=== PATIENT | male | born 1990 | race Caucasian/White ===

== ENCOUNTER 2024-12-14 15:56 | Inpatient (IN) | payer OTHER, SELFPAY ==
--- NOTE | ~2024-12-14 | XR_ITS ---
CLINICAL HISTORY: fever, ? aspiration 1 view chest x-ray Comparison: CT/SR - CT ANGIO CHEST PE PROTOCOL - 12/14/24 19:49 EDT Findings: Small right pleural effusion and underlying consolidative changes. Right lower lobe pneumonia is suspected. Heart size is normal. No acute fracture. IMPRESSION: Small right pleural effusion and underlying consolidative changes. Right lower lobe pneumonia is suspected. This document has been electronically signed by: Bernice Smith MD on 12/15/2024 20:40:26
--- NOTE | ~2024-12-14 | IR_ITS ---
EXAMINATION: XR FLUOROSCOPY guided lumbar puncture. CLINICAL INFORMATION: Altered mental status. Sepsis. COMPARISON: None available. TECHNIQUE: Following explaining procedure, benefits in risk, a written consent was obtained by 2 physicians as a necessity. Patient was placed prone on fluoroscopy table and and markers was placed on skin along the L4-5 disc level. The L4-5 disc level was cleaned and draped in usual sterile manner. A 22-gauge spinal needle was advanced from the marked site and the skin intrathecally at the L4-5 disc level. Stylet was removed and CSF fluid was collected in 4 test tubes. Postprocedure stylet was reintroduced and needle withdrawn. Complete hemostasis at puncture site. Sterile Band-Aid was placed at the puncture site. FINDINGS: Fluoroscopy lumbar puncture performed at L4-5 disc level. Approximately 14.5 mL of CSF fluid was collected. Opening CSF pressure measured 13.5 cm. FLUOROSCOPY TIME: 1.1 minute DOSE AREA PRODUCT: 0.976 uGy-m2 (microgray-meter squared) IR/IR fluoroscopy <1hr IMPRESSION: Successful fluoroscopy-guided L4-5 lumbar puncture performed. CSF fluid collected was sent to lab as per referring physician's orders. Electronically signed by: Liam Olea MD 12/18/2024 12:41 PM EDT
--- NOTE | ~2024-12-14 | CT_ITS ---
CLINICAL HISTORY: hypoxia, tachypnea CT angiography chest with contrast. 3D Postprocessing. Comparison: None Findings: Study degraded by motion artifact. The heart is normal size. RV/LV ratio is normal. The thoracic aorta is normal caliber. No central pulmonary embolus. Peripheral pulmonary embolus not excluded on this study. Bilateral posterior pulmonary opacities [id number]-left likely atelectasis but pneumonia not entirely excluded especially in the right lung base. Minimal lingular subsegmental atelectasis versus scarring. No pleural effusion pneumothorax Thyroid was not imaged. Mild wall thickening in mid to distal thoracic esophagus possibly mild esophagitis. Low-attenuation of the liver suggestive of steatosis Mild lateral curvature upper thoracic spine may represent mild scoliosis otherwise normal alignment. No acute fracture IMPRESSION: 1. No central pulmonary emboli. Limited examination for peripheral pulmonary embolism. 2. Posterior bilateral pulmonary opacities [id number]-left likely atelectasis but pneumonia not entirely excluded. 3. Mild wall thickening of mid to distal thoracic esophagus may represent mild esophagitis. This document has been electronically signed by: Taisha Orosco MD on 12/14/2024 21:45:35
--- NOTE | ~2024-12-14 | CT_ITS ---
CLINICAL HISTORY: altered mental status CT head without contrast Comparison: None Findings: No intra-axial mass, midline shift, hydrocephalus, or acute hemorrhage. No significant atrophy-like change or white matter disease. Mucosal thickening in bilateral maxillary sinuses [id number]-right. The orbits are unremarkable. There is no acute skull fracture. IMPRESSION: 1. No acute intracranial findings. This document has been electronically signed by: Taisha Orosco MD on 12/14/2024 21:29:32
--- NOTE | ~2024-12-14 | MR_ITS ---
EXAMINATION: MR BRAIN WITHOUT CONTRAST CLINICAL INFORMATION: Encephalopathy. COMPARISON: Correlated to CT dated December 14, 2024. TECHNIQUE: MRI of the brain was obtained using routine sequences without contrast. FINDINGS: No restricted diffusion. No acute intracranial hemorrhage, mass effect, midline shift, hydrocephalus or herniation. Bilateral, a few, scattered, less than 2 mm subcortical and deep white matter hyperintense T2 FLAIR signal involving centrum semiovale and burgos radiata, nonspecific. Flow-void signal within the main cerebral vessels is normal. Mild prominence of the extra-axial CSF spaces cerebral sulci. Cavum septum pellucidum, congenital. Posterior cranial fossa contents demonstrated no signal abnormality or gross masses. Sellar/suprasellar region demonstrates no signal abnormality or masses. Craniocervical junction is intact and normal. Polypoid mucosal thickening, maxillary sinuses more pronounced on the left side. MR/MR head/brain wo con IMPRESSION: No acute stroke/ischemia or acute brain abnormality. Electronically signed by: Lenard Quiroga MD 12/18/2024 07:19 AM EDT
--- NOTE | ~2024-12-14 | XR_ITS ---
CLINICAL HISTORY: low oxygen sats 1 view chest x-ray Comparison: None Findings: Heart size is top-normal. Mild elevation of the right hemidiaphragm. No consolidation, significant pleural effusion or pneumothorax. No acute fracture. Possible healed left clavicular fracture. IMPRESSION: 1. No acute findings. This document has been electronically signed by: Taisha Orosco MD on 12/14/2024 18:47:33
[2024-12-14 16:06] VITALS: BP 155/102; PULSE 100; RESP 35; TEMP 36.7; O2SAT 90; BMI 29.8
--- NOTE | 2024-12-14 16:10 | ECG_ITS ---
Test Reason : TACHYCARDIA Blood Pressure : */* mmHG Vent. Rate : 99 BPM Atrial Rate : 99 BPM P-R Int : 132 ms QRS Dur : 80 ms QT Int : 356 ms P-R-T Axes : 59 90 -16 degrees QTcB Int : 456 ms Normal sinus rhythm Rightward axis Abnormal QRS-T angle, consider primary T wave abnormality Abnormal ECG No previous ECGs available Referred By: Generic ED Physician Electronically Signed By: Jordon Baldwin
--- NOTE | 2024-12-14 16:24 | PC.NURSE ---
patient presents from [facility] facility, patient admitted on 12/11. patient presents today after being non verbal at facility, pacing back and forth in hallways. patient stated at facility I cant do this and has since been non verbal. ems found patient pacing down back hallway, with nasal mucous all over face, patient allowed featheredger and reducer machine to clean him up. in ED patient appears to be anxious, remains non verbal. patient is shaking left hand. patient only answered how tall he was, will not answer any other questions. patient allowed for vital signs and ekg. patient has sitter at bedside for safety, elopement band placed on patient.
--- NOTE | 2024-12-14 16:25 | ED_ITS ---
HPI - General Adult General Chief complaint: Altered Mental Status Stated complaint: non verbal, violent Time Seen by Provider: 12/14/24 16:25 History of Present Illness ED Provider: Ana Rosa SMITH narrative: The patient is a 34-year-old male who was sent to the emergency room here from the [facility]. History is limited as the patient is not speaking at the moment. According to paperwork from the [facility] the patient normally lives in [facility]. He had presented to a local emergency room because of behavioral changes. He has been admitted to the [facility] facility 3 days ago on December 11. According to the HPI at [facility] he presented with a flat affect and minimal verbalization throughout the assessment. He was described as displaying a poverty of thought and delay in response. However the patient was able to consent to have his provide additional information regarding his past psychiatric history. The patient seems to have a history of bipolar disorder and anxiety. Apparently the patient was sent to the emergency room here today because of an increasing degree of nonverbal behavior and also because of tachycardia and diaphoresis. No fever reported. The patient's medications at [facility] has been lamotrigine 50 mg b.i.d., propranolol 20 mg t.i.d., lorazepam 1 mg t.i.d., and daily nicotine patches. The patient seems to be awake and has his eyes open but he does not answer any questions. I was later able to speak with staff at [facility]. They told me that the patient seems to has been becoming increasingly catatonic over the last few days but that he has also had unusual bursts of energy where he has been running around and seeming to be excited. During these episodes however he has not been verbal. They say that during the episodes of excitement or agitation he has seemed to have trouble processing information. They also say that he has been incontinent of both stool and urine. They confirmed that there has not been a fever. They say that he was very sweaty at 1 point but that may be because of his degree of exertion when he was agitated. Apparently the patient has been receiving Zyprexa and Seroquel but these were stopped today. Overall the staff at the [facility] felt that his behavior was very concerning and felt he needed a medical evaluation and so sent him to the hospital here. They gave me the phone number for his Jes, . I was later able to speak to the patient's . She tells me that the patient was hospitalized 6 years ago for a manic episode at [facility]. After that hospitalization the patient was on a stable medication regimen of olanzapine, quetiapine, propranolol, lamotrigine, and lorazepam. She further told me that his medications were prescribed for a long time by his primary care doctor. 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 Because of the gap in prescribing coverage he was told he would have to go to the emergency room. She says that he 1st went to an emergency room on November 30 and was given a small prescription for lorazepam. He later had to return to the emergency room for another small prescription of lorazepam. The patient's tells me that the patient became increasingly withdrawn. He was not able to sleep. She says he could not eat. He seemed chronically nauseated and seemed to be losing weight. He stopped taking his other medications because he felt he could not eat. Ultimately, after not sleeping for 72 hours, she took him to an emergency room at [facility] last week on December 11. She says he was then transferred to [facility] on the . The patient's tells me that the patient is a cigarette smoker but that he does not use alcohol or street drugs or marijuana. Related Data Allergies Allergy/AdvReac Type Severity Reaction Status Date / Time sertraline [From Zoloft] Allergy Unknown Verified 12/14/24 16:10 Review of Systems 2 Review of Systems: Yes Unobtainable due to mental status [facility] Social History Social History Unable to assess alcohol history related to: Unable to respond and Refusing to respond Use of substances other than those prescribed or required for medical reasons: Refusing to respond Advance Directives: No Advance Directives Information Provided: Yes Do you have a plan to hurt others: No Plan Physical Exam ED Vital Signs: Vital Signs - 24 hr 12/14/24 16:06 12/14/24 17:36 12/14/24 19:44 Temperature 98.1 F Pulse Rate 100 90 Respiratory Rate 35 H 20 16 Blood Pressure 155/102 H 126/85 Pulse Oximetry 90 L 93 Oxygen Delivery Method Room Air Nasal Cannula Oxygen Flow Rate 2 12/14/24 20:00 12/14/24 22:00 12/15/24 00:00 Temperature 96.9 F 97.5 F 98.7 F Pulse Rate 86 82 100 Respiratory Rate 21 H 23 H 25 H Blood Pressure 144/95 H 146/81 H 137/94 H Pulse Oximetry 95 98 92 Oxygen Delivery Method Nasal Cannula Nasal Cannula Room Air Oxygen Flow Rate 2 2 BMI result Body Mass Index 29.8 Const Other: The patient is a well-developed 34-year-old. He seems to be awake because his eyes are open but he is not answering questions. Occasionally he will look at me. He seemed to be tremulous in his left hand but this seemed interruptible. He felt cool to the touch. HENMT Other: Face is symmetrical. Mucous membranes appear moist. Eyes Other: Pupils are midsize and equal, they are reactive to light, conjunctivae are clear, extraocular movements seem intact. Neck Other: No nuchal rigidity. No masses. Resp Effort & Inspection: normal respiratory effort Auscultation: clear to auscultation bilaterally Cardio Rate: tachycardic Rhythm: regular rhythm Heart sounds: S1 normal heart sound present and S2 normal heart sound present GI Other: The abdomen is soft and not apparently tender Skin Other: Skin was cool and pale and slightly moist but not frankly diaphoretic. Neuro Other: The patient seems to be awake. His eyes are open and he makes eye contact however the most part he did not answer questions. Initially he did not answer questions at all. Later he spoke somewhat but very look chronically. He had no dysarthria. His face seems symmetrical. He moves his neck easily. His neck is supple. He seems to have symmetrical tone in his extremities. 2+ reflexes at the knees and ankles. No clonus. Extrem Other: There is no peripheral edema. No calf swelling or tenderness or asymmetry. The feet seem well-perfused. He has good dorsalis pedis pulses bilaterally. Psych Other: The patient is awake and makes eye contact but seems to have an intense stare. It is not clear if he is able to process what is said to him. Only occasionally what he speak and there was certainly a paucity of speech. Medications Administered Discontinued Medications Generic Name Dose Route Start Last Admin Trade Name Jose PRN Reason Stop Dose Admin Diazepam 10 mg 12/14/24 18:34 12/14/24 18:41 Diazepam 10 Mg/2 Ml Cartridge IVPUSH 12/14/24 18:35 10 mg STAT STA Administration Haloperidol Lactate 5 mg 12/14/24 23:32 12/14/24 23:38 Haloperidol Lactate 5 Mg/Ml Vial IVPUSH 12/14/24 23:33 5 mg STAT STA Administration Lactated Ringer's 1,000 mls @ 999 mls/hr 12/14/24 18:15 12/14/24 19:30 Lr IV 12/14/24 19:15 Infused .Q1H1M VLADIMIR Infusion Lactated Ringer's 1,000 mls @ 999 mls/hr 12/14/24 20:30 12/14/24 21:26 Lr IV 12/14/24 21:30 Infused .Q1H1M VLADIMIR Infusion Iohexol 65 ml 12/14/24 20:01 12/14/24 20:01 Iohexol 350 Mg/Ml 100 Ml Infus..Btl IV 12/14/24 20:02 65 ml ONCE ONE Administration Lorazepam 2 mg 12/14/24 17:27 12/14/24 17:37 Lorazepam 2 Mg/Ml Vial IVPUSH 12/14/24 17:28 2 mg ONCE ONE Administration Lorazepam 2 mg 12/14/24 23:32 12/14/24 23:38 Lorazepam 2 Mg/Ml Vial IVPUSH 12/14/24 23:33 2 mg ONCE ONE Administration Lorazepam 2 mg 12/15/24 01:05 12/15/24 01:11 Lorazepam 2 Mg/Ml Vial IVPUSH 12/15/24 01:06 2 mg ONCE ONE Administration Medical Decision Making Medical Decision Making [facility] Narrative: The patient is a 34-year-old male with a history of a previous psychiatric hospitalization 6 years ago at [facility]. Apparently he was manic at the time. At discharge from [facility] 6 years ago he was on olanzapine, quetiapine, propranolol, lamotrigine, and lorazepam. According to the patient's the patient was fairly stable on these medications. His medications were prescribed by his PCP, Dr. Neri Li of [place], he did not have a psychiatrist. His PCP recently and although the patient was able to find a prescriber for his other medications he was not continued on his lorazepam. The last regular prescription the patient was able to citrus picker was on November 03 when he received a 28 day supply of lorazepam 1 mg b.i.d.. He went to an emergency room on November 30 and was prescribed 15 tablets of 0.5 mg lorazepam. This was supposed to last in 5 days. Apparently became quite withdrawn and sleepless after the reduction in his medications and his says that he had ultimately not slept for 3 days before she took him to the emergency room at [facility] on December 11. He was transferred to the [facility] the next day on December 12. He has been behaving strangely at the [facility]. I believe he has not been taking medications there. He has alternated between being catatonic and hyperactive. Here the patient seems to have a thought disorder. It is not clear whether he is responding to internal stimuli or whether he has trouble processing language. However he has a paucity of speech. He makes eye contact. Does not have any focal neurological deficit. His oxygen saturations were somewhat low and he was tachypneic although he did not appear in respiratory distress. Therefore ultimately a CT pulmonary angiogram was done that does not show signs of a PE. There were findings of atelectasis on the CT. I doubt he [place] pneumonia. [place] [id number]. However he is not febrile. His CRP is not significantly elevated. My overall impression was that the patient has behaviors probably related to his change in medications and I thought perhaps he was experiencing benzodiazepine withdrawal. Was 1st given 2 mg of IV lorazepam and later 10 mg of IV diazepam. He seemed to improve somewhat. He spoke a bit more any ate some food. He was able to stand and urinate in a urinal. However this seemed to be a transient improvement and he was given additional IV lorazepam and also 5 mg of IV haloperidol. He did not seem to have any beneficial result from the haloperidol. He seemed somewhat more agitated temporarily after the haloperidol. [facility] and spoke to a flight test shop mechanic. The flight test shop mechanic was not convinced that the patient's symptoms were likely a manifestation of benzodiazepine withdrawal. 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 At this point the patient remains primarily catatonic. His opens his eyes and makes eye contact but speaks very little. I will try additional IV lorazepam. Given his lack of improvement I do not think it would be appropriate to return him to [facility]. Given that he has seemed medically stable I do not see an indication for medical hospitalization. I think it would be reasonable to keep the patient in the emergency room for a Psychiatry consult in the morning to see if they have any additional recommendations for his care. Lab Data 12/14/24 17:16 12/14/24 17:12 Labs: Lab Results 12/14/24 12/14/24 12/14/24 Range/Units 17:09 17:10 17:11 WBC (4.8-10.8) X10*3/uL RBC (4.60-5.80) X10*6/uL Hgb (14.0-18.0) g/dl Hct (42.0-52.0) % MCV (80.0-98.0) fL MCH (27.0-33.0) pg MCHC (31.0-36.0) g/dl RDW (11.0-16.0) % Plt Count (160-400) X10*3/uL MPV (9.4-12.4) fL Immature Gran % (Auto) (0.0-0.4) % Neut % (Auto) (45-73) % Lymph % (Auto) (20-40) % [place] % (Auto) (2-11) % Eos % (Auto) (0-4) % Baso % (Auto) (0-2) % Lymph # (Auto) (1.2-4.9) X10*3/uL [place] # (Auto) (0.1-1.2) X10*3/uL Eos # (Auto) (0.0-0.4) X10*3/uL Baso # (Auto) (0.0-0.2) X10*3/uL Abs Immat Gran (auto) (0.00-0.03) X10*3/uL Absolute Neuts (auto) (2.0-8.3) x10*3/uL Absolute Nucleated RBC (0.0-0.012) X10*3/uL Nucleated RBC % (auto) (0.0-0.2) /100WBC Hold Purple Top PT 13.0 H (10.9-12.4) SEC INR 1.1 (0.9-1.1) D-Dimer High Sensitivty < 150 NG/ML VBG pH (7.32-7.43) VBG pCO2 mmHg VBG pO2 mmHg VBG HCO3 (22-26) mmol/L VBG O2 Saturation % VBG Base Excess mmol/L Sodium (135-145) mmol/L Potassium (3.3-5.1) mmol/L Chloride (96-108) mmol/L Carbon Dioxide (22-29) mmol/L Anion Gap (12-20) BUN (9-16) mg/dL Creatinine (0.5-1.4) mg/dL Estim Creat Clear Calc Estimated GFR Random Glucose (60-115) mg/dL Osmolality 303 (281-305) mosm/kg Lactic Acid (0.5-2.0) mmol/L Calcium (8.4-10.2) mg/dL Magnesium (1.6-2.6) mg/dL Total Bilirubin (0.0-1.0) mg/dL Direct Bilirubin (0.0-0.5) mg/dL AST (5-37) U/L ALT (0-40) U/L Alkaline Phosphatase (39-117) U/L Ammonia (13-55) umol/L Total Creatine Kinase (38-174) U/L Troponin I High Sens 28.6 (<3.5-35.0) ng/L C-Reactive Protein (< or = 0.50) mg/dL B-Natriuretic Peptide (<100) pg/mL Total Protein (6.5-8.0) g/dL Albumin (3.5-5.0) g/dL Lipase (8-78) U/L TSH (0.32-4.0) uIU/mL Hold Green Top See Note Urine Color Urine Appearance Urine pH (5.0-9.0) Ur Specific [place] (1.005-1.025) Urine Protein (Neg-Trace) mg/dL Urine Glucose (UA) (Negative) mg/dL Urine Ketones (Negative) mg/dL Urine Blood (Negative) Urine Nitrite (Negative) Ur Leukocyte Esterase (Negative) Salicylates < 5.0 L (15-30) mg/dL Urine Opiates Screen (Not Detect) Ur Buprenorphine Scrn (Not Detect) ng/mL Ur Oxycodone Screen (Not Detect) ng/mL Urine Methadone Screen (Not Detect) ng/mL Urine Fentanyl Screen (Not Detect) Acetaminophen < 3 (<30) mcg/mL Ur Barbiturates Screen (Not Detect) Ur Phencyclidine Scrn (Not Detect) Ur Amphetamines Screen (Not Detect) U Benzodiazepines Scrn (Not Detect) Urine Cocaine Screen (Not Detect) U Marijuana (THC) Screen (Not Detect) Ethyl Alcohol mg/dL Influenza Type A (PCR) NEGATIVE (Negative) Influenza Type B (PCR) NEGATIVE (Negative) RSV RNA Qual (PCR) NEGATIVE (Negative) SARS-CoV-2 RNA (RT-PCR) NEGATIVE (Negative) 12/14/24 12/14/24 12/14/24 Range/Units 17:12 17:16 17:19 WBC 16.9 H (4.8-10.8) X10*3/uL RBC 5.52 (4.60-5.80) X10*6/uL Hgb 18.2 H (14.0-18.0) g/dl Hct 49.3 (42.0-52.0) % MCV 89.3 (80.0-98.0) fL MCH 33.0 (27.0-33.0) pg MCHC 36.9 H (31.0-36.0) g/dl RDW 12.1 (11.0-16.0) % Plt Count 256 (160-400) X10*3/uL MPV 10.7 (9.4-12.4) fL Immature Gran % (Auto) 0.4 (0.0-0.4) % Neut % (Auto) 81.6 H (45-73) % Lymph % (Auto) 12.1 L (20-40) % [place] % (Auto) 5.6 (2-11) % Eos % (Auto) 0.1 (0-4) % Baso % (Auto) 0.2 (0-2) % Lymph # (Auto) 2.1 (1.2-4.9) X10*3/uL [place] # (Auto) 0.9 (0.1-1.2) X10*3/uL Eos # (Auto) 0.0 (0.0-0.4) X10*3/uL Baso # (Auto) 0.0 (0.0-0.2) X10*3/uL Abs Immat Gran (auto) 0.06 H (0.00-0.03) X10*3/uL Absolute Neuts (auto) 13.8 H (2.0-8.3) x10*3/uL Absolute Nucleated RBC 0.000 (0.0-0.012) X10*3/uL Nucleated RBC % (auto) 0.0 (0.0-0.2) /100WBC Hold Purple Top SEE NOTE PT (10.9-12.4) SEC INR (0.9-1.1) D-Dimer High Sensitivty NG/ML VBG pH 7.38 (7.32-7.43) VBG pCO2 31 mmHg VBG pO2 81 mmHg VBG HCO3 19 L (22-26) mmol/L VBG O2 Saturation 96.0 % VBG Base Excess -4.5 mmol/L Sodium 144 (135-145) mmol/L Potassium 4.6 (3.3-5.1) mmol/L Chloride 109 H (96-108) mmol/L Carbon Dioxide 20 L (22-29) mmol/L Anion Gap 20 (12-20) BUN 25 H (9-16) mg/dL Creatinine 1.24 (0.5-1.4) mg/dL Estim Creat Clear Calc 100.7 Estimated GFR > 60 Random Glucose 113 (60-115) mg/dL Osmolality (281-305) mosm/kg Lactic Acid 1.0 (0.5-2.0) mmol/L Calcium 9.7 (8.4-10.2) mg/dL Magnesium 2.5 (1.6-2.6) mg/dL Total Bilirubin 1.0 (0.0-1.0) mg/dL Direct Bilirubin 0.4 (0.0-0.5) mg/dL AST 41 H (5-37) U/L ALT 36 (0-40) U/L Alkaline Phosphatase 85 (39-117) U/L Ammonia 49 (13-55) umol/L Total Creatine Kinase 518 H (38-174) U/L Troponin I High Sens (<3.5-35.0) ng/L C-Reactive Protein 1.48 H (< or = 0.50) mg/dL B-Natriuretic Peptide < 10 (<100) pg/mL Total Protein 7.9 (6.5-8.0) g/dL Albumin 4.8 (3.5-5.0) g/dL Lipase 13 (8-78) U/L TSH 0.66 (0.32-4.0) uIU/mL Hold Green Top Urine Color Urine Appearance Urine pH (5.0-9.0) Ur Specific [place] (1.005-1.025) Urine Protein (Neg-Trace) mg/dL Urine Glucose (UA) (Negative) mg/dL Urine Ketones (Negative) mg/dL Urine Blood (Negative) Urine Nitrite (Negative) Ur Leukocyte Esterase (Negative) Salicylates (15-30) mg/dL Urine Opiates Screen (Not Detect) Ur Buprenorphine Scrn (Not Detect) ng/mL Ur Oxycodone Screen (Not Detect) ng/mL Urine Methadone Screen (Not Detect) ng/mL Urine Fentanyl Screen (Not Detect) Acetaminophen (<30) mcg/mL Ur Barbiturates Screen (Not Detect) Ur Phencyclidine Scrn (Not Detect) Ur Amphetamines Screen (Not Detect) U Benzodiazepines Scrn (Not Detect) Urine Cocaine Screen (Not Detect) U Marijuana (THC) Screen (Not Detect) Ethyl Alcohol < 10 mg/dL Influenza Type A (PCR) (Negative) Influenza Type B (PCR) (Negative) RSV RNA Qual (PCR) (Negative) SARS-CoV-2 RNA (RT-PCR) (Negative) 12/14/24 12/14/24 Range/Units 20:36 22:26 WBC (4.8-10.8) X10*3/uL RBC (4.60-5.80) X10*6/uL Hgb (14.0-18.0) g/dl Hct (42.0-52.0) % MCV (80.0-98.0) fL MCH (27.0-33.0) pg MCHC (31.0-36.0) g/dl RDW (11.0-16.0) % Plt Count (160-400) X10*3/uL MPV (9.4-12.4) fL Immature Gran % (Auto) (0.0-0.4) % Neut % (Auto) (45-73) % Lymph % (Auto) (20-40) % [place] % (Auto) (2-11) % Eos % (Auto) (0-4) % Baso % (Auto) (0-2) % Lymph # (Auto) (1.2-4.9) X10*3/uL [place] # (Auto) (0.1-1.2) X10*3/uL Eos # (Auto) (0.0-0.4) X10*3/uL Baso # (Auto) (0.0-0.2) X10*3/uL Abs Immat Gran (auto) (0.00-0.03) X10*3/uL Absolute Neuts (auto) (2.0-8.3) x10*3/uL Absolute Nucleated RBC (0.0-0.012) X10*3/uL Nucleated RBC % (auto) (0.0-0.2) /100WBC Hold Purple Top PT (10.9-12.4) SEC INR (0.9-1.1) D-Dimer High Sensitivty NG/ML VBG pH (7.32-7.43) VBG pCO2 mmHg VBG pO2 mmHg VBG HCO3 (22-26) mmol/L VBG O2 Saturation % VBG Base Excess mmol/L Sodium (135-145) mmol/L Potassium (3.3-5.1) mmol/L Chloride (96-108) mmol/L Carbon Dioxide (22-29) mmol/L Anion Gap (12-20) BUN (9-16) mg/dL Creatinine (0.5-1.4) mg/dL Estim Creat Clear Calc Estimated GFR Random Glucose (60-115) mg/dL Osmolality (281-305) mosm/kg Lactic Acid (0.5-2.0) mmol/L Calcium (8.4-10.2) mg/dL Magnesium (1.6-2.6) mg/dL Total Bilirubin (0.0-1.0) mg/dL Direct Bilirubin (0.0-0.5) mg/dL AST (5-37) U/L ALT (0-40) U/L Alkaline Phosphatase (39-117) U/L Ammonia (13-55) umol/L Total Creatine Kinase 416 H (38-174) U/L Troponin I High Sens 13.5 D (<3.5-35.0) ng/L C-Reactive Protein (< or = 0.50) mg/dL B-Natriuretic Peptide (<100) pg/mL Total Protein (6.5-8.0) g/dL Albumin (3.5-5.0) g/dL Lipase (8-78) U/L TSH (0.32-4.0) uIU/mL Hold Green Top Urine Color Yellow Urine Appearance Clear Urine pH 6.0 (5.0-9.0) Ur Specific [place] >= 1.030 H (1.005-1.025) Urine Protein Trace (Neg-Trace) mg/dL Urine Glucose (UA) Negative (Negative) mg/dL Urine Ketones 80 (Negative) mg/dL Urine Blood Negative (Negative) Urine Nitrite Negative (Negative) Ur Leukocyte Esterase Negative (Negative) Salicylates (15-30) mg/dL Urine Opiates Screen Not Detected (Not Detect) Ur Buprenorphine Scrn Not Detected (Not Detect) ng/mL Ur Oxycodone Screen Not Detected (Not Detect) ng/mL Urine Methadone Screen Not Detected (Not Detect) ng/mL Urine Fentanyl Screen Not Detected (Not Detect) Acetaminophen (<30) mcg/mL Ur Barbiturates Screen Not Detected (Not Detect) Ur Phencyclidine Scrn Not Detected (Not Detect) Ur Amphetamines Screen Not Detected (Not Detect) U Benzodiazepines Scrn POSITIVE H (Not Detect) Urine Cocaine Screen Not Detected (Not Detect) U Marijuana (THC) Screen Not Detected (Not Detect) Ethyl Alcohol mg/dL Influenza Type A (PCR) (Negative) Influenza Type B (PCR) (Negative) RSV RNA Qual (PCR) (Negative) SARS-CoV-2 RNA (RT-PCR) (Negative) Independent Interpretation I performed an independent interpretation of an: EKG Interpretation: EKG at 16:14 shows normal sinus rhythm at 99 beats per minute. No definite acute ischemic changes. Critical Care Time Critical Care Time Critical Care Time: Yes Total Critical Care Time: 60 Attestation: The patient was critically ill with a high probability of imminent or life- threatening deterioration. ?I spent greater than 30 minutes of discontinuous time evaluating the patient, delivering critical care at the bedside, discussing evaluating data with consultants. ?Critical care time does not include time spent performing separately billable procedures or teaching. ?Time spent performing critical care with 60 minutes. Discharge Plan Discharge Clinical Impression: Altered mental status, Catatonia Patient Disposition: Still a Patient Print Language: Nam[place]
--- NOTE | 2024-12-14 16:35 | PC.NURSE ---
patient noted to have two nicotine patches on. one dated for today and one undated. undated patch taken off
[2024-12-14 17:21] LABS: MANUAL DIFF FLAG NO
--- NOTE | 2024-12-14 17:23 | PC.NURSE ---
shelly simmons contacted by this RN for collateral information for
[2024-12-14 17:24] LABS: Venous Blood Gas Refer to POC result
[2024-12-14 17:24] LABS: VBG Base Excess -4.5 mmol/L; VBG HCO3 19 mmol/L (22-26); VBG pCO2 31 mmHg; VBG pH 7.38 (7.32-7.43); VBG pO2 81 mmHg
[2024-12-14 17:25] LABS: Basophils Percent Auto 0.2 % (0-2); Eosinophils Percent Auto 0.1 % (0-4); Hematocrit 49.3 % (42.0-52.0); Hemoglobin 18.2 g/dl (14.0-18.0); Imm Gran Abs Auto 0.06 X10*3/uL (0.00-0.03); Imm Gran Pct Auto 0.4 % (0.0-0.4); Lymphocytes Absolute Auto 2.1 X10*3/uL (1.2-4.9); Lymphocytes Percent Auto 12.1 % (20-40); Mean Corpuscular HGB Conc 36.9 g/dl (31.0-36.0); Mean Corpuscular Volume 89.3 fL (80.0-98.0); Mean Platelet Volume 10.7 fL (9.4-12.4); Monocytes Absolute Auto 0.9 X10*3/uL (0.1-1.2); Monocytes Percent Auto 5.6 % (2-11); Neutrophils Absolute Auto 13.8 x10*3/uL (2.0-8.3); Neutrophils Percent Auto 81.6 % (45-73); Platelet Count 256 X10*3/uL (160-400); Red Blood Count 5.52 X10*6/uL (4.60-5.80); Red Cell Distribution Width 12.1 % (11.0-16.0); White Blood Count 16.9 X10*3/uL (4.8-10.8)
[2024-12-14 17:36] VITALS: BP 126/85; PULSE 90; RESP 20; O2SAT 93
[2024-12-14 17:36] LABS: Ammonia 49 umol/L (13-55)
[2024-12-14] MEDS: LORazepam 2 MG/ML VIAL IVPUSH ×2 (17:37→23:38)
--- NOTE | 2024-12-14 17:45 | PC.NURSE ---
patient spoke to this RN stated why is all this shit on me , patient was referring to cardiac leads. patient desat down to 88% on room air, placed on 2l NC. patient medicated per MAR, patient abdomen palpated soft and non tender, patient chest palpated, patient states he had pain in the center of chest, patient stated he had a cold prior to going to [facility]. patient stated he feels as if he is seeing flashing lights, patient also stated that he was having a hard time answering questions due to auditory hallucinations. patient remains awake and alert, patient not able to answer where he is/year/situation.
[2024-12-14 17:46] LABS: B Type Natriuretic Peptide < 10 pg/mL (<100)
[2024-12-14 17:53] LABS: Alanine Aminotransferase 36 U/L (0-40); Albumin Level 4.8 g/dL (3.5-5.0); Alkaline Phosphatase 85 U/L (39-117); Anion Gap 20 (12-20); Aspartate Amino Transferase 41 U/L (5-37); Bilirubin Direct 0.4 mg/dL (0.0-0.5); Blood Urea Nitrogen 25 mg/dL (9-16); C Reactive Protein 1.48 mg/dL (< or = 0.50); Calcium 9.7 mg/dL (8.4-10.2); Carbon Dioxide 20 mmol/L (22-29); Chloride 109 mmol/L (96-108); Creatinine Clr Calc Pharmacy 100.7; Estimated Glomerular Filt Rate > 60; Ethanol < 10 mg/dL; Glucose Random 113 mg/dL (60-115); Lipase 13 U/L (8-78); Magnesium 2.5 mg/dL (1.6-2.6); Potassium 4.6 mmol/L (3.3-5.1); Sodium 144 mmol/L (135-145); Total Protein 7.9 g/dL (6.5-8.0)
[2024-12-14 17:53] LABS: Acetaminophen LAB < 3 mcg/mL (<30); Salicylate < 5.0 mg/dL (15-30)
[2024-12-14 17:54] LABS: Troponin-I High Sensitivity 28.6 ng/L (<3.5-35.0)
[2024-12-14 18:07] LABS: INTERNATIONAL NORM RATIO 1.1 (0.9-1.1)
[2024-12-14 18:10] LABS: Osmolality, Serum 303 mosm/kg (281-305)
[2024-12-14] MEDS: Lactated Ringers 1,000 ML 999 ML IV ×2 (18:18→20:25)
--- NOTE | 2024-12-14 18:33 | PC.NURSE ---
patient becoming more talkative, requested water. patient given water.
[2024-12-14] MEDS: diazePAM 10 MG/2 ML CARTRIDGE IVPUSH (18:41)
[2024-12-14 18:53] LABS: D Dimer High Sensitivity < 150 NG/ML
[2024-12-14 18:55] LABS: Influenza A PCR NEGATIVE (Negative); Influenza B PCR NEGATIVE (Negative); Resp Syncy Virus RNA Qual PCR NEGATIVE (Negative); SARS COV2 PCR INHOUSE NEGATIVE (Negative)
--- NOTE | 2024-12-14 19:07 | PC.NURSE ---
Assumed care for pt. Pt sleeping at the bedside, diaphoretic. O2 sat 88%. Pt placed on 2L NC with O2 improvement to 96%. NSR monitor with HR 80's. made aware. 1:1 sitter at bedside. Monitoring is ongoing.
[2024-12-14 19:44] VITALS: RESP 16
[2024-12-14 20:00] VITALS: BP 144/95; PULSE 86; RESP 21; TEMP 36.1; O2SAT 95
[2024-12-14] MEDS: iohexoL 350 MG/ML 100 ML INFUS..BTL 65 ML IV (20:01)
[2024-12-14 20:48] LABS: Thyroid Stimulating Hormone 0.66 uIU/mL (0.32-4.0)
[2024-12-14 21:03] LABS: Troponin-I High Sensitivity 13.5 ng/L (<3.5-35.0)
[2024-12-14 22:00] VITALS: BP 146/81; PULSE 82; RESP 23; TEMP 36.4; O2SAT 98
[2024-12-14 22:34] LABS: Appearance Urine Clear; Color Urine Yellow; Glucose Urine UA Negative (Negative); Leukocyte Esterase Urine Negative (Negative); Nitrite Urine Negative (Negative); Specific Gravity - Urine >= 1.030 (1.005-1.025); Urine Blood Negative (Negative); Urine Ketones 80 mg/dL (Negative); Urine Protein Trace mg/dL (Neg-Trace)
[2024-12-14 22:44] LABS: Amphetamine Screen Urine Not Detected (Not Detect); Barbiturates, Urine Not Detected (Not Detect); Benzodiazepines Screen Urine POSITIVE (Not Detect); Buprenorphine Scr Not Detected (Not Detect); Cannabinoid Screen Urine Not Detected (Not Detect); Cocaine Screen Urine Not Detected (Not Detect); Fentanyl, urine Not Detected (Not Detect); Methadone Screen, Urine Not Detected (Not Detect); Opiate Screen Urine Not Detected (Not Detect); Oxycodone Screen Urine Not Detected (Not Detect); Phencyclidine Screen Urine Not Detected (Not Detect)
[2024-12-14 23:00] LABS: Venous Blood Gas Refer to POC result
--- NOTE | 2024-12-14 23:27 | PC.NURSE ---
Pt is alert and awake. MD at bedside removed NC. Pt sustaining O2 sat at 94% RA. No apparent apparent distress noted. Pt given food and drink. Monitoring is ongoing.
[2024-12-14] MEDS: Haloperidol Lactate 5 MG/ML VIAL IVPUSH (23:38)
[2024-12-15] VITALS (16 sets, daily range): BP systolic 121–159; BP diastolic 58–109; PULSE 94–122; RESP 18–36; TEMP 36.6–39; O2SAT 2–95
[2024-12-15] MEDS: LORazepam 2 MG/ML VIAL IVPUSH ×2 (01:11→02:38)
--- NOTE | 2024-12-15 01:18 | PC.NURSE ---
This nurse made aware that pt made an attempt to leave by getting out of bed and walking out of the room. Pt redirected to the bedside by staff members. aware and new orders placed in the MAR. Pt medicated and tolerated well. Pt is awake and alert. No verbal response to questions or engage in conversation. Pt observed to be quiet and withdrawn. Appears uninterested in surroundings. No sign of distress or agitation. 1:1 sitter remains at bedside. Elopement band in place. Monitoring is ongoing.
[2024-12-15] MEDS: Dextrose 5 % and Lactated Ring 1,000 ML 200 ML IVCONT ×4 (02:45→17:27)
--- NOTE | 2024-12-15 04:15 | PC.NURSE ---
Luciano from [facility] called for an update. Update provided.
--- NOTE | 2024-12-15 04:59 | MHC.EDTECH ---
Pt given water and sandwich, had a few sips and is currently taking small bites of sandwich.
[2024-12-15] MEDS: LORazepam 2 MG/ML VIAL 1 MG IVPUSH (09:40)
--- NOTE | 2024-12-15 15:38 | PM.PSYCN ---
History of Present Illness Date of Service: 12/15/2024 Chief Complaint: non verbal, violent Reason for Consult: catatonia Discussed with referring provider: Yes Sources of Information: patient interviewed, chart reviewed and crisis/core team assessment reviewed HPI Narrative: Mr. Ledesma is a 34 year-old male who was brought via EMS from [facility]. It appears pt had been treated for catatonia and psychosis after not having his psychiatric medications due to prescribing passing away. Pertinent labs in the ED include CBC with leukocytosis (WBC 16.7), CMP without electrolyte abnormalities, BUN 25, Cr 1.24, creatinine clearance of 100. VS notable for tachepnea (RR between 22-30), mildly tachycardic, temp at some point today was 100.1 Repeat of CBC and CMP showed improvement in WBC to 13.5, BUN down to 13, Cr 0.85, creatinine clearance 146.9. No electrolyte abnormalities. LFTs wnl. ammonia 49. Head CT without any acute findings. CTA without central PE, bilat opacities more pronounced on right side. O2 sat variable from 90% on arrival, to 92-93 on RA, given nasal canula 2L intermittently. No cough. He has received total of 7mg IV ativan since arrival in the ED at 5pm on 12/14 and last dose at 9:40am. He was also given haldol 5mg IM. He was also given diazepam 10mg IM. Pt seen in the ED. He is lying in bed. His eyes are open. He does move his head. He does not respond to any questions. When asked to lift his hand he does not follow command. He does pull back when tihs technical report writer attempted to lift his arm. But when checking for waxy flexibility, pt's arm stays in same position. Some repetitive movement of the hands but not tremors nor involuntary movements, seems like purposeless behaviors. Past Psychiatric History: Inpt: liat 6 years ago. Past medication trials: olanzapine, ativan 2mg/daily Medical Evaluation Reviewed: Yes Diagnostics Vital Signs (24Hr): Vital Signs - 24 hr 12/14/24 16:06 12/14/24 17:36 12/14/24 19:44 Temperature 98.1 F Pulse Rate 100 90 Respiratory Rate 35 H 20 16 Blood Pressure 155/102 H 126/85 Pulse Oximetry 90 L 93 Oxygen Delivery Method Room Air Nasal Cannula Oxygen Flow Rate 2 03/16/25 20:00 12/14/24 22:00 12/15/24 00:00 Temperature 96.9 F 97.5 F 98.7 F Pulse Rate 86 82 100 Respiratory Rate 21 H 23 H 25 H Blood Pressure 144/95 H 146/81 H 137/94 H Pulse Oximetry 95 98 92 Oxygen Delivery Method Nasal Cannula Nasal Cannula Room Air Oxygen Flow Rate 2 2 12/15/24 02:50 12/15/24 05:01 12/15/24 06:00 Temperature 98 F Pulse Rate 107 H 105 H 112 H Respiratory Rate 25 H 24 H 27 H Blood Pressure 131/92 H 142/96 H 141/88 H Pulse Oximetry 92 92 92 Oxygen Delivery Method Room Air Nasal Cannula Nasal Cannula Oxygen Flow Rate 2 2 12/15/24 07:31 12/15/24 08:16 12/15/24 09:28 Temperature 100.1 F 99.4 F Pulse Rate 122 H 112 H 104 H Respiratory Rate 19 31 H 30 H Blood Pressure 143/98 H 131/91 H 127/74 Pulse Oximetry 92 2 L 93 Oxygen Delivery Method Nasal Cannula Room Air Nasal Cannula Oxygen Flow Rate 2 2 12/15/24 12:08 12/15/24 15:18 Temperature 99 F Pulse Rate 103 H 99 Respiratory Rate 30 H 32 H Blood Pressure 139/105 H 159/109 H Pulse Oximetry 91 L 92 Oxygen Delivery Method Nasal Cannula Room Air Oxygen Flow Rate 2 BMI result Body Mass Index 29.8 Labs 12/15/24 17:26 12/15/24 17:26 Labs: Laboratory Results - last 48 hr 12/14/24 12/14/24 12/14/24 17:09 17:10 17:11 WBC RBC Hgb Hct MCV MCH MCHC RDW Plt Count MPV Immature Gran % (Auto) Neut % (Auto) Lymph % (Auto) [place] % (Auto) Eos % (Auto) Baso % (Auto) Lymph # (Auto) [place] # (Auto) Eos # (Auto) Baso # (Auto) Abs Immat Gran (auto) Absolute Neuts (auto) Absolute Nucleated RBC Nucleated RBC % (auto) Hold Purple Top PT 13.0 H INR 1.1 D-Dimer High Sensitivty < 150 VBG pH VBG pCO2 VBG pO2 VBG HCO3 VBG O2 Saturation VBG Base Excess Sodium Potassium Chloride Carbon Dioxide Anion Gap BUN Creatinine Estim Creat Clear Calc Estimated GFR Random Glucose Osmolality 303 Lactic Acid Calcium Magnesium Total Bilirubin Direct Bilirubin AST ALT Alkaline Phosphatase Ammonia Total Creatine Kinase Troponin I High Sens 28.6 C-Reactive Protein B-Natriuretic Peptide Total Protein Albumin Lipase TSH Hold Green Top See Note Urine Color Urine Appearance Urine pH Ur Specific [place] Urine Protein Urine Glucose (UA) Urine Ketones Urine Blood Urine Nitrite Ur Leukocyte Esterase Salicylates < 5.0 L Urine Opiates Screen Ur Buprenorphine Scrn Ur Oxycodone Screen Urine Methadone Screen Urine Fentanyl Screen Acetaminophen < 3 Ur Barbiturates Screen Ur Phencyclidine Scrn Ur Amphetamines Screen U Benzodiazepines Scrn Urine Cocaine Screen U Marijuana (THC) Screen Ethyl Alcohol Influenza Type A (PCR) NEGATIVE Influenza Type B (PCR) NEGATIVE RSV RNA Qual (PCR) NEGATIVE SARS-CoV-2 RNA (RT-PCR) NEGATIVE 12/14/24 12/14/24 12/14/24 17:12 17:16 17:19 WBC 16.9 H RBC 5.52 Hgb 18.2 H Hct 49.3 MCV 89.3 MCH 33.0 MCHC 36.9 H RDW 12.1 Plt Count 256 MPV 10.7 Immature Gran % (Auto) 0.4 Neut % (Auto) 81.6 H Lymph % (Auto) 12.1 L [place] % (Auto) 5.6 Eos % (Auto) 0.1 Baso % (Auto) 0.2 Lymph # (Auto) 2.1 [place] # (Auto) 0.9 Eos # (Auto) 0.0 Baso # (Auto) 0.0 Abs Immat Gran (auto) 0.06 H Absolute Neuts (auto) 13.8 H Absolute Nucleated RBC 0.000 Nucleated RBC % (auto) 0.0 Hold Purple Top SEE NOTE PT INR D-Dimer High Sensitivty VBG pH 7.38 VBG pCO2 31 VBG pO2 81 VBG HCO3 19 L VBG O2 Saturation 96.0 VBG Base Excess -4.5 Sodium 144 Potassium 4.6 Chloride 109 H Carbon Dioxide 20 L Anion Gap 20 BUN 25 H Creatinine 1.24 Estim Creat Clear Calc 100.7 Estimated GFR > 60 Random Glucose 113 Osmolality Lactic Acid 1.0 Calcium 9.7 Magnesium 2.5 Total Bilirubin 1.0 Direct Bilirubin 0.4 AST 41 H ALT 36 Alkaline Phosphatase 85 Ammonia 49 Total Creatine Kinase 518 H Troponin I High Sens C-Reactive Protein 1.48 H B-Natriuretic Peptide < 10 Total Protein 7.9 Albumin 4.8 Lipase 13 TSH 0.66 Hold Green Top Urine Color Urine Appearance Urine pH Ur Specific [place] Urine Protein Urine Glucose (UA) Urine Ketones Urine Blood Urine Nitrite Ur Leukocyte Esterase Salicylates Urine Opiates Screen Ur Buprenorphine Scrn Ur Oxycodone Screen Urine Methadone Screen Urine Fentanyl Screen Acetaminophen Ur Barbiturates Screen Ur Phencyclidine Scrn Ur Amphetamines Screen U Benzodiazepines Scrn Urine Cocaine Screen U Marijuana (THC) Screen Ethyl Alcohol < 10 Influenza Type A (PCR) Influenza Type B (PCR) RSV RNA Qual (PCR) SARS-CoV-2 RNA (RT-PCR) 12/14/24 12/14/24 20:36 22:26 WBC RBC Hgb Hct MCV MCH MCHC RDW Plt Count MPV Immature Gran % (Auto) Neut % (Auto) Lymph % (Auto) [place] % (Auto) Eos % (Auto) Baso % (Auto) Lymph # (Auto) [place] # (Auto) Eos # (Auto) Baso # (Auto) Abs Immat Gran (auto) Absolute Neuts (auto) Absolute Nucleated RBC Nucleated RBC % (auto) Hold Purple Top PT INR D-Dimer High Sensitivty VBG pH VBG pCO2 VBG pO2 VBG HCO3 VBG O2 Saturation VBG Base Excess Sodium Potassium Chloride Carbon Dioxide Anion Gap BUN Creatinine Estim Creat Clear Calc Estimated GFR Random Glucose Osmolality Lactic Acid Calcium Magnesium Total Bilirubin Direct Bilirubin AST ALT Alkaline Phosphatase Ammonia Total Creatine Kinase 416 H Troponin I High Sens 13.5 D C-Reactive Protein B-Natriuretic Peptide Total Protein Albumin Lipase TSH Hold Green Top Urine Color Yellow Urine Appearance Clear Urine pH 6.0 Ur Specific [place] >= 1.030 H Urine Protein Trace Urine Glucose (UA) Negative Urine Ketones 80 Urine Blood Negative Urine Nitrite Negative Ur Leukocyte Esterase Negative Salicylates Urine Opiates Screen Not Detected Ur Buprenorphine Scrn Not Detected Ur Oxycodone Screen Not Detected Urine Methadone Screen Not Detected Urine Fentanyl Screen Not Detected Acetaminophen Ur Barbiturates Screen Not Detected Ur Phencyclidine Scrn Not Detected Ur Amphetamines Screen Not Detected U Benzodiazepines Scrn POSITIVE H Urine Cocaine Screen Not Detected U Marijuana (THC) Screen Not Detected Ethyl Alcohol Influenza Type A (PCR) Influenza Type B (PCR) RSV RNA Qual (PCR) SARS-CoV-2 RNA (RT-PCR) Medications Medications Current Medications Dextrose/Lactated Ringer's (D5lr) 1,000 mls @ 200 mls/hr IVCONT .Q5H VLADIMIR Last Admin: 12/15/24 13:22 Dose: 200 mls/hr Lorazepam (Lorazepam 2 Mg/Ml Vial) 2 mg IVPUSH TID VLADIMIR Allergies Allergies Allergy/AdvReac Type Severity Reaction Status Date / Time sertraline [From Zoloft] Allergy Unknown Verified 12/14/24 16:10 Assessment & Plan Assessment & Plan (1) Bipolar I disorder with catatonia: Status: Acute Code(s): F31.9 - Bipolar disorder, unspecified; F06.1 - Catatonic disorder due to known physiological condition Plan Mr. Ledesma is a 34 year-old male who was admitted to [facility] due to s/s of catatonia and psychosis. He was transferred to [facility] ED as pt increasingly more mute, not eating, not responding to benzodiazepine tx. In the ED, pt with leukocytosis, BUN elevation and Cr elevation most likely related to dehydration.Tachypnea. Mild elevation of CK 400. CTA did not show PE, bilat opacities lungs more on right than left side. He had temp of 100.1 but not further than that. He continues to present with s/s of catatonia including mutism, negativism, and waxy flexibility. Limited response to benzodiazepine thus far. Given VS abnormalities noted (tachypnea, htn, elevation in temp but not febrile)- monitor worsening of VS which may suggest a malignant catatonia versus catatonia. PLAN May need ECT. For now will start high doses of ativan 3mg IV q4 schedule. reassess tomorrow morning, if medically clear for either inpt psych or if worsens medically may need support from medicine while treating malignant catatonia (not present at the moment but given VS abnormalties along with leukocytosis need to monitor closely). This technical report writer communicated with about current plan. Total time managing care of this patient today ____ minutes.
[2024-12-15] MEDS: LORazepam 2 MG/ML VIAL 3 MG IVPUSH ×2 (15:47→19:56)
--- NOTE | 2024-12-15 15:50 | PC.NURSE ---
pt continues to be non verbal, eyes open and does make eye contact, staring at sitter at times, Dr Kan to bedside and suggested we give benzos, 3mg iv ativan given as ordered, skin wpd , sr on monito 90, sitter at bedside
--- NOTE | 2024-12-15 16:06 | PHA.MEDREC ---
Pharmacy Consult ? Medication Reconciliation Pharmacy has completed the medication reconciliation. Utilized list from [facility].
--- NOTE | 2024-12-15 17:29 | PC.NURSE ---
pt still non verbal, sr on monitor, sitter at bedside, pt had removed his o2 mult times during the day and spo2 maintained in low 90's but pt dipped down to 80 and then back up again, placed back on 2lpm stiven and informed
[2024-12-15 17:33] LABS: Basophils Percent Auto 0.2 % (0-2); Eosinophils Percent Auto 0.1 % (0-4); Hematocrit 42.7 % (42.0-52.0); Hemoglobin 14.8 g/dl (14.0-18.0); Imm Gran Abs Auto 0.06 X10*3/uL (0.00-0.03); Imm Gran Pct Auto 0.4 % (0.0-0.4); Lymphocytes Absolute Auto 2.1 X10*3/uL (1.2-4.9); Lymphocytes Percent Auto 15.2 % (20-40); MANUAL DIFF FLAG NO; Mean Corpuscular HGB Conc 34.7 g/dl (31.0-36.0); Mean Corpuscular Hemoglobin 32.1 pg (27.0-33.0); Mean Corpuscular Volume 92.6 fL (80.0-98.0); Mean Platelet Volume 10.7 fL (9.4-12.4); Monocytes Absolute Auto 0.8 X10*3/uL (0.1-1.2); Monocytes Percent Auto 6.2 % (2-11); Neutrophils Absolute Auto 10.5 x10*3/uL (2.0-8.3); Neutrophils Percent Auto 77.9 % (45-73); Platelet Count 178 X10*3/uL (160-400); Red Blood Count 4.61 X10*6/uL (4.60-5.80); Red Cell Distribution Width 12.3 % (11.0-16.0); White Blood Count 13.5 X10*3/uL (4.8-10.8)
[2024-12-15 17:49] LABS: Alanine Aminotransferase 22 U/L (0-40); Albumin Level 3.7 g/dL (3.5-5.0); Alkaline Phosphatase 66 U/L (39-117); Anion Gap 9 (12-20); Aspartate Amino Transferase 32 U/L (5-37); Blood Urea Nitrogen 13 mg/dL (9-16); Calcium 8.4 mg/dL (8.4-10.2); Carbon Dioxide 27 mmol/L (22-29); Chloride 108 mmol/L (96-108); Creatinine Clr Calc Pharmacy 146.9; Estimated Glomerular Filt Rate > 60; Glucose Random 166 mg/dL (60-115); Potassium 3.4 mmol/L (3.3-5.1); Sodium 141 mmol/L (135-145)
[2024-12-15] MEDS: Albuterol/Iprat 2.5/0.5MG 3 ML AMPUL.NEB INHALE (18:47)
[2024-12-15 19:13] LABS: C Reactive Protein 3.76 mg/dL (< or = 0.50)
--- NOTE | 2024-12-15 19:18 | P.HPHOSP_ITS ---
History of Present Illness Date of Service: 12/15/24 Attending physician on admission: Tomasa Cheek Chief Complaint: fevers, catatonia 34-year-old male with history of bipolar 1 disorder who had been admitted to [facility] from [facility] due to catatonia presented to the ED yesterday due to increased behavioral changes, medication refusal and delay in response. The patient is nonverbal and catatonic on exam and therefore review of systems is unable to be obtained. History obtained from chart as well as ED provider. Apparently, the patient's primary care provider had and he has been without his lorazepam prescription and was advised to go to the ED for refills. His reports compliance with lamotrigine, quetiapine, propranolol, and olanzapine. His reports he has been stable on these medications, however since the beginning of November, has become increasingly withdrawn and unable to sleep or eat. She reported that he had been losing weight and ultimately stopped taking his other medications as he felt he could not eat. After not sleeping for 72 hours, she took him to an emergency room at [facility] and was then transferred to [facility] on December 12. On arrival yesterday, he was tachycardic, tachypneic, and diaphoretic, nonverbal, but making eye contact. He did have a leukocytosis of 16, was not thought to have an active infection at that time. No fevers. He did ultimately desaturate to 90% and was placed on 2 L supplemental O2 with improvement to 92-95%. Head CT obtained yesterday negative for any acute intracranial abnormality. Chest x-ray yesterday without any acute cardiopulmonary abnormality. CTA of the chest negative for PE and showed posterior bilateral pulmonary opacity right greater than left likely atelectasis but pneumonia not excluded. At that time, atelectasis was favored. He was evaluated by Psychiatry who suggested patient may need ECT and recommending starting high doses of Ativan 3 mg IV q.4h to be reassessed tomorrow. Suggesting, possible need for support for medicine while treating potential malignant catatonia which was not felt to be present at the moment but given vital sign abnormalities along with leukocytosis, Psychiatry recommending close monitoring. Today, patient developed fever of 102.5 with associated tachypnea, tachycardia and persistent hypoxia to 88% on room air, maintaining O2 sat of 95% on 2 L. repeat WBC 13.5. Renal function and electrolyte levels normal. Lactic acid 1.3. Total CK 416. CRP 3.76. Urinalysis not indicative of infection but does show elevated specific gravity. Urine tox screen positive for benzos only. Repeat chest x-ray is pending. The patient has been on a regular diet with limited p.o. intake. Given hypoxia, fevers, elevated white count associated with catatonia there is suspicion for aspiration pneumonia. Review of Systems 2 Review of Systems: Yes Unobtainable due to mental status [facility] Medical History (Updated 12/15/24 @ 20:24 by Shaquille Oseguera MD) Bipolar I disorder with catatonia Social History Unable to assess alcohol history related to: Unable to respond and Refusing to respond Use of substances other than those prescribed or required for medical reasons: Refusing to respond Advance Directives: No Advance Directives Information Provided: Yes Do you have a plan to hurt others: No Plan Meds Allergies Allergy/AdvReac Type Severity Reaction Status Date / Time sertraline [From Zoloft] Allergy Unknown Verified 12/14/24 16:10 Active Medications: Current Medications Dextrose/Lactated Ringer's (D5lr) 1,000 mls @ 200 mls/hr IVCONT .Q5H [facility] Last Admin: 12/15/24 17:27 Dose: 200 mls/hr Lorazepam (Lorazepam 2 Mg/Ml Vial) 3 mg IVPUSH Q4H [facility] Last Admin: 12/15/24 15:47 Dose: 3 mg Home Medications ?Medication ?Instructions ?Recorded ?Confirmed ?Last Taken ?Type ibuprofen 600 mg tablet 600 mg PO TID PRN Pain 12/15/24 12/15/24 Unknown History lamotrigine 25 mg tablet 50 mg PO BID 12/15/24 12/15/24 Unknown History lorazepam 0.5 mg tablet 0.5 mg PO BID 12/15/24 12/15/24 Unknown History olanzapine 15 mg tablet 30 mg PO BEDTIME 12/15/24 12/15/24 Unknown History propranolol 20 mg tablet 20 mg PO TID 12/15/24 12/15/24 Unknown History quetiapine 200 mg tablet 200 mg PO TID 12/15/24 12/15/24 Unknown History Physical Exam 2 Vital Signs and Narrative: Vital Signs: Last Vital Signs Temp 99 F 12/15/24 12:08 Pulse 106 H 12/15/24 18:52 Resp 18 12/15/24 18:52 BP 152/98 H 12/15/24 17:26 Pulse Ox 93 12/15/24 17:27 O2 Del Method Nasal Cannula 12/15/24 17:27 O2 Flow Rate 2 12/15/24 17:27 BMI result Body Mass Index 29.8 Results Labs 12/15/24 17:26 12/15/24 17:26 Labs: Laboratory Results - last 24 hr 12/14/24 12/14/24 12/14/24 17:12 20:36 22:26 MCV MCH MCHC RDW Plt Count MPV Immature Gran % (Auto) Neut % (Auto) Lymph % (Auto) [place] % (Auto) Eos % (Auto) Baso % (Auto) Lymph # (Auto) [place] # (Auto) Eos # (Auto) Baso # (Auto) Abs Immat Gran (auto) Absolute Neuts (auto) Absolute Nucleated RBC Nucleated RBC % (auto) Anion Gap Estim Creat Clear Calc Estimated GFR Random Glucose Calcium Total Bilirubin AST ALT Alkaline Phosphatase Total Creatine Kinase 416 H C-Reactive Protein Total Protein Albumin TSH 0.66 Urine Color Yellow Urine Appearance Clear Urine pH 6.0 Ur Specific [place] >= 1.030 H Urine Protein Trace Urine Glucose (UA) Negative Urine Ketones 80 Urine Blood Negative Urine Nitrite Negative Ur Leukocyte Esterase Negative Urine Opiates Screen Not Detected Ur Buprenorphine Scrn Not Detected Ur Oxycodone Screen Not Detected Urine Methadone Screen Not Detected Urine Fentanyl Screen Not Detected Ur Barbiturates Screen Not Detected Ur Phencyclidine Scrn Not Detected Ur Amphetamines Screen Not Detected U Benzodiazepines Scrn POSITIVE H Urine Cocaine Screen Not Detected U Marijuana (THC) Screen Not Detected 12/15/24 17:26 MCV 92.6 MCH 32.1 MCHC 34.7 RDW 12.3 Plt Count 178 D MPV 10.7 Immature Gran % (Auto) 0.4 Neut % (Auto) 77.9 H Lymph % (Auto) 15.2 L [place] % (Auto) 6.2 Eos % (Auto) 0.1 Baso % (Auto) 0.2 Lymph # (Auto) 2.1 [place] # (Auto) 0.8 Eos # (Auto) 0.0 Baso # (Auto) 0.0 Abs Immat Gran (auto) 0.06 H Absolute Neuts (auto) 10.5 H Absolute Nucleated RBC 0.000 Nucleated RBC % (auto) 0.0 Anion Gap 9 L Estim Creat Clear Calc 146.9 Estimated GFR > 60 Random Glucose 166 H Calcium 8.4 D Total Bilirubin 1.0 AST 32 ALT 22 Alkaline Phosphatase 66 Total Creatine Kinase C-Reactive Protein 3.76 H Total Protein 6.0 L Albumin 3.7 TSH Urine Color Urine Appearance Urine pH Ur Specific [place] Urine Protein Urine Glucose (UA) Urine Ketones Urine Blood Urine Nitrite Ur Leukocyte Esterase Urine Opiates Screen Ur Buprenorphine Scrn Ur Oxycodone Screen Urine Methadone Screen Urine Fentanyl Screen Ur Barbiturates Screen Ur Phencyclidine Scrn Ur Amphetamines Screen U Benzodiazepines Scrn Urine Cocaine Screen U Marijuana (THC) Screen Assessment and Plan (1) Catatonia: Status: Acute (2) Acute hypoxemic respiratory failure: Status: Acute (3) Sepsis: Status: Acute (4) Pneumonia: Status: Acute Plan 34-year-old male with history of bipolar 1 disorder who had been admitted to [facility] from [facility] due to catatonia admitted to medicine for further management of acute hypoxemic respiratory failure due to pneumonia with sepsis acute hypoxemic respiratory failure due to pneumonia with sepsis Leukocytosis 13.5, tachycardic, tachypneic, febrile to 102.3 CTA chest showed bilateral opacities right greater than left suggestive of atelectasis versus pneumonia (12/14). Repeat x-ray pending Given recent hospitalization, IV vancomycin and Zosyn ordered (initiated 12/15) MRSA nasal swab and sputum culture pending NPO diet Aspiration precautions NC Tylenol Follow CBC, cultures Bipolar 1 disorder with catatonia Hold quetiapine, lamotrigine, propranolol, olanzapine given aspiration risk Psychiatry following. Monitoring for malignant catatonia Continue lorazepam 3 mg q.4h IV per Psychiatry Elevated CPK Likely related to dehydration, not rhabdomyolysis DVT prophylaxis-Lovenox Full code Patient requires inpatient stay at least 2 midnights for management of acute hypoxemic respiratory failure due to pneumonia and sepsis which will require IV antibiotics, supplemental O2, and close monitoring of hemodynamics to prevent decompensation Quality Stroke Does the patient have a stroke diagnosis?: No VTE Prior VTE?: No VTE Risk Level:: Medical - moderate - high VTE Device Contraindication: Treatment Not Indicated VTE Drug Contraindication: N/A - Med Ordered
[2024-12-15 19:49] LABS: Lactic Acid 1.3 mmol/L (0.5-2.0)
[2024-12-15] MEDS: Acetaminophen Supp 650 MG SUPP.RECT PR (19:56)
[2024-12-15 20:06] LABS: Lactic Acid 1.3 mmol/L (0.5-2.0)
--- NOTE | 2024-12-15 20:44 | MHC.CARE ---
T/w called [facility] to let them know pt. will not be returning as he is being medically admitted.
[2024-12-15] MEDS: Piperacillin Sodium/Tazobactam 4.5 GM in 0.9 % Sodium Chloride 100 ML IV (20:48)
[2024-12-15] MEDS: Enoxaparin Sodium 40 MG/0.4 ML SYRINGE SUBCUT (20:49)
[2024-12-15] MEDS: vancomycin/NS 2,000 MG/500 ML PLAST..BAG 250 MG IV (21:23)
[2024-12-15] MEDS: Acetaminophen 1,000 MG/100 ML PIGGYBACK 400 MG IV (21:34)
--- NOTE | 2024-12-15 21:47 | PHA.PROG ---
Admission Date/Time: December 15, 2024 19:37 Indication: respiratory Weight in k.79 kg Adjusted body weight in Kg: [place] body weight in Kg: Obesity Dosing Indication % IBW: Serum Creatinine - Last 168 Hours 12/14/24 12/15/24 17:12 17:26 Creatinine 1.24 0.85 Estimated CrCl and GFR - Last 168 Hours 12/14/24 12/15/24 17:12 17:26 Estim Creat Clear Calc 100.7 146.9 Estimated GFR > 60 > 60 Vancomycin Loading Dose: 2000mg x 1 Current Vancomycin Dosing Regimen: 1500mg Q12H Vancomycin Monitoring using AUC goal of 400 - 600 range with trough as surrogate marker: 552 mg/L Date and Time for next Vancomycin Level to be drawn: 12/17@0700 Pharmacist Comments on Vancomycin Plan: predicted trough of 16.9 mg/L; will monitor and adjust as needed Vancomycin dosing will take advantage of [employer] as a clinical decision support tool that uses Bayesian modeling to calculate individual patient's pharmacokinetic parameters and forecast the patient's drug concentration time course with the target goal AUC 24 range of 400 - 600 mg/L/hr.
--- NOTE | 2024-12-15 23:02 | PC.NURSE ---
pt noted to be choking in sleep, pts head of the bed already elevated, sucioned pt, called respiatory for MD nolberto aware, no new ordrs at this time
[2024-12-16] VITALS (11 sets, daily range): BP systolic 135–167; BP diastolic 94–111; PULSE 78–97; RESP 17–31; TEMP 36.8–37.4; O2SAT 97–99
[2024-12-16] MEDS: LORazepam 2 MG/ML VIAL 3 MG IVPUSH ×3 (00:10→07:53)
[2024-12-16] MEDS: Piperacillin Sodium/Tazobactam 4.5 GM in 0.9 % Sodium Chloride 100 ML IV ×4 (02:29→21:56)
--- NOTE | 2024-12-16 04:00 | PC.NURSE ---
pts bp noted to be 158/111 on right arm, rechecked bp using left arm 167/101, MD Cheek aware. no new orders at this time.
[2024-12-16 05:50] LABS: MANUAL DIFF FLAG NO
[2024-12-16 05:52] LABS: Basophils Percent Auto 0.3 % (0-2); Eosinophils Percent Auto 0.1 % (0-4); Hematocrit 39.6 % (42.0-52.0); Hemoglobin 14.5 g/dl (14.0-18.0); Imm Gran Abs Auto 0.04 X10*3/uL (0.00-0.03); Imm Gran Pct Auto 0.4 % (0.0-0.4); Lymphocytes Absolute Auto 1.5 X10*3/uL (1.2-4.9); Mean Corpuscular HGB Conc 36.6 g/dl (31.0-36.0); Mean Corpuscular Hemoglobin 33.3 pg (27.0-33.0); Mean Corpuscular Volume 90.8 fL (80.0-98.0); Mean Platelet Volume 11.3 fL (9.4-12.4); Monocytes Absolute Auto 0.8 X10*3/uL (0.1-1.2); Monocytes Percent Auto 6.9 % (2-11); Neutrophils Percent Auto 79.3 % (45-73); Platelet Count 176 X10*3/uL (160-400); Red Blood Count 4.36 X10*6/uL (4.60-5.80); Red Cell Distribution Width 12.3 % (11.0-16.0); White Blood Count 11.3 X10*3/uL (4.8-10.8)
[2024-12-16 06:18] LABS: Anion Gap 13 (12-20); Blood Urea Nitrogen 8 mg/dL (9-16); Calcium 8.5 mg/dL (8.4-10.2); Carbon Dioxide 23 mmol/L (22-29); Chloride 109 mmol/L (96-108); Creatinine Clr Calc Pharmacy 168.7; Estimated Glomerular Filt Rate > 60; Glucose Random 135 mg/dL (60-115); Potassium 3.7 mmol/L (3.3-5.1); Sodium 141 mmol/L (135-145)
--- NOTE | 2024-12-16 08:32 | PM.PSYCN ---
History of Present Illness Date of Service: 12/16/2024 Chief Complaint: pneumonia, hypoxia, sepsis Discussed with referring provider: Yes Sources of Information: patient interviewed, chart reviewed and crisis/core team assessment reviewed HPI Narrative: Interim Hx: pt received 3mg q4h IV ativan. he had fever last night 101-102. He was medically admitted. Pt appeared more lethagic in the ED. No benefit from ativan. mentation continues to be impaired and now more sedated. Neurology consult ordered. Pt seen by neurology, recommended LP, MRI. Past Psychiatric History: Inpt: [facility] 6 years ago. Past medication trials: olanzapine, ativan 2mg/daily ON LICENSE OF [facility] Medical History Bipolar I disorder with catatonia Diagnostics Vital Signs (24Hr): Vital Signs - 24 hr 12/15/24 09:28 12/15/24 12:08 12/15/24 15:18 Temperature 99.4 F 99 F Pulse Rate 104 H 103 H 99 Respiratory Rate 30 H 30 H 32 H Blood Pressure 127/74 139/105 H 159/109 H Pulse Oximetry 93 91 L 92 Oxygen Delivery Method Nasal Cannula Nasal Cannula Room Air Oxygen Flow Rate 2 2 12/15/24 17:26 12/15/24 17:27 12/15/24 18:52 Temperature Pulse Rate 94 106 H Respiratory Rate 36 H 18 Blood Pressure 152/98 H Pulse Oximetry 88 L 93 Oxygen Delivery Method Room Air Nasal Cannula Oxygen Flow Rate 2 12/15/24 19:47 12/15/24 21:17 12/15/24 22:27 Temperature 102.2 F H 101.7 F H 100.7 F H Pulse Rate 98 104 H 100 Respiratory Rate 25 H 22 H 27 H Blood Pressure 158/93 H 123/85 Pulse Oximetry 95 95 Oxygen Delivery Method Nasal Cannula Nasal Cannula Oxygen Flow Rate 2 2 12/15/24 23:35 12/16/24 01:52 12/16/24 03:58 Temperature 99.0 F 99.1 F 99.1 F Pulse Rate 103 H 88 85 Respiratory Rate 27 H 31 H 24 H Blood Pressure 121/58 L 138/95 H 158/111 H Pulse Oximetry 93 98 98 Oxygen Delivery Method Simple Mask Simple Mask Simple Mask Oxygen Flow Rate 5 5 5 12/16/24 03:59 12/16/24 05:59 12/16/24 08:05 Temperature 99.1 F 98.8 F 99.3 F Pulse Rate 78 82 82 Respiratory Rate 23 H 29 H 24 H Blood Pressure 167/101 H 146/98 H 153/99 H Pulse Oximetry 98 98 97 Oxygen Delivery Method Simple Mask Simple Mask Room Air Oxygen Flow Rate 5 5 BMI result Body Mass Index 29.8 Labs 12/16/24 04:47 12/16/24 04:47 Labs: Laboratory Results - last 48 hr 12/14/24 12/14/24 12/14/24 17:09 17:10 17:11 WBC RBC Hgb Hct MCV MCH MCHC RDW Plt Count MPV Immature Gran % (Auto) Neut % (Auto) Lymph % (Auto) [place] % (Auto) Eos % (Auto) Baso % (Auto) Lymph # (Auto) [place] # (Auto) Eos # (Auto) Baso # (Auto) Abs Immat Gran (auto) Absolute Neuts (auto) Absolute Nucleated RBC Nucleated RBC % (auto) Hold Purple Top PT 13.0 H INR 1.1 D-Dimer High Sensitivty < 150 VBG pH VBG pCO2 VBG pO2 VBG HCO3 VBG O2 Saturation VBG Base Excess Sodium Potassium Chloride Carbon Dioxide Anion Gap BUN Creatinine Estim Creat Clear Calc Estimated GFR Random Glucose Osmolality 303 Lactic Acid Calcium Magnesium Total Bilirubin Direct Bilirubin AST ALT Alkaline Phosphatase Ammonia Total Creatine Kinase Troponin I High Sens 28.6 C-Reactive Protein B-Natriuretic Peptide Total Protein Albumin Lipase TSH Hold Green Top See Note Urine Color Urine Appearance Urine pH Ur Specific [place] Urine Protein Urine Glucose (UA) Urine Ketones Urine Blood Urine Nitrite Ur Leukocyte Esterase Salicylates < 5.0 L Urine Opiates Screen Ur Buprenorphine Scrn Ur Oxycodone Screen Urine Methadone Screen Urine Fentanyl Screen Acetaminophen < 3 Ur Barbiturates Screen Ur Phencyclidine Scrn Ur Amphetamines Screen U Benzodiazepines Scrn Urine Cocaine Screen U Marijuana (THC) Screen Ethyl Alcohol Influenza Type A (PCR) NEGATIVE Influenza Type B (PCR) NEGATIVE RSV RNA Qual (PCR) NEGATIVE SARS-CoV-2 RNA (RT-PCR) NEGATIVE 12/14/24 12/14/24 12/14/24 17:12 17:16 17:19 WBC 16.9 H RBC 5.52 Hgb 18.2 H Hct 49.3 MCV 89.3 MCH 33.0 MCHC 36.9 H RDW 12.1 Plt Count 256 MPV 10.7 Immature Gran % (Auto) 0.4 Neut % (Auto) 81.6 H Lymph % (Auto) 12.1 L [place] % (Auto) 5.6 Eos % (Auto) 0.1 Baso % (Auto) 0.2 Lymph # (Auto) 2.1 [place] # (Auto) 0.9 Eos # (Auto) 0.0 Baso # (Auto) 0.0 Abs Immat Gran (auto) 0.06 H Absolute Neuts (auto) 13.8 H Absolute Nucleated RBC 0.000 Nucleated RBC % (auto) 0.0 Hold Purple Top SEE NOTE PT INR D-Dimer High Sensitivty VBG pH 7.38 VBG pCO2 31 VBG pO2 81 VBG HCO3 19 L VBG O2 Saturation 96.0 VBG Base Excess -4.5 Sodium 144 Potassium 4.6 Chloride 109 H Carbon Dioxide 20 L Anion Gap 20 BUN 25 H Creatinine 1.24 Estim Creat Clear Calc 100.7 Estimated GFR > 60 Random Glucose 113 Osmolality Lactic Acid 1.0 Calcium 9.7 Magnesium 2.5 Total Bilirubin 1.0 Direct Bilirubin 0.4 AST 41 H ALT 36 Alkaline Phosphatase 85 Ammonia 49 Total Creatine Kinase 518 H Troponin I High Sens C-Reactive Protein 1.48 H B-Natriuretic Peptide < 10 Total Protein 7.9 Albumin 4.8 Lipase 13 TSH 0.66 Hold Green Top Urine Color Urine Appearance Urine pH Ur Specific [place] Urine Protein Urine Glucose (UA) Urine Ketones Urine Blood Urine Nitrite Ur Leukocyte Esterase Salicylates Urine Opiates Screen Ur Buprenorphine Scrn Ur Oxycodone Screen Urine Methadone Screen Urine Fentanyl Screen Acetaminophen Ur Barbiturates Screen Ur Phencyclidine Scrn Ur Amphetamines Screen U Benzodiazepines Scrn Urine Cocaine Screen U Marijuana (THC) Screen Ethyl Alcohol < 10 Influenza Type A (PCR) Influenza Type B (PCR) RSV RNA Qual (PCR) SARS-CoV-2 RNA (RT-PCR) 12/14/24 12/14/24 12/15/24 20:36 22:26 17:26 WBC 13.5 H RBC 4.61 Hgb 14.8 Hct 42.7 MCV 92.6 MCH 32.1 MCHC 34.7 RDW 12.3 Plt Count 178 D MPV 10.7 Immature Gran % (Auto) 0.4 Neut % (Auto) 77.9 H Lymph % (Auto) 15.2 L [place] % (Auto) 6.2 Eos % (Auto) 0.1 Baso % (Auto) 0.2 Lymph # (Auto) 2.1 [place] # (Auto) 0.8 Eos # (Auto) 0.0 Baso # (Auto) 0.0 Abs Immat Gran (auto) 0.06 H Absolute Neuts (auto) 10.5 H Absolute Nucleated RBC 0.000 Nucleated RBC % (auto) 0.0 Hold Purple Top PT INR D-Dimer High Sensitivty VBG pH VBG pCO2 VBG pO2 VBG HCO3 VBG O2 Saturation VBG Base Excess Sodium 141 Potassium 3.4 D Chloride 108 Carbon Dioxide 27 Anion Gap 9 L BUN 13 Creatinine 0.85 Estim Creat Clear Calc 146.9 Estimated GFR > 60 Random Glucose 166 H Osmolality Lactic Acid Calcium 8.4 D Magnesium Total Bilirubin 1.0 Direct Bilirubin AST 32 ALT 22 Alkaline Phosphatase 66 Ammonia Total Creatine Kinase 416 H Troponin I High Sens 13.5 D C-Reactive Protein 3.76 H B-Natriuretic Peptide Total Protein 6.0 L Albumin 3.7 Lipase TSH Hold Green Top Urine Color Yellow Urine Appearance Clear Urine pH 6.0 Ur Specific [place] >= 1.030 H Urine Protein Trace Urine Glucose (UA) Negative Urine Ketones 80 Urine Blood Negative Urine Nitrite Negative Ur Leukocyte Esterase Negative Salicylates Urine Opiates Screen Not Detected Ur Buprenorphine Scrn Not Detected Ur Oxycodone Screen Not Detected Urine Methadone Screen Not Detected Urine Fentanyl Screen Not Detected Acetaminophen Ur Barbiturates Screen Not Detected Ur Phencyclidine Scrn Not Detected Ur Amphetamines Screen Not Detected U Benzodiazepines Scrn POSITIVE H Urine Cocaine Screen Not Detected U Marijuana (THC) Screen Not Detected Ethyl Alcohol Influenza Type A (PCR) Influenza Type B (PCR) RSV RNA Qual (PCR) SARS-CoV-2 RNA (RT-PCR) 12/15/24 12/15/24 12/16/24 19:29 19:47 04:47 WBC 11.3 H RBC 4.36 L Hgb 14.5 Hct 39.6 L MCV 90.8 MCH 33.3 H MCHC 36.6 H RDW 12.3 Plt Count 176 MPV 11.3 Immature Gran % (Auto) 0.4 Neut % (Auto) 79.3 H Lymph % (Auto) 13.0 L [place] % (Auto) 6.9 Eos % (Auto) 0.1 Baso % (Auto) 0.3 Lymph # (Auto) 1.5 [place] # (Auto) 0.8 Eos # (Auto) 0.0 Baso # (Auto) 0.0 Abs Immat Gran (auto) 0.04 H Absolute Neuts (auto) 9.0 H Absolute Nucleated RBC 0.000 Nucleated RBC % (auto) 0.0 Hold Purple Top PT INR D-Dimer High Sensitivty VBG pH VBG pCO2 VBG pO2 VBG HCO3 VBG O2 Saturation VBG Base Excess Sodium 141 Potassium 3.7 Chloride 109 H Carbon Dioxide 23 Anion Gap 13 BUN 8 L Creatinine 0.74 Estim Creat Clear Calc 168.7 Estimated GFR > 60 Random Glucose 135 H Osmolality Lactic Acid 1.3 1.3 Calcium 8.5 Magnesium Total Bilirubin Direct Bilirubin AST ALT Alkaline Phosphatase Ammonia Total Creatine Kinase Troponin I High Sens C-Reactive Protein B-Natriuretic Peptide Total Protein Albumin Lipase TSH Hold Green Top Urine Color Urine Appearance Urine pH Ur Specific [place] Urine Protein Urine Glucose (UA) Urine Ketones Urine Blood Urine Nitrite Ur Leukocyte Esterase Salicylates Urine Opiates Screen Ur Buprenorphine Scrn Ur Oxycodone Screen Urine Methadone Screen Urine Fentanyl Screen Acetaminophen Ur Barbiturates Screen Ur Phencyclidine Scrn Ur Amphetamines Screen U Benzodiazepines Scrn Urine Cocaine Screen U Marijuana (THC) Screen Ethyl Alcohol Influenza Type A (PCR) Influenza Type B (PCR) RSV RNA Qual (PCR) SARS-CoV-2 RNA (RT-PCR) Medications Medications Current Medications Acetaminophen (Acetaminophen Supp 650 Mg Supp.Rect) 650 mg DC Q6H PRN PRN Reason: Pain, Mild 1-3,fever,headache Last Admin: 12/15/24 19:56 Dose: 650 mg Enoxaparin Sodium (Enoxaparin Sodium 40 Mg/0.4 Ml Syringe) 40 mg SUBCUT Q24H [facility] Last Admin: 12/15/24 20:49 Dose: 40 mg Piperacillin Sod/Tazobactam (Sod 4.5 gm/ Sodium Chloride) 100 mls @ 200 mls/hr IV Q6H [facility] Last Admin: 12/16/24 07:53 Dose: 200 mls/hr Vancomycin HCl 1,500 mg/ (Sodium Chloride) 500 mls @ 333.333 mls/hr IV Q12H [facility] Lorazepam (Lorazepam 2 Mg/Ml Vial) 3 mg IVPUSH Q4H [facility] Last Admin: 12/16/24 07:53 Dose: 3 mg Nicotine (Nicotine 21 Mg Patch.Td24) 21 mg TRANSDERMA DAILY VLADIMIR Ondansetron HCl (Ondansetron Hcl 4 Mg/2 Ml Vial) 4 mg IVPUSH Q8H PRN PRN Reason: Nausea and Vomiting Pharmacy Consult (Consult Rx Vancomycin Dosing) 1 each MISCELLANE DAILY PRN PRN Reason: Consult order Allergies Allergies Allergy/AdvReac Type Severity Reaction Status Date / Time sertraline [From Zoloft] Allergy Unknown Verified 12/14/24 16:10 Assessment & Plan Assessment & Plan (1) Bipolar I disorder with catatonia: Status: Acute Code(s): F31.9 - Bipolar disorder, unspecified; F06.1 - Catatonic disorder due to known physiological condition Plan Mr. Ledesma is a 34 year-old male who was admitted to [facility] due to s/s of catatonia and psychosis. He was transferred to [facility] ED as pt increasingly more mute, not eating, not responding to benzodiazepine tx. In the ED, pt with leukocytosis, BUN elevation and Cr elevation most likely related to dehydration.Tachypnea. Mild elevation of CK 400. CTA did not show PE, bilat opacities lungs more on right than left side. He had temp of 100.1 but not further than that. He continues to present with s/s of catatonia including mutism, negativism, and waxy flexibility. Limited response to benzodiazepine thus far. Given VS abnormalities noted (tachypnea, htn, elevation in temp but not febrile)- monitor worsening of VS which may suggest a malignant catatonia versus catatonia. PLAN 12/16- no therapeutic benefit from ativan, pt febrile last night, sedated this morning, ordered neurology consult- recommended LP, MRI. will stop ativan IV for now, psych continue to follow along with multidisciplinary team. informed of changes and at bedside. Total time managing care of this patient today ____ minutes.
[2024-12-16] MEDS: Nicotine 21 MG PATCH.TD24 TRANSDERMA (09:37)
--- NOTE | 2024-12-16 09:42 | P.PNIM_ITS ---
Subjective Subjective Date of Service: 12/16/24 Review of Systems Review of Systems: Yes Unobtainable due to mental status Physical Exam 2 Vital Signs: Vital Signs: Last Vital Signs Temp 99.3 F 12/16/24 08:05 Pulse 82 12/16/24 08:05 Resp 24 H 12/16/24 08:05 BP 153/99 H 12/16/24 08:05 Pulse Ox 97 12/16/24 08:05 O2 Del Method Room Air 12/16/24 08:05 O2 Flow Rate 5 12/16/24 05:59 BMI result Body Mass Index 29.8 Alert and tracking but non verbal, not particularly rigid Objective Data Active Medications Acetaminophen (Acetaminophen Supp 650 Mg Supp.Rect) 650 mg MD Q6H PRN PRN Reason: Pain, Mild 1-3,fever,headache Last Admin: 12/15/24 19:56 Dose: 650 mg Documented By: CARLEE Enoxaparin Sodium (Enoxaparin Sodium 40 Mg/0.4 Ml Syringe) 40 mg SUBCUT Q24H [facility] Last Admin: 12/15/24 20:49 Dose: 40 mg Documented By: CARLEE Piperacillin Sod/Tazobactam (Sod 4.5 gm/ Sodium Chloride) 100 mls @ 200 mls/hr IV Q6H [facility] Last Infusion: 12/16/24 09:18 Dose: Infused Documented By: RICH Vancomycin HCl 1,500 mg/ (Sodium Chloride) 500 mls @ 333.333 mls/hr IV Q12H [facility] Last Admin: 12/16/24 09:38 Dose: 333.33 mls/hr Documented By: RICH Lorazepam (Lorazepam 2 Mg/Ml Vial) 2 mg IVPUSH Q4H [facility] Last Admin: 12/16/24 09:27 Dose: Not Given Documented By: RICH Non-Admin Reason: Previously Administered Comments: MD Parmar med clarification made. aware 3mg dosing gave at 8am. orders to not give this dose and continue order at next dose noon. Nicotine (Nicotine 21 Mg Patch.Td24) 21 mg TRANSDERMA DAILY [facility] Last Admin: 12/16/24 09:37 Dose: 21 mg Documented By: RICH Ondansetron HCl (Ondansetron Hcl 4 Mg/2 Ml Vial) 4 mg IVPUSH Q8H PRN PRN Reason: Nausea and Vomiting Pharmacy Consult (Consult Rx Vancomycin Dosing) 1 each MISCELLANE DAILY PRN PRN Reason: Consult order Labs 12/16/24 04:47 12/16/24 04:47 Labs: Laboratory Results - last 24 hr 12/15/24 12/15/24 12/15/24 17:26 19:29 19:47 MCV 92.6 MCH 32.1 MCHC 34.7 RDW 12.3 Plt Count 178 D MPV 10.7 Immature Gran % (Auto) 0.4 Neut % (Auto) 77.9 H Lymph % (Auto) 15.2 L Dougherty % (Auto) 6.2 Eos % (Auto) 0.1 Baso % (Auto) 0.2 Lymph # (Auto) 2.1 Dougherty # (Auto) 0.8 Eos # (Auto) 0.0 Baso # (Auto) 0.0 Abs Immat Gran (auto) 0.06 H Absolute Neuts (auto) 10.5 H Absolute Nucleated RBC 0.000 Nucleated RBC % (auto) 0.0 Anion Gap 9 L Estim Creat Clear Calc 146.9 Estimated GFR > 60 Random Glucose 166 H Lactic Acid 1.3 1.3 Calcium 8.4 D Total Bilirubin 1.0 AST 32 ALT 22 Alkaline Phosphatase 66 C-Reactive Protein 3.76 H Total Protein 6.0 L Albumin 3.7 12/16/24 04:47 MCV 90.8 MCH 33.3 H MCHC 36.6 H RDW 12.3 Plt Count 176 MPV 11.3 Immature Gran % (Auto) 0.4 Neut % (Auto) 79.3 H Lymph % (Auto) 13.0 L Dougherty % (Auto) 6.9 Eos % (Auto) 0.1 Baso % (Auto) 0.3 Lymph # (Auto) 1.5 Dougherty # (Auto) 0.8 Eos # (Auto) 0.0 Baso # (Auto) 0.0 Abs Immat Gran (auto) 0.04 H Absolute Neuts (auto) 9.0 H Absolute Nucleated RBC 0.000 Nucleated RBC % (auto) 0.0 Anion Gap 13 Estim Creat Clear Calc 168.7 Estimated GFR > 60 Random Glucose 135 H Lactic Acid Calcium 8.5 Total Bilirubin AST ALT Alkaline Phosphatase C-Reactive Protein Total Protein Albumin Microbiology Microbiology Results: Microbiology 12/14/24 17:11 Blood Culture - Preliminary Blood - Venous No growth after 24 hours. 12/14/24 17:12 Blood Culture - Preliminary Blood - Venous No growth after 24 hours. Assessment and Plan (1) Catatonia: Status: Acute Plan 34M PMH bipolar 1 sent for Julita Hdz for catatonia and acute hypoxia Sepsis and acute hypoxic respiratory failure secondary to aspiration pneumonia with risk for MRSA given recent hospitalization Continue vanco and Zosyn, follow up MRSA swab and can discontinue vancomycin if negative NPO Wean O2 as tolerated Bipolar 1 with catatonia versus malignant catatonia No significant improvement with Ativan, holding antipsychotics, Psychiatry following DVT prophylaxis with Lovenox Full Code reason for continued hospitalization: Awaiting defervescence, still treating catatonia Quality Stroke Does the patient have a stroke diagnosis?: No VTE Prior VTE?: No VTE Risk Level:: Medical - moderate - high VTE Device Contraindication: Treatment Not Indicated VTE Drug Contraindication: N/A - Med Ordered
[2024-12-16 10:50] LABS: MRSA Nasal PCR NEGATIVE (Negative); SA Nasal PCR NEGATIVE (Negative)
--- NOTE | 2024-12-16 11:30 | PM.NEUROCN ---
History of Present Illness Data of Consult Service Date: 12/16/24 Primary Care Provider: Unknown Physician HPI Reason for consult: Change in mental status 34 years old man I was asked to see for catatonia and change in mental status. He was unable to provide any history and history was taken from the notes suffered from revealed disorder condition of medicines including lamotrigine and probably also some antipsychotic drugs. During loss we could to he has not been well and it was suggested that maybe he was not taking his medicines on regular basis. At 1 point he was brought to a local hospital where was found to be with acute behavioral symptoms and lethargic with also some autonomic signs. With suggestion of catatonia he was transferred to a psychiatric facility from where he was transferred here. In emergency room he has been given relatively larger dose of benzodiazepine. When I saw him he has received this medicine. He was noted to be febrile with some elevation of white cell count. There was no obvious source of infection other than possibility of some infection in the lung. Review of Systems Review of Systems: Could not be done with him PMFSH Past Medical History Medical History (Updated 12/16/24 @ 11:34 by Mayte May MD) Bipolar I disorder with catatonia Social History Social History Unable to assess alcohol history related to: Unable to respond and Refusing to respond Patient Tobacco Use Status: Tobacco use Unknown Use of substances other than those prescribed or required for medical reasons: Refusing to respond Advance Directives: No Advance Directives Information Provided: Yes Do you have a plan to hurt others: No Plan Nutrition Risks: On aspiration precautions Meds Allergies Allergy/AdvReac Type Severity Reaction Status Date / Time sertraline [From Zoloft] Allergy Unknown Verified 12/14/24 16:10 Active Medications: Current Medications Acetaminophen (Acetaminophen Supp 650 Mg Supp.Rect) 650 mg [place] Q6H PRN PRN Reason: Pain, Mild 1-3,fever,headache Last Admin: 12/15/24 19:56 Dose: 650 mg Enoxaparin Sodium (Enoxaparin Sodium 40 Mg/0.4 Ml Syringe) 40 mg SUBCUT Q24H [facility] Last Admin: 12/15/24 20:49 Dose: 40 mg Flumazenil (Flumazenil 0.5 Mg/5 Ml Vial) 0.2 mg IV ONCE ONE Stop: 12/16/24 11:31 Piperacillin Sod/Tazobactam (Sod 4.5 gm/ Sodium Chloride) 100 mls @ 200 mls/hr IV Q6H [facility] Last Infusion: 12/16/24 09:18 Dose: Infused Acyclovir Sodium 850 mg/ (Sodium Chloride) 267 mls @ 267 mls/hr IV Q8H [facility] Lorazepam (Lorazepam 2 Mg/Ml Vial) 2 mg IVPUSH Q4H [facility] Last Admin: 12/16/24 09:27 Dose: Not Given Nicotine (Nicotine 21 Mg Patch.Td24) 21 mg TRANSDERMA DAILY [facility] Last Admin: 12/16/24 09:37 Dose: 21 mg Ondansetron HCl (Ondansetron Hcl 4 Mg/2 Ml Vial) 4 mg IVPUSH Q8H PRN PRN Reason: Nausea and Vomiting Home Medications ?Medication ?Instructions ?Recorded ?Confirmed ?Last Taken ?Type ibuprofen 600 mg tablet 600 mg PO TID PRN Pain 12/15/24 12/15/24 Unknown History lamotrigine 25 mg tablet 50 mg PO BID 12/15/24 12/15/24 Unknown History lorazepam 0.5 mg tablet 0.5 mg PO BID 12/15/24 12/15/24 Unknown History olanzapine 15 mg tablet 30 mg PO BEDTIME 12/15/24 12/15/24 Unknown History propranolol 20 mg tablet 20 mg PO TID 12/15/24 12/15/24 Unknown History quetiapine 200 mg tablet 200 mg PO TID 12/15/24 12/15/24 Unknown History Physical Exam Vital Signs: Vital Signs: Last Vital Signs Temp 99.3 F 12/16/24 08:05 Pulse 82 12/16/24 08:05 Resp 24 H 12/16/24 08:05 BP 153/99 H 12/16/24 08:05 Pulse Ox 97 12/16/24 08:05 O2 Del Method Room Air 12/16/24 08:05 O2 Flow Rate 5 12/16/24 05:59 BMI result Body Mass Index 29.8 Neuro: Other: He was snoring and unresponsive to verbal and painful stimuli. Face seems symmetrical. Eyes were roving with round and reactive pupil. Arms and legs were hypotonic and I was easily able to move them and flex them without any sign of rigidity. Deep tendon reflexes were absent with flexor plantars. Results Labs 12/16/24 04:47 12/16/24 04:47 Labs: Short CBC 12/15/24 12/16/24 Range/Units 17:26 04:47 WBC 13.5 H 11.3 H (4.8-10.8) X10*3/uL Hgb 14.8 14.5 (14.0-18.0) g/dl Hct 42.7 39.6 L (42.0-52.0) % Plt Count 178 D 176 (160-400) X10*3/uL BMP 12/15/24 12/16/24 17:26 04:47 Sodium 141 141 Potassium 3.4 D 3.7 Chloride 108 109 H Carbon Dioxide 27 23 BUN 13 8 L Creatinine 0.85 0.74 Calcium 8.4 D 8.5 Liver Function 12/15/24 Range/Units 17:26 Total Bilirubin 1.0 (0.0-1.0) mg/dL AST 32 (5-37) U/L ALT 22 (0-40) U/L Alkaline Phosphatase 66 (39-117) U/L Albumin 3.7 (3.5-5.0) g/dL Head CT did not reveal any significant abnormality. Microbiology Microbiology Results: Microbiology 12/14/24 17:11 Blood - Venous Blood Culture - Preliminary No growth after 24 hours. 12/14/24 17:12 Blood - Venous Blood Culture - Preliminary No growth after 24 hours. Assessment and Plan (1) Altered mental status: Qualifiers: Altered mental status type: unspecified Qualified Code(s): R41.82 - Altered mental status, unspecified Status: Acute Young man with significant change in mental status resulting in lethargy drowsiness behavioral symptoms and fever. He has already received significant dose of benzodiazepine and on examination have not found skeletal signs of catatonia. My recommendation 1st is to rule out encephalitis, which could also present this way. I would noted that he has already on antibiotics or possible lung infection. I suggest covering him with a acyclovir and obtaining spinal fluid for meningoencephalitis panel and obtaining an EEG. An MRI of brain without contrast is also recommended. Procedures Date of Service Date of Service: 12/16/24
[2024-12-16] MEDS: flumazeniL 0.5 MG/5 ML VIAL 0.2 MG IV (12:27)
--- NOTE | 2024-12-16 12:27 | PC.NURSE ---
delay in IV medication d/t no IV and difficulty access. [employer] to come place USG IV.
[2024-12-16] MEDS: Acetaminophen Supp 650 MG SUPP.RECT PR (12:29)
[2024-12-16] MEDS: Acyclovir Sodium 850 MG in 0.9 % Sodium Chloride 250 ML 267 MG IV ×2 (12:40→21:25)
--- NOTE | 2024-12-16 13:46 | MHC.CM.PN ---
PT FROM [facility] WHERE HE WILL RETURN [facility] DCD
--- NOTE | 2024-12-16 15:49 | PC.NURSE ---
pt taken for LP procedure.
[2024-12-16 16:25] LABS: CSF Appearance Clear, Colorless; CSF Tube # 1
[2024-12-16 16:47] LABS: Total Protein CSF 29.3 mg/dL (15-45)
[2024-12-16 18:02] LABS: Cryptococcus neoformans/gattii Not Detected (Not Detect.); Enterovirus Not Detected (Not Detect.); Escherichia coli K1 Not Detected (Not Detect.); Haemophilus influenzae Not Detected (Not Detect.); Herpes simplex virus 1 Not Detected (Not Detect.); Herpes simplex virus 2 Not Detected (Not Detect.); Human herpesvirus 6 Not Detected (Not Detect.); Human parechovirus Not Detected (Not Detect.); Listeria monocytogenes Not Detected (Not Detect.); Neisseria meningitidis Not Detected (Not Detect.); Streptococcus agalactiae Not Detected (Not Detect.); Streptococcus pneumoniae Not Detected (Not Detect.); Varicella zoster virus Not Detected (Not Detect.)
[2024-12-16 18:31] LABS: Appearance CSF HAZY; CSF Tube # 4; Color CSF PINK
[2024-12-16 18:32] LABS: CSF Monos 2 %; Lymphocytes CSF 30 %; Neutrophils CSF 68 %; Red Blood Cell CSF 2962 MM*3
[2024-12-16 18:38] LABS: White Blood Cell CSF 11 MM*3
[2024-12-17] VITALS (10 sets, daily range): BP systolic 132–166; BP diastolic 78–103; PULSE 82–100; RESP 17–20; TEMP 36.4–37.9; O2SAT 95–98
[2024-12-17] MEDS: Acyclovir Sodium 850 MG in 0.9 % Sodium Chloride 250 ML 267 MG IV ×3 (04:11→20:41)
[2024-12-17] MEDS: Piperacillin Sodium/Tazobactam 4.5 GM in 0.9 % Sodium Chloride 100 ML IV ×4 (05:32→22:30)
[2024-12-17 05:48] LABS: Glucose, Whole Blood 83 mg/dL (60-115)
[2024-12-17 07:47] LABS: Hematocrit 42.6 % (42.0-52.0); Hemoglobin 15.5 g/dl (14.0-18.0); Mean Corpuscular HGB Conc 36.4 g/dl (31.0-36.0); Mean Corpuscular Hemoglobin 32.8 pg (27.0-33.0); Mean Corpuscular Volume 90.3 fL (80.0-98.0); Mean Platelet Volume 11.7 fL (9.4-12.4); Platelet Count 173 X10*3/uL (160-400); Red Blood Count 4.72 X10*6/uL (4.60-5.80); Red Cell Distribution Width 11.9 % (11.0-16.0); White Blood Count 8.6 X10*3/uL (4.8-10.8)
[2024-12-17] MEDS: Nicotine 21 MG PATCH.TD24 TRANSDERMA (07:51)
[2024-12-17] MEDS: Acetaminophen Supp 650 MG SUPP.RECT PR ×2 (07:51→20:49)
[2024-12-17 07:56] LABS: Anion Gap 13 (12-20); Blood Urea Nitrogen 6 mg/dL (9-16); Calcium 8.8 mg/dL (8.4-10.2); Carbon Dioxide 23 mmol/L (22-29); Chloride 109 mmol/L (96-108); Creatinine Clr Calc Pharmacy 166.5; Estimated Glomerular Filt Rate > 60; Glucose Random 83 mg/dL (60-115); Potassium 3.7 mmol/L (3.3-5.1); Sodium 141 mmol/L (135-145)
--- NOTE | 2024-12-17 11:49 | MHC.CM.PN ---
EMR reviewed and per MD rounds, pt is not medically cleared for discharge at this time.
--- NOTE | 2024-12-17 14:27 | HO.PM.IMPN ---
Subjective Subjective Date of Service: 12/17/24 Interval History: Seen and evaluated this morning still altered, open eyes and make eye contact but non-verbal no fever reported pending EEG no other events Review of Systems Review of Systems: Yes all other systems are reviewed and are negative Physical Exam Vital Signs: Vital Signs: Last Vital Signs Temp 99.2 F 12/17/24 12:04 Pulse 100 12/17/24 12:04 Resp 20 12/17/24 12:04 BP 132/91 H 12/17/24 12:04 Pulse Ox 96 12/17/24 12:04 O2 Del Method Nasal Cannula 12/17/24 12:04 O2 Flow Rate 2 12/17/24 12:04 BMI result Body Mass Index 29.8 Const: Other: Constitutional : alert with stimulation but non verbal on intercative, not in distress Cardiovascular : no JVP, no lower extremity edema Respiratory : bilateral chest movement, not in resp distress Gastrointestinal: soft, lax, Non tender Skin : Warm, Dry Neurological : Alert & non-responsive verbally, not following commands , No focal deficit Objective Data Active Medications Acetaminophen (Acetaminophen Supp 650 Mg Supp.Rect) 650 mg [place] Q6H PRN PRN Reason: Pain, Mild 1-3,fever,headache Last Admin: 12/17/24 07:51 Dose: 650 mg Documented By: VICTOR HUGO Enoxaparin Sodium (Enoxaparin Sodium 40 Mg/0.4 Ml Syringe) 40 mg SUBCUT Q24H [facility] Last Admin: 12/15/24 20:49 Dose: 40 mg Documented By: CARLEE Acyclovir Sodium 850 mg/ (Sodium Chloride) 267 mls @ 267 mls/hr IV Q8H [facility] Last Infusion: 12/17/24 11:27 Dose: Infused Documented By: VICTOR HUGO Piperacillin Sod/Tazobactam (Sod 4.5 gm/ Sodium Chloride) 100 mls @ 200 mls/hr IV Q6H [facility] Last Infusion: 12/17/24 08:36 Dose: Infused Documented By: VICTOR HUGO Nicotine (Nicotine 21 Mg Patch.Td24) 21 mg TRANSDERMA DAILY [facility] Last Admin: 12/17/24 07:51 Dose: 21 mg Documented By: VICTOR HUGO Ondansetron HCl (Ondansetron Hcl 4 Mg/2 Ml Vial) 4 mg IVPUSH Q8H PRN PRN Reason: Nausea and Vomiting Labs 12/17/24 06:30 12/17/24 06:30 Labs: Laboratory Results - last 24 hr 12/16/24 12/16/24 12/17/24 15:44 15:44 05:44 MCV MCH MCHC RDW Plt Count MPV Absolute Nucleated RBC Nucleated RBC % (auto) Anion Gap Estim Creat Clear Calc Estimated GFR POC Glucose 83 Random Glucose Calcium CSF Tube Number 1 4 CSF Volume 3.0 CSF Appearance HAZY CSF Color PINK CSF WBC 11 H* CSF RBC 2962 CSF Neutrophils 68 CSF Lymphocytes 30 CSF Monocytes % 2 CSF Appearance (b) Clear, Colorless CSF Total Protein 29.3 CSF C.neoform/gat PCR Not Detected CSF CMV DNA (PCR) Not Detected CSF Enterovirus (PCR) Not Detected CSF E. coli K1 (PCR) Not Detected CSF H. influenzae (PCR) Not Detected CSF HSV I (PCR) Not Detected CSF HSV II (PCR) Not Detected CSF HHV 6 (PCR) Not Detected CSF L.monocytogenes PCR Not Detected CSF N. meningitidis PCR Not Detected CSF Parechovirus (PCR) Not Detected CSF S. agalactiae (PCR) Not Detected CSF S. pneumoniae (PCR) Not Detected CSF VZV (PCR) Not Detected 12/17/24 06:30 MCV 90.3 MCH 32.8 MCHC 36.4 H RDW 11.9 Plt Count 173 MPV 11.7 Absolute Nucleated RBC 0.000 Nucleated RBC % (auto) 0.0 Anion Gap 13 Estim Creat Clear Calc 166.5 Estimated GFR > 60 POC Glucose Random Glucose 83 Calcium 8.8 CSF Tube Number CSF Volume CSF Appearance CSF Color CSF WBC CSF RBC CSF Neutrophils CSF Lymphocytes CSF Monocytes % CSF Appearance (b) CSF Total Protein CSF C.neoform/gat PCR CSF CMV DNA (PCR) CSF Enterovirus (PCR) CSF E. coli K1 (PCR) CSF H. influenzae (PCR) CSF HSV I (PCR) CSF HSV II (PCR) CSF HHV 6 (PCR) CSF L.monocytogenes PCR CSF N. meningitidis PCR CSF Parechovirus (PCR) CSF S. agalactiae (PCR) CSF S. pneumoniae (PCR) CSF VZV (PCR) Microbiology Microbiology Results: Microbiology 12/16/24 15:44 Gram Stain - Final Cerebrospinal Fluid CSF Examination - Final Fluid Description - Final CSF Culture - Preliminary No growth to date. 12/15/24 19:47 Blood Culture - Preliminary Blood - Venous No growth after 24 hours. 12/15/24 19:29 Blood Culture - Preliminary Blood - Venous No growth after 24 hours. 12/14/24 17:11 Blood Culture - Preliminary Blood - Venous No growth after 48 hours. 12/14/24 17:12 Blood Culture - Preliminary Blood - Venous No growth after 48 hours. Assessment and Plan (1) Pneumonia: Status: Acute (2) Acute hypoxemic respiratory failure: Status: Acute (3) Sepsis: Status: Acute (4) Toxic metabolic encephalopathy: Status: Acute Plan 34M PMH bipolar 1 sent for Julita Hdz for catatonia and acute hypoxia Acute metabolic\Toxic encephalopathy could be related to catatonia vs encephalitis LP showing WBCs pending cultures continue IV Acyclovir per Neurology MRI and EEG pending Sepsis and acute hypoxic respiratory failure secondary to aspiration pneumonia with risk for MRSA given recent hospitalization Continue vanco and Zosyn, follow up MRSA swab and can discontinue vancomycin if negative NPO Wean O2 as tolerated Bipolar 1 with catatonia versus malignant catatonia No significant improvement with Ativan, holding antipsychotics, Psychiatry following DVT prophylaxis with Lovenox Full Code reason for continued hospitalization: Awaiting mental status improvement, MRI and EEG Quality Stroke Does the patient have a stroke diagnosis?: No VTE Prior VTE?: No VTE Risk Level:: Medical - moderate - high VTE Device Contraindication: Treatment Not Indicated VTE Drug Contraindication: N/A - Med Ordered
[2024-12-17 22:05] LABS: Glucose, Whole Blood 74 mg/dL (60-115)
--- NOTE | 2024-12-17 22:17 | PM.PSYCN ---
History of Present Illness Date of Service: 12/17/2024 Chief Complaint: pneumonia, hypoxia, sepsis Reason for Consult: catatonia Requesting physician: Karon Shen Discussed with referring provider: Yes Sources of Information: patient interviewed, chart reviewed and crisis/core team assessment reviewed HPI Narrative: Interim Hx: pt seen continues to present with blank stare, waxy flexibility, mutism. CSF- results completed, per hospitalist traumatic tap with RBC and elevated WCB but may not be reflective of [employer] infections. discussed with Dr. Emmanuel, ECT, he will see patient and evaluate. Past Psychiatric History: Inpt: [facility] 6 years ago. Past medication trials: olanzapine, ativan 2mg/daily [facility] Medical History (Updated 12/17/24 @ 14:47 by Karon Shen MD) Bipolar I disorder with catatonia Diagnostics Vital Signs (24Hr): Vital Signs - 24 hr 12/17/24 00:17 12/17/24 04:00 12/17/24 06:39 Temperature 98.2 F 97.6 F 99.5 F Pulse Rate 86 82 Respiratory Rate 17 18 Blood Pressure 138/91 H 146/78 H Pulse Oximetry 96 98 Oxygen Delivery Method Nasal Cannula Nasal Cannula Oxygen Flow Rate 2 2 12/17/24 07:49 12/17/24 12:04 12/17/24 17:15 Temperature 99.6 F 99.2 F 99.4 F Pulse Rate 82 100 Respiratory Rate 20 20 Blood Pressure 151/96 H 132/91 H Pulse Oximetry 98 96 Oxygen Delivery Method Nasal Cannula Nasal Cannula Oxygen Flow Rate 3 2 12/17/24 17:36 12/17/24 20:00 Temperature 100.3 F Pulse Rate 92 90 Respiratory Rate 20 18 Blood Pressure 146/99 H 166/103 H Pulse Oximetry 96 97 Oxygen Delivery Method Nasal Cannula Nasal Cannula Oxygen Flow Rate 2 2 BMI result Body Mass Index 29.8 Labs 12/18/24 06:58 12/18/24 06:58 Labs: Laboratory Results - last 48 hr 12/15/24 12/16/24 12/16/24 23:06 04:47 15:44 WBC 11.3 H RBC 4.36 L Hgb 14.5 Hct 39.6 L MCV 90.8 MCH 33.3 H MCHC 36.6 H RDW 12.3 Plt Count 176 MPV 11.3 Immature Gran % (Auto) 0.4 Neut % (Auto) 79.3 H Lymph % (Auto) 13.0 L Clark % (Auto) 6.9 Eos % (Auto) 0.1 Baso % (Auto) 0.3 Lymph # (Auto) 1.5 Clark # (Auto) 0.8 Eos # (Auto) 0.0 Baso # (Auto) 0.0 Abs Immat Gran (auto) 0.04 H Absolute Neuts (auto) 9.0 H Absolute Nucleated RBC 0.000 Nucleated RBC % (auto) 0.0 Sodium 141 Potassium 3.7 Chloride 109 H Carbon Dioxide 23 Anion Gap 13 BUN 8 L Creatinine 0.74 Estim Creat Clear Calc 168.7 Estimated GFR > 60 POC Glucose Random Glucose 135 H Calcium 8.5 CSF Tube Number 1 CSF Volume CSF Appearance CSF Color CSF WBC CSF RBC CSF Neutrophils CSF Lymphocytes CSF Monocytes % CSF Appearance (b) CSF Total Protein CSF C.neoform/gat PCR CSF CMV DNA (PCR) CSF Enterovirus (PCR) CSF E. coli K1 (PCR) CSF H. influenzae (PCR) CSF HSV I (PCR) CSF HSV II (PCR) CSF HHV 6 (PCR) CSF L.monocytogenes PCR CSF N. meningitidis PCR CSF Parechovirus (PCR) CSF S. agalactiae (PCR) CSF S. pneumoniae (PCR) CSF VZV (PCR) Nasal Screen MRSA (PCR) NEGATIVE Nasal S. aureus Screen NEGATIVE Nasal MRSA/S.aureus Interp SEE NOTE 12/16/24 12/17/24 12/17/24 15:44 05:44 06:30 WBC 8.6 RBC 4.72 Hgb 15.5 Hct 42.6 MCV 90.3 MCH 32.8 MCHC 36.4 H RDW 11.9 Plt Count 173 MPV 11.7 Immature Gran % (Auto) Neut % (Auto) Lymph % (Auto) Clark % (Auto) Eos % (Auto) Baso % (Auto) Lymph # (Auto) Clark # (Auto) Eos # (Auto) Baso # (Auto) Abs Immat Gran (auto) Absolute Neuts (auto) Absolute Nucleated RBC 0.000 Nucleated RBC % (auto) 0.0 Sodium 141 Potassium 3.7 Chloride 109 H Carbon Dioxide 23 Anion Gap 13 BUN 6 L Creatinine 0.75 Estim Creat Clear Calc 166.5 Estimated GFR > 60 POC Glucose 83 Random Glucose 83 Calcium 8.8 CSF Tube Number 4 CSF Volume 3.0 CSF Appearance HAZY CSF Color PINK CSF WBC 11 H* CSF RBC 2962 CSF Neutrophils 68 CSF Lymphocytes 30 CSF Monocytes % 2 CSF Appearance (b) Clear, Colorless CSF Total Protein 29.3 CSF C.neoform/gat PCR Not Detected CSF CMV DNA (PCR) Not Detected CSF Enterovirus (PCR) Not Detected CSF E. coli K1 (PCR) Not Detected CSF H. influenzae (PCR) Not Detected CSF HSV I (PCR) Not Detected CSF HSV II (PCR) Not Detected CSF HHV 6 (PCR) Not Detected CSF L.monocytogenes PCR Not Detected CSF N. meningitidis PCR Not Detected CSF Parechovirus (PCR) Not Detected CSF S. agalactiae (PCR) Not Detected CSF S. pneumoniae (PCR) Not Detected CSF VZV (PCR) Not Detected Nasal Screen MRSA (PCR) Nasal S. aureus Screen Nasal MRSA/S.aureus Interp 12/17/24 21:57 WBC RBC Hgb Hct MCV MCH MCHC RDW Plt Count MPV Immature Gran % (Auto) Neut % (Auto) Lymph % (Auto) Clark % (Auto) Eos % (Auto) Baso % (Auto) Lymph # (Auto) Clark # (Auto) Eos # (Auto) Baso # (Auto) Abs Immat Gran (auto) Absolute Neuts (auto) Absolute Nucleated RBC Nucleated RBC % (auto) Sodium Potassium Chloride Carbon Dioxide Anion Gap BUN Creatinine Estim Creat Clear Calc Estimated GFR POC Glucose 74 Random Glucose Calcium CSF Tube Number CSF Volume CSF Appearance CSF Color CSF WBC CSF RBC CSF Neutrophils CSF Lymphocytes CSF Monocytes % CSF Appearance (b) CSF Total Protein CSF C.neoform/gat PCR CSF CMV DNA (PCR) CSF Enterovirus (PCR) CSF E. coli K1 (PCR) CSF H. influenzae (PCR) CSF HSV I (PCR) CSF HSV II (PCR) CSF HHV 6 (PCR) CSF L.monocytogenes PCR CSF N. meningitidis PCR CSF Parechovirus (PCR) CSF S. agalactiae (PCR) CSF S. pneumoniae (PCR) CSF VZV (PCR) Nasal Screen MRSA (PCR) Nasal S. aureus Screen Nasal MRSA/S.aureus Interp Medications Medications Current Medications Acetaminophen (Acetaminophen Supp 650 Mg Supp.Rect) 650 mg [place] Q6H PRN PRN Reason: Pain, Mild 1-3,fever,headache Last Admin: 12/17/24 20:49 Dose: 650 mg Enoxaparin Sodium (Enoxaparin Sodium 40 Mg/0.4 Ml Syringe) 40 mg SUBCUT Q24H [facility] Last Admin: 12/15/24 20:49 Dose: 40 mg Acyclovir Sodium 850 mg/ (Sodium Chloride) 267 mls @ 267 mls/hr IV Q8H [facility] Last Admin: 12/17/24 20:41 Dose: 267 mls/hr Piperacillin Sod/Tazobactam (Sod 4.5 gm/ Sodium Chloride) 100 mls @ 200 mls/hr IV Q6H [facility] Last Infusion: 12/17/24 17:38 Dose: Infused Nicotine (Nicotine 21 Mg Patch.Td24) 21 mg TRANSDERMA DAILY [facility] Last Admin: 12/17/24 07:51 Dose: 21 mg Ondansetron HCl (Ondansetron Hcl 4 Mg/2 Ml Vial) 4 mg IVPUSH Q8H PRN PRN Reason: Nausea and Vomiting Allergies Allergies Allergy/AdvReac Type Severity Reaction Status Date / Time sertraline [From Zoloft] Allergy Unknown Verified 12/14/24 16:10 Assessment & Plan Assessment & Plan (1) Catatonia: Status: Acute Code(s): F06.1 - Catatonic disorder due to known physiological condition Assessment and Plan: as additional work up comes back negative, including LP results, MRI Malignant catatonia may be most accurate dx. Plan discussed ECT as at this point he has not responded to ativan with psychiatrist Dr. Toni Emmanuel and hospitalist Dr. Newsome. Total time managing care of this patient today ____ minutes.
[2024-12-18] VITALS (7 sets, daily range): BP systolic 138–165; BP diastolic 80–107; PULSE 75–108; RESP 14–20; TEMP 36.3–37.5; O2SAT 93–96
[2024-12-18] MEDS: Acyclovir Sodium 850 MG in 0.9 % Sodium Chloride 250 ML 267 MG IV ×3 (02:56→20:50)
[2024-12-18 04:15] LABS: Glucose, Whole Blood 85 mg/dL (60-115)
[2024-12-18] MEDS: Piperacillin Sodium/Tazobactam 4.5 GM in 0.9 % Sodium Chloride 100 ML IV ×4 (04:54→22:41)
[2024-12-18] MEDS: Nicotine 21 MG PATCH.TD24 TRANSDERMA (07:37)
[2024-12-18 07:38] LABS: Glucose, Whole Blood 93 mg/dL (60-115)
[2024-12-18 08:03] LABS: MANUAL DIFF FLAG NO
[2024-12-18 08:12] LABS: Basophils Percent Auto 0.4 % (0-2); Eosinophils Absolute Auto 0.1 X10*3/uL (0.0-0.4); Eosinophils Percent Auto 0.6 % (0-4); Hematocrit 40.1 % (42.0-52.0); Hemoglobin 14.9 g/dl (14.0-18.0); Imm Gran Abs Auto 0.05 X10*3/uL (0.00-0.03); Imm Gran Pct Auto 0.6 % (0.0-0.4); Lymphocytes Absolute Auto 1.4 X10*3/uL (1.2-4.9); Lymphocytes Percent Auto 17.2 % (20-40); Mean Corpuscular HGB Conc 37.2 g/dl (31.0-36.0); Mean Corpuscular Hemoglobin 32.9 pg (27.0-33.0); Mean Corpuscular Volume 88.5 fL (80.0-98.0); Mean Platelet Volume 10.8 fL (9.4-12.4); Monocytes Absolute Auto 0.5 X10*3/uL (0.1-1.2); Monocytes Percent Auto 5.4 % (2-11); Neutrophils Absolute Auto 6.4 x10*3/uL (2.0-8.3); Neutrophils Percent Auto 75.8 % (45-73); Platelet Count 182 X10*3/uL (160-400); Red Blood Count 4.53 X10*6/uL (4.60-5.80); Red Cell Distribution Width 11.9 % (11.0-16.0); White Blood Count 8.4 X10*3/uL (4.8-10.8)
[2024-12-18 08:25] LABS: Anion Gap 16 (12-20); Blood Urea Nitrogen 9 mg/dL (9-16); Calcium 8.8 mg/dL (8.4-10.2); Carbon Dioxide 21 mmol/L (22-29); Chloride 108 mmol/L (96-108); Estimated Glomerular Filt Rate > 60; Glucose Random 80 mg/dL (60-115); Potassium 3.6 mmol/L (3.3-5.1); Sodium 141 mmol/L (135-145)
[2024-12-18] MEDS: Dextrose 5 % and Lactated Ring 1,000 ML 100 ML IVCONT (10:37)
[2024-12-18] MEDS: LORazepam 2 MG/ML VIAL 1 MG IVPUSH ×3 (10:59→21:43)
[2024-12-18 14:42] LABS: Glucose, Whole Blood 89 mg/dL (60-115)
--- NOTE | 2024-12-18 15:02 | P.PNIM_ITS ---
Subjective Subjective Date of Service: 12/18/24 Interval History: Seen and evaluated this morning altered, open eyes and make eye contact but non-verbal or following commands no fever reported passed BAGGAGE CLERK eval no other events Review of Systems Review of Systems: Yes Unobtainable due to mental status Physical Exam 2 Vital Signs: Vital Signs: Last Vital Signs Temp 97.6 F 12/18/24 14:43 Pulse 100 12/18/24 14:43 Resp 14 12/18/24 14:43 BP 163/98 H 12/18/24 14:43 Pulse Ox 96 12/18/24 14:43 O2 Del Method Nasal Cannula 12/18/24 14:43 O2 Flow Rate 2 12/18/24 14:43 BMI result Body Mass Index 29.8 Const: Other: Constitutional : alert with stimulation but non verbal on intercative, not in distress Cardiovascular : no JVP, no lower extremity edema Respiratory : bilateral chest movement, not in resp distress Gastrointestinal: soft, lax, Non tender Skin : Warm, Dry Neurological : Alert & non-responsive verbally, not following commands , moving extremities Objective Data Active Medications Acetaminophen (Acetaminophen Supp 650 Mg Supp.Rect) 650 mg [place] Q6H PRN PRN Reason: Pain, Mild 1-3,fever,headache Last Admin: 12/17/24 20:49 Dose: 650 mg Documented By: NOLAN Enoxaparin Sodium (Enoxaparin Sodium 40 Mg/0.4 Ml Syringe) 40 mg SUBCUT Q24H [facility] Last Admin: 12/15/24 20:49 Dose: 40 mg Documented By: CARLEE Acyclovir Sodium 850 mg/ (Sodium Chloride) 267 mls @ 267 mls/hr IV Q8H [facility] Last Infusion: 12/18/24 13:27 Dose: Infused Documented By: VICTOR HUGO Piperacillin Sod/Tazobactam (Sod 4.5 gm/ Sodium Chloride) 100 mls @ 200 mls/hr IV Q6H [facility] Last Infusion: 12/18/24 08:29 Dose: Infused Documented By: VICTOR HUGO Dextrose/Lactated Ringer's (D5lr) 1,000 mls @ 100 mls/hr IVCONT .Q10H [facility] Last Infusion: 12/18/24 13:33 Dose: 100 mls/hr Documented By: VICTOR HUGO Lorazepam (Lorazepam 2 Mg/Ml Vial) 1 mg IVPUSH Q6H [facility] Last Admin: 12/18/24 10:59 Dose: 1 mg Documented By: VICTOR HUGO Nicotine (Nicotine 21 Mg Patch.Td24) 21 mg TRANSDERMA DAILY [facility] Last Admin: 12/18/24 07:37 Dose: 21 mg Documented By: VICTOR HUGO Ondansetron HCl (Ondansetron Hcl 4 Mg/2 Ml Vial) 4 mg IVPUSH Q8H PRN PRN Reason: Nausea and Vomiting Labs 12/18/24 06:58 12/18/24 06:58 Labs: Laboratory Results - last 24 hr 12/17/24 12/18/24 12/18/24 21:57 04:11 06:58 MCV 88.5 MCH 32.9 MCHC 37.2 H RDW 11.9 Plt Count 182 MPV 10.8 Immature Gran % (Auto) 0.6 H Neut % (Auto) 75.8 H Lymph % (Auto) 17.2 L [place] % (Auto) 5.4 Eos % (Auto) 0.6 Baso % (Auto) 0.4 Lymph # (Auto) 1.4 [place] # (Auto) 0.5 Eos # (Auto) 0.1 Baso # (Auto) 0.0 Abs Immat Gran (auto) 0.05 H Absolute Neuts (auto) 6.4 Absolute Nucleated RBC 0.000 Nucleated RBC % (auto) 0.0 Anion Gap 16 Estim Creat Clear Calc 181.0 Estimated GFR > 60 POC Glucose 74 85 Random Glucose 80 Calcium 8.8 12/18/24 12/18/24 07:28 14:37 MCV MCH MCHC RDW Plt Count MPV Immature Gran % (Auto) Neut % (Auto) Lymph % (Auto) [place] % (Auto) Eos % (Auto) Baso % (Auto) Lymph # (Auto) [place] # (Auto) Eos # (Auto) Baso # (Auto) Abs Immat Gran (auto) Absolute Neuts (auto) Absolute Nucleated RBC Nucleated RBC % (auto) Anion Gap Estim Creat Clear Calc Estimated GFR POC Glucose 93 89 Random Glucose Calcium Microbiology Microbiology Results: Microbiology 12/16/24 15:44 Gram Stain - Final Cerebrospinal Fluid CSF Examination - Final Fluid Description - Final CSF Culture - Preliminary No growth after 1 day 12/15/24 19:47 Blood Culture - Preliminary Blood - Venous No growth after 48 hours. 12/15/24 19:29 Blood Culture - Preliminary Blood - Venous No growth after 48 hours. Assessment and Plan (1) Toxic metabolic encephalopathy: Status: Acute (2) Pneumonia: Status: Acute (3) Bipolar I disorder with catatonia: Status: Acute (4) Catatonia: Status: Acute Plan 34M PMH bipolar 1 sent for Jul[facility] [place] for catatonia and acute hypoxia Angelic-Op clearance evaluated per RCRI Non-emergent surgery , no ACS RCRI score of 0 Based on overall clinical evaluation and RCRI assessment the patient is medically cleared for surgical intervention and carries mild angelic-operative risk Acute metabolic\Toxic encephalopathy likely related to catatonia rather than encephalitis LP showing small amoung of WBCs of 11, could be iatrogenic as sample aslo has RBCs pending final CSF cultures continue IV Acyclovir per Neurology MRI negative for any acute findings Unable to do EEG as he was not following any commands Discussed with Psychiatry, He will need ECT treatment Spoke with his who is agreeable for ECT, i answered her questions. Dr Emmanuel will reach out to her to discuss the procedure. Sepsis and acute hypoxic respiratory failure secondary to aspiration pneumonia with risk for MRSA given recent hospitalization Sepsis resolved On Zosyn for aspirationn Wean O2 as tolerated BAGGAGE CLERK rec NDD1, NPO post midnight Bipolar 1 with catatonia versus malignant catatonia No significant improvement with Ativan, holding antipsychotics, Psychiatry following DVT prophylaxis with Lovenox Full Code reason for continued hospitalization: Awaiting mental status improvement, MRI and EEG Quality Stroke Does the patient have a stroke diagnosis?: No VTE Prior VTE?: No VTE Risk Level:: Medical - moderate - high VTE Device Contraindication: Treatment Not Indicated VTE Drug Contraindication: N/A - Med Ordered
--- NOTE | 2024-12-18 15:15 | P.CNPS_ITS ---
History of Present Illness Date of Service: 12/18/24 Chief Complaint: pneumonia, hypoxia, sepsis Reason for Consult: ect ? for catatonia Requesting physician: Karon Shen Discussed with referring provider: Yes Sources of Information: patient interviewed and chart reviewed Additional Sources of Information: pt seen examined non verbal HPI Narrative: Pt seen spoke with dr elissa Parmar nurse practitioner and Dr. Kan from Psychiatry. Patient has reported history of bipolar disorder was reportedly stable on Lamictal and olanzapine in the past. Patient had reportedly been off medication after changing primary care physicians. The patient was admitted to [facility] became catatonic and apparently may have had aspiration pneumonia. Patient has been treated for pneumonia he is recovering he has had a lumbar puncture e.g. there is no other cause for encephalopathy or other neurological condition appears to have catatonia in the context of history of bipolar disorder. Case reviewed with Dr. May from Neurology labs MRI Past Psychiatric History: Inpt: [facility] 6 years ago. Past medication trials: olanzapine, ativan 2mg/daily [facility] Medical History Bipolar I disorder with catatonia Diagnostics Vital Signs (24Hr): Vital Signs - 24 hr 12/17/24 17:15 12/17/24 17:36 12/17/24 20:00 Temperature 99.4 F 100.3 F Pulse Rate 92 90 Respiratory Rate 20 18 Blood Pressure 146/99 H 166/103 H Pulse Oximetry 96 97 Oxygen Delivery Method Nasal Cannula Nasal Cannula Oxygen Flow Rate 2 2 12/17/24 22:00 12/17/24 23:38 12/18/24 03:39 Temperature 99.2 F 99.0 F 97.3 F Pulse Rate 95 108 H Respiratory Rate 18 20 Blood Pressure 141/84 H 153/93 H Pulse Oximetry 95 93 Oxygen Delivery Method Nasal Cannula Nasal Cannula Oxygen Flow Rate 2 2 12/18/24 07:00 12/18/24 10:06 12/18/24 11:00 Temperature 98.9 F 98.0 F Pulse Rate 96 96 89 Respiratory Rate 18 14 Blood Pressure 165/107 H 165/107 H 153/95 H Pulse Oximetry 96 95 Oxygen Delivery Method Room Air Oxygen Flow Rate 12/18/24 14:43 Temperature 97.6 F Pulse Rate 100 Respiratory Rate 14 Blood Pressure 163/98 H Pulse Oximetry 96 Oxygen Delivery Method Nasal Cannula Oxygen Flow Rate 2 BMI result Body Mass Index 29.8 Labs 12/21/24 08:09 12/21/24 07:18 Labs: Laboratory Results - last 48 hr 12/16/24 12/16/24 12/17/24 15:44 15:44 05:44 WBC RBC Hgb Hct MCV MCH MCHC RDW Plt Count MPV Immature Gran % (Auto) Neut % (Auto) Lymph % (Auto) [place] % (Auto) Eos % (Auto) Baso % (Auto) Lymph # (Auto) [place] # (Auto) Eos # (Auto) Baso # (Auto) Abs Immat Gran (auto) Absolute Neuts (auto) Absolute Nucleated RBC Nucleated RBC % (auto) Sodium Potassium Chloride Carbon Dioxide Anion Gap BUN Creatinine Estim Creat Clear Calc Estimated GFR POC Glucose 83 Random Glucose Calcium CSF Tube Number 1 4 CSF Volume 3.0 CSF Appearance HAZY CSF Color PINK CSF WBC 11 H* CSF RBC 2962 CSF Neutrophils 68 CSF Lymphocytes 30 CSF Monocytes % 2 CSF Appearance (b) Clear, Colorless CSF Total Protein 29.3 CSF C.neoform/gat PCR Not Detected CSF CMV DNA (PCR) Not Detected CSF Enterovirus (PCR) Not Detected CSF E. coli K1 (PCR) Not Detected CSF H. influenzae (PCR) Not Detected CSF HSV I (PCR) Not Detected CSF HSV II (PCR) Not Detected CSF HHV 6 (PCR) Not Detected CSF L.monocytogenes PCR Not Detected CSF N. meningitidis PCR Not Detected CSF Parechovirus (PCR) Not Detected CSF S. agalactiae (PCR) Not Detected CSF S. pneumoniae (PCR) Not Detected CSF VZV (PCR) Not Detected 12/17/24 12/17/24 12/18/24 06:30 21:57 04:11 WBC 8.6 RBC 4.72 Hgb 15.5 Hct 42.6 MCV 90.3 MCH 32.8 MCHC 36.4 H RDW 11.9 Plt Count 173 MPV 11.7 Immature Gran % (Auto) Neut % (Auto) Lymph % (Auto) [place] % (Auto) Eos % (Auto) Baso % (Auto) Lymph # (Auto) [place] # (Auto) Eos # (Auto) Baso # (Auto) Abs Immat Gran (auto) Absolute Neuts (auto) Absolute Nucleated RBC 0.000 Nucleated RBC % (auto) 0.0 Sodium 141 Potassium 3.7 Chloride 109 H Carbon Dioxide 23 Anion Gap 13 BUN 6 L Creatinine 0.75 Estim Creat Clear Calc 166.5 Estimated GFR > 60 POC Glucose 74 85 Random Glucose 83 Calcium 8.8 CSF Tube Number CSF Volume CSF Appearance CSF Color CSF WBC CSF RBC CSF Neutrophils CSF Lymphocytes CSF Monocytes % CSF Appearance (b) CSF Total Protein CSF C.neoform/gat PCR CSF CMV DNA (PCR) CSF Enterovirus (PCR) CSF E. coli K1 (PCR) CSF H. influenzae (PCR) CSF HSV I (PCR) CSF HSV II (PCR) CSF HHV 6 (PCR) CSF L.monocytogenes PCR CSF N. meningitidis PCR CSF Parechovirus (PCR) CSF S. agalactiae (PCR) CSF S. pneumoniae (PCR) CSF VZV (PCR) 12/18/24 12/18/24 12/18/24 06:58 07:28 14:37 WBC 8.4 RBC 4.53 L Hgb 14.9 Hct 40.1 L MCV 88.5 MCH 32.9 MCHC 37.2 H RDW 11.9 Plt Count 182 MPV 10.8 Immature Gran % (Auto) 0.6 H Neut % (Auto) 75.8 H Lymph % (Auto) 17.2 L [place] % (Auto) 5.4 Eos % (Auto) 0.6 Baso % (Auto) 0.4 Lymph # (Auto) 1.4 [place] # (Auto) 0.5 Eos # (Auto) 0.1 Baso # (Auto) 0.0 Abs Immat Gran (auto) 0.05 H Absolute Neuts (auto) 6.4 Absolute Nucleated RBC 0.000 Nucleated RBC % (auto) 0.0 Sodium 141 Potassium 3.6 Chloride 108 Carbon Dioxide 21 L Anion Gap 16 BUN 9 Creatinine 0.69 Estim Creat Clear Calc 181.0 Estimated GFR > 60 POC Glucose 93 89 Random Glucose 80 Calcium 8.8 CSF Tube Number CSF Volume CSF Appearance CSF Color CSF WBC CSF RBC CSF Neutrophils CSF Lymphocytes CSF Monocytes % CSF Appearance (b) CSF Total Protein CSF C.neoform/gat PCR CSF CMV DNA (PCR) CSF Enterovirus (PCR) CSF E. coli K1 (PCR) CSF H. influenzae (PCR) CSF HSV I (PCR) CSF HSV II (PCR) CSF HHV 6 (PCR) CSF L.monocytogenes PCR CSF N. meningitidis PCR CSF Parechovirus (PCR) CSF S. agalactiae (PCR) CSF S. pneumoniae (PCR) CSF VZV (PCR) Imaging Radiology Impressions: ITS Impressions Fluoroscopy 12/16/24 15:33 IMPRESSION: Successful fluoroscopy-guided L4-5 lumbar puncture performed. CSF fluid collected was sent to lab as per referring physician's orders. Electronically signed by: Liam Olea MD 12/18/2024 12:41 PM EDT RP Brain MRI 12/17/24 16:03 IMPRESSION: No acute stroke/ischemia or acute brain abnormality. Electronically signed by: Lenard Quiroga MD 12/18/2024 07:19 AM EDT RP Mental Status Exam Mental Status Exam Narrative: Pt in bed, staring, lying on his side. Waxy flexibility noted some rigidity no tremor patient did not track with his eyes would not follow commands did not respond would not respond to any questioning Medications Medications Current Medications Acetaminophen (Acetaminophen Supp 650 Mg Supp.Rect) 650 mg [place] Q6H PRN PRN Reason: Pain, Mild 1-3,fever,headache Last Admin: 12/17/24 20:49 Dose: 650 mg Enoxaparin Sodium (Enoxaparin Sodium 40 Mg/0.4 Ml Syringe) 40 mg SUBCUT Q24H [facility] Last Admin: 12/15/24 20:49 Dose: 40 mg Acyclovir Sodium 850 mg/ (Sodium Chloride) 267 mls @ 267 mls/hr IV Q8H [facility] Last Infusion: 12/18/24 13:27 Dose: Infused Piperacillin Sod/Tazobactam (Sod 4.5 gm/ Sodium Chloride) 100 mls @ 200 mls/hr IV Q6H [facility] Last Infusion: 12/18/24 08:29 Dose: Infused Dextrose/Lactated Ringer's (D5lr) 1,000 mls @ 100 mls/hr IVCONT .Q10H [facility] Last Infusion: 12/18/24 13:33 Dose: 100 mls/hr Lorazepam (Lorazepam 2 Mg/Ml Vial) 1 mg IVPUSH Q6H [facility] Last Admin: 12/18/24 10:59 Dose: 1 mg Nicotine (Nicotine 21 Mg Patch.Td24) 21 mg TRANSDERMA DAILY [facility] Last Admin: 12/18/24 07:37 Dose: 21 mg Ondansetron HCl (Ondansetron Hcl 4 Mg/2 Ml Vial) 4 mg IVPUSH Q8H PRN PRN Reason: Nausea and Vomiting Allergies Allergies Allergy/AdvReac Type Severity Reaction Status Date / Time sertraline [From Zoloft] Allergy Unknown Verified 12/14/24 16:10 Assessment & Plan Assessment & Plan (1) Bipolar I disorder with catatonia: Status: Acute Code(s): F31.9 - Bipolar disorder, unspecified; F06.1 - Catatonic disorder due to known physiological condition Plan Patient appears to have history of bipolar disorder with psychotic features new onset catatonia over the past week or more with no response to lorazepam. Case reviewed with patient's who is able to give informed consent risks benefits reviewed side effects reviewed. Patient consent from nearest relative in the context of catatonia with some recent medical complications ECT is a potentially life-saving treatment and is indicated Total time managing care of this patient today __60__ minutes. Guardian/Caregiver educated on: diagnosis, ECT and medical condition Informed Consent: understands
--- NOTE | 2024-12-18 16:35 | MHC.SL.SWA ---
Speech Pathologist Impression: Risk of Aspiration Due to: History of Pneumonia Dysphasia Diet Status: Liquid Consistency and Strategies for Safe Swallow: Liquid Intake Recommendation: Thin Liquid Intake Strategies: Small Sips Solid Food Consistency: Dietary Recommendations: Pureed (NDD1) Additional Modifications to Solid Foods: Patient will need full assistance at meals, though attempts should be made to encourage patient to hold utensils or cup to initiate self feeding. Patient unlikely to take much p.o., and PO should be offered only to level of toleration. Recommend liquids and purees by tsp only. Assure that patient has swallowed any food or liquid presented and has not held/pocketed any food orally. Oral Medication Intake: Crushed with Puree Please contact the pharmacy regarding appropriate crushable or liquid drug formulations that are available whenever modified delivery is recommended. Compensatory Strategies and Precautions to be Taken for Safe Swallow: Sitting Upright (90 deg) Liquids from Spoon Small Bites and Sips Alternate Liquids/Solids Rate of Ingestion Change Oral Check Supervision While Eating and Drinking for Safe Swallow: Total Assistance (1:1) Foods to Avoid: Swallowing Recommended Treatments: Compens. Strategy Educat. Recommendation for Speech: Inpatient Speech Therapy Comment: Patient tolerated only limited assessment today, unable to follow directions and having limited responsiveness due to catatonia. Patient tolerated only sips of water from tsp and trace amount of puree also from spoon. Patient behaviorally will be difficult to feed, may take only trace amounts at any presentation. Recommend START diet of Puree (NDD1) with THIN liquids, pills crushed in puree, all by tsp, only as tolerated by patient. Patient unlikely to get adequate nutrition/hydration orally at this time, may need alternative nutrition at least on temporary basis. Patient will require 1-1 feed, careful observation so that food or liquid is not pocketed. , RD notified of recommendation by secure text, RN in person. INTEGRATED MARKETING SPECIALIST will follow, re-assess as appropriate for advancement of diet when warranted. Frequency/Duration: Date Range for Service Req: Timeline to reassess: Network Intelligence Analyst Clinican/Clinical Fellow: No Supervisory Statement: I have reviewed and agree with the student/clinical fellow's documentation: N/A Speech Language Pathologist: Khalida Morris M.A., CCC-INTEGRATED MARKETING SPECIALIST
--- NOTE | 2024-12-18 18:25 | PC.NURSE ---
At 1825, the patient has suddenly moved his body and jumped over the bed side rails, standing for a couple of seconds then let his body fall back in bed. This RN has helped the patient to get fixed back and bed; tried to redirect the patient, but there were no commands followed, only eye tracing. Camera/sitter in the room. Call garcia within reach
[2024-12-18 20:16] LABS: Glucose, Whole Blood 116 mg/dL (60-115)
[2024-12-19] VITALS (11 sets, daily range): BP systolic 126–168; BP diastolic 80–109; PULSE 67–103; RESP 14–20; TEMP 36.6–37.3; O2SAT 91–96
--- NOTE | 2024-12-19 | EEG_ITS ---
This is a 16 channel EEG with an EKG lead. The patient is reported awake during the tracing. Background EEG rhythm is low amplitude, mixed theta, beta with no obvious asymmetry or paroxysmal tendency. Photic stimulation does not produce any significant abnormality. Hyperventilation is not performed. Cardiac lead did not reveal any significant abnormality. No sharp wave spikes or paroxysmal tendency noted. IMPRESSION: Mild slowing with no evidence of seizure disorder. MD DILCIA Campos/DAQUAN / [id number]
[2024-12-19 03:53] LABS: Glucose, Whole Blood 123 mg/dL (60-115)
[2024-12-19] MEDS: LORazepam 2 MG/ML VIAL 1 MG IVPUSH ×4 (04:19→21:57)
[2024-12-19] MEDS: Dextrose 5 % and Lactated Ring 1,000 ML 100 ML IVCONT ×2 (04:19→21:17)
[2024-12-19] MEDS: Acyclovir Sodium 850 MG in 0.9 % Sodium Chloride 250 ML 267 MG IV (04:19)
[2024-12-19] MEDS: Piperacillin Sodium/Tazobactam 4.5 GM in 0.9 % Sodium Chloride 100 ML IV ×4 (05:37→21:18)
[2024-12-19 07:45] LABS: MANUAL DIFF FLAG NO
[2024-12-19 07:52] LABS: Basophils Percent Auto 0.3 % (0-2); Eosinophils Absolute Auto 0.1 X10*3/uL (0.0-0.4); Hematocrit 39.3 % (42.0-52.0); Hemoglobin 14.7 g/dl (14.0-18.0); Imm Gran Abs Auto 0.03 X10*3/uL (0.00-0.03); Imm Gran Pct Auto 0.4 % (0.0-0.4); Lymphocytes Percent Auto 26.3 % (20-40); Mean Corpuscular HGB Conc 37.4 g/dl (31.0-36.0); Mean Corpuscular Hemoglobin 32.5 pg (27.0-33.0); Mean Corpuscular Volume 86.8 fL (80.0-98.0); Mean Platelet Volume 10.6 fL (9.4-12.4); Monocytes Absolute Auto 0.6 X10*3/uL (0.1-1.2); Monocytes Percent Auto 8.3 % (2-11); Neutrophils Absolute Auto 4.9 x10*3/uL (2.0-8.3); Neutrophils Percent Auto 63.7 % (45-73); Platelet Count 206 X10*3/uL (160-400); Red Blood Count 4.53 X10*6/uL (4.60-5.80); Red Cell Distribution Width 11.8 % (11.0-16.0); White Blood Count 7.7 X10*3/uL (4.8-10.8)
[2024-12-19 08:08] LABS: Anion Gap 15 (12-20); Blood Urea Nitrogen 8 mg/dL (9-16); Calcium 8.7 mg/dL (8.4-10.2); Carbon Dioxide 22 mmol/L (22-29); Chloride 107 mmol/L (96-108); Creatinine Clr Calc Pharmacy 171.1; Estimated Glomerular Filt Rate > 60; Glucose Random 101 mg/dL (60-115); Potassium 3.6 mmol/L (3.3-5.1); Sodium 140 mmol/L (135-145)
[2024-12-19 08:10] LABS: Alanine Aminotransferase 13 U/L (0-40); Albumin Level 3.7 g/dL (3.5-5.0); Alkaline Phosphatase 58 U/L (39-117); Aspartate Amino Transferase 28 U/L (5-37); Bilirubin Direct 0.4 mg/dL (0.0-0.5); Total Protein 6.3 g/dL (6.5-8.0)
[2024-12-19 09:10] LABS: Glucose, Whole Blood 115 mg/dL (60-115)
--- NOTE | 2024-12-19 10:25 | MHC.CM.PN ---
EMR REVIEWED, PER HOSPITALIST PLAN FOR PT TO HAVE EEG TODAY TO CLEAR PT FOR ECT, NO PLAN FOR DC AT THIS TIME, PT'S JACOB WOULD LIKE PT TO REMAIN AT [facility], CM WILL CONT TO FOLLOW DC NEEDS.
--- NOTE | 2024-12-19 10:54 | HO.PM.IMPN ---
Subjective Subjective Date of Service: 12/19/24 Interval History: Seen and evaluated this morning moves in bed, open eyes and make eye contact but non-verbal or following commands no fever reported no other events Review of Systems Review of Systems: Yes Unobtainable due to mental status Physical Exam Vital Signs: Vital Signs: Last Vital Signs Temp 98.2 F 12/19/24 07:00 Pulse 84 12/19/24 07:00 Resp 14 12/19/24 07:00 BP 126/88 12/19/24 07:00 Pulse Ox 94 12/19/24 07:00 O2 Del Method Room Air 12/19/24 07:00 O2 Flow Rate 2 12/18/24 19:00 BMI result Body Mass Index 29.8 Const: Other: Constitutional : alert with stimulation but non verbal on intercative, not in distress Cardiovascular : no JVP, no lower extremity edema Respiratory : bilateral chest movement, not in resp distress Gastrointestinal: soft, lax, Non tender Skin : Warm, Dry Neurological : Alert & non-responsive verbally, not following commands , moving extremities Objective Data Active Medications Acetaminophen (Acetaminophen Supp 650 Mg Supp.Rect) 650 mg [place] Q6H PRN PRN Reason: Pain, Mild 1-3,fever,headache Last Admin: 12/17/24 20:49 Dose: 650 mg Documented By: NOLAN Enoxaparin Sodium (Enoxaparin Sodium 40 Mg/0.4 Ml Syringe) 40 mg SUBCUT Q24H [facility] Last Admin: 12/15/24 20:49 Dose: 40 mg Documented By: CARLEE Acyclovir Sodium 850 mg/ (Sodium Chloride) 267 mls @ 267 mls/hr IV Q8H [facility] Last Infusion: 12/19/24 05:20 Dose: Infused Documented By: NOLAN Piperacillin Sod/Tazobactam (Sod 4.5 gm/ Sodium Chloride) 100 mls @ 200 mls/hr IV Q6H [facility] Last Infusion: 12/19/24 06:10 Dose: Infused Documented By: NOLAN Dextrose/Lactated Ringer's (D5lr) 1,000 mls @ 100 mls/hr IVCONT .Q10H [facility] Last Infusion: 12/19/24 04:20 Dose: 100 mls/hr Documented By: NOLAN Lorazepam (Lorazepam 2 Mg/Ml Vial) 1 mg IVPUSH Q6H [facility] Last Admin: 12/19/24 04:19 Dose: 1 mg Documented By: SUZY-JOSE EDUARDO Nicotine (Nicotine 21 Mg Patch.Td24) 21 mg TRANSDERMA DAILY [facility] Last Admin: 12/18/24 07:37 Dose: 21 mg Documented By: VICTOR HUGO Ondansetron HCl (Ondansetron Hcl 4 Mg/2 Ml Vial) 4 mg IVPUSH Q8H PRN PRN Reason: Nausea and Vomiting Labs 12/19/24 07:19 12/19/24 07:19 Labs: Laboratory Results - last 24 hr 12/18/24 12/18/24 12/19/24 14:37 20:05 03:47 MCV MCH MCHC RDW Plt Count MPV Immature Gran % (Auto) Neut % (Auto) Lymph % (Auto) [place] % (Auto) Eos % (Auto) Baso % (Auto) Lymph # (Auto) [place] # (Auto) Eos # (Auto) Baso # (Auto) Abs Immat Gran (auto) Absolute Neuts (auto) Absolute Nucleated RBC Nucleated RBC % (auto) Anion Gap Estim Creat Clear Calc Estimated GFR POC Glucose 89 116 H 123 H Random Glucose Calcium Total Bilirubin Direct Bilirubin AST ALT Alkaline Phosphatase Total Creatine Kinase Total Protein Albumin 12/19/24 12/19/24 07:19 09:05 MCV 86.8 MCH 32.5 MCHC 37.4 H RDW 11.8 Plt Count 206 MPV 10.6 Immature Gran % (Auto) 0.4 Neut % (Auto) 63.7 Lymph % (Auto) 26.3 [place] % (Auto) 8.3 Eos % (Auto) 1.0 Baso % (Auto) 0.3 Lymph # (Auto) 2.0 [place] # (Auto) 0.6 Eos # (Auto) 0.1 Baso # (Auto) 0.0 Abs Immat Gran (auto) 0.03 Absolute Neuts (auto) 4.9 Absolute Nucleated RBC 0.000 Nucleated RBC % (auto) 0.0 Anion Gap 15 Estim Creat Clear Calc 171.1 Estimated GFR > 60 POC Glucose 115 Random Glucose 101 Calcium 8.7 Total Bilirubin 1.0 Direct Bilirubin 0.4 AST 28 ALT 13 Alkaline Phosphatase 58 Total Creatine Kinase 234 H Total Protein 6.3 L Albumin 3.7 Microbiology Microbiology Results: Microbiology 12/16/24 15:44 Gram Stain - Final Cerebrospinal Fluid CSF Examination - Final Fluid Description - Final CSF Culture - Preliminary No growth after 2 days Assessment and Plan (1) Toxic metabolic encephalopathy: Status: Acute (2) Pneumonia: Status: Acute (3) Catatonia: Status: Acute Plan 34M PMH bipolar 1 sent for Julita [place] for catatonia and acute hypoxia Acute metabolic\Toxic encephalopathy likely related to catatonia less likely encephalitis LP showing small amoung of WBCs of 11, could be iatrogenic as sample also has RBCs Negative encephalitis panel pending CSF cultures dc IV Acyclovir MRI negative for any acute findings to try EEG to r\o status epilepticus Discussed with Psychiatry, He will need ECT treatment Spoke with his who is agreeable for ECT, scheduled for this afternoon Sepsis and acute hypoxic respiratory failure secondary to aspiration pneumonia with risk for MRSA given recent hospitalization Sepsis resolved On Zosyn for aspirationn Wean O2 as tolerated MANUFACTURING MECHANIC rec NDD1 Bipolar 1 with catatonia versus malignant catatonia No significant improvement with Ativan, holding antipsychotics, Psychiatry following DVT prophylaxis with Lovenox Full Code reason for continued hospitalization: Awaiting mental status improvement, ECT and EEG Quality Stroke Does the patient have a stroke diagnosis?: No VTE Prior VTE?: No VTE Risk Level:: Medical - moderate - high VTE Device Contraindication: Treatment Not Indicated VTE Drug Contraindication: N/A - Med Ordered
--- NOTE | 2024-12-19 11:20 | MHC.SLORD ---
Speech Language Pathology Order Status: Patient NPO for procedure (possible ECT). No PO trials given. BUILDING COMPONENTS DESIGNER will continue to follow.
[2024-12-19] MEDS: Nicotine 21 MG PATCH.TD24 TRANSDERMA (11:22)
--- NOTE | 2024-12-19 14:29 | P.CONAN_ITS ---
HPI - Anesthesia Eval Consult details Narrative: for ECT. 4M PMH bipolar 1 sent for Julita Veradale for catatonia and acute hypoxia Acute metabolic\Toxic encephalopathy likely related to catatonia less likely encephalitis LP showing small amoung of WBCs of 11, could be iatrogenic as sample also has RBCs Negative encephalitis panel pending CSF cultures dc IV Acyclovir MRI negative for any acute findings to try EEG to r\o status epilepticus Discussed with Psychiatry, He will need ECT treatment Spoke with his who is agreeable for ECT, scheduled for this afternoon Sepsis and acute hypoxic respiratory failure secondary to aspiration pneumonia with risk for MRSA given recent hospitalization Sepsis resolved On Zosyn for aspirationn Wean O2 as tolerated [employer] rec NDD1 Bipolar 1 with catatonia versus malignant catatonia No significant improvement with Ativan, holding antipsychotics, Psychiatry following PMFSH Active Problems Active Problems: All Active Problems Toxic metabolic encephalopathy (Acute) Pneumonia (Acute) Acute hypoxemic respiratory failure (Acute) Sepsis (Acute) Pneumonia (Acute) Bipolar I disorder with catatonia (Acute) Catatonia (Acute) Altered mental status (Acute) Past Medical History Medical History Bipolar I disorder with catatonia Family History Family history of problems with anesthesia: No Surgical History History of Problems with Anesthesia: No Social History Social History Household Members: Spouse Housing: House Do you presently have visiting nurse or other home services: No Unable to assess alcohol history related to: Unable to respond and Refusing to respond Comment: 1:1 sitter at bedside for safety Patient Tobacco Use Status: Current everyday Tobacco user service: No Meds Allergies Allergy/AdvReac Type Severity Reaction Status Date / Time sertraline [From Zoloft] Allergy Unknown Verified 12/14/24 16:10 Active Medications: Current Medications Acetaminophen (Acetaminophen Supp 650 Mg Supp.Rect) 650 mg CO Q6H PRN PRN Reason: Pain, Mild 1-3,fever,headache Last Admin: 12/17/24 20:49 Dose: 650 mg Enoxaparin Sodium (Enoxaparin Sodium 40 Mg/0.4 Ml Syringe) 40 mg SUBCUT Q24H VLADIMIR Last Admin: 12/15/24 20:49 Dose: 40 mg Piperacillin Sod/Tazobactam (Sod 4.5 gm/ Sodium Chloride) 100 mls @ 200 mls/hr IV Q6H [facility] Last Infusion: 12/19/24 12:24 Dose: Infused Dextrose/Lactated Ringer's (D5lr) 1,000 mls @ 100 mls/hr IVCONT .Q10H VLADIMIR Last Infusion: 12/19/24 04:20 Dose: 100 mls/hr Lorazepam (Lorazepam 2 Mg/Ml Vial) 1 mg IVPUSH Q6H VLADIMIR Last Admin: 12/19/24 11:22 Dose: 1 mg Nicotine (Nicotine 21 Mg Patch.Td24) 21 mg TRANSDERMA DAILY [facility] Last Admin: 12/19/24 11:22 Dose: 21 mg Ondansetron HCl (Ondansetron Hcl 4 Mg/2 Ml Vial) 4 mg IVPUSH Q8H PRN PRN Reason: Nausea and Vomiting Home Medications ?Medication ?Instructions ?Recorded ?Confirmed ?Last Taken ?Type ibuprofen 600 mg tablet 600 mg PO TID PRN Pain 12/15/24 12/15/24 Unknown History lamotrigine 25 mg tablet 50 mg PO BID 12/15/24 12/15/24 Unknown History lorazepam 0.5 mg tablet 0.5 mg PO BID 12/15/24 12/15/24 Unknown History olanzapine 15 mg tablet 30 mg PO BEDTIME 12/15/24 12/15/24 Unknown History propranolol 20 mg tablet 20 mg PO TID 12/15/24 12/15/24 Unknown History quetiapine 200 mg tablet 200 mg PO TID 12/15/24 12/15/24 Unknown History Exam Height,Weight and Vital Signs: Height 6 ft Weight 99.79 kg Last Vital Signs Temp 97.9 F 12/19/24 11:00 Pulse 79 12/19/24 11:00 Resp 20 12/19/24 11:00 BP 168/100 H 12/19/24 11:00 Pulse Ox 93 12/19/24 11:00 O2 Del Method Room Air 12/19/24 11:00 O2 Flow Rate 2 12/18/24 19:00 Pertinent Lab Results Pertinent Lab Results: Laboratory Tests 12/14/24 12/14/24 12/14/24 17:09 17:10 17:11 WBC RBC Hgb Hct MCV MCH MCHC RDW Plt Count MPV Immature Gran % (Auto) Neut % (Auto) Lymph % (Auto) [place] % (Auto) Eos % (Auto) Baso % (Auto) Lymph # (Auto) [place] # (Auto) Eos # (Auto) Baso # (Auto) Abs Immat Gran (auto) Absolute Neuts (auto) Absolute Nucleated RBC Nucleated RBC % (auto) Hold Purple Top PT 13.0 H INR 1.1 D-Dimer High Sensitivty < 150 VBG pH VBG pCO2 VBG pO2 VBG HCO3 VBG O2 Saturation VBG Base Excess Sodium Potassium Chloride Carbon Dioxide Anion Gap BUN Creatinine Estim Creat Clear Calc Estimated GFR POC Glucose Random Glucose Osmolality 303 Lactic Acid Calcium Magnesium Total Bilirubin Direct Bilirubin AST ALT Alkaline Phosphatase Ammonia Total Creatine Kinase Troponin I High Sens 28.6 C-Reactive Protein B-Natriuretic Peptide Total Protein Albumin Lipase TSH Hold Green Top See Note Urine Color Urine Appearance Urine pH Ur Specific [place] Urine Protein Urine Glucose (UA) Urine Ketones Urine Blood Urine Nitrite Ur Leukocyte Esterase CSF Tube Number CSF Volume CSF Appearance CSF Color CSF WBC CSF RBC CSF Neutrophils CSF Lymphocytes CSF Monocytes % CSF Appearance (b) CSF Total Protein CSF C.neoform/gat PCR CSF CMV DNA (PCR) CSF Enterovirus (PCR) CSF E. coli K1 (PCR) CSF H. influenzae (PCR) CSF HSV I (PCR) CSF HSV II (PCR) CSF HHV 6 (PCR) CSF L.monocytogenes PCR CSF N. meningitidis PCR CSF Parechovirus (PCR) CSF S. agalactiae (PCR) CSF S. pneumoniae (PCR) CSF VZV (PCR) Nasal Screen MRSA (PCR) Nasal S. aureus Screen Nasal MRSA/S.aureus Interp Salicylates < 5.0 L Urine Opiates Screen Ur Buprenorphine Scrn Ur Oxycodone Screen Urine Methadone Screen Urine Fentanyl Screen Acetaminophen < 3 Ur Barbiturates Screen Ur Phencyclidine Scrn Ur Amphetamines Screen U Benzodiazepines Scrn Urine Cocaine Screen U Marijuana (THC) Screen Ethyl Alcohol Influenza Type A (PCR) NEGATIVE Influenza Type B (PCR) NEGATIVE RSV RNA Qual (PCR) NEGATIVE SARS-CoV-2 RNA (RT-PCR) NEGATIVE 12/14/24 12/14/24 12/14/24 17:12 17:16 17:19 WBC 16.9 H RBC 5.52 Hgb 18.2 H Hct 49.3 MCV 89.3 MCH 33.0 MCHC 36.9 H RDW 12.1 Plt Count 256 MPV 10.7 Immature Gran % (Auto) 0.4 Neut % (Auto) 81.6 H Lymph % (Auto) 12.1 L [place] % (Auto) 5.6 Eos % (Auto) 0.1 Baso % (Auto) 0.2 Lymph # (Auto) 2.1 [place] # (Auto) 0.9 Eos # (Auto) 0.0 Baso # (Auto) 0.0 Abs Immat Gran (auto) 0.06 H Absolute Neuts (auto) 13.8 H Absolute Nucleated RBC 0.000 Nucleated RBC % (auto) 0.0 Hold Purple Top SEE NOTE PT INR D-Dimer High Sensitivty VBG pH 7.38 VBG pCO2 31 VBG pO2 81 VBG HCO3 19 L VBG O2 Saturation 96.0 VBG Base Excess -4.5 Sodium 144 Potassium 4.6 Chloride 109 H Carbon Dioxide 20 L Anion Gap 20 BUN 25 H Creatinine 1.24 Estim Creat Clear Calc 100.7 Estimated GFR > 60 POC Glucose Random Glucose 113 Osmolality Lactic Acid 1.0 Calcium 9.7 Magnesium 2.5 Total Bilirubin 1.0 Direct Bilirubin 0.4 AST 41 H ALT 36 Alkaline Phosphatase 85 Ammonia 49 Total Creatine Kinase 518 H Troponin I High Sens C-Reactive Protein 1.48 H B-Natriuretic Peptide < 10 Total Protein 7.9 Albumin 4.8 Lipase 13 TSH 0.66 Hold Green Top Urine Color Urine Appearance Urine pH Ur Specific [place] Urine Protein Urine Glucose (UA) Urine Ketones Urine Blood Urine Nitrite Ur Leukocyte Esterase CSF Tube Number CSF Volume CSF Appearance CSF Color CSF WBC CSF RBC CSF Neutrophils CSF Lymphocytes CSF Monocytes % CSF Appearance (b) CSF Total Protein CSF C.neoform/gat PCR CSF CMV DNA (PCR) CSF Enterovirus (PCR) CSF E. coli K1 (PCR) CSF H. influenzae (PCR) CSF HSV I (PCR) CSF HSV II (PCR) CSF HHV 6 (PCR) CSF L.monocytogenes PCR CSF N. meningitidis PCR CSF Parechovirus (PCR) CSF S. agalactiae (PCR) CSF S. pneumoniae (PCR) CSF VZV (PCR) Nasal Screen MRSA (PCR) Nasal S. aureus Screen Nasal MRSA/S.aureus Interp Salicylates Urine Opiates Screen Ur Buprenorphine Scrn Ur Oxycodone Screen Urine Methadone Screen Urine Fentanyl Screen Acetaminophen Ur Barbiturates Screen Ur Phencyclidine Scrn Ur Amphetamines Screen U Benzodiazepines Scrn Urine Cocaine Screen U Marijuana (THC) Screen Ethyl Alcohol < 10 Influenza Type A (PCR) Influenza Type B (PCR) RSV RNA Qual (PCR) SARS-CoV-2 RNA (RT-PCR) 12/14/24 12/14/24 12/15/24 20:36 22:26 17:26 WBC 13.5 H RBC 4.61 Hgb 14.8 Hct 42.7 MCV 92.6 MCH 32.1 MCHC 34.7 RDW 12.3 Plt Count 178 D MPV 10.7 Immature Gran % (Auto) 0.4 Neut % (Auto) 77.9 H Lymph % (Auto) 15.2 L [place] % (Auto) 6.2 Eos % (Auto) 0.1 Baso % (Auto) 0.2 Lymph # (Auto) 2.1 [place] # (Auto) 0.8 Eos # (Auto) 0.0 Baso # (Auto) 0.0 Abs Immat Gran (auto) 0.06 H Absolute Neuts (auto) 10.5 H Absolute Nucleated RBC 0.000 Nucleated RBC % (auto) 0.0 Hold Purple Top PT INR D-Dimer High Sensitivty VBG pH VBG pCO2 VBG pO2 VBG HCO3 VBG O2 Saturation VBG Base Excess Sodium 141 Potassium 3.4 D Chloride 108 Carbon Dioxide 27 Anion Gap 9 L BUN 13 Creatinine 0.85 Estim Creat Clear Calc 146.9 Estimated GFR > 60 POC Glucose Random Glucose 166 H Osmolality Lactic Acid Calcium 8.4 D Magnesium Total Bilirubin 1.0 Direct Bilirubin AST 32 ALT 22 Alkaline Phosphatase 66 Ammonia Total Creatine Kinase 416 H Troponin I High Sens 13.5 D C-Reactive Protein 3.76 H B-Natriuretic Peptide Total Protein 6.0 L Albumin 3.7 Lipase TSH Hold Green Top Urine Color Yellow Urine Appearance Clear Urine pH 6.0 Ur Specific [place] >= 1.030 H Urine Protein Trace Urine Glucose (UA) Negative Urine Ketones 80 Urine Blood Negative Urine Nitrite Negative Ur Leukocyte Esterase Negative CSF Tube Number CSF Volume CSF Appearance CSF Color CSF WBC CSF RBC CSF Neutrophils CSF Lymphocytes CSF Monocytes % CSF Appearance (b) CSF Total Protein CSF C.neoform/gat PCR CSF CMV DNA (PCR) CSF Enterovirus (PCR) CSF E. coli K1 (PCR) CSF H. influenzae (PCR) CSF HSV I (PCR) CSF HSV II (PCR) CSF HHV 6 (PCR) CSF L.monocytogenes PCR CSF N. meningitidis PCR CSF Parechovirus (PCR) CSF S. agalactiae (PCR) CSF S. pneumoniae (PCR) CSF VZV (PCR) Nasal Screen MRSA (PCR) Nasal S. aureus Screen Nasal MRSA/S.aureus Interp Salicylates Urine Opiates Screen Not Detected Ur Buprenorphine Scrn Not Detected Ur Oxycodone Screen Not Detected Urine Methadone Screen Not Detected Urine Fentanyl Screen Not Detected Acetaminophen Ur Barbiturates Screen Not Detected Ur Phencyclidine Scrn Not Detected Ur Amphetamines Screen Not Detected U Benzodiazepines Scrn POSITIVE H Urine Cocaine Screen Not Detected U Marijuana (THC) Screen Not Detected Ethyl Alcohol Influenza Type A (PCR) Influenza Type B (PCR) RSV RNA Qual (PCR) SARS-CoV-2 RNA (RT-PCR) 12/15/24 12/15/24 12/15/24 19:29 19:47 23:06 WBC RBC Hgb Hct MCV MCH MCHC RDW Plt Count MPV Immature Gran % (Auto) Neut % (Auto) Lymph % (Auto) [place] % (Auto) Eos % (Auto) Baso % (Auto) Lymph # (Auto) [place] # (Auto) Eos # (Auto) Baso # (Auto) Abs Immat Gran (auto) Absolute Neuts (auto) Absolute Nucleated RBC Nucleated RBC % (auto) Hold Purple Top PT INR D-Dimer High Sensitivty VBG pH VBG pCO2 VBG pO2 VBG HCO3 VBG O2 Saturation VBG Base Excess Sodium Potassium Chloride Carbon Dioxide Anion Gap BUN Creatinine Estim Creat Clear Calc Estimated GFR POC Glucose Random Glucose Osmolality Lactic Acid 1.3 1.3 Calcium Magnesium Total Bilirubin Direct Bilirubin AST ALT Alkaline Phosphatase Ammonia Total Creatine Kinase Troponin I High Sens C-Reactive Protein B-Natriuretic Peptide Total Protein Albumin Lipase TSH Hold Green Top Urine Color Urine Appearance Urine pH Ur Specific [place] Urine Protein Urine Glucose (UA) Urine Ketones Urine Blood Urine Nitrite Ur Leukocyte Esterase CSF Tube Number CSF Volume CSF Appearance CSF Color CSF WBC CSF RBC CSF Neutrophils CSF Lymphocytes CSF Monocytes % CSF Appearance (b) CSF Total Protein CSF C.neoform/gat PCR CSF CMV DNA (PCR) CSF Enterovirus (PCR) CSF E. coli K1 (PCR) CSF H. influenzae (PCR) CSF HSV I (PCR) CSF HSV II (PCR) CSF HHV 6 (PCR) CSF L.monocytogenes PCR CSF N. meningitidis PCR CSF Parechovirus (PCR) CSF S. agalactiae (PCR) CSF S. pneumoniae (PCR) CSF VZV (PCR) Nasal Screen MRSA (PCR) NEGATIVE Nasal S. aureus Screen NEGATIVE Nasal MRSA/S.aureus Interp SEE NOTE Salicylates Urine Opiates Screen Ur Buprenorphine Scrn Ur Oxycodone Screen Urine Methadone Screen Urine Fentanyl Screen Acetaminophen Ur Barbiturates Screen Ur Phencyclidine Scrn Ur Amphetamines Screen U Benzodiazepines Scrn Urine Cocaine Screen U Marijuana (THC) Screen Ethyl Alcohol Influenza Type A (PCR) Influenza Type B (PCR) RSV RNA Qual (PCR) SARS-CoV-2 RNA (RT-PCR) 12/16/24 12/16/24 12/16/24 04:47 15:44 15:44 WBC 11.3 H RBC 4.36 L Hgb 14.5 Hct 39.6 L MCV 90.8 MCH 33.3 H MCHC 36.6 H RDW 12.3 Plt Count 176 MPV 11.3 Immature Gran % (Auto) 0.4 Neut % (Auto) 79.3 H Lymph % (Auto) 13.0 L [place] % (Auto) 6.9 Eos % (Auto) 0.1 Baso % (Auto) 0.3 Lymph # (Auto) 1.5 [place] # (Auto) 0.8 Eos # (Auto) 0.0 Baso # (Auto) 0.0 Abs Immat Gran (auto) 0.04 H Absolute Neuts (auto) 9.0 H Absolute Nucleated RBC 0.000 Nucleated RBC % (auto) 0.0 Hold Purple Top PT INR D-Dimer High Sensitivty VBG pH VBG pCO2 VBG pO2 VBG HCO3 VBG O2 Saturation VBG Base Excess Sodium 141 Potassium 3.7 Chloride 109 H Carbon Dioxide 23 Anion Gap 13 BUN 8 L Creatinine 0.74 Estim Creat Clear Calc 168.7 Estimated GFR > 60 POC Glucose Random Glucose 135 H Osmolality Lactic Acid Calcium 8.5 Magnesium Total Bilirubin Direct Bilirubin AST ALT Alkaline Phosphatase Ammonia Total Creatine Kinase Troponin I High Sens C-Reactive Protein B-Natriuretic Peptide Total Protein Albumin Lipase TSH Hold Green Top Urine Color Urine Appearance Urine pH Ur Specific [place] Urine Protein Urine Glucose (UA) Urine Ketones Urine Blood Urine Nitrite Ur Leukocyte Esterase CSF Tube Number 1 4 CSF Volume 3.0 CSF Appearance HAZY CSF Color PINK CSF WBC 11 H* CSF RBC 2962 CSF Neutrophils 68 CSF Lymphocytes 30 CSF Monocytes % 2 CSF Appearance (b) Clear, Colorless CSF Total Protein 29.3 CSF C.neoform/gat PCR Not Detected CSF CMV DNA (PCR) Not Detected CSF Enterovirus (PCR) Not Detected CSF E. coli K1 (PCR) Not Detected CSF H. influenzae (PCR) Not Detected CSF HSV I (PCR) Not Detected CSF HSV II (PCR) Not Detected CSF HHV 6 (PCR) Not Detected CSF L.monocytogenes PCR Not Detected CSF N. meningitidis PCR Not Detected CSF Parechovirus (PCR) Not Detected CSF S. agalactiae (PCR) Not Detected CSF S. pneumoniae (PCR) Not Detected CSF VZV (PCR) Not Detected Nasal Screen MRSA (PCR) Nasal S. aureus Screen Nasal MRSA/S.aureus Interp Salicylates Urine Opiates Screen Ur Buprenorphine Scrn Ur Oxycodone Screen Urine Methadone Screen Urine Fentanyl Screen Acetaminophen Ur Barbiturates Screen Ur Phencyclidine Scrn Ur Amphetamines Screen U Benzodiazepines Scrn Urine Cocaine Screen U Marijuana (THC) Screen Ethyl Alcohol Influenza Type A (PCR) Influenza Type B (PCR) RSV RNA Qual (PCR) SARS-CoV-2 RNA (RT-PCR) 12/17/24 12/17/24 12/17/24 05:44 06:30 21:57 WBC 8.6 RBC 4.72 Hgb 15.5 Hct 42.6 MCV 90.3 MCH 32.8 MCHC 36.4 H RDW 11.9 Plt Count 173 MPV 11.7 Immature Gran % (Auto) Neut % (Auto) Lymph % (Auto) [place] % (Auto) Eos % (Auto) Baso % (Auto) Lymph # (Auto) [place] # (Auto) Eos # (Auto) Baso # (Auto) Abs Immat Gran (auto) Absolute Neuts (auto) Absolute Nucleated RBC 0.000 Nucleated RBC % (auto) 0.0 Hold Purple Top PT INR D-Dimer High Sensitivty VBG pH VBG pCO2 VBG pO2 VBG HCO3 VBG O2 Saturation VBG Base Excess Sodium 141 Potassium 3.7 Chloride 109 H Carbon Dioxide 23 Anion Gap 13 BUN 6 L Creatinine 0.75 Estim Creat Clear Calc 166.5 Estimated GFR > 60 POC Glucose 83 74 Random Glucose 83 Osmolality Lactic Acid Calcium 8.8 Magnesium Total Bilirubin Direct Bilirubin AST ALT Alkaline Phosphatase Ammonia Total Creatine Kinase Troponin I High Sens C-Reactive Protein B-Natriuretic Peptide Total Protein Albumin Lipase TSH Hold Green Top Urine Color Urine Appearance Urine pH Ur Specific [place] Urine Protein Urine Glucose (UA) Urine Ketones Urine Blood Urine Nitrite Ur Leukocyte Esterase CSF Tube Number CSF Volume CSF Appearance CSF Color CSF WBC CSF RBC CSF Neutrophils CSF Lymphocytes CSF Monocytes % CSF Appearance (b) CSF Total Protein CSF C.neoform/gat PCR CSF CMV DNA (PCR) CSF Enterovirus (PCR) CSF E. coli K1 (PCR) CSF H. influenzae (PCR) CSF HSV I (PCR) CSF HSV II (PCR) CSF HHV 6 (PCR) CSF L.monocytogenes PCR CSF N. meningitidis PCR CSF Parechovirus (PCR) CSF S. agalactiae (PCR) CSF S. pneumoniae (PCR) CSF VZV (PCR) Nasal Screen MRSA (PCR) Nasal S. aureus Screen Nasal MRSA/S.aureus Interp Salicylates Urine Opiates Screen Ur Buprenorphine Scrn Ur Oxycodone Screen Urine Methadone Screen Urine Fentanyl Screen Acetaminophen Ur Barbiturates Screen Ur Phencyclidine Scrn Ur Amphetamines Screen U Benzodiazepines Scrn Urine Cocaine Screen U Marijuana (THC) Screen Ethyl Alcohol Influenza Type A (PCR) Influenza Type B (PCR) RSV RNA Qual (PCR) SARS-CoV-2 RNA (RT-PCR) 12/18/24 12/18/24 12/18/24 04:11 06:58 07:28 WBC 8.4 RBC 4.53 L Hgb 14.9 Hct 40.1 L MCV 88.5 MCH 32.9 MCHC 37.2 H RDW 11.9 Plt Count 182 MPV 10.8 Immature Gran % (Auto) 0.6 H Neut % (Auto) 75.8 H Lymph % (Auto) 17.2 L [place] % (Auto) 5.4 Eos % (Auto) 0.6 Baso % (Auto) 0.4 Lymph # (Auto) 1.4 [place] # (Auto) 0.5 Eos # (Auto) 0.1 Baso # (Auto) 0.0 Abs Immat Gran (auto) 0.05 H Absolute Neuts (auto) 6.4 Absolute Nucleated RBC 0.000 Nucleated RBC % (auto) 0.0 Hold Purple Top PT INR D-Dimer High Sensitivty VBG pH VBG pCO2 VBG pO2 VBG HCO3 VBG O2 Saturation VBG Base Excess Sodium 141 Potassium 3.6 Chloride 108 Carbon Dioxide 21 L Anion Gap 16 BUN 9 Creatinine 0.69 Estim Creat Clear Calc 181.0 Estimated GFR > 60 POC Glucose 85 93 Random Glucose 80 Osmolality Lactic Acid Calcium 8.8 Magnesium Total Bilirubin Direct Bilirubin AST ALT Alkaline Phosphatase Ammonia Total Creatine Kinase Troponin I High Sens C-Reactive Protein B-Natriuretic Peptide Total Protein Albumin Lipase TSH Hold Green Top Urine Color Urine Appearance Urine pH Ur Specific [place] Urine Protein Urine Glucose (UA) Urine Ketones Urine Blood Urine Nitrite Ur Leukocyte Esterase CSF Tube Number CSF Volume CSF Appearance CSF Color CSF WBC CSF RBC CSF Neutrophils CSF Lymphocytes CSF Monocytes % CSF Appearance (b) CSF Total Protein CSF C.neoform/gat PCR CSF CMV DNA (PCR) CSF Enterovirus (PCR) CSF E. coli K1 (PCR) CSF H. influenzae (PCR) CSF HSV I (PCR) CSF HSV II (PCR) CSF HHV 6 (PCR) CSF L.monocytogenes PCR CSF N. meningitidis PCR CSF Parechovirus (PCR) CSF S. agalactiae (PCR) CSF S. pneumoniae (PCR) CSF VZV (PCR) Nasal Screen MRSA (PCR) Nasal S. aureus Screen Nasal MRSA/S.aureus Interp Salicylates Urine Opiates Screen Ur Buprenorphine Scrn Ur Oxycodone Screen Urine Methadone Screen Urine Fentanyl Screen Acetaminophen Ur Barbiturates Screen Ur Phencyclidine Scrn Ur Amphetamines Screen U Benzodiazepines Scrn Urine Cocaine Screen U Marijuana (THC) Screen Ethyl Alcohol Influenza Type A (PCR) Influenza Type B (PCR) RSV RNA Qual (PCR) SARS-CoV-2 RNA (RT-PCR) 12/18/24 12/18/24 12/19/24 14:37 20:05 03:47 WBC RBC Hgb Hct MCV MCH MCHC RDW Plt Count MPV Immature Gran % (Auto) Neut % (Auto) Lymph % (Auto) [place] % (Auto) Eos % (Auto) Baso % (Auto) Lymph # (Auto) [place] # (Auto) Eos # (Auto) Baso # (Auto) Abs Immat Gran (auto) Absolute Neuts (auto) Absolute Nucleated RBC Nucleated RBC % (auto) Hold Purple Top PT INR D-Dimer High Sensitivty VBG pH VBG pCO2 VBG pO2 VBG HCO3 VBG O2 Saturation VBG Base Excess Sodium Potassium Chloride Carbon Dioxide Anion Gap BUN Creatinine Estim Creat Clear Calc Estimated GFR POC Glucose 89 116 H 123 H Random Glucose Osmolality Lactic Acid Calcium Magnesium Total Bilirubin Direct Bilirubin AST ALT Alkaline Phosphatase Ammonia Total Creatine Kinase Troponin I High Sens C-Reactive Protein B-Natriuretic Peptide Total Protein Albumin Lipase TSH Hold Green Top Urine Color Urine Appearance Urine pH Ur Specific [place] Urine Protein Urine Glucose (UA) Urine Ketones Urine Blood Urine Nitrite Ur Leukocyte Esterase CSF Tube Number CSF Volume CSF Appearance CSF Color CSF WBC CSF RBC CSF Neutrophils CSF Lymphocytes CSF Monocytes % CSF Appearance (b) CSF Total Protein CSF C.neoform/gat PCR CSF CMV DNA (PCR) CSF Enterovirus (PCR) CSF E. coli K1 (PCR) CSF H. influenzae (PCR) CSF HSV I (PCR) CSF HSV II (PCR) CSF HHV 6 (PCR) CSF L.monocytogenes PCR CSF N. meningitidis PCR CSF Parechovirus (PCR) CSF S. agalactiae (PCR) CSF S. pneumoniae (PCR) CSF VZV (PCR) Nasal Screen MRSA (PCR) Nasal S. aureus Screen Nasal MRSA/S.aureus Interp Salicylates Urine Opiates Screen Ur Buprenorphine Scrn Ur Oxycodone Screen Urine Methadone Screen Urine Fentanyl Screen Acetaminophen Ur Barbiturates Screen Ur Phencyclidine Scrn Ur Amphetamines Screen U Benzodiazepines Scrn Urine Cocaine Screen U Marijuana (THC) Screen Ethyl Alcohol Influenza Type A (PCR) Influenza Type B (PCR) RSV RNA Qual (PCR) SARS-CoV-2 RNA (RT-PCR) 12/19/24 12/19/24 07:19 09:05 WBC 7.7 RBC 4.53 L Hgb 14.7 Hct 39.3 L MCV 86.8 MCH 32.5 MCHC 37.4 H RDW 11.8 Plt Count 206 MPV 10.6 Immature Gran % (Auto) 0.4 Neut % (Auto) 63.7 Lymph % (Auto) 26.3 [place] % (Auto) 8.3 Eos % (Auto) 1.0 Baso % (Auto) 0.3 Lymph # (Auto) 2.0 [place] # (Auto) 0.6 Eos # (Auto) 0.1 Baso # (Auto) 0.0 Abs Immat Gran (auto) 0.03 Absolute Neuts (auto) 4.9 Absolute Nucleated RBC 0.000 Nucleated RBC % (auto) 0.0 Hold Purple Top PT INR D-Dimer High Sensitivty VBG pH VBG pCO2 VBG pO2 VBG HCO3 VBG O2 Saturation VBG Base Excess Sodium 140 Potassium 3.6 Chloride 107 Carbon Dioxide 22 Anion Gap 15 BUN 8 L Creatinine 0.73 Estim Creat Clear Calc 171.1 Estimated GFR > 60 POC Glucose 115 Random Glucose 101 Osmolality Lactic Acid Calcium 8.7 Magnesium Total Bilirubin 1.0 Direct Bilirubin 0.4 AST 28 ALT 13 Alkaline Phosphatase 58 Ammonia Total Creatine Kinase 234 H Troponin I High Sens C-Reactive Protein B-Natriuretic Peptide Total Protein 6.3 L Albumin 3.7 Lipase TSH Hold Green Top Urine Color Urine Appearance Urine pH Ur Specific [place] Urine Protein Urine Glucose (UA) Urine Ketones Urine Blood Urine Nitrite Ur Leukocyte Esterase CSF Tube Number CSF Volume CSF Appearance CSF Color CSF WBC CSF RBC CSF Neutrophils CSF Lymphocytes CSF Monocytes % CSF Appearance (b) CSF Total Protein CSF C.neoform/gat PCR CSF CMV DNA (PCR) CSF Enterovirus (PCR) CSF E. coli K1 (PCR) CSF H. influenzae (PCR) CSF HSV I (PCR) CSF HSV II (PCR) CSF HHV 6 (PCR) CSF L.monocytogenes PCR CSF N. meningitidis PCR CSF Parechovirus (PCR) CSF S. agalactiae (PCR) CSF S. pneumoniae (PCR) CSF VZV (PCR) Nasal Screen MRSA (PCR) Nasal S. aureus Screen Nasal MRSA/S.aureus Interp Salicylates Urine Opiates Screen Ur Buprenorphine Scrn Ur Oxycodone Screen Urine Methadone Screen Urine Fentanyl Screen Acetaminophen Ur Barbiturates Screen Ur Phencyclidine Scrn Ur Amphetamines Screen U Benzodiazepines Scrn Urine Cocaine Screen U Marijuana (THC) Screen Ethyl Alcohol Influenza Type A (PCR) Influenza Type B (PCR) RSV RNA Qual (PCR) SARS-CoV-2 RNA (RT-PCR) Airway Mallampati Class: Patient Non-Cooperative Heart: rrr Lungs: rhonchi Assessment and Plan Assessment Anesthesia Assessment: Anesthesia Plan Discussed and Chart Reviewed Final Anesthetic Review Family History of Problems with Anesthesia: No History of Problems with Anesthesia: No NPO: Yes ASA Class: III Final Preanesthetic Review: No Changes in Pt Med Stat, Meds/Allgs Chart Reviewed, Consent Obtained/Reviewed and Anes Risks/Benef Reviewed Patient Risk: Intermediate Procedure Risk: Low Anesthetic Plan Anesthetic Plan: GA Disposition: Standard PACU
--- NOTE | 2024-12-19 14:59 | MHC.SHP ---
Pre-Procedural Eval Section A - 24 Hr Update-Section A only Date of Service: 12/19/24 The patient is an INPATIENT: Yes Changes since office visit: Yes Cold of Flu in the past 2 weeks, Yes New Medical Problems and Yes Changes in Medication; No Patient answered all questions The patient has been examined within 24 hours of the surgical procedure. The History & Physical has been completed within 30 days and I have reviewed it.: Yes Section B - Complete if H&P > 30 days Chief Complaint: pneumonia, hypoxia, sepsis Allergies: Allergies Allergy/AdvReac Type Severity Reaction Status Date / Time sertraline [From Zoloft] Allergy Unknown Verified 12/14/24 16:10 Plan I have reviewed the history and physical and performed a pertinent physical examination on my patient. No changes have occurred unless specified. Time Spent With Patient Time: Total time managing care of this patient today ____ minutes.
--- NOTE | 2024-12-19 15:01 | HO.ECTPROC ---
ECT Procedure Note Diagnosis/Treatment Date of Service: 12/19/24 Diagnosis: Bipolar disorder and Catatonia Current Treatment Number: 1 Treatment: Series Interval Clinical Notes: Pt adm to med floor had pneumonia recent dx catatonia seen by neurology who agreed with dx. Pt s/p LP eeg w/u essentially neg. Informed consent on urgent basis obtained from reviewed risks benefits . Tx rtlf 56 s sz. required 20 esmolol post given 2 versed post Time: Total time managing care of this patient today __40__ minutes. ECT Settings Device: THYMATRON DGx Electrode Placement: Rt temporal/ Lt frontal Program/Pulse Width: 0.50 Energy Percent: 100 Seizure Duration By EEG (in seconds): 56 Medications Administration General Anesthetic: Etomidate (12) Muscle Relaxant: Succinylcholine (80) Ancillary Medications Cardiovascular Medications: Esmolol (20) Airway Management Airway Management: Bag Mask Ventilation Treatment Recommendations Notes: inc succ 100 mg monitor response to ect perhaps try 0.25 program next tx
[2024-12-19 16:39] LABS: Lamotrigine Lamictal 1.8 mcg/mL (2.5-15.0)
[2024-12-19 16:43] LABS: Glucose, Whole Blood 123 mg/dL (60-115)
--- NOTE | 2024-12-19 17:04 | PM.PSYCN ---
History of Present Illness Date of Service: 12/19/2024 Chief Complaint: pneumonia, hypoxia, sepsis Discussed with referring provider: Yes Sources of Information: patient interviewed, chart reviewed and crisis/core team assessment reviewed HPI Narrative: Pt had ECT 2 hrs ago. Back to his room. Continues to present as mute, staring, not following commands. Discussed with attending Jennie and Dr. saucedo- patient has not had any oral intake, currently on IV D5W. Uncertain at this point when pt may start eating on his own as he continues ECT tx. Past Psychiatric History: Inpt: [facility]at 6 years ago. Past medication trials: olanzapine, ativan 2mg/daily [facility] Medical History Bipolar I disorder with catatonia Diagnostics Vital Signs (24Hr): Vital Signs - 24 hr 12/18/24 19:00 12/18/24 23:00 12/19/24 03:00 Temperature 98.2 F 97.6 F 98.0 F Pulse Rate 75 78 67 Respiratory Rate 18 18 18 Blood Pressure 157/80 H 138/84 135/83 Pulse Oximetry 94 94 93 Oxygen Delivery Method Nasal Cannula Room Air Room Air Oxygen Flow Rate 2 12/19/24 07:00 12/19/24 11:00 12/19/24 15:00 Temperature 98.2 F 97.9 F 99.1 F Pulse Rate 84 79 103 H Respiratory Rate 14 20 17 Blood Pressure 126/88 168/100 H 158/109 H Pulse Oximetry 94 93 96 Oxygen Delivery Method Room Air Room Air Simple Mask Oxygen Flow Rate 6 12/19/24 15:05 12/19/24 15:10 12/19/24 15:15 Temperature Pulse Rate 103 H 93 93 Respiratory Rate 17 17 17 Blood Pressure 158/103 H 157/102 H 135/92 H Pulse Oximetry 96 96 96 Oxygen Delivery Method Simple Mask Simple Mask Simple Mask Oxygen Flow Rate 6 6 6 12/19/24 15:25 12/19/24 15:41 12/19/24 16:47 Temperature 97.8 F 97.8 F Pulse Rate 93 98 79 Respiratory Rate 17 20 18 Blood Pressure 152/108 H 150/106 H 146/80 H Pulse Oximetry 96 94 91 L Oxygen Delivery Method Simple Mask Room Air Room Air Oxygen Flow Rate 6 BMI result Body Mass Index 29.8 Labs 12/19/24 07:19 12/19/24 07:19 Labs: Laboratory Results - last 48 hr 12/14/24 12/17/24 12/18/24 17:11 21:57 04:11 WBC RBC Hgb Hct MCV MCH MCHC RDW Plt Count MPV Immature Gran % (Auto) Neut % (Auto) Lymph % (Auto) [place] % (Auto) Eos % (Auto) Baso % (Auto) Lymph # (Auto) [place] # (Auto) Eos # (Auto) Baso # (Auto) Abs Immat Gran (auto) Absolute Neuts (auto) Absolute Nucleated RBC Nucleated RBC % (auto) Sodium Potassium Chloride Carbon Dioxide Anion Gap BUN Creatinine Estim Creat Clear Calc Estimated GFR POC Glucose 74 85 Random Glucose Calcium Total Bilirubin Direct Bilirubin AST ALT Alkaline Phosphatase Total Creatine Kinase Total Protein Albumin Lamotrigine 1.8 L 12/18/24 12/18/24 12/18/24 06:58 07:28 14:37 WBC 8.4 RBC 4.53 L Hgb 14.9 Hct 40.1 L MCV 88.5 MCH 32.9 MCHC 37.2 H RDW 11.9 Plt Count 182 MPV 10.8 Immature Gran % (Auto) 0.6 H Neut % (Auto) 75.8 H Lymph % (Auto) 17.2 L [place] % (Auto) 5.4 Eos % (Auto) 0.6 Baso % (Auto) 0.4 Lymph # (Auto) 1.4 [place] # (Auto) 0.5 Eos # (Auto) 0.1 Baso # (Auto) 0.0 Abs Immat Gran (auto) 0.05 H Absolute Neuts (auto) 6.4 Absolute Nucleated RBC 0.000 Nucleated RBC % (auto) 0.0 Sodium 141 Potassium 3.6 Chloride 108 Carbon Dioxide 21 L Anion Gap 16 BUN 9 Creatinine 0.69 Estim Creat Clear Calc 181.0 Estimated GFR > 60 POC Glucose 93 89 Random Glucose 80 Calcium 8.8 Total Bilirubin Direct Bilirubin AST ALT Alkaline Phosphatase Total Creatine Kinase Total Protein Albumin Lamotrigine 12/18/24 12/19/24 12/19/24 20:05 03:47 07:19 WBC 7.7 RBC 4.53 L Hgb 14.7 Hct 39.3 L MCV 86.8 MCH 32.5 MCHC 37.4 H RDW 11.8 Plt Count 206 MPV 10.6 Immature Gran % (Auto) 0.4 Neut % (Auto) 63.7 Lymph % (Auto) 26.3 [place] % (Auto) 8.3 Eos % (Auto) 1.0 Baso % (Auto) 0.3 Lymph # (Auto) 2.0 [place] # (Auto) 0.6 Eos # (Auto) 0.1 Baso # (Auto) 0.0 Abs Immat Gran (auto) 0.03 Absolute Neuts (auto) 4.9 Absolute Nucleated RBC 0.000 Nucleated RBC % (auto) 0.0 Sodium 140 Potassium 3.6 Chloride 107 Carbon Dioxide 22 Anion Gap 15 BUN 8 L Creatinine 0.73 Estim Creat Clear Calc 171.1 Estimated GFR > 60 POC Glucose 116 H 123 H Random Glucose 101 Calcium 8.7 Total Bilirubin 1.0 Direct Bilirubin 0.4 AST 28 ALT 13 Alkaline Phosphatase 58 Total Creatine Kinase 234 H Total Protein 6.3 L Albumin 3.7 Lamotrigine 12/19/24 12/19/24 09:05 16:39 WBC RBC Hgb Hct MCV MCH MCHC RDW Plt Count MPV Immature Gran % (Auto) Neut % (Auto) Lymph % (Auto) [place] % (Auto) Eos % (Auto) Baso % (Auto) Lymph # (Auto) [place] # (Auto) Eos # (Auto) Baso # (Auto) Abs Immat Gran (auto) Absolute Neuts (auto) Absolute Nucleated RBC Nucleated RBC % (auto) Sodium Potassium Chloride Carbon Dioxide Anion Gap BUN Creatinine Estim Creat Clear Calc Estimated GFR POC Glucose 115 123 H Random Glucose Calcium Total Bilirubin Direct Bilirubin AST ALT Alkaline Phosphatase Total Creatine Kinase Total Protein Albumin Lamotrigine Imaging Radiology Impressions: ITS Impressions Fluoroscopy 12/16/24 15:33 IMPRESSION: Successful fluoroscopy-guided L4-5 lumbar puncture performed. CSF fluid collected was sent to lab as per referring physician's orders. Electronically signed by: Liam Olea MD 12/18/2024 12:41 PM EDT RP Brain MRI 12/17/24 16:03 IMPRESSION: No acute stroke/ischemia or acute brain abnormality. Electronically signed by: Lenard Quiroga MD 12/18/2024 07:19 AM EDT RP Mental Status Exam Mental Status Exam Narrative: Pt in bed, staring, mute, waxy flexibility. Medications Medications Current Medications Acetaminophen (Acetaminophen Supp 650 Mg Supp.Rect) [address] Q6H PRN PRN Reason: Pain, Mild 1-3,fever,headache Last Admin: 12/17/24 20:49 Dose: 650 mg Enoxaparin Sodium (Enoxaparin Sodium 40 Mg/0.4 Ml Syringe) 40 mg SUBCUT Q24H [facility] Last Admin: 12/15/24 20:49 Dose: 40 mg Piperacillin Sod/Tazobactam (Sod 4.5 gm/ Sodium Chloride) 100 mls @ 200 mls/hr IV Q6H [facility] Last Infusion: 12/19/24 12:24 Dose: Infused Dextrose/Lactated Ringer's (D5lr) 1,000 mls @ 100 mls/hr IVCONT .Q10H [facility] Last Infusion: 12/19/24 04:20 Dose: 100 mls/hr Lorazepam (Lorazepam 2 Mg/Ml Vial) 1 mg IVPUSH Q6H [facility] Last Admin: 12/19/24 11:22 Dose: 1 mg Nicotine (Nicotine 21 Mg Patch.Td24) 21 mg TRANSDERMA DAILY [facility] Last Admin: 12/19/24 11:22 Dose: 21 mg Ondansetron HCl (Ondansetron Hcl 4 Mg/2 Ml Vial) 4 mg IVPUSH Q8H PRN PRN Reason: Nausea and Vomiting Allergies Allergies Allergy/AdvReac Type Severity Reaction Status Date / Time sertraline [From Zoloft] Allergy Unknown Verified 12/14/24 16:10 Assessment & Plan Assessment & Plan (1) Catatonia: Status: Acute Code(s): F06.1 - Catatonic disorder due to known physiological condition Plan -continue ECT - consider consult for dietitian- He has not had any oral intake since admission to [facility]. He may need to nasoenteral tube feeding - he is not able to feed self at this time - DVT prophylaxis Total time managing care of this patient today ____ minutes.
[2024-12-19 20:00] LABS: Glucose, Whole Blood 101 mg/dL (60-115)
[2024-12-19] MEDS: Enoxaparin Sodium 40 MG/0.4 ML SYRINGE SUBCUT (21:26)
[2024-12-20] VITALS: BP 145/95; PULSE 98; RESP 17; TEMP 37.1; O2SAT 94
[2024-12-20] MEDS: Piperacillin Sodium/Tazobactam 4.5 GM in 0.9 % Sodium Chloride 100 ML IV ×4 (03:12→21:39)
[2024-12-20 03:46] VITALS: BP 140/90; PULSE 92; RESP 16; TEMP 36.5; O2SAT 96
[2024-12-20] MEDS: LORazepam 2 MG/ML VIAL 1 MG IVPUSH ×4 (03:53→21:39)
[2024-12-20 04:41] LABS: Glucose, Whole Blood 114 mg/dL (60-115)
[2024-12-20 07:05] LABS: MANUAL DIFF FLAG NO
[2024-12-20 07:07] LABS: Basophils Percent Auto 0.3 % (0-2); Eosinophils Absolute Auto 0.1 X10*3/uL (0.0-0.4); Eosinophils Percent Auto 1.3 % (0-4); Hematocrit 39.1 % (42.0-52.0); Hemoglobin 14.4 g/dl (14.0-18.0); Imm Gran Abs Auto 0.04 X10*3/uL (0.00-0.03); Imm Gran Pct Auto 0.4 % (0.0-0.4); Lymphocytes Absolute Auto 2.1 X10*3/uL (1.2-4.9); Lymphocytes Percent Auto 22.9 % (20-40); Mean Corpuscular HGB Conc 36.8 g/dl (31.0-36.0); Mean Corpuscular Hemoglobin 32.4 pg (27.0-33.0); Mean Corpuscular Volume 87.9 fL (80.0-98.0); Mean Platelet Volume 10.8 fL (9.4-12.4); Monocytes Absolute Auto 0.8 X10*3/uL (0.1-1.2); Monocytes Percent Auto 8.5 % (2-11); Neutrophils Percent Auto 66.6 % (45-73); Platelet Count 208 X10*3/uL (160-400); Red Blood Count 4.45 X10*6/uL (4.60-5.80); Red Cell Distribution Width 11.8 % (11.0-16.0)
[2024-12-20 07:30] LABS: Anion Gap 13 (12-20); Blood Urea Nitrogen 5 mg/dL (9-16); Calcium 8.7 mg/dL (8.4-10.2); Carbon Dioxide 23 mmol/L (22-29); Chloride 106 mmol/L (96-108); Creatinine Clr Calc Pharmacy 178.4; Estimated Glomerular Filt Rate > 60; Glucose Random 118 mg/dL (60-115); Sodium 139 mmol/L (135-145)
[2024-12-20 08:00] VITALS: BP 153/92; PULSE 87; RESP 16; TEMP 36.9; O2SAT 92
--- NOTE | 2024-12-20 08:18 | MHC.CLN ---
Addendum entered by Peggy Blackwell RPh 12/21/24 10:03: TRIGLYCERIDES ARE 166 ON 12/21. HOLDING ON STARTING LIPIDS UNTIL FULL CONSULT IS COMPLETE ON SUNDAY. Original Note: CONSULT FOR PPN PT IS DAY 6 WITH POOR PO R/T CATATONIA PPN TO START REVIEWED LABS DISCUSSED WITH PHAMACY PPN FOR TODAY 12/20/24 RECOMMEND PPN AT 60ML/HR TO PROVIDE 734KCALS, 144G DEXTROSE, 61G PROTEIN REPLETE LYTES NEEDED, CHECK TRIG LABS ALONG WITH MG, PHOS AND K+ 12/21/24 RECOMMEND INCREASING TO MAX GOAL RATE PPN 80ML/HR WITH 88G LIPIDS TO PROVIDE 1859 TOTAL KCALS (23KCALS/KG BASED ON IBW), 82G PROTEIN (1.0G/KG), 192G DEXTROSE REPLETE LYTES NEEDED FULL NUTRITION ASSESSMENT TO FOLLOW RD CAN BE REACHED VIA [employer] DURING OFF HOURS IF NEEDED
[2024-12-20] MEDS: Dextrose 5 % and Lactated Ring 1,000 ML 100 ML IVCONT (08:57)
[2024-12-20] MEDS: Nicotine 21 MG PATCH.TD24 TRANSDERMA (09:07)
[2024-12-20] MEDS: Potassium Chloride/H20 10 MEQ/100 ML PIGGYBACK 100 MEQ IV ×2 (09:07→10:42)
[2024-12-20 09:18] LABS: Albumin Level 3.6 g/dL (3.5-5.0); Magnesium 1.7 mg/dL (1.6-2.6); Phosphorus 2.7 mg/dL (2.7-4.5)
[2024-12-20 10:38] LABS: Glucose, Whole Blood 121 mg/dL (60-115)
[2024-12-20 11:22] VITALS: BP 138/102; PULSE 86; RESP 18; TEMP 36.9; O2SAT 95
--- NOTE | 2024-12-20 15:53 | P.PNIM_ITS ---
Subjective Subjective Date of Service: 12/20/24 Interval History: Seen and evaluated this morning more alert, hand shake but still non-verbal or following commands no fever reported no other events Review of Systems Review of Systems: Yes all other systems are reviewed and are negative Physical Exam 2 Vital Signs: Vital Signs: Last Vital Signs Temp 98.4 F 12/20/24 11:22 Pulse 86 12/20/24 11:22 Resp 18 12/20/24 11:22 BP 138/102 H 12/20/24 11:22 Pulse Ox 95 12/20/24 11:22 O2 Del Method Room Air 12/20/24 11:22 O2 Flow Rate 6 12/19/24 15:25 BMI result Body Mass Index 29.8 Const: Other: Constitutional : alert with stimulation but non verbal on intercative, not in distress Cardiovascular : no JVP, no lower extremity edema Respiratory : bilateral chest movement, not in resp distress Gastrointestinal: soft, lax, Non tender Skin : Warm, Dry Neurological : Alert & non-responsive verbally, not following commands , moving extremities Objective Data Active Medications Acetaminophen (Acetaminophen Supp 650 Mg Supp.Rect) 650 mg OR Q6H PRN PRN Reason: Pain, Mild 1-3,fever,headache Last Admin: 12/17/24 20:49 Dose: 650 mg Documented By: NOLAN Enoxaparin Sodium (Enoxaparin Sodium 40 Mg/0.4 Ml Syringe) 40 mg SUBCUT Q24H [facility] Last Admin: 12/19/24 21:26 Dose: 40 mg Documented By: ABEL Piperacillin Sod/Tazobactam (Sod 4.5 gm/ Sodium Chloride) 100 mls @ 200 mls/hr IV Q6H [facility] Last Infusion: 12/20/24 12:53 Dose: Infused Documented By: RICCIAV Dextrose/Lactated Ringer's (D5lr) 1,000 mls @ 100 mls/hr IVCONT .Q10H [facility] Last Admin: 12/20/24 08:57 Dose: 100 mls/hr Documented By: DOUBLEN Nutrition (Parenteral) (Parenteral Nutrition) 1,440 mls @ 60 mls/hr IV .Q24H VLADIMIR; Protocol Stop: 12/21/24 20:59 Lorazepam (Lorazepam 2 Mg/Ml Vial) 1 mg IVPUSH Q6H [facility] Last Admin: 12/20/24 10:42 Dose: 1 mg Documented By: MEDINA Nicotine (Nicotine 21 Mg Patch.Td24) 21 mg TRANSDERMA DAILY [facility] Last Admin: 12/20/24 09:07 Dose: 21 mg Documented By: EMDINA Ondansetron HCl (Ondansetron Hcl 4 Mg/2 Ml Vial) 4 mg IVPUSH Q8H PRN PRN Reason: Nausea and Vomiting Pharmacy Consult (Consult Rx Parenteral Nutrition Ordering) 1 each MISCELLANE DAILY PRN PRN Reason: Consult order Labs 12/20/24 06:23 12/20/24 06:23 Labs: Laboratory Results - last 24 hr 12/14/24 12/19/24 12/19/24 17:11 16:39 19:56 MCV MCH MCHC RDW Plt Count MPV Immature Gran % (Auto) Neut % (Auto) Lymph % (Auto) [place] % (Auto) Eos % (Auto) Baso % (Auto) Lymph # (Auto) [place] # (Auto) Eos # (Auto) Baso # (Auto) Abs Immat Gran (auto) Absolute Neuts (auto) Absolute Nucleated RBC Nucleated RBC % (auto) Anion Gap Estim Creat Clear Calc Estimated GFR POC Glucose 123 H 101 Random Glucose Calcium Phosphorus Magnesium Albumin Lamotrigine 1.8 L 12/20/24 12/20/24 12/20/24 04:35 06:23 08:48 MCV 87.9 MCH 32.4 MCHC 36.8 H RDW 11.8 Plt Count 208 MPV 10.8 Immature Gran % (Auto) 0.4 Neut % (Auto) 66.6 Lymph % (Auto) 22.9 [place] % (Auto) 8.5 Eos % (Auto) 1.3 Baso % (Auto) 0.3 Lymph # (Auto) 2.1 [place] # (Auto) 0.8 Eos # (Auto) 0.1 Baso # (Auto) 0.0 Abs Immat Gran (auto) 0.04 H Absolute Neuts (auto) 6.0 Absolute Nucleated RBC 0.000 Nucleated RBC % (auto) 0.0 Anion Gap 13 Estim Creat Clear Calc 178.4 Estimated GFR > 60 POC Glucose 114 Random Glucose 118 H Calcium 8.7 Phosphorus 2.7 Magnesium 1.7 Albumin 3.6 Lamotrigine 12/20/24 10:35 MCV MCH MCHC RDW Plt Count MPV Immature Gran % (Auto) Neut % (Auto) Lymph % (Auto) [place] % (Auto) Eos % (Auto) Baso % (Auto) Lymph # (Auto) [place] # (Auto) Eos # (Auto) Baso # (Auto) Abs Immat Gran (auto) Absolute Neuts (auto) Absolute Nucleated RBC Nucleated RBC % (auto) Anion Gap Estim Creat Clear Calc Estimated GFR POC Glucose 121 H Random Glucose Calcium Phosphorus Magnesium Albumin Lamotrigine Microbiology Microbiology Results: Microbiology 12/16/24 15:44 Gram Stain - Final Cerebrospinal Fluid CSF Examination - Final Fluid Description - Final CSF Culture - Final No growth after 3 days. 12/14/24 17:11 Blood Culture - Final Blood - Venous No growth after 5 days. 12/14/24 17:12 Blood Culture - Final Blood - Venous No growth after 5 days. Assessment and Plan (1) Toxic metabolic encephalopathy: Status: Acute (2) Pneumonia: Status: Acute (3) Acute hypoxemic respiratory failure: Status: Acute Plan 34M PMH bipolar 1 [facility] and [facility] hypoxia Acute metabolic\Toxic encephalopathy likely related to catatonia less likely encephalitis LP showing small amoung of WBCs of 11, could be iatrogenic as sample also has RBCs Negative encephalitis panel pending CSF cultures dc IV Acyclovir MRI negative for any acute findings EEG negative for any seizure activities Psychiatry following, He will need ECT treatment scheduled To start PPN Sepsis and acute hypoxic respiratory failure secondary to aspiration pneumonia with risk for MRSA given recent hospitalization Sepsis resolved On Zosyn for aspirationn Wean O2 as tolerated [employer] rec NDD1 Bipolar 1 with catatonia versus malignant catatonia No significant improvement with Ativan, holding antipsychotics, Psychiatry following DVT prophylaxis with Lovenox Full Code reason for continued hospitalization: Awaiting mental status improvement, ECT treatment Quality Stroke Does the patient have a stroke diagnosis?: No VTE Prior VTE?: No VTE Risk Level:: Medical - moderate - high VTE Device Contraindication: Treatment Not Indicated VTE Drug Contraindication: N/A - Med Ordered
[2024-12-20 16:00] VITALS: BP 158/88; PULSE 84; RESP 18; TEMP 36.3; O2SAT 94
[2024-12-20 16:22] LABS: Glucose, Whole Blood 127 mg/dL (60-115)
[2024-12-20] MEDS: Enoxaparin Sodium 40 MG/0.4 ML SYRINGE SUBCUT (19:32)
[2024-12-20 20:00] VITALS: BP 153/107; PULSE 100; RESP 17; TEMP 36.2; O2SAT 93
[2024-12-20] MEDS: Parenteral Nutrition 1,440 ML 60 ML IV (20:34)
[2024-12-21] VITALS: BP 130/89; PULSE 93; RESP 17; TEMP 37.1; O2SAT 94
[2024-12-21 00:21] LABS: Glucose, Whole Blood 113 mg/dL (60-115)
[2024-12-21] MEDS: Piperacillin Sodium/Tazobactam 4.5 GM in 0.9 % Sodium Chloride 100 ML IV ×4 (03:04→22:10)
[2024-12-21 03:43] VITALS: BP 157/99; PULSE 88; RESP 17; TEMP 37.1; O2SAT 95
[2024-12-21] MEDS: LORazepam 2 MG/ML VIAL 1 MG IVPUSH ×4 (03:54→22:09)
[2024-12-21 06:58] LABS: Glucose, Whole Blood 126 mg/dL (60-115)
[2024-12-21 07:42] VITALS: BP 151/90; PULSE 86; RESP 18; TEMP 37; O2SAT 92
[2024-12-21 07:52] LABS: Albumin Level 3.6 g/dL (3.5-5.0); Anion Gap 12 (12-20); Blood Urea Nitrogen 7 mg/dL (9-16); Calcium 8.9 mg/dL (8.4-10.2); Carbon Dioxide 24 mmol/L (22-29); Chloride 108 mmol/L (96-108); Creatinine Clr Calc Pharmacy 168.7; Estimated Glomerular Filt Rate > 60; Glucose Random 119 mg/dL (60-115); Phosphorus 3.6 mg/dL (2.7-4.5); Potassium 3.2 mmol/L (3.3-5.1); Sodium 141 mmol/L (135-145); Triglycerides 166 mg/dL (<150)
[2024-12-21 08:46] LABS: Hemoglobin 14.9 g/dl (14.0-18.0); Mean Corpuscular HGB Conc 37.3 g/dl (31.0-36.0); Mean Corpuscular Hemoglobin 32.7 pg (27.0-33.0); Mean Corpuscular Volume 87.7 fL (80.0-98.0); Mean Platelet Volume 10.7 fL (9.4-12.4); Platelet Count 209 X10*3/uL (160-400); Red Blood Count 4.56 X10*6/uL (4.60-5.80); Red Cell Distribution Width 11.9 % (11.0-16.0); White Blood Count 8.7 X10*3/uL (4.8-10.8)
[2024-12-21] MEDS: Nicotine 21 MG PATCH.TD24 TRANSDERMA (09:01)
--- NOTE | 2024-12-21 10:34 | MHC.SLORD ---
Speech Language Pathology Order Status: Pt sleeping. Staff reported pt refused breakfast this morning. SOCIAL WORK NURSE continues to follow.
[2024-12-21 11:12] LABS: Glucose, Whole Blood 114 mg/dL (60-115)
--- NOTE | 2024-12-21 11:23 | P.PNIM_ITS ---
Subjective Subjective Date of Service: 12/21/24 Interval History: Seen and evaluated this morning still non-verbal or following commands open eyes and look around but not interactive no fever reported no other events Review of Systems Review of Systems: Yes Unobtainable due to mental status Physical Exam 2 Vital Signs: Vital Signs: Last Vital Signs Temp 98.6 F 12/21/24 07:42 Pulse 86 12/21/24 07:42 Resp 18 12/21/24 07:42 BP 151/90 H 12/21/24 07:42 Pulse Ox 92 12/21/24 07:42 O2 Del Method Room Air 12/21/24 07:42 O2 Flow Rate 93 12/21/24 00:00 BMI result Body Mass Index 29.8 Const: Other: Constitutional : alert with stimulation but non verbal on intercative, not in distress Cardiovascular : no JVP, no lower extremity edema Respiratory : bilateral chest movement, not in resp distress Gastrointestinal: soft, lax, Non tender Skin : Warm, Dry Neurological : Alert & non-responsive verbally, not following commands , moving extremities Objective Data Active Medications Acetaminophen (Acetaminophen Supp 650 Mg Supp.Rect) 650 mg IN Q6H PRN PRN Reason: Pain, Mild 1-3,fever,headache Last Admin: 12/17/24 20:49 Dose: 650 mg Documented By: NOLAN Enoxaparin Sodium (Enoxaparin Sodium 40 Mg/0.4 Ml Syringe) 40 mg SUBCUT Q24H [facility] Last Admin: 12/20/24 19:32 Dose: 40 mg Documented By: ABEL Piperacillin Sod/Tazobactam (Sod 4.5 gm/ Sodium Chloride) 100 mls @ 200 mls/hr IV Q6H [facility] Last Infusion: 12/21/24 09:32 Dose: Infused Documented By: CECE Nutrition (Parenteral) (Parenteral Nutrition) 1,440 mls @ 60 mls/hr IV .Q24H [facility]ADIMIR; Protocol Stop: 12/21/24 20:59 Last Admin: 12/20/24 20:34 Dose: 60 mls/hr Documented By: ABEL Nutrition (Parenteral) (Parenteral Nutrition) 1,920 mls @ 80 mls/hr IV .Q24H [facility]; Protocol Stop: 12/22/24 20:59 Lorazepam (Lorazepam 2 Mg/Ml Vial) 1 mg IVPUSH Q6H [facility] Last Admin: 12/21/24 09:01 Dose: 1 mg Documented By: CECE Nicotine (Nicotine 21 Mg Patch.Td24) 21 mg TRANSDERMA DAILY [facility] Last Admin: 12/21/24 09:01 Dose: 21 mg Documented By: CECE Ondansetron HCl (Ondansetron Hcl 4 Mg/2 Ml Vial) 4 mg IVPUSH Q8H PRN PRN Reason: Nausea and Vomiting Pharmacy Consult (Consult Rx Parenteral Nutrition Ordering) 1 each MISCELLANE DAILY PRN PRN Reason: Consult order Labs 12/21/24 08:09 12/21/24 07:18 Labs: Laboratory Results - last 24 hr 12/20/24 12/21/24 12/21/24 16:17 00:13 06:53 MCV MCH MCHC RDW Plt Count MPV Absolute Nucleated RBC Nucleated RBC % (auto) Anion Gap Estim Creat Clear Calc Estimated GFR POC Glucose 127 H 113 126 H Random Glucose Calcium Phosphorus Magnesium Albumin Triglycerides 12/21/24 12/21/24 12/21/24 07:18 08:09 10:46 MCV 87.7 MCH 32.7 MCHC 37.3 H RDW 11.9 Plt Count 209 MPV 10.7 Absolute Nucleated RBC 0.000 Nucleated RBC % (auto) 0.0 Anion Gap 12 Estim Creat Clear Calc 168.7 Estimated GFR > 60 POC Glucose 114 Random Glucose 119 H Calcium 8.9 Phosphorus 3.6 Magnesium 2.0 Albumin 3.6 Triglycerides 166 H Microbiology Microbiology Results: Microbiology 12/15/24 19:47 Blood Culture - Final Blood - Venous No growth after 5 days. 12/15/24 19:29 Blood Culture - Final Blood - Venous No growth after 5 days. 12/16/24 15:44 Gram Stain - Final Cerebrospinal Fluid CSF Examination - Final Fluid Description - Final CSF Culture - Final No growth after 3 days. Assessment and Plan (1) Toxic metabolic encephalopathy: Status: Acute (2) Pneumonia: Status: Acute (3) Bipolar I disorder with catatonia: Status: Acute (4) Catatonia: Status: Acute Plan 34M PMH bipolar 1 who was sent for [facility] for catatonia and acute hypoxia Acute metabolic\Toxic encephalopathy likely related to catatonia less likely encephalitis LP showing small amoung of WBCs of 11, could be iatrogenic as sample also has RBCs Negative encephalitis panel pending CSF cultures dc IV Acyclovir MRI negative for any acute findings EEG negative for any seizure activities Psychiatry following, He will need ECT treatment scheduled Continue PPN Acute hypokalemia replacement given by PPN follow BMP Sepsis and acute hypoxic respiratory failure secondary to aspiration pneumonia with risk for MRSA given recent hospitalization Sepsis resolved On Zosyn for aspirationn Weaned O2 off [employer] rec NDD1 Bipolar 1 with catatonia versus malignant catatonia No significant improvement with Ativan, holding antipsychotics, Psychiatry following DVT prophylaxis with Lovenox Full Code reason for continued hospitalization: Awaiting mental status improvement, ECT treatment Quality Stroke Does the patient have a stroke diagnosis?: No VTE Prior VTE?: No VTE Risk Level:: Medical - moderate - high VTE Device Contraindication: Treatment Not Indicated VTE Drug Contraindication: N/A - Med Ordered
[2024-12-21 11:34] VITALS: BP 164/94; PULSE 80; RESP 18; TEMP 36.7; O2SAT 93
[2024-12-21 15:53] VITALS: BP 152/84; PULSE 92; RESP 18; TEMP 36.6; O2SAT 94
[2024-12-21 16:50] LABS: Glucose, Whole Blood 119 mg/dL (60-115)
[2024-12-21 19:58] VITALS: BP 158/86; PULSE 90; RESP 18; TEMP 36.9; O2SAT 92
[2024-12-21] MEDS: Parenteral Nutrition 1,920 ML 80 ML IV (22:09)
[2024-12-21] MEDS: Enoxaparin Sodium 40 MG/0.4 ML SYRINGE SUBCUT (22:10)
[2024-12-21 22:27] LABS: Glucose, Whole Blood 106 mg/dL (60-115)
[2024-12-22] VITALS (13 sets, daily range): BP systolic 137–167; BP diastolic 90–120; PULSE 92–111; RESP 12–26; TEMP 36.1–37.7; O2SAT 92–96; BMI 29.8
[2024-12-22] MEDS: Acetaminophen Supp 650 MG SUPP.RECT PR (01:01)
[2024-12-22 04:24] LABS: Glucose, Whole Blood 140 mg/dL (60-115)
[2024-12-22] MEDS: Piperacillin Sodium/Tazobactam 4.5 GM in 0.9 % Sodium Chloride 100 ML IV ×4 (04:30→21:49)
[2024-12-22] MEDS: LORazepam 2 MG/ML VIAL 1 MG IVPUSH (04:30)
[2024-12-22 07:02] LABS: MANUAL DIFF FLAG NO
[2024-12-22 07:10] LABS: Basophils Percent Auto 0.3 % (0-2); Eosinophils Absolute Auto 0.2 X10*3/uL (0.0-0.4); Eosinophils Percent Auto 1.6 % (0-4); Hematocrit 42.3 % (42.0-52.0); Imm Gran Abs Auto 0.05 X10*3/uL (0.00-0.03); Imm Gran Pct Auto 0.5 % (0.0-0.4); Lymphocytes Absolute Auto 2.5 X10*3/uL (1.2-4.9); Lymphocytes Percent Auto 26.8 % (20-40); Mean Corpuscular HGB Conc 35.5 g/dl (31.0-36.0); Mean Corpuscular Volume 90.2 fL (80.0-98.0); Mean Platelet Volume 10.9 fL (9.4-12.4); Monocytes Absolute Auto 0.8 X10*3/uL (0.1-1.2); Monocytes Percent Auto 8.4 % (2-11); Neutrophils Absolute Auto 5.8 x10*3/uL (2.0-8.3); Neutrophils Percent Auto 62.4 % (45-73); Platelet Count 227 X10*3/uL (160-400); Red Blood Count 4.69 X10*6/uL (4.60-5.80); Red Cell Distribution Width 12.1 % (11.0-16.0); White Blood Count 9.3 X10*3/uL (4.8-10.8)
[2024-12-22 07:21] LABS: Albumin Level 3.7 g/dL (3.5-5.0); Anion Gap 13 (12-20); Blood Urea Nitrogen 10 mg/dL (9-16); Carbon Dioxide 22 mmol/L (22-29); Chloride 108 mmol/L (96-108); Creatinine Clr Calc Pharmacy 175.9; Estimated Glomerular Filt Rate > 60; Glucose Random 123 mg/dL (60-115); Magnesium 2.1 mg/dL (1.6-2.6); Phosphorus 3.9 mg/dL (2.7-4.5); Potassium 3.5 mmol/L (3.3-5.1); Sodium 139 mmol/L (135-145)
[2024-12-22 07:39] LABS: Glucose, Whole Blood 123 mg/dL (60-115)
[2024-12-22] MEDS: LORazepam 2 MG/ML VIAL IVPUSH (08:16)
[2024-12-22] MEDS: Nicotine 21 MG PATCH.TD24 TRANSDERMA (08:16)
--- NOTE | 2024-12-22 10:02 | MHC.SLORD ---
Speech Language Pathology Order Status: Pt continues to be nonverbal, refusing PO. BATCH WEIGHER to return in the afternoon or upon RN text to assess swallow.
--- NOTE | 2024-12-22 11:06 | MHC.CLN ---
CONSULT FOR PPN PT WITH POOR PO R/T CATATONIA PPN STARTED ON 12/20 REVIEWED LABS; TRIGS 166 DISCUSSED WITH PHARMACY RECOMMEND INCREASING TO MAX GOAL RATE PPN 80ML/HR WITH 88G LIPIDS TO PROVIDE 1859 TOTAL KCALS (23KCALS/KG BASED ON IBW), 82G PROTEIN (1.0G/KG), 192G DEXTROSE REPLETE LYTES NEEDED SEE FULL CLINICAL NUTRITION ASSESSMENT
--- NOTE | 2024-12-22 11:07 | MHC.CM.PN ---
EMR REVIEWED, PT REMAINS NONVERBAL, NOT FOLLOWING CUES AND ON PPN, PER HOSPITALIST PLAN FOR ECT TODAY, NO PLAN FOR DC AT THIS TIME, CM WILL CONT TO FOLLOW DC NEEDS.
[2024-12-22 12:02] LABS: Glucose, Whole Blood 130 mg/dL (60-115)
--- NOTE | 2024-12-22 12:05 | P.PNIM_ITS ---
Subjective Subjective Date of Service: 12/22/24 Interval History: Seen and evaluated this morning still non-verbal or following commands open eyes and look around and made a hand-shake today but not interactive or responding no fever reported no other events Review of Systems Review of Systems: Yes Unobtainable due to mental status Physical Exam 2 Vital Signs: Vital Signs: Last Vital Signs Temp 99.0 F 12/22/24 08:00 Pulse 92 12/22/24 08:00 Resp 16 12/22/24 08:00 BP 145/100 H 12/22/24 04:00 Pulse Ox 92 12/22/24 08:00 O2 Del Method Room Air 12/22/24 08:00 O2 Flow Rate 93 12/21/24 00:00 BMI result Body Mass Index 29.8 Const: Other: Constitutional : alert with stimulation but non verbal on intercative, not in distress Cardiovascular : no JVP, no lower extremity edema Respiratory : bilateral chest movement, not in resp distress Gastrointestinal: soft, lax, Non tender Skin : Warm, Dry Neurological : Alert & non-responsive verbally, not following commands , moving extremities Objective Data Active Medications Acetaminophen (Acetaminophen Supp 650 Mg Supp.Rect) 650 mg SC Q6H PRN PRN Reason: Pain, Mild 1-3,fever,headache Last Admin: 12/22/24 01:01 Dose: 650 mg Documented By: MARITZA Enoxaparin Sodium (Enoxaparin Sodium 40 Mg/0.4 Ml Syringe) 40 mg SUBCUT Q24H VLADIMIR Last Admin: 12/21/24 22:10 Dose: 40 mg Documented By: MARITZA Piperacillin Sod/Tazobactam (Sod 4.5 gm/ Sodium Chloride) 100 mls @ 200 mls/hr IV Q6H [facility]AD[facility] Last Infusion: 12/22/24 10:53 Dose: Infused Documented By: CINDY Nutrition (Parenteral) (Parenteral Nutrition) 1,920 mls @ 80 mls/hr IV .Q24H [facility]; Protocol Stop: 12/22/24 20:59 Last Admin: 12/21/24 22:09 Dose: 80 mls/hr Documented By: MARITZA Nutrition (Parenteral) (Parenteral Nutrition) 1,920 mls @ 80 mls/hr IV .Q24H [facility]; Protocol Stop: 12/23/24 20:59 Lorazepam (Lorazepam 2 Mg/Ml Vial) 2 mg IVPUSH Q6H [facility] Last Admin: 12/22/24 08:16 Dose: 2 mg Documented By: CINDY Nicotine (Nicotine 21 Mg Patch.Td24) 21 mg TRANSDERMA DAILY [facility] Last Admin: 12/22/24 08:16 Dose: 21 mg Documented By: CINDY Nystatin (Nystatin Powder 15 Gm Bottle) 1 appl TOPICAL BID VLADIMIR; Protocol Ondansetron HCl (Ondansetron Hcl 4 Mg/2 Ml Vial) 4 mg IVPUSH Q8H PRN PRN Reason: Nausea and Vomiting Pharmacy Consult (Consult Rx Parenteral Nutrition Ordering) 1 each MISCELLANE DAILY PRN PRN Reason: Consult order Labs 12/22/24 06:17 12/22/24 06:17 Labs: Laboratory Results - last 24 hr 12/21/24 12/21/24 12/22/24 16:42 22:22 04:21 MCV MCH MCHC RDW Plt Count MPV Immature Gran % (Auto) Neut % (Auto) Lymph % (Auto) [place] % (Auto) Eos % (Auto) Baso % (Auto) Lymph # (Auto) [place] # (Auto) Eos # (Auto) Baso # (Auto) Abs Immat Gran (auto) Absolute Neuts (auto) Absolute Nucleated RBC Nucleated RBC % (auto) Anion Gap Estim Creat Clear Calc Estimated GFR POC Glucose 119 H 106 140 H Random Glucose Calcium Phosphorus Magnesium Albumin 12/22/24 12/22/24 12/22/24 06:17 07:27 11:03 MCV 90.2 MCH 32.0 MCHC 35.5 RDW 12.1 Plt Count 227 MPV 10.9 Immature Gran % (Auto) 0.5 H Neut % (Auto) 62.4 Lymph % (Auto) 26.8 [place] % (Auto) 8.4 Eos % (Auto) 1.6 Baso % (Auto) 0.3 Lymph # (Auto) 2.5 [place] # (Auto) 0.8 Eos # (Auto) 0.2 Baso # (Auto) 0.0 Abs Immat Gran (auto) 0.05 H Absolute Neuts (auto) 5.8 Absolute Nucleated RBC 0.000 Nucleated RBC % (auto) 0.0 Anion Gap 13 Estim Creat Clear Calc 175.9 Estimated GFR > 60 POC Glucose 123 H 130 H Random Glucose 123 H Calcium 9.0 Phosphorus 3.9 Magnesium 2.1 Albumin 3.7 Assessment and Plan (1) Toxic metabolic encephalopathy: Status: Acute (2) Pneumonia: Status: Acute (3) Acute hypoxemic respiratory failure: Status: Acute (4) Sepsis: Status: Acute Plan 34M PMH bipolar 1 who was sent for [facility] for catatonia and acute hypoxia Acute metabolic\Toxic encephalopathy likely related to catatonia less likely encephalitis LP showing small amoung of WBCs of 11, could be iatrogenic as sample also has RBCs Negative encephalitis panel pending CSF cultures, dc IV Acyclovir MRI negative for any acute findings EEG negative for any seizure activities Increase Lorazepam to 2 mg Q6H Psychiatry following, continue ECT treatment as scheduled Continue PPN Acute hypokalemia replacement given by PPN follow BMP Sepsis and acute hypoxic respiratory failure secondary to aspiration pneumonia with risk for MRSA given recent hospitalization Sepsis resolved On Zosyn for aspirationn started 12/15, to finish total of 10 days. Weaned O2 off [employer] rec NDD1 Bipolar 1 with catatonia versus malignant catatonia No significant improvement with Ativan, holding antipsychotics, Psychiatry following DVT prophylaxis with Lovenox Full Code reason for continued hospitalization: Awaiting mental status improvement, ECT treatment Quality Stroke Does the patient have a stroke diagnosis?: No VTE Prior VTE?: No VTE Risk Level:: Medical - moderate - high VTE Device Contraindication: Treatment Not Indicated VTE Drug Contraindication: N/A - Med Ordered
[2024-12-22] MEDS: Nystatin Powder 15 GM BOTTLE 1 APPL TOPICAL ×2 (12:18→21:49)
[2024-12-22] MEDS: Lactated Ringers 1,000 ML 100 ML IVCONT (12:40)
--- NOTE | 2024-12-22 12:44 | MHC.SHP ---
Pre-Procedural Eval Section A - 24 Hr Update-Section A only Date of Service: 12/22/24 The patient is an INPATIENT: Yes Changes since office visit: No Cold of Flu in the past 2 weeks, No New Medical Problems, No Changes in Medication and No Patient answered all questions The patient has been examined within 24 hours of the surgical procedure. The History & Physical has been completed within 30 days and I have reviewed it.: Yes Section B - Complete if H&P > 30 days Chief Complaint: pneumonia, hypoxia, sepsis Allergies: Allergies Allergy/AdvReac Type Severity Reaction Status Date / Time sertraline [From Zoloft] Allergy Unknown Verified 12/14/24 16:10 Plan I have reviewed the history and physical and performed a pertinent physical examination on my patient. No changes have occurred unless specified. Time Spent With Patient Time: Total time managing care of this patient today ____ minutes.
--- NOTE | 2024-12-22 12:54 | HO.ECTPROC ---
ECT Procedure Note Diagnosis/Treatment Date of Service: 12/22/24 Previous ECT Date: 12/19/24 Current Treatment Number: 2 Treatment: Series Interval Clinical Notes: The patient remains catatonic, unable to answer any question. ECT done now as bitemperal since he didn't have any improvement with the first ECT. Also Succynilcholine increased up to 100. ECT done as bitemperal but he will need more Succynilcholine since he was not relaxed. Added Ativan 2 mg IVP after ECT due to history of agitaton and to hel pwith catatonia. Time: Total time managing care of this patient today ____ minutes. ECT Settings Device: THYMATRON DGx Electrode Placement: Bitemporal Program/Pulse Width: 0.50 Energy Percent: 100 Seizure Duration By EEG (in seconds): 16 By Motor Observation (in seconds): 20 Medications Administration General Anesthetic: Etomidate (12) Muscle Relaxant: Succinylcholine (100) Ancillary Medications Miscillaneous Medications: Other (Ativan 2 mg IVP) Airway Management Airway Management: Bag Mask Ventilation Treatment Recommendations No Changes Recommended: No change Notes: Increase Succynilcholine to 120
[2024-12-22 16:20] LABS: Glucose, Whole Blood 136 mg/dL (60-115)
[2024-12-22 20:43] LABS: Glucose, Whole Blood 129 mg/dL (60-115)
[2024-12-22] MEDS: Enoxaparin Sodium 40 MG/0.4 ML SYRINGE SUBCUT (21:46)
[2024-12-22] MEDS: Parenteral Nutrition 1,920 ML 80 ML IV (21:48)
[2024-12-23 03:13] VITALS: BP 161/103; PULSE 80; RESP 18; TEMP 37; O2SAT 96
[2024-12-23] MEDS: Piperacillin Sodium/Tazobactam 4.5 GM in 0.9 % Sodium Chloride 100 ML IV ×4 (04:09→21:52)
[2024-12-23 05:56] LABS: Glucose, Whole Blood 138 mg/dL (60-115)
[2024-12-23 07:09] LABS: Albumin Level 3.6 g/dL (3.5-5.0); Anion Gap 11 (12-20); Blood Urea Nitrogen 9 mg/dL (9-16); Calcium 8.9 mg/dL (8.4-10.2); Carbon Dioxide 20 mmol/L (22-29); Chloride 109 mmol/L (96-108); Creatinine Clr Calc Pharmacy 183.6; Estimated Glomerular Filt Rate > 60; Glucose Random 143 mg/dL (60-115); Phosphorus 3.1 mg/dL (2.7-4.5); Potassium 3.8 mmol/L (3.3-5.1); Sodium 136 mmol/L (135-145)
[2024-12-23 07:11] LABS: Anion Gap 12 (12-20); Blood Urea Nitrogen 11 mg/dL (9-16); Calcium 8.9 mg/dL (8.4-10.2); Carbon Dioxide 20 mmol/L (22-29); Chloride 109 mmol/L (96-108); Creatinine Clr Calc Pharmacy 178.4; Estimated Glomerular Filt Rate > 60; Glucose Random 143 mg/dL (60-115); Potassium 3.8 mmol/L (3.3-5.1); Sodium 137 mmol/L (135-145)
[2024-12-23 08:00] VITALS: BP 152/98; PULSE 100; RESP 17; TEMP 37.2; O2SAT 96
[2024-12-23] MEDS: Nicotine 21 MG PATCH.TD24 TRANSDERMA (09:02)
[2024-12-23] MEDS: Nystatin Powder 15 GM BOTTLE 1 APPL TOPICAL ×2 (09:05→20:59)
[2024-12-23] MEDS: LORazepam 2 MG/ML VIAL IVPUSH (10:36)
--- NOTE | 2024-12-23 10:57 | MHC.CLN ---
F/U PT CONTINUES WITH POOR PO R/T CATATONIA REVIEWED LABS DISCUSSED WITH PHARMACY CONTINUE PPN AT MAX GOAL RATE 80ML/HR WITH 88G LIPIDS PROVIDES 1859 TOTAL KCALS (23KCALS/KG BASED ON IBW), 82G PROTEIN (1.0G/KG), 192G DEXTROSE REPLETE LYTES NEEDED
[2024-12-23 11:02] LABS: Glucose, Whole Blood 133 mg/dL (60-115)
[2024-12-23 11:53] VITALS: BP 130/97; PULSE 112; RESP 20; TEMP 37.1; O2SAT 96
--- NOTE | 2024-12-23 12:25 | P.PNIM_ITS ---
Subjective Subjective Date of Service: 12/23/24 Interval History: Seen and evaluated this morning non-verbal or following commands open eyes and look around , not interactive or responding reported that he said yes\no to the aid worker earlier this morning no fever reported Review of Systems Review of Systems: Yes Unobtainable due to mental status Physical Exam 2 Vital Signs: Vital Signs: Last Vital Signs Temp 98.7 F 12/23/24 11:53 Pulse 112 H 12/23/24 11:53 Resp 20 12/23/24 11:53 BP 130/97 H 12/23/24 11:53 Pulse Ox 96 12/23/24 11:53 O2 Del Method Room Air 12/23/24 11:53 O2 Flow Rate 2 12/22/24 13:33 BMI result Body Mass Index 29.8 Const: Other: Constitutional : alert with stimulation but non verbal on intercative, not in distress Cardiovascular : no JVP, no lower extremity edema Respiratory : bilateral chest movement, not in resp distress Gastrointestinal: soft, lax, Non tender Skin : Warm, Dry Neurological : Alert & non-responsive verbally, not following commands , moving extremities Objective Data Active Medications Acetaminophen (Acetaminophen Supp 650 Mg Supp.Rect) 650 mg [place] Q6H PRN PRN Reason: Pain, Mild 1-3,fever,headache Last Admin: 12/22/24 01:01 Dose: 650 mg Documented By: MARITZA Enoxaparin Sodium (Enoxaparin Sodium 40 Mg/0.4 Ml Syringe) 40 mg SUBCUT Q24H [facility]ADIMIR Last Admin: 12/22/24 21:46 Dose: 40 mg Documented By: OJ Piperacillin Sod/Tazobactam (Sod 4.5 gm/ Sodium Chloride) 100 mls @ 200 mls/hr IV Q6H [facility]AD[facility] Last Infusion: 12/23/24 09:32 Dose: Infused Documented By: CINDY Nutrition (Parenteral) (Parenteral Nutrition) 1,920 mls @ 80 mls/hr IV .Q24H [facility]AD[facility]; Protocol Stop: 12/23/24 20:59 Last Admin: 12/22/24 21:48 Dose: 80 mls/hr Documented By: OJ Nutrition (Parenteral) (Parenteral Nutrition) 1,920 mls @ 80 mls/hr IV .Q24H [facility]AD[facility]; Protocol Stop: 12/24/24 20:59 Lorazepam (Lorazepam 2 Mg/Ml Vial) 2 mg IVPUSH Q6H [facility] Last Admin: 12/23/24 10:36 Dose: 2 mg Documented By: CINDY Nicotine (Nicotine 21 Mg Patch.Td24) 21 mg TRANSDERMA DAILY [facility] Last Admin: 12/23/24 09:02 Dose: 21 mg Documented By: CINYD Nystatin (Nystatin Powder 15 Gm Bottle) 1 appl TOPICAL BID VLADIMIR; Protocol Last Admin: 12/23/24 09:05 Dose: 1 appl Documented By: CINDY Ondansetron HCl (Ondansetron Hcl 4 Mg/2 Ml Vial) 4 mg IVPUSH Q8H PRN PRN Reason: Nausea and Vomiting Pharmacy Consult (Consult Rx Parenteral Nutrition Ordering) 1 each MISCELLANE DAILY PRN PRN Reason: Consult order Labs 12/22/24 06:17 12/23/24 06:27 Labs: Laboratory Results - last 24 hr 12/22/24 12/22/24 12/23/24 16:07 20:40 05:52 Anion Gap Estim Creat Clear Calc Estimated GFR POC Glucose 136 H 129 H 138 H Random Glucose Calcium Phosphorus Magnesium Albumin 12/23/24 12/23/24 12/23/24 06:27 06:27 06:27 Anion Gap 12 11 L Estim Creat Clear Calc 178.4 183.6 Estimated GFR > 60 POC Glucose Random Glucose Calcium Phosphorus Magnesium Albumin 12/23/24 12/23/24 12/23/24 06:27 06:27 06:27 Anion Gap Estim Creat Clear Calc Estimated GFR > 60 POC Glucose Random Glucose 143 H 143 H Calcium 8.9 8.9 Phosphorus 3.1 Magnesium 2.0 Albumin 3.6 12/23/24 10:43 Anion Gap Estim Creat Clear Calc Estimated GFR POC Glucose 133 H Random Glucose Calcium Phosphorus Magnesium Albumin Assessment and Plan (1) Toxic metabolic encephalopathy: Status: Acute (2) Catatonia: Status: Acute Plan 34M PMH bipolar 1 who was sent for [facility] for catatonia and acute hypoxia Acute metabolic\Toxic encephalopathy likely related to catatonia LP showing small amoung of WBCs of 11, could be iatrogenic as sample also has RBCs , Negative encephalitis panel, Negative CSF cultures, dcd IV Acyclovir MRI negative for any acute findings EEG negative for any seizure activities Lorazepam to 1mg Q6H Psychiatry following, continue ECT treatment as scheduled received 2 ECT by now, to continue three times a week MWF Continue PPN until he is able to tolerate PO Acute hypokalemia replacement given by PPN follow BMP Sepsis and acute hypoxic respiratory failure secondary to aspiration pneumonia with risk for MRSA given recent hospitalization Sepsis resolved On Zosyn for aspirationn started 12/15, to finish total of 10 days. Weaned O2 off [employer] rec NDD1 Bipolar 1 with catatonia versus malignant catatonia No significant improvement with Ativan, holding antipsychotics, Psychiatry following DVT prophylaxis with Lovenox Full Code reason for continued hospitalization: Awaiting mental status improvement, ECT treatment Quality Stroke Does the patient have a stroke diagnosis?: No VTE Prior VTE?: No VTE Risk Level:: Medical - moderate - high VTE Device Contraindication: Treatment Not Indicated VTE Drug Contraindication: N/A - Med Ordered
[2024-12-23] MEDS: LORazepam 2 MG/ML VIAL 1 MG IVPUSH ×2 (13:18→18:29)
--- NOTE | 2024-12-23 13:40 | PC.NURSE ---
maynard cath removed at 1320 per Md order. pt d/t void at [phone].
--- NOTE | 2024-12-23 15:23 | P.CNPS_ITS ---
History of Present Illness Date of Service: 12/23/2024 Chief Complaint: pneumonia, hypoxia, sepsis Discussed with referring provider: Yes Sources of Information: patient interviewed, chart reviewed and crisis/core team assessment reviewed HPI Narrative: Interim Hx: Pt had 2nd ECT yesterday, apparently did verbalized few words. Today, pt mostly asleep did receive ativan 2mg IV. He has not been able to eat or drink on his own. He is currently on PPN. Ativan IV had been increased on 12/22 from 1mg IV q6h, to 2mg IV q6h. However, higher doses of benzodiazepine have proven to have no therapeutic effect, but may contribute to sedation/lethargy, respiratory suppression. Past Psychiatric History: Inpt: liat 6 years ago. Past medication trials: olanzapine, ativan 2mg/daily [facility] Medical History Bipolar I disorder with catatonia Diagnostics Vital Signs (24Hr): Vital Signs - 24 hr 12/22/24 15:45 12/22/24 19:23 12/22/24 23:42 Temperature 98.8 F 98.6 F 97.0 F Pulse Rate 103 H 95 105 H Respiratory Rate 12 20 18 Blood Pressure 140/90 H 139/97 H 137/93 H Pulse Oximetry 94 93 95 Oxygen Delivery Method Room Air Room Air Room Air 12/23/24 03:13 12/23/24 08:00 12/23/24 11:53 Temperature 98.6 F 99.0 F 98.7 F Pulse Rate 80 100 112 H Respiratory Rate 18 17 20 Blood Pressure 161/103 H 152/98 H 130/97 H Pulse Oximetry 96 96 96 Oxygen Delivery Method Room Air Room Air Room Air BMI result Body Mass Index 29.8 Labs 12/22/24 06:17 12/23/24 06:27 Labs: Laboratory Results - last 48 hr 12/21/24 12/21/24 12/22/24 16:42 22:22 04:21 WBC RBC Hgb Hct MCV MCH MCHC RDW Plt Count MPV Immature Gran % (Auto) Neut % (Auto) Lymph % (Auto) [place] % (Auto) Eos % (Auto) Baso % (Auto) Lymph # (Auto) [place] # (Auto) Eos # (Auto) Baso # (Auto) Abs Immat Gran (auto) Absolute Neuts (auto) Absolute Nucleated RBC Nucleated RBC % (auto) Sodium Potassium Chloride Carbon Dioxide Anion Gap BUN Creatinine Estim Creat Clear Calc Estimated GFR POC Glucose 119 H 106 140 H Random Glucose Calcium Phosphorus Magnesium Albumin 12/22/24 12/22/24 12/22/24 06:17 07:27 11:03 WBC 9.3 RBC 4.69 Hgb 15.0 Hct 42.3 MCV 90.2 MCH 32.0 MCHC 35.5 RDW 12.1 Plt Count 227 MPV 10.9 Immature Gran % (Auto) 0.5 H Neut % (Auto) 62.4 Lymph % (Auto) 26.8 [place] % (Auto) 8.4 Eos % (Auto) 1.6 Baso % (Auto) 0.3 Lymph # (Auto) 2.5 [place] # (Auto) 0.8 Eos # (Auto) 0.2 Baso # (Auto) 0.0 Abs Immat Gran (auto) 0.05 H Absolute Neuts (auto) 5.8 Absolute Nucleated RBC 0.000 Nucleated RBC % (auto) 0.0 Sodium 139 Potassium 3.5 Chloride 108 Carbon Dioxide 22 Anion Gap 13 BUN 10 Creatinine 0.71 Estim Creat Clear Calc 175.9 Estimated GFR > 60 POC Glucose 123 H 130 H Random Glucose 123 H Calcium 9.0 Phosphorus 3.9 Magnesium 2.1 Albumin 3.7 12/22/24 12/22/24 12/23/24 16:07 20:40 05:52 WBC RBC Hgb Hct MCV MCH MCHC RDW Plt Count MPV Immature Gran % (Auto) Neut % (Auto) Lymph % (Auto) [place] % (Auto) Eos % (Auto) Baso % (Auto) Lymph # (Auto) [place] # (Auto) Eos # (Auto) Baso # (Auto) Abs Immat Gran (auto) Absolute Neuts (auto) Absolute Nucleated RBC Nucleated RBC % (auto) Sodium Potassium Chloride Carbon Dioxide Anion Gap BUN Creatinine Estim Creat Clear Calc Estimated GFR POC Glucose 136 H 129 H 138 H Random Glucose Calcium Phosphorus Magnesium Albumin 12/23/24 12/23/24 12/23/24 06:27 06:27 06:27 WBC RBC Hgb Hct MCV MCH MCHC RDW Plt Count MPV Immature Gran % (Auto) Neut % (Auto) Lymph % (Auto) [place] % (Auto) Eos % (Auto) Baso % (Auto) Lymph # (Auto) [place] # (Auto) Eos # (Auto) Baso # (Auto) Abs Immat Gran (auto) Absolute Neuts (auto) Absolute Nucleated RBC Nucleated RBC % (auto) Sodium 137 136 Potassium 3.8 3.8 Chloride 109 H Carbon Dioxide Anion Gap BUN Creatinine Estim Creat Clear Calc Estimated GFR POC Glucose Random Glucose Calcium Phosphorus Magnesium Albumin 12/23/24 12/23/24 12/23/24 06:27 06:27 06:27 WBC RBC Hgb Hct MCV MCH MCHC RDW Plt Count MPV Immature Gran % (Auto) Neut % (Auto) Lymph % (Auto) [place] % (Auto) Eos % (Auto) Baso % (Auto) Lymph # (Auto) [place] # (Auto) Eos # (Auto) Baso # (Auto) Abs Immat Gran (auto) Absolute Neuts (auto) Absolute Nucleated RBC Nucleated RBC % (auto) Sodium Potassium Chloride 109 H Carbon Dioxide 20 L 20 L Anion Gap 12 11 L BUN 11 Creatinine Estim Creat Clear Calc Estimated GFR POC Glucose Random Glucose Calcium Phosphorus Magnesium Albumin 12/23/24 12/23/24 12/23/24 06:27 06:27 06:27 WBC RBC Hgb Hct MCV MCH MCHC RDW Plt Count MPV Immature Gran % (Auto) Neut % (Auto) Lymph % (Auto) [place] % (Auto) Eos % (Auto) Baso % (Auto) Lymph # (Auto) [place] # (Auto) Eos # (Auto) Baso # (Auto) Abs Immat Gran (auto) Absolute Neuts (auto) Absolute Nucleated RBC Nucleated RBC % (auto) Sodium Potassium Chloride Carbon Dioxide Anion Gap BUN 9 Creatinine 0.70 0.68 Estim Creat Clear Calc 178.4 183.6 Estimated GFR > 60 POC Glucose Random Glucose Calcium Phosphorus Magnesium Albumin 12/23/24 12/23/24 12/23/24 06:27 06:27 06:27 WBC RBC Hgb Hct MCV MCH MCHC RDW Plt Count MPV Immature Gran % (Auto) Neut % (Auto) Lymph % (Auto) [place] % (Auto) Eos % (Auto) Baso % (Auto) Lymph # (Auto) [place] # (Auto) Eos # (Auto) Baso # (Auto) Abs Immat Gran (auto) Absolute Neuts (auto) Absolute Nucleated RBC Nucleated RBC % (auto) Sodium Potassium Chloride Carbon Dioxide Anion Gap BUN Creatinine Estim Creat Clear Calc Estimated GFR > 60 POC Glucose Random Glucose 143 H 143 H Calcium 8.9 8.9 Phosphorus 3.1 Magnesium 2.0 Albumin 3.6 12/23/24 10:43 WBC RBC Hgb Hct MCV MCH MCHC RDW Plt Count MPV Immature Gran % (Auto) Neut % (Auto) Lymph % (Auto) [place] % (Auto) Eos % (Auto) Baso % (Auto) Lymph # (Auto) [place] # (Auto) Eos # (Auto) Baso # (Auto) Abs Immat Gran (auto) Absolute Neuts (auto) Absolute Nucleated RBC Nucleated RBC % (auto) Sodium Potassium Chloride Carbon Dioxide Anion Gap BUN Creatinine Estim Creat Clear Calc Estimated GFR POC Glucose 133 H Random Glucose Calcium Phosphorus Magnesium Albumin Imaging Radiology Impressions: ITS Impressions Fluoroscopy 12/16/24 15:33 IMPRESSION: Successful fluoroscopy-guided L4-5 lumbar puncture performed. CSF fluid collected was sent to lab as per referring physician's orders. Electronically signed by: Liam Olea MD 12/18/2024 12:41 PM EDT RP Brain MRI 12/17/24 16:03 IMPRESSION: No acute stroke/ischemia or acute brain abnormality. Electronically signed by: Lenard Quiroga MD 12/18/2024 07:19 AM EDT RP Mental Status Exam Mental Status Exam Narrative: asleep, difficult to awake Medications Medications Current Medications Acetaminophen (Acetaminophen Supp 650 Mg Supp.Rect) 650 mg [place] Q6H PRN PRN Reason: Pain, Mild 1-3,fever,headache Last Admin: 12/22/24 01:01 Dose: 650 mg Enoxaparin Sodium (Enoxaparin Sodium 40 Mg/0.4 Ml Syringe) 40 mg SUBCUT Q24H VLADIMIR Last Admin: 12/22/24 21:46 Dose: 40 mg Piperacillin Sod/Tazobactam (Sod 4.5 gm/ Sodium Chloride) 100 mls @ 200 mls/hr IV Q6H VLADIMIR Last Infusion: 12/23/24 09:32 Dose: Infused Nutrition (Parenteral) (Parenteral Nutrition) 1,920 mls @ 80 mls/hr IV .Q24H [facility]; Protocol Stop: 12/23/24 20:59 Last Admin: 12/22/24 21:48 Dose: 80 mls/hr Nutrition (Parenteral) (Parenteral Nutrition) 1,920 mls @ 80 mls/hr IV .Q24H VLADIMIR; Protocol Stop: 12/24/24 20:59 Lorazepam (Lorazepam 2 Mg/Ml Vial) 1 mg IVPUSH Q6H [facility]ADIMIR Last Admin: 12/23/24 13:18 Dose: 1 mg Nicotine (Nicotine 21 Mg Patch.Td24) 21 mg TRANSDERMA DAILY [facility] Last Admin: 12/23/24 09:02 Dose: 21 mg Nystatin (Nystatin Powder 15 Gm Bottle) 1 appl TOPICAL BID VLADIMIR; Protocol Last Admin: 12/23/24 09:05 Dose: 1 appl Ondansetron HCl (Ondansetron Hcl 4 Mg/2 Ml Vial) 4 mg IVPUSH Q8H PRN PRN Reason: Nausea and Vomiting Pharmacy Consult (Consult Rx Parenteral Nutrition Ordering) 1 each MISCELLANE DAILY PRN PRN Reason: Consult order Allergies Allergies Allergy/AdvReac Type Severity Reaction Status Date / Time sertraline [From Zoloft] Allergy Unknown Verified 12/14/24 16:10 Assessment & Plan Assessment & Plan (1) Catatonia: Status: Acute Code(s): F06.1 - Catatonic disorder due to known physiological condition Plan Mr. Ramsey is a 34 year-old male who was transferred to [facility] from [facility] due to progressive increase in s/s of catatonia. He presented with tachypnea, hypertension, hypoxia, did become afebrile, but prior reports of pt presenting as sweating. He also had Leukocytosis, mildly elevated CPK in 400's. Lactic Acid was wnl. No hotn. He was seen by neurology. Had LP which was negative for [employer] infections or other abnormalities. He has been progressively less responsive to benzodiazepine for s/s of catatonia (including mutism, black stare, waxy flexibility). No oral intake, now on PPN. PLAN -continue ECT - Continue PPN - Discussed with Dr. Emmanuel ativan dosing, would recommend lowering ativan to 1mg IV q6h as higher doses (or lower doses for that matter) have not shown to have therapeutic effect in s/s of catatonia at this point. - DVT prophylaxis Total time managing care of this patient today ____ minutes.
[2024-12-23 15:58] VITALS: BP 148/102; PULSE 97; RESP 18; TEMP 37.1; O2SAT 95
[2024-12-23 16:27] LABS: Glucose, Whole Blood 129 mg/dL (60-115)
[2024-12-23 19:41] VITALS: BP 160/98; PULSE 93; RESP 20; TEMP 36.9; O2SAT 94
[2024-12-23] MEDS: Enoxaparin Sodium 40 MG/0.4 ML SYRINGE SUBCUT (20:28)
[2024-12-23] MEDS: Parenteral Nutrition 1,920 ML 80 ML IV (21:02)
[2024-12-24] VITALS (12 sets, daily range): BP systolic 124–179; BP diastolic 83–106; PULSE 85–108; RESP 16–24; TEMP 36.2–37.1; O2SAT 92–96
[2024-12-24] MEDS: LORazepam 2 MG/ML VIAL 1 MG IVPUSH ×5 (00:48→18:27)
[2024-12-24] MEDS: Piperacillin Sodium/Tazobactam 4.5 GM in 0.9 % Sodium Chloride 100 ML IV ×4 (04:23→22:01)
[2024-12-24 04:49] LABS: Glucose, Whole Blood 153 mg/dL (60-115)
[2024-12-24 04:49] LABS: Glucose, Whole Blood 108 mg/dL (60-115)
[2024-12-24] MEDS: Lactated Ringers 1,000 ML 100 ML IVCONT (06:53)
--- NOTE | 2024-12-24 07:48 | MHC.SHP ---
Pre-Procedural Eval Section A - 24 Hr Update-Section A only Date of Service: 12/24/24 The patient is an INPATIENT: Yes Changes since office visit: Yes Cold of Flu in the past 2 weeks and Yes Changes in Medication; No New Medical Problems and No Patient answered all questions The patient has been examined within 24 hours of the surgical procedure. The History & Physical has been completed within 30 days and I have reviewed it.: Yes Section B - Complete if H&P > 30 days Chief Complaint: pneumonia, hypoxia, sepsis Allergies: Allergies Allergy/AdvReac Type Severity Reaction Status Date / Time sertraline [From Zoloft] Allergy Unknown Verified 12/14/24 16:10 Plan I have reviewed the history and physical and performed a pertinent physical examination on my patient. No changes have occurred unless specified. Time Spent With Patient Time: Total time managing care of this patient today ____ minutes.
--- NOTE | 2024-12-24 07:49 | HO.ECTPROC ---
ECT Procedure Note Diagnosis/Treatment Date of Service: 12/24/24 Diagnosis: Bipolar disorder Previous ECT Date: 12/22/24 Current Treatment Number: 3 Treatment: Series Interval Clinical Notes: The patient remains catatonic, unable to answer any question.alert eyes open ect BT with catatonia flumazenil given will hold liss next tx 8 hrs prior to ect given esmolol 30 mg post prop 30 labetolol 10 mg . Time: Total time managing care of this patient today ____ minutes. ECT Settings Device: THYMATRON DGx Electrode Placement: Bitemporal Program/Pulse Width: 0.50 Energy Percent: 100 Seizure Duration By EEG (in seconds): 49 Medications Administration General Anesthetic: Etomidate (12) Muscle Relaxant: Succinylcholine (160 next tx 140) Ancillary Medications Cardiovascular Medications: Labetolol (10) and Esmolol (20) Miscillaneous Medications: Propofol (30) and Other (Ativan 2 mg IVP) Airway Management Airway Management: Bag Mask Ventilation Treatment Recommendations Electrode Placement: Bitemporal Notes: Increase Succynilcholine to 140 avoid flumazenil hold lorazepam 8 hrs prior to ect
--- NOTE | 2024-12-24 07:59 | HO.ANESPROP2 ---
HPI - Anesthesia Eval Consult details Narrative: 34 yo male patient for ECT PMFSH Active Problems Active Problems: All Active Problems Toxic metabolic encephalopathy (Acute) Pneumonia (Acute) Acute hypoxemic respiratory failure (Acute) Sepsis (Acute) Pneumonia (Acute) Bipolar I disorder with catatonia (Acute) Catatonia (Acute) Altered mental status (Acute) Past Medical History Medical History Bipolar I disorder with catatonia Family History Family history of problems with anesthesia: No Surgical History History of Problems with Anesthesia: No Social History Social History Household Members: Spouse Housing: House Do you presently have visiting nurse or other home services: No Unable to assess alcohol history related to: Unable to respond and Refusing to respond Comment: 1:1 sitter Patient Tobacco Use Status: Current everyday Tobacco user service: No Meds Allergies Allergy/AdvReac Type Severity Reaction Status Date / Time sertraline [From Zoloft] Allergy Unknown Verified 12/14/24 16:10 Active Medications: Current Medications Acetaminophen (Acetaminophen Supp 650 Mg Supp.Rect) 650 mg TN Q6H PRN PRN Reason: Pain, Mild 1-3,fever,headache Last Admin: 12/22/24 01:01 Dose: 650 mg Enoxaparin Sodium (Enoxaparin Sodium 40 Mg/0.4 Ml Syringe) 40 mg SUBCUT Q24H VLADIMIR Last Admin: 12/23/24 20:28 Dose: 40 mg Piperacillin Sod/Tazobactam (Sod 4.5 gm/ Sodium Chloride) 100 mls @ 200 mls/hr IV Q6H VLADIMIR Last Infusion: 12/24/24 04:53 Dose: Infused Nutrition (Parenteral) (Parenteral Nutrition) 1,920 mls @ 80 mls/hr IV .Q24H VLADIMIR; Protocol Stop: 12/24/24 20:59 Last Admin: 12/23/24 21:02 Dose: 80 mls/hr Lactated Ringer's (Lr) 1,000 mls @ 100 mls/hr IVCONT .Q10H VLADIMIR Last Admin: 12/24/24 06:53 Dose: 100 mls/hr Lorazepam (Lorazepam 2 Mg/Ml Vial) 1 mg IVPUSH Q6H VLADIMIR Last Admin: 12/24/24 06:34 Dose: 1 mg Nicotine (Nicotine 21 Mg Patch.Td24) 21 mg TRANSDERMA DAILY VLADIMIR Last Admin: 12/23/24 09:02 Dose: 21 mg Nystatin (Nystatin Powder 15 Gm Bottle) 1 appl TOPICAL BID VLADIMIR; Protocol Last Admin: 12/23/24 20:59 Dose: 1 appl Ondansetron HCl (Ondansetron Hcl 4 Mg/2 Ml Vial) 4 mg IVPUSH Q8H PRN PRN Reason: Nausea and Vomiting Pharmacy Consult (Consult Rx Parenteral Nutrition Ordering) 1 each MISCELLANE DAILY PRN PRN Reason: Consult order Home Medications ?Medication ?Instructions ?Recorded ?Confirmed ?Last Taken ?Type ibuprofen 600 mg tablet 600 mg PO TID PRN Pain 12/15/24 12/15/24 Unknown History lamotrigine 25 mg tablet 50 mg PO BID 12/15/24 12/15/24 Unknown History lorazepam 0.5 mg tablet 0.5 mg PO BID 12/15/24 12/15/24 Unknown History olanzapine 15 mg tablet 30 mg PO BEDTIME 12/15/24 12/15/24 Unknown History propranolol 20 mg tablet 20 mg PO TID 12/15/24 12/15/24 Unknown History quetiapine 200 mg tablet 200 mg PO TID 12/15/24 12/15/24 Unknown History Exam Height,Weight and Vital Signs: Height 6 ft Weight 99.79 kg Last Vital Signs Temp 98.2 F 12/24/24 06:51 Pulse 92 12/24/24 06:51 Resp 24 H 12/24/24 06:51 BP 134/91 H 12/24/24 06:51 Pulse Ox 93 12/24/24 06:51 O2 Del Method Room Air 12/24/24 06:51 O2 Flow Rate 2 12/22/24 13:33 Pertinent Lab Results Pertinent Lab Results: Laboratory Tests 12/14/24 12/14/24 12/14/24 17:09 17:10 17:11 WBC RBC Hgb Hct MCV MCH MCHC RDW Plt Count MPV Immature Gran % (Auto) Neut % (Auto) Lymph % (Auto) [place] % (Auto) Eos % (Auto) Baso % (Auto) Lymph # (Auto) [place] # (Auto) Eos # (Auto) Baso # (Auto) Abs Immat Gran (auto) Absolute Neuts (auto) Absolute Nucleated RBC Nucleated RBC % (auto) Hold Purple Top PT 13.0 H INR 1.1 D-Dimer High Sensitivty < 150 VBG pH VBG pCO2 VBG pO2 VBG HCO3 VBG O2 Saturation VBG Base Excess Sodium Potassium Chloride Carbon Dioxide Anion Gap BUN Creatinine Estim Creat Clear Calc Estimated GFR POC Glucose Random Glucose Osmolality 303 Lactic Acid Calcium Phosphorus Magnesium Total Bilirubin Direct Bilirubin AST ALT Alkaline Phosphatase Ammonia Total Creatine Kinase Troponin I High Sens 28.6 C-Reactive Protein B-Natriuretic Peptide Total Protein Albumin Triglycerides Lipase TSH Hold Green Top See Note Urine Color Urine Appearance Urine pH Ur Specific [place] Urine Protein Urine Glucose (UA) Urine Ketones Urine Blood Urine Nitrite Ur Leukocyte Esterase CSF Tube Number CSF Volume CSF Appearance CSF Color CSF WBC CSF RBC CSF Neutrophils CSF Lymphocytes CSF Monocytes % CSF Appearance (b) CSF Total Protein CSF C.neoform/gat PCR CSF CMV DNA (PCR) CSF Enterovirus (PCR) CSF E. coli K1 (PCR) CSF H. influenzae (PCR) CSF HSV I (PCR) CSF HSV II (PCR) CSF HHV 6 (PCR) CSF L.monocytogenes PCR CSF N. meningitidis PCR CSF Parechovirus (PCR) CSF S. agalactiae (PCR) CSF S. pneumoniae (PCR) CSF VZV (PCR) Nasal Screen MRSA (PCR) Nasal S. aureus Screen Nasal MRSA/S.aureus Interp Salicylates < 5.0 L Urine Opiates Screen Ur Buprenorphine Scrn Ur Oxycodone Screen Urine Methadone Screen Urine Fentanyl Screen Acetaminophen < 3 Ur Barbiturates Screen Lamotrigine 1.8 L Ur Phencyclidine Scrn Ur Amphetamines Screen U Benzodiazepines Scrn Urine Cocaine Screen U Marijuana (THC) Screen Ethyl Alcohol Influenza Type A (PCR) NEGATIVE Influenza Type B (PCR) NEGATIVE RSV RNA Qual (PCR) NEGATIVE SARS-CoV-2 RNA (RT-PCR) NEGATIVE 12/14/24 12/14/24 12/14/24 17:12 17:16 17:19 WBC 16.9 H RBC 5.52 Hgb 18.2 H Hct 49.3 MCV 89.3 MCH 33.0 MCHC 36.9 H RDW 12.1 Plt Count 256 MPV 10.7 Immature Gran % (Auto) 0.4 Neut % (Auto) 81.6 H Lymph % (Auto) 12.1 L [place] % (Auto) 5.6 Eos % (Auto) 0.1 Baso % (Auto) 0.2 Lymph # (Auto) 2.1 [place] # (Auto) 0.9 Eos # (Auto) 0.0 Baso # (Auto) 0.0 Abs Immat Gran (auto) 0.06 H Absolute Neuts (auto) 13.8 H Absolute Nucleated RBC 0.000 Nucleated RBC % (auto) 0.0 Hold Purple Top SEE NOTE PT INR D-Dimer High Sensitivty VBG pH 7.38 VBG pCO2 31 VBG pO2 81 VBG HCO3 19 L VBG O2 Saturation 96.0 VBG Base Excess -4.5 Sodium 144 Potassium 4.6 Chloride 109 H Carbon Dioxide 20 L Anion Gap 20 BUN 25 H Creatinine 1.24 Estim Creat Clear Calc 100.7 Estimated GFR > 60 POC Glucose Random Glucose 113 Osmolality Lactic Acid 1.0 Calcium 9.7 Phosphorus Magnesium 2.5 Total Bilirubin 1.0 Direct Bilirubin 0.4 AST 41 H ALT 36 Alkaline Phosphatase 85 Ammonia 49 Total Creatine Kinase 518 H Troponin I High Sens C-Reactive Protein 1.48 H B-Natriuretic Peptide < 10 Total Protein 7.9 Albumin 4.8 Triglycerides Lipase 13 TSH 0.66 Hold Green Top Urine Color Urine Appearance Urine pH Ur Specific [place] Urine Protein Urine Glucose (UA) Urine Ketones Urine Blood Urine Nitrite Ur Leukocyte Esterase CSF Tube Number CSF Volume CSF Appearance CSF Color CSF WBC CSF RBC CSF Neutrophils CSF Lymphocytes CSF Monocytes % CSF Appearance (b) CSF Total Protein CSF C.neoform/gat PCR CSF CMV DNA (PCR) CSF Enterovirus (PCR) CSF E. coli K1 (PCR) CSF H. influenzae (PCR) CSF HSV I (PCR) CSF HSV II (PCR) CSF HHV 6 (PCR) CSF L.monocytogenes PCR CSF N. meningitidis PCR CSF Parechovirus (PCR) CSF S. agalactiae (PCR) CSF S. pneumoniae (PCR) CSF VZV (PCR) Nasal Screen MRSA (PCR) Nasal S. aureus Screen Nasal MRSA/S.aureus Interp Salicylates Urine Opiates Screen Ur Buprenorphine Scrn Ur Oxycodone Screen Urine Methadone Screen Urine Fentanyl Screen Acetaminophen Ur Barbiturates Screen Lamotrigine Ur Phencyclidine Scrn Ur Amphetamines Screen U Benzodiazepines Scrn Urine Cocaine Screen U Marijuana (THC) Screen Ethyl Alcohol < 10 Influenza Type A (PCR) Influenza Type B (PCR) RSV RNA Qual (PCR) SARS-CoV-2 RNA (RT-PCR) 12/14/24 12/14/24 12/15/24 20:36 22:26 17:26 WBC 13.5 H RBC 4.61 Hgb 14.8 Hct 42.7 MCV 92.6 MCH 32.1 MCHC 34.7 RDW 12.3 Plt Count 178 D MPV 10.7 Immature Gran % (Auto) 0.4 Neut % (Auto) 77.9 H Lymph % (Auto) 15.2 L [place] % (Auto) 6.2 Eos % (Auto) 0.1 Baso % (Auto) 0.2 Lymph # (Auto) 2.1 [place] # (Auto) 0.8 Eos # (Auto) 0.0 Baso # (Auto) 0.0 Abs Immat Gran (auto) 0.06 H Absolute Neuts (auto) 10.5 H Absolute Nucleated RBC 0.000 Nucleated RBC % (auto) 0.0 Hold Purple Top PT INR D-Dimer High Sensitivty VBG pH VBG pCO2 VBG pO2 VBG HCO3 VBG O2 Saturation VBG Base Excess Sodium 141 Potassium 3.4 D Chloride 108 Carbon Dioxide 27 Anion Gap 9 L BUN 13 Creatinine 0.85 Estim Creat Clear Calc 146.9 Estimated GFR > 60 POC Glucose Random Glucose 166 H Osmolality Lactic Acid Calcium 8.4 D Phosphorus Magnesium Total Bilirubin 1.0 Direct Bilirubin AST 32 ALT 22 Alkaline Phosphatase 66 Ammonia Total Creatine Kinase 416 H Troponin I High Sens 13.5 D C-Reactive Protein 3.76 H B-Natriuretic Peptide Total Protein 6.0 L Albumin 3.7 Triglycerides Lipase TSH Hold Green Top Urine Color Yellow Urine Appearance Clear Urine pH 6.0 Ur Specific [place] >= 1.030 H Urine Protein Trace Urine Glucose (UA) Negative Urine Ketones 80 Urine Blood Negative Urine Nitrite Negative Ur Leukocyte Esterase Negative CSF Tube Number CSF Volume CSF Appearance CSF Color CSF WBC CSF RBC CSF Neutrophils CSF Lymphocytes CSF Monocytes % CSF Appearance (b) CSF Total Protein CSF C.neoform/gat PCR CSF CMV DNA (PCR) CSF Enterovirus (PCR) CSF E. coli K1 (PCR) CSF H. influenzae (PCR) CSF HSV I (PCR) CSF HSV II (PCR) CSF HHV 6 (PCR) CSF L.monocytogenes PCR CSF N. meningitidis PCR CSF Parechovirus (PCR) CSF S. agalactiae (PCR) CSF S. pneumoniae (PCR) CSF VZV (PCR) Nasal Screen MRSA (PCR) Nasal S. aureus Screen Nasal MRSA/S.aureus Interp Salicylates Urine Opiates Screen Not Detected Ur Buprenorphine Scrn Not Detected Ur Oxycodone Screen Not Detected Urine Methadone Screen Not Detected Urine Fentanyl Screen Not Detected Acetaminophen Ur Barbiturates Screen Not Detected Lamotrigine Ur Phencyclidine Scrn Not Detected Ur Amphetamines Screen Not Detected U Benzodiazepines Scrn POSITIVE H Urine Cocaine Screen Not Detected U Marijuana (THC) Screen Not Detected Ethyl Alcohol Influenza Type A (PCR) Influenza Type B (PCR) RSV RNA Qual (PCR) SARS-CoV-2 RNA (RT-PCR) 12/15/24 12/15/24 12/15/24 19:29 19:47 23:06 WBC RBC Hgb Hct MCV MCH MCHC RDW Plt Count MPV Immature Gran % (Auto) Neut % (Auto) Lymph % (Auto) [place] % (Auto) Eos % (Auto) Baso % (Auto) Lymph # (Auto) [place] # (Auto) Eos # (Auto) Baso # (Auto) Abs Immat Gran (auto) Absolute Neuts (auto) Absolute Nucleated RBC Nucleated RBC % (auto) Hold Purple Top PT INR D-Dimer High Sensitivty VBG pH VBG pCO2 VBG pO2 VBG HCO3 VBG O2 Saturation VBG Base Excess Sodium Potassium Chloride Carbon Dioxide Anion Gap BUN Creatinine Estim Creat Clear Calc Estimated GFR POC Glucose Random Glucose Osmolality Lactic Acid 1.3 1.3 Calcium Phosphorus Magnesium Total Bilirubin Direct Bilirubin AST ALT Alkaline Phosphatase Ammonia Total Creatine Kinase Troponin I High Sens C-Reactive Protein B-Natriuretic Peptide Total Protein Albumin Triglycerides Lipase TSH Hold Green Top Urine Color Urine Appearance Urine pH Ur Specific [place] Urine Protein Urine Glucose (UA) Urine Ketones Urine Blood Urine Nitrite Ur Leukocyte Esterase CSF Tube Number CSF Volume CSF Appearance CSF Color CSF WBC CSF RBC CSF Neutrophils CSF Lymphocytes CSF Monocytes % CSF Appearance (b) CSF Total Protein CSF C.neoform/gat PCR CSF CMV DNA (PCR) CSF Enterovirus (PCR) CSF E. coli K1 (PCR) CSF H. influenzae (PCR) CSF HSV I (PCR) CSF HSV II (PCR) CSF HHV 6 (PCR) CSF L.monocytogenes PCR CSF N. meningitidis PCR CSF Parechovirus (PCR) CSF S. agalactiae (PCR) CSF S. pneumoniae (PCR) CSF VZV (PCR) Nasal Screen MRSA (PCR) NEGATIVE Nasal S. aureus Screen NEGATIVE Nasal MRSA/S.aureus Interp SEE NOTE Salicylates Urine Opiates Screen Ur Buprenorphine Scrn Ur Oxycodone Screen Urine Methadone Screen Urine Fentanyl Screen Acetaminophen Ur Barbiturates Screen Lamotrigine Ur Phencyclidine Scrn Ur Amphetamines Screen U Benzodiazepines Scrn Urine Cocaine Screen U Marijuana (THC) Screen Ethyl Alcohol Influenza Type A (PCR) Influenza Type B (PCR) RSV RNA Qual (PCR) SARS-CoV-2 RNA (RT-PCR) 12/16/24 12/16/24 12/16/24 04:47 15:44 15:44 WBC 11.3 H RBC 4.36 L Hgb 14.5 Hct 39.6 L MCV 90.8 MCH 33.3 H MCHC 36.6 H RDW 12.3 Plt Count 176 MPV 11.3 Immature Gran % (Auto) 0.4 Neut % (Auto) 79.3 H Lymph % (Auto) 13.0 L [place] % (Auto) 6.9 Eos % (Auto) 0.1 Baso % (Auto) 0.3 Lymph # (Auto) 1.5 [place] # (Auto) 0.8 Eos # (Auto) 0.0 Baso # (Auto) 0.0 Abs Immat Gran (auto) 0.04 H Absolute Neuts (auto) 9.0 H Absolute Nucleated RBC 0.000 Nucleated RBC % (auto) 0.0 Hold Purple Top PT INR D-Dimer High Sensitivty VBG pH VBG pCO2 VBG pO2 VBG HCO3 VBG O2 Saturation VBG Base Excess Sodium 141 Potassium 3.7 Chloride 109 H Carbon Dioxide 23 Anion Gap 13 BUN 8 L Creatinine 0.74 Estim Creat Clear Calc 168.7 Estimated GFR > 60 POC Glucose Random Glucose 135 H Osmolality Lactic Acid Calcium 8.5 Phosphorus Magnesium Total Bilirubin Direct Bilirubin AST ALT Alkaline Phosphatase Ammonia Total Creatine Kinase Troponin I High Sens C-Reactive Protein B-Natriuretic Peptide Total Protein Albumin Triglycerides Lipase TSH Hold Green Top Urine Color Urine Appearance Urine pH Ur Specific [place] Urine Protein Urine Glucose (UA) Urine Ketones Urine Blood Urine Nitrite Ur Leukocyte Esterase CSF Tube Number 1 4 CSF Volume 3.0 CSF Appearance HAZY CSF Color PINK CSF WBC 11 H* CSF RBC 2962 CSF Neutrophils 68 CSF Lymphocytes 30 CSF Monocytes % 2 CSF Appearance (b) Clear, Colorless CSF Total Protein 29.3 CSF C.neoform/gat PCR Not Detected CSF CMV DNA (PCR) Not Detected CSF Enterovirus (PCR) Not Detected CSF E. coli K1 (PCR) Not Detected CSF H. influenzae (PCR) Not Detected CSF HSV I (PCR) Not Detected CSF HSV II (PCR) Not Detected CSF HHV 6 (PCR) Not Detected CSF L.monocytogenes PCR Not Detected CSF N. meningitidis PCR Not Detected CSF Parechovirus (PCR) Not Detected CSF S. agalactiae (PCR) Not Detected CSF S. pneumoniae (PCR) Not Detected CSF VZV (PCR) Not Detected Nasal Screen MRSA (PCR) Nasal S. aureus Screen Nasal MRSA/S.aureus Interp Salicylates Urine Opiates Screen Ur Buprenorphine Scrn Ur Oxycodone Screen Urine Methadone Screen Urine Fentanyl Screen Acetaminophen Ur Barbiturates Screen Lamotrigine Ur Phencyclidine Scrn Ur Amphetamines Screen U Benzodiazepines Scrn Urine Cocaine Screen U Marijuana (THC) Screen Ethyl Alcohol Influenza Type A (PCR) Influenza Type B (PCR) RSV RNA Qual (PCR) SARS-CoV-2 RNA (RT-PCR) 12/17/24 12/17/24 12/17/24 05:44 06:30 21:57 WBC 8.6 RBC 4.72 Hgb 15.5 Hct 42.6 MCV 90.3 MCH 32.8 MCHC 36.4 H RDW 11.9 Plt Count 173 MPV 11.7 Immature Gran % (Auto) Neut % (Auto) Lymph % (Auto) [place] % (Auto) Eos % (Auto) Baso % (Auto) Lymph # (Auto) [place] # (Auto) Eos # (Auto) Baso # (Auto) Abs Immat Gran (auto) Absolute Neuts (auto) Absolute Nucleated RBC 0.000 Nucleated RBC % (auto) 0.0 Hold Purple Top PT INR D-Dimer High Sensitivty VBG pH VBG pCO2 VBG pO2 VBG HCO3 VBG O2 Saturation VBG Base Excess Sodium 141 Potassium 3.7 Chloride 109 H Carbon Dioxide 23 Anion Gap 13 BUN 6 L Creatinine 0.75 Estim Creat Clear Calc 166.5 Estimated GFR > 60 POC Glucose 83 74 Random Glucose 83 Osmolality Lactic Acid Calcium 8.8 Phosphorus Magnesium Total Bilirubin Direct Bilirubin AST ALT Alkaline Phosphatase Ammonia Total Creatine Kinase Troponin I High Sens C-Reactive Protein B-Natriuretic Peptide Total Protein Albumin Triglycerides Lipase TSH Hold Green Top Urine Color Urine Appearance Urine pH Ur Specific [place] Urine Protein Urine Glucose (UA) Urine Ketones Urine Blood Urine Nitrite Ur Leukocyte Esterase CSF Tube Number CSF Volume CSF Appearance CSF Color CSF WBC CSF RBC CSF Neutrophils CSF Lymphocytes CSF Monocytes % CSF Appearance (b) CSF Total Protein CSF C.neoform/gat PCR CSF CMV DNA (PCR) CSF Enterovirus (PCR) CSF E. coli K1 (PCR) CSF H. influenzae (PCR) CSF HSV I (PCR) CSF HSV II (PCR) CSF HHV 6 (PCR) CSF L.monocytogenes PCR CSF N. meningitidis PCR CSF Parechovirus (PCR) CSF S. agalactiae (PCR) CSF S. pneumoniae (PCR) CSF VZV (PCR) Nasal Screen MRSA (PCR) Nasal S. aureus Screen Nasal MRSA/S.aureus Interp Salicylates Urine Opiates Screen Ur Buprenorphine Scrn Ur Oxycodone Screen Urine Methadone Screen Urine Fentanyl Screen Acetaminophen Ur Barbiturates Screen Lamotrigine Ur Phencyclidine Scrn Ur Amphetamines Screen U Benzodiazepines Scrn Urine Cocaine Screen U Marijuana (THC) Screen Ethyl Alcohol Influenza Type A (PCR) Influenza Type B (PCR) RSV RNA Qual (PCR) SARS-CoV-2 RNA (RT-PCR) 12/18/24 12/18/24 12/18/24 04:11 06:58 07:28 WBC 8.4 RBC 4.53 L Hgb 14.9 Hct 40.1 L MCV 88.5 MCH 32.9 MCHC 37.2 H RDW 11.9 Plt Count 182 MPV 10.8 Immature Gran % (Auto) 0.6 H Neut % (Auto) 75.8 H Lymph % (Auto) 17.2 L [place] % (Auto) 5.4 Eos % (Auto) 0.6 Baso % (Auto) 0.4 Lymph # (Auto) 1.4 [place] # (Auto) 0.5 Eos # (Auto) 0.1 Baso # (Auto) 0.0 Abs Immat Gran (auto) 0.05 H Absolute Neuts (auto) 6.4 Absolute Nucleated RBC 0.000 Nucleated RBC % (auto) 0.0 Hold Purple Top PT INR D-Dimer High Sensitivty VBG pH VBG pCO2 VBG pO2 VBG HCO3 VBG O2 Saturation VBG Base Excess Sodium 141 Potassium 3.6 Chloride 108 Carbon Dioxide 21 L Anion Gap 16 BUN 9 Creatinine 0.69 Estim Creat Clear Calc 181.0 Estimated GFR > 60 POC Glucose 85 93 Random Glucose 80 Osmolality Lactic Acid Calcium 8.8 Phosphorus Magnesium Total Bilirubin Direct Bilirubin AST ALT Alkaline Phosphatase Ammonia Total Creatine Kinase Troponin I High Sens C-Reactive Protein B-Natriuretic Peptide Total Protein Albumin Triglycerides Lipase TSH Hold Green Top Urine Color Urine Appearance Urine pH Ur Specific [place] Urine Protein Urine Glucose (UA) Urine Ketones Urine Blood Urine Nitrite Ur Leukocyte Esterase CSF Tube Number CSF Volume CSF Appearance CSF Color CSF WBC CSF RBC CSF Neutrophils CSF Lymphocytes CSF Monocytes % CSF Appearance (b) CSF Total Protein CSF C.neoform/gat PCR CSF CMV DNA (PCR) CSF Enterovirus (PCR) CSF E. coli K1 (PCR) CSF H. influenzae (PCR) CSF HSV I (PCR) CSF HSV II (PCR) CSF HHV 6 (PCR) CSF L.monocytogenes PCR CSF N. meningitidis PCR CSF Parechovirus (PCR) CSF S. agalactiae (PCR) CSF S. pneumoniae (PCR) CSF VZV (PCR) Nasal Screen MRSA (PCR) Nasal S. aureus Screen Nasal MRSA/S.aureus Interp Salicylates Urine Opiates Screen Ur Buprenorphine Scrn Ur Oxycodone Screen Urine Methadone Screen Urine Fentanyl Screen Acetaminophen Ur Barbiturates Screen Lamotrigine Ur Phencyclidine Scrn Ur Amphetamines Screen U Benzodiazepines Scrn Urine Cocaine Screen U Marijuana (THC) Screen Ethyl Alcohol Influenza Type A (PCR) Influenza Type B (PCR) RSV RNA Qual (PCR) SARS-CoV-2 RNA (RT-PCR) 12/18/24 12/18/24 12/19/24 14:37 20:05 03:47 WBC RBC Hgb Hct MCV MCH MCHC RDW Plt Count MPV Immature Gran % (Auto) Neut % (Auto) Lymph % (Auto) [place] % (Auto) Eos % (Auto) Baso % (Auto) Lymph # (Auto) [place] # (Auto) Eos # (Auto) Baso # (Auto) Abs Immat Gran (auto) Absolute Neuts (auto) Absolute Nucleated RBC Nucleated RBC % (auto) Hold Purple Top PT INR D-Dimer High Sensitivty VBG pH VBG pCO2 VBG pO2 VBG HCO3 VBG O2 Saturation VBG Base Excess Sodium Potassium Chloride Carbon Dioxide Anion Gap BUN Creatinine Estim Creat Clear Calc Estimated GFR POC Glucose 89 116 H 123 H Random Glucose Osmolality Lactic Acid Calcium Phosphorus Magnesium Total Bilirubin Direct Bilirubin AST ALT Alkaline Phosphatase Ammonia Total Creatine Kinase Troponin I High Sens C-Reactive Protein B-Natriuretic Peptide Total Protein Albumin Triglycerides Lipase TSH Hold Green Top Urine Color Urine Appearance Urine pH Ur Specific [place] Urine Protein Urine Glucose (UA) Urine Ketones Urine Blood Urine Nitrite Ur Leukocyte Esterase CSF Tube Number CSF Volume CSF Appearance CSF Color CSF WBC CSF RBC CSF Neutrophils CSF Lymphocytes CSF Monocytes % CSF Appearance (b) CSF Total Protein CSF C.neoform/gat PCR CSF CMV DNA (PCR) CSF Enterovirus (PCR) CSF E. coli K1 (PCR) CSF H. influenzae (PCR) CSF HSV I (PCR) CSF HSV II (PCR) CSF HHV 6 (PCR) CSF L.monocytogenes PCR CSF N. meningitidis PCR CSF Parechovirus (PCR) CSF S. agalactiae (PCR) CSF S. pneumoniae (PCR) CSF VZV (PCR) Nasal Screen MRSA (PCR) Nasal S. aureus Screen Nasal MRSA/S.aureus Interp Salicylates Urine Opiates Screen Ur Buprenorphine Scrn Ur Oxycodone Screen Urine Methadone Screen Urine Fentanyl Screen Acetaminophen Ur Barbiturates Screen Lamotrigine Ur Phencyclidine Scrn Ur Amphetamines Screen U Benzodiazepines Scrn Urine Cocaine Screen U Marijuana (THC) Screen Ethyl Alcohol Influenza Type A (PCR) Influenza Type B (PCR) RSV RNA Qual (PCR) SARS-CoV-2 RNA (RT-PCR) 12/19/24 12/19/24 12/19/24 07:19 09:05 16:39 WBC 7.7 RBC 4.53 L Hgb 14.7 Hct 39.3 L MCV 86.8 MCH 32.5 MCHC 37.4 H RDW 11.8 Plt Count 206 MPV 10.6 Immature Gran % (Auto) 0.4 Neut % (Auto) 63.7 Lymph % (Auto) 26.3 [place] % (Auto) 8.3 Eos % (Auto) 1.0 Baso % (Auto) 0.3 Lymph # (Auto) 2.0 [place] # (Auto) 0.6 Eos # (Auto) 0.1 Baso # (Auto) 0.0 Abs Immat Gran (auto) 0.03 Absolute Neuts (auto) 4.9 Absolute Nucleated RBC 0.000 Nucleated RBC % (auto) 0.0 Hold Purple Top PT INR D-Dimer High Sensitivty VBG pH VBG pCO2 VBG pO2 VBG HCO3 VBG O2 Saturation VBG Base Excess Sodium 140 Potassium 3.6 Chloride 107 Carbon Dioxide 22 Anion Gap 15 BUN 8 L Creatinine 0.73 Estim Creat Clear Calc 171.1 Estimated GFR > 60 POC Glucose 115 123 H Random Glucose 101 Osmolality Lactic Acid Calcium 8.7 Phosphorus Magnesium Total Bilirubin 1.0 Direct Bilirubin 0.4 AST 28 ALT 13 Alkaline Phosphatase 58 Ammonia Total Creatine Kinase 234 H Troponin I High Sens C-Reactive Protein B-Natriuretic Peptide Total Protein 6.3 L Albumin 3.7 Triglycerides Lipase TSH Hold Green Top Urine Color Urine Appearance Urine pH Ur Specific [place] Urine Protein Urine Glucose (UA) Urine Ketones Urine Blood Urine Nitrite Ur Leukocyte Esterase CSF Tube Number CSF Volume CSF Appearance CSF Color CSF WBC CSF RBC CSF Neutrophils CSF Lymphocytes CSF Monocytes % CSF Appearance (b) CSF Total Protein CSF C.neoform/gat PCR CSF CMV DNA (PCR) CSF Enterovirus (PCR) CSF E. coli K1 (PCR) CSF H. influenzae (PCR) CSF HSV I (PCR) CSF HSV II (PCR) CSF HHV 6 (PCR) CSF L.monocytogenes PCR CSF N. meningitidis PCR CSF Parechovirus (PCR) CSF S. agalactiae (PCR) CSF S. pneumoniae (PCR) CSF VZV (PCR) Nasal Screen MRSA (PCR) Nasal S. aureus Screen Nasal MRSA/S.aureus Interp Salicylates Urine Opiates Screen Ur Buprenorphine Scrn Ur Oxycodone Screen Urine Methadone Screen Urine Fentanyl Screen Acetaminophen Ur Barbiturates Screen Lamotrigine Ur Phencyclidine Scrn Ur Amphetamines Screen U Benzodiazepines Scrn Urine Cocaine Screen U Marijuana (THC) Screen Ethyl Alcohol Influenza Type A (PCR) Influenza Type B (PCR) RSV RNA Qual (PCR) SARS-CoV-2 RNA (RT-PCR) 12/19/24 12/20/24 12/20/24 19:56 04:35 06:23 WBC 9.0 RBC 4.45 L Hgb 14.4 Hct 39.1 L MCV 87.9 MCH 32.4 MCHC 36.8 H RDW 11.8 Plt Count 208 MPV 10.8 Immature Gran % (Auto) 0.4 Neut % (Auto) 66.6 Lymph % (Auto) 22.9 [place] % (Auto) 8.5 Eos % (Auto) 1.3 Baso % (Auto) 0.3 Lymph # (Auto) 2.1 [place] # (Auto) 0.8 Eos # (Auto) 0.1 Baso # (Auto) 0.0 Abs Immat Gran (auto) 0.04 H Absolute Neuts (auto) 6.0 Absolute Nucleated RBC 0.000 Nucleated RBC % (auto) 0.0 Hold Purple Top PT INR D-Dimer High Sensitivty VBG pH VBG pCO2 VBG pO2 VBG HCO3 VBG O2 Saturation VBG Base Excess Sodium 139 Potassium 3.0 L Chloride 106 Carbon Dioxide 23 Anion Gap 13 BUN 5 L Creatinine 0.70 Estim Creat Clear Calc 178.4 Estimated GFR > 60 POC Glucose 101 114 Random Glucose 118 H Osmolality Lactic Acid Calcium 8.7 Phosphorus Magnesium Total Bilirubin Direct Bilirubin AST ALT Alkaline Phosphatase Ammonia Total Creatine Kinase Troponin I High Sens C-Reactive Protein B-Natriuretic Peptide Total Protein Albumin Triglycerides Lipase TSH Hold Green Top Urine Color Urine Appearance Urine pH Ur Specific [place] Urine Protein Urine Glucose (UA) Urine Ketones Urine Blood Urine Nitrite Ur Leukocyte Esterase CSF Tube Number CSF Volume CSF Appearance CSF Color CSF WBC CSF RBC CSF Neutrophils CSF Lymphocytes CSF Monocytes % CSF Appearance (b) CSF Total Protein CSF C.neoform/gat PCR CSF CMV DNA (PCR) CSF Enterovirus (PCR) CSF E. coli K1 (PCR) CSF H. influenzae (PCR) CSF HSV I (PCR) CSF HSV II (PCR) CSF HHV 6 (PCR) CSF L.monocytogenes PCR CSF N. meningitidis PCR CSF Parechovirus (PCR) CSF S. agalactiae (PCR) CSF S. pneumoniae (PCR) CSF VZV (PCR) Nasal Screen MRSA (PCR) Nasal S. aureus Screen Nasal MRSA/S.aureus Interp Salicylates Urine Opiates Screen Ur Buprenorphine Scrn Ur Oxycodone Screen Urine Methadone Screen Urine Fentanyl Screen Acetaminophen Ur Barbiturates Screen Lamotrigine Ur Phencyclidine Scrn Ur Amphetamines Screen U Benzodiazepines Scrn Urine Cocaine Screen U Marijuana (THC) Screen Ethyl Alcohol Influenza Type A (PCR) Influenza Type B (PCR) RSV RNA Qual (PCR) SARS-CoV-2 RNA (RT-PCR) 12/20/24 12/20/24 12/20/24 08:48 10:35 16:17 WBC RBC Hgb Hct MCV MCH MCHC RDW Plt Count MPV Immature Gran % (Auto) Neut % (Auto) Lymph % (Auto) [place] % (Auto) Eos % (Auto) Baso % (Auto) Lymph # (Auto) [place] # (Auto) Eos # (Auto) Baso # (Auto) Abs Immat Gran (auto) Absolute Neuts (auto) Absolute Nucleated RBC Nucleated RBC % (auto) Hold Purple Top PT INR D-Dimer High Sensitivty VBG pH VBG pCO2 VBG pO2 VBG HCO3 VBG O2 Saturation VBG Base Excess Sodium Potassium Chloride Carbon Dioxide Anion Gap BUN Creatinine Estim Creat Clear Calc Estimated GFR POC Glucose 121 H 127 H Random Glucose Osmolality Lactic Acid Calcium Phosphorus 2.7 Magnesium 1.7 Total Bilirubin Direct Bilirubin AST ALT Alkaline Phosphatase Ammonia Total Creatine Kinase Troponin I High Sens C-Reactive Protein B-Natriuretic Peptide Total Protein Albumin 3.6 Triglycerides Lipase TSH Hold Green Top Urine Color Urine Appearance Urine pH Ur Specific [place] Urine Protein Urine Glucose (UA) Urine Ketones Urine Blood Urine Nitrite Ur Leukocyte Esterase CSF Tube Number CSF Volume CSF Appearance CSF Color CSF WBC CSF RBC CSF Neutrophils CSF Lymphocytes CSF Monocytes % CSF Appearance (b) CSF Total Protein CSF C.neoform/gat PCR CSF CMV DNA (PCR) CSF Enterovirus (PCR) CSF E. coli K1 (PCR) CSF H. influenzae (PCR) CSF HSV I (PCR) CSF HSV II (PCR) CSF HHV 6 (PCR) CSF L.monocytogenes PCR CSF N. meningitidis PCR CSF Parechovirus (PCR) CSF S. agalactiae (PCR) CSF S. pneumoniae (PCR) CSF VZV (PCR) Nasal Screen MRSA (PCR) Nasal S. aureus Screen Nasal MRSA/S.aureus Interp Salicylates Urine Opiates Screen Ur Buprenorphine Scrn Ur Oxycodone Screen Urine Methadone Screen Urine Fentanyl Screen Acetaminophen Ur Barbiturates Screen Lamotrigine Ur Phencyclidine Scrn Ur Amphetamines Screen U Benzodiazepines Scrn Urine Cocaine Screen U Marijuana (THC) Screen Ethyl Alcohol Influenza Type A (PCR) Influenza Type B (PCR) RSV RNA Qual (PCR) SARS-CoV-2 RNA (RT-PCR) 12/21/24 12/21/24 12/21/24 00:13 06:53 07:18 WBC RBC Hgb Hct MCV MCH MCHC RDW Plt Count MPV Immature Gran % (Auto) Neut % (Auto) Lymph % (Auto) [place] % (Auto) Eos % (Auto) Baso % (Auto) Lymph # (Auto) [place] # (Auto) Eos # (Auto) Baso # (Auto) Abs Immat Gran (auto) Absolute Neuts (auto) Absolute Nucleated RBC Nucleated RBC % (auto) Hold Purple Top PT INR D-Dimer High Sensitivty VBG pH VBG pCO2 VBG pO2 VBG HCO3 VBG O2 Saturation VBG Base Excess Sodium 141 Potassium 3.2 L Chloride 108 Carbon Dioxide 24 Anion Gap 12 BUN 7 L Creatinine 0.74 Estim Creat Clear Calc 168.7 Estimated GFR > 60 POC Glucose 113 126 H Random Glucose 119 H Osmolality Lactic Acid Calcium 8.9 Phosphorus 3.6 Magnesium 2.0 Total Bilirubin Direct Bilirubin AST ALT Alkaline Phosphatase Ammonia Total Creatine Kinase Troponin I High Sens C-Reactive Protein B-Natriuretic Peptide Total Protein Albumin 3.6 Triglycerides 166 H Lipase TSH Hold Green Top Urine Color Urine Appearance Urine pH Ur Specific [place] Urine Protein Urine Glucose (UA) Urine Ketones Urine Blood Urine Nitrite Ur Leukocyte Esterase CSF Tube Number CSF Volume CSF Appearance CSF Color CSF WBC CSF RBC CSF Neutrophils CSF Lymphocytes CSF Monocytes % CSF Appearance (b) CSF Total Protein CSF C.neoform/gat PCR CSF CMV DNA (PCR) CSF Enterovirus (PCR) CSF E. coli K1 (PCR) CSF H. influenzae (PCR) CSF HSV I (PCR) CSF HSV II (PCR) CSF HHV 6 (PCR) CSF L.monocytogenes PCR CSF N. meningitidis PCR CSF Parechovirus (PCR) CSF S. agalactiae (PCR) CSF S. pneumoniae (PCR) CSF VZV (PCR) Nasal Screen MRSA (PCR) Nasal S. aureus Screen Nasal MRSA/S.aureus Interp Salicylates Urine Opiates Screen Ur Buprenorphine Scrn Ur Oxycodone Screen Urine Methadone Screen Urine Fentanyl Screen Acetaminophen Ur Barbiturates Screen Lamotrigine Ur Phencyclidine Scrn Ur Amphetamines Screen U Benzodiazepines Scrn Urine Cocaine Screen U Marijuana (THC) Screen Ethyl Alcohol Influenza Type A (PCR) Influenza Type B (PCR) RSV RNA Qual (PCR) SARS-CoV-2 RNA (RT-PCR) 12/21/24 12/21/24 12/21/24 08:09 10:46 16:42 WBC 8.7 RBC 4.56 L Hgb 14.9 Hct 40.0 L MCV 87.7 MCH 32.7 MCHC 37.3 H RDW 11.9 Plt Count 209 MPV 10.7 Immature Gran % (Auto) Neut % (Auto) Lymph % (Auto) [place] % (Auto) Eos % (Auto) Baso % (Auto) Lymph # (Auto) [place] # (Auto) Eos # (Auto) Baso # (Auto) Abs Immat Gran (auto) Absolute Neuts (auto) Absolute Nucleated RBC 0.000 Nucleated RBC % (auto) 0.0 Hold Purple Top PT INR D-Dimer High Sensitivty VBG pH VBG pCO2 VBG pO2 VBG HCO3 VBG O2 Saturation VBG Base Excess Sodium Potassium Chloride Carbon Dioxide Anion Gap BUN Creatinine Estim Creat Clear Calc Estimated GFR POC Glucose 114 119 H Random Glucose Osmolality Lactic Acid Calcium Phosphorus Magnesium Total Bilirubin Direct Bilirubin AST ALT Alkaline Phosphatase Ammonia Total Creatine Kinase Troponin I High Sens C-Reactive Protein B-Natriuretic Peptide Total Protein Albumin Triglycerides Lipase TSH Hold Green Top Urine Color Urine Appearance Urine pH Ur Specific [place] Urine Protein Urine Glucose (UA) Urine Ketones Urine Blood Urine Nitrite Ur Leukocyte Esterase CSF Tube Number CSF Volume CSF Appearance CSF Color CSF WBC CSF RBC CSF Neutrophils CSF Lymphocytes CSF Monocytes % CSF Appearance (b) CSF Total Protein CSF C.neoform/gat PCR CSF CMV DNA (PCR) CSF Enterovirus (PCR) CSF E. coli K1 (PCR) CSF H. influenzae (PCR) CSF HSV I (PCR) CSF HSV II (PCR) CSF HHV 6 (PCR) CSF L.monocytogenes PCR CSF N. meningitidis PCR CSF Parechovirus (PCR) CSF S. agalactiae (PCR) CSF S. pneumoniae (PCR) CSF VZV (PCR) Nasal Screen MRSA (PCR) Nasal S. aureus Screen Nasal MRSA/S.aureus Interp Salicylates Urine Opiates Screen Ur Buprenorphine Scrn Ur Oxycodone Screen Urine Methadone Screen Urine Fentanyl Screen Acetaminophen Ur Barbiturates Screen Lamotrigine Ur Phencyclidine Scrn Ur Amphetamines Screen U Benzodiazepines Scrn Urine Cocaine Screen U Marijuana (THC) Screen Ethyl Alcohol Influenza Type A (PCR) Influenza Type B (PCR) RSV RNA Qual (PCR) SARS-CoV-2 RNA (RT-PCR) 12/21/24 12/22/24 12/22/24 22:22 04:21 06:17 WBC 9.3 RBC 4.69 Hgb 15.0 Hct 42.3 MCV 90.2 MCH 32.0 MCHC 35.5 RDW 12.1 Plt Count 227 MPV 10.9 Immature Gran % (Auto) 0.5 H Neut % (Auto) 62.4 Lymph % (Auto) 26.8 [place] % (Auto) 8.4 Eos % (Auto) 1.6 Baso % (Auto) 0.3 Lymph # (Auto) 2.5 [place] # (Auto) 0.8 Eos # (Auto) 0.2 Baso # (Auto) 0.0 Abs Immat Gran (auto) 0.05 H Absolute Neuts (auto) 5.8 Absolute Nucleated RBC 0.000 Nucleated RBC % (auto) 0.0 Hold Purple Top PT INR D-Dimer High Sensitivty VBG pH VBG pCO2 VBG pO2 VBG HCO3 VBG O2 Saturation VBG Base Excess Sodium 139 Potassium 3.5 Chloride 108 Carbon Dioxide 22 Anion Gap 13 BUN 10 Creatinine 0.71 Estim Creat Clear Calc 175.9 Estimated GFR > 60 POC Glucose 106 140 H Random Glucose 123 H Osmolality Lactic Acid Calcium 9.0 Phosphorus 3.9 Magnesium 2.1 Total Bilirubin Direct Bilirubin AST ALT Alkaline Phosphatase Ammonia Total Creatine Kinase Troponin I High Sens C-Reactive Protein B-Natriuretic Peptide Total Protein Albumin 3.7 Triglycerides Lipase TSH Hold Green Top Urine Color Urine Appearance Urine pH Ur Specific [place] Urine Protein Urine Glucose (UA) Urine Ketones Urine Blood Urine Nitrite Ur Leukocyte Esterase CSF Tube Number CSF Volume CSF Appearance CSF Color CSF WBC CSF RBC CSF Neutrophils CSF Lymphocytes CSF Monocytes % CSF Appearance (b) CSF Total Protein CSF C.neoform/gat PCR CSF CMV DNA (PCR) CSF Enterovirus (PCR) CSF E. coli K1 (PCR) CSF H. influenzae (PCR) CSF HSV I (PCR) CSF HSV II (PCR) CSF HHV 6 (PCR) CSF L.monocytogenes PCR CSF N. meningitidis PCR CSF Parechovirus (PCR) CSF S. agalactiae (PCR) CSF S. pneumoniae (PCR) CSF VZV (PCR) Nasal Screen MRSA (PCR) Nasal S. aureus Screen Nasal MRSA/S.aureus Interp Salicylates Urine Opiates Screen Ur Buprenorphine Scrn Ur Oxycodone Screen Urine Methadone Screen Urine Fentanyl Screen Acetaminophen Ur Barbiturates Screen Lamotrigine Ur Phencyclidine Scrn Ur Amphetamines Screen U Benzodiazepines Scrn Urine Cocaine Screen U Marijuana (THC) Screen Ethyl Alcohol Influenza Type A (PCR) Influenza Type B (PCR) RSV RNA Qual (PCR) SARS-CoV-2 RNA (RT-PCR) 12/22/24 12/22/24 12/22/24 07:27 11:03 16:07 WBC RBC Hgb Hct MCV MCH MCHC RDW Plt Count MPV Immature Gran % (Auto) Neut % (Auto) Lymph % (Auto) [place] % (Auto) Eos % (Auto) Baso % (Auto) Lymph # (Auto) [place] # (Auto) Eos # (Auto) Baso # (Auto) Abs Immat Gran (auto) Absolute Neuts (auto) Absolute Nucleated RBC Nucleated RBC % (auto) Hold Purple Top PT INR D-Dimer High Sensitivty VBG pH VBG pCO2 VBG pO2 VBG HCO3 VBG O2 Saturation VBG Base Excess Sodium Potassium Chloride Carbon Dioxide Anion Gap BUN Creatinine Estim Creat Clear Calc Estimated GFR POC Glucose 123 H 130 H 136 H Random Glucose Osmolality Lactic Acid Calcium Phosphorus Magnesium Total Bilirubin Direct Bilirubin AST ALT Alkaline Phosphatase Ammonia Total Creatine Kinase Troponin I High Sens C-Reactive Protein B-Natriuretic Peptide Total Protein Albumin Triglycerides Lipase TSH Hold Green Top Urine Color Urine Appearance Urine pH Ur Specific [place] Urine Protein Urine Glucose (UA) Urine Ketones Urine Blood Urine Nitrite Ur Leukocyte Esterase CSF Tube Number CSF Volume CSF Appearance CSF Color CSF WBC CSF RBC CSF Neutrophils CSF Lymphocytes CSF Monocytes % CSF Appearance (b) CSF Total Protein CSF C.neoform/gat PCR CSF CMV DNA (PCR) CSF Enterovirus (PCR) CSF E. coli K1 (PCR) CSF H. influenzae (PCR) CSF HSV I (PCR) CSF HSV II (PCR) CSF HHV 6 (PCR) CSF L.monocytogenes PCR CSF N. meningitidis PCR CSF Parechovirus (PCR) CSF S. agalactiae (PCR) CSF S. pneumoniae (PCR) CSF VZV (PCR) Nasal Screen MRSA (PCR) Nasal S. aureus Screen Nasal MRSA/S.aureus Interp Salicylates Urine Opiates Screen Ur Buprenorphine Scrn Ur Oxycodone Screen Urine Methadone Screen Urine Fentanyl Screen Acetaminophen Ur Barbiturates Screen Lamotrigine Ur Phencyclidine Scrn Ur Amphetamines Screen U Benzodiazepines Scrn Urine Cocaine Screen U Marijuana (THC) Screen Ethyl Alcohol Influenza Type A (PCR) Influenza Type B (PCR) RSV RNA Qual (PCR) SARS-CoV-2 RNA (RT-PCR) 12/22/24 12/23/24 12/23/24 20:40 05:52 06:27 WBC RBC Hgb Hct MCV MCH MCHC RDW Plt Count MPV Immature Gran % (Auto) Neut % (Auto) Lymph % (Auto) [place] % (Auto) Eos % (Auto) Baso % (Auto) Lymph # (Auto) [place] # (Auto) Eos # (Auto) Baso # (Auto) Abs Immat Gran (auto) Absolute Neuts (auto) Absolute Nucleated RBC Nucleated RBC % (auto) Hold Purple Top PT INR D-Dimer High Sensitivty VBG pH VBG pCO2 VBG pO2 VBG HCO3 VBG O2 Saturation VBG Base Excess Sodium 137 Potassium Chloride Carbon Dioxide Anion Gap BUN Creatinine Estim Creat Clear Calc Estimated GFR POC Glucose 129 H 138 H Random Glucose Osmolality Lactic Acid Calcium Phosphorus Magnesium Total Bilirubin Direct Bilirubin AST ALT Alkaline Phosphatase Ammonia Total Creatine Kinase Troponin I High Sens C-Reactive Protein B-Natriuretic Peptide Total Protein Albumin Triglycerides Lipase TSH Hold Green Top Urine Color Urine Appearance Urine pH Ur Specific [place] Urine Protein Urine Glucose (UA) Urine Ketones Urine Blood Urine Nitrite Ur Leukocyte Esterase CSF Tube Number CSF Volume CSF Appearance CSF Color CSF WBC CSF RBC CSF Neutrophils CSF Lymphocytes CSF Monocytes % CSF Appearance (b) CSF Total Protein CSF C.neoform/gat PCR CSF CMV DNA (PCR) CSF Enterovirus (PCR) CSF E. coli K1 (PCR) CSF H. influenzae (PCR) CSF HSV I (PCR) CSF HSV II (PCR) CSF HHV 6 (PCR) CSF L.monocytogenes PCR CSF N. meningitidis PCR CSF Parechovirus (PCR) CSF S. agalactiae (PCR) CSF S. pneumoniae (PCR) CSF VZV (PCR) Nasal Screen MRSA (PCR) Nasal S. aureus Screen Nasal MRSA/S.aureus Interp Salicylates Urine Opiates Screen Ur Buprenorphine Scrn Ur Oxycodone Screen Urine Methadone Screen Urine Fentanyl Screen Acetaminophen Ur Barbiturates Screen Lamotrigine Ur Phencyclidine Scrn Ur Amphetamines Screen U Benzodiazepines Scrn Urine Cocaine Screen U Marijuana (THC) Screen Ethyl Alcohol Influenza Type A (PCR) Influenza Type B (PCR) RSV RNA Qual (PCR) SARS-CoV-2 RNA (RT-PCR) 12/23/24 12/23/24 12/23/24 06:27 06:27 06:27 WBC RBC Hgb Hct MCV MCH MCHC RDW Plt Count MPV Immature Gran % (Auto) Neut % (Auto) Lymph % (Auto) [place] % (Auto) Eos % (Auto) Baso % (Auto) Lymph # (Auto) [place] # (Auto) Eos # (Auto) Baso # (Auto) Abs Immat Gran (auto) Absolute Neuts (auto) Absolute Nucleated RBC Nucleated RBC % (auto) Hold Purple Top PT INR D-Dimer High Sensitivty VBG pH VBG pCO2 VBG pO2 VBG HCO3 VBG O2 Saturation VBG Base Excess Sodium 136 Potassium 3.8 3.8 Chloride 109 H 109 H Carbon Dioxide 20 L Anion Gap BUN Creatinine Estim Creat Clear Calc Estimated GFR POC Glucose Random Glucose Osmolality Lactic Acid Calcium Phosphorus Magnesium Total Bilirubin Direct Bilirubin AST ALT Alkaline Phosphatase Ammonia Total Creatine Kinase Troponin I High Sens C-Reactive Protein B-Natriuretic Peptide Total Protein Albumin Triglycerides Lipase TSH Hold Green Top Urine Color Urine Appearance Urine pH Ur Specific [place] Urine Protein Urine Glucose (UA) Urine Ketones Urine Blood Urine Nitrite Ur Leukocyte Esterase CSF Tube Number CSF Volume CSF Appearance CSF Color CSF WBC CSF RBC CSF Neutrophils CSF Lymphocytes CSF Monocytes % CSF Appearance (b) CSF Total Protein CSF C.neoform/gat PCR CSF CMV DNA (PCR) CSF Enterovirus (PCR) CSF E. coli K1 (PCR) CSF H. influenzae (PCR) CSF HSV I (PCR) CSF HSV II (PCR) CSF HHV 6 (PCR) CSF L.monocytogenes PCR CSF N. meningitidis PCR CSF Parechovirus (PCR) CSF S. agalactiae (PCR) CSF S. pneumoniae (PCR) CSF VZV (PCR) Nasal Screen MRSA (PCR) Nasal S. aureus Screen Nasal MRSA/S.aureus Interp Salicylates Urine Opiates Screen Ur Buprenorphine Scrn Ur Oxycodone Screen Urine Methadone Screen Urine Fentanyl Screen Acetaminophen Ur Barbiturates Screen Lamotrigine Ur Phencyclidine Scrn Ur Amphetamines Screen U Benzodiazepines Scrn Urine Cocaine Screen U Marijuana (THC) Screen Ethyl Alcohol Influenza Type A (PCR) Influenza Type B (PCR) RSV RNA Qual (PCR) SARS-CoV-2 RNA (RT-PCR) 12/23/24 12/23/24 12/23/24 06:27 06:27 06:27 WBC RBC Hgb Hct MCV MCH MCHC RDW Plt Count MPV Immature Gran % (Auto) Neut % (Auto) Lymph % (Auto) [place] % (Auto) Eos % (Auto) Baso % (Auto) Lymph # (Auto) [place] # (Auto) Eos # (Auto) Baso # (Auto) Abs Immat Gran (auto) Absolute Neuts (auto) Absolute Nucleated RBC Nucleated RBC % (auto) Hold Purple Top PT INR D-Dimer High Sensitivty VBG pH VBG pCO2 VBG pO2 VBG HCO3 VBG O2 Saturation VBG Base Excess Sodium Potassium Chloride Carbon Dioxide 20 L Anion Gap 12 11 L BUN 11 9 Creatinine 0.70 Estim Creat Clear Calc Estimated GFR POC Glucose Random Glucose Osmolality Lactic Acid Calcium Phosphorus Magnesium Total Bilirubin Direct Bilirubin AST ALT Alkaline Phosphatase Ammonia Total Creatine Kinase Troponin I High Sens C-Reactive Protein B-Natriuretic Peptide Total Protein Albumin Triglycerides Lipase TSH Hold Green Top Urine Color Urine Appearance Urine pH Ur Specific [place] Urine Protein Urine Glucose (UA) Urine Ketones Urine Blood Urine Nitrite Ur Leukocyte Esterase CSF Tube Number CSF Volume CSF Appearance CSF Color CSF WBC CSF RBC CSF Neutrophils CSF Lymphocytes CSF Monocytes % CSF Appearance (b) CSF Total Protein CSF C.neoform/gat PCR CSF CMV DNA (PCR) CSF Enterovirus (PCR) CSF E. coli K1 (PCR) CSF H. influenzae (PCR) CSF HSV I (PCR) CSF HSV II (PCR) CSF HHV 6 (PCR) CSF L.monocytogenes PCR CSF N. meningitidis PCR CSF Parechovirus (PCR) CSF S. agalactiae (PCR) CSF S. pneumoniae (PCR) CSF VZV (PCR) Nasal Screen MRSA (PCR) Nasal S. aureus Screen Nasal MRSA/S.aureus Interp Salicylates Urine Opiates Screen Ur Buprenorphine Scrn Ur Oxycodone Screen Urine Methadone Screen Urine Fentanyl Screen Acetaminophen Ur Barbiturates Screen Lamotrigine Ur Phencyclidine Scrn Ur Amphetamines Screen U Benzodiazepines Scrn Urine Cocaine Screen U Marijuana (THC) Screen Ethyl Alcohol Influenza Type A (PCR) Influenza Type B (PCR) RSV RNA Qual (PCR) SARS-CoV-2 RNA (RT-PCR) 12/23/24 12/23/24 12/23/24 06:27 06:27 06:27 WBC RBC Hgb Hct MCV MCH MCHC RDW Plt Count MPV Immature Gran % (Auto) Neut % (Auto) Lymph % (Auto) [place] % (Auto) Eos % (Auto) Baso % (Auto) Lymph # (Auto) [place] # (Auto) Eos # (Auto) Baso # (Auto) Abs Immat Gran (auto) Absolute Neuts (auto) Absolute Nucleated RBC Nucleated RBC % (auto) Hold Purple Top PT INR D-Dimer High Sensitivty VBG pH VBG pCO2 VBG pO2 VBG HCO3 VBG O2 Saturation VBG Base Excess Sodium Potassium Chloride Carbon Dioxide Anion Gap BUN Creatinine 0.68 Estim Creat Clear Calc 178.4 183.6 Estimated GFR > 60 > 60 POC Glucose Random Glucose 143 H Osmolality Lactic Acid Calcium Phosphorus Magnesium Total Bilirubin Direct Bilirubin AST ALT Alkaline Phosphatase Ammonia Total Creatine Kinase Troponin I High Sens C-Reactive Protein B-Natriuretic Peptide Total Protein Albumin Triglycerides Lipase TSH Hold Green Top Urine Color Urine Appearance Urine pH Ur Specific [place] Urine Protein Urine Glucose (UA) Urine Ketones Urine Blood Urine Nitrite Ur Leukocyte Esterase CSF Tube Number CSF Volume CSF Appearance CSF Color CSF WBC CSF RBC CSF Neutrophils CSF Lymphocytes CSF Monocytes % CSF Appearance (b) CSF Total Protein CSF C.neoform/gat PCR CSF CMV DNA (PCR) CSF Enterovirus (PCR) CSF E. coli K1 (PCR) CSF H. influenzae (PCR) CSF HSV I (PCR) CSF HSV II (PCR) CSF HHV 6 (PCR) CSF L.monocytogenes PCR CSF N. meningitidis PCR CSF Parechovirus (PCR) CSF S. agalactiae (PCR) CSF S. pneumoniae (PCR) CSF VZV (PCR) Nasal Screen MRSA (PCR) Nasal S. aureus Screen Nasal MRSA/S.aureus Interp Salicylates Urine Opiates Screen Ur Buprenorphine Scrn Ur Oxycodone Screen Urine Methadone Screen Urine Fentanyl Screen Acetaminophen Ur Barbiturates Screen Lamotrigine Ur Phencyclidine Scrn Ur Amphetamines Screen U Benzodiazepines Scrn Urine Cocaine Screen U Marijuana (THC) Screen Ethyl Alcohol Influenza Type A (PCR) Influenza Type B (PCR) RSV RNA Qual (PCR) SARS-CoV-2 RNA (RT-PCR) 12/23/24 12/23/24 12/23/24 06:27 06:27 10:43 WBC RBC Hgb Hct MCV MCH MCHC RDW Plt Count MPV Immature Gran % (Auto) Neut % (Auto) Lymph % (Auto) [place] % (Auto) Eos % (Auto) Baso % (Auto) Lymph # (Auto) [place] # (Auto) Eos # (Auto) Baso # (Auto) Abs Immat Gran (auto) Absolute Neuts (auto) Absolute Nucleated RBC Nucleated RBC % (auto) Hold Purple Top PT INR D-Dimer High Sensitivty VBG pH VBG pCO2 VBG pO2 VBG HCO3 VBG O2 Saturation VBG Base Excess Sodium Potassium Chloride Carbon Dioxide Anion Gap BUN Creatinine Estim Creat Clear Calc Estimated GFR POC Glucose 133 H Random Glucose 143 H Osmolality Lactic Acid Calcium 8.9 8.9 Phosphorus 3.1 Magnesium 2.0 Total Bilirubin Direct Bilirubin AST ALT Alkaline Phosphatase Ammonia Total Creatine Kinase Troponin I High Sens C-Reactive Protein B-Natriuretic Peptide Total Protein Albumin 3.6 Triglycerides Lipase TSH Hold Green Top Urine Color Urine Appearance Urine pH Ur Specific [place] Urine Protein Urine Glucose (UA) Urine Ketones Urine Blood Urine Nitrite Ur Leukocyte Esterase CSF Tube Number CSF Volume CSF Appearance CSF Color CSF WBC CSF RBC CSF Neutrophils CSF Lymphocytes CSF Monocytes % CSF Appearance (b) CSF Total Protein CSF C.neoform/gat PCR CSF CMV DNA (PCR) CSF Enterovirus (PCR) CSF E. coli K1 (PCR) CSF H. influenzae (PCR) CSF HSV I (PCR) CSF HSV II (PCR) CSF HHV 6 (PCR) CSF L.monocytogenes PCR CSF N. meningitidis PCR CSF Parechovirus (PCR) CSF S. agalactiae (PCR) CSF S. pneumoniae (PCR) CSF VZV (PCR) Nasal Screen MRSA (PCR) Nasal S. aureus Screen Nasal MRSA/S.aureus Interp Salicylates Urine Opiates Screen Ur Buprenorphine Scrn Ur Oxycodone Screen Urine Methadone Screen Urine Fentanyl Screen Acetaminophen Ur Barbiturates Screen Lamotrigine Ur Phencyclidine Scrn Ur Amphetamines Screen U Benzodiazepines Scrn Urine Cocaine Screen U Marijuana (THC) Screen Ethyl Alcohol Influenza Type A (PCR) Influenza Type B (PCR) RSV RNA Qual (PCR) SARS-CoV-2 RNA (RT-PCR) 12/23/24 12/23/24 12/24/24 16:01 22:11 04:38 WBC RBC Hgb Hct MCV MCH MCHC RDW Plt Count MPV Immature Gran % (Auto) Neut % (Auto) Lymph % (Auto) [place] % (Auto) Eos % (Auto) Baso % (Auto) Lymph # (Auto) [place] # (Auto) Eos # (Auto) Baso # (Auto) Abs Immat Gran (auto) Absolute Neuts (auto) Absolute Nucleated RBC Nucleated RBC % (auto) Hold Purple Top PT INR D-Dimer High Sensitivty VBG pH VBG pCO2 VBG pO2 VBG HCO3 VBG O2 Saturation VBG Base Excess Sodium Potassium Chloride Carbon Dioxide Anion Gap BUN Creatinine Estim Creat Clear Calc Estimated GFR POC Glucose 129 H 108 153 H Random Glucose Osmolality Lactic Acid Calcium Phosphorus Magnesium Total Bilirubin Direct Bilirubin AST ALT Alkaline Phosphatase Ammonia Total Creatine Kinase Troponin I High Sens C-Reactive Protein B-Natriuretic Peptide Total Protein Albumin Triglycerides Lipase TSH Hold Green Top Urine Color Urine Appearance Urine pH Ur Specific [place] Urine Protein Urine Glucose (UA) Urine Ketones Urine Blood Urine Nitrite Ur Leukocyte Esterase CSF Tube Number CSF Volume CSF Appearance CSF Color CSF WBC CSF RBC CSF Neutrophils CSF Lymphocytes CSF Monocytes % CSF Appearance (b) CSF Total Protein CSF C.neoform/gat PCR CSF CMV DNA (PCR) CSF Enterovirus (PCR) CSF E. coli K1 (PCR) CSF H. influenzae (PCR) CSF HSV I (PCR) CSF HSV II (PCR) CSF HHV 6 (PCR) CSF L.monocytogenes PCR CSF N. meningitidis PCR CSF Parechovirus (PCR) CSF S. agalactiae (PCR) CSF S. pneumoniae (PCR) CSF VZV (PCR) Nasal Screen MRSA (PCR) Nasal S. aureus Screen Nasal MRSA/S.aureus Interp Salicylates Urine Opiates Screen Ur Buprenorphine Scrn Ur Oxycodone Screen Urine Methadone Screen Urine Fentanyl Screen Acetaminophen Ur Barbiturates Screen Lamotrigine Ur Phencyclidine Scrn Ur Amphetamines Screen U Benzodiazepines Scrn Urine Cocaine Screen U Marijuana (THC) Screen Ethyl Alcohol Influenza Type A (PCR) Influenza Type B (PCR) RSV RNA Qual (PCR) SARS-CoV-2 RNA (RT-PCR) Airway Mallampati Class: Patient Non-Cooperative Heart: RRR Lungs: CTAB Assessment and Plan Assessment Anesthesia Assessment: Anesthesia Plan Discussed and Chart Reviewed Final Anesthetic Review Family History of Problems with Anesthesia: No History of Problems with Anesthesia: No NPO: Yes ASA Class: III Final Preanesthetic Review: No Changes in Pt Med Stat, Meds/Allgs Chart Reviewed, Consent Obtained/Reviewed and Anes Risks/Benef Reviewed Patient Risk: Intermediate Procedure Risk: Intermediate Anesthetic Plan Anesthetic Plan: GA Disposition: Standard PACU and Inp. Admit - Standard Bed
--- NOTE | 2024-12-24 10:19 | HO.PM.IMPN ---
Subjective Subjective Date of Service: 12/24/24 Interval History: seen after ECT today, no complaints Physical Exam Vital Signs: Vital Signs: Last Vital Signs Temp 98.5 F 12/24/24 09:05 Pulse 89 12/24/24 09:05 Resp 22 H 12/24/24 09:05 BP 179/100 H 12/24/24 09:05 Pulse Ox 96 12/24/24 09:05 O2 Del Method Room Air 12/24/24 09:05 O2 Flow Rate 2 12/24/24 08:38 BMI result Body Mass Index 29.8 alert, flat affect, answering questions selectively, more fluid in movements Objective Data Active Medications Acetaminophen (Acetaminophen Supp 650 Mg Supp.Rect) 650 mg [place] Q6H PRN PRN Reason: Pain, Mild 1-3,fever,headache Last Admin: 12/22/24 01:01 Dose: 650 mg Documented By: MARITZA Enoxaparin Sodium (Enoxaparin Sodium 40 Mg/0.4 Ml Syringe) 40 mg SUBCUT Q24H [facility] Last Admin: 12/23/24 20:28 Dose: 40 mg Documented By: LATOSHA Piperacillin Sod/Tazobactam (Sod 4.5 gm/ Sodium Chloride) 100 mls @ 200 mls/hr IV Q6H [facility] Last Infusion: 12/24/24 04:53 Dose: Infused Documented By: LATOSHA Nutrition (Parenteral) (Parenteral Nutrition) 1,920 mls @ 80 mls/hr IV .Q24H [facility]; Protocol Stop: 12/24/24 20:59 Last Admin: 12/23/24 21:02 Dose: 80 mls/hr Documented By: LATOSHA Lorazepam (Lorazepam 2 Mg/Ml Vial) 1 mg IVPUSH Q6H [facility] Last Admin: 12/24/24 06:34 Dose: 1 mg Documented By: LATOSHA Comments: Nicotine (Nicotine 21 Mg Patch.Td24) 21 mg TRANSDERMA DAILY [facility] Last Admin: 12/23/24 09:02 Dose: 21 mg Documented By: CINDY Nystatin (Nystatin Powder 15 Gm Bottle) 1 appl TOPICAL BID [facility]; Protocol Last Admin: 12/23/24 20:59 Dose: 1 appl Documented By: LATOSHA Ondansetron HCl (Ondansetron Hcl 4 Mg/2 Ml Vial) 4 mg IVPUSH Q8H PRN PRN Reason: Nausea and Vomiting Pharmacy Consult (Consult Rx Parenteral Nutrition Ordering) 1 each MISCELLANE DAILY PRN PRN Reason: Consult order Labs 12/22/24 06:17 12/23/24 06:27 Labs: Laboratory Results - last 24 hr 12/23/24 12/23/24 12/23/24 10:43 16:01 22:11 POC Glucose 133 H 129 H 108 12/24/24 04:38 POC Glucose 153 H Assessment and Plan (1) Toxic metabolic encephalopathy: Status: Acute (2) Catatonia: Status: Acute Plan 34M PMH bipolar 1 who was sent for [facility] for catatonia and acute hypoxia Acute metabolic\Toxic encephalopathy likely related to catatonia LP, Negative encephalitis panel, Negative CSF cultures, dcd IV Acyclovir MRI negative for any acute findings EEG negative for any seizure activities Lorazepam 1mg Q6H Psychiatry following, continue ECT treatment as scheduled received 3 ECT by now, to continue three times a week MWF Continue PPN until he is able to tolerate PO - trial of pureed solids with thins today Acute hypokalemia replacement given by PPN Sepsis and acute hypoxic respiratory failure secondary to aspiration pneumonia with risk for MRSA given recent hospitalization Sepsis resolved On Zosyn for aspirationn started 12/15, to finish total of 10 days 12/25/24. Weaned O2 off Bipolar 1 with catatonia versus malignant catatonia see above DVT prophylaxis with Lovenox Full Code reason for continued hospitalization: Awaiting mental status improvement, ECT treatment Quality Stroke Does the patient have a stroke diagnosis?: No VTE Prior VTE?: No VTE Risk Level:: Medical - moderate - high VTE Device Contraindication: Treatment Not Indicated VTE Drug Contraindication: N/A - Med Ordered
[2024-12-24 10:28] LABS: MANUAL DIFF FLAG NO
[2024-12-24 10:36] LABS: Basophils Percent Auto 0.4 % (0-2); Eosinophils Absolute Auto 0.2 X10*3/uL (0.0-0.4); Eosinophils Percent Auto 1.8 % (0-4); Hematocrit 41.5 % (42.0-52.0); Hemoglobin 14.9 g/dl (14.0-18.0); Imm Gran Abs Auto 0.04 X10*3/uL (0.00-0.03); Imm Gran Pct Auto 0.4 % (0.0-0.4); Lymphocytes Absolute Auto 1.7 X10*3/uL (1.2-4.9); Lymphocytes Percent Auto 16.6 % (20-40); Mean Corpuscular HGB Conc 35.9 g/dl (31.0-36.0); Mean Corpuscular Hemoglobin 32.7 pg (27.0-33.0); Mean Platelet Volume 10.9 fL (9.4-12.4); Monocytes Absolute Auto 0.7 X10*3/uL (0.1-1.2); Monocytes Percent Auto 6.2 % (2-11); Neutrophils Absolute Auto 7.8 x10*3/uL (2.0-8.3); Neutrophils Percent Auto 74.6 % (45-73); Platelet Count 225 X10*3/uL (160-400); Red Blood Count 4.56 X10*6/uL (4.60-5.80); Red Cell Distribution Width 12.8 % (11.0-16.0); White Blood Count 10.5 X10*3/uL (4.8-10.8)
[2024-12-24] MEDS: Nicotine 21 MG PATCH.TD24 TRANSDERMA (10:46)
[2024-12-24] MEDS: Nystatin Powder 15 GM BOTTLE 1 APPL TOPICAL ×2 (10:47→21:02)
--- NOTE | 2024-12-24 11:05 | MHC.SL.SWA ---
Speech Pathologist Impression: Mild oropharyngeal dysphagia in presence of weakness and mentation Risk of Aspiration Due to: History of Pneumonia Dysphasia Diet Status: Trials of solids pending pt willingness to participate in diet upgrade assessment Liquid Consistency and Strategies for Safe Swallow: Liquid Intake Recommendation: Thin Liquid Intake Strategies: Small Sips Solid Food Consistency: Dietary Recommendations: Pureed (NDD1) Additional Modifications to Solid Foods: Patient will need full assistance at meals, though attempts should be made to encourage patient to hold utensils or cup to initiate self feeding. Patient unlikely to take much p.o., and PO should be offered only to level of toleration. Recommend liquids and purees by tsp only. Assure that patient has swallowed any food or liquid presented and has not held/pocketed any food orally. Oral Medication Intake: Crushed with Puree Please contact the pharmacy regarding appropriate crushable or liquid drug formulations that are available whenever modified delivery is recommended. Compensatory Strategies and Precautions to be Taken for Safe Swallow: Sitting Upright (90 deg) Liquids from Straw Small Bites and Sips Supervision While Eating and Drinking for Safe Swallow: Total Assistance (1:1) Foods to Avoid: Swallowing Recommended Treatments: Compens. Strategy Educat. Recommendation for Speech: Inpatient Speech Therapy Comment: Pt seen for dysphagia treatment. Pt sitting upright in bed, alert and communicative at the word/phrase level. RN consulted, noting pt improving, more responsive. Pt is currently on NDD1 with thins, expressing he doesn't like the food. Pt offered choices for diet upgrade trials but calmly refused, requesting only gingerale. Pt took consecutive sips of thins by straw with adequate oropharyngeal coordination and respiratory efficiency. No overt s/s of aspiration over intake of approximately 4oz of thins by straw sips. DATA MANAGEMENT SPECIALIST to return in the afternoon to attempt advancing diet, if pt agreeable. Frequency/Duration: Date Range for Service Req: Timeline to reassess: Developmental Behavioral Physician Clinican/Clinical Fellow: No Supervisory Statement: I have reviewed and agree with the student/clinical fellow's documentation: N/A Speech Language Pathologist: Sybil Farooq M.S., CCC-DATA MANAGEMENT SPECIALIST
--- NOTE | 2024-12-24 11:15 | MHC.CLN ---
F/U PT CONTINUES WITH POOR PO R/T CATATONIA DIET ORDER FOR PUREED DIET-TO TRIAL TODAY PER MD LABS PENDING DISCUSSED WITH PHARMACY CONTINUE PPN AT MAX GOAL RATE 80ML/HR WITH 88G LIPIDS PROVIDES 1859 TOTAL KCALS (23KCALS/KG BASED ON IBW), 82G PROTEIN (1.0G/KG), 192G DEXTROSE REPLETE LYTES NEEDED MONITOR PO INTAKE -WILL DECREASE PPN PO IMPROVES
[2024-12-24 11:58] LABS: Albumin Level 3.7 g/dL (3.5-5.0); Anion Gap 11 (12-20); Blood Urea Nitrogen 7 mg/dL (9-16); Carbon Dioxide 24 mmol/L (22-29); Chloride 107 mmol/L (96-108); Creatinine Clr Calc Pharmacy 164.3; Estimated Glomerular Filt Rate > 60; Glucose Random 157 mg/dL (60-115); Magnesium 1.9 mg/dL (1.6-2.6); Phosphorus 2.5 mg/dL (2.7-4.5); Potassium 3.6 mmol/L (3.3-5.1); Sodium 138 mmol/L (135-145); Triglycerides 254 mg/dL (<150)
[2024-12-24 13:20] LABS: Glucose, Whole Blood 167 mg/dL (60-115)
--- NOTE | 2024-12-24 15:46 | MHC.CM.PN ---
EMR reviewed and per MD rounds, pt is not medically cleared for discharge due to awaiting mental status improvement, and ECT treatment.
[2024-12-24] MEDS: Parenteral Nutrition 1,920 ML 80 ML IV (20:57)
[2024-12-24] MEDS: Enoxaparin Sodium 40 MG/0.4 ML SYRINGE SUBCUT (20:57)
[2024-12-25] VITALS (7 sets, daily range): BP systolic 129–164; BP diastolic 86–100; PULSE 90–107; RESP 16–18; TEMP 36.6–37.1; O2SAT 93–96
[2024-12-25] MEDS: LORazepam 2 MG/ML VIAL 1 MG IVPUSH ×4 (00:09→17:30)
--- NOTE | 2024-12-25 01:12 | PC.NURSE ---
Assumed care of this patient at 19:00. Please see shift assessment, tasks, and MAR for full details. Handoff report given to oncoming RN at 23:15.
[2024-12-25 04:20] LABS: Glucose, Whole Blood 142 mg/dL (60-115)
[2024-12-25 04:20] LABS: Glucose, Whole Blood 166 mg/dL (60-115)
[2024-12-25 04:20] LABS: Glucose, Whole Blood 143 mg/dL (60-115)
[2024-12-25] MEDS: Piperacillin Sodium/Tazobactam 4.5 GM in 0.9 % Sodium Chloride 100 ML IV (04:28)
[2024-12-25 07:21] LABS: Albumin Level 3.9 g/dL (3.5-5.0); Anion Gap 13 (12-20); Blood Urea Nitrogen 8 mg/dL (9-16); Calcium 9.5 mg/dL (8.4-10.2); Carbon Dioxide 23 mmol/L (22-29); Chloride 106 mmol/L (96-108); Creatinine Clr Calc Pharmacy 166.5; Estimated Glomerular Filt Rate > 60; Glucose Random 165 mg/dL (60-115); Magnesium 2.1 mg/dL (1.6-2.6); Phosphorus 3.3 mg/dL (2.7-4.5); Sodium 138 mmol/L (135-145)
--- NOTE | 2024-12-25 10:27 | MHC.SLORD ---
Speech Language Pathology Order Status: Patient seen for trial of more advanced solid food this morning, tolerated well producing normal swallow on aleshia cracker. SCIENTIFIC RECRUITER advanced diet to Chopped/Advanced in Expanse, will return at lunch to observe toleration of this consistency.
[2024-12-25 10:37] LABS: Glucose, Whole Blood 181 mg/dL (60-115)
--- NOTE | 2024-12-25 10:40 | MHC.CLN ---
F/U PT WITHOUT SIGNIFICANT PO INTAKE R/T CATATONIA DIET ORDER ADVANCED TO CHOPPED DIET-TO TRIAL TODAY PER CCTV TECHNICIAN REVIEWED LABS TRIGS 254 FROM 166 DISCUSSED WITH PHARMACY CONTINUE PPN AT MAX GOAL RATE 80ML/HR PROVIDES 979 TOTAL KCALS, 82G PROTEIN (.9G/KG), 192G DEXTROSE HOLD LIPIDS TODAY R/T TRIG LEVEL REPLETE LYTES NEEDED MONITOR PO INTAKE CLOSELY-WILL DECREASE PPN PO IMPROVES
--- NOTE | 2024-12-25 11:27 | P.PNIM_ITS ---
Subjective Subjective Date of Service: 12/25/24 Interval History: non participatory Physical Exam 2 Vital Signs: Vital Signs: Last Vital Signs Temp 98.0 F 12/25/24 11:19 Pulse 98 12/25/24 11:19 Resp 18 12/25/24 11:19 BP 144/100 H 12/25/24 11:19 Pulse Ox 95 12/25/24 11:19 O2 Del Method Room Air 12/25/24 11:19 O2 Flow Rate 2 12/24/24 08:38 BMI result Body Mass Index 29.8 not talking today, a bit stiffer, alert, tracking Objective Data Active Medications Acetaminophen (Acetaminophen Supp 650 Mg Supp.Rect) 650 mg [place] Q6H PRN PRN Reason: Pain, Mild 1-3,fever,headache Last Admin: 12/22/24 01:01 Dose: 650 mg Documented By: MARITZA Enoxaparin Sodium (Enoxaparin Sodium 40 Mg/0.4 Ml Syringe) 40 mg SUBCUT Q24H [facility] Last Admin: 12/24/24 20:57 Dose: 40 mg Documented By: PRANAV Piperacillin Sod/Tazobactam (Sod 4.5 gm/ Sodium Chloride) 100 mls @ 200 mls/hr IV Q6H [facility] Last Infusion: 12/25/24 05:35 Dose: Infused Documented By: FALLON Nutrition (Parenteral) (Parenteral Nutrition) 1,920 mls @ 80 mls/hr IV .Q24H [facility]; Protocol Stop: 12/25/24 20:59 Last Admin: 12/24/24 20:57 Dose: 80 mls/hr Documented By: PRANAV Nutrition (Parenteral) (Parenteral Nutrition) 1,920 mls @ 80 mls/hr IV .Q24H [facility]; Protocol Stop: 12/26/24 20:59 Lorazepam (Lorazepam 2 Mg/Ml Vial) 1 mg IVPUSH Q6H [facility] Last Admin: 12/25/24 05:48 Dose: 1 mg Documented By: FALLON Comments: Nicotine (Nicotine 21 Mg Patch.Td24) 21 mg TRANSDERMA DAILY [facility] Last Admin: 12/24/24 10:46 Dose: 21 mg Documented By: EKTA Nystatin (Nystatin Powder 15 Gm Bottle) 1 appl TOPICAL BID [facility]; Protocol Last Admin: 12/24/24 21:02 Dose: 1 appl Documented By: PRANAV Ondansetron HCl (Ondansetron Hcl 4 Mg/2 Ml Vial) 4 mg IVPUSH Q8H PRN PRN Reason: Nausea and Vomiting Pharmacy Consult (Consult Rx Parenteral Nutrition Ordering) 1 each MISCELLANE DAILY PRN PRN Reason: Consult order Labs 12/24/24 10:23 12/25/24 06:49 Labs: Laboratory Results - last 24 hr 12/24/24 12/24/24 12/24/24 11:28 11:36 17:14 Hold Purple Top Anion Gap 11 L Estim Creat Clear Calc 164.3 Estimated GFR > 60 POC Glucose 167 H 142 H Random Glucose 157 H Calcium 9.0 Phosphorus 2.5 L Magnesium 1.9 Albumin 3.7 Triglycerides 254 H 12/24/24 12/25/24 12/25/24 22:38 03:58 06:49 Hold Purple Top SEE NOTE Anion Gap 13 Estim Creat Clear Calc 166.5 Estimated GFR > 60 POC Glucose 143 H 166 H Random Glucose 165 H Calcium 9.5 Phosphorus 3.3 Magnesium 2.1 Albumin 3.9 Triglycerides 12/25/24 09:51 Hold Purple Top Anion Gap Estim Creat Clear Calc Estimated GFR POC Glucose 181 H Random Glucose Calcium Phosphorus Magnesium Albumin Triglycerides Assessment and Plan (1) Toxic metabolic encephalopathy: Status: Acute (2) Catatonia: Status: Acute Plan 34M PMH bipolar 1 who was sent for [facility] for catatonia and acute hypoxia Acute metabolic\Toxic encephalopathy likely related to catatonia LP, Negative encephalitis panel, Negative CSF cultures, dcd IV Acyclovir MRI negative for any acute findings EEG negative for any seizure activities Lorazepam 1mg Q6H Psychiatry following, continue ECT treatment as scheduled received 3 ECT by now, to continue three times a week MWF Continue PPN until he is reliably eating po, now on chopped with thins but not eating Acute hypokalemia replacement given by PPN Sepsis and acute hypoxic respiratory failure secondary to aspiration pneumonia with risk for MRSA given recent hospitalization Sepsis resolved completed 10 days zosyn 12/25/24 Weaned O2 off Bipolar 1 with catatonia versus malignant catatonia see above DVT prophylaxis with Lovenox Full Code reason for continued hospitalization: Awaiting mental status improvement, ECT treatment Quality Stroke Does the patient have a stroke diagnosis?: No VTE Prior VTE?: No VTE Risk Level:: Medical - moderate - high VTE Device Contraindication: Treatment Not Indicated VTE Drug Contraindication: N/A - Med Ordered
[2024-12-25] MEDS: Nicotine 21 MG PATCH.TD24 TRANSDERMA (11:30)
[2024-12-25] MEDS: Nystatin Powder 15 GM BOTTLE 1 APPL TOPICAL (11:31)
--- NOTE | 2024-12-25 16:34 | MHC.SL.SWA ---
Speech Pathologist Impression: Risk of Aspiration Due to: History of Pneumonia Dysphasia Diet Status: recommend Patient continue at this time on Chopped/Advanced (NDD3) with Thin liquids, pills crushed in puree. Liquid Consistency and Strategies for Safe Swallow: Liquid Intake Recommendation: Thin Liquid Intake Strategies: Small Sips Solid Food Consistency: Dietary Recommendations: Chopped/Advanced (NDD3) Additional Modifications to Solid Foods: Assure that patient has swallowed food. Patient is at risk for pocketing/ignoring food in mouth (freezing). Oral Medication Intake: Crushed with Puree Please contact the pharmacy regarding appropriate crushable or liquid drug formulations that are available whenever modified delivery is recommended. Compensatory Strategies and Precautions to be Taken for Safe Swallow: Sitting Upright (90 deg) Liquids from Cup Liquids from Straw Small Bites and Sips Alternate Liquids/Solids Rate of Ingestion Change Oral Check Supervision While Eating and Drinking for Safe Swallow: Total Assistance (1:1) Foods to Avoid: Swallowing Recommended Treatments: Compens. Strategy Educat. Recommendation for Speech: Inpatient Speech Therapy Comment: Patient seen this morning and then again at lunch today. In a.m. offered foods to assess an upgrade, with patient accepting and taking aleshia cracker: Cracker placed in patients hand, patient raised and bit off piece, produced a normal rotary chew, after a couple of seconds appeared to stop, but then resumed eating and swallowed normally. Patient did this X2 during trials. Family members were present, at times patient appeared distracted by their presence. When asked if he knew them he responded no. But stared at brothers and . Family members noted that patient likes coffee, but it had not been ordered with tray. Patient at this time had refused all breakfast foods and drinks available. MANAGER WOUND CARE recommended and upgraded diet to Chopped Advanced (NDD3), with plan to return at lunch to observe toleration of this texture. At lunch, Patient had refused all food as offered by sitter, MANAGER WOUND CARE attempted to encourage patient to take bite of chopped turkey, but patient was unresponsive. MANAGER WOUND CARE attempted trial with soft sandwich, also offered to patient, placed in his hand, however patient did not respond (eyes open, staring, face redenning at times with emotion?). Despite lack of response, inability to observed chopped tray toleration, recommend Patient continue at this time on Chopped/Advanced (NDD3) with Thin liquids, pills crushed in puree. Recommend attempt at later time with more regular familiar looking foods to see if this further motivates patient. Frequency/Duration: Date Range for Service Req: Timeline to reassess: Russian History Professor Clinican/Clinical Fellow: No Supervisory Statement: I have reviewed and agree with the student/clinical fellow's documentation: N/A Speech Language Pathologist: Khalida Morris M.A., CCC-MANAGER WOUND CARE
[2024-12-25 16:40] LABS: Glucose, Whole Blood 194 mg/dL (60-115)
[2024-12-25] MEDS: Enoxaparin Sodium 40 MG/0.4 ML SYRINGE SUBCUT (20:21)
[2024-12-25] MEDS: Parenteral Nutrition 1,920 ML 80 ML IV (20:22)
[2024-12-26] VITALS (12 sets, daily range): BP systolic 128–177; BP diastolic 85–102; PULSE 86–129; RESP 16–26; TEMP 36.1–37.4; O2SAT 94–98
[2024-12-26] MEDS: LORazepam 2 MG/ML VIAL 1 MG IVPUSH ×4 (00:31→23:57)
[2024-12-26 01:14] LABS: Glucose, Whole Blood 175 mg/dL (60-115)
[2024-12-26 04:57] LABS: Glucose, Whole Blood 158 mg/dL (60-115)
[2024-12-26] MEDS: Lactated Ringers 1,000 ML 100 ML IVCONT (06:34)
--- NOTE | 2024-12-26 07:12 | MHC.SHP ---
Pre-Procedural Eval Section A - 24 Hr Update-Section A only Date of Service: 12/26/24 The patient is an INPATIENT: Yes Changes since office visit: Yes Cold of Flu in the past 2 weeks, Yes New Medical Problems and Yes Changes in Medication; No Patient answered all questions The patient has been examined within 24 hours of the surgical procedure. The History & Physical has been completed within 30 days and I have reviewed it.: Yes Section B - Complete if H&P > 30 days Chief Complaint: pneumonia, hypoxia, sepsis Allergies: Allergies Allergy/AdvReac Type Severity Reaction Status Date / Time sertraline [From Zoloft] Allergy Unknown Verified 12/14/24 16:10 Plan I have reviewed the history and physical and performed a pertinent physical examination on my patient. No changes have occurred unless specified. Time Spent With Patient Time: Total time managing care of this patient today ____ minutes.
--- NOTE | 2024-12-26 07:34 | HO.ECTPROC ---
ECT Procedure Note Diagnosis/Treatment Date of Service: 12/26/24 Diagnosis: Bipolar disorder and Catatonia Previous ECT Date: 12/24/24 Current Treatment Number: 4 Treatment: Series Interval Clinical Notes: Pt alert with intense ? paranoid stare still not speaking remains on parenteral nutrition tx BT lorazepam 2 mg post Time: Total time managing care of this patient today ____ minutes. ECT Settings Device: THYMATRON DGx Electrode Placement: Bitemporal Program/Pulse Width: 0.50 Energy Percent: 100 Medications Administration General Anesthetic: Etomidate (14) Muscle Relaxant: Succinylcholine (140) Ancillary Medications Cardiovascular Medications: Esmolol (10) Miscillaneous Medications: Other (lorazepam 2 ivp) Airway Management Airway Management: Bag Mask Ventilation Treatment Recommendations No Changes Recommended: No change Pt Tolerated Procedure w/o Issue: Yes
[2024-12-26] MEDS: LORazepam 2 MG/ML VIAL IVPUSH (07:37)
[2024-12-26] MEDS: Nystatin Powder 15 GM BOTTLE 1 APPL TOPICAL ×2 (08:29→22:31)
[2024-12-26] MEDS: Nicotine 21 MG PATCH.TD24 TRANSDERMA (08:29)
--- NOTE | 2024-12-26 09:21 | P.PNIM_ITS ---
Subjective Subjective Date of Service: 12/26/24 Interval History: no complaints Physical Exam 2 Vital Signs: Vital Signs: Last Vital Signs Temp 97.6 F 12/26/24 08:00 Pulse 86 12/26/24 08:05 Resp 18 12/26/24 08:05 BP 147/96 H 12/26/24 08:05 Pulse Ox 94 12/26/24 08:05 O2 Del Method Room Air 12/26/24 08:05 O2 Flow Rate 4 12/26/24 08:05 BMI result Body Mass Index 29.8 Somewhat verbal today Objective Data Active Medications Acetaminophen (Acetaminophen Supp 650 Mg Supp.Rect) 650 mg [place] Q6H PRN PRN Reason: Pain, Mild 1-3,fever,headache Last Admin: 12/22/24 01:01 Dose: 650 mg Documented By: MARITZA Enoxaparin Sodium (Enoxaparin Sodium 40 Mg/0.4 Ml Syringe) 40 mg SUBCUT Q24H [facility] Last Admin: 12/25/24 20:21 Dose: 40 mg Documented By: STELLA Nutrition (Parenteral) (Parenteral Nutrition) 1,920 mls @ 80 mls/hr IV .Q24H [facility]; Protocol Stop: 12/26/24 20:59 Last Admin: 12/25/24 20:22 Dose: 80 mls/hr Documented By: STELLA Lorazepam (Lorazepam 2 Mg/Ml Vial) 1 mg IVPUSH Q6H [facility] Last Admin: 12/26/24 06:18 Dose: Not Given Documented By: STELLA Non-Admin Reason: held for procedure Naloxone HCl (Naloxone Hcl 0.4 Mg/Ml Vial) 0.04 mg IVPUSH Q5M PRN PRN Reason: Excessive sedation or RR < 8 Nicotine (Nicotine 21 Mg Patch.Td24) 21 mg TRANSDERMA DAILY [facility] Last Admin: 12/26/24 08:29 Dose: 21 mg Documented By: CECE Nystatin (Nystatin Powder 15 Gm Bottle) 1 appl TOPICAL BID [facility]; Protocol Last Admin: 12/26/24 08:29 Dose: 1 appl Documented By: CECE Ondansetron HCl (Ondansetron Hcl 4 Mg/2 Ml Vial) 4 mg IVPUSH Q8H PRN PRN Reason: Nausea and Vomiting Pharmacy Consult (Consult Rx Parenteral Nutrition Ordering) 1 each MISCELLANE DAILY PRN PRN Reason: Consult order Labs 12/24/24 10:23 12/25/24 06:49 Labs: Laboratory Results - last 24 hr 12/25/24 12/25/24 12/25/24 09:51 15:52 23:54 POC Glucose 181 H 194 H 175 H 12/26/24 04:30 POC Glucose 158 H Assessment and Plan (1) Toxic metabolic encephalopathy: Status: Acute (2) Catatonia: Status: Acute Plan 34M PMH bipolar 1 who was sent for [facility] for catatonia and acute hypoxia Acute metabolic\Toxic encephalopathy likely related to catatonia LP, Negative encephalitis panel, Negative CSF cultures, dcd IV Acyclovir MRI negative for any acute findings EEG negative for any seizure activities Lorazepam 1mg Q6H Psychiatry following, continue ECT treatment as scheduled received 4 ECT by now, to continue three times a week MWF tends to be verbal and more fluid day of ECT, then becomes more muted Continue PPN until he is reliably eating po, now on chopped with thins but not reliably eating Acute hypokalemia replaced Sepsis and acute hypoxic respiratory failure secondary to aspiration pneumonia with risk for MRSA given recent hospitalization Sepsis resolved completed 10 days zosyn 12/25/24 Weaned O2 off Bipolar 1 with catatonia versus malignant catatonia see above DVT prophylaxis with Lovenox Full Code reason for continued hospitalization: Awaiting mental status improvement, ECT treatment Quality Stroke Does the patient have a stroke diagnosis?: No VTE Prior VTE?: No VTE Risk Level:: Medical - moderate - high VTE Device Contraindication: Treatment Not Indicated VTE Drug Contraindication: N/A - Med Ordered
[2024-12-26 09:49] LABS: Albumin Level 4.2 g/dL (3.5-5.0); Anion Gap 12 (12-20); Blood Urea Nitrogen 10 mg/dL (9-16); Calcium 9.8 mg/dL (8.4-10.2); Carbon Dioxide 22 mmol/L (22-29); Chloride 106 mmol/L (96-108); Creatinine Clr Calc Pharmacy 164.3; Estimated Glomerular Filt Rate > 60; Glucose Random 199 mg/dL (60-115); Magnesium 1.9 mg/dL (1.6-2.6); Phosphorus 3.3 mg/dL (2.7-4.5); Potassium 4.5 mmol/L (3.3-5.1); Sodium 135 mmol/L (135-145)
--- NOTE | 2024-12-26 10:42 | PM.PSYCN ---
History of Present Illness Date of Service: 12/25/2024 Chief Complaint: pneumonia, hypoxia, sepsis Reason for Consult: f/u catatonia Discussed with referring provider: Yes Sources of Information: patient interviewed, chart reviewed and crisis/core team assessment reviewed HPI Narrative: Interim Hx: Pt had ECT # 3 on 12/24. Pt seen today in bed, eyes open. He is mute. Continues to have waxy flexibility. He has not had any oral intake, continues on PPN. scheduled to have next ECT on 12/26. Past Psychiatric History: Inpt: [facility] 6 years ago. Past medication trials: olanzapine, ativan 2mg/daily [facility] Medical History Bipolar I disorder with catatonia Diagnostics Vital Signs (24Hr): Vital Signs - 24 hr 12/25/24 11:19 12/25/24 15:23 12/25/24 19:13 Temperature 98.0 F 98.2 F 98.6 F Pulse Rate 98 95 103 H Respiratory Rate 18 18 16 Blood Pressure 144/100 H 144/98 H 148/100 H Pulse Oximetry 95 93 95 Oxygen Delivery Method Room Air Room Air Room Air Oxygen Flow Rate 12/25/24 23:44 12/26/24 03:54 12/26/24 06:24 Temperature 98.7 F 97.0 F 97.4 F Pulse Rate 90 115 H 106 H Respiratory Rate 17 17 18 Blood Pressure 164/96 H 128/86 128/95 H Pulse Oximetry 94 98 94 Oxygen Delivery Method Room Air Room Air Room Air Oxygen Flow Rate 12/26/24 07:39 12/26/24 07:40 12/26/24 07:45 Temperature 98.6 F Pulse Rate 114 H 122 H 129 H Respiratory Rate 26 H 21 H 18 Blood Pressure 177/100 H 156/98 H 151/98 H Pulse Oximetry 94 94 94 Oxygen Delivery Method Nasal Cannula with ETCO2 Nasal Cannula with ETCO2 Nasal Cannula with ETCO2 Oxygen Flow Rate 4 4 4 12/26/24 07:50 12/26/24 08:00 12/26/24 08:05 Temperature 97.6 F Pulse Rate 112 H 120 H 86 Respiratory Rate 18 18 18 Blood Pressure 130/85 152/96 H 147/96 H Pulse Oximetry 94 94 94 Oxygen Delivery Method Room Air Room Air Room Air Oxygen Flow Rate 4 BMI result Body Mass Index 29.8 Labs 12/24/24 10:23 12/26/24 08:55 Labs: Laboratory Results - last 48 hr 12/24/24 12/24/24 12/24/24 11:28 11:36 17:14 Hold Purple Top Sodium 138 Potassium 3.6 Chloride 107 Carbon Dioxide 24 Anion Gap 11 L BUN 7 L Creatinine 0.76 Estim Creat Clear Calc 164.3 Estimated GFR > 60 POC Glucose 167 H 142 H Random Glucose 157 H Calcium 9.0 Phosphorus 2.5 L Magnesium 1.9 Albumin 3.7 Triglycerides 254 H 12/24/24 12/25/24 12/25/24 22:38 03:58 06:49 Hold Purple Top SEE NOTE Sodium 138 Potassium 4.0 Chloride 106 Carbon Dioxide 23 Anion Gap 13 BUN 8 L Creatinine 0.75 Estim Creat Clear Calc 166.5 Estimated GFR > 60 POC Glucose 143 H 166 H Random Glucose 165 H Calcium 9.5 Phosphorus 3.3 Magnesium 2.1 Albumin 3.9 Triglycerides 12/25/24 12/25/24 12/25/24 09:51 15:52 23:54 Hold Purple Top Sodium Potassium Chloride Carbon Dioxide Anion Gap BUN Creatinine Estim Creat Clear Calc Estimated GFR POC Glucose 181 H 194 H 175 H Random Glucose Calcium Phosphorus Magnesium Albumin Triglycerides 12/26/24 12/26/24 04:30 08:55 Hold Purple Top Sodium 135 Potassium 4.5 Chloride 106 Carbon Dioxide 22 Anion Gap 12 BUN 10 Creatinine 0.76 Estim Creat Clear Calc 164.3 Estimated GFR > 60 POC Glucose 158 H Random Glucose 199 H Calcium 9.8 Phosphorus 3.3 Magnesium 1.9 Albumin 4.2 Triglycerides Imaging Radiology Impressions: ITS Impressions Fluoroscopy 12/16/24 15:33 IMPRESSION: Successful fluoroscopy-guided L4-5 lumbar puncture performed. CSF fluid collected was sent to lab as per referring physician's orders. Electronically signed by: Liam Olea MD 12/18/2024 12:41 PM EDT RP Brain MRI 12/17/24 16:03 IMPRESSION: No acute stroke/ischemia or acute brain abnormality. Electronically signed by: Lenard Quiroga MD 12/18/2024 07:19 AM EDT RP Mental Status Exam Mental Status Exam Narrative: Appearance: wearing hospital gown, fair hygiene, in NAD behavior: not engaging, staring Psychomotor: retardation noted, waxy flexibility still present Speech: mute TP: unable to assess TC: unable to assess Medications Medications Current Medications Acetaminophen (Acetaminophen Supp 650 Mg Supp.Rect) 650 mg OK Q6H PRN PRN Reason: Pain, Mild 1-3,fever,headache Last Admin: 12/22/24 01:01 Dose: 650 mg Enoxaparin Sodium (Enoxaparin Sodium 40 Mg/0.4 Ml Syringe) 40 mg SUBCUT Q24H [facility]AD[facility] Last Admin: 12/25/24 20:21 Dose: 40 mg Nutrition (Parenteral) (Parenteral Nutrition) 1,920 mls @ 80 mls/hr IV .Q24H [facility]; Protocol Stop: 12/26/24 20:59 Last Admin: 12/25/24 20:22 Dose: 80 mls/hr Lorazepam (Lorazepam 2 Mg/Ml Vial) 1 mg IVPUSH Q6H [facility] Last Admin: 12/26/24 06:18 Dose: Not Given Naloxone HCl (Naloxone Hcl 0.4 Mg/Ml Vial) 0.04 mg IVPUSH Q5M PRN PRN Reason: Excessive sedation or RR < 8 Nicotine (Nicotine 21 Mg Patch.Td24) 21 mg TRANSDERMA DAILY [facility] Last Admin: 12/26/24 08:29 Dose: 21 mg Nystatin (Nystatin Powder 15 Gm Bottle) 1 appl TOPICAL BID [facility]; Protocol Last Admin: 12/26/24 08:29 Dose: 1 appl Ondansetron HCl (Ondansetron Hcl 4 Mg/2 Ml Vial) 4 mg IVPUSH Q8H PRN PRN Reason: Nausea and Vomiting Pharmacy Consult (Consult Rx Parenteral Nutrition Ordering) 1 each MISCELLANE DAILY PRN PRN Reason: Consult order Allergies Allergies Allergy/AdvReac Type Severity Reaction Status Date / Time sertraline [From Zoloft] Allergy Unknown Verified 12/14/24 16:10 Assessment & Plan Assessment & Plan (1) Catatonia: Status: Acute Code(s): F06.1 - Catatonic disorder due to known physiological condition Plan Mr. Ramsey is a 34 year-old male who was transferred to [facility] from [facility] due to progressive increase in s/s of catatonia. He presented with tachypnea, hypertension, hypoxia, did become afebrile, but prior reports of pt presenting as sweating. He also had Leukocytosis, mildly elevated CPK in 400's. Lactic Acid was wnl. No hotn. He was seen by neurology. Had LP which was negative for [employer] infections or other abnormalities. He has been progressively less responsive to benzodiazepine for s/s of catatonia (including mutism, black stare, waxy flexibility). No oral intake, now on PPN. PLAN -continue ECT - Continue PPN - Discussed with Dr. Emmanuel ativan dosing, would recommend lowering ativan to 1mg IV q6h as higher doses (or lower doses for that matter) have not shown to have therapeutic effect in s/s of catatonia at this point. - DVT prophylaxis Total time managing care of this patient today ____ minutes.
--- NOTE | 2024-12-26 10:47 | MHC.CLN ---
F/U PT WITHOUT SIGNIFICANT PO INTAKE R/T CATATONIA NOTED 12/25 PT REFUSING TO EAT WITH NO INTEREST IN FOOD DIET ORDER ADVANCED TO CHOPPED DIET-CONTINUES TRIALS WITH INSTRUCTIONAL SUPPORT TECHNICIAN REVIEWED LABS DISCUSSED WITH PHARMACY RESTART PPN AT MAX GOAL RATE 80ML/HR WITH 88G LIPIDS TO PROVIDE 1859TOTAL KCALS (23KCALS/KG), 82G PROTEIN (.9G/KG), 192G DEXTROSE MONITOR TRIGS CLOSELY REPLETE LYTES NEEDED MONITOR PO INTAKE CLOSELY-WILL DECREASE PPN PO IMPROVES RD CAN BE REACHED VIA TIGER CONNECT DURING OFF HOURS IF NEEDED
--- NOTE | 2024-12-26 14:20 | MHC.SL.SWA ---
Speech Pathologist Impression: Risk of Aspiration Risk of Aspiration Due to: History of Pneumonia Dysphasia Diet Status: UPGRADE to REGULAR textures Liquid Consistency and Strategies for Safe Swallow: Liquid Intake Recommendation: Thin Liquid Intake Strategies: Small Sips Solid Food Consistency: Dietary Recommendations: Regular Additional Modifications to Solid Foods: Patient w/ mildly slowed chewing, but otherwise oral and pharyngeal phase are deemed functional. Good clearance and no overt s/s of aspiration. Recommend advance back to baseline diet REGULAR solids and THIN liquids, pills WHOLE with LIQUID. Please re-refer with any changes or further concern. Oral Medication Intake: Whole with Liquid Please contact the pharmacy regarding appropriate crushable or liquid drug formulations that are available whenever modified delivery is recommended. Compensatory Strategies and Precautions to be Taken for Safe Swallow: Sitting Upright (90 deg) Small Bites and Sips Alternate Liquids/Solids Rate of Ingestion Change Supervision While Eating and Drinking for Safe Swallow: Total Supervision (1:1) Swallowing Recommended Treatments: Compens. Strategy Educat. Recommendation for Speech: D/C Detasseler Clinican/Clinical Fellow: No Supervisory Statement: I have reviewed and agree with the student/clinical fellow's documentation: N/A Speech Language Pathologist: Ayana Gates M.A., CCC-NURSES [employer]
--- NOTE | 2024-12-26 15:53 | MHC.CM.PN ---
EMR reviewed and per MD rounds, pt is not medically cleared for discharge due to awaiting mental status improvement, and ECT treatment, pt will remain hospitalized through the weekend.
[2024-12-26] MEDS: Enoxaparin Sodium 40 MG/0.4 ML SYRINGE SUBCUT (22:30)
[2024-12-26] MEDS: Parenteral Nutrition 1,920 ML 80 ML IV (22:30)
[2024-12-27 03:44] VITALS: BP 161/94; PULSE 112; RESP 16; TEMP 36.6; O2SAT 97
[2024-12-27] MEDS: LORazepam 2 MG/ML VIAL 1 MG IVPUSH ×3 (06:17→18:14)
[2024-12-27 07:21] LABS: Albumin Level 4.2 g/dL (3.5-5.0); Anion Gap 14 (12-20); Blood Urea Nitrogen 11 mg/dL (9-16); Calcium 9.9 mg/dL (8.4-10.2); Carbon Dioxide 23 mmol/L (22-29); Chloride 103 mmol/L (96-108); Creatinine Clr Calc Pharmacy 160.1; Estimated Glomerular Filt Rate > 60; Glucose Random 202 mg/dL (60-115); Phosphorus 3.2 mg/dL (2.7-4.5); Potassium 4.5 mmol/L (3.3-5.1); Sodium 135 mmol/L (135-145); Triglycerides 267 mg/dL (<150)
[2024-12-27 07:22] VITALS: BP 140/90; PULSE 108; RESP 20; TEMP 36.8; O2SAT 96
[2024-12-27] MEDS: Nicotine 21 MG PATCH.TD24 TRANSDERMA (09:51)
--- NOTE | 2024-12-27 09:52 | P.PNIM_ITS ---
Subjective Subjective Date of Service: 12/27/24 Interval History: Ate well yesterday lunch, but did not eat dinner Physical Exam 2 Vital Signs: Vital Signs: Last Vital Signs Temp 98.2 F 12/27/24 07:22 Pulse 108 H 12/27/24 07:22 Resp 20 12/27/24 07:22 BP 140/90 H 12/27/24 07:22 Pulse Ox 96 12/27/24 07:22 O2 Del Method Room Air 12/27/24 07:22 O2 Flow Rate 4 12/26/24 08:05 BMI result Body Mass Index 29.8 Less responsive today than yesterday Objective Data Active Medications Acetaminophen (Acetaminophen Supp 650 Mg Supp.Rect) 650 mg NE Q6H PRN PRN Reason: Pain, Mild 1-3,fever,headache Last Admin: 12/22/24 01:01 Dose: 650 mg Documented By: MARITZA Enoxaparin Sodium (Enoxaparin Sodium 40 Mg/0.4 Ml Syringe) 40 mg SUBCUT Q24H [facility] Last Admin: 12/26/24 22:30 Dose: 40 mg Documented By: LIDA Nutrition (Parenteral) (Parenteral Nutrition) 1,920 mls @ 80 mls/hr IV .Q24H [facility]; Protocol Stop: 12/27/24 20:59 Last Infusion: 12/26/24 22:45 Dose: 80 mls/hr Documented By: LIDA Nutrition (Parenteral) (Parenteral Nutrition) 1,920 mls @ 80 mls/hr IV .Q24H [facility]; Protocol Stop: 12/28/24 20:59 Lorazepam (Lorazepam 2 Mg/Ml Vial) 1 mg IVPUSH Q6H [facility] Last Admin: 12/27/24 06:17 Dose: 1 mg Documented By: LIDA Naloxone HCl (Naloxone Hcl 0.4 Mg/Ml Vial) 0.04 mg IVPUSH Q5M PRN PRN Reason: Excessive sedation or RR < 8 Nicotine (Nicotine 21 Mg Patch.Td24) 21 mg TRANSDERMA DAILY [facility] Last Admin: 12/26/24 08:29 Dose: 21 mg Documented By: CECE Nystatin (Nystatin Powder 15 Gm Bottle) 1 appl TOPICAL BID [facility]AD[facility]; Protocol Last Admin: 12/26/24 22:31 Dose: 1 appl Documented By: HO.[email or web address] Comments: perineum Ondansetron HCl (Ondansetron Hcl 4 Mg/2 Ml Vial) 4 mg IVPUSH Q8H PRN PRN Reason: Nausea and Vomiting Pharmacy Consult (Consult Rx Parenteral Nutrition Ordering) 1 each MISCELLANE DAILY PRN PRN Reason: Consult order Labs 12/24/24 10:23 12/27/24 06:27 Labs: Laboratory Results - last 24 hr 12/27/24 06:27 Hold Purple Top SEE NOTE Anion Gap 14 Estim Creat Clear Calc 160.1 Estimated GFR > 60 Random Glucose 202 H Calcium 9.9 Phosphorus 3.2 Magnesium 2.0 Albumin 4.2 Triglycerides 267 H Assessment and Plan (1) Toxic metabolic encephalopathy: Status: Acute (2) Catatonia: Status: Acute Plan 34M PMH bipolar 1 [facility] Acute metabolic\Toxic encephalopathy likely related to catatonia LP, Negative encephalitis panel, Negative CSF cultures, dcd IV Acyclovir MRI negative for any acute findings EEG negative for any seizure activities Lorazepam 1mg Q6H Psychiatry following, continue ECT treatment as scheduled received 4 ECT by now, to continue three times a week MWF tends to be verbal and more fluid day of ECT, then becomes more muted Continue PPN until he is reliably eating po, now on chopped with thins but not reliably eating Acute hypokalemia replaced Sepsis and acute hypoxic respiratory failure secondary to aspiration pneumonia with risk for MRSA given recent hospitalization Sepsis resolved completed 10 days zosyn 12/25/24 Weaned O2 off Bipolar 1 with catatonia versus malignant catatonia see above DVT prophylaxis with Lovenox Full Code reason for continued hospitalization: Awaiting mental status improvement, ECT treatment Quality Stroke Does the patient have a stroke diagnosis?: No VTE Prior VTE?: No VTE Risk Level:: Medical - moderate - high VTE Device Contraindication: Treatment Not Indicated VTE Drug Contraindication: N/A - Med Ordered
[2024-12-27] MEDS: Nystatin Powder 15 GM BOTTLE 1 APPL TOPICAL ×2 (09:53→20:45)
[2024-12-27 11:45] VITALS: BP 138/85; PULSE 112; RESP 20; TEMP 36.5; O2SAT 96
[2024-12-27 15:37] VITALS: BP 123/77; PULSE 114; RESP 18; TEMP 36.6; O2SAT 96
[2024-12-27 19:27] VITALS: BP 137/84; PULSE 110; RESP 17; TEMP 36.6; O2SAT 94
[2024-12-27] MEDS: Enoxaparin Sodium 40 MG/0.4 ML SYRINGE SUBCUT (20:44)
[2024-12-27] MEDS: Parenteral Nutrition 1,920 ML 80 ML IV (20:45)
[2024-12-27 23:25] VITALS: BP 134/92; PULSE 109; RESP 17; TEMP 36.7; O2SAT 95
[2024-12-28] MEDS: LORazepam 2 MG/ML VIAL 1 MG IVPUSH ×3 (01:03→11:42)
[2024-12-28 03:37] VITALS: BP 129/87; PULSE 112; RESP 16; TEMP 36.3; O2SAT 94
[2024-12-28 07:37] VITALS: BP 141/101; PULSE 121; RESP 18; TEMP 36.7; O2SAT 97
[2024-12-28 08:29] LABS: Albumin Level 4.5 g/dL (3.5-5.0); Anion Gap 18 (12-20); Blood Urea Nitrogen 13 mg/dL (9-16); Calcium 10.2 mg/dL (8.4-10.2); Carbon Dioxide 22 mmol/L (22-29); Chloride 100 mmol/L (96-108); Creatinine Clr Calc Pharmacy 166.5; Estimated Glomerular Filt Rate > 60; Glucose Random 228 mg/dL (60-115); Phosphorus 2.9 mg/dL (2.7-4.5); Potassium 4.5 mmol/L (3.3-5.1); Sodium 135 mmol/L (135-145)
[2024-12-28] MEDS: Nicotine 21 MG PATCH.TD24 TRANSDERMA (08:33)
[2024-12-28] MEDS: Nystatin Powder 15 GM BOTTLE 1 APPL TOPICAL ×2 (08:36→21:40)
--- NOTE | 2024-12-28 08:50 | HO.PM.IMPN ---
Subjective Subjective Date of Service: 12/28/24 Interval History: minimal vocalization today, inconsistent intake Physical Exam Vital Signs: Vital Signs: Last Vital Signs Temp 98.1 F 12/28/24 07:37 Pulse 121 H 12/28/24 07:37 Resp 18 12/28/24 07:37 BP 141/101 H 12/28/24 07:37 Pulse Ox 97 12/28/24 07:37 O2 Del Method Room Air 12/28/24 07:37 O2 Flow Rate 4 12/26/24 08:05 BMI result Body Mass Index 29.8 answered no once, otherwise not vocalizing or following commands, alert and tracking Objective Data Active Medications Acetaminophen (Acetaminophen Supp 650 Mg Supp.Rect) 650 mg TN Q6H PRN PRN Reason: Pain, Mild 1-3,fever,headache Last Admin: 12/22/24 01:01 Dose: 650 mg Documented By: MARITZA Enoxaparin Sodium (Enoxaparin Sodium 40 Mg/0.4 Ml Syringe) 40 mg SUBCUT Q24H [facility]AD[facility] Last Admin: 12/27/24 20:44 Dose: 40 mg Documented By: MARITZA Nutrition (Parenteral) (Parenteral Nutrition) 1,920 mls @ 80 mls/hr IV .Q24H [facility]; Protocol Stop: 12/28/24 20:59 Last Admin: 12/27/24 20:45 Dose: 80 mls/hr Documented By: MARITZA Nutrition (Parenteral) (Parenteral Nutrition) 1,920 mls @ 80 mls/hr IV .Q24H [facility]AD[facility]; Protocol Stop: 12/29/24 20:59 Lorazepam (Lorazepam 2 Mg/Ml Vial) 1 mg IVPUSH Q6H [facility] Last Admin: 12/28/24 06:11 Dose: 1 mg Documented By: MARITZA Naloxone HCl (Naloxone Hcl 0.4 Mg/Ml Vial) 0.04 mg IVPUSH Q5M PRN PRN Reason: Excessive sedation or RR < 8 Nicotine (Nicotine 21 Mg Patch.Td24) 21 mg TRANSDERMA DAILY [facility] Last Admin: 12/28/24 08:33 Dose: 21 mg Documented By: CIRILO Nystatin (Nystatin Powder 15 Gm Bottle) 1 appl TOPICAL BID [facility]ADIM[facility]; Protocol Last Admin: 12/28/24 08:36 Dose: 1 appl Documented By: CIRILO Ondansetron HCl (Ondansetron Hcl 4 Mg/2 Ml Vial) 4 mg IVPUSH Q8H PRN PRN Reason: Nausea and Vomiting Pharmacy Consult (Consult Rx Parenteral Nutrition Ordering) 1 each MISCELLANE DAILY PRN PRN Reason: Consult order Labs 12/24/24 10:23 12/28/24 06:56 Labs: Laboratory Results - last 24 hr 12/28/24 06:56 Hold Purple Top SEE NOTE Anion Gap 18 Estim Creat Clear Calc 166.5 Estimated GFR > 60 Random Glucose 228 H Calcium 10.2 Phosphorus 2.9 Magnesium 2.0 Albumin 4.5 Assessment and Plan (1) Toxic metabolic encephalopathy: Status: Acute (2) Catatonia: Status: Acute Plan 34M PMH bipolar 1 who was sent [facility] for catatonia and acute hypoxia Acute metabolic\Toxic encephalopathy likely related to catatonia LP, Negative encephalitis panel, Negative CSF cultures, dcd IV Acyclovir MRI negative for any acute findings EEG negative for any seizure activities Lorazepam 1mg Q6H Psychiatry following, continue ECT treatment as scheduled received 4 ECT by now, to continue three times a week MWF tends to be verbal and more fluid day of ECT, then becomes more muted Continue PPN until he is reliably eating po, now on chopped with thins but not reliably eating Acute hypokalemia replaced Sepsis and acute hypoxic respiratory failure secondary to aspiration pneumonia with risk for MRSA given recent hospitalization Sepsis resolved completed 10 days zosyn 12/25/24 Weaned O2 off Bipolar 1 with catatonia versus malignant catatonia see above DVT prophylaxis with Lovenox Full Code reason for continued hospitalization: Awaiting mental status improvement, ECT treatment Quality Stroke Does the patient have a stroke diagnosis?: No VTE Prior VTE?: No VTE Risk Level:: Medical - moderate - high VTE Device Contraindication: Treatment Not Indicated VTE Drug Contraindication: N/A - Med Ordered
[2024-12-28 12:00] VITALS: BP 136/80; PULSE 113; RESP 18; TEMP 36.4; O2SAT 100
[2024-12-28] MEDS: 0.9 % Sodium Chloride 500 ML IV (15:07)
[2024-12-28 16:00] VITALS: BP 123/83; PULSE 84; RESP 18; TEMP 36.4; O2SAT 95
[2024-12-28 19:27] VITALS: BP 133/85; PULSE 123; RESP 18; TEMP 37.3; O2SAT 95
[2024-12-28] MEDS: Parenteral Nutrition 1,920 ML 80 ML IV (21:31)
[2024-12-28] MEDS: Enoxaparin Sodium 40 MG/0.4 ML SYRINGE SUBCUT (21:32)
[2024-12-28 23:59] VITALS: BP 157/90; PULSE 123; RESP 19; TEMP 36.8; O2SAT 92
[2024-12-29] VITALS (12 sets, daily range): BP systolic 123–164; BP diastolic 81–107; PULSE 95–140; RESP 16–22; TEMP 36.4–36.8; O2SAT 92–96
[2024-12-29] MEDS: Lactated Ringers 1,000 ML 100 ML IVCONT (06:55)
[2024-12-29 07:01] LABS: Anion Gap 15 (12-20); Blood Urea Nitrogen 15 mg/dL (9-16); Calcium 9.9 mg/dL (8.4-10.2); Carbon Dioxide 22 mmol/L (22-29); Chloride 101 mmol/L (96-108); Creatinine Clr Calc Pharmacy 152.3; Estimated Glomerular Filt Rate > 60; Glucose Random 287 mg/dL (60-115); Phosphorus 4.1 mg/dL (2.7-4.5); Potassium 4.3 mmol/L (3.3-5.1); Sodium 134 mmol/L (135-145)
--- NOTE | 2024-12-29 08:07 | MHC.SHP ---
Pre-Procedural Eval Section A - 24 Hr Update-Section A only Date of Service: 12/29/24 The patient is an INPATIENT: Yes Changes since office visit: Yes Cold of Flu in the past 2 weeks and Yes Changes in Medication; No New Medical Problems and No Patient answered all questions The patient has been examined within 24 hours of the surgical procedure. The History & Physical has been completed within 30 days and I have reviewed it.: Yes Section B - Complete if H&P > 30 days Chief Complaint: pneumonia, hypoxia, sepsis Allergies: Allergies Allergy/AdvReac Type Severity Reaction Status Date / Time sertraline [From Zoloft] Allergy Unknown Verified 12/14/24 16:10 Plan I have reviewed the history and physical and performed a pertinent physical examination on my patient. No changes have occurred unless specified. Time Spent With Patient Time: Total time managing care of this patient today ____ minutes.
--- NOTE | 2024-12-29 08:09 | HO.ECTPROC ---
ECT Procedure Note Diagnosis/Treatment Date of Service: 12/29/24 Diagnosis: Bipolar disorder and Catatonia Current Treatment Number: 5 Treatment: Series Interval Clinical Notes: no change alert staring but mute no new medical concerns Time: Total time managing care of this patient today ____ minutes. ECT Settings Device: THYMATRON DGx Electrode Placement: Bitemporal Program/Pulse Width: 0.50 Energy Percent: 100 Seizure Duration By EEG (in seconds): 49 Medications Administration General Anesthetic: Etomidate (14) Muscle Relaxant: Succinylcholine (140) Ancillary Medications Cardiovascular Medications: Esmolol (50) Treatment Recommendations Notes: ativan 2 post also
[2024-12-29] MEDS: LORazepam 2 MG/ML VIAL IV (08:16)
[2024-12-29] MEDS: Nicotine 21 MG PATCH.TD24 TRANSDERMA (09:57)
[2024-12-29] MEDS: Nystatin Powder 15 GM BOTTLE 1 APPL TOPICAL ×2 (09:57→23:31)
--- NOTE | 2024-12-29 11:04 | MHC.CM.PN ---
PER MD ROUNDS, PT NOT MEDICALLY CLEARED DCP TBD PENDING CARE TEAM EVAL, HOME VS IPLOC
--- NOTE | 2024-12-29 11:12 | MHC.CLN ---
F/U PO INTAKE REMAINS VARIABLE RANGING FROM 0-100% PT IS CURRENTLY NPO R/T ECT TX REVIEWED LABS DISCUSSED WITH PHARMACY CONTINUE PPN AT MAX GOAL RATE 80ML/HR WITH 88G LIPIDS PROVIDES 1859TOTAL KCALS (23KCALS/KG), 82G PROTEIN (.9G/KG), 192G DEXTROSE MONITOR TRIGS CLOSELY REPLETE LYTES NEEDED MONITOR PO INTAKE CLOSELY-WILL DECREASE PPN PO IMPROVES
--- NOTE | 2024-12-29 11:45 | P.PNIM_ITS ---
Subjective Subjective Date of Service: 12/29/24 Interval History: seen after ECT, talking and eating Physical Exam 2 Vital Signs: Vital Signs: Last Vital Signs Temp 98.1 F 12/29/24 10:46 Pulse 103 H 12/29/24 10:46 Resp 22 H 12/29/24 10:46 BP 126/89 12/29/24 10:46 Pulse Ox 95 12/29/24 10:46 O2 Del Method Room Air 12/29/24 10:46 O2 Flow Rate 2 12/29/24 08:22 BMI result Body Mass Index 29.8 alert, talking Objective Data Active Medications Acetaminophen (Acetaminophen Supp 650 Mg Supp.Rect) 650 mg NE Q6H PRN PRN Reason: Pain, Mild 1-3,fever,headache Last Admin: 12/22/24 01:01 Dose: 650 mg Documented By: MARITZA Enoxaparin Sodium (Enoxaparin Sodium 40 Mg/0.4 Ml Syringe) 40 mg SUBCUT Q24H [facility] Last Admin: 12/28/24 21:32 Dose: 40 mg Documented By: SANDRA Nutrition (Parenteral) (Parenteral Nutrition) 1,920 mls @ 80 mls/hr IV .Q24H [facility]ADIMIR; Protocol Stop: 12/29/24 20:59 Last Admin: 12/28/24 21:31 Dose: 80 mls/hr Documented By: SANDRA Nutrition (Parenteral) (Parenteral Nutrition) 1,920 mls @ 80 mls/hr IV .Q24H VLADIMIR; Protocol Stop: 12/30/24 20:59 Naloxone HCl (Naloxone Hcl 0.4 Mg/Ml Vial) 0.04 mg IVPUSH Q5M PRN PRN Reason: Excessive sedation or RR < 8 Nicotine (Nicotine 21 Mg Patch.Td24) 21 mg TRANSDERMA DAILY [facility] Last Admin: 12/29/24 09:57 Dose: 21 mg Documented By: PARADISE Nystatin (Nystatin Powder 15 Gm Bottle) 1 appl TOPICAL BID [facility]; Protocol Last Admin: 12/29/24 09:57 Dose: 1 appl Documented By: PARADISE Ondansetron HCl (Ondansetron Hcl 4 Mg/2 Ml Vial) 4 mg IVPUSH Q8H PRN PRN Reason: Nausea and Vomiting Pharmacy Consult (Consult Rx Parenteral Nutrition Ordering) 1 each MISCELLANE DAILY PRN PRN Reason: Consult order Labs 12/24/24 10:23 12/29/24 05:51 Labs: Laboratory Results - last 24 hr 12/29/24 05:51 Hold Purple Top SEE NOTE Anion Gap 15 Estim Creat Clear Calc 152.3 Estimated GFR > 60 Random Glucose 287 H Calcium 9.9 Phosphorus 4.1 Magnesium 2.0 Albumin 4.0 Assessment and Plan (1) Toxic metabolic encephalopathy: Status: Acute (2) Catatonia: Status: Acute Plan 34M PMH bipolar 1 who [facility] and acute hypoxia Acute metabolic\Toxic encephalopathy likely related to catatonia LP, Negative encephalitis panel, Negative CSF cultures, dcd IV Acyclovir MRI negative for any acute findings EEG negative for any seizure activities Lorazepam 1mg Q6H Psychiatry following, continue ECT treatment as scheduled received 4 ECT by now, to continue three times a week MWF tends to be verbal and more fluid day of ECT, then becomes more muted Continue PPN until he is reliably eating po, now on chopped with thins but not reliably eating Acute hypokalemia replaced Sepsis and acute hypoxic respiratory failure secondary to aspiration pneumonia with risk for MRSA given recent hospitalization Sepsis resolved completed 10 days zosyn 12/25/24 Weaned O2 off Bipolar 1 with catatonia versus malignant catatonia see above DVT prophylaxis with Lovenox Full Code reason for continued hospitalization: Awaiting mental status improvement, ECT treatment Quality Stroke Does the patient have a stroke diagnosis?: No VTE Prior VTE?: No VTE Risk Level:: Medical - moderate - high VTE Device Contraindication: Treatment Not Indicated VTE Drug Contraindication: N/A - Med Ordered
[2024-12-29] MEDS: Enoxaparin Sodium 40 MG/0.4 ML SYRINGE SUBCUT (21:30)
[2024-12-29] MEDS: Parenteral Nutrition 1,920 ML 80 ML IV (21:31)
[2024-12-30 02:12] VITALS: BP 132/79; PULSE 100; RESP 19; TEMP 36.6; O2SAT 96
[2024-12-30 03:54] VITALS: PULSE 89
[2024-12-30 06:28] LABS: Anion Gap 16 (12-20); Blood Urea Nitrogen 13 mg/dL (9-16); Calcium 9.8 mg/dL (8.4-10.2); Carbon Dioxide 22 mmol/L (22-29); Chloride 102 mmol/L (96-108); Creatinine Clr Calc Pharmacy 168.7; Estimated Glomerular Filt Rate > 60; Glucose Random 255 mg/dL (60-115); Phosphorus 3.3 mg/dL (2.7-4.5); Potassium 4.3 mmol/L (3.3-5.1); Sodium 136 mmol/L (135-145)
[2024-12-30 07:16] VITALS: BP 128/85; PULSE 97; RESP 18; TEMP 36.8; O2SAT 95
[2024-12-30] MEDS: Nicotine 21 MG PATCH.TD24 TRANSDERMA (08:53)
[2024-12-30] MEDS: Nystatin Powder 15 GM BOTTLE 1 APPL TOPICAL ×2 (08:54→22:01)
--- NOTE | 2024-12-30 10:26 | MHC.CLN ---
F/U NOTED PT EATING AND TALKING 12/29 PO INTAKE 12/29 0%, 50%, 0% DIET ADVANCED TO REGULAR REVIEWED LABS DISCUSSED WITH PHARMACY RECOMMEND PPN AT 80ML/HR PROVIDES 979 TOTAL KCALS, 82G PROTEIN (.9G/KG), 192G DEXTROSE HOLD LIPIDS TODAY REPLETE LYTES NEEDED MONITOR PO INTAKE CLOSELY-WILL DECREASE PPN PO IMPROVES
[2024-12-30 11:36] VITALS: BP 136/91; PULSE 97; RESP 18; TEMP 37.2; O2SAT 95
--- NOTE | 2024-12-30 11:43 | P.PNIM_ITS ---
Subjective Subjective Date of Service: 12/30/24 Interval History: not talking today Physical Exam 2 Vital Signs: Vital Signs: Last Vital Signs Temp 98.2 F 12/30/24 07:16 Pulse 97 12/30/24 07:16 Resp 18 12/30/24 07:16 BP 128/85 12/30/24 07:16 Pulse Ox 95 12/30/24 07:16 O2 Del Method Room Air 12/30/24 07:16 O2 Flow Rate 2 12/29/24 08:22 BMI result Body Mass Index 29.8 mute, not participatory Objective Data Active Medications Acetaminophen (Acetaminophen Supp 650 Mg Supp.Rect) 650 mg IN Q6H PRN PRN Reason: Pain, Mild 1-3,fever,headache Last Admin: 12/22/24 01:01 Dose: 650 mg Documented By: MARITZA Enoxaparin Sodium (Enoxaparin Sodium 40 Mg/0.4 Ml Syringe) 40 mg SUBCUT Q24H [facility] Last Admin: 12/29/24 21:30 Dose: 40 mg Documented By: LATOSHA Nutrition (Parenteral) (Parenteral Nutrition) 1,920 mls @ 80 mls/hr IV .Q24H [facility]; Protocol Stop: 12/30/24 20:59 Last Admin: 12/29/24 21:31 Dose: 80 mls/hr Documented By: LATOSHA Nutrition (Parenteral) (Parenteral Nutrition) 1,920 mls @ 80 mls/hr IV .Q24H [facility]; Protocol Stop: 12/31/24 20:59 Naloxone HCl (Naloxone Hcl 0.4 Mg/Ml Vial) 0.04 mg IVPUSH Q5M PRN PRN Reason: Excessive sedation or RR < 8 Nicotine (Nicotine 21 Mg Patch.Td24) 21 mg TRANSDERMA DAILY [facility] Last Admin: 12/30/24 08:53 Dose: 21 mg Documented By: VICTOR HUGO Nystatin (Nystatin Powder 15 Gm Bottle) 1 appl TOPICAL BID [facility]; Protocol Last Admin: 12/30/24 08:54 Dose: 1 appl Documented By: VICTOR HUGO Ondansetron HCl (Ondansetron Hcl 4 Mg/2 Ml Vial) 4 mg IVPUSH Q8H PRN PRN Reason: Nausea and Vomiting Pharmacy Consult (Consult Rx Parenteral Nutrition Ordering) 1 each MISCELLANE DAILY PRN PRN Reason: Consult order Labs 12/24/24 10:23 12/30/24 05:13 Labs: Laboratory Results - last 24 hr 12/30/24 05:13 Anion Gap 16 Estim Creat Clear Calc 168.7 Estimated GFR > 60 Random Glucose 255 H Calcium 9.8 Phosphorus 3.3 Magnesium 2.0 Albumin 4.0 Assessment and Plan (1) Toxic metabolic encephalopathy: Status: Acute (2) Catatonia: Status: Acute Plan 34M PMH bipolar 1 [facility] Acute metabolic\Toxic encephalopathy likely related to catatonia LP, Negative encephalitis panel, Negative CSF cultures, dcd IV Acyclovir MRI negative for any acute findings EEG negative for any seizure activities Lorazepam 1mg Q6H Psychiatry following, continue ECT treatment as scheduled received 4 ECT by now, to continue three times a week MWF tends to be verbal and more fluid day of ECT, then becomes more muted Continue PPN until he is reliably eating po, now on chopped with thins but not reliably eating Acute hypokalemia replaced Sepsis and acute hypoxic respiratory failure secondary to aspiration pneumonia with risk for MRSA given recent hospitalization Sepsis resolved completed 10 days zosyn 12/25/24 Weaned O2 off Bipolar 1 with catatonia versus malignant catatonia see above DVT prophylaxis with Lovenox Full Code reason for continued hospitalization: Awaiting mental status improvement, ECT treatment Quality Stroke Does the patient have a stroke diagnosis?: No VTE Prior VTE?: No VTE Risk Level:: Medical - moderate - high VTE Device Contraindication: Treatment Not Indicated VTE Drug Contraindication: N/A - Med Ordered
[2024-12-30 15:45] VITALS: BP 140/52; PULSE 102; RESP 18; TEMP 36.2; O2SAT 95
[2024-12-30 19:40] VITALS: BP 150/80; PULSE 106; RESP 18; TEMP 37.7; O2SAT 96
[2024-12-30] MEDS: Parenteral Nutrition 1,920 ML 80 ML IV (21:48)
[2024-12-31] VITALS (15 sets, daily range): BP systolic 119–156; BP diastolic 78–101; PULSE 96–117; RESP 14–24; TEMP 36.4–37.2; O2SAT 93–97
--- NOTE | 2024-12-31 07:02 | MHC.SHP ---
Pre-Procedural Eval Section A - 24 Hr Update-Section A only Date of Service: 12/31/24 The patient is an INPATIENT: Yes Changes since office visit: Yes Cold of Flu in the past 2 weeks, Yes New Medical Problems and Yes Changes in Medication; No Patient answered all questions The patient has been examined within 24 hours of the surgical procedure. The History & Physical has been completed within 30 days and I have reviewed it.: Yes Section B - Complete if H&P > 30 days Chief Complaint: pneumonia, hypoxia, sepsis Allergies: Allergies Allergy/AdvReac Type Severity Reaction Status Date / Time sertraline [From Zoloft] Allergy Unknown Verified 12/14/24 16:10 Plan I have reviewed the history and physical and performed a pertinent physical examination on my patient. No changes have occurred unless specified. Time Spent With Patient Time: Total time managing care of this patient today ____ minutes.
[2024-12-31 07:05] LABS: Albumin Level 4.1 g/dL (3.5-5.0); Anion Gap 15 (12-20); Blood Urea Nitrogen 16 mg/dL (9-16); Calcium 9.9 mg/dL (8.4-10.2); Carbon Dioxide 23 mmol/L (22-29); Chloride 102 mmol/L (96-108); Creatinine Clr Calc Pharmacy 173.4; Estimated Glomerular Filt Rate > 60; Glucose Random 261 mg/dL (60-115); Phosphorus 3.8 mg/dL (2.7-4.5); Potassium 4.5 mmol/L (3.3-5.1); Sodium 135 mmol/L (135-145)
[2024-12-31] MEDS: Lactated Ringers 1,000 ML 50 ML IVCONT (07:07)
--- NOTE | 2024-12-31 07:27 | HO.ECTPROC ---
ECT Procedure Note Diagnosis/Treatment Date of Service: 12/31/24 Diagnosis: Catatonia Current Treatment Number: 6 Treatment: Series Interval Clinical Notes: pt seen remains mostly non verbal withdrawn intense stare ect completed BT Time: Total time managing care of this patient today ____ minutes. ECT Settings Device: THYMATRON DGx Electrode Placement: Bitemporal Program/Pulse Width: 0.50 Energy Percent: 100 Seizure Duration By EEG (in seconds): 51 Medications Administration General Anesthetic: Etomidate (14) Muscle Relaxant: Succinylcholine (140) Ancillary Medications Cardiovascular Medications: Labetolol (10) Miscillaneous Medications: Other ([id number] ) Airway Management Airway Management: Bag Mask Ventilation Treatment Recommendations No Changes Recommended: No change Pt Tolerated Procedure w/o Issue: Yes
[2024-12-31] MEDS: LORazepam 2 MG/ML VIAL IVPUSH (07:32)
[2024-12-31 07:41] LABS: Triglycerides 135 mg/dL (<150)
--- NOTE | 2024-12-31 09:53 | HO.PM.IMPN ---
Subjective Subjective Date of Service: 12/31/24 Interval History: no complaints Physical Exam Vital Signs: Vital Signs: Last Vital Signs Temp 98.4 F 12/31/24 08:30 Pulse 96 12/31/24 08:30 Resp 18 12/31/24 08:30 BP 136/97 H 12/31/24 08:30 Pulse Ox 93 12/31/24 08:30 O2 Del Method Room Air 12/31/24 08:30 O2 Flow Rate 4 12/31/24 08:15 BMI result Body Mass Index 29.8 alert, talking Objective Data Active Medications Acetaminophen (Acetaminophen Supp 650 Mg Supp.Rect) 650 mg [place] Q6H PRN PRN Reason: Pain, Mild 1-3,fever,headache Last Admin: 12/22/24 01:01 Dose: 650 mg Documented By: MARITZA Enoxaparin Sodium (Enoxaparin Sodium 40 Mg/0.4 Ml Syringe) 40 mg SUBCUT Q24H [facility] Last Admin: 12/30/24 22:03 Dose: Not Given Documented By: NOLAN Non-Admin Reason: Patient Refused Nutrition (Parenteral) (Parenteral Nutrition) 1,920 mls @ 80 mls/hr IV .Q24H [facility]; Protocol Stop: 12/31/24 23:02 Last Admin: 12/30/24 21:48 Dose: 80 mls/hr Documented By: NOLAN Lactated Ringer's (Lr) 1,000 mls @ 50 mls/hr IVCONT .Q20H [facility] Last Admin: 12/31/24 07:07 Dose: 50 mls/hr Documented By: MATT Lactated Ringer's (Lr) 1,000 mls @ 50 mls/hr IVCONT .Q20H [facility] Naloxone HCl (Naloxone Hcl 0.4 Mg/Ml Vial) 0.04 mg IVPUSH Q5M PRN PRN Reason: Excessive sedation or RR < 8 Naloxone HCl (Naloxone Hcl 0.4 Mg/Ml Vial) 0.04 mg IVPUSH Q5M PRN PRN Reason: Excessive sedation or RR < 8 Nicotine (Nicotine 21 Mg Patch.Td24) 21 mg TRANSDERMA DAILY [facility] Last Admin: 12/30/24 08:53 Dose: 21 mg Documented By: VICTOR HUGO Nystatin (Nystatin Powder 15 Gm Bottle) 1 appl TOPICAL BID [facility]; Protocol Last Admin: 12/30/24 22:01 Dose: 1 appl Documented By: NOLAN Ondansetron HCl (Ondansetron Hcl 4 Mg/2 Ml Vial) 4 mg IVPUSH Q8H PRN PRN Reason: Nausea and Vomiting Pharmacy Consult (Consult Rx Parenteral Nutrition Ordering) 1 each MISCELLANE DAILY PRN PRN Reason: Consult order Labs 12/24/24 10:23 12/31/24 05:44 Labs: Laboratory Results - last 24 hr 12/31/24 05:44 Hold Purple Top SEE NOTE Anion Gap 15 Estim Creat Clear Calc 173.4 Estimated GFR > 60 Random Glucose 261 H Calcium 9.9 Phosphorus 3.8 Magnesium 2.0 Albumin 4.1 Triglycerides 135 Assessment and Plan (1) Toxic metabolic encephalopathy: Status: Acute (2) Catatonia: Status: Acute Plan 34M PMH bipolar 1 who was sent for [facility] for catatonia and acute hypoxia Acute metabolic\Toxic encephalopathy likely related to catatonia LP, Negative encephalitis panel, Negative CSF cultures, dcd IV Acyclovir MRI negative for any acute findings EEG negative for any seizure activities Psychiatry following, continue ECT treatment as scheduled received 5 ECT by now, to continue three times a week MWF tends to be verbal, eating, and more fluid day of ECT, then becomes more muted and does not eat on non ECT days Continue PPN until he is reliably eating po, now on chopped with thins but only eating on ECT days Acute hypokalemia replaced Sepsis and acute hypoxic respiratory failure secondary to aspiration pneumonia with risk for MRSA given recent hospitalization Sepsis resolved completed 10 days zosyn 12/25/24 Weaned O2 off Bipolar 1 with catatonia versus malignant catatonia see above DVT prophylaxis with Lovenox Full Code reason for continued hospitalization: Awaiting mental status improvement, ECT treatment Quality Stroke Does the patient have a stroke diagnosis?: No VTE Prior VTE?: No VTE Risk Level:: Medical - moderate - high VTE Device Contraindication: Treatment Not Indicated VTE Drug Contraindication: N/A - Med Ordered
--- NOTE | 2024-12-31 10:04 | MHC.CLN ---
F/U PO INTAKE RECORDED 0% DIET REMAINS REGULAR REVIEWED LABS; TRIGS 135 DISCUSSED WITH PHARMACY RECOMMEND PPN AT 80ML/HR WITH 88G LIPIDS TO PROVIDE 1859 TOTAL KCALS (23KCALS/KG), 82G PROTEIN (.9G/KG), 192G DEXTROSE REPLETE LYTES NEEDED MONITOR PO INTAKE CLOSELY-WILL DECREASE PPN PO IMPROVES
--- NOTE | 2024-12-31 11:49 | MHC.CM.PN ---
EMR reviewed and per MD rounds, pt is not medically cleared for discharge due to awaiting mental status improvement, and receiving ECT treatments.
[2024-12-31] MEDS: Enoxaparin Sodium 40 MG/0.4 ML SYRINGE SUBCUT (21:58)
[2025-01-01] MEDS: Parenteral Nutrition 1,920 ML 80 ML IV ×2 (00:35→22:13)
[2025-01-01 03:32] VITALS: BP 124/95; PULSE 110; RESP 14; TEMP 36.7; O2SAT 97
[2025-01-01 06:47] LABS: Triglycerides 286 mg/dL (<150)
[2025-01-01 07:35] VITALS: BP 142/96; PULSE 100; RESP 16; TEMP 36.1; O2SAT 95
[2025-01-01 09:58] LABS: Albumin Level 4.2 g/dL (3.5-5.0); Anion Gap 13 (12-20); Blood Urea Nitrogen 15 mg/dL (9-16); Calcium 9.8 mg/dL (8.4-10.2); Carbon Dioxide 25 mmol/L (22-29); Chloride 103 mmol/L (96-108); Creatinine Clr Calc Pharmacy 168.7; Estimated Glomerular Filt Rate > 60; Glucose Random 273 mg/dL (60-115); Phosphorus 3.3 mg/dL (2.7-4.5); Sodium 136 mmol/L (135-145)
--- NOTE | 2025-01-01 10:56 | MHC.CLN ---
F/U PO INTAKE RECORDED 100% X1 MEAL DIET REMAINS REGULAR REVIEWED LABS; TRIGS 286 DISCUSSED WITH PHARMACY RECOMMEND PPN AT 80ML/HR TO PROVIDE 979 KCALS, 82G PROTEIN (.9G/KG), 192G DEXTROSE HOLD LIPIDS X 24 HOURS; CHECK TRIGS REPLETE LYTES NEEDED MONITOR PO INTAKE CLOSELY-WILL DECREASE PPN PO IMPROVES
--- NOTE | 2025-01-01 11:16 | HO.PM.IMPN ---
Subjective Subjective Date of Service: 01/01/25 Interval History: Seen and evaluated this morning more alert and interactive open eyes and look around he said yes\no this morning , spoke to the Aid about a Movie no fever reported Review of Systems Review of Systems: Yes Unobtainable due to mental status Physical Exam Vital Signs: Vital Signs: Last Vital Signs Temp 97 F 01/01/25 07:35 Pulse 100 01/01/25 07:35 Resp 16 01/01/25 07:35 BP 142/96 H 01/01/25 07:35 Pulse Ox 95 01/01/25 07:35 O2 Del Method Room Air 01/01/25 07:35 O2 Flow Rate 4 12/31/24 08:15 BMI result Body Mass Index 29.8 Const: Other: Constitutional : alert , not in distress Cardiovascular : no JVP, no lower extremity edema Respiratory : bilateral chest movement, not in resp distress Gastrointestinal: soft, lax, Non tender Skin : Warm, Dry Neurological : Alert & partially responsive verbally, not following commands , moving extremities Objective Data Active Medications Acetaminophen (Acetaminophen Supp 650 Mg Supp.Rect) 650 mg [place] Q6H PRN PRN Reason: Pain, Mild 1-3,fever,headache Last Admin: 12/22/24 01:01 Dose: 650 mg Documented By: MARITZA Enoxaparin Sodium (Enoxaparin Sodium 40 Mg/0.4 Ml Syringe) 40 mg SUBCUT Q24H [facility] Last Admin: 12/31/24 21:58 Dose: 40 mg Documented By: PALMER Nutrition (Parenteral) (Parenteral Nutrition) 1,920 mls @ 80 mls/hr IV .Q24H [facility]; Protocol Stop: 01/01/25 20:59 Last Admin: 01/01/25 00:35 Dose: 80 mls/hr Documented By: PALMER Nutrition (Parenteral) (Parenteral Nutrition) 1,920 mls @ 80 mls/hr IV .Q24H [facility]; Protocol Stop: 01/02/25 20:59 Naloxone HCl (Naloxone Hcl 0.4 Mg/Ml Vial) 0.04 mg IVPUSH Q5M PRN PRN Reason: Excessive sedation or RR < 8 Naloxone HCl (Naloxone Hcl 0.4 Mg/Ml Vial) 0.04 mg IVPUSH Q5M PRN PRN Reason: Excessive sedation or RR < 8 Nicotine (Nicotine 21 Mg Patch.Td24) 21 mg TRANSDERMA DAILY [facility] Last Admin: 12/30/24 08:53 Dose: 21 mg Documented By: VICTOR HUGO Nystatin (Nystatin Powder 15 Gm Bottle) 1 appl TOPICAL BID [facility]; Protocol Last Admin: 01/01/25 10:00 Dose: Not Given Documented By: LULÚ Non-Admin Reason: Patient Refused Ondansetron HCl (Ondansetron Hcl 4 Mg/2 Ml Vial) 4 mg IVPUSH Q8H PRN PRN Reason: Nausea and Vomiting Pharmacy Consult (Consult Rx Parenteral Nutrition Ordering) 1 each MISCELLANE DAILY PRN PRN Reason: Consult order Labs 12/24/24 10:23 01/01/25 08:36 Labs: Laboratory Results - last 24 hr 01/01/25 01/01/25 01/01/25 05:35 06:13 08:36 Hold Purple Top SEE NOTE SEE NOTE Anion Gap 13 Estim Creat Clear Calc 168.7 Estimated GFR > 60 Random Glucose 273 H Calcium 9.8 Phosphorus 3.3 Magnesium 2.0 Albumin 4.2 Triglycerides 286 H Assessment and Plan (1) Toxic metabolic encephalopathy: Status: Acute (2) Catatonia: Status: Acute Plan 34M PMH bipolar 1 [facility] Acute metabolic\Toxic encephalopathy likely related to catatonia improving slowly LP, Negative encephalitis panel, Negative CSF cultures, dcd IV Acyclovir MRI negative for any acute findings EEG negative for any seizure activities Psychiatry following, continue ECT treatment as scheduled Continue ECT by now, three times a week MWF tends to be verbal, eating, and more fluid day of ECT, then becomes more muted and does not eat on non ECT days Continue PPN until he is reliably eating po, now on chopped with thins but only eating on ECT days Acute hypokalemia replaced Sepsis and acute hypoxic respiratory failure secondary to aspiration pneumonia with risk for MRSA given recent hospitalization Sepsis resolved completed 10 days zosyn 12/25/24 Weaned O2 off Bipolar 1 with catatonia versus malignant catatonia see above DVT prophylaxis with Lovenox Full Code reason for continued hospitalization: Awaiting mental status improvement, tolerance of diet, ECT treatment Quality Stroke Does the patient have a stroke diagnosis?: No VTE Prior VTE?: No VTE Risk Level:: Medical - moderate - high VTE Device Contraindication: Treatment Not Indicated VTE Drug Contraindication: N/A - Med Ordered
[2025-01-01 12:00] VITALS: BP 128/92; PULSE 96; RESP 14; TEMP 36.6; O2SAT 95
--- NOTE | 2025-01-01 15:22 | P.CNPS_ITS ---
History of Present Illness Date of Service: 01/01/2025 Chief Complaint: pneumonia, hypoxia, sepsis Reason for Consult: catatonia Sources of Information: patient interviewed, chart reviewed and crisis/core team assessment reviewed HPI Narrative: Interim: Pt seen in room. 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 He continues to have waxy flexibility. Per RN, pt was more talkative yesterday after ECT. He apparently had some oral intake this morning, non after requiring PPN. He is going to bathroom on his own with some assistance. He's had total of 6 ECT- bifrontal. Next ECT on 01/02/2025. Past Psychiatric History: Inpt: [facility] 6 years ago. Past medication trials: olanzapine, ativan 2mg/daily Medical Evaluation Reviewed: Yes [facility] Medical History Bipolar I disorder with catatonia Diagnostics Vital Signs (24Hr): Vital Signs - 24 hr 12/31/24 19:21 12/31/24 23:54 01/01/25 03:32 Temperature 97.6 F 98.1 F 98.1 F Pulse Rate 102 H 100 110 H Respiratory Rate 20 16 14 Blood Pressure 119/78 126/86 124/95 H Pulse Oximetry 93 97 97 Oxygen Delivery Method Room Air Room Air Room Air 01/01/25 07:35 01/01/25 12:00 Temperature 97 F 97.8 F Pulse Rate 100 96 Respiratory Rate 16 14 Blood Pressure 142/96 H 128/92 H Pulse Oximetry 95 95 Oxygen Delivery Method Room Air Room Air BMI result Body Mass Index 29.8 Labs 12/24/24 10:23 01/01/25 08:36 Labs: Laboratory Results - last 48 hr 12/31/24 01/01/25 01/01/25 05:44 05:35 06:13 Hold Purple Top SEE NOTE SEE NOTE Sodium 135 Potassium 4.5 Chloride 102 Carbon Dioxide 23 Anion Gap 15 BUN 16 Creatinine 0.72 Estim Creat Clear Calc 173.4 Estimated GFR > 60 Random Glucose 261 H Calcium 9.9 Phosphorus 3.8 Magnesium 2.0 Albumin 4.1 Triglycerides 135 286 H 01/01/25 08:36 Hold Purple Top SEE NOTE Sodium 136 Potassium 5.0 Chloride 103 Carbon Dioxide 25 Anion Gap 13 BUN 15 Creatinine 0.74 Estim Creat Clear Calc 168.7 Estimated GFR > 60 Random Glucose 273 H Calcium 9.8 Phosphorus 3.3 Magnesium 2.0 Albumin 4.2 Triglycerides Imaging Radiology Impressions: ITS Impressions Fluoroscopy 12/16/24 15:33 IMPRESSION: Successful fluoroscopy-guided L4-5 lumbar puncture performed. CSF fluid collected was sent to lab as per referring physician's orders. Electronically signed by: Liam Olea MD 12/18/2024 12:41 PM EDT RP Brain MRI 12/17/24 16:03 IMPRESSION: No acute stroke/ischemia or acute brain abnormality. Electronically signed by: Lenard Quiroga MD 12/18/2024 07:19 AM EDT RP Mental Status Exam Mental Status Exam Narrative: Appearance: wearing hospital gown, fair hygiene, in NAD behavior: not engaging, staring Psychomotor: retardation noted, waxy flexibility still present Speech: mute TP: unable to assess TC: unable to assess Medications Medications Current Medications Acetaminophen (Acetaminophen Supp 650 Mg Supp.Rect) 650 mg [place] Q6H PRN PRN Reason: Pain, Mild 1-3,fever,headache Last Admin: 12/22/24 01:01 Dose: 650 mg Enoxaparin Sodium (Enoxaparin Sodium 40 Mg/0.4 Ml Syringe) 40 mg SUBCUT Q24H [facility] Last Admin: 12/31/24 21:58 Dose: 40 mg Nutrition (Parenteral) (Parenteral Nutrition) 1,920 mls @ 80 mls/hr IV .Q24H [facility]; Protocol Stop: 01/01/25 20:59 Last Admin: 01/01/25 00:35 Dose: 80 mls/hr Nutrition (Parenteral) (Parenteral Nutrition) 1,920 mls @ 80 mls/hr IV .Q24H [facility]; Protocol Stop: 01/02/25 20:59 Naloxone HCl (Naloxone Hcl 0.4 Mg/Ml Vial) 0.04 mg IVPUSH Q5M PRN PRN Reason: Excessive sedation or RR < 8 Naloxone HCl (Naloxone Hcl 0.4 Mg/Ml Vial) 0.04 mg IVPUSH Q5M PRN PRN Reason: Excessive sedation or RR < 8 Nicotine (Nicotine 21 Mg Patch.Td24) 21 mg TRANSDERMA DAILY [facility] Last Admin: 01/01/25 11:33 Dose: Not Given Nystatin (Nystatin Powder 15 Gm Bottle) 1 appl TOPICAL BID [facility]; Protocol Last Admin: 01/01/25 10:00 Dose: Not Given Ondansetron HCl (Ondansetron Hcl 4 Mg/2 Ml Vial) 4 mg IVPUSH Q8H PRN PRN Reason: Nausea and Vomiting Pharmacy Consult (Consult Rx Parenteral Nutrition Ordering) 1 each MISCELLANE DAILY PRN PRN Reason: Consult order Allergies Allergies Allergy/AdvReac Type Severity Reaction Status Date / Time sertraline [From Zoloft] Allergy Unknown Verified 12/14/24 16:10 Assessment & Plan Assessment & Plan (1) Catatonia: Status: Acute Code(s): F06.1 - Catatonic disorder due to known physiological condition Plan Mr. Ramsey is a 34 year-old male who was transferred to [facility] from [facility] due to progressive increase in s/s of catatonia. He presented with tachypnea, hypertension, hypoxia, did become afebrile, but prior reports of pt presenting as sweating. He also had Leukocytosis, mildly elevated CPK in 400's. Lactic Acid was wnl. No hotn. He was seen by neurology. Had LP which was negative for [employer] infections or other abnormalities. He has been progressively less responsive to benzodiazepine for s/s of catatonia (including mutism, black stare, waxy flexibility). No oral intake, now on PPN. PLAN 4/3 continue to present with waxy flexibility and mutism days when he does not have ECT. -continue ECT - Continue PPN, but encourage oral intake as catatonia improves. - off ativan, probably best as limited therapeutic effect and can interfere with ECT tx. - DVT prophylaxis Total time managing care of this patient today ____ minutes.
[2025-01-01 15:58] VITALS: BP 127/85; PULSE 95; RESP 14; TEMP 36.3; O2SAT 95
--- NOTE | 2025-01-01 18:32 | PC.NURSE ---
Unable to assess patient neurologically, does not respond to questions. VSS, RA sats at 95%. Patient ambulates with walker and 1 assist. Was able to ambulate to the bathroom to move bowel, needed step by step direction. Ate about 25% of breakfast, refused lunch and dinner. Refuses liquids. No report of pain, patient appears pale, diaphoretic. Sitter in place for safety. received from PACU Charge Nurse (Brandie Johnson) 350 T.R. He is due for treatment Tomorrow. He is on the OR schedule for 12 noon. We will call to have him come down for 11. Keep him NPO after midnight please msg will be forwarded to night RN.
[2025-01-01 19:55] VITALS: BP 120/78; PULSE 100; RESP 18; TEMP 37.1; O2SAT 95
[2025-01-01] MEDS: Enoxaparin Sodium 40 MG/0.4 ML SYRINGE SUBCUT (22:16)
[2025-01-01] MEDS: Nystatin Powder 15 GM BOTTLE 1 APPL TOPICAL (22:32)
[2025-01-01 23:19] VITALS: BP 119/79; PULSE 96; RESP 18; TEMP 37.1; O2SAT 94
[2025-01-02] VITALS (14 sets, daily range): BP systolic 106–173; BP diastolic 59–113; PULSE 84–110; RESP 16–21; TEMP 36.3–37; O2SAT 93–96
[2025-01-02 06:26] LABS: Triglycerides 205 mg/dL (<150)
[2025-01-02 06:33] LABS: Anion Gap 14 (12-20); Blood Urea Nitrogen 18 mg/dL (9-16); Calcium 9.8 mg/dL (8.4-10.2); Carbon Dioxide 24 mmol/L (22-29); Chloride 103 mmol/L (96-108); Creatinine Clr Calc Pharmacy 162.2; Estimated Glomerular Filt Rate > 60; Glucose Random 238 mg/dL (60-115); Magnesium 1.9 mg/dL (1.6-2.6); Phosphorus 3.8 mg/dL (2.7-4.5); Potassium 4.4 mmol/L (3.3-5.1); Sodium 137 mmol/L (135-145)
--- NOTE | 2025-01-02 09:56 | MHC.SHP ---
Pre-Procedural Eval Section A - 24 Hr Update-Section A only Date of Service: 01/02/25 Changes since office visit: No Cold of Flu in the past 2 weeks, No New Medical Problems, No Changes in Medication and No Patient answered all questions The patient has been examined within 24 hours of the surgical procedure. The History & Physical has been completed within 30 days and I have reviewed it.: Yes Section B - Complete if H&P > 30 days Chief Complaint: pneumonia, hypoxia, sepsis Allergies: Allergies Allergy/AdvReac Type Severity Reaction Status Date / Time sertraline [From Zoloft] Allergy Unknown Verified 12/14/24 16:10 Plan I have reviewed the history and physical and performed a pertinent physical examination on my patient. No changes have occurred unless specified. Time Spent With Patient Time: Total time managing care of this patient today ____ minutes.
--- NOTE | 2025-01-02 09:57 | HO.ECTPROC ---
ECT Procedure Note Diagnosis/Treatment Date of Service: 01/04/25 Diagnosis: Catatonia Previous ECT Date: 12/31/24 Current Treatment Number: 7 Treatment: Series Interval Clinical Notes: pt seen remains mostly non verbal withdrawn intense stare ect completed BT Time: Total time managing care of this patient today ____ minutes. ECT Settings Device: THYMATRON DGx Electrode Placement: Bitemporal Program/Pulse Width: 0.50 Energy Percent: 100 Seizure Duration By EEG (in seconds): 50 Medications Administration General Anesthetic: Etomidate (14) Muscle Relaxant: Succinylcholine (140) Ancillary Medications Cardiovascular Medications: Labetolol (10 pre) Miscillaneous Medications: Other ([id number] ivp) Airway Management Airway Management: Bag Mask Ventilation Treatment Recommendations No Changes Recommended: No change Notes: monitor response to tx has not generally responded to lorazepam for catatonia hx of reported bipolar dx Pt Tolerated Procedure w/o Issue: Yes
--- NOTE | 2025-01-02 10:44 | MHC.CLN ---
F/U PO INTAKE RECORDED 25% X1 MEAL NSG REPORTED PT ATE 25% OF BREAKFAST AND REFUSED LUNCH AND DINNER ALONG WITH ALL LIQUIDS YESTERDAY DIET REMAINS REGULAR REVIEWED LABS; TRIGS 205 DISCUSSED WITH PHARMACY RECOMMEND PPN AT MAX GOAL RATE 80ML/HR WITH 88G LIPIDS TO PROVIDE 1859 TOTAL KCALS, 82G PROTEIN (.9G/KG), 192G DEXTROSE REPLETE LYTES NEEDED MONITOR PO INTAKE CLOSELY-WILL DECREASE PPN PO IMPROVES RD CAN BE REACHED VIA TIGER CONNECT DURING OFF HOURS IF NEEDED CONTINUE PPN AT MAX GOAL RATE OVER WEEKEND NOTED ABOVE
--- NOTE | 2025-01-02 10:49 | PC.NURSE ---
Addendum entered by Sarah Lanier RN 01/02/25 12:59: pt returned from ECT at 1110. pt axox self, place, year. unsure of situation. verbal and making needs known, able told a conversation. no reports of pain at this time. pt was sitting up in bed eating breakfast/lunch independently. Original Note: pt off unit at 0925 for ECT. PPN running per NOV
[2025-01-02] MEDS: LORazepam 2 MG/ML VIAL 1 MG IVPUSH (10:57)
--- NOTE | 2025-01-02 10:59 | P.PNIM_ITS ---
Subjective Subjective Date of Service: 01/02/25 Interval History: Seen and evaluated this morning more alert and interactive open eyes and look around he said yes\no this morning , spoke to the Aid about a Movie no fever reported Physical Exam 2 Vital Signs: Vital Signs: Last Vital Signs Temp 97.4 F 01/02/25 10:50 Pulse 95 01/02/25 10:50 Resp 16 01/02/25 10:50 BP 120/79 01/02/25 10:50 Pulse Ox 95 01/02/25 10:50 O2 Del Method Room Air 01/02/25 10:50 O2 Flow Rate 4 12/31/24 08:15 BMI result Body Mass Index 29.8 Const: Other: Constitutional : alert , not in distress Cardiovascular : no JVP, no lower extremity edema Respiratory : bilateral chest movement, not in resp distress Gastrointestinal: soft, lax, Non tender Skin : Warm, Dry Neurological : Alert & partially responsive verbally, not following commands , moving extremities Objective Data Active Medications Acetaminophen (Acetaminophen Supp 650 Mg Supp.Rect) 650 mg [place] Q6H PRN PRN Reason: Pain, Mild 1-3,fever,headache Last Admin: 12/22/24 01:01 Dose: 650 mg Documented By: MARITZA Enoxaparin Sodium (Enoxaparin Sodium 40 Mg/0.4 Ml Syringe) 40 mg SUBCUT Q24H [facility] Last Admin: 01/01/25 22:16 Dose: 40 mg Documented By: MARIANNE Nutrition (Parenteral) (Parenteral Nutrition) 1,920 mls @ 80 mls/hr IV .Q24H [facility]; Protocol Stop: 01/02/25 20:59 Last Admin: 01/01/25 22:13 Dose: 80 mls/hr Documented By: MARIANNE Nutrition (Parenteral) (Parenteral Nutrition) 1,920 mls @ 80 mls/hr IV .Q24H [facility]; Protocol Stop: 01/03/25 20:59 Naloxone HCl (Naloxone Hcl 0.4 Mg/Ml Vial) 0.04 mg IVPUSH Q5M PRN PRN Reason: Excessive sedation or RR < 8 Naloxone HCl (Naloxone Hcl 0.4 Mg/Ml Vial) 0.04 mg IVPUSH Q5M PRN PRN Reason: Excessive sedation or RR < 8 Nicotine (Nicotine 21 Mg Patch.Td24) 21 mg TRANSDERMA DAILY [facility] Nystatin (Nystatin Powder 15 Gm Bottle) 1 appl TOPICAL BID [facility]; Protocol Last Admin: 01/01/25 22:32 Dose: 1 appl Documented By: MARIANNE Ondansetron HCl (Ondansetron Hcl 4 Mg/2 Ml Vial) 4 mg IVPUSH Q8H PRN PRN Reason: Nausea and Vomiting Pharmacy Consult (Consult Rx Parenteral Nutrition Ordering) 1 each MISCELLANE DAILY PRN PRN Reason: Consult order Labs 12/24/24 10:23 01/02/25 05:56 Labs: Laboratory Results - last 24 hr 01/02/25 01/02/25 01/02/25 05:56 05:56 05:56 Anion Gap 14 Cancelled Estim Creat Clear Calc 162.2 Cancelled Estimated GFR > 60 Random Glucose Calcium Phosphorus Magnesium Albumin Triglycerides 01/02/25 01/02/25 01/02/25 05:56 05:56 05:56 Anion Gap Estim Creat Clear Calc Estimated GFR Cancelled Random Glucose 238 H Cancelled Calcium 9.8 Cancelled Phosphorus 3.8 Magnesium 1.9 Albumin 4.0 Triglycerides 205 H Assessment and Plan (1) Toxic metabolic encephalopathy: Status: Acute (2) Catatonia: Status: Acute Plan 34M PMH bipolar 1 who [facility] and acute hypoxia Acute metabolic\Toxic encephalopathy likely related to catatonia improving slowly LP, Negative encephalitis panel, Negative CSF cultures, dcd IV Acyclovir MRI negative for any acute findings EEG negative for any seizure activities Psychiatry following, continue ECT treatment as scheduled Continue ECT by now, three times a week MWF tends to be verbal, eating, and more fluid day of ECT, then becomes more muted and does not eat on non ECT days Continue PPN until he is reliably eating po, now on chopped with thins but only eating partially on ECT days Acute hypokalemia replaced Sepsis and acute hypoxic respiratory failure secondary to aspiration pneumonia with risk for MRSA given recent hospitalization Sepsis resolved completed 10 days zosyn 12/25/24 Weaned O2 off Bipolar 1 with catatonia versus malignant catatonia see above DVT prophylaxis with Lovenox Full Code reason for continued hospitalization: Awaiting mental status improvement, tolerance of diet, ECT treatment Quality Stroke Does the patient have a stroke diagnosis?: No VTE Prior VTE?: No VTE Risk Level:: Medical - moderate - high VTE Device Contraindication: Treatment Not Indicated VTE Drug Contraindication: N/A - Med Ordered
[2025-01-02] MEDS: Nicotine 21 MG PATCH.TD24 TRANSDERMA (11:19)
[2025-01-02] MEDS: Nystatin Powder 15 GM BOTTLE 1 APPL TOPICAL ×2 (11:20→21:28)
[2025-01-02] MEDS: Acetaminophen 325 MG TABLET 650 MG PO (16:35)
[2025-01-02] MEDS: Parenteral Nutrition 1,920 ML 80 ML IV (21:28)
[2025-01-02] MEDS: Enoxaparin Sodium 40 MG/0.4 ML SYRINGE SUBCUT (23:03)
[2025-01-03 03:42] VITALS: BP 119/77; PULSE 96; RESP 18; TEMP 36.6; O2SAT 96
[2025-01-03 07:41] VITALS: BP 121/73; PULSE 95; RESP 12; TEMP 36.8; O2SAT 97
[2025-01-03 07:42] LABS: MANUAL DIFF FLAG NO
[2025-01-03 07:56] LABS: Basophils Percent Auto 0.4 % (0-2); Eosinophils Absolute Auto 0.2 X10*3/uL (0.0-0.4); Hematocrit 41.9 % (42.0-52.0); Hemoglobin 15.2 g/dl (14.0-18.0); Imm Gran Abs Auto 0.04 X10*3/uL (0.00-0.03); Imm Gran Pct Auto 0.4 % (0.0-0.4); Lymphocytes Absolute Auto 3.4 X10*3/uL (1.2-4.9); Lymphocytes Percent Auto 34.4 % (20-40); Mean Corpuscular HGB Conc 36.3 g/dl (31.0-36.0); Mean Corpuscular Hemoglobin 32.8 pg (27.0-33.0); Mean Corpuscular Volume 90.3 fL (80.0-98.0); Mean Platelet Volume 11.3 fL (9.4-12.4); Monocytes Absolute Auto 0.6 X10*3/uL (0.1-1.2); Monocytes Percent Auto 6.6 % (2-11); Neutrophils Absolute Auto 5.5 x10*3/uL (2.0-8.3); Neutrophils Percent Auto 56.2 % (45-73); Platelet Count 278 X10*3/uL (160-400); Red Blood Count 4.64 X10*6/uL (4.60-5.80); Red Cell Distribution Width 12.6 % (11.0-16.0); White Blood Count 9.7 X10*3/uL (4.8-10.8)
[2025-01-03 08:09] LABS: Albumin Level 3.8 g/dL (3.5-5.0); Anion Gap 14 (12-20); Blood Urea Nitrogen 13 mg/dL (9-16); Calcium 9.2 mg/dL (8.4-10.2); Carbon Dioxide 25 mmol/L (22-29); Chloride 103 mmol/L (96-108); Creatinine Clr Calc Pharmacy 164.3; Estimated Glomerular Filt Rate > 60; Glucose Random 262 mg/dL (60-115); Magnesium 1.9 mg/dL (1.6-2.6); Phosphorus 3.2 mg/dL (2.7-4.5); Potassium 4.2 mmol/L (3.3-5.1); Sodium 138 mmol/L (135-145)
[2025-01-03] MEDS: Nystatin Powder 15 GM BOTTLE 1 APPL TOPICAL ×2 (08:29→21:07)
[2025-01-03] MEDS: Nicotine 21 MG PATCH.TD24 TRANSDERMA (08:29)
--- NOTE | 2025-01-03 10:48 | P.PNIM_ITS ---
Subjective Subjective Date of Service: 01/03/25 Interval History: Seen and evaluated this morning more alert and interactive watching TV eating more no fever reported Review of Systems Review of Systems: Yes all other systems are reviewed and are negative Physical Exam 2 Vital Signs: Vital Signs: Last Vital Signs Temp 98.3 F 01/03/25 07:41 Pulse 95 01/03/25 07:41 Resp 12 01/03/25 07:41 BP 121/73 01/03/25 07:41 Pulse Ox 97 01/03/25 07:41 O2 Del Method Room Air 01/03/25 07:41 O2 Flow Rate 4 12/31/24 08:15 BMI result Body Mass Index 29.8 Const: Other: Constitutional : alert , not in distress Cardiovascular : no JVP, no lower extremity edema Respiratory : bilateral chest movement, not in resp distress Gastrointestinal: soft, lax, Non tender Skin : Warm, Dry Neurological : Alert to self & responsive verbally, following commands , moving extremities Objective Data Active Medications Acetaminophen (Acetaminophen Supp 650 Mg Supp.Rect) 650 mg [place] Q6H PRN PRN Reason: Pain, Mild 1-3,fever,headache Acetaminophen (Acetaminophen 325 Mg Tablet) 650 mg PO Q4H PRN PRN Reason: Pain, Mild 1-3,fever,headache Last Admin: 01/02/25 16:35 Dose: 650 mg Documented By: MEDINA Enoxaparin Sodium (Enoxaparin Sodium 40 Mg/0.4 Ml Syringe) 40 mg SUBCUT Q24H [facility] Last Admin: 01/02/25 23:03 Dose: 40 mg Documented By: MARIANNE Nutrition (Parenteral) (Parenteral Nutrition) 1,920 mls @ 80 mls/hr IV .Q24H [facility]; Protocol Stop: 01/03/25 20:59 Last Admin: 01/02/25 21:28 Dose: 80 mls/hr Documented By: CASTILM Nutrition (Parenteral) (Parenteral Nutrition) 1,920 mls @ 80 mls/hr IV .Q24H [facility]; Protocol Stop: 01/04/25 20:59 Naloxone HCl (Naloxone Hcl 0.4 Mg/Ml Vial) 0.04 mg IVPUSH Q5M PRN PRN Reason: Excessive sedation or RR < 8 Naloxone HCl (Naloxone Hcl 0.4 Mg/Ml Vial) 0.04 mg IVPUSH Q5M PRN PRN Reason: Excessive sedation or RR < 8 Nicotine (Nicotine 21 Mg Patch.Td24) 21 mg TRANSDERMA DAILY [facility] Last Admin: 01/03/25 08:29 Dose: 21 mg Documented By: LARISA Nystatin (Nystatin Powder 15 Gm Bottle) 1 appl TOPICAL BID [facility]; Protocol Last Admin: 01/03/25 08:29 Dose: 1 appl Documented By: LARISA Ondansetron HCl (Ondansetron Hcl 4 Mg/2 Ml Vial) 4 mg IVPUSH Q8H PRN PRN Reason: Nausea and Vomiting Pharmacy Consult (Consult Rx Parenteral Nutrition Ordering) 1 each MISCELLANE DAILY PRN PRN Reason: Consult order Labs 01/03/25 06:32 01/03/25 06:32 Labs: Laboratory Results - last 24 hr 01/03/25 06:32 MCV 90.3 MCH 32.8 MCHC 36.3 H RDW 12.6 Plt Count 278 MPV 11.3 Immature Gran % (Auto) 0.4 Neut % (Auto) 56.2 Lymph % (Auto) 34.4 [place] % (Auto) 6.6 Eos % (Auto) 2.0 Baso % (Auto) 0.4 Lymph # (Auto) 3.4 [place] # (Auto) 0.6 Eos # (Auto) 0.2 Baso # (Auto) 0.0 Abs Immat Gran (auto) 0.04 H Absolute Neuts (auto) 5.5 Absolute Nucleated RBC 0.000 Nucleated RBC % (auto) 0.0 Anion Gap 14 Estim Creat Clear Calc 164.3 Estimated GFR > 60 Random Glucose 262 H Calcium 9.2 D Phosphorus 3.2 Magnesium 1.9 Albumin 3.8 Assessment and Plan (1) Toxic metabolic encephalopathy: Status: Acute (2) Catatonia: Status: Acute Plan 34M PMH bipolar 1 who was sent for [facility] for catatonia and acute hypoxia Acute metabolic\Toxic encephalopathy likely related to catatonia improving slowly LP, Negative encephalitis panel, Negative CSF cultures, dcd IV Acyclovir MRI negative for any acute findings EEG negative for any seizure activities Psychiatry following, continue ECT treatment as scheduled Continue ECT by now, three times a week MWF tends to be verbal, eating, and more fluid day of ECT, then becomes more muted and does not eat on non ECT days Continue PPN until he is reliably eating po, now on chopped with thins but only eating partially on ECT days Acute hypokalemia replaced Sepsis and acute hypoxic respiratory failure secondary to aspiration pneumonia with risk for MRSA given recent hospitalization Sepsis resolved completed 10 days zosyn 12/25/24 Weaned O2 off Bipolar 1 with catatonia versus malignant catatonia see above DVT prophylaxis with Lovenox Full Code reason for continued hospitalization: Awaiting mental status improvement, tolerance of diet, ECT treatment Quality Stroke Does the patient have a stroke diagnosis?: No VTE Prior VTE?: No VTE Risk Level:: Medical - moderate - high VTE Device Contraindication: Treatment Not Indicated VTE Drug Contraindication: N/A - Med Ordered
[2025-01-03 12:00] VITALS: BP 136/92; PULSE 88; RESP 16; TEMP 36.4; O2SAT 96
[2025-01-03 15:20] VITALS: BP 133/80; PULSE 87; RESP 16; TEMP 37; O2SAT 96
[2025-01-03 20:00] VITALS: BP 136/89; PULSE 106; RESP 18; TEMP 36.4; O2SAT 96
[2025-01-03] MEDS: Parenteral Nutrition 1,920 ML 80 ML IV (21:07)
[2025-01-03] MEDS: Enoxaparin Sodium 40 MG/0.4 ML SYRINGE SUBCUT (23:12)
[2025-01-03 23:17] VITALS: BP 126/75; PULSE 99; RESP 18; TEMP 36.6; O2SAT 95
[2025-01-04 03:40] VITALS: BP 142/84; PULSE 90; RESP 18; TEMP 36.4; O2SAT 97
[2025-01-04 06:36] LABS: Albumin Level 4.1 g/dL (3.5-5.0); Anion Gap 15 (12-20); Blood Urea Nitrogen 15 mg/dL (9-16); Calcium 9.7 mg/dL (8.4-10.2); Carbon Dioxide 25 mmol/L (22-29); Chloride 102 mmol/L (96-108); Creatinine Clr Calc Pharmacy 154.2; Estimated Glomerular Filt Rate > 60; Glucose Random 268 mg/dL (60-115); Phosphorus 3.9 mg/dL (2.7-4.5); Potassium 4.2 mmol/L (3.3-5.1); Sodium 138 mmol/L (135-145)
--- NOTE | 2025-01-04 07:26 | HO.PM.IMPN ---
Subjective Subjective Date of Service: 01/04/25 Interval History: Seen and evaluated this morning laying in bed , more alert today at bedside did not eat much yesterday no fever reported Review of Systems Review of Systems: Yes all other systems are reviewed and are negative Physical Exam Vital Signs: Vital Signs: Last Vital Signs Temp 97.6 F 01/04/25 03:40 Pulse 90 01/04/25 03:40 Resp 18 01/04/25 03:40 BP 142/84 H 01/04/25 03:40 Pulse Ox 97 01/04/25 03:40 O2 Del Method Room Air 01/04/25 03:40 O2 Flow Rate 4 12/31/24 08:15 BMI result Body Mass Index 29.8 Const: Other: Constitutional : alert , not in distress Cardiovascular : no JVP, no lower extremity edema Respiratory : bilateral chest movement, not in resp distress Gastrointestinal: soft, lax, Non tender Skin : Warm, Dry Neurological : Alert to self & responsive verbally, following commands , moving extremities Objective Data Active Medications Acetaminophen (Acetaminophen Supp 650 Mg Supp.Rect) 650 mg NV Q6H PRN PRN Reason: Pain, Mild 1-3,fever,headache Acetaminophen (Acetaminophen 325 Mg Tablet) 650 mg PO Q4H PRN PRN Reason: Pain, Mild 1-3,fever,headache Last Admin: 01/02/25 16:35 Dose: 650 mg Documented By: MEDINA Enoxaparin Sodium (Enoxaparin Sodium 40 Mg/0.4 Ml Syringe) 40 mg SUBCUT Q24H [facility] Last Admin: 01/03/25 23:12 Dose: 40 mg Documented By: MARIANNE Nutrition (Parenteral) (Parenteral Nutrition) 1,920 mls @ 80 mls/hr IV .Q24H [facility]; Protocol Stop: 01/04/25 20:59 Last Admin: 01/03/25 21:07 Dose: 80 mls/hr Documented By: MARIANNE Naloxone HCl (Naloxone Hcl 0.4 Mg/Ml Vial) 0.04 mg IVPUSH Q5M PRN PRN Reason: Excessive sedation or RR < 8 Naloxone HCl (Naloxone Hcl 0.4 Mg/Ml Vial) 0.04 mg IVPUSH Q5M PRN PRN Reason: Excessive sedation or RR < 8 Nicotine (Nicotine 21 Mg Patch.Td24) 21 mg TRANSDERMA DAILY [facility] Last Admin: 01/03/25 08:29 Dose: 21 mg Documented By: LARISA Nystatin (Nystatin Powder 15 Gm Bottle) 1 appl TOPICAL BID [facility]; Protocol Last Admin: 01/03/25 21:07 Dose: 1 appl Documented By: MARIANNE Ondansetron HCl (Ondansetron Hcl 4 Mg/2 Ml Vial) 4 mg IVPUSH Q8H PRN PRN Reason: Nausea and Vomiting Pharmacy Consult (Consult Rx Parenteral Nutrition Ordering) 1 each MISCELLANE DAILY PRN PRN Reason: Consult order Labs 01/03/25 06:32 01/04/25 05:39 Labs: Laboratory Results - last 24 hr 01/03/25 01/04/25 01/04/25 06:32 05:39 06:35 MCV 90.3 MCH 32.8 MCHC 36.3 H RDW 12.6 Plt Count 278 MPV 11.3 Immature Gran % (Auto) 0.4 Neut % (Auto) 56.2 Lymph % (Auto) 34.4 [place] % (Auto) 6.6 Eos % (Auto) 2.0 Baso % (Auto) 0.4 Lymph # (Auto) 3.4 [place] # (Auto) 0.6 Eos # (Auto) 0.2 Baso # (Auto) 0.0 Abs Immat Gran (auto) 0.04 H Absolute Neuts (auto) 5.5 Absolute Nucleated RBC 0.000 Nucleated RBC % (auto) 0.0 Hold Purple Top SEE NOTE Anion Gap 14 15 Estim Creat Clear Calc 164.3 154.2 Estimated GFR > 60 > 60 Random Glucose 262 H 268 H Calcium 9.2 D 9.7 Phosphorus 3.2 3.9 Magnesium 1.9 2.0 Albumin 3.8 4.1 Assessment and Plan (1) Catatonia: Status: Acute Plan 34M PMH bipolar 1 who was sent for [facility] for catatonia and acute hypoxia Acute metabolic\Toxic encephalopathy likely related to catatonia improving slowly Psychiatry following, continue ECT treatment as scheduled MWF tends to be verbal, eating, and more fluid day of ECT, then becomes more muted and does not eat much on non ECT days Continue PPN until he is reliably eating po, only eating partially on ECT days Acute hypokalemia replaced Sepsis and acute hypoxic respiratory failure secondary to aspiration pneumonia with risk for MRSA given recent hospitalization Sepsis resolved completed 10 days zosyn 12/25/24 Weaned O2 off Bipolar 1 with catatonia versus malignant catatonia see above DVT prophylaxis with Lovenox Full Code The patient has been medically clear for 5 days after finishing pneumonia treatment and placed on O2. will ask care team to evaluate him and place him back on psych floor on TPN as his po intake improves on days of ECT. overall he made a progress and as long as the plan is ECT will discuss with psychiatry team and involve ethical comittee for his current situation of TPN and ECT. reason for continued hospitalization: Awaiting mental status improvement, tolerance of diet, ECT treatment Quality Stroke Does the patient have a stroke diagnosis?: No VTE Prior VTE?: No VTE Risk Level:: Medical - moderate - high VTE Device Contraindication: Treatment Not Indicated VTE Drug Contraindication: N/A - Med Ordered
[2025-01-04 07:47] VITALS: BP 118/70; PULSE 100; RESP 18; TEMP 36.7; O2SAT 97
--- NOTE | 2025-01-04 10:36 | MHC.CM.PN ---
Patient has been seen by the [facility]. He qualifies for [facility]OC. [facility] bed search in progress. [facility] transportation will be provided by [facility].
[2025-01-04 12:00] VITALS: BP 126/84; PULSE 94; RESP 14; TEMP 36.3; O2SAT 96
--- NOTE | 2025-01-04 12:52 | MHC.CARE ---
Pt meets the criteria for IPLOC. Section 12a in chart. Provider in agreement with disposition.
[2025-01-04 15:13] VITALS: BP 118/76; PULSE 90; RESP 14; TEMP 36.3; O2SAT 96
[2025-01-04 19:29] VITALS: BP 122/73; PULSE 73; RESP 18; TEMP 36.2; O2SAT 96
[2025-01-04] MEDS: Parenteral Nutrition 1,920 ML 80 ML IV (21:33)
[2025-01-04] MEDS: Enoxaparin Sodium 40 MG/0.4 ML SYRINGE SUBCUT (22:49)
[2025-01-04 23:17] VITALS: BP 120/68; PULSE 76; RESP 18; TEMP 36.3; O2SAT 96
[2025-01-05] VITALS (10 sets, daily range): BP systolic 115–133; BP diastolic 69–96; PULSE 87–107; RESP 12–18; TEMP 36.2–36.9; O2SAT 95–98
[2025-01-05 07:27] LABS: Albumin Level 4.2 g/dL (3.5-5.0); Anion Gap 14 (12-20); Blood Urea Nitrogen 22 mg/dL (9-16); Calcium 9.8 mg/dL (8.4-10.2); Carbon Dioxide 24 mmol/L (22-29); Chloride 103 mmol/L (96-108); Creatinine Clr Calc Pharmacy 146.9; Estimated Glomerular Filt Rate > 60; Glucose Random 223 mg/dL (60-115); Magnesium 2.1 mg/dL (1.6-2.6); Phosphorus 4.1 mg/dL (2.7-4.5); Potassium 4.3 mmol/L (3.3-5.1); Sodium 137 mmol/L (135-145)
--- NOTE | 2025-01-05 07:50 | MHC.SHP ---
Pre-Procedural Eval Section A - 24 Hr Update-Section A only Date of Service: 01/05/25 The patient is an INPATIENT: Yes Changes since office visit: No Cold of Flu in the past 2 weeks, No New Medical Problems, No Changes in Medication and No Patient answered all questions The patient has been examined within 24 hours of the surgical procedure. The History & Physical has been completed within 30 days and I have reviewed it.: Yes Section B - Complete if H&P > 30 days Chief Complaint: pneumonia, hypoxia, sepsis Allergies: Allergies Allergy/AdvReac Type Severity Reaction Status Date / Time sertraline [From Zoloft] Allergy Unknown Verified 12/14/24 16:10 Plan I have reviewed the history and physical and performed a pertinent physical examination on my patient. No changes have occurred unless specified. Time Spent With Patient Time: Total time managing care of this patient today ____ minutes.
--- NOTE | 2025-01-05 08:32 | HO.ECTPROC ---
ECT Procedure Note Diagnosis/Treatment Date of Service: 01/05/25 Diagnosis: Catatonia Previous ECT Date: 01/02/25 Current Treatment Number: 8 Treatment: Series Interval Clinical Notes: pt seen remains mostly non verbal withdrawn intense stare ect completed BT had ballesteros affect speaking after last tx ? restart lorazepam although not effective previously ect completed bt with 10 labetolol tolerated well 1 mg ivp lorazepam post Time: Total time managing care of this patient today 30____ minutes. ECT Settings Device: THYMATRON DGx Electrode Placement: Bitemporal Program/Pulse Width: 0.50 Energy Percent: 100 Seizure Duration By EEG (in seconds): 61 Medications Administration General Anesthetic: Etomidate (14) Muscle Relaxant: Succinylcholine (140) Ancillary Medications Cardiovascular Medications: Labetolol (10 pre) Miscillaneous Medications: Other ([id number] ivp) Airway Management Airway Management: Bag Mask Ventilation Treatment Recommendations No Changes Recommended: No change Notes: monitor response to tx has not generally responded to lorazepam for catatonia hx of reported bipolar dx had temporary reponse after ect 7 last tx Pt Tolerated Procedure w/o Issue: Yes
--- NOTE | 2025-01-05 08:38 | HO.ANESPROP2 ---
HPI - Anesthesia Eval Consult details Narrative: 34 yo male patient for ECT PMFSH Active Problems Active Problems: All Active Problems Toxic metabolic encephalopathy (Acute) Pneumonia (Acute) Acute hypoxemic respiratory failure (Acute) Sepsis (Acute) Pneumonia (Acute) Bipolar I disorder with catatonia (Acute) Catatonia (Acute) Altered mental status (Acute) Past Medical History Medical History Bipolar I disorder with catatonia Family History Family history of problems with anesthesia: No Surgical History History of Problems with Anesthesia: No Social History Social History Household Members: Spouse Housing: House Do you presently have visiting nurse or other home services: No Unable to assess alcohol history related to: Unable to respond and Refusing to respond Comment: sitter at bedside Patient Tobacco Use Status: Current everyday Tobacco user service: No Meds Allergies Allergy/AdvReac Type Severity Reaction Status Date / Time sertraline [From Zoloft] Allergy Unknown Verified 12/14/24 16:10 Active Medications: Current Medications Acetaminophen (Acetaminophen Supp 650 Mg Supp.Rect) 650 mg [place] Q6H PRN PRN Reason: Pain, Mild 1-3,fever,headache Acetaminophen (Acetaminophen 325 Mg Tablet) 650 mg PO Q4H PRN PRN Reason: Pain, Mild 1-3,fever,headache Last Admin: 01/02/25 16:35 Dose: 650 mg Enoxaparin Sodium (Enoxaparin Sodium 40 Mg/0.4 Ml Syringe) 40 mg SUBCUT Q24H VLADIMIR Last Admin: 01/04/25 22:49 Dose: 40 mg Nutrition (Parenteral) (Parenteral Nutrition) 1,920 mls @ 80 mls/hr IV .Q24H VLADIMIR; Protocol Last Admin: 01/04/25 21:33 Dose: 80 mls/hr Lactated Ringer's (Lr) 1,000 mls @ 100 mls/hr IVCONT .Q10H VLADIMIR Lactated Ringer's (Lr) 1,000 mls @ 50 mls/hr IVCONT .Q20H VLADIMIR Naloxone HCl (Naloxone Hcl 0.4 Mg/Ml Vial) 0.04 mg IVPUSH Q5M PRN PRN Reason: Excessive sedation or RR < 8 Naloxone HCl (Naloxone Hcl 0.4 Mg/Ml Vial) 0.04 mg IVPUSH Q5M PRN PRN Reason: Excessive sedation or RR < 8 Nicotine (Nicotine 21 Mg Patch.Td24) 21 mg TRANSDERMA DAILY [facility] Last Admin: 01/04/25 10:34 Dose: Not Given Nystatin (Nystatin Powder 15 Gm Bottle) 1 appl TOPICAL BID [facility]; Protocol Last Admin: 01/04/25 21:27 Dose: Not Given Ondansetron HCl (Ondansetron Hcl 4 Mg/2 Ml Vial) 4 mg IVPUSH Q8H PRN PRN Reason: Nausea and Vomiting Pharmacy Consult (Consult Rx Parenteral Nutrition Ordering) 1 each MISCELLANE DAILY PRN PRN Reason: Consult order Home Medications ?Medication ?Instructions ?Recorded ?Confirmed ?Last Taken ?Type ibuprofen 600 mg tablet 600 mg PO TID PRN Pain 12/15/24 12/15/24 Unknown History lamotrigine 25 mg tablet 50 mg PO BID 12/15/24 12/15/24 Unknown History lorazepam 0.5 mg tablet 0.5 mg PO BID 12/15/24 12/15/24 Unknown History olanzapine 15 mg tablet 30 mg PO BEDTIME 12/15/24 12/15/24 Unknown History propranolol 20 mg tablet 20 mg PO TID 12/15/24 12/15/24 Unknown History quetiapine 200 mg tablet 200 mg PO TID 12/15/24 12/15/24 Unknown History Exam Height,Weight and Vital Signs: Height 6 ft Weight 99.79 kg Last Vital Signs Temp 97.6 F 01/05/25 07:59 Pulse 90 01/05/25 07:59 Resp 18 01/05/25 07:59 BP 126/74 01/05/25 07:59 Pulse Ox 96 01/05/25 07:59 O2 Del Method Room Air 01/05/25 07:59 O2 Flow Rate 4 12/31/24 08:15 Pertinent Lab Results Pertinent Lab Results: Laboratory Tests 12/14/24 12/14/24 12/14/24 17:09 17:10 17:11 WBC RBC Hgb Hct MCV MCH MCHC RDW Plt Count MPV Immature Gran % (Auto) Neut % (Auto) Lymph % (Auto) [place] % (Auto) Eos % (Auto) Baso % (Auto) Lymph # (Auto) [place] # (Auto) Eos # (Auto) Baso # (Auto) Abs Immat Gran (auto) Absolute Neuts (auto) Absolute Nucleated RBC Nucleated RBC % (auto) Hold Purple Top PT 13.0 H INR 1.1 D-Dimer High Sensitivty < 150 VBG pH VBG pCO2 VBG pO2 VBG HCO3 VBG O2 Saturation VBG Base Excess Sodium Potassium Chloride Carbon Dioxide Anion Gap BUN Creatinine Estim Creat Clear Calc Estimated GFR POC Glucose Random Glucose Osmolality 303 Lactic Acid Calcium Phosphorus Magnesium Total Bilirubin Direct Bilirubin AST ALT Alkaline Phosphatase Ammonia Total Creatine Kinase Troponin I High Sens 28.6 C-Reactive Protein B-Natriuretic Peptide Total Protein Albumin Triglycerides Lipase TSH Hold Green Top See Note Urine Color Urine Appearance Urine pH Ur Specific [place] Urine Protein Urine Glucose (UA) Urine Ketones Urine Blood Urine Nitrite Ur Leukocyte Esterase CSF Tube Number CSF Volume CSF Appearance CSF Color CSF WBC CSF RBC CSF Neutrophils CSF Lymphocytes CSF Monocytes % CSF Appearance (b) CSF Total Protein CSF C.neoform/gat PCR CSF CMV DNA (PCR) CSF Enterovirus (PCR) CSF E. coli K1 (PCR) CSF H. influenzae (PCR) CSF HSV I (PCR) CSF HSV II (PCR) CSF HHV 6 (PCR) CSF L.monocytogenes PCR CSF N. meningitidis PCR CSF Parechovirus (PCR) CSF S. agalactiae (PCR) CSF S. pneumoniae (PCR) CSF VZV (PCR) Nasal Screen MRSA (PCR) Nasal S. aureus Screen Nasal MRSA/S.aureus Interp Salicylates < 5.0 L Urine Opiates Screen Ur Buprenorphine Scrn Ur Oxycodone Screen Urine Methadone Screen Urine Fentanyl Screen Acetaminophen < 3 Ur Barbiturates Screen Lamotrigine 1.8 L Ur Phencyclidine Scrn Ur Amphetamines Screen U Benzodiazepines Scrn Urine Cocaine Screen U Marijuana (THC) Screen Ethyl Alcohol Influenza Type A (PCR) NEGATIVE Influenza Type B (PCR) NEGATIVE RSV RNA Qual (PCR) NEGATIVE SARS-CoV-2 RNA (RT-PCR) NEGATIVE 12/14/24 12/14/24 12/14/24 17:12 17:16 17:19 WBC 16.9 H RBC 5.52 Hgb 18.2 H Hct 49.3 MCV 89.3 MCH 33.0 MCHC 36.9 H RDW 12.1 Plt Count 256 MPV 10.7 Immature Gran % (Auto) 0.4 Neut % (Auto) 81.6 H Lymph % (Auto) 12.1 L [place] % (Auto) 5.6 Eos % (Auto) 0.1 Baso % (Auto) 0.2 Lymph # (Auto) 2.1 [place] # (Auto) 0.9 Eos # (Auto) 0.0 Baso # (Auto) 0.0 Abs Immat Gran (auto) 0.06 H Absolute Neuts (auto) 13.8 H Absolute Nucleated RBC 0.000 Nucleated RBC % (auto) 0.0 Hold Purple Top SEE NOTE PT INR D-Dimer High Sensitivty VBG pH 7.38 VBG pCO2 31 VBG pO2 81 VBG HCO3 19 L VBG O2 Saturation 96.0 VBG Base Excess -4.5 Sodium 144 Potassium 4.6 Chloride 109 H Carbon Dioxide 20 L Anion Gap 20 BUN 25 H Creatinine 1.24 Estim Creat Clear Calc 100.7 Estimated GFR > 60 POC Glucose Random Glucose 113 Osmolality Lactic Acid 1.0 Calcium 9.7 Phosphorus Magnesium 2.5 Total Bilirubin 1.0 Direct Bilirubin 0.4 AST 41 H ALT 36 Alkaline Phosphatase 85 Ammonia 49 Total Creatine Kinase 518 H Troponin I High Sens C-Reactive Protein 1.48 H B-Natriuretic Peptide < 10 Total Protein 7.9 Albumin 4.8 Triglycerides Lipase 13 TSH 0.66 Hold Green Top Urine Color Urine Appearance Urine pH Ur Specific [place] Urine Protein Urine Glucose (UA) Urine Ketones Urine Blood Urine Nitrite Ur Leukocyte Esterase CSF Tube Number CSF Volume CSF Appearance CSF Color CSF WBC CSF RBC CSF Neutrophils CSF Lymphocytes CSF Monocytes % CSF Appearance (b) CSF Total Protein CSF C.neoform/gat PCR CSF CMV DNA (PCR) CSF Enterovirus (PCR) CSF E. coli K1 (PCR) CSF H. influenzae (PCR) CSF HSV I (PCR) CSF HSV II (PCR) CSF HHV 6 (PCR) CSF L.monocytogenes PCR CSF N. meningitidis PCR CSF Parechovirus (PCR) CSF S. agalactiae (PCR) CSF S. pneumoniae (PCR) CSF VZV (PCR) Nasal Screen MRSA (PCR) Nasal S. aureus Screen Nasal MRSA/S.aureus Interp Salicylates Urine Opiates Screen Ur Buprenorphine Scrn Ur Oxycodone Screen Urine Methadone Screen Urine Fentanyl Screen Acetaminophen Ur Barbiturates Screen Lamotrigine Ur Phencyclidine Scrn Ur Amphetamines Screen U Benzodiazepines Scrn Urine Cocaine Screen U Marijuana (THC) Screen Ethyl Alcohol < 10 Influenza Type A (PCR) Influenza Type B (PCR) RSV RNA Qual (PCR) SARS-CoV-2 RNA (RT-PCR) 12/14/24 12/14/24 12/15/24 20:36 22:26 17:26 WBC 13.5 H RBC 4.61 Hgb 14.8 Hct 42.7 MCV 92.6 MCH 32.1 MCHC 34.7 RDW 12.3 Plt Count 178 D MPV 10.7 Immature Gran % (Auto) 0.4 Neut % (Auto) 77.9 H Lymph % (Auto) 15.2 L [place] % (Auto) 6.2 Eos % (Auto) 0.1 Baso % (Auto) 0.2 Lymph # (Auto) 2.1 [place] # (Auto) 0.8 Eos # (Auto) 0.0 Baso # (Auto) 0.0 Abs Immat Gran (auto) 0.06 H Absolute Neuts (auto) 10.5 H Absolute Nucleated RBC 0.000 Nucleated RBC % (auto) 0.0 Hold Purple Top PT INR D-Dimer High Sensitivty VBG pH VBG pCO2 VBG pO2 VBG HCO3 VBG O2 Saturation VBG Base Excess Sodium 141 Potassium 3.4 D Chloride 108 Carbon Dioxide 27 Anion Gap 9 L BUN 13 Creatinine 0.85 Estim Creat Clear Calc 146.9 Estimated GFR > 60 POC Glucose Random Glucose 166 H Osmolality Lactic Acid Calcium 8.4 D Phosphorus Magnesium Total Bilirubin 1.0 Direct Bilirubin AST 32 ALT 22 Alkaline Phosphatase 66 Ammonia Total Creatine Kinase 416 H Troponin I High Sens 13.5 D C-Reactive Protein 3.76 H B-Natriuretic Peptide Total Protein 6.0 L Albumin 3.7 Triglycerides Lipase TSH Hold Green Top Urine Color Yellow Urine Appearance Clear Urine pH 6.0 Ur Specific [place] >= 1.030 H Urine Protein Trace Urine Glucose (UA) Negative Urine Ketones 80 Urine Blood Negative Urine Nitrite Negative Ur Leukocyte Esterase Negative CSF Tube Number CSF Volume CSF Appearance CSF Color CSF WBC CSF RBC CSF Neutrophils CSF Lymphocytes CSF Monocytes % CSF Appearance (b) CSF Total Protein CSF C.neoform/gat PCR CSF CMV DNA (PCR) CSF Enterovirus (PCR) CSF E. coli K1 (PCR) CSF H. influenzae (PCR) CSF HSV I (PCR) CSF HSV II (PCR) CSF HHV 6 (PCR) CSF L.monocytogenes PCR CSF N. meningitidis PCR CSF Parechovirus (PCR) CSF S. agalactiae (PCR) CSF S. pneumoniae (PCR) CSF VZV (PCR) Nasal Screen MRSA (PCR) Nasal S. aureus Screen Nasal MRSA/S.aureus Interp Salicylates Urine Opiates Screen Not Detected Ur Buprenorphine Scrn Not Detected Ur Oxycodone Screen Not Detected Urine Methadone Screen Not Detected Urine Fentanyl Screen Not Detected Acetaminophen Ur Barbiturates Screen Not Detected Lamotrigine Ur Phencyclidine Scrn Not Detected Ur Amphetamines Screen Not Detected U Benzodiazepines Scrn POSITIVE H Urine Cocaine Screen Not Detected U Marijuana (THC) Screen Not Detected Ethyl Alcohol Influenza Type A (PCR) Influenza Type B (PCR) RSV RNA Qual (PCR) SARS-CoV-2 RNA (RT-PCR) 12/15/24 12/15/24 12/15/24 19:29 19:47 23:06 WBC RBC Hgb Hct MCV MCH MCHC RDW Plt Count MPV Immature Gran % (Auto) Neut % (Auto) Lymph % (Auto) [place] % (Auto) Eos % (Auto) Baso % (Auto) Lymph # (Auto) [place] # (Auto) Eos # (Auto) Baso # (Auto) Abs Immat Gran (auto) Absolute Neuts (auto) Absolute Nucleated RBC Nucleated RBC % (auto) Hold Purple Top PT INR D-Dimer High Sensitivty VBG pH VBG pCO2 VBG pO2 VBG HCO3 VBG O2 Saturation VBG Base Excess Sodium Potassium Chloride Carbon Dioxide Anion Gap BUN Creatinine Estim Creat Clear Calc Estimated GFR POC Glucose Random Glucose Osmolality Lactic Acid 1.3 1.3 Calcium Phosphorus Magnesium Total Bilirubin Direct Bilirubin AST ALT Alkaline Phosphatase Ammonia Total Creatine Kinase Troponin I High Sens C-Reactive Protein B-Natriuretic Peptide Total Protein Albumin Triglycerides Lipase TSH Hold Green Top Urine Color Urine Appearance Urine pH Ur Specific [place] Urine Protein Urine Glucose (UA) Urine Ketones Urine Blood Urine Nitrite Ur Leukocyte Esterase CSF Tube Number CSF Volume CSF Appearance CSF Color CSF WBC CSF RBC CSF Neutrophils CSF Lymphocytes CSF Monocytes % CSF Appearance (b) CSF Total Protein CSF C.neoform/gat PCR CSF CMV DNA (PCR) CSF Enterovirus (PCR) CSF E. coli K1 (PCR) CSF H. influenzae (PCR) CSF HSV I (PCR) CSF HSV II (PCR) CSF HHV 6 (PCR) CSF L.monocytogenes PCR CSF N. meningitidis PCR CSF Parechovirus (PCR) CSF S. agalactiae (PCR) CSF S. pneumoniae (PCR) CSF VZV (PCR) Nasal Screen MRSA (PCR) NEGATIVE Nasal S. aureus Screen NEGATIVE Nasal MRSA/S.aureus Interp SEE NOTE Salicylates Urine Opiates Screen Ur Buprenorphine Scrn Ur Oxycodone Screen Urine Methadone Screen Urine Fentanyl Screen Acetaminophen Ur Barbiturates Screen Lamotrigine Ur Phencyclidine Scrn Ur Amphetamines Screen U Benzodiazepines Scrn Urine Cocaine Screen U Marijuana (THC) Screen Ethyl Alcohol Influenza Type A (PCR) Influenza Type B (PCR) RSV RNA Qual (PCR) SARS-CoV-2 RNA (RT-PCR) 12/16/24 12/16/24 12/16/24 04:47 15:44 15:44 WBC 11.3 H RBC 4.36 L Hgb 14.5 Hct 39.6 L MCV 90.8 MCH 33.3 H MCHC 36.6 H RDW 12.3 Plt Count 176 MPV 11.3 Immature Gran % (Auto) 0.4 Neut % (Auto) 79.3 H Lymph % (Auto) 13.0 L [place] % (Auto) 6.9 Eos % (Auto) 0.1 Baso % (Auto) 0.3 Lymph # (Auto) 1.5 [place] # (Auto) 0.8 Eos # (Auto) 0.0 Baso # (Auto) 0.0 Abs Immat Gran (auto) 0.04 H Absolute Neuts (auto) 9.0 H Absolute Nucleated RBC 0.000 Nucleated RBC % (auto) 0.0 Hold Purple Top PT INR D-Dimer High Sensitivty VBG pH VBG pCO2 VBG pO2 VBG HCO3 VBG O2 Saturation VBG Base Excess Sodium 141 Potassium 3.7 Chloride 109 H Carbon Dioxide 23 Anion Gap 13 BUN 8 L Creatinine 0.74 Estim Creat Clear Calc 168.7 Estimated GFR > 60 POC Glucose Random Glucose 135 H Osmolality Lactic Acid Calcium 8.5 Phosphorus Magnesium Total Bilirubin Direct Bilirubin AST ALT Alkaline Phosphatase Ammonia Total Creatine Kinase Troponin I High Sens C-Reactive Protein B-Natriuretic Peptide Total Protein Albumin Triglycerides Lipase TSH Hold Green Top Urine Color Urine Appearance Urine pH Ur Specific [place] Urine Protein Urine Glucose (UA) Urine Ketones Urine Blood Urine Nitrite Ur Leukocyte Esterase CSF Tube Number 1 4 CSF Volume 3.0 CSF Appearance HAZY CSF Color PINK CSF WBC 11 H* CSF RBC 2962 CSF Neutrophils 68 CSF Lymphocytes 30 CSF Monocytes % 2 CSF Appearance (b) Clear, Colorless CSF Total Protein 29.3 CSF C.neoform/gat PCR Not Detected CSF CMV DNA (PCR) Not Detected CSF Enterovirus (PCR) Not Detected CSF E. coli K1 (PCR) Not Detected CSF H. influenzae (PCR) Not Detected CSF HSV I (PCR) Not Detected CSF HSV II (PCR) Not Detected CSF HHV 6 (PCR) Not Detected CSF L.monocytogenes PCR Not Detected CSF N. meningitidis PCR Not Detected CSF Parechovirus (PCR) Not Detected CSF S. agalactiae (PCR) Not Detected CSF S. pneumoniae (PCR) Not Detected CSF VZV (PCR) Not Detected Nasal Screen MRSA (PCR) Nasal S. aureus Screen Nasal MRSA/S.aureus Interp Salicylates Urine Opiates Screen Ur Buprenorphine Scrn Ur Oxycodone Screen Urine Methadone Screen Urine Fentanyl Screen Acetaminophen Ur Barbiturates Screen Lamotrigine Ur Phencyclidine Scrn Ur Amphetamines Screen U Benzodiazepines Scrn Urine Cocaine Screen U Marijuana (THC) Screen Ethyl Alcohol Influenza Type A (PCR) Influenza Type B (PCR) RSV RNA Qual (PCR) SARS-CoV-2 RNA (RT-PCR) 12/17/24 12/17/24 12/17/24 05:44 06:30 21:57 WBC 8.6 RBC 4.72 Hgb 15.5 Hct 42.6 MCV 90.3 MCH 32.8 MCHC 36.4 H RDW 11.9 Plt Count 173 MPV 11.7 Immature Gran % (Auto) Neut % (Auto) Lymph % (Auto) [place] % (Auto) Eos % (Auto) Baso % (Auto) Lymph # (Auto) [place] # (Auto) Eos # (Auto) Baso # (Auto) Abs Immat Gran (auto) Absolute Neuts (auto) Absolute Nucleated RBC 0.000 Nucleated RBC % (auto) 0.0 Hold Purple Top PT INR D-Dimer High Sensitivty VBG pH VBG pCO2 VBG pO2 VBG HCO3 VBG O2 Saturation VBG Base Excess Sodium 141 Potassium 3.7 Chloride 109 H Carbon Dioxide 23 Anion Gap 13 BUN 6 L Creatinine 0.75 Estim Creat Clear Calc 166.5 Estimated GFR > 60 POC Glucose 83 74 Random Glucose 83 Osmolality Lactic Acid Calcium 8.8 Phosphorus Magnesium Total Bilirubin Direct Bilirubin AST ALT Alkaline Phosphatase Ammonia Total Creatine Kinase Troponin I High Sens C-Reactive Protein B-Natriuretic Peptide Total Protein Albumin Triglycerides Lipase TSH Hold Green Top Urine Color Urine Appearance Urine pH Ur Specific [place] Urine Protein Urine Glucose (UA) Urine Ketones Urine Blood Urine Nitrite Ur Leukocyte Esterase CSF Tube Number CSF Volume CSF Appearance CSF Color CSF WBC CSF RBC CSF Neutrophils CSF Lymphocytes CSF Monocytes % CSF Appearance (b) CSF Total Protein CSF C.neoform/gat PCR CSF CMV DNA (PCR) CSF Enterovirus (PCR) CSF E. coli K1 (PCR) CSF H. influenzae (PCR) CSF HSV I (PCR) CSF HSV II (PCR) CSF HHV 6 (PCR) CSF L.monocytogenes PCR CSF N. meningitidis PCR CSF Parechovirus (PCR) CSF S. agalactiae (PCR) CSF S. pneumoniae (PCR) CSF VZV (PCR) Nasal Screen MRSA (PCR) Nasal S. aureus Screen Nasal MRSA/S.aureus Interp Salicylates Urine Opiates Screen Ur Buprenorphine Scrn Ur Oxycodone Screen Urine Methadone Screen Urine Fentanyl Screen Acetaminophen Ur Barbiturates Screen Lamotrigine Ur Phencyclidine Scrn Ur Amphetamines Screen U Benzodiazepines Scrn Urine Cocaine Screen U Marijuana (THC) Screen Ethyl Alcohol Influenza Type A (PCR) Influenza Type B (PCR) RSV RNA Qual (PCR) SARS-CoV-2 RNA (RT-PCR) 12/18/24 12/18/24 12/18/24 04:11 06:58 07:28 WBC 8.4 RBC 4.53 L Hgb 14.9 Hct 40.1 L MCV 88.5 MCH 32.9 MCHC 37.2 H RDW 11.9 Plt Count 182 MPV 10.8 Immature Gran % (Auto) 0.6 H Neut % (Auto) 75.8 H Lymph % (Auto) 17.2 L [place] % (Auto) 5.4 Eos % (Auto) 0.6 Baso % (Auto) 0.4 Lymph # (Auto) 1.4 [place] # (Auto) 0.5 Eos # (Auto) 0.1 Baso # (Auto) 0.0 Abs Immat Gran (auto) 0.05 H Absolute Neuts (auto) 6.4 Absolute Nucleated RBC 0.000 Nucleated RBC % (auto) 0.0 Hold Purple Top PT INR D-Dimer High Sensitivty VBG pH VBG pCO2 VBG pO2 VBG HCO3 VBG O2 Saturation VBG Base Excess Sodium 141 Potassium 3.6 Chloride 108 Carbon Dioxide 21 L Anion Gap 16 BUN 9 Creatinine 0.69 Estim Creat Clear Calc 181.0 Estimated GFR > 60 POC Glucose 85 93 Random Glucose 80 Osmolality Lactic Acid Calcium 8.8 Phosphorus Magnesium Total Bilirubin Direct Bilirubin AST ALT Alkaline Phosphatase Ammonia Total Creatine Kinase Troponin I High Sens C-Reactive Protein B-Natriuretic Peptide Total Protein Albumin Triglycerides Lipase TSH Hold Green Top Urine Color Urine Appearance Urine pH Ur Specific [place] Urine Protein Urine Glucose (UA) Urine Ketones Urine Blood Urine Nitrite Ur Leukocyte Esterase CSF Tube Number CSF Volume CSF Appearance CSF Color CSF WBC CSF RBC CSF Neutrophils CSF Lymphocytes CSF Monocytes % CSF Appearance (b) CSF Total Protein CSF C.neoform/gat PCR CSF CMV DNA (PCR) CSF Enterovirus (PCR) CSF E. coli K1 (PCR) CSF H. influenzae (PCR) CSF HSV I (PCR) CSF HSV II (PCR) CSF HHV 6 (PCR) CSF L.monocytogenes PCR CSF N. meningitidis PCR CSF Parechovirus (PCR) CSF S. agalactiae (PCR) CSF S. pneumoniae (PCR) CSF VZV (PCR) Nasal Screen MRSA (PCR) Nasal S. aureus Screen Nasal MRSA/S.aureus Interp Salicylates Urine Opiates Screen Ur Buprenorphine Scrn Ur Oxycodone Screen Urine Methadone Screen Urine Fentanyl Screen Acetaminophen Ur Barbiturates Screen Lamotrigine Ur Phencyclidine Scrn Ur Amphetamines Screen U Benzodiazepines Scrn Urine Cocaine Screen U Marijuana (THC) Screen Ethyl Alcohol Influenza Type A (PCR) Influenza Type B (PCR) RSV RNA Qual (PCR) SARS-CoV-2 RNA (RT-PCR) 12/18/24 12/18/24 12/19/24 14:37 20:05 03:47 WBC RBC Hgb Hct MCV MCH MCHC RDW Plt Count MPV Immature Gran % (Auto) Neut % (Auto) Lymph % (Auto) [place] % (Auto) Eos % (Auto) Baso % (Auto) Lymph # (Auto) [place] # (Auto) Eos # (Auto) Baso # (Auto) Abs Immat Gran (auto) Absolute Neuts (auto) Absolute Nucleated RBC Nucleated RBC % (auto) Hold Purple Top PT INR D-Dimer High Sensitivty VBG pH VBG pCO2 VBG pO2 VBG HCO3 VBG O2 Saturation VBG Base Excess Sodium Potassium Chloride Carbon Dioxide Anion Gap BUN Creatinine Estim Creat Clear Calc Estimated GFR POC Glucose 89 116 H 123 H Random Glucose Osmolality Lactic Acid Calcium Phosphorus Magnesium Total Bilirubin Direct Bilirubin AST ALT Alkaline Phosphatase Ammonia Total Creatine Kinase Troponin I High Sens C-Reactive Protein B-Natriuretic Peptide Total Protein Albumin Triglycerides Lipase TSH Hold Green Top Urine Color Urine Appearance Urine pH Ur Specific [place] Urine Protein Urine Glucose (UA) Urine Ketones Urine Blood Urine Nitrite Ur Leukocyte Esterase CSF Tube Number CSF Volume CSF Appearance CSF Color CSF WBC CSF RBC CSF Neutrophils CSF Lymphocytes CSF Monocytes % CSF Appearance (b) CSF Total Protein CSF C.neoform/gat PCR CSF CMV DNA (PCR) CSF Enterovirus (PCR) CSF E. coli K1 (PCR) CSF H. influenzae (PCR) CSF HSV I (PCR) CSF HSV II (PCR) CSF HHV 6 (PCR) CSF L.monocytogenes PCR CSF N. meningitidis PCR CSF Parechovirus (PCR) CSF S. agalactiae (PCR) CSF S. pneumoniae (PCR) CSF VZV (PCR) Nasal Screen MRSA (PCR) Nasal S. aureus Screen Nasal MRSA/S.aureus Interp Salicylates Urine Opiates Screen Ur Buprenorphine Scrn Ur Oxycodone Screen Urine Methadone Screen Urine Fentanyl Screen Acetaminophen Ur Barbiturates Screen Lamotrigine Ur Phencyclidine Scrn Ur Amphetamines Screen U Benzodiazepines Scrn Urine Cocaine Screen U Marijuana (THC) Screen Ethyl Alcohol Influenza Type A (PCR) Influenza Type B (PCR) RSV RNA Qual (PCR) SARS-CoV-2 RNA (RT-PCR) 12/19/24 12/19/24 12/19/24 07:19 09:05 16:39 WBC 7.7 RBC 4.53 L Hgb 14.7 Hct 39.3 L MCV 86.8 MCH 32.5 MCHC 37.4 H RDW 11.8 Plt Count 206 MPV 10.6 Immature Gran % (Auto) 0.4 Neut % (Auto) 63.7 Lymph % (Auto) 26.3 [place] % (Auto) 8.3 Eos % (Auto) 1.0 Baso % (Auto) 0.3 Lymph # (Auto) 2.0 [place] # (Auto) 0.6 Eos # (Auto) 0.1 Baso # (Auto) 0.0 Abs Immat Gran (auto) 0.03 Absolute Neuts (auto) 4.9 Absolute Nucleated RBC 0.000 Nucleated RBC % (auto) 0.0 Hold Purple Top PT INR D-Dimer High Sensitivty VBG pH VBG pCO2 VBG pO2 VBG HCO3 VBG O2 Saturation VBG Base Excess Sodium 140 Potassium 3.6 Chloride 107 Carbon Dioxide 22 Anion Gap 15 BUN 8 L Creatinine 0.73 Estim Creat Clear Calc 171.1 Estimated GFR > 60 POC Glucose 115 123 H Random Glucose 101 Osmolality Lactic Acid Calcium 8.7 Phosphorus Magnesium Total Bilirubin 1.0 Direct Bilirubin 0.4 AST 28 ALT 13 Alkaline Phosphatase 58 Ammonia Total Creatine Kinase 234 H Troponin I High Sens C-Reactive Protein B-Natriuretic Peptide Total Protein 6.3 L Albumin 3.7 Triglycerides Lipase TSH Hold Green Top Urine Color Urine Appearance Urine pH Ur Specific [place] Urine Protein Urine Glucose (UA) Urine Ketones Urine Blood Urine Nitrite Ur Leukocyte Esterase CSF Tube Number CSF Volume CSF Appearance CSF Color CSF WBC CSF RBC CSF Neutrophils CSF Lymphocytes CSF Monocytes % CSF Appearance (b) CSF Total Protein CSF C.neoform/gat PCR CSF CMV DNA (PCR) CSF Enterovirus (PCR) CSF E. coli K1 (PCR) CSF H. influenzae (PCR) CSF HSV I (PCR) CSF HSV II (PCR) CSF HHV 6 (PCR) CSF L.monocytogenes PCR CSF N. meningitidis PCR CSF Parechovirus (PCR) CSF S. agalactiae (PCR) CSF S. pneumoniae (PCR) CSF VZV (PCR) Nasal Screen MRSA (PCR) Nasal S. aureus Screen Nasal MRSA/S.aureus Interp Salicylates Urine Opiates Screen Ur Buprenorphine Scrn Ur Oxycodone Screen Urine Methadone Screen Urine Fentanyl Screen Acetaminophen Ur Barbiturates Screen Lamotrigine Ur Phencyclidine Scrn Ur Amphetamines Screen U Benzodiazepines Scrn Urine Cocaine Screen U Marijuana (THC) Screen Ethyl Alcohol Influenza Type A (PCR) Influenza Type B (PCR) RSV RNA Qual (PCR) SARS-CoV-2 RNA (RT-PCR) 12/19/24 12/20/24 12/20/24 19:56 04:35 06:23 WBC 9.0 RBC 4.45 L Hgb 14.4 Hct 39.1 L MCV 87.9 MCH 32.4 MCHC 36.8 H RDW 11.8 Plt Count 208 MPV 10.8 Immature Gran % (Auto) 0.4 Neut % (Auto) 66.6 Lymph % (Auto) 22.9 [place] % (Auto) 8.5 Eos % (Auto) 1.3 Baso % (Auto) 0.3 Lymph # (Auto) 2.1 [place] # (Auto) 0.8 Eos # (Auto) 0.1 Baso # (Auto) 0.0 Abs Immat Gran (auto) 0.04 H Absolute Neuts (auto) 6.0 Absolute Nucleated RBC 0.000 Nucleated RBC % (auto) 0.0 Hold Purple Top PT INR D-Dimer High Sensitivty VBG pH VBG pCO2 VBG pO2 VBG HCO3 VBG O2 Saturation VBG Base Excess Sodium 139 Potassium 3.0 L Chloride 106 Carbon Dioxide 23 Anion Gap 13 BUN 5 L Creatinine 0.70 Estim Creat Clear Calc 178.4 Estimated GFR > 60 POC Glucose 101 114 Random Glucose 118 H Osmolality Lactic Acid Calcium 8.7 Phosphorus Magnesium Total Bilirubin Direct Bilirubin AST ALT Alkaline Phosphatase Ammonia Total Creatine Kinase Troponin I High Sens C-Reactive Protein B-Natriuretic Peptide Total Protein Albumin Triglycerides Lipase TSH Hold Green Top Urine Color Urine Appearance Urine pH Ur Specific [place] Urine Protein Urine Glucose (UA) Urine Ketones Urine Blood Urine Nitrite Ur Leukocyte Esterase CSF Tube Number CSF Volume CSF Appearance CSF Color CSF WBC CSF RBC CSF Neutrophils CSF Lymphocytes CSF Monocytes % CSF Appearance (b) CSF Total Protein CSF C.neoform/gat PCR CSF CMV DNA (PCR) CSF Enterovirus (PCR) CSF E. coli K1 (PCR) CSF H. influenzae (PCR) CSF HSV I (PCR) CSF HSV II (PCR) CSF HHV 6 (PCR) CSF L.monocytogenes PCR CSF N. meningitidis PCR CSF Parechovirus (PCR) CSF S. agalactiae (PCR) CSF S. pneumoniae (PCR) CSF VZV (PCR) Nasal Screen MRSA (PCR) Nasal S. aureus Screen Nasal MRSA/S.aureus Interp Salicylates Urine Opiates Screen Ur Buprenorphine Scrn Ur Oxycodone Screen Urine Methadone Screen Urine Fentanyl Screen Acetaminophen Ur Barbiturates Screen Lamotrigine Ur Phencyclidine Scrn Ur Amphetamines Screen U Benzodiazepines Scrn Urine Cocaine Screen U Marijuana (THC) Screen Ethyl Alcohol Influenza Type A (PCR) Influenza Type B (PCR) RSV RNA Qual (PCR) SARS-CoV-2 RNA (RT-PCR) 12/20/24 12/20/24 12/20/24 08:48 10:35 16:17 WBC RBC Hgb Hct MCV MCH MCHC RDW Plt Count MPV Immature Gran % (Auto) Neut % (Auto) Lymph % (Auto) [place] % (Auto) Eos % (Auto) Baso % (Auto) Lymph # (Auto) [place] # (Auto) Eos # (Auto) Baso # (Auto) Abs Immat Gran (auto) Absolute Neuts (auto) Absolute Nucleated RBC Nucleated RBC % (auto) Hold Purple Top PT INR D-Dimer High Sensitivty VBG pH VBG pCO2 VBG pO2 VBG HCO3 VBG O2 Saturation VBG Base Excess Sodium Potassium Chloride Carbon Dioxide Anion Gap BUN Creatinine Estim Creat Clear Calc Estimated GFR POC Glucose 121 H 127 H Random Glucose Osmolality Lactic Acid Calcium Phosphorus 2.7 Magnesium 1.7 Total Bilirubin Direct Bilirubin AST ALT Alkaline Phosphatase Ammonia Total Creatine Kinase Troponin I High Sens C-Reactive Protein B-Natriuretic Peptide Total Protein Albumin 3.6 Triglycerides Lipase TSH Hold Green Top Urine Color Urine Appearance Urine pH Ur Specific [place] Urine Protein Urine Glucose (UA) Urine Ketones Urine Blood Urine Nitrite Ur Leukocyte Esterase CSF Tube Number CSF Volume CSF Appearance CSF Color CSF WBC CSF RBC CSF Neutrophils CSF Lymphocytes CSF Monocytes % CSF Appearance (b) CSF Total Protein CSF C.neoform/gat PCR CSF CMV DNA (PCR) CSF Enterovirus (PCR) CSF E. coli K1 (PCR) CSF H. influenzae (PCR) CSF HSV I (PCR) CSF HSV II (PCR) CSF HHV 6 (PCR) CSF L.monocytogenes PCR CSF N. meningitidis PCR CSF Parechovirus (PCR) CSF S. agalactiae (PCR) CSF S. pneumoniae (PCR) CSF VZV (PCR) Nasal Screen MRSA (PCR) Nasal S. aureus Screen Nasal MRSA/S.aureus Interp Salicylates Urine Opiates Screen Ur Buprenorphine Scrn Ur Oxycodone Screen Urine Methadone Screen Urine Fentanyl Screen Acetaminophen Ur Barbiturates Screen Lamotrigine Ur Phencyclidine Scrn Ur Amphetamines Screen U Benzodiazepines Scrn Urine Cocaine Screen U Marijuana (THC) Screen Ethyl Alcohol Influenza Type A (PCR) Influenza Type B (PCR) RSV RNA Qual (PCR) SARS-CoV-2 RNA (RT-PCR) 12/21/24 12/21/24 12/21/24 00:13 06:53 07:18 WBC RBC Hgb Hct MCV MCH MCHC RDW Plt Count MPV Immature Gran % (Auto) Neut % (Auto) Lymph % (Auto) [place] % (Auto) Eos % (Auto) Baso % (Auto) Lymph # (Auto) [place] # (Auto) Eos # (Auto) Baso # (Auto) Abs Immat Gran (auto) Absolute Neuts (auto) Absolute Nucleated RBC Nucleated RBC % (auto) Hold Purple Top PT INR D-Dimer High Sensitivty VBG pH VBG pCO2 VBG pO2 VBG HCO3 VBG O2 Saturation VBG Base Excess Sodium 141 Potassium 3.2 L Chloride 108 Carbon Dioxide 24 Anion Gap 12 BUN 7 L Creatinine 0.74 Estim Creat Clear Calc 168.7 Estimated GFR > 60 POC Glucose 113 126 H Random Glucose 119 H Osmolality Lactic Acid Calcium 8.9 Phosphorus 3.6 Magnesium 2.0 Total Bilirubin Direct Bilirubin AST ALT Alkaline Phosphatase Ammonia Total Creatine Kinase Troponin I High Sens C-Reactive Protein B-Natriuretic Peptide Total Protein Albumin 3.6 Triglycerides 166 H Lipase TSH Hold Green Top Urine Color Urine Appearance Urine pH Ur Specific [place] Urine Protein Urine Glucose (UA) Urine Ketones Urine Blood Urine Nitrite Ur Leukocyte Esterase CSF Tube Number CSF Volume CSF Appearance CSF Color CSF WBC CSF RBC CSF Neutrophils CSF Lymphocytes CSF Monocytes % CSF Appearance (b) CSF Total Protein CSF C.neoform/gat PCR CSF CMV DNA (PCR) CSF Enterovirus (PCR) CSF E. coli K1 (PCR) CSF H. influenzae (PCR) CSF HSV I (PCR) CSF HSV II (PCR) CSF HHV 6 (PCR) CSF L.monocytogenes PCR CSF N. meningitidis PCR CSF Parechovirus (PCR) CSF S. agalactiae (PCR) CSF S. pneumoniae (PCR) CSF VZV (PCR) Nasal Screen MRSA (PCR) Nasal S. aureus Screen Nasal MRSA/S.aureus Interp Salicylates Urine Opiates Screen Ur Buprenorphine Scrn Ur Oxycodone Screen Urine Methadone Screen Urine Fentanyl Screen Acetaminophen Ur Barbiturates Screen Lamotrigine Ur Phencyclidine Scrn Ur Amphetamines Screen U Benzodiazepines Scrn Urine Cocaine Screen U Marijuana (THC) Screen Ethyl Alcohol Influenza Type A (PCR) Influenza Type B (PCR) RSV RNA Qual (PCR) SARS-CoV-2 RNA (RT-PCR) 12/21/24 12/21/24 12/21/24 08:09 10:46 16:42 WBC 8.7 RBC 4.56 L Hgb 14.9 Hct 40.0 L MCV 87.7 MCH 32.7 MCHC 37.3 H RDW 11.9 Plt Count 209 MPV 10.7 Immature Gran % (Auto) Neut % (Auto) Lymph % (Auto) [place] % (Auto) Eos % (Auto) Baso % (Auto) Lymph # (Auto) [place] # (Auto) Eos # (Auto) Baso # (Auto) Abs Immat Gran (auto) Absolute Neuts (auto) Absolute Nucleated RBC 0.000 Nucleated RBC % (auto) 0.0 Hold Purple Top PT INR D-Dimer High Sensitivty VBG pH VBG pCO2 VBG pO2 VBG HCO3 VBG O2 Saturation VBG Base Excess Sodium Potassium Chloride Carbon Dioxide Anion Gap BUN Creatinine Estim Creat Clear Calc Estimated GFR POC Glucose 114 119 H Random Glucose Osmolality Lactic Acid Calcium Phosphorus Magnesium Total Bilirubin Direct Bilirubin AST ALT Alkaline Phosphatase Ammonia Total Creatine Kinase Troponin I High Sens C-Reactive Protein B-Natriuretic Peptide Total Protein Albumin Triglycerides Lipase TSH Hold Green Top Urine Color Urine Appearance Urine pH Ur Specific [place] Urine Protein Urine Glucose (UA) Urine Ketones Urine Blood Urine Nitrite Ur Leukocyte Esterase CSF Tube Number CSF Volume CSF Appearance CSF Color CSF WBC CSF RBC CSF Neutrophils CSF Lymphocytes CSF Monocytes % CSF Appearance (b) CSF Total Protein CSF C.neoform/gat PCR CSF CMV DNA (PCR) CSF Enterovirus (PCR) CSF E. coli K1 (PCR) CSF H. influenzae (PCR) CSF HSV I (PCR) CSF HSV II (PCR) CSF HHV 6 (PCR) CSF L.monocytogenes PCR CSF N. meningitidis PCR CSF Parechovirus (PCR) CSF S. agalactiae (PCR) CSF S. pneumoniae (PCR) CSF VZV (PCR) Nasal Screen MRSA (PCR) Nasal S. aureus Screen Nasal MRSA/S.aureus Interp Salicylates Urine Opiates Screen Ur Buprenorphine Scrn Ur Oxycodone Screen Urine Methadone Screen Urine Fentanyl Screen Acetaminophen Ur Barbiturates Screen Lamotrigine Ur Phencyclidine Scrn Ur Amphetamines Screen U Benzodiazepines Scrn Urine Cocaine Screen U Marijuana (THC) Screen Ethyl Alcohol Influenza Type A (PCR) Influenza Type B (PCR) RSV RNA Qual (PCR) SARS-CoV-2 RNA (RT-PCR) 12/21/24 12/22/24 12/22/24 22:22 04:21 06:17 WBC 9.3 RBC 4.69 Hgb 15.0 Hct 42.3 MCV 90.2 MCH 32.0 MCHC 35.5 RDW 12.1 Plt Count 227 MPV 10.9 Immature Gran % (Auto) 0.5 H Neut % (Auto) 62.4 Lymph % (Auto) 26.8 [place] % (Auto) 8.4 Eos % (Auto) 1.6 Baso % (Auto) 0.3 Lymph # (Auto) 2.5 [place] # (Auto) 0.8 Eos # (Auto) 0.2 Baso # (Auto) 0.0 Abs Immat Gran (auto) 0.05 H Absolute Neuts (auto) 5.8 Absolute Nucleated RBC 0.000 Nucleated RBC % (auto) 0.0 Hold Purple Top PT INR D-Dimer High Sensitivty VBG pH VBG pCO2 VBG pO2 VBG HCO3 VBG O2 Saturation VBG Base Excess Sodium 139 Potassium 3.5 Chloride 108 Carbon Dioxide 22 Anion Gap 13 BUN 10 Creatinine 0.71 Estim Creat Clear Calc 175.9 Estimated GFR > 60 POC Glucose 106 140 H Random Glucose 123 H Osmolality Lactic Acid Calcium 9.0 Phosphorus 3.9 Magnesium 2.1 Total Bilirubin Direct Bilirubin AST ALT Alkaline Phosphatase Ammonia Total Creatine Kinase Troponin I High Sens C-Reactive Protein B-Natriuretic Peptide Total Protein Albumin 3.7 Triglycerides Lipase TSH Hold Green Top Urine Color Urine Appearance Urine pH Ur Specific [place] Urine Protein Urine Glucose (UA) Urine Ketones Urine Blood Urine Nitrite Ur Leukocyte Esterase CSF Tube Number CSF Volume CSF Appearance CSF Color CSF WBC CSF RBC CSF Neutrophils CSF Lymphocytes CSF Monocytes % CSF Appearance (b) CSF Total Protein CSF C.neoform/gat PCR CSF CMV DNA (PCR) CSF Enterovirus (PCR) CSF E. coli K1 (PCR) CSF H. influenzae (PCR) CSF HSV I (PCR) CSF HSV II (PCR) CSF HHV 6 (PCR) CSF L.monocytogenes PCR CSF N. meningitidis PCR CSF Parechovirus (PCR) CSF S. agalactiae (PCR) CSF S. pneumoniae (PCR) CSF VZV (PCR) Nasal Screen MRSA (PCR) Nasal S. aureus Screen Nasal MRSA/S.aureus Interp Salicylates Urine Opiates Screen Ur Buprenorphine Scrn Ur Oxycodone Screen Urine Methadone Screen Urine Fentanyl Screen Acetaminophen Ur Barbiturates Screen Lamotrigine Ur Phencyclidine Scrn Ur Amphetamines Screen U Benzodiazepines Scrn Urine Cocaine Screen U Marijuana (THC) Screen Ethyl Alcohol Influenza Type A (PCR) Influenza Type B (PCR) RSV RNA Qual (PCR) SARS-CoV-2 RNA (RT-PCR) 12/22/24 12/22/24 12/22/24 07:27 11:03 16:07 WBC RBC Hgb Hct MCV MCH MCHC RDW Plt Count MPV Immature Gran % (Auto) Neut % (Auto) Lymph % (Auto) [place] % (Auto) Eos % (Auto) Baso % (Auto) Lymph # (Auto) [place] # (Auto) Eos # (Auto) Baso # (Auto) Abs Immat Gran (auto) Absolute Neuts (auto) Absolute Nucleated RBC Nucleated RBC % (auto) Hold Purple Top PT INR D-Dimer High Sensitivty VBG pH VBG pCO2 VBG pO2 VBG HCO3 VBG O2 Saturation VBG Base Excess Sodium Potassium Chloride Carbon Dioxide Anion Gap BUN Creatinine Estim Creat Clear Calc Estimated GFR POC Glucose 123 H 130 H 136 H Random Glucose Osmolality Lactic Acid Calcium Phosphorus Magnesium Total Bilirubin Direct Bilirubin AST ALT Alkaline Phosphatase Ammonia Total Creatine Kinase Troponin I High Sens C-Reactive Protein B-Natriuretic Peptide Total Protein Albumin Triglycerides Lipase TSH Hold Green Top Urine Color Urine Appearance Urine pH Ur Specific [place] Urine Protein Urine Glucose (UA) Urine Ketones Urine Blood Urine Nitrite Ur Leukocyte Esterase CSF Tube Number CSF Volume CSF Appearance CSF Color CSF WBC CSF RBC CSF Neutrophils CSF Lymphocytes CSF Monocytes % CSF Appearance (b) CSF Total Protein CSF C.neoform/gat PCR CSF CMV DNA (PCR) CSF Enterovirus (PCR) CSF E. coli K1 (PCR) CSF H. influenzae (PCR) CSF HSV I (PCR) CSF HSV II (PCR) CSF HHV 6 (PCR) CSF L.monocytogenes PCR CSF N. meningitidis PCR CSF Parechovirus (PCR) CSF S. agalactiae (PCR) CSF S. pneumoniae (PCR) CSF VZV (PCR) Nasal Screen MRSA (PCR) Nasal S. aureus Screen Nasal MRSA/S.aureus Interp Salicylates Urine Opiates Screen Ur Buprenorphine Scrn Ur Oxycodone Screen Urine Methadone Screen Urine Fentanyl Screen Acetaminophen Ur Barbiturates Screen Lamotrigine Ur Phencyclidine Scrn Ur Amphetamines Screen U Benzodiazepines Scrn Urine Cocaine Screen U Marijuana (THC) Screen Ethyl Alcohol Influenza Type A (PCR) Influenza Type B (PCR) RSV RNA Qual (PCR) SARS-CoV-2 RNA (RT-PCR) 12/22/24 12/23/24 12/23/24 20:40 05:52 06:27 WBC RBC Hgb Hct MCV MCH MCHC RDW Plt Count MPV Immature Gran % (Auto) Neut % (Auto) Lymph % (Auto) [place] % (Auto) Eos % (Auto) Baso % (Auto) Lymph # (Auto) [place] # (Auto) Eos # (Auto) Baso # (Auto) Abs Immat Gran (auto) Absolute Neuts (auto) Absolute Nucleated RBC Nucleated RBC % (auto) Hold Purple Top PT INR D-Dimer High Sensitivty VBG pH VBG pCO2 VBG pO2 VBG HCO3 VBG O2 Saturation VBG Base Excess Sodium 137 Potassium Chloride Carbon Dioxide Anion Gap BUN Creatinine Estim Creat Clear Calc Estimated GFR POC Glucose 129 H 138 H Random Glucose Osmolality Lactic Acid Calcium Phosphorus Magnesium Total Bilirubin Direct Bilirubin AST ALT Alkaline Phosphatase Ammonia Total Creatine Kinase Troponin I High Sens C-Reactive Protein B-Natriuretic Peptide Total Protein Albumin Triglycerides Lipase TSH Hold Green Top Urine Color Urine Appearance Urine pH Ur Specific [place] Urine Protein Urine Glucose (UA) Urine Ketones Urine Blood Urine Nitrite Ur Leukocyte Esterase CSF Tube Number CSF Volume CSF Appearance CSF Color CSF WBC CSF RBC CSF Neutrophils CSF Lymphocytes CSF Monocytes % CSF Appearance (b) CSF Total Protein CSF C.neoform/gat PCR CSF CMV DNA (PCR) CSF Enterovirus (PCR) CSF E. coli K1 (PCR) CSF H. influenzae (PCR) CSF HSV I (PCR) CSF HSV II (PCR) CSF HHV 6 (PCR) CSF L.monocytogenes PCR CSF N. meningitidis PCR CSF Parechovirus (PCR) CSF S. agalactiae (PCR) CSF S. pneumoniae (PCR) CSF VZV (PCR) Nasal Screen MRSA (PCR) Nasal S. aureus Screen Nasal MRSA/S.aureus Interp Salicylates Urine Opiates Screen Ur Buprenorphine Scrn Ur Oxycodone Screen Urine Methadone Screen Urine Fentanyl Screen Acetaminophen Ur Barbiturates Screen Lamotrigine Ur Phencyclidine Scrn Ur Amphetamines Screen U Benzodiazepines Scrn Urine Cocaine Screen U Marijuana (THC) Screen Ethyl Alcohol Influenza Type A (PCR) Influenza Type B (PCR) RSV RNA Qual (PCR) SARS-CoV-2 RNA (RT-PCR) 12/23/24 12/23/24 12/23/24 06:27 06:27 06:27 WBC RBC Hgb Hct MCV MCH MCHC RDW Plt Count MPV Immature Gran % (Auto) Neut % (Auto) Lymph % (Auto) [place] % (Auto) Eos % (Auto) Baso % (Auto) Lymph # (Auto) [place] # (Auto) Eos # (Auto) Baso # (Auto) Abs Immat Gran (auto) Absolute Neuts (auto) Absolute Nucleated RBC Nucleated RBC % (auto) Hold Purple Top PT INR D-Dimer High Sensitivty VBG pH VBG pCO2 VBG pO2 VBG HCO3 VBG O2 Saturation VBG Base Excess Sodium 136 Potassium 3.8 3.8 Chloride 109 H 109 H Carbon Dioxide 20 L Anion Gap BUN Creatinine Estim Creat Clear Calc Estimated GFR POC Glucose Random Glucose Osmolality Lactic Acid Calcium Phosphorus Magnesium Total Bilirubin Direct Bilirubin AST ALT Alkaline Phosphatase Ammonia Total Creatine Kinase Troponin I High Sens C-Reactive Protein B-Natriuretic Peptide Total Protein Albumin Triglycerides Lipase TSH Hold Green Top Urine Color Urine Appearance Urine pH Ur Specific [place] Urine Protein Urine Glucose (UA) Urine Ketones Urine Blood Urine Nitrite Ur Leukocyte Esterase CSF Tube Number CSF Volume CSF Appearance CSF Color CSF WBC CSF RBC CSF Neutrophils CSF Lymphocytes CSF Monocytes % CSF Appearance (b) CSF Total Protein CSF C.neoform/gat PCR CSF CMV DNA (PCR) CSF Enterovirus (PCR) CSF E. coli K1 (PCR) CSF H. influenzae (PCR) CSF HSV I (PCR) CSF HSV II (PCR) CSF HHV 6 (PCR) CSF L.monocytogenes PCR CSF N. meningitidis PCR CSF Parechovirus (PCR) CSF S. agalactiae (PCR) CSF S. pneumoniae (PCR) CSF VZV (PCR) Nasal Screen MRSA (PCR) Nasal S. aureus Screen Nasal MRSA/S.aureus Interp Salicylates Urine Opiates Screen Ur Buprenorphine Scrn Ur Oxycodone Screen Urine Methadone Screen Urine Fentanyl Screen Acetaminophen Ur Barbiturates Screen Lamotrigine Ur Phencyclidine Scrn Ur Amphetamines Screen U Benzodiazepines Scrn Urine Cocaine Screen U Marijuana (THC) Screen Ethyl Alcohol Influenza Type A (PCR) Influenza Type B (PCR) RSV RNA Qual (PCR) SARS-CoV-2 RNA (RT-PCR) 12/23/24 12/23/24 12/23/24 06:27 06:27 06:27 WBC RBC Hgb Hct MCV MCH MCHC RDW Plt Count MPV Immature Gran % (Auto) Neut % (Auto) Lymph % (Auto) [place] % (Auto) Eos % (Auto) Baso % (Auto) Lymph # (Auto) [place] # (Auto) Eos # (Auto) Baso # (Auto) Abs Immat Gran (auto) Absolute Neuts (auto) Absolute Nucleated RBC Nucleated RBC % (auto) Hold Purple Top PT INR D-Dimer High Sensitivty VBG pH VBG pCO2 VBG pO2 VBG HCO3 VBG O2 Saturation VBG Base Excess Sodium Potassium Chloride Carbon Dioxide 20 L Anion Gap 12 11 L BUN 11 9 Creatinine 0.70 Estim Creat Clear Calc Estimated GFR POC Glucose Random Glucose Osmolality Lactic Acid Calcium Phosphorus Magnesium Total Bilirubin Direct Bilirubin AST ALT Alkaline Phosphatase Ammonia Total Creatine Kinase Troponin I High Sens C-Reactive Protein B-Natriuretic Peptide Total Protein Albumin Triglycerides Lipase TSH Hold Green Top Urine Color Urine Appearance Urine pH Ur Specific [place] Urine Protein Urine Glucose (UA) Urine Ketones Urine Blood Urine Nitrite Ur Leukocyte Esterase CSF Tube Number CSF Volume CSF Appearance CSF Color CSF WBC CSF RBC CSF Neutrophils CSF Lymphocytes CSF Monocytes % CSF Appearance (b) CSF Total Protein CSF C.neoform/gat PCR CSF CMV DNA (PCR) CSF Enterovirus (PCR) CSF E. coli K1 (PCR) CSF H. influenzae (PCR) CSF HSV I (PCR) CSF HSV II (PCR) CSF HHV 6 (PCR) CSF L.monocytogenes PCR CSF N. meningitidis PCR CSF Parechovirus (PCR) CSF S. agalactiae (PCR) CSF S. pneumoniae (PCR) CSF VZV (PCR) Nasal Screen MRSA (PCR) Nasal S. aureus Screen Nasal MRSA/S.aureus Interp Salicylates Urine Opiates Screen Ur Buprenorphine Scrn Ur Oxycodone Screen Urine Methadone Screen Urine Fentanyl Screen Acetaminophen Ur Barbiturates Screen Lamotrigine Ur Phencyclidine Scrn Ur Amphetamines Screen U Benzodiazepines Scrn Urine Cocaine Screen U Marijuana (THC) Screen Ethyl Alcohol Influenza Type A (PCR) Influenza Type B (PCR) RSV RNA Qual (PCR) SARS-CoV-2 RNA (RT-PCR) 12/23/24 12/23/24 12/23/24 06:27 06:27 06:27 WBC RBC Hgb Hct MCV MCH MCHC RDW Plt Count MPV Immature Gran % (Auto) Neut % (Auto) Lymph % (Auto) [place] % (Auto) Eos % (Auto) Baso % (Auto) Lymph # (Auto) [place] # (Auto) Eos # (Auto) Baso # (Auto) Abs Immat Gran (auto) Absolute Neuts (auto) Absolute Nucleated RBC Nucleated RBC % (auto) Hold Purple Top PT INR D-Dimer High Sensitivty VBG pH VBG pCO2 VBG pO2 VBG HCO3 VBG O2 Saturation VBG Base Excess Sodium Potassium Chloride Carbon Dioxide Anion Gap BUN Creatinine 0.68 Estim Creat Clear Calc 178.4 183.6 Estimated GFR > 60 > 60 POC Glucose Random Glucose 143 H Osmolality Lactic Acid Calcium Phosphorus Magnesium Total Bilirubin Direct Bilirubin AST ALT Alkaline Phosphatase Ammonia Total Creatine Kinase Troponin I High Sens C-Reactive Protein B-Natriuretic Peptide Total Protein Albumin Triglycerides Lipase TSH Hold Green Top Urine Color Urine Appearance Urine pH Ur Specific [place] Urine Protein Urine Glucose (UA) Urine Ketones Urine Blood Urine Nitrite Ur Leukocyte Esterase CSF Tube Number CSF Volume CSF Appearance CSF Color CSF WBC CSF RBC CSF Neutrophils CSF Lymphocytes CSF Monocytes % CSF Appearance (b) CSF Total Protein CSF C.neoform/gat PCR CSF CMV DNA (PCR) CSF Enterovirus (PCR) CSF E. coli K1 (PCR) CSF H. influenzae (PCR) CSF HSV I (PCR) CSF HSV II (PCR) CSF HHV 6 (PCR) CSF L.monocytogenes PCR CSF N. meningitidis PCR CSF Parechovirus (PCR) CSF S. agalactiae (PCR) CSF S. pneumoniae (PCR) CSF VZV (PCR) Nasal Screen MRSA (PCR) Nasal S. aureus Screen Nasal MRSA/S.aureus Interp Salicylates Urine Opiates Screen Ur Buprenorphine Scrn Ur Oxycodone Screen Urine Methadone Screen Urine Fentanyl Screen Acetaminophen Ur Barbiturates Screen Lamotrigine Ur Phencyclidine Scrn Ur Amphetamines Screen U Benzodiazepines Scrn Urine Cocaine Screen U Marijuana (THC) Screen Ethyl Alcohol Influenza Type A (PCR) Influenza Type B (PCR) RSV RNA Qual (PCR) SARS-CoV-2 RNA (RT-PCR) 12/23/24 12/23/24 12/23/24 06:27 06:27 10:43 WBC RBC Hgb Hct MCV MCH MCHC RDW Plt Count MPV Immature Gran % (Auto) Neut % (Auto) Lymph % (Auto) [place] % (Auto) Eos % (Auto) Baso % (Auto) Lymph # (Auto) [place] # (Auto) Eos # (Auto) Baso # (Auto) Abs Immat Gran (auto) Absolute Neuts (auto) Absolute Nucleated RBC Nucleated RBC % (auto) Hold Purple Top PT INR D-Dimer High Sensitivty VBG pH VBG pCO2 VBG pO2 VBG HCO3 VBG O2 Saturation VBG Base Excess Sodium Potassium Chloride Carbon Dioxide Anion Gap BUN Creatinine Estim Creat Clear Calc Estimated GFR POC Glucose 133 H Random Glucose 143 H Osmolality Lactic Acid Calcium 8.9 8.9 Phosphorus 3.1 Magnesium 2.0 Total Bilirubin Direct Bilirubin AST ALT Alkaline Phosphatase Ammonia Total Creatine Kinase Troponin I High Sens C-Reactive Protein B-Natriuretic Peptide Total Protein Albumin 3.6 Triglycerides Lipase TSH Hold Green Top Urine Color Urine Appearance Urine pH Ur Specific [place] Urine Protein Urine Glucose (UA) Urine Ketones Urine Blood Urine Nitrite Ur Leukocyte Esterase CSF Tube Number CSF Volume CSF Appearance CSF Color CSF WBC CSF RBC CSF Neutrophils CSF Lymphocytes CSF Monocytes % CSF Appearance (b) CSF Total Protein CSF C.neoform/gat PCR CSF CMV DNA (PCR) CSF Enterovirus (PCR) CSF E. coli K1 (PCR) CSF H. influenzae (PCR) CSF HSV I (PCR) CSF HSV II (PCR) CSF HHV 6 (PCR) CSF L.monocytogenes PCR CSF N. meningitidis PCR CSF Parechovirus (PCR) CSF S. agalactiae (PCR) CSF S. pneumoniae (PCR) CSF VZV (PCR) Nasal Screen MRSA (PCR) Nasal S. aureus Screen Nasal MRSA/S.aureus Interp Salicylates Urine Opiates Screen Ur Buprenorphine Scrn Ur Oxycodone Screen Urine Methadone Screen Urine Fentanyl Screen Acetaminophen Ur Barbiturates Screen Lamotrigine Ur Phencyclidine Scrn Ur Amphetamines Screen U Benzodiazepines Scrn Urine Cocaine Screen U Marijuana (THC) Screen Ethyl Alcohol Influenza Type A (PCR) Influenza Type B (PCR) RSV RNA Qual (PCR) SARS-CoV-2 RNA (RT-PCR) 12/23/24 12/23/24 12/24/24 16:01 22:11 04:38 WBC RBC Hgb Hct MCV MCH MCHC RDW Plt Count MPV Immature Gran % (Auto) Neut % (Auto) Lymph % (Auto) [place] % (Auto) Eos % (Auto) Baso % (Auto) Lymph # (Auto) [place] # (Auto) Eos # (Auto) Baso # (Auto) Abs Immat Gran (auto) Absolute Neuts (auto) Absolute Nucleated RBC Nucleated RBC % (auto) Hold Purple Top PT INR D-Dimer High Sensitivty VBG pH VBG pCO2 VBG pO2 VBG HCO3 VBG O2 Saturation VBG Base Excess Sodium Potassium Chloride Carbon Dioxide Anion Gap BUN Creatinine Estim Creat Clear Calc Estimated GFR POC Glucose 129 H 108 153 H Random Glucose Osmolality Lactic Acid Calcium Phosphorus Magnesium Total Bilirubin Direct Bilirubin AST ALT Alkaline Phosphatase Ammonia Total Creatine Kinase Troponin I High Sens C-Reactive Protein B-Natriuretic Peptide Total Protein Albumin Triglycerides Lipase TSH Hold Green Top Urine Color Urine Appearance Urine pH Ur Specific [place] Urine Protein Urine Glucose (UA) Urine Ketones Urine Blood Urine Nitrite Ur Leukocyte Esterase CSF Tube Number CSF Volume CSF Appearance CSF Color CSF WBC CSF RBC CSF Neutrophils CSF Lymphocytes CSF Monocytes % CSF Appearance (b) CSF Total Protein CSF C.neoform/gat PCR CSF CMV DNA (PCR) CSF Enterovirus (PCR) CSF E. coli K1 (PCR) CSF H. influenzae (PCR) CSF HSV I (PCR) CSF HSV II (PCR) CSF HHV 6 (PCR) CSF L.monocytogenes PCR CSF N. meningitidis PCR CSF Parechovirus (PCR) CSF S. agalactiae (PCR) CSF S. pneumoniae (PCR) CSF VZV (PCR) Nasal Screen MRSA (PCR) Nasal S. aureus Screen Nasal MRSA/S.aureus Interp Salicylates Urine Opiates Screen Ur Buprenorphine Scrn Ur Oxycodone Screen Urine Methadone Screen Urine Fentanyl Screen Acetaminophen Ur Barbiturates Screen Lamotrigine Ur Phencyclidine Scrn Ur Amphetamines Screen U Benzodiazepines Scrn Urine Cocaine Screen U Marijuana (THC) Screen Ethyl Alcohol Influenza Type A (PCR) Influenza Type B (PCR) RSV RNA Qual (PCR) SARS-CoV-2 RNA (RT-PCR) 12/24/24 12/24/24 12/24/24 10:23 11:28 11:36 WBC 10.5 RBC 4.56 L Hgb 14.9 Hct 41.5 L MCV 91.0 MCH 32.7 MCHC 35.9 RDW 12.8 Plt Count 225 MPV 10.9 Immature Gran % (Auto) 0.4 Neut % (Auto) 74.6 H Lymph % (Auto) 16.6 L [place] % (Auto) 6.2 Eos % (Auto) 1.8 Baso % (Auto) 0.4 Lymph # (Auto) 1.7 [place] # (Auto) 0.7 Eos # (Auto) 0.2 Baso # (Auto) 0.0 Abs Immat Gran (auto) 0.04 H Absolute Neuts (auto) 7.8 Absolute Nucleated RBC 0.000 Nucleated RBC % (auto) 0.0 Hold Purple Top PT INR D-Dimer High Sensitivty VBG pH VBG pCO2 VBG pO2 VBG HCO3 VBG O2 Saturation VBG Base Excess Sodium 138 Potassium 3.6 Chloride 107 Carbon Dioxide 24 Anion Gap 11 L BUN 7 L Creatinine 0.76 Estim Creat Clear Calc 164.3 Estimated GFR > 60 POC Glucose 167 H Random Glucose 157 H Osmolality Lactic Acid Calcium 9.0 Phosphorus 2.5 L Magnesium 1.9 Total Bilirubin Direct Bilirubin AST ALT Alkaline Phosphatase Ammonia Total Creatine Kinase Troponin I High Sens C-Reactive Protein B-Natriuretic Peptide Total Protein Albumin 3.7 Triglycerides 254 H Lipase TSH Hold Green Top Urine Color Urine Appearance Urine pH Ur Specific [place] Urine Protein Urine Glucose (UA) Urine Ketones Urine Blood Urine Nitrite Ur Leukocyte Esterase CSF Tube Number CSF Volume CSF Appearance CSF Color CSF WBC CSF RBC CSF Neutrophils CSF Lymphocytes CSF Monocytes % CSF Appearance (b) CSF Total Protein CSF C.neoform/gat PCR CSF CMV DNA (PCR) CSF Enterovirus (PCR) CSF E. coli K1 (PCR) CSF H. influenzae (PCR) CSF HSV I (PCR) CSF HSV II (PCR) CSF HHV 6 (PCR) CSF L.monocytogenes PCR CSF N. meningitidis PCR CSF Parechovirus (PCR) CSF S. agalactiae (PCR) CSF S. pneumoniae (PCR) CSF VZV (PCR) Nasal Screen MRSA (PCR) Nasal S. aureus Screen Nasal MRSA/S.aureus Interp Salicylates Urine Opiates Screen Ur Buprenorphine Scrn Ur Oxycodone Screen Urine Methadone Screen Urine Fentanyl Screen Acetaminophen Ur Barbiturates Screen Lamotrigine Ur Phencyclidine Scrn Ur Amphetamines Screen U Benzodiazepines Scrn Urine Cocaine Screen U Marijuana (THC) Screen Ethyl Alcohol Influenza Type A (PCR) Influenza Type B (PCR) RSV RNA Qual (PCR) SARS-CoV-2 RNA (RT-PCR) 12/24/24 12/24/24 12/25/24 17:14 22:38 03:58 WBC RBC Hgb Hct MCV MCH MCHC RDW Plt Count MPV Immature Gran % (Auto) Neut % (Auto) Lymph % (Auto) [place] % (Auto) Eos % (Auto) Baso % (Auto) Lymph # (Auto) [place] # (Auto) Eos # (Auto) Baso # (Auto) Abs Immat Gran (auto) Absolute Neuts (auto) Absolute Nucleated RBC Nucleated RBC % (auto) Hold Purple Top PT INR D-Dimer High Sensitivty VBG pH VBG pCO2 VBG pO2 VBG HCO3 VBG O2 Saturation VBG Base Excess Sodium Potassium Chloride Carbon Dioxide Anion Gap BUN Creatinine Estim Creat Clear Calc Estimated GFR POC Glucose 142 H 143 H 166 H Random Glucose Osmolality Lactic Acid Calcium Phosphorus Magnesium Total Bilirubin Direct Bilirubin AST ALT Alkaline Phosphatase Ammonia Total Creatine Kinase Troponin I High Sens C-Reactive Protein B-Natriuretic Peptide Total Protein Albumin Triglycerides Lipase TSH Hold Green Top Urine Color Urine Appearance Urine pH Ur Specific [place] Urine Protein Urine Glucose (UA) Urine Ketones Urine Blood Urine Nitrite Ur Leukocyte Esterase CSF Tube Number CSF Volume CSF Appearance CSF Color CSF WBC CSF RBC CSF Neutrophils CSF Lymphocytes CSF Monocytes % CSF Appearance (b) CSF Total Protein CSF C.neoform/gat PCR CSF CMV DNA (PCR) CSF Enterovirus (PCR) CSF E. coli K1 (PCR) CSF H. influenzae (PCR) CSF HSV I (PCR) CSF HSV II (PCR) CSF HHV 6 (PCR) CSF L.monocytogenes PCR CSF N. meningitidis PCR CSF Parechovirus (PCR) CSF S. agalactiae (PCR) CSF S. pneumoniae (PCR) CSF VZV (PCR) Nasal Screen MRSA (PCR) Nasal S. aureus Screen Nasal MRSA/S.aureus Interp Salicylates Urine Opiates Screen Ur Buprenorphine Scrn Ur Oxycodone Screen Urine Methadone Screen Urine Fentanyl Screen Acetaminophen Ur Barbiturates Screen Lamotrigine Ur Phencyclidine Scrn Ur Amphetamines Screen U Benzodiazepines Scrn Urine Cocaine Screen U Marijuana (THC) Screen Ethyl Alcohol Influenza Type A (PCR) Influenza Type B (PCR) RSV RNA Qual (PCR) SARS-CoV-2 RNA (RT-PCR) 12/25/24 12/25/24 12/25/24 06:49 09:51 15:52 WBC RBC Hgb Hct MCV MCH MCHC RDW Plt Count MPV Immature Gran % (Auto) Neut % (Auto) Lymph % (Auto) [place] % (Auto) Eos % (Auto) Baso % (Auto) Lymph # (Auto) [place] # (Auto) Eos # (Auto) Baso # (Auto) Abs Immat Gran (auto) Absolute Neuts (auto) Absolute Nucleated RBC Nucleated RBC % (auto) Hold Purple Top SEE NOTE PT INR D-Dimer High Sensitivty VBG pH VBG pCO2 VBG pO2 VBG HCO3 VBG O2 Saturation VBG Base Excess Sodium 138 Potassium 4.0 Chloride 106 Carbon Dioxide 23 Anion Gap 13 BUN 8 L Creatinine 0.75 Estim Creat Clear Calc 166.5 Estimated GFR > 60 POC Glucose 181 H 194 H Random Glucose 165 H Osmolality Lactic Acid Calcium 9.5 Phosphorus 3.3 Magnesium 2.1 Total Bilirubin Direct Bilirubin AST ALT Alkaline Phosphatase Ammonia Total Creatine Kinase Troponin I High Sens C-Reactive Protein B-Natriuretic Peptide Total Protein Albumin 3.9 Triglycerides Lipase TSH Hold Green Top Urine Color Urine Appearance Urine pH Ur Specific [place] Urine Protein Urine Glucose (UA) Urine Ketones Urine Blood Urine Nitrite Ur Leukocyte Esterase CSF Tube Number CSF Volume CSF Appearance CSF Color CSF WBC CSF RBC CSF Neutrophils CSF Lymphocytes CSF Monocytes % CSF Appearance (b) CSF Total Protein CSF C.neoform/gat PCR CSF CMV DNA (PCR) CSF Enterovirus (PCR) CSF E. coli K1 (PCR) CSF H. influenzae (PCR) CSF HSV I (PCR) CSF HSV II (PCR) CSF HHV 6 (PCR) CSF L.monocytogenes PCR CSF N. meningitidis PCR CSF Parechovirus (PCR) CSF S. agalactiae (PCR) CSF S. pneumoniae (PCR) CSF VZV (PCR) Nasal Screen MRSA (PCR) Nasal S. aureus Screen Nasal MRSA/S.aureus Interp Salicylates Urine Opiates Screen Ur Buprenorphine Scrn Ur Oxycodone Screen Urine Methadone Screen Urine Fentanyl Screen Acetaminophen Ur Barbiturates Screen Lamotrigine Ur Phencyclidine Scrn Ur Amphetamines Screen U Benzodiazepines Scrn Urine Cocaine Screen U Marijuana (THC) Screen Ethyl Alcohol Influenza Type A (PCR) Influenza Type B (PCR) RSV RNA Qual (PCR) SARS-CoV-2 RNA (RT-PCR) 12/25/24 12/26/24 12/26/24 23:54 04:30 08:55 WBC RBC Hgb Hct MCV MCH MCHC RDW Plt Count MPV Immature Gran % (Auto) Neut % (Auto) Lymph % (Auto) [place] % (Auto) Eos % (Auto) Baso % (Auto) Lymph # (Auto) [place] # (Auto) Eos # (Auto) Baso # (Auto) Abs Immat Gran (auto) Absolute Neuts (auto) Absolute Nucleated RBC Nucleated RBC % (auto) Hold Purple Top PT INR D-Dimer High Sensitivty VBG pH VBG pCO2 VBG pO2 VBG HCO3 VBG O2 Saturation VBG Base Excess Sodium 135 Potassium 4.5 Chloride 106 Carbon Dioxide 22 Anion Gap 12 BUN 10 Creatinine 0.76 Estim Creat Clear Calc 164.3 Estimated GFR > 60 POC Glucose 175 H 158 H Random Glucose 199 H Osmolality Lactic Acid Calcium 9.8 Phosphorus 3.3 Magnesium 1.9 Total Bilirubin Direct Bilirubin AST ALT Alkaline Phosphatase Ammonia Total Creatine Kinase Troponin I High Sens C-Reactive Protein B-Natriuretic Peptide Total Protein Albumin 4.2 Triglycerides Lipase TSH Hold Green Top Urine Color Urine Appearance Urine pH Ur Specific [place] Urine Protein Urine Glucose (UA) Urine Ketones Urine Blood Urine Nitrite Ur Leukocyte Esterase CSF Tube Number CSF Volume CSF Appearance CSF Color CSF WBC CSF RBC CSF Neutrophils CSF Lymphocytes CSF Monocytes % CSF Appearance (b) CSF Total Protein CSF C.neoform/gat PCR CSF CMV DNA (PCR) CSF Enterovirus (PCR) CSF E. coli K1 (PCR) CSF H. influenzae (PCR) CSF HSV I (PCR) CSF HSV II (PCR) CSF HHV 6 (PCR) CSF L.monocytogenes PCR CSF N. meningitidis PCR CSF Parechovirus (PCR) CSF S. agalactiae (PCR) CSF S. pneumoniae (PCR) CSF VZV (PCR) Nasal Screen MRSA (PCR) Nasal S. aureus Screen Nasal MRSA/S.aureus Interp Salicylates Urine Opiates Screen Ur Buprenorphine Scrn Ur Oxycodone Screen Urine Methadone Screen Urine Fentanyl Screen Acetaminophen Ur Barbiturates Screen Lamotrigine Ur Phencyclidine Scrn Ur Amphetamines Screen U Benzodiazepines Scrn Urine Cocaine Screen U Marijuana (THC) Screen Ethyl Alcohol Influenza Type A (PCR) Influenza Type B (PCR) RSV RNA Qual (PCR) SARS-CoV-2 RNA (RT-PCR) 12/27/24 12/28/24 12/29/24 06:27 06:56 05:51 WBC RBC Hgb Hct MCV MCH MCHC RDW Plt Count MPV Immature Gran % (Auto) Neut % (Auto) Lymph % (Auto) [place] % (Auto) Eos % (Auto) Baso % (Auto) Lymph # (Auto) [place] # (Auto) Eos # (Auto) Baso # (Auto) Abs Immat Gran (auto) Absolute Neuts (auto) Absolute Nucleated RBC Nucleated RBC % (auto) Hold Purple Top SEE NOTE SEE NOTE SEE NOTE PT INR D-Dimer High Sensitivty VBG pH VBG pCO2 VBG pO2 VBG HCO3 VBG O2 Saturation VBG Base Excess Sodium 135 135 134 L Potassium 4.5 4.5 4.3 Chloride 103 100 101 Carbon Dioxide 23 22 22 Anion Gap 14 18 15 BUN 11 13 15 Creatinine 0.78 0.75 0.82 Estim Creat Clear Calc 160.1 166.5 152.3 Estimated GFR > 60 > 60 > 60 POC Glucose Random Glucose 202 H 228 H 287 H Osmolality Lactic Acid Calcium 9.9 10.2 9.9 Phosphorus 3.2 2.9 4.1 Magnesium 2.0 2.0 2.0 Total Bilirubin Direct Bilirubin AST ALT Alkaline Phosphatase Ammonia Total Creatine Kinase Troponin I High Sens C-Reactive Protein B-Natriuretic Peptide Total Protein Albumin 4.2 4.5 4.0 Triglycerides 267 H Lipase TSH Hold Green Top Urine Color Urine Appearance Urine pH Ur Specific [place] Urine Protein Urine Glucose (UA) Urine Ketones Urine Blood Urine Nitrite Ur Leukocyte Esterase CSF Tube Number CSF Volume CSF Appearance CSF Color CSF WBC CSF RBC CSF Neutrophils CSF Lymphocytes CSF Monocytes % CSF Appearance (b) CSF Total Protein CSF C.neoform/gat PCR CSF CMV DNA (PCR) CSF Enterovirus (PCR) CSF E. coli K1 (PCR) CSF H. influenzae (PCR) CSF HSV I (PCR) CSF HSV II (PCR) CSF HHV 6 (PCR) CSF L.monocytogenes PCR CSF N. meningitidis PCR CSF Parechovirus (PCR) CSF S. agalactiae (PCR) CSF S. pneumoniae (PCR) CSF VZV (PCR) Nasal Screen MRSA (PCR) Nasal S. aureus Screen Nasal MRSA/S.aureus Interp Salicylates Urine Opiates Screen Ur Buprenorphine Scrn Ur Oxycodone Screen Urine Methadone Screen Urine Fentanyl Screen Acetaminophen Ur Barbiturates Screen Lamotrigine Ur Phencyclidine Scrn Ur Amphetamines Screen U Benzodiazepines Scrn Urine Cocaine Screen U Marijuana (THC) Screen Ethyl Alcohol Influenza Type A (PCR) Influenza Type B (PCR) RSV RNA Qual (PCR) SARS-CoV-2 RNA (RT-PCR) 12/30/24 12/31/24 01/01/25 05:13 05:44 05:35 WBC RBC Hgb Hct MCV MCH MCHC RDW Plt Count MPV Immature Gran % (Auto) Neut % (Auto) Lymph % (Auto) [place] % (Auto) Eos % (Auto) Baso % (Auto) Lymph # (Auto) [place] # (Auto) Eos # (Auto) Baso # (Auto) Abs Immat Gran (auto) Absolute Neuts (auto) Absolute Nucleated RBC Nucleated RBC % (auto) Hold Purple Top SEE NOTE SEE NOTE PT INR D-Dimer High Sensitivty VBG pH VBG pCO2 VBG pO2 VBG HCO3 VBG O2 Saturation VBG Base Excess Sodium 136 135 Potassium 4.3 4.5 Chloride 102 102 Carbon Dioxide 22 23 Anion Gap 16 15 BUN 13 16 Creatinine 0.74 0.72 Estim Creat Clear Calc 168.7 173.4 Estimated GFR > 60 > 60 POC Glucose Random Glucose 255 H 261 H Osmolality Lactic Acid Calcium 9.8 9.9 Phosphorus 3.3 3.8 Magnesium 2.0 2.0 Total Bilirubin Direct Bilirubin AST ALT Alkaline Phosphatase Ammonia Total Creatine Kinase Troponin I High Sens C-Reactive Protein B-Natriuretic Peptide Total Protein Albumin 4.0 4.1 Triglycerides 135 Lipase TSH Hold Green Top Urine Color Urine Appearance Urine pH Ur Specific [place] Urine Protein Urine Glucose (UA) Urine Ketones Urine Blood Urine Nitrite Ur Leukocyte Esterase CSF Tube Number CSF Volume CSF Appearance CSF Color CSF WBC CSF RBC CSF Neutrophils CSF Lymphocytes CSF Monocytes % CSF Appearance (b) CSF Total Protein CSF C.neoform/gat PCR CSF CMV DNA (PCR) CSF Enterovirus (PCR) CSF E. coli K1 (PCR) CSF H. influenzae (PCR) CSF HSV I (PCR) CSF HSV II (PCR) CSF HHV 6 (PCR) CSF L.monocytogenes PCR CSF N. meningitidis PCR CSF Parechovirus (PCR) CSF S. agalactiae (PCR) CSF S. pneumoniae (PCR) CSF VZV (PCR) Nasal Screen MRSA (PCR) Nasal S. aureus Screen Nasal MRSA/S.aureus Interp Salicylates Urine Opiates Screen Ur Buprenorphine Scrn Ur Oxycodone Screen Urine Methadone Screen Urine Fentanyl Screen Acetaminophen Ur Barbiturates Screen Lamotrigine Ur Phencyclidine Scrn Ur Amphetamines Screen U Benzodiazepines Scrn Urine Cocaine Screen U Marijuana (THC) Screen Ethyl Alcohol Influenza Type A (PCR) Influenza Type B (PCR) RSV RNA Qual (PCR) SARS-CoV-2 RNA (RT-PCR) 01/01/25 01/01/25 01/02/25 06:13 08:36 05:56 WBC RBC Hgb Hct MCV MCH MCHC RDW Plt Count MPV Immature Gran % (Auto) Neut % (Auto) Lymph % (Auto) [place] % (Auto) Eos % (Auto) Baso % (Auto) Lymph # (Auto) [place] # (Auto) Eos # (Auto) Baso # (Auto) Abs Immat Gran (auto) Absolute Neuts (auto) Absolute Nucleated RBC Nucleated RBC % (auto) Hold Purple Top SEE NOTE PT INR D-Dimer High Sensitivty VBG pH VBG pCO2 VBG pO2 VBG HCO3 VBG O2 Saturation VBG Base Excess Sodium 136 137 Potassium 5.0 Chloride 103 Carbon Dioxide 25 Anion Gap 13 BUN 15 Creatinine 0.74 Estim Creat Clear Calc 168.7 Estimated GFR > 60 POC Glucose Random Glucose 273 H Osmolality Lactic Acid Calcium 9.8 Phosphorus 3.3 Magnesium 2.0 Total Bilirubin Direct Bilirubin AST ALT Alkaline Phosphatase Ammonia Total Creatine Kinase Troponin I High Sens C-Reactive Protein B-Natriuretic Peptide Total Protein Albumin 4.2 Triglycerides 286 H Lipase TSH Hold Green Top Urine Color Urine Appearance Urine pH Ur Specific [place] Urine Protein Urine Glucose (UA) Urine Ketones Urine Blood Urine Nitrite Ur Leukocyte Esterase CSF Tube Number CSF Volume CSF Appearance CSF Color CSF WBC CSF RBC CSF Neutrophils CSF Lymphocytes CSF Monocytes % CSF Appearance (b) CSF Total Protein CSF C.neoform/gat PCR CSF CMV DNA (PCR) CSF Enterovirus (PCR) CSF E. coli K1 (PCR) CSF H. influenzae (PCR) CSF HSV I (PCR) CSF HSV II (PCR) CSF HHV 6 (PCR) CSF L.monocytogenes PCR CSF N. meningitidis PCR CSF Parechovirus (PCR) CSF S. agalactiae (PCR) CSF S. pneumoniae (PCR) CSF VZV (PCR) Nasal Screen MRSA (PCR) Nasal S. aureus Screen Nasal MRSA/S.aureus Interp Salicylates Urine Opiates Screen Ur Buprenorphine Scrn Ur Oxycodone Screen Urine Methadone Screen Urine Fentanyl Screen Acetaminophen Ur Barbiturates Screen Lamotrigine Ur Phencyclidine Scrn Ur Amphetamines Screen U Benzodiazepines Scrn Urine Cocaine Screen U Marijuana (THC) Screen Ethyl Alcohol Influenza Type A (PCR) Influenza Type B (PCR) RSV RNA Qual (PCR) SARS-CoV-2 RNA (RT-PCR) 01/02/25 01/02/25 01/02/25 05:56 05:56 05:56 WBC RBC Hgb Hct MCV MCH MCHC RDW Plt Count MPV Immature Gran % (Auto) Neut % (Auto) Lymph % (Auto) [place] % (Auto) Eos % (Auto) Baso % (Auto) Lymph # (Auto) [place] # (Auto) Eos # (Auto) Baso # (Auto) Abs Immat Gran (auto) Absolute Neuts (auto) Absolute Nucleated RBC Nucleated RBC % (auto) Hold Purple Top PT INR D-Dimer High Sensitivty VBG pH VBG pCO2 VBG pO2 VBG HCO3 VBG O2 Saturation VBG Base Excess Sodium Cancelled Potassium 4.4 Cancelled Chloride 103 Cancelled Carbon Dioxide 24 Anion Gap BUN Creatinine Estim Creat Clear Calc Estimated GFR POC Glucose Random Glucose Osmolality Lactic Acid Calcium Phosphorus Magnesium Total Bilirubin Direct Bilirubin AST ALT Alkaline Phosphatase Ammonia Total Creatine Kinase Troponin I High Sens C-Reactive Protein B-Natriuretic Peptide Total Protein Albumin Triglycerides Lipase TSH Hold Green Top Urine Color Urine Appearance Urine pH Ur Specific [place] Urine Protein Urine Glucose (UA) Urine Ketones Urine Blood Urine Nitrite Ur Leukocyte Esterase CSF Tube Number CSF Volume CSF Appearance CSF Color CSF WBC CSF RBC CSF Neutrophils CSF Lymphocytes CSF Monocytes % CSF Appearance (b) CSF Total Protein CSF C.neoform/gat PCR CSF CMV DNA (PCR) CSF Enterovirus (PCR) CSF E. coli K1 (PCR) CSF H. influenzae (PCR) CSF HSV I (PCR) CSF HSV II (PCR) CSF HHV 6 (PCR) CSF L.monocytogenes PCR CSF N. meningitidis PCR CSF Parechovirus (PCR) CSF S. agalactiae (PCR) CSF S. pneumoniae (PCR) CSF VZV (PCR) Nasal Screen MRSA (PCR) Nasal S. aureus Screen Nasal MRSA/S.aureus Interp Salicylates Urine Opiates Screen Ur Buprenorphine Scrn Ur Oxycodone Screen Urine Methadone Screen Urine Fentanyl Screen Acetaminophen Ur Barbiturates Screen Lamotrigine Ur Phencyclidine Scrn Ur Amphetamines Screen U Benzodiazepines Scrn Urine Cocaine Screen U Marijuana (THC) Screen Ethyl Alcohol Influenza Type A (PCR) Influenza Type B (PCR) RSV RNA Qual (PCR) SARS-CoV-2 RNA (RT-PCR) 01/02/25 01/02/25 01/02/25 05:56 05:56 05:56 WBC RBC Hgb Hct MCV MCH MCHC RDW Plt Count MPV Immature Gran % (Auto) Neut % (Auto) Lymph % (Auto) [place] % (Auto) Eos % (Auto) Baso % (Auto) Lymph # (Auto) [place] # (Auto) Eos # (Auto) Baso # (Auto) Abs Immat Gran (auto) Absolute Neuts (auto) Absolute Nucleated RBC Nucleated RBC % (auto) Hold Purple Top PT INR D-Dimer High Sensitivty VBG pH VBG pCO2 VBG pO2 VBG HCO3 VBG O2 Saturation VBG Base Excess Sodium Potassium Chloride Carbon Dioxide Cancelled Anion Gap 14 Cancelled BUN 18 H Cancelled Creatinine 0.77 Estim Creat Clear Calc Estimated GFR POC Glucose Random Glucose Osmolality Lactic Acid Calcium Phosphorus Magnesium Total Bilirubin Direct Bilirubin AST ALT Alkaline Phosphatase Ammonia Total Creatine Kinase Troponin I High Sens C-Reactive Protein B-Natriuretic Peptide Total Protein Albumin Triglycerides Lipase TSH Hold Green Top Urine Color Urine Appearance Urine pH Ur Specific [place] Urine Protein Urine Glucose (UA) Urine Ketones Urine Blood Urine Nitrite Ur Leukocyte Esterase CSF Tube Number CSF Volume CSF Appearance CSF Color CSF WBC CSF RBC CSF Neutrophils CSF Lymphocytes CSF Monocytes % CSF Appearance (b) CSF Total Protein CSF C.neoform/gat PCR CSF CMV DNA (PCR) CSF Enterovirus (PCR) CSF E. coli K1 (PCR) CSF H. influenzae (PCR) CSF HSV I (PCR) CSF HSV II (PCR) CSF HHV 6 (PCR) CSF L.monocytogenes PCR CSF N. meningitidis PCR CSF Parechovirus (PCR) CSF S. agalactiae (PCR) CSF S. pneumoniae (PCR) CSF VZV (PCR) Nasal Screen MRSA (PCR) Nasal S. aureus Screen Nasal MRSA/S.aureus Interp Salicylates Urine Opiates Screen Ur Buprenorphine Scrn Ur Oxycodone Screen Urine Methadone Screen Urine Fentanyl Screen Acetaminophen Ur Barbiturates Screen Lamotrigine Ur Phencyclidine Scrn Ur Amphetamines Screen U Benzodiazepines Scrn Urine Cocaine Screen U Marijuana (THC) Screen Ethyl Alcohol Influenza Type A (PCR) Influenza Type B (PCR) RSV RNA Qual (PCR) SARS-CoV-2 RNA (RT-PCR) 01/02/25 01/02/25 01/02/25 05:56 05:56 05:56 WBC RBC Hgb Hct MCV MCH MCHC RDW Plt Count MPV Immature Gran % (Auto) Neut % (Auto) Lymph % (Auto) [place] % (Auto) Eos % (Auto) Baso % (Auto) Lymph # (Auto) [place] # (Auto) Eos # (Auto) Baso # (Auto) Abs Immat Gran (auto) Absolute Neuts (auto) Absolute Nucleated RBC Nucleated RBC % (auto) Hold Purple Top PT INR D-Dimer High Sensitivty VBG pH VBG pCO2 VBG pO2 VBG HCO3 VBG O2 Saturation VBG Base Excess Sodium Potassium Chloride Carbon Dioxide Anion Gap BUN Creatinine Cancelled Estim Creat Clear Calc 162.2 Cancelled Estimated GFR > 60 Cancelled POC Glucose Random Glucose 238 H Osmolality Lactic Acid Calcium Phosphorus Magnesium Total Bilirubin Direct Bilirubin AST ALT Alkaline Phosphatase Ammonia Total Creatine Kinase Troponin I High Sens C-Reactive Protein B-Natriuretic Peptide Total Protein Albumin Triglycerides Lipase TSH Hold Green Top Urine Color Urine Appearance Urine pH Ur Specific [place] Urine Protein Urine Glucose (UA) Urine Ketones Urine Blood Urine Nitrite Ur Leukocyte Esterase CSF Tube Number CSF Volume CSF Appearance CSF Color CSF WBC CSF RBC CSF Neutrophils CSF Lymphocytes CSF Monocytes % CSF Appearance (b) CSF Total Protein CSF C.neoform/gat PCR CSF CMV DNA (PCR) CSF Enterovirus (PCR) CSF E. coli K1 (PCR) CSF H. influenzae (PCR) CSF HSV I (PCR) CSF HSV II (PCR) CSF HHV 6 (PCR) CSF L.monocytogenes PCR CSF N. meningitidis PCR CSF Parechovirus (PCR) CSF S. agalactiae (PCR) CSF S. pneumoniae (PCR) CSF VZV (PCR) Nasal Screen MRSA (PCR) Nasal S. aureus Screen Nasal MRSA/S.aureus Interp Salicylates Urine Opiates Screen Ur Buprenorphine Scrn Ur Oxycodone Screen Urine Methadone Screen Urine Fentanyl Screen Acetaminophen Ur Barbiturates Screen Lamotrigine Ur Phencyclidine Scrn Ur Amphetamines Screen U Benzodiazepines Scrn Urine Cocaine Screen U Marijuana (THC) Screen Ethyl Alcohol Influenza Type A (PCR) Influenza Type B (PCR) RSV RNA Qual (PCR) SARS-CoV-2 RNA (RT-PCR) 01/02/25 01/02/25 01/03/25 05:56 05:56 06:32 WBC 9.7 RBC 4.64 Hgb 15.2 Hct 41.9 L MCV 90.3 MCH 32.8 MCHC 36.3 H RDW 12.6 Plt Count 278 MPV 11.3 Immature Gran % (Auto) 0.4 Neut % (Auto) 56.2 Lymph % (Auto) 34.4 [place] % (Auto) 6.6 Eos % (Auto) 2.0 Baso % (Auto) 0.4 Lymph # (Auto) 3.4 [place] # (Auto) 0.6 Eos # (Auto) 0.2 Baso # (Auto) 0.0 Abs Immat Gran (auto) 0.04 H Absolute Neuts (auto) 5.5 Absolute Nucleated RBC 0.000 Nucleated RBC % (auto) 0.0 Hold Purple Top PT INR D-Dimer High Sensitivty VBG pH VBG pCO2 VBG pO2 VBG HCO3 VBG O2 Saturation VBG Base Excess Sodium 138 Potassium 4.2 Chloride 103 Carbon Dioxide 25 Anion Gap 14 BUN 13 Creatinine 0.76 Estim Creat Clear Calc 164.3 Estimated GFR > 60 POC Glucose Random Glucose Cancelled 262 H Osmolality Lactic Acid Calcium 9.8 Cancelled 9.2 D Phosphorus 3.8 3.2 Magnesium 1.9 1.9 Total Bilirubin Direct Bilirubin AST ALT Alkaline Phosphatase Ammonia Total Creatine Kinase Troponin I High Sens C-Reactive Protein B-Natriuretic Peptide Total Protein Albumin 4.0 3.8 Triglycerides 205 H Lipase TSH Hold Green Top Urine Color Urine Appearance Urine pH Ur Specific [place] Urine Protein Urine Glucose (UA) Urine Ketones Urine Blood Urine Nitrite Ur Leukocyte Esterase CSF Tube Number CSF Volume CSF Appearance CSF Color CSF WBC CSF RBC CSF Neutrophils CSF Lymphocytes CSF Monocytes % CSF Appearance (b) CSF Total Protein CSF C.neoform/gat PCR CSF CMV DNA (PCR) CSF Enterovirus (PCR) CSF E. coli K1 (PCR) CSF H. influenzae (PCR) CSF HSV I (PCR) CSF HSV II (PCR) CSF HHV 6 (PCR) CSF L.monocytogenes PCR CSF N. meningitidis PCR CSF Parechovirus (PCR) CSF S. agalactiae (PCR) CSF S. pneumoniae (PCR) CSF VZV (PCR) Nasal Screen MRSA (PCR) Nasal S. aureus Screen Nasal MRSA/S.aureus Interp Salicylates Urine Opiates Screen Ur Buprenorphine Scrn Ur Oxycodone Screen Urine Methadone Screen Urine Fentanyl Screen Acetaminophen Ur Barbiturates Screen Lamotrigine Ur Phencyclidine Scrn Ur Amphetamines Screen U Benzodiazepines Scrn Urine Cocaine Screen U Marijuana (THC) Screen Ethyl Alcohol Influenza Type A (PCR) Influenza Type B (PCR) RSV RNA Qual (PCR) SARS-CoV-2 RNA (RT-PCR) 01/04/25 01/04/25 01/05/25 05:39 06:35 06:02 WBC RBC Hgb Hct MCV MCH MCHC RDW Plt Count MPV Immature Gran % (Auto) Neut % (Auto) Lymph % (Auto) [place] % (Auto) Eos % (Auto) Baso % (Auto) Lymph # (Auto) [place] # (Auto) Eos # (Auto) Baso # (Auto) Abs Immat Gran (auto) Absolute Neuts (auto) Absolute Nucleated RBC Nucleated RBC % (auto) Hold Purple Top SEE NOTE SEE NOTE PT INR D-Dimer High Sensitivty VBG pH VBG pCO2 VBG pO2 VBG HCO3 VBG O2 Saturation VBG Base Excess Sodium 138 137 Potassium 4.2 4.3 Chloride 102 103 Carbon Dioxide 25 24 Anion Gap 15 14 BUN 15 22 H Creatinine 0.81 0.85 Estim Creat Clear Calc 154.2 146.9 Estimated GFR > 60 > 60 POC Glucose Random Glucose 268 H 223 H Osmolality Lactic Acid Calcium 9.7 9.8 Phosphorus 3.9 4.1 Magnesium 2.0 2.1 Total Bilirubin Direct Bilirubin AST ALT Alkaline Phosphatase Ammonia Total Creatine Kinase Troponin I High Sens C-Reactive Protein B-Natriuretic Peptide Total Protein Albumin 4.1 4.2 Triglycerides Lipase TSH Hold Green Top Urine Color Urine Appearance Urine pH Ur Specific [place] Urine Protein Urine Glucose (UA) Urine Ketones Urine Blood Urine Nitrite Ur Leukocyte Esterase CSF Tube Number CSF Volume CSF Appearance CSF Color CSF WBC CSF RBC CSF Neutrophils CSF Lymphocytes CSF Monocytes % CSF Appearance (b) CSF Total Protein CSF C.neoform/gat PCR CSF CMV DNA (PCR) CSF Enterovirus (PCR) CSF E. coli K1 (PCR) CSF H. influenzae (PCR) CSF HSV I (PCR) CSF HSV II (PCR) CSF HHV 6 (PCR) CSF L.monocytogenes PCR CSF N. meningitidis PCR CSF Parechovirus (PCR) CSF S. agalactiae (PCR) CSF S. pneumoniae (PCR) CSF VZV (PCR) Nasal Screen MRSA (PCR) Nasal S. aureus Screen Nasal MRSA/S.aureus Interp Salicylates Urine Opiates Screen Ur Buprenorphine Scrn Ur Oxycodone Screen Urine Methadone Screen Urine Fentanyl Screen Acetaminophen Ur Barbiturates Screen Lamotrigine Ur Phencyclidine Scrn Ur Amphetamines Screen U Benzodiazepines Scrn Urine Cocaine Screen U Marijuana (THC) Screen Ethyl Alcohol Influenza Type A (PCR) Influenza Type B (PCR) RSV RNA Qual (PCR) SARS-CoV-2 RNA (RT-PCR) Narrative Narrative: Patient a little more interactive today. More responsive. Attempting to obey commands Airway Mallampati Class: III TM Dist: >3cm Heart: RRR Lungs: CTAB Assessment and Plan Assessment Anesthesia Assessment: Chart Reviewed Final Anesthetic Review Family History of Problems with Anesthesia: No History of Problems with Anesthesia: No NPO: Yes ASA Class: III Final Preanesthetic Review: No Changes in Pt Med Stat, Meds/Allgs Chart Reviewed, Consent Obtained/Reviewed and Anes Risks/Benef Reviewed Patient Risk: Intermediate Procedure Risk: Intermediate Assessment/Block/Sedation in SS: Assess/Block/Sedation-SS (In PACU) Anesthetic Plan Anesthetic Plan: GA Disposition: Standard PACU
[2025-01-05] MEDS: LORazepam 2 MG/ML VIAL 1 MG IVPUSH ×2 (09:07→09:10)
--- NOTE | 2025-01-05 10:23 | P.PNIM_ITS ---
Subjective Subjective Date of Service: 01/05/25 Interval History: Seen and evaluated this morning Alert and oriented ,speaking fluently Tolerating diet no fever reported Review of Systems Review of Systems: Yes all other systems are reviewed and are negative Physical Exam 2 Vital Signs: Vital Signs: Last Vital Signs Temp 98.5 F 01/05/25 09:35 Pulse 99 01/05/25 09:50 Resp 16 01/05/25 09:50 BP 125/76 01/05/25 09:50 Pulse Ox 95 01/05/25 09:50 O2 Del Method Room Air 01/05/25 09:50 O2 Flow Rate 2 01/05/25 09:07 BMI result Body Mass Index 29.8 Const: Other: Constitutional : alert , not in distress Cardiovascular : no JVP, no lower extremity edema Respiratory : bilateral chest movement, not in resp distress Gastrointestinal: soft, lax, Non tender Skin : Warm, Dry Neurological : Alert and oriented, fluent speech but hesitat sometimes , moving extremities Objective Data Active Medications Acetaminophen (Acetaminophen Supp 650 Mg Supp.Rect) 650 mg FL Q6H PRN PRN Reason: Pain, Mild 1-3,fever,headache Acetaminophen (Acetaminophen 325 Mg Tablet) 650 mg PO Q4H PRN PRN Reason: Pain, Mild 1-3,fever,headache Last Admin: 01/02/25 16:35 Dose: 650 mg Documented By: MEDINA Enoxaparin Sodium (Enoxaparin Sodium 40 Mg/0.4 Ml Syringe) 40 mg SUBCUT Q24H [facility] Last Admin: 01/04/25 22:49 Dose: 40 mg Documented By: BRANDI Nutrition (Parenteral) (Parenteral Nutrition) 1,920 mls @ 80 mls/hr IV .Q24H [facility]; Protocol Last Admin: 01/04/25 21:33 Dose: 80 mls/hr Documented By: BRANDI Lactated Ringer's (Lr) 1,000 mls @ 100 mls/hr IVCONT .Q10H [facility]AD[facility] Lactated Ringer's (Lr) 1,000 mls @ 50 mls/hr IVCONT .Q20H [facility] Naloxone HCl (Naloxone Hcl 0.4 Mg/Ml Vial) 0.04 mg IVPUSH Q5M PRN PRN Reason: Excessive sedation or RR < 8 Naloxone HCl (Naloxone Hcl 0.4 Mg/Ml Vial) 0.04 mg IVPUSH Q5M PRN PRN Reason: Excessive sedation or RR < 8 Nicotine (Nicotine 21 Mg Patch.Td24) 21 mg TRANSDERMA DAILY [facility] Last Admin: 01/04/25 10:34 Dose: Not Given Documented By: LARISA Non-Admin Reason: Patient Refused Nystatin (Nystatin Powder 15 Gm Bottle) 1 appl TOPICAL BID [facility]; Protocol Last Admin: 01/04/25 21:27 Dose: Not Given Documented By: BRANDI Non-Admin Reason: Patient Refused Ondansetron HCl (Ondansetron Hcl 4 Mg/2 Ml Vial) 4 mg IVPUSH Q8H PRN PRN Reason: Nausea and Vomiting Pharmacy Consult (Consult Rx Parenteral Nutrition Ordering) 1 each MISCELLANE DAILY PRN PRN Reason: Consult order Labs 01/03/25 06:32 01/05/25 06:02 Labs: Laboratory Results - last 24 hr 01/05/25 06:02 Hold Purple Top SEE NOTE Anion Gap 14 Estim Creat Clear Calc 146.9 Estimated GFR > 60 Random Glucose 223 H Calcium 9.8 Phosphorus 4.1 Magnesium 2.1 Albumin 4.2 Assessment and Plan (1) Toxic metabolic encephalopathy: Status: Acute (2) Pneumonia: Status: Acute (3) Catatonia: Status: Acute Plan 34M PMH bipolar 1 who [facility] and acute hypoxia Acute metabolic\Toxic encephalopathy likely related to catatonia improved significantly Psychiatry following, continue ECT treatment as scheduled MWF DC PPN Start regular diet Signed his as HCP Acute hypokalemia replaced Sepsis and acute hypoxic respiratory failure secondary to aspiration pneumonia with risk for MRSA given recent hospitalization Sepsis resolved completed 10 days zosyn 12/25/24 Weaned O2 off Bipolar 1 with catatonia versus malignant catatonia see above DVT prophylaxis with Lovenox Full Code reason for continued hospitalization: Awaiting mental status improvement, tolerance of diet, ECT treatment Quality Stroke Does the patient have a stroke diagnosis?: No VTE Prior VTE?: No VTE Risk Level:: Medical - moderate - high VTE Device Contraindication: Treatment Not Indicated VTE Drug Contraindication: N/A - Med Ordered
--- NOTE | 2025-01-05 10:24 | MHC.CM.PN ---
hcp completed naming his as his hcp agent hcp placed on chart
--- NOTE | 2025-01-05 11:11 | PM.PSYCN ---
History of Present Illness Date of Service: 01/05/2025 Chief Complaint: pneumonia, hypoxia, sepsis Reason for Consult: catatonia Discussed with referring provider: Yes Sources of Information: patient interviewed, chart reviewed and crisis/core team assessment reviewed HPI Narrative: Interim Hx: pt had ECT #7 today. He was talking much more. Met with patient who reports he does not remember much of what has happened in the past 3 weeks. He reports hearing at times people talking but can't remember what. He reports he feels better in that he states he is able to talk and less confused. He was not sure where he was, knew hospital but did not know the name or town. This marketing writer provided information as to symptoms of catatonia and ECT. This marketing writer explained that he needs to continue ECT tx as symptoms of catatonia may return hours after ECT, and given that it has taken so long to respond, continue ECT is recommended. He denies SI/HI. He denies visual or auditory hallucinations. He denies fear of being harmed, as it had been reported that he presented with paranoid delusions prior to becoming completely mute. Past Psychiatric History: Inpt: [facility] 6 years ago. Past medication trials: olanzapine, ativan 2mg/daily [facility] Medical History Bipolar I disorder with catatonia Diagnostics Vital Signs (24Hr): Vital Signs - 24 hr 01/04/25 12:00 01/04/25 15:13 01/04/25 19:29 Temperature 97.4 F 97.3 F 97.2 F Pulse Rate 94 90 73 Respiratory Rate 14 14 18 Blood Pressure 126/84 118/76 122/73 Pulse Oximetry 96 96 96 Oxygen Delivery Method Room Air Room Air Room Air Oxygen Flow Rate 01/04/25 23:17 01/05/25 03:33 01/05/25 07:41 Temperature 97.3 F 97.3 F 97.2 F Pulse Rate 76 87 87 Respiratory Rate 18 18 18 Blood Pressure 120/68 133/83 124/78 Pulse Oximetry 96 96 95 Oxygen Delivery Method Room Air Room Air Room Air Oxygen Flow Rate 01/05/25 07:59 01/05/25 09:07 01/05/25 09:12 Temperature 97.6 F 97.6 F Pulse Rate 90 101 H 105 H Respiratory Rate 18 12 12 Blood Pressure 126/74 130/85 133/96 H Pulse Oximetry 96 98 95 Oxygen Delivery Method Room Air Nasal Cannula with ETCO2 Room Air Oxygen Flow Rate 2 01/05/25 09:17 01/05/25 09:22 01/05/25 09:35 Temperature 98.5 F Pulse Rate 103 H 102 H 99 Respiratory Rate 14 16 16 Blood Pressure 119/72 127/69 119/78 Pulse Oximetry 95 95 96 Oxygen Delivery Method Room Air Room Air Room Air Oxygen Flow Rate 01/05/25 09:50 Temperature Pulse Rate 99 Respiratory Rate 16 Blood Pressure 125/76 Pulse Oximetry 95 Oxygen Delivery Method Room Air Oxygen Flow Rate BMI result Body Mass Index 29.8 Labs 01/03/25 06:32 01/05/25 06:02 Labs: Laboratory Results - last 48 hr 01/04/25 01/04/25 01/05/25 05:39 06:35 06:02 Hold Purple Top SEE NOTE SEE NOTE Sodium 138 137 Potassium 4.2 4.3 Chloride 102 103 Carbon Dioxide 25 24 Anion Gap 15 14 BUN 15 22 H Creatinine 0.81 0.85 Estim Creat Clear Calc 154.2 146.9 Estimated GFR > 60 > 60 Random Glucose 268 H 223 H Calcium 9.7 9.8 Phosphorus 3.9 4.1 Magnesium 2.0 2.1 Albumin 4.1 4.2 Imaging Radiology Impressions: ITS Impressions Fluoroscopy 12/16/24 15:33 IMPRESSION: Successful fluoroscopy-guided L4-5 lumbar puncture performed. CSF fluid collected was sent to lab as per referring physician's orders. Electronically signed by: Liam Olea MD 12/18/2024 12:41 PM EDT RP Brain MRI 12/17/24 16:03 IMPRESSION: No acute stroke/ischemia or acute brain abnormality. Electronically signed by: Lenard Quiroga MD 12/18/2024 07:19 AM EDT RP Medications Medications Current Medications Acetaminophen (Acetaminophen Supp 650 Mg Supp.Rect) 650 mg NE Q6H PRN PRN Reason: Pain, Mild 1-3,fever,headache Acetaminophen (Acetaminophen 325 Mg Tablet) 650 mg PO Q4H PRN PRN Reason: Pain, Mild 1-3,fever,headache Last Admin: 01/02/25 16:35 Dose: 650 mg Enoxaparin Sodium (Enoxaparin Sodium 40 Mg/0.4 Ml Syringe) 40 mg SUBCUT Q24H [facility] Last Admin: 01/04/25 22:49 Dose: 40 mg Naloxone HCl (Naloxone Hcl 0.4 Mg/Ml Vial) 0.04 mg IVPUSH Q5M PRN PRN Reason: Excessive sedation or RR < 8 Naloxone HCl (Naloxone Hcl 0.4 Mg/Ml Vial) 0.04 mg IVPUSH Q5M PRN PRN Reason: Excessive sedation or RR < 8 Nicotine (Nicotine 21 Mg Patch.Td24) 21 mg TRANSDERMA DAILY [facility] Last Admin: 01/04/25 10:34 Dose: Not Given Nystatin (Nystatin Powder 15 Gm Bottle) 1 appl TOPICAL BID [facility]; Protocol Last Admin: 01/04/25 21:27 Dose: Not Given Ondansetron HCl (Ondansetron Hcl 4 Mg/2 Ml Vial) 4 mg IVPUSH Q8H PRN PRN Reason: Nausea and Vomiting Pharmacy Consult (Consult Rx Parenteral Nutrition Ordering) 1 each MISCELLANE DAILY PRN PRN Reason: Consult order Allergies Allergies Allergy/AdvReac Type Severity Reaction Status Date / Time sertraline [From Zoloft] Allergy Unknown Verified 12/14/24 16:10 Assessment & Plan Assessment & Plan (1) Catatonia: Status: Acute Code(s): F06.1 - Catatonic disorder due to known physiological condition Plan Mr. Ramsey is a 34 year-old male who was transferred to [facility] due to progressive increase in s/s of catatonia. He presented with tachypnea, hypertension, hypoxia, did become afebrile, but prior reports of pt presenting as sweating. He also had Leukocytosis, mildly elevated CPK in 400's. Lactic Acid was wnl. No hotn. He was seen by neurology. Had LP which was negative for FIRST COAT SANDER infections or other abnormalities. He has been progressively less responsive to benzodiazepine for s/s of catatonia (including mutism, black stare, waxy flexibility). No oral intake, now on PPN. PLAN 4/7 ECT #7 bitemporal. He is talking after ECT. Organized thought process. - Inpatient psych admission. - continue ECT - Encourage oral intake, plan to decrease PPN - off ativan, probably best as limited therapeutic effect and can interfere with ECT tx. - DVT prophylaxis- encourage ambulation Total time managing care of this patient today ___30_ minutes.
--- NOTE | 2025-01-05 12:01 | P.DS_ITS ---
DS: Providers Provider Date of Service: 01/05/25 Date of admission: 12/15/24 19:37 Date of discharge: 01/05/25 Primary care physician: Lb Physician Consults: 01/04/25 07:21 Ethics Eval Routine Comment: refractory catatonia on ECT. Inpt CARE Team Crisis Consult Routine Comment: Reason for consultation: medically clear , Discharge on TPN to psychiatry. DS: Diagnosis Discharge Diagnosis (1) Catatonia: Status: Acute (2) Toxic metabolic encephalopathy: Status: Acute (3) Pneumonia: Status: Acute (4) Acute hypoxemic respiratory failure: Status: Acute (5) Sepsis: Status: Acute (6) Acute hypokalemia: Status: Acute DS: Summary Hospital Course Hospital Course: The patient had prolonged hospital stay. for full details please return to EMR. Admission note HPI 34-year-old male with history of bipolar 1 disorder who had been admitted to [facility] from [facility] due to catatonia presented to the ED yesterday due to increased behavioral changes, medication refusal and delay in response. The patient is nonverbal and catatonic on exam and therefore review of systems is unable to be obtained. History obtained from chart as well as ED provider. Apparently, the patient's primary care provider had and he has been without his lorazepam prescription and was advised to go to the ED for refills. His reports compliance with lamotrigine, quetiapine, propranolol, and olanzapine. His reports he has been stable on these medications, however since the beginning of November, has become increasingly withdrawn and unable to sl eep or eat. She reported that he had been losing weight and ultimately stopped taking his other medications as he felt he could not eat. After not sleeping for 72 hours, she took him to an emergency room at [facility] and was then transferred to [facility] on December 12. On arrival yesterday, he was tachycardic, tachypneic, and diaphoretic, nonverbal, but making eye contact. He did have a leukocytosis of 16, was not thought to have an active infection at that time. No fevers. He did ultimately desaturate to 90% and was placed on 2 L supplemental O2 with improvement to 92-95%. Head CT obtained yesterday negative for any acute intracranial abnormality. Chest x-ray yesterday without any acute cardiopulmonary abnormality. CTA of the chest negative for PE and showed posterior bilateral pulmonary opacity right greater than left likely atelectasis but pneumonia not excluded. At that time, atelectasis was favored. He was evaluated by Psychiatry who suggested patient may need ECT and recommending starting high doses of Ativan 3 mg IV q.4h to be reassessed tomorrow. Suggesting, possible need for support for medicine while treating potential malignant catatonia which was not felt to be present at the moment but given vital sign abnormalities along with leukocytosis, Psychiatry recommending close monitoring. Today, patient developed fever of 102.5 with associated tachypnea, tachycardia and persistent hypoxia to 88% on room air, maintaining O2 sat of 95% on 2 L. repeat WBC 13.5. Renal function and electrolyte levels normal. Lactic acid 1.3. Total CK 416. CRP 3.76. Urinalysis not indicative of infection but does show elevated specific gravity. Urine tox screen positive for benzos only. Repeat chest x-ray is pending. The patient has been on a regular diet with limited p.o. intake. Given hypoxia, fevers, elevated white count associated with catatonia there is suspicion for aspiration pneumonia. Hospital course The patient was treated for the following: # Acute metabolic Toxic encephalopathy secondary to refractory catatonia. He was admitted to rule out any possible GUARD SUPERVISOR injury or infection. LP, Negative encephalitis panel, Negative CSF cultures, dcd IV Acyclovir after being on it. MRI negative for any acute findings. EEG negative for any seizure activities. The patient was primarly treated with high doses of Ativan with no significant improvement in his condition as he remained altered, mute and not eating. Started on IV fluids then switched to PPN as he was evaluated by psychiatry team who recommended starting ECT therapy which showed positive results as patient improved slowly over the course of hospital stay and became more alert and interactive while tolerating more PO intake. PPN was discontinued and he signed up his as HCP. He will be discharged to psychiatry morales to restart his psychiatric medications under supervision and to continue ECT as scheduled MWF. # Acute hypokalemia, replaced and corrected # Sepsis and acute hypoxic respiratory failure secondary to aspiration pneumonia at time of presentation treated and completed 10 days zosyn 12/25/24. Weaned O2 off. no need of antibiotics at time of discharge. # Bipolar 1, His home medications were all held on presentation and it has been 3 weeks now. to restart his medication by psychiatry team. Discharge plan The patient noe shafer discharged to psychiatry floor to restart his psychiatric medications under supervision and continue ECT. Time Attestation Discharge Coordination Time (in mins): 48 Quality: Safe Use of Opioids Does Pt have an Active Cancer Diagnosis on the Problem List?: No Quality: Stroke Does the patient have a stroke diagnosis?: No Physical Exam Vital Signs: Vital Signs: Last Vital Signs Temp 98.5 F 01/05/25 09:35 Pulse 99 01/05/25 09:50 Resp 16 01/05/25 09:50 BP 125/76 01/05/25 09:50 Pulse Ox 95 01/05/25 09:50 O2 Del Method Room Air 01/05/25 09:50 O2 Flow Rate 2 01/05/25 09:07 BMI result Body Mass Index 29.8 Const: Other: Constitutional : interactive, not in distress Cardiovascular : no JVP, no lower extremity edema Respiratory : bilateral chest movement, not in resp distress Gastrointestinal: soft, lax, Non tender Skin : Warm, Dry Neurological : Alert & oriented , No focal deficit DS: Data Data Completed and Pending Labs on day of discharge: Laboratory Results - last 24 hr 01/05/25 06:02 Hold Purple Top SEE NOTE Sodium 137 Potassium 4.3 Chloride 103 Carbon Dioxide 24 Anion Gap 14 BUN 22 H Creatinine 0.85 Estim Creat Clear Calc 146.9 Estimated GFR > 60 Random Glucose 223 H Calcium 9.8 Phosphorus 4.1 Magnesium 2.1 Albumin 4.2 Imaging Chest x-ray: Radiologist's impression: ITS Impressions Fluoroscopy 12/16/24 15:33 IMPRESSION: Successful fluoroscopy-guided L4-5 lumbar puncture performed. CSF fluid collected was sent to lab as per referring physician's orders. Electronically signed by: Liam Olea MD 12/18/2024 12:41 PM EDT RP Brain MRI 12/17/24 16:03 IMPRESSION: No acute stroke/ischemia or acute brain abnormality. Electronically signed by: Lenard Quiroga MD 12/18/2024 07:19 AM EDT RP Discharge Plan Discharge Anticipated Discharge Date/Time: 01/05/25 11:56 Patient Disposition: Xfer Psychiatric Hosp Discharge Diagnosis: Catatonia Pneumonia Referrals: Physician,Unknown J [Physician] - 1 Week Discharge Medications: New nicotine 21 mg/24 hr Patch 24 Hour 21 mg transdermal DAILY Qty: 90 0RF Continued ibuprofen 600 mg Tablet 600 mg PO TID PRN (Reason: Pain) Held quetiapine 200 mg Tablet 200 mg PO TID Hold Instructions: Psychiatry to decide on his medications lamotrigine 25 mg Tablet 50 mg PO BID Hold Instructions: PSychiatry to decide on home medication lorazepam 0.5 mg Tablet 0.5 mg PO BID Hold Instructions: Psychiatry to decide on his medications olanzapine 15 mg Tablet 30 mg PO BEDTIME Hold Instructions: Psychiatry to decide on his medications propranolol 20 mg Tablet 20 mg PO TID Hold Instructions: Psychiatry to decide on his medications Discharge Orders: Discharge Order (Routine); Ordered 01/05/25 Ordered By: Karon Shen Diet: Advance to usual diet Activity on Discharge: As tolerated Stand Alone Forms: Patient Portal Discharge page Print Language: Unable To Collect
--- NOTE | 2025-01-05 12:10 | MHC.CLN ---
F/U PER MD 01/05, DISCONTINUE PPN. DIET=REGULAR. ADDING ENSURE TID TO PROMOTE NUTRITIONAL INTAKE. SUPPLEMENT PROVIDES 1050 KCALS, 60 G PROTEIN. PATIENT CONTINUES WITH ECT. NO LONGER CATATONIC AND ABLE TO SPEAK. PO INTAKE VARIABLE, 0-50%. MONITOR PO INTAKE AND ENCOURAGE MEALS AND SUPPLEMENT ABLE. FOLLOW FOR PLAN OF CARE.
--- NOTE | 2025-01-05 12:33 | MHC.CM.PN ---
pt going to [facility]
== END 2025-01-05 12:29 | DRG 720 ==
LOC: HO.ED 12-15 20:24 → HO.EDOVER 12-15 20:34 → HO.S3 12-16 16:53 → HO.EDOVER 12-16 16:57 → HO.IMC 12-16 17:10 → HO.S3 12-31 12:41
PROVIDERS: Internal Medicine; Psychiatry & Neurology Psychiatry; Social Worker; Admitting Provider Physician Assistant; Emergency Provider Emergency Medicine; Visit Provider Student in an Organized Health Care Education/Training Program
PROC: GZB4ZZZ Other Electroconvulsive Therapy (ICD-10-PCS; CPT 90870; principal; 2024-12-19 15:00)
DX: A41.9 Sepsis, unspecified organism (principal); J96.01 Acute respiratory failure with hypoxia; J69.0 Pneumonitis due to inhalation of food and vomit; E87.6 Hypokalemia; F06.1 Catatonic disorder due to known physiological condition; E86.0 Dehydration; F31.9 Bipolar disorder, unspecified; Z87.891 Personal history of nicotine dependence; Z20.822 Contact with and (suspected) exposure to COVID-19
CPT/HCPCS: 0241U; 36415; 70450; 70551; 71045; 71275; 76000; 80048; 80053; 80076; 80143; 80175; 80179; 80307; 81003; 82040; 82140; 82550; 82803; 82947; 83605; 83690; 83735; 83880; 83930; 84100; 84157; 84443; 84478; 84484; 85025; 85027; 85379; 85610; 86140; 87015; 87040; 87070; 87205; 87483; 87640; 87641; 89051; 90870; 92526; 92610; 93005; 94640; 95816; 99285; J0131; J0133; J0330; J1596; J1630; J1650; J1805; J1920; J2003; J2060; J2543; J2704; J3360; J3370; J3371; J3480; J7120; Q9967; S9485

== ENCOUNTER → 2024-12-14 16:10 | Outpatient (BNV) | payer OTHER, SELFPAY | PROVIDERS: Admitting Provider Physician Assistant; Emergency Provider Emergency Medicine; Visit Provider Internal Medicine Cardiovascular Disease | DX: R94.31 Abnormal electrocardiogram [ECG] [EKG] (principal); R00.0 Tachycardia, unspecified | CPT/HCPCS: 93010 ==

== ENCOUNTER → 2024-12-14 16:32 | Outpatient (BNV) | payer OTHER, SELFPAY | PROVIDERS: Emergency Provider Emergency Medicine; Visit Provider Specialist | DX: R91.8 Other nonspecific abnormal finding of lung field (principal); R41.82 Altered mental status, unspecified; R09.02 Hypoxemia | CPT/HCPCS: 70450; 71045; 71275 ==

== ENCOUNTER → 2024-12-14 20:38 | Outpatient (BNV) | payer OTHER, SELFPAY | PROVIDERS: Emergency Provider Emergency Medicine; Visit Provider Social Worker | DX: F06.1 Catatonic disorder due to known physiological condition (principal) | CPT/HCPCS: 90870; 99232 ==

== ENCOUNTER → 2024-12-15 19:23 | Outpatient (BNV) | payer OTHER, SELFPAY | PROVIDERS: Admitting Provider Physician Assistant; Emergency Provider Emergency Medicine; Visit Provider Student in an Organized Health Care Education/Training Program | DX: J90 Pleural effusion, not elsewhere classified (principal) | CPT/HCPCS: 71045 ==

== ENCOUNTER 2024-12-15 19:37 | Outpatient (BNV) | payer OTHER, SELFPAY | END 2024-12-16 15:33 | PROVIDERS: Admitting Provider Physician Assistant; Emergency Provider Emergency Medicine; Visit Provider Radiology Diagnostic Radiology | DX: A41.9 Sepsis, unspecified organism (principal); R41.82 Altered mental status, unspecified | CPT/HCPCS: 76000 ==

== ENCOUNTER 2024-12-15 19:37 | Outpatient (BNV) | payer OTHER, SELFPAY | END 2024-12-17 16:03 | PROVIDERS: Admitting Provider Physician Assistant; Emergency Provider Emergency Medicine; Visit Provider Radiology Diagnostic Radiology | DX: G93.40 Encephalopathy, unspecified (principal) | CPT/HCPCS: 70551 ==

== ENCOUNTER → 2024-12-15 19:37 | Outpatient (BNV) | payer OTHER, SELFPAY | PROVIDERS: Admitting Provider Physician Assistant; Emergency Provider Emergency Medicine; Visit Provider Psychiatry & Neurology Psychiatry | DX: F33.3 Major depressive disorder, recurrent, severe with psychotic symptoms (principal) | CPT/HCPCS: 90870 ==

== ENCOUNTER → 2024-12-15 19:37 | Outpatient (BNV) | payer OTHER, SELFPAY | PROVIDERS: Admitting Provider Physician Assistant; Emergency Provider Emergency Medicine; Visit Provider Physician Assistant | DX: G92.8 Other toxic encephalopathy (principal); F06.1 Catatonic disorder due to known physiological condition | CPT/HCPCS: 99223; 99231; 99232; 99233 ==

== ENCOUNTER → 2024-12-15 19:37 | Outpatient (BNV) | payer OTHER, SELFPAY | PROVIDERS: Admitting Provider Physician Assistant; Emergency Provider Emergency Medicine; Visit Provider Psychiatry & Neurology Neurology | DX: R41.82 Altered mental status, unspecified (principal) | CPT/HCPCS: 99222 ==

== ENCOUNTER 2025-01-05 12:46 | Inpatient (IN) | payer OTHER, SELFPAY ==
[2025-01-05 13:45] VITALS: BP 127/81; PULSE 108; RESP 16; TEMP 37.1; O2SAT 97
[2025-01-05 13:47] VITALS: BMI 24.3
[2025-01-05 14:31] VITALS: BP 127/81; PULSE 108; O2SAT 97
--- OUTSIDE RECORDS SUMMARY | 2025-01-05 15:10 | XMS_ITS | Referral Summary ---
Author Organization [facility] Address [address] [place] [address] Care Team Providers Care Electrical Machinist Name Role Phone CadenFred DO Primary Care Provider Encounters * This document contains information received from the source organization and may not represent a complete record from that organization. Date Type Department Care Team Description 12/03/2024 Telephone [facility] [address] [facility] [address] [place] [address] No, Pcp [facility] Other 11/26/2024 Patient Outreach [facility] [address] [place] [address] Ayana Plunkett from Last 3 Months Medications * This document contains information received from the source organization and may not represent a complete record from that organization. No known medications Active Problems Problem Noted Date Diagnosed Date Outlet dysfunction constipation 08/21/2014 Anal pain 06/19/2014 Social History Tobacco Use Types Packs/Day Years Used Date Smoking Tobacco: Every Day Comments:: Sex and Gender Information Value Date Recorded Sex Assigned at Male 01/26/2023 9:38 AM EDT Legal Sex Male 12:48 AM EDT Gender Identity Male 01/26/2023 9:38 AM EDT Sexual Orientation Straight 01/26/2023 9: 38 AM EDT Last Filed Vital Signs Vital Sign Reading Time Taken Comments Blood Pressure 116/70 01/13/2015 8:58 AM EDT Pulse 77 01/13/2015 8:58 AM EDT Temperature 36.6 ??C (97.9 ??F) 01/13/2015 8:58 AM ED T Respiratory Rate - - Oxygen Saturation - - Inhaled Oxygen Concentration - - Weight 66.7 kg (147 lb) 01/13/2015 8:58 AM EDT Height 154.9 cm (5' 1 ) 01/13/2015 8:58 AM EDT Body Mass Index 27.78 01/13/2015 8:58 AM EDT Plan of Treatment Not on file Insurance [facility] MEDICAID Care Teams Electrical Machinist Relationship Specialty Start Date End Date Fred Negrete DO [address] [place] [id number] PCP - General 11/20/24
--- OUTSIDE RECORDS SUMMARY | 2025-01-05 15:10 | XMS_ITS | Continuity of Care Document ---
Author Organization [facility] Address [address] [place] [address] [address] [place], [place] Phone [phone] Care Team Providers Care Ssis Ssrs Developer Name Role Phone Latha Mahajan NP Care Team Information Fur Trapper U navailable BALJEET MOTLEY M.D. Care Team Information Rec eiver Unavailable Latha Mahajan NP Primary Care Physician Unavailab le Social History Type Date Description Comments Sex Unknown
--- OUTSIDE RECORDS SUMMARY | 2025-01-05 15:10 | XMS_ITS | Clinical Summary ---
Author Organization [facility] Address [address] [place] [address] Care Team Providers Care Mash Filter Press Operator Name Role Phone CadenFred Primary Care Provider Medications * This document contains information received from the source organization and may not represent a complete record from that organization. 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 Date Type Department Care Team Description 12/03/2024 Telephone [facility] [address] [facility] [address] [place] [address] No, Pcp [facility] Other 11/26/2024 Patient Outreach [facility] [address] [place] [address] Ayana Plunkett from Last 3 Months Family History Medical History Relation Name Comments Other Father Family History of chronic obstructive pulmonary disease Other Maternal Grandmother Family History of lung cancer Other Mother Family History of lung cancer Other Other Uncle Family Hi story of colon cancer Other Paternal Grandmother Family History of colon cancer Relation Name Status Comments Father Maternal Grandmother Mother Other Paternal Grandmother Social History Tobacco Use Types Packs/Day Years [...] 01/13/2015 8:58 AM EDT Plan of Treatment Health Maintenance Due Date Last Done Comments HIV Screening 1988 Hepatitis C Screening 1988 Varicella Vaccines (1 of 2 - 13+ 2-dose series) 2001 Hepatitis B Vaccines (1 of 3 - 19+ 3-dose series) 2007 Pneumococcal Vaccine: Pediat alexandra (0-5 Years) and At-Risk Patients (6-50 Years) (1 of 2 - PCV) 2007 COVID-19 Vaccine ( - 2023- season) 2024 08/10/2022, 02/20/2021, 01/23/2021 Alcohol/Substance Use Screening 10/01/2024 Depression Screening and Follow-Up 10/01/2024 Social Drivers of Health Peggy ual Screening 10/01/2024 Influenza Vaccine (Season Ended) 2025 06/15/20 20 DTaP,Tdap,and Td Vaccines (2 - Td or Tdap) 10/22/2028 10/22/2018 RSV Vaccine (60+ years old a nd patients) (1 - 1-dose 75+ series) 2063 Insurance [place] Care Teams Mash Filter Press Operator Relationship Specialty Start Date End Date Fred Negrete DO [address] [place] [id number] PCP - General 11/20/24
--- OUTSIDE RECORDS SUMMARY | 2025-01-05 15:10 | XMS_ITS ---
Author Organization [facility] Address [address] [place] [address] Care Team Providers Care Coupon Clerk Name Role Phone Latha Mahajan Primary Care Provider [phone] REASON FOR VISIT 3 month CSMP, Needs New CSMP Contract Signed - No contract in chart Encounters Encounter Location Date Provider Diagnosis [facility] [address] [facility] [place] [address] 08/18/2024 Latha Mahajan Plan Of Treatment No Information Progress Notes * MELI AVILAOB:1990 ( 34 yo M)Acc No.[id number]:08/18/2024 Progress Notes Patient:?IVON AVILA Provider:?Latha Mahajan NP :1990???Age:34 Y???Sex:Male Stefano e:08/18/2024 Address:[address] [place] [address], , [address] [id number] Subjective: * Chief Complaints: * ???1. 3 month CSMP. 2. Needs New CSMP Contract Signed - No contract in chart. * Medical History:? Objective: * Vitals:? Assessment: Plan: * Treatment: * * Electronic signature of Latha Mahajan NP on 01/05/2025 at 03:10 PM EDT Sign off status: Pending * Provider:Fadi Mahajan NP Date:?08/18/2024 Generated for Tu trujillo/Tresa/eTransmitting on:?01/05/2025 03:10 PM EDT
--- OUTSIDE RECORDS SUMMARY | 2025-01-05 15:10 | XMS_ITS | Clinical Summary ---
Author Organization [facility] Address [address] [place] [address] Phone Care Team Providers Care Veneer Matcher Name Role Phone Automatically1, Signed1 Unavailable [phone] Conditions or Problems No information available. Medications No information available. Medications Administered No information available. Allergies, Adverse Reactions, Alerts No information available. Results Date Name Value Unit Range Flag Description Lab Report: COMPLETE BLOOD C OUNT, ERYTHROCYTE SEDIMENTATION RATE, COMPRE ... A/G RATIO 2.2 Albumin/Sandy bulin [Mass Ratio] in Serum or Plasma GLOBULIN TOT 2.3 g/dL 1.5-2.9 Globulin [Mass/volume] in Serum SGPT (ALT) 13 U/L 0-65 Alanine aminotransferase [Enzymatic activity/volume] in Serum or Plasma SGOT (AST) 15 U/L 15-40 Aspartate aminotransferase [Enzymatic activity/volume] in Serum or Plasma ALK PHOS 90 U/L 50-136 Alkaline beatris sphatase [Enzymatic activity/volume] in Blood BILI TOTAL 0.8 mg/dL 0.0-1.0 Bilirubin. total [Mass/volume] in Serum or Plasma ALBUMIN 5.0 g/dL 3.4-5.5 Albumin [Mass/volume] in Serum or Plasma PROTEIN, TOT 7.3 g/dL 6.0-7.8 Protein [Mass/volume] in Serum or Plasma CALCIUM 9.4 mg/dL 8.5-10.5 Calcium [Moles/volume] in Serum or Plasma CREATININE 1.1 mg/dL 0.5-1.3 Creatinine [Mass/volume] in Serum or Plasma BUN 11 mg/dL 5-25 Urea nitrogen [Mass/volume] in Serum or Plasma BG RANDOM 101 mg/dL 72-137 Glucose [Mass/volume] in Blood ANION GAP 11 mEq/L 5-15 Anion gap 4 in Serum or Plasma CO2 TOTAL 24 mmol/L 18-32 carbon diox brittny, serum, total CL SERUM 106 meq/L 99-113 Chloride [Moles/volume] in Serum or Plasma K SERUM 3.7 meq/L 3.3-5.2 Potassium [Moles/volume] in Serum or Plasma SODIUM 141 mmol/L 135-145 Sodium [Moles/volume] in Serum or Plasma ESR 2 mm/h 0-16 Erythrocyte sedimentation rate by Westergren method MPV 8.9 UM*3 fL 7.4-10.4 Platelet me an volume [Entitic volume] in Blood by Jean Claude RDW 13.3 % 11.5-14.5 Erythrocyte distribution width [Ratio] by Automated count MCHC 33.6 % 31.0-35.5 MCHC [Mass/ volume] by Automated count MCH 32.3 pg 26-34 MCH [Entitic mass] by Automated count MCV 96.3 fL 80-99 MCV [Entitic volume] by Automated count RBC 5.13 10*6/mm3 3.9-5.5 Erythrocytes [#/volume] in Blood by Automated count BASOPH COUNT 0.0 10*3/mm3 0-0.30 Basophi ls [#/volume] in Blood by Manual count EOS COUNT 0.2 10*3/mm3 0-0.45 eosinophil count, blood MONOCYTE CNT 0.5 10*3/mm3 0-0.8 monocyt e count, blood LYMPH COUNT 3.4 10*3/mm3 1.5-4.0 lymphocy te count, blood NEUTRO COUNT 4.3 10*3/mm3 1.8-7.7 neutrop hil count, blood BASOPHIL % 0.5 % 0-3 Basophils/ 100 leukocytes in Blood by Manual count EOSINOPHIL % 2.2 % 0-8 Eosinoph ils/100 leukocytes in Blood by Manual count MONOCYTE % 6.4 % 0-12 Monocytes/ 100 leukocytes in Blood by Automated count LYMPHS % 40.3 % 20-44 Lymphocytes/ 100 leukocytes in Blood by Automated count PMN % 50.6 % 41-75 Neutrophils/1 00 leukocytes in Blood by Automated count PLATELETS 205 10*3/mm3 140-440 Platelets [#/volume] in Blood by Automated count HCT 49.4 % 39.8-52.0 Hematocrit [Volume Fraction] of Blood by Automated count HGB 16.6 g/dL 13.6-16.1 H Hemoglobin [Mass/volume] in Blood WBC 8.5 10*3/mm3 4.0-10.0 Leukocytes [#/volume] in Blood by Automated count Lab Report: THYROID STIMULAT ING HORMONE TSH ULTRA 0.63 u[iU]/mL 0.35-5.50 thyroid stimulating hormone (TSH), ultra sensitive TESTO, TOTAL Result Units ng/dL Reference Testosterone [Mass/volume] in Serum or Plasma Plan of Care No information available. Procedures No information available. Vital Signs No information available. Immunizations No information available. Advance Directives No information available.
--- OUTSIDE RECORDS SUMMARY | 2025-01-05 15:11 | XMS_ITS ---
Author Organization [facility] Address [address] [place] [place] [address] Care Team Providers Care Bus Washer Name Role Phone KeyshawnLatha Primary Care Provider Neri Li Unavailable [phone] REASON FOR VISIT Controlled refill 0 left Medications Medication SIG (Take, Route, Frequency, Duration) Notes Start Date End Date Status Ativan 1 MG 1 tab Orally Twice daily as needed for 28 days The patient may fill this prescription for less than the total amount prescribed. 08/04/2024 Active Encounters Encounter Location Date Provider Diagnosis [facility] [address] [facility] [place] [address] 08/04/2024 Neri Li Bipolar 1 disorder F31.9 Assessments Encounter Date Diagnosis (ICD Code) Assessment Notes Treatment Notes Treatment Clinical Notes Section Notes 08/04/2024 Bipolar 1 disorder (ICD-10 - F31.9) Plan Of Treatment Medication Medication Name Sig Start Date Stop Date Notes Ativan 1 MG 1 tab Orally Twice daily as needed for 28 days 08/04/2024 The patient may fill this prescription for less than the total amount prescribed. Progress Notes * ROBIN AVILAKATERINOB:1990 ( 34 yo M)Acc No.[id number]:08/04/2024 Patient:?IVON AVILA :1990???Age:34 Y???Sex:Male Address:[address] [place] [address], , [place], [address] * Refills? Refill Ativan Tablet, 1 MG, Orally, 56, 1 tab, Twice daily as needed, 28 days, Refills=0 * true * Date:? Generated for Tu trujillo/Tresa/Ramiro on:?01/05/2025 03:10 PM EDT
--- OUTSIDE RECORDS SUMMARY | 2025-01-05 15:11 | XMS_ITS ---
Author Organization [facility] Address [address] [facility] [place] [address] Care Team Providers Care Labor Utilization Superintendent Name Role Phone KeyshawnLatha Primary Care Provider Neri Li Unavailable [phone] REASON FOR VISIT Controlled refill 1 day left/ 0 left Medications Medication SIG (Take, Route, Frequency, Duration) Notes Start Date End Date Status LORazepam 1 MG TAKE 1 TABLET BY OG TH TWICE DAILY NEEDED for 28 30 day supply only - patient must be seen in office prior to any more refills 11/02/2024 Active Encounters Encounter Location Date Provider Diagnosis [facility] [address] [place] [address] 10/29/2024 Neri Li Bipolar 1 disorder F31.9 Assessments Encounter Date Diagnosis (ICD Code) Assessment Notes Treatment Notes Treatment Clinical Notes Section Notes 10/29/2024 Bipolar 1 disorder (ICD-10 - F31.9) Plan Of Treatment Medication Medication Name Sig Start Date Stop Date Notes LORazepam 1 MG TAKE 1 TABLET BY OG TH TWICE DAILY NEEDED for 28 11/02/2024 30 day supply only - patient must be seen in office prior to any more refills Progress Notes * MELI AVILAOB:1990 ( 34 yo M)Acc No.[id number]:10/29/2024 Patient:?ROBIN AVILAY :1990???Age:34 Y???Sex:Male Address:[address] [place] [address], , [place], [address] * Refills? Refill LORazepam Tablet, 1 MG, 56 Tablet, TAKE 1 TABLET BY MOUTH TWICE DAILY NEEDED, 28, Refills=0 * * Date:?
[2025-01-05] MEDS: 0.9 % Sodium Chloride Flush 10 ML SYRINGE 5 ML IVFLUSH (15:50)
[2025-01-05] MEDS: Nystatin Powder 15 GM BOTTLE 1 APPL TOPICAL ×2 (15:50→21:46)
--- NOTE | 2025-01-05 15:57 | PC.ADMIT ---
Addendum entered and electronically signed by Siobhan Monreal RN 01/05/25 16:20: Pt signed CV with Frida Parmar prior to admission to unit. Thick reddened skin noted bilateral inner thighs; Nystatin powder ordered. Original Note: [facility] [place] this 34 y.o. male. Has had previous psych admissions, previously admitted to [facility]. [place] [facility] [place] Team with Dx: Bipolar disorder, unspecified, Anxiety D/o, unspecified, Catatonic Disorder due to known physiological condition. Has been medically hospitalized [place] [facility] since 12/14/24. Has been catatonic with increase in responses/actions noted on days of ECT. Had ECT treatment this am. Had been receiving TPN for nutrition as oral intake independently has been poor. TPN d/c'd this am. Ate 100% lunch from meal tray. Nurse to nurse done with S3 prior to admission, doc to doc done prior. Admitted to this unit at 1244 and placed on 15 min safety checks. Noted to be unsteady while standing, transferring, ambulating. Changed to 1:1 observation, PT eval ordered and completed. Latency in response noted. Alert and oriented to person and year. Former 1 pack/day smoker. Has not smoked since admission to medical unit 12/14/24, states he would like to try not receiving NRT. Denies SI/HI. Reports hx command AH telling him to hurt self, denies currently. Reports not experiencing VH for a while. Inc of 2 loose stools upon return to medical floor after ECT; utilizing adult briefs.
--- NOTE | 2025-01-05 15:59 | HO.PSYADMNOT ---
HPI Date of Service: 01/05/25 Chief Complaint: Catatonia HPI Narrative: pt initially referred from [facility] due to catatonia, which they were unable to address. pt arrived essentially non-verbal, tracking with his eyes. he was admitted to the medical floor as he was not taking PO food, fluid, or medication, ultimately. he began ECT treatments from the medical floor. after 8 treatments, he began to speak again and was able to tolerate PO nutrition. parenteral nutrition was removed and pt was referred to psych floor for continued mgmt. per collateral from pt's , pt's PCP, who had been prescribing psych regimen, some weeks ago and pt was unable to continue his medications. once off medication, his already very tenuous position deteriorated rapidly. reported pt has recently appeared inordinately sleepy and difficult to rouse once asleep. he would barely have the energy to get up, go to work, and come home. he would then go to sleep nearly immediately. she reports his being withdrawn most of the past year, with little interest in mery out to see family and friends. she reported historical medications regimen as: propranolol 20 mg TID seroquel 200 mg TID lamictal 100 mg BID olanzapine 30 mg QHS ativan 1 mg BID on interview with MD on psych unit, pt was experiencing PMR and verbal HERNAN, but he was able to talk and follow commands. he denied SI/HI/VH, but he did endorse AH of get that, and you don't need that being given as examples. he reported he has also seen VH since being admitted to the hospital, but none very recently. he endorsed depression leading into the present hospitalization. he was open to restarting a low dose of anti-psychotic and adding anti-depressant and mood stabilizer down the road. he agreed to continue ECT as well. Past Psychiatric History: [facility] transfer to [facility] for catatonia. [facility]bro 6 years ago for manic episode. Past medication trials: olanzapine, ativan 2mg/daily Medical Evaluation Reviewed: Yes [facility] Medical History Bipolar I disorder with catatonia Family History: unknown Social History: with two children, daughters 8 and 10, lives in [place], [place] with his family. was working a job for 10 years until having a manic episode about 6 years ago. since then he has been able to work jobs for only about a year at a time, with significant depressive morbidity. recently quit a job at [employer] at the end of november after having worked there for about a year. Substance History: per , pt does not use substances Trauma History: unknown Diagnostics Vital Signs (24Hr): Vital Signs - 24 hr 01/05/25 13:45 01/05/25 14:31 Temperature 98.7 F Pulse Rate 108 H 108 H Respiratory Rate 16 Blood Pressure 127/81 127/81 Pulse Oximetry 97 97 Oxygen Delivery Method Room Air BMI result Body Mass Index 24.3 Meds/Allergies Allergies Allergies Allergy/AdvReac Type Severity Reaction Status Date / Time sertraline [From Zoloft] Allergy Unknown Verified 12/14/24 16:10 Mental Status Exam Mental Status Exam Narrative: adequately dressed and groomed. PMR. cooperative. speech decr rate, amount. nml loudness. incr latency. thoughts linear and logical. affect flat. mood mellow and depressed. denies SI/HI/VH. endorses AH of things such as get that, and you don't need that. Assessment & Plan Assessment & Plan (1) Bipolar I disorder with catatonia: Status: Acute Code(s): F31.9 - Bipolar disorder, unspecified; F06.1 - Catatonic disorder due to known physiological condition Plan restart olanzapine at 5 mg QHS. continue ECT. plan to add an anti-depressant, as the present episode of catatonia appears to be related to a depressive episode. mood stabilizer later. Patient educated on: diagnosis and medication risk/benefits Reason for continued inpatient stay Substantial Risk for: inability to function and med/psych decompensation Statement Statement: I have reviewed the history and physical and performed a pertinent examination on my patient. No changes have occurred unless specified. If the History and Physical was not performed prior to admission, the Hospitalist's service will be consulted for completing the admission physical. Time Spent With Patient Time: Total time managing care of this patient today __55__ minutes.
--- NOTE | 2025-01-05 19:32 | MHC.CLN ---
NUTRITION PATIENT KNOWN FROM MED/SURG ADMIT. DIET=REGULAR. ADDED ENSURE TID TO PROMOTE PO INTAKE. SUPPLEMENT PROVIDES 1050 KCALS, 60 G PROTEIN. RECENT POOR PO AND HAD REQUIRED NUTRITION/HYDRATION VIA PPN.
[2025-01-05 19:52] VITALS: BP 137/89; PULSE 114; RESP 18; TEMP 36.4; O2SAT 99
[2025-01-05] MEDS: OLANZapine 5 MG TABLET PO (21:46)
[2025-01-06] MEDS: 0.9 % Sodium Chloride Flush 10 ML SYRINGE 5 ML IVFLUSH ×4 (00:58→23:07)
[2025-01-06 07:46] VITALS: BP 128/74; PULSE 111; RESP 16; TEMP 37.1; O2SAT 99
--- NOTE | 2025-01-06 13:24 | HO.PSYCHPN ---
Subjective Subjective Date of Service: 01/06/25 Reason For Visit: Catatonia Interim History: bizarre smiling, saying he is hearing things, statements. reports they are coming from outside his head and behind him. unwilling or unable to provide examples. informed of plan to increase olanzapine at HS and resume ECT tomorrow. per staff, on CO. unsteady on his feet. increased HERNAN, denies SI/HI. slept all NOC. no issues. did not appear to be eating breakfast this morning. Mental Status Exam Mental Status Exam Narrative: adequately dressed and groomed. PMR. cooperative. speech decr rate, amount. nml loudness. incr latency. thoughts linear and logical, sparse. affect with bizarre smiling to flat. mood not assessed. no SI/HI/VH expressed. endorses AH of statements. Diagnostics Vital Signs (24Hr): Vital Signs - 24 hr 01/05/25 13:45 01/05/25 14:31 01/05/25 19:52 Temperature 98.7 F 97.6 F Pulse Rate 108 H 108 H 114 H Respiratory Rate 16 18 Blood Pressure 127/81 127/81 137/89 Pulse Oximetry 97 97 99 Oxygen Delivery Method Room Air Room Air 01/06/25 07:46 Temperature 98.8 F Pulse Rate 111 H Respiratory Rate 16 Blood Pressure 128/74 Pulse Oximetry 99 Oxygen Delivery Method Room Air BMI result Body Mass Index 24.3 Medications Medications Current Medications Acetaminophen (Acetaminophen 325 Mg Tablet) 650 mg PO Q6H PRN PRN Reason: Headache/Pain, Scale 1-10 Al Hydroxide/Mg Hydroxide (Magnesium Hydrox/Alum Hydrox 30 Ml Oral.Susp) 30 ml PO Q6H PRN PRN Reason: Heartburn/Nausea Hydroxyzine HCl (Hydroxyzine Hcl 25 Mg Tablet) 25 mg PO Q6H PRN PRN Reason: mild anxiety Magnesium Hydroxide (Milk Of Magnesia 30 Ml Oral.Susp) 30 ml PO DAILY PRN PRN Reason: Constipation Nicotine (Nicotine 14 Mg Patch.Td24) 14 mg TRANSDERMA DAILY [facility] Last Admin: 01/06/25 08:45 Dose: Not Given Nicotine Polacrilex (Nicotine Polacrilex 2 Mg Gum) 4 mg BUCCAL Q2H PRN PRN Reason: Nicotine Cravings Nystatin (Nystatin Powder 15 Gm Bottle) 1 appl TOPICAL TID [facility]; Protocol Last Admin: 01/06/25 13:03 Dose: Not Given Olanzapine (Olanzapine 5 Mg Tablet) 5 mg PO BEDTIME [facility] Last Admin: 01/05/25 21:46 Dose: 5 mg Sodium Chloride (0.9 % Sodium Chloride Flush 10 Ml Syringe) 5 ml IVFLUSH QSHIFT [facility] Last Admin: 01/06/25 08:43 Dose: 5 ml Trazodone HCl (Trazodone Hcl 50 Mg Tablet) 50 mg PO BEDTIME MRX1 PRN PRN Reason: Insomnia Allergies Allergies Allergy/AdvReac Type Severity Reaction Status Date / Time sertraline [From Zoloft] Allergy Unknown Verified 12/14/24 16:10 Assessment & Plan Assessment & Plan (1) Bipolar I disorder with catatonia: Status: Acute Code(s): F31.9 - Bipolar disorder, unspecified; F06.1 - Catatonic disorder due to known physiological condition Plan 01/05: restart olanzapine at 5 mg QHS. continue ECT. plan to add an anti-depressant, as the present episode of catatonia appears to be related to a depressive episode. mood stabilizer later. 01/06: clearly psychotic today more than yesterday. increase HS olanzapine to 10 mg, continue ECT tomorrow, #10. Reason for continued inpatient stay Substantial Risk for: inability to function, rapid decompensation and med/psych decompensation Time Spent With Patient Time: Total time managing care of this patient today __25__ minutes.
[2025-01-06 20:00] VITALS: BP 136/83; PULSE 82; RESP 16; TEMP 36.9; O2SAT 99
[2025-01-06] MEDS: OLANZapine 10 MG TABLET PO (21:03)
[2025-01-07] VITALS (9 sets, daily range): BP systolic 105–143; BP diastolic 71–96; PULSE 100–113; RESP 16–20; TEMP 36.4–36.9; O2SAT 95–100
[2025-01-07] MEDS: Lactated Ringers 1,000 ML 100 ML IVCONT (06:32)
--- NOTE | 2025-01-07 06:58 | MHC.SHP ---
Pre-Procedural Eval Section A - 24 Hr Update-Section A only Date of Service: 01/07/25 The patient is an INPATIENT: Yes Changes since office visit: Yes Patient answered all questions; No Cold of Flu in the past 2 weeks, No New Medical Problems and No Changes in Medication The patient has been examined within 24 hours of the surgical procedure. The History & Physical has been completed within 30 days and I have reviewed it.: Yes Section B - Complete if H&P > 30 days Chief Complaint: Catatonia Allergies: Allergies Allergy/AdvReac Type Severity Reaction Status Date / Time sertraline [From Zoloft] Allergy Unknown Verified 12/14/24 16:10 Plan I have reviewed the history and physical and performed a pertinent physical examination on my patient. No changes have occurred unless specified. Time Spent With Patient Time: Total time managing care of this patient today ____ minutes.
--- NOTE | 2025-01-07 07:25 | HO.ECTPROC ---
ECT Procedure Note Diagnosis/Treatment Date of Service: 01/07/25 Diagnosis: Catatonia Previous ECT Date: 01/05/25 Current Treatment Number: 9 Interval Clinical Notes: remains flat Time: Total time managing care of this patient today ____ minutes. ECT Settings Device: THYMATRON DGx Electrode Placement: Bitemporal Program/Pulse Width: 0.50 Energy Percent: 100 Seizure Duration By EEG (in seconds): 28 By Motor Observation (in seconds): 41 Medications Administration General Anesthetic: Etomidate (14) Muscle Relaxant: Succinylcholine (140) and Other (Labatolol 10mg) Ancillary Medications Miscillaneous Medications: Other (2mg post ECT) Airway Management Airway Management: Bag Mask Ventilation Treatment Recommendations No Changes Recommended: No change Electrode Placement: Bitemporal Program/Pulse Width: 0.50 Energy Percent: 100 Notes: continue current paramaters Pt Tolerated Procedure w/o Issue: Yes
[2025-01-07] MEDS: LORazepam 2 MG/ML VIAL IVPUSH (07:47)
[2025-01-07] MEDS: hydrOXYzine HCL 25 MG TABLET PO (08:37)
[2025-01-07] MEDS: Acetaminophen 325 MG TABLET 650 MG PO (08:37)
[2025-01-07] MEDS: Nystatin Powder 15 GM BOTTLE 1 APPL TOPICAL (08:40)
--- NOTE | 2025-01-07 10:45 | P.PNPSI_ITS ---
Subjective Subjective Date of Service: 01/07/25 Reason For Visit: Catatonia Interim History: seen at ECT as well as later on the unit. at ECT reported no AH but otherwise no change in Sx overnight. later on unit observed eating breakfast, stated he had a very good appetite. had vague memory of seeing MD at ECT. more responsive and no signs of psychosis today. per staff, poor PO intake yesterday, increased HERNAN. taking meds, slept 7 hours. Mental Status Exam Mental Status Exam Narrative: adequately dressed and groomed. PMR. cooperative. speech nml rate, decr amount. nml loudness. incr latency. thoughts linear and logical, sparse. affect blunted. mood improving. no AH. no SI/HI/VH expressed. Diagnostics Vital Signs (24Hr): Vital Signs - 24 hr 01/06/25 20:00 01/07/25 06:11 01/07/25 06:29 Temperature 98.5 F 98.2 F 98.2 F Pulse Rate 82 107 H 102 H Respiratory Rate 16 16 20 Blood Pressure 136/83 135/94 H 133/91 H Pulse Oximetry 99 100 100 Oxygen Delivery Method Room Air Room Air Oxygen Flow Rate 01/07/25 07:42 01/07/25 07:47 01/07/25 07:52 Temperature 98 F Pulse Rate 102 H 112 H 106 H Respiratory Rate 16 16 16 Blood Pressure 130/92 H 143/96 H 123/92 H Pulse Oximetry 96 95 95 Oxygen Delivery Method Nasal Cannula with ETCO2 Room Air Room Air Oxygen Flow Rate 2 01/07/25 07:57 01/07/25 08:10 01/07/25 08:25 Temperature 97.6 F 98.2 F Pulse Rate 113 H 106 H 102 H Respiratory Rate 16 18 16 Blood Pressure 112/72 112/80 134/94 H Pulse Oximetry 95 95 100 Oxygen Delivery Method Room Air Room Air Oxygen Flow Rate 01/07/25 08:25 Temperature 98.2 F Pulse Rate 102 H Respiratory Rate 16 Blood Pressure 134/94 H Pulse Oximetry 100 Oxygen Delivery Method Room Air Oxygen Flow Rate BMI result Body Mass Index 24.3 Medications Medications Current Medications Acetaminophen (Acetaminophen 325 Mg Tablet) 650 mg PO Q6H PRN PRN Reason: Headache/Pain, Scale 1-10 Last Admin: 01/07/25 08:37 Dose: 650 mg Al Hydroxide/Mg Hydroxide (Magnesium Hydrox/Alum Hydrox 30 Ml Oral.Susp) 30 ml PO Q6H PRN PRN Reason: Heartburn/Nausea Hydroxyzine HCl (Hydroxyzine Hcl 25 Mg Tablet) 25 mg PO Q6H PRN PRN Reason: mild anxiety Last Admin: 01/07/25 08:37 Dose: 25 mg Magnesium Hydroxide (Milk Of Magnesia 30 Ml Oral.Susp) 30 ml PO DAILY PRN PRN Reason: Constipation Nicotine (Nicotine 14 Mg Patch.Td24) 14 mg TRANSDERMA DAILY [facility] Last Admin: 01/07/25 08:41 Dose: Not Given Nicotine Polacrilex (Nicotine Polacrilex 2 Mg Gum) 4 mg BUCCAL Q2H PRN PRN Reason: Nicotine Cravings Nystatin (Nystatin Powder 15 Gm Bottle) 1 appl TOPICAL TID [facility]; Protocol Last Admin: 01/07/25 08:40 Dose: 1 appl Olanzapine (Olanzapine 10 Mg Tablet) 10 mg PO BEDTIME [facility] Last Admin: 01/06/25 21:03 Dose: 10 mg Sodium Chloride (0.9 % Sodium Chloride Flush 10 Ml Syringe) 5 ml IVFLUSH QSHIFT [facility] Trazodone HCl (Trazodone Hcl 50 Mg Tablet) 50 mg PO BEDTIME MRX1 PRN PRN Reason: Insomnia Allergies Allergies Allergy/AdvReac Type Severity Reaction Status Date / Time sertraline [From Zoloft] Allergy Unknown Verified 12/14/24 16:10 Assessment & Plan Assessment & Plan (1) Bipolar I disorder with catatonia: Status: Acute Code(s): F31.9 - Bipolar disorder, unspecified; F06.1 - Catatonic disorder due to known physiological condition Plan 01/05: restart olanzapine at 5 mg QHS. continue ECT. plan to add an anti- depressant, as the present episode of catatonia appears to be related to a depressive episode. mood stabilizer later. 01/06: clearly psychotic today more than yesterday. increase HS olanzapine to 10 mg, continue ECT tomorrow, #9. 01/07: denies AH prior to ECT. much less HERNAN after ECT, notes his own hunger, observed zealously eating breakfast. continue current mgmt. ECT #10 sunday. Reason for continued inpatient stay Substantial Risk for: inability to function, rapid decompensation and med/psych decompensation Time Spent With Patient Time: Total time managing care of this patient today __45__ minutes.
[2025-01-07] MEDS: 0.9 % Sodium Chloride Flush 10 ML SYRINGE 5 ML IVFLUSH ×2 (15:33→23:42)
[2025-01-07] MEDS: OLANZapine 10 MG TABLET PO (20:59)
[2025-01-08 07:00] VITALS: BMI 53.8
[2025-01-08 07:34] VITALS: BP 132/79; PULSE 93; RESP 16; TEMP 37.4; O2SAT 99
--- NOTE | 2025-01-08 10:10 | HO.PSYCHPN ---
Subjective Subjective Date of Service: 01/08/25 Reason For Visit: Catatonia Interim History: in bed, awake. some delay in response, but linear and logical, affectively flexible. some AH. no questions or complaints. per staff, taking meds. asking for lamictal and seroquel. slept 8 hours. Mental Status Exam Mental Status Exam Narrative: adequately dressed and groomed. PMR. cooperative. speech nml rate, decr amount. nml loudness. incr latency. thoughts linear and logical, sparse. affect full range. mood improving. some AH. no SI/HI/VH expressed. Diagnostics Vital Signs (24Hr): Vital Signs - 24 hr 01/07/25 20:00 01/08/25 07:34 Temperature 98.5 F 99.3 F Pulse Rate 100 93 Respiratory Rate 16 16 Blood Pressure 105/71 132/79 Pulse Oximetry 97 99 Oxygen Delivery Method Room Air Room Air BMI result Body Mass Index 24.3 Medications Medications Current Medications Acetaminophen (Acetaminophen 325 Mg Tablet) 650 mg PO Q6H PRN PRN Reason: Headache/Pain, Scale 1-10 Last Admin: 01/07/25 08:37 Dose: 650 mg Al Hydroxide/Mg Hydroxide (Magnesium Hydrox/Alum Hydrox 30 Ml Oral.Susp) 30 ml PO Q6H PRN PRN Reason: Heartburn/Nausea Hydroxyzine HCl (Hydroxyzine Hcl 25 Mg Tablet) 25 mg PO Q6H PRN PRN Reason: mild anxiety Last Admin: 01/07/25 08:37 Dose: 25 mg Magnesium Hydroxide (Milk Of Magnesia 30 Ml Oral.Susp) 30 ml PO DAILY PRN PRN Reason: Constipation Nicotine (Nicotine 14 Mg Patch.Td24) 14 mg TRANSDERMA DAILY [facility] Last Admin: 01/08/25 08:49 Dose: Not Given Nicotine Polacrilex (Nicotine Polacrilex 2 Mg Gum) 4 mg BUCCAL Q2H PRN PRN Reason: Nicotine Cravings Nystatin (Nystatin Powder 15 Gm Bottle) 1 appl TOPICAL TID [facility]; Protocol Last Admin: 01/08/25 08:50 Dose: Not Given Olanzapine (Olanzapine 10 Mg Tablet) 10 mg PO BEDTIME [facility] Last Admin: 01/07/25 20:59 Dose: 10 mg Sodium Chloride (0.9 % Sodium Chloride Flush 10 Ml Syringe) 5 ml IVFLUSH QSHIFT [facility] Last Admin: 01/08/25 08:52 Dose: Not Given Trazodone HCl (Trazodone Hcl 50 Mg Tablet) 50 mg PO BEDTIME MRX1 PRN PRN Reason: Insomnia Allergies Allergies Allergy/AdvReac Type Severity Reaction Status Date / Time sertraline [From Zoloft] Allergy Unknown Verified 12/14/24 16:10 Assessment & Plan Assessment & Plan (1) Bipolar I disorder with catatonia: Status: Acute Code(s): F31.9 - Bipolar disorder, unspecified; F06.1 - Catatonic disorder due to known physiological condition Plan 01/05: restart olanzapine at 5 mg QHS. continue ECT. plan to add an anti-depressant, as the present episode of catatonia appears to be related to a depressive episode. mood stabilizer later. 01/06: clearly psychotic today more than yesterday. increase HS olanzapine to 10 mg, continue ECT tomorrow, #9. 01/07: denies AH prior to ECT. much less HERNAN after ECT, notes his own hunger, observed zealously eating breakfast. continue current mgmt. ECT #10 sunday. 01/08: some AH today. poor sleep per pt, slept 8 hours per staff. ECT #10 tomorrow. DC CO, change to Q5 min checks. continue current mgmt otherwise. Reason for continued inpatient stay Substantial Risk for: inability to function and rapid decompensation Time Spent With Patient Time: Total time managing care of this patient today __25__ minutes.
--- NOTE | 2025-01-08 18:49 | PC.NURSE ---
Pt has a small 2.5mx1.5 cm sin irritation from the fall bracelet on his left wrist. Bracelet removed, area cleansed and bacitracin and band aid applied. new bracelit placed on right wrist.
[2025-01-08 20:00] VITALS: BP 123/73; PULSE 100; RESP 16; TEMP 36.9; O2SAT 98
[2025-01-08] MEDS: OLANZapine 10 MG TABLET PO (20:53)
[2025-01-08] MEDS: Bacitracin Oint 14 GM TUBE 1 APPL TOPICAL (20:53)
[2025-01-09] VITALS (11 sets, daily range): BP systolic 106–176; BP diastolic 40–102; PULSE 94–114; RESP 14–18; TEMP 36.4–37.6; O2SAT 96–100
--- NOTE | 2025-01-09 06:55 | MHC.SHP ---
Pre-Procedural Eval Section A - 24 Hr Update-Section A only Date of Service: 01/09/25 The patient is an INPATIENT: Yes The patient has been examined within 24 hours of the surgical procedure. The History & Physical has been completed within 30 days and I have reviewed it.: Yes Section B - Complete if H&P > 30 days Chief Complaint: Catatonia Allergies: Allergies Allergy/AdvReac Type Severity Reaction Status Date / Time sertraline [From Zoloft] Allergy Unknown Verified 12/14/24 16:10 Plan I have reviewed the history and physical and performed a pertinent physical examination on my patient. No changes have occurred unless specified. Time Spent With Patient Time: Total time managing care of this patient today ____ minutes.
[2025-01-09] MEDS: Lactated Ringers 1,000 ML 100 ML IVCONT (07:02)
--- NOTE | 2025-01-09 07:49 | MHC.SHP ---
Pre-Procedural Eval Section A - 24 Hr Update-Section A only Date of Service: 01/09/25 The patient is an INPATIENT: Yes Changes since office visit: Yes Changes in Medication and Yes Patient answered all questions; No Cold of Flu in the past 2 weeks and No New Medical Problems The patient has been examined within 24 hours of the surgical procedure. The History & Physical has been completed within 30 days and I have reviewed it.: Yes Section B - Complete if H&P > 30 days Chief Complaint: Catatonia Allergies: Allergies Allergy/AdvReac Type Severity Reaction Status Date / Time sertraline [From Zoloft] Allergy Unknown Verified 12/14/24 16:10 Plan I have reviewed the history and physical and performed a pertinent physical examination on my patient. No changes have occurred unless specified. Time Spent With Patient Time: Total time managing care of this patient today ____ minutes.
--- NOTE | 2025-01-09 07:50 | HO.ECTPROC ---
ECT Procedure Note Diagnosis/Treatment Date of Service: 01/09/25 Diagnosis: Bipolar disorder and Catatonia Previous ECT Date: 01/07/25 Current Treatment Number: 10 Treatment: Series Interval Clinical Notes: The patient is showing significant improvement has limited recollection of period of time prior to admission during to time he was catatonic more verbal ballesteros affect. ECT completed bitemporally without difficulty was given 5 mg of Valium post Time: Total time managing care of this patient today __30__ minutes. ECT Settings Device: THYMATRON DGx Electrode Placement: Bitemporal Program/Pulse Width: 0.50 Energy Percent: 100 Seizure Duration By EEG (in seconds): 31 By Motor Observation (in seconds): 41 Medications Administration General Anesthetic: Etomidate (14) Muscle Relaxant: Succinylcholine (140) and Other (Labatolol 10mg) Airway Management Airway Management: Bag Mask Ventilation Treatment Recommendations No Changes Recommended: No change Electrode Placement: Bitemporal Program/Pulse Width: 0.50 Energy Percent: 100 Notes: continue current paramaters Pt Tolerated Procedure w/o Issue: Yes
--- NOTE | 2025-01-09 08:11 | P.CONAN_ITS ---
[facility] Active Problems Active Problems: All Active Problems Acute hypokalemia (Acute) Toxic metabolic encephalopathy (Acute) Pneumonia (Acute) Acute hypoxemic respiratory failure (Acute) Sepsis (Acute) Pneumonia (Acute) Catatonia (Acute) Altered mental status (Acute) Bipolar I disorder with catatonia (Acute) Past Medical History Medical History (Updated 01/06/25 @ 02:35 by Arcelia Vasquez RN) Acute hypokalemia Sepsis Acute hypoxemic respiratory failure Pneumonia Toxic metabolic encephalopathy Bipolar I disorder with catatonia Family History Family history of problems with anesthesia: No Surgical History History of Problems with Anesthesia: No Social History Social History Household Members: Spouse and Children Household Members Other:: and 2 daughters Housing: House Do you presently have visiting nurse or other home services: No Unable to assess alcohol history related to: Unable to respond and Refusing to respond Comment: 1:1 Patient Tobacco Use Status: Former Tobacco user Tobacco use type: Cigarette Cigarette Packs Per Day: 1 Cigarettes Per Day: 20.0 Smoked in Last 30 Days: Yes e-Cigarette/Vaping Use: Former Use Patient Interested in Nicotine Replacement: No Patient Given Instructions on How to Stop Smoking: No (declined) Second Hand Smoke Exposure: Yes (people smoking around him) Use of substances other than those prescribed or required for medical reasons: No Currently Displaying Signs/Symptoms of Drug Intoxication Withdrawal: No Any prior treatment program specific to substance use: No Have you been hit, kicked, punched, or otherwise hurt by someone within the past year? If so, by whom?: No Do you feel safe in your current relationship?: No Is there a partner from a previous relationship who is making you feel unsafe now?: No Are you made to feel afraid or neglected: No Advance Directives: No Advance Directives Information Provided: No Do you have thoughts of harming others: None Do you have a plan to hurt others: No Plan Recently lost weight without trying: Unsure Eating poorly because of decreased appetite: No Nutrition Risks: No Nutritional Risk Poor oral hygiene: No service: No Sexual orientation: Straight/Heterosexual Meds Allergies Allergy/AdvReac Type Severity Reaction Status Date / Time sertraline [From Zoloft] Allergy Unknown Verified 12/14/24 16:10 Active Medications: Current Medications Acetaminophen (Acetaminophen 325 Mg Tablet) 650 mg PO Q6H PRN PRN Reason: Headache/Pain, Scale 1-10 Last Admin: 01/07/25 08:37 Dose: 650 mg Al Hydroxide/Mg Hydroxide (Magnesium Hydrox/Alum Hydrox 30 Ml Oral.Susp) 30 ml PO Q6H PRN PRN Reason: Heartburn/Nausea Bacitracin (Bacitracin Oint 14 Gm Tube) 1 appl TOPICAL DAILY [facility]; Protocol Last Admin: 01/08/25 20:53 Dose: 1 appl Hydroxyzine HCl (Hydroxyzine Hcl 25 Mg Tablet) 25 mg PO Q6H PRN PRN Reason: mild anxiety Last Admin: 01/07/25 08:37 Dose: 25 mg Lactated Ringer's (Lr) 1,000 mls @ 100 mls/hr IVCONT .Q10H [facility] Last Admin: 01/09/25 07:02 Dose: 100 mls/hr Magnesium Hydroxide (Milk Of Magnesia 30 Ml Oral.Susp) 30 ml PO DAILY PRN PRN Reason: Constipation Nicotine (Nicotine 14 Mg Patch.Td24) 14 mg TRANSDERMA DAILY [facility] Last Admin: 01/08/25 08:49 Dose: Not Given Nicotine Polacrilex (Nicotine Polacrilex 2 Mg Gum) 4 mg BUCCAL Q2H PRN PRN Reason: Nicotine Cravings Nystatin (Nystatin Powder 15 Gm Bottle) 1 appl TOPICAL TID [facility]; Protocol Last Admin: 01/08/25 20:57 Dose: Not Given Olanzapine (Olanzapine 10 Mg Tablet) 10 mg PO BEDTIME [facility] Last Admin: 01/08/25 20:53 Dose: 10 mg Trazodone HCl (Trazodone Hcl 50 Mg Tablet) 50 mg PO BEDTIME MRX1 PRN PRN Reason: Insomnia Exam Height,Weight and Vital Signs: Height 6 ft 1 in Weight 185 kg Last Vital Signs Temp 98.2 F 01/09/25 06:30 Pulse 97 01/09/25 06:30 Resp 18 01/09/25 06:30 BP 136/89 01/09/25 06:30 Pulse Ox 97 01/09/25 06:30 O2 Del Method Room Air 01/09/25 06:30 O2 Flow Rate 2 01/07/25 07:42 Airway Mallampati Class: III TM Dist: >3cm Neck ROM: Full Assessment and Plan Assessment Anesthesia Assessment: Anesthesia Plan Discussed and Chart Reviewed Final Anesthetic Review Family History of Problems with Anesthesia: No History of Problems with Anesthesia: No NPO: Yes ASA Class: III Final Preanesthetic Review: No Changes in Pt Med Stat, Meds/Allgs Chart Reviewed, Consent Obtained/Reviewed and Anes Risks/Benef Reviewed Patient Risk: Intermediate Procedure Risk: Low Anesthetic Plan Anesthetic Plan: GA Disposition: Standard PACU
[2025-01-09] MEDS: diazePAM 10 MG/2 ML CARTRIDGE 5 MG IVPUSH (08:26)
--- NOTE | 2025-01-09 11:26 | P.PNPSI_ITS ---
Subjective Subjective Date of Service: 01/09/25 Reason For Visit: Catatonia Interim History: pt seen at ECT as well as on unit. more affectively expressive, able to laugh, much less HERNAN. poor recall. states he is adjusting to the situation, trying to figure it out. recounted pt's course to date. per staff, +dep/anx. taking meds. +grps. les delayed. slept 8 hours. Mental Status Exam Mental Status Exam Narrative: adequately dressed and groomed. PMR much improved. cooperative. speech nml rate, decr amount. nml loudness. latency improved. thoughts linear and logical, less sparse. affect full range. mood improving. no SI/HI/AVH expressed. Diagnostics Vital Signs (24Hr): Vital Signs - 24 hr 01/08/25 20:00 01/09/25 05:45 01/09/25 05:54 Temperature 98.5 F 98.2 F 98.2 F Pulse Rate 100 101 H 101 H Respiratory Rate 16 14 14 Blood Pressure 123/73 122/53 L 122/83 Pulse Oximetry 98 98 98 Oxygen Delivery Method Room Air Room Air Oxygen Flow Rate 01/09/25 06:30 01/09/25 08:16 01/09/25 08:20 Temperature 98.2 F 97.6 F Pulse Rate 97 104 H 102 H Respiratory Rate 18 17 16 Blood Pressure 136/89 176/102 H 136/89 Pulse Oximetry 97 96 96 Oxygen Delivery Method Room Air Nasal Cannula with ETCO2 Nasal Cannula with ETCO2 Oxygen Flow Rate 2 2 01/09/25 08:25 01/09/25 08:30 01/09/25 08:45 Temperature Pulse Rate 98 99 95 Respiratory Rate 16 16 16 Blood Pressure 143/87 H 133/88 106/40 L Pulse Oximetry 96 97 97 Oxygen Delivery Method Nasal Cannula with ETCO2 Nasal Cannula with ETCO2 Room Air Oxygen Flow Rate 2 2 01/09/25 09:08 01/09/25 09:08 Temperature 98.9 F 98.9 F Pulse Rate 114 H 114 H Respiratory Rate 18 18 Blood Pressure 127/82 127/82 Pulse Oximetry 100 100 Oxygen Delivery Method Room Air Oxygen Flow Rate BMI result Body Mass Index 53.8 Medications Medications Current Medications Acetaminophen (Acetaminophen 325 Mg Tablet) 650 mg PO Q6H PRN PRN Reason: Headache/Pain, Scale 1-10 Last Admin: 01/07/25 08:37 Dose: 650 mg Al Hydroxide/Mg Hydroxide (Magnesium Hydrox/Alum Hydrox 30 Ml Oral.Susp) 30 ml PO Q6H PRN PRN Reason: Heartburn/Nausea Bacitracin (Bacitracin Oint 14 Gm Tube) 1 appl TOPICAL DAILY [facility]; Protocol Last Admin: 01/09/25 09:56 Dose: Not Given Hydroxyzine HCl (Hydroxyzine Hcl 25 Mg Tablet) 25 mg PO Q6H PRN PRN Reason: mild anxiety Last Admin: 01/07/25 08:37 Dose: 25 mg Magnesium Hydroxide (Milk Of Magnesia 30 Ml Oral.Susp) 30 ml PO DAILY PRN PRN Reason: Constipation Naloxone HCl (Naloxone Hcl 0.4 Mg/Ml Vial) 0.04 mg IVPUSH Q5M PRN PRN Reason: Excessive sedation or RR < 8 Nicotine (Nicotine 14 Mg Patch.Td24) 14 mg TRANSDERMA DAILY [facility] Last Admin: 01/09/25 09:56 Dose: Not Given Nicotine Polacrilex (Nicotine Polacrilex 2 Mg Gum) 4 mg BUCCAL Q2H PRN PRN Reason: Nicotine Cravings Nystatin (Nystatin Powder 15 Gm Bottle) 1 appl TOPICAL TID [facility]; Protocol Last Admin: 01/09/25 09:56 Dose: Not Given Olanzapine (Olanzapine 10 Mg Tablet) 10 mg PO BEDTIME [facility] Last Admin: 01/08/25 20:53 Dose: 10 mg Trazodone HCl (Trazodone Hcl 50 Mg Tablet) 50 mg PO BEDTIME MRX1 PRN PRN Reason: Insomnia Allergies Allergies Allergy/AdvReac Type Severity Reaction Status Date / Time sertraline [From Zoloft] Allergy Unknown Verified 12/14/24 16:10 Assessment & Plan Assessment & Plan (1) Bipolar I disorder with catatonia: Status: Acute Code(s): F31.9 - Bipolar disorder, unspecified; F06.1 - Catatonic disorder due to known physiological condition Plan 01/05: restart olanzapine at 5 mg QHS. continue ECT. plan to add an anti- depressant, as the present episode of catatonia appears to be related to a depressive episode. mood stabilizer later. 01/06: clearly psychotic today more than yesterday. increase HS olanzapine to 10 mg, continue ECT tomorrow, #9. 01/07: denies AH prior to ECT. much less HERNAN after ECT, notes his own hunger, observed zealously eating breakfast. continue current mgmt. ECT #10 sunday. 01/08: some AH today. poor sleep per pt, slept 8 hours per staff. ECT #10 tomorrow. DC CO, change to Q5 min checks. continue current mgmt otherwise. 01/09: ECT #10 completed. less HERNAN, more fluid, more affectively expressive. continue current mgmt. Reason for continued inpatient stay Substantial Risk for: inability to function and rapid decompensation Time Spent With Patient Time: Total time managing care of this patient today __55__ minutes.
[2025-01-09] MEDS: hydrOXYzine HCL 25 MG TABLET PO (17:48)
--- NOTE | 2025-01-09 17:49 | PC.NURSE ---
Addendum entered by Lana Lopez RN 01/09/25 18:59: RN reassessed pt, pt stated I'm feeling a lot better now. Original Note: Pt reported my heart feels like it's beating fast. Pt was unable to verbalize if he was experiencing anxiety. RN assessed vitals 133/80 HR 93 O2 100%. RN administered PRN Hydroxyzine and educated pt to inform RN if it's ineffective.
[2025-01-09] MEDS: OLANZapine 10 MG TABLET PO (20:53)
[2025-01-09] MEDS: Bacitracin Oint 14 GM TUBE 1 APPL TOPICAL (20:58)
[2025-01-10 07:05] VITALS: BP 111/84; PULSE 96; RESP 16; TEMP 36.7; O2SAT 99
[2025-01-10] MEDS: Nystatin Powder 15 GM BOTTLE 1 APPL TOPICAL (09:46)
[2025-01-10] MEDS: Bacitracin Oint 14 GM TUBE 1 APPL TOPICAL (09:46)
--- NOTE | 2025-01-10 16:46 | P.PNPSI_ITS ---
Subjective Subjective Date of Service: 01/10/25 Reason For Visit: Catatonia Interim History: more animated. memory problems. some difficulty sleeping. eating better. per staff, improving. eating better. visited yesterday. slept 9 hours. attended groups. Mental Status Exam Mental Status Exam Narrative: adequately dressed and groomed. PMR much improved. cooperative. speech nml rate, nml amount. nml loudness. latency improved. thoughts linear and logical, less sparse. affect full range. mood improving. no SI/HI/AVH expressed. Diagnostics Vital Signs (24Hr): Vital Signs - 24 hr 01/09/25 19:58 01/09/25 21:24 01/10/25 07:05 Temperature 99.6 F 98.4 F 98.1 F Pulse Rate 94 96 Respiratory Rate 16 16 Blood Pressure 112/70 111/84 Pulse Oximetry 99 99 Oxygen Delivery Method Room Air Room Air BMI result Body Mass Index 53.8 Medications Medications Current Medications Acetaminophen (Acetaminophen 325 Mg Tablet) 650 mg PO Q6H PRN PRN Reason: Headache/Pain, Scale 1-10 Last Admin: 01/07/25 08:37 Dose: 650 mg Al Hydroxide/Mg Hydroxide (Magnesium Hydrox/Alum Hydrox 30 Ml Oral.Susp) 30 ml PO Q6H PRN PRN Reason: Heartburn/Nausea Bacitracin (Bacitracin Oint 14 Gm Tube) 1 appl TOPICAL DAILY [facility]; Protocol Last Admin: 01/10/25 09:46 Dose: 1 appl Hydroxyzine HCl (Hydroxyzine Hcl 25 Mg Tablet) 25 mg PO Q6H PRN PRN Reason: mild anxiety Last Admin: 01/09/25 17:48 Dose: 25 mg Magnesium Hydroxide (Milk Of Magnesia 30 Ml Oral.Susp) 30 ml PO DAILY PRN PRN Reason: Constipation Naloxone HCl (Naloxone Hcl 0.4 Mg/Ml Vial) 0.04 mg IVPUSH Q5M PRN PRN Reason: Excessive sedation or RR < 8 Nicotine (Nicotine 14 Mg Patch.Td24) 14 mg TRANSDERMA DAILY [facility] Last Admin: 01/10/25 08:35 Dose: Not Given Nicotine Polacrilex (Nicotine Polacrilex 2 Mg Gum) 4 mg BUCCAL Q2H PRN PRN Reason: Nicotine Cravings Nystatin (Nystatin Powder 15 Gm Bottle) 1 appl TOPICAL TID [facility]; Protocol Last Admin: 01/10/25 15:16 Dose: Not Given Olanzapine (Olanzapine 10 Mg Tablet) 10 mg PO BEDTIME [facility] Last Admin: 01/09/25 20:53 Dose: 10 mg Trazodone HCl (Trazodone Hcl 50 Mg Tablet) 50 mg PO BEDTIME MRX1 PRN PRN Reason: Insomnia Allergies Allergies Allergy/AdvReac Type Severity Reaction Status Date / Time sertraline [From Zoloft] Allergy Unknown Verified 12/14/24 16:10 Assessment & Plan Assessment & Plan (1) Bipolar I disorder with catatonia: Status: Acute Code(s): F31.9 - Bipolar disorder, unspecified; F06.1 - Catatonic disorder due to known physiological condition Plan 01/05: restart olanzapine at 5 mg QHS. continue ECT. plan to add an anti- depressant, as the present episode of catatonia appears to be related to a depressive episode. mood stabilizer later. 01/06: clearly psychotic today more than yesterday. increase HS olanzapine to 10 mg, continue ECT tomorrow, #9. 01/07: denies AH prior to ECT. much less HERNAN after ECT, notes his own hunger, observed zealously eating breakfast. continue current mgmt. ECT #10 sunday. 01/08: some AH today. poor sleep per pt, slept 8 hours per staff. ECT #10 tomorrow. DC CO, change to Q5 min checks. continue current mgmt otherwise. 01/09: ECT #10 completed. less HERNAN, more fluid, more affectively expressive. continue current mgmt. 01/10: continues to improve in terms of spontaneity, affective expression. memory continues impaired. continue current mgmt. Reason for continued inpatient stay Substantial Risk for: inability to function and rapid decompensation Time Spent With Patient Time: Total time managing care of this patient today ____ minutes.
[2025-01-10 19:50] VITALS: BP 122/73; PULSE 98; RESP 14; TEMP 37.7; O2SAT 98
[2025-01-10] MEDS: OLANZapine 10 MG TABLET PO (21:12)
[2025-01-11 07:37] VITALS: BP 126/56; PULSE 93; RESP 14; TEMP 37.1; O2SAT 97
[2025-01-11] MEDS: Nystatin Powder 15 GM BOTTLE 1 APPL TOPICAL ×2 (09:02→20:56)
--- NOTE | 2025-01-11 12:33 | PM.EVENT ---
Event Note Date of Service: 01/11/25 Event Note: Consult called to evaluate new lesion on L wrist noted several days ago that has enl;arged. Reportedly his wristband was placed very tightly around L wrist and was recently changed, RN unsure when this was swtiched to R wrist. Have been using bacitracin. Appears consistent with a contact dermatitis with erythema circumfrentially around the L wrist. Recommend topical steroids BID x1 week. Does not appear consistent with cellulitis at this time. Monitor for any changes and please contact hospitalist service if not improving. Thank you for allowing me to participate in this consult. Signing off at this time. Please do not hesitate to call for further questions. Time Spent With Patient Time: Total time managing care of this patient today ____ minutes.
[2025-01-11] MEDS: Triamcinolone Acet 0.1 % Cream 15 GM TUBE 1 APPL TOPICAL ×2 (13:40→20:56)
[2025-01-11 20:00] VITALS: BP 120/83; PULSE 102; RESP 16; TEMP 36.9; O2SAT 97
--- NOTE | 2025-01-11 20:34 | P.PNPSI_ITS ---
Subjective Subjective Date of Service: 01/11/25 Reason For Visit: Catatonia Interim History: c/o having weird dreams, otherwise no complaints or requests. plan for ECT tomorrow reviewed. states his visited him yesterday and will be coming back again today. skin lesion on wrist examined, plan to consult hospitalist made. per staff, looking improved. wrist inflamed, etiology unclear. bacitracin has been unhelpful. slept 8 hours. Mental Status Exam Mental Status Exam Narrative: adequately dressed and groomed. PMR much improved. cooperative. speech nml rate, nml amount. nml loudness. latency improved. thoughts linear and logical, less sparse. affect full range. mood improving. no SI/HI/AVH expressed. Diagnostics Vital Signs (24Hr): Vital Signs - 24 hr 01/11/25 07:37 Temperature 98.7 F Pulse Rate 93 Respiratory Rate 14 Blood Pressure 126/56 L Pulse Oximetry 97 Oxygen Delivery Method Room Air BMI result Body Mass Index 53.8 Medications Medications Current Medications Acetaminophen (Acetaminophen 325 Mg Tablet) 650 mg PO Q6H PRN PRN Reason: Headache/Pain, Scale 1-10 Last Admin: 01/07/25 08:37 Dose: 650 mg Al Hydroxide/Mg Hydroxide (Magnesium Hydrox/Alum Hydrox 30 Ml Oral.Susp) 30 ml PO Q6H PRN PRN Reason: Heartburn/Nausea Bacitracin (Bacitracin Oint 14 Gm Tube) 1 appl TOPICAL DAILY [facility]; Protocol Last Admin: 01/11/25 09:03 Dose: Not Given Hydroxyzine HCl (Hydroxyzine Hcl 25 Mg Tablet) 25 mg PO Q6H PRN PRN Reason: mild anxiety Last Admin: 01/09/25 17:48 Dose: 25 mg Magnesium Hydroxide (Milk Of Magnesia 30 Ml Oral.Susp) 30 ml PO DAILY PRN PRN Reason: Constipation Naloxone HCl (Naloxone Hcl 0.4 Mg/Ml Vial) 0.04 mg IVPUSH Q5M PRN PRN Reason: Excessive sedation or RR < 8 Nicotine Polacrilex (Nicotine Polacrilex 2 Mg Gum) 4 mg BUCCAL Q2H PRN PRN Reason: Nicotine Cravings Nystatin (Nystatin Powder 15 Gm Bottle) 1 appl TOPICAL BID [facility]; Protocol Olanzapine (Olanzapine 10 Mg Tablet) 10 mg PO BEDTIME [facility] Last Admin: 01/10/25 21:12 Dose: 10 mg Triamcinolone Acetonide (Triamcinolone Acet 0.1 % Cream 15 Gm Tube) 1 appl TOPICAL BID [facility]; Protocol Last Admin: 01/11/25 13:40 Dose: 1 appl Allergies Allergies Allergy/AdvReac Type Severity Reaction Status Date / Time sertraline [From Zoloft] Allergy Unknown Verified 12/14/24 16:10 Assessment & Plan Assessment & Plan (1) Bipolar I disorder with catatonia: Status: Acute Code(s): F31.9 - Bipolar disorder, unspecified; F06.1 - Catatonic disorder due to known physiological condition Plan 01/05: restart olanzapine at 5 mg QHS. continue ECT. plan to add an anti- depressant, as the present episode of catatonia appears to be related to a depressive episode. mood stabilizer later. 01/06: clearly psychotic today more than yesterday. increase HS olanzapine to 10 mg, continue ECT tomorrow, #9. 01/07: denies AH prior to ECT. much less HERNAN after ECT, notes his own hunger, observed zealously eating breakfast. continue current mgmt. ECT #10 sunday. 01/08: some AH today. poor sleep per pt, slept 8 hours per staff. ECT #10 tomorrow. DC CO, change to Q5 min checks. continue current mgmt otherwise. 01/09: ECT #10 completed. less HERNAN, more fluid, more affectively expressive. continue current mgmt. 01/10: continues to improve in terms of spontaneity, affective expression. memory continues impaired. continue current mgmt. 01/11: improvement continues. ECT #11 tomorrow. medical consult for wrist lesion. presumed fungal at the moment, will try nystatin powder rather than bacitracin, which has not been helpful. Reason for continued inpatient stay Substantial Risk for: inability to function and med/psych decompensation Time Spent With Patient Time: Total time managing care of this patient today ____ minutes.
[2025-01-11] MEDS: OLANZapine 10 MG TABLET PO (20:56)
[2025-01-11] MEDS: hydrOXYzine HCL 25 MG TABLET PO (20:56)
[2025-01-12 06:18] VITALS: BP 133/79; PULSE 107; RESP 16; TEMP 36.7; O2SAT 98
[2025-01-12 07:20] VITALS: BP 104/78; PULSE 115; RESP 14; TEMP 36.8; O2SAT 97
[2025-01-12 13:01] VITALS: BP 141/101; PULSE 92; RESP 16; TEMP 36.3; O2SAT 97
[2025-01-12] MEDS: Lactated Ringers 1,000 ML 50 ML IVCONT (13:12)
--- NOTE | 2025-01-12 13:35 | MHC.SHP ---
Pre-Procedural Eval Section A - 24 Hr Update-Section A only Date of Service: 01/12/25 The patient is an INPATIENT: Yes Changes since office visit: Yes Changes in Medication and Yes Patient answered all questions; No Cold of Flu in the past 2 weeks and No New Medical Problems The patient has been examined within 24 hours of the surgical procedure. The History & Physical has been completed within 30 days and I have reviewed it.: Yes Section B - Complete if H&P > 30 days Chief Complaint: Catatonia Allergies: Allergies Allergy/AdvReac Type Severity Reaction Status Date / Time sertraline [From Zoloft] Allergy Unknown Verified 12/14/24 16:10 Plan I have reviewed the history and physical and performed a pertinent physical examination on my patient. No changes have occurred unless specified. Time Spent With Patient Time: Total time managing care of this patient today ____ minutes.
[2025-01-12] MEDS: Acetaminophen 325 MG TABLET 650 MG PO (13:42)
--- NOTE | 2025-01-12 13:57 | PC.NURSE ---
Per Dr. Emmanuel would like cancel this treatment and give pt time to heal and regain his memory. Pt sent back to floor
--- NOTE | 2025-01-12 14:50 | HO.PSYCHPN ---
Subjective Subjective Date of Service: 01/12/25 Reason For Visit: Catatonia Interim History: Met with patient; discussed with team; reviewed chart Patient was disappointed today as ECT was canceled by Dr. Emmanuel given patient's memory issues. Horseradish Grinder asked if patient remembers this past weekend which staff reported as patient doing overall a little better, interacting with peers, laughing and social; patient says he has some vague memory of it. Patient however agrees that he is eating better. Patient concerned about not being on medication. Discussed options and patient does not remember if he has ever been on lithium before, says his would know. Patient reports nightmares and agrees to start prazosin 1 mg. Mental Status Exam Mental Status Exam Narrative: Pt is alert and oriented; behavior is cooperative, friendly on approach, calm; patient is not in distress; dressed in casual attire with unkempt hair; mood is described as ok and affect blunted; eye contact appropriate; Speech is latent; wants talking, normal rate, volume and prosody and not pressured; some mild psychomotor retardation present; thought process is goal directed; Thought content is on tx; no delusional ideations expressed; denies any SI/HI. Did not assess for AVH; perhaps some thought blocking verse latency. Patients insight and judgment seem to be improving Diagnostics Vital Signs (24Hr): Vital Signs - 24 hr 01/11/25 20:00 01/12/25 06:18 01/12/25 07:20 Temperature 98.5 F 98.0 F 98.2 F Pulse Rate 102 H 107 H 115 H Respiratory Rate 16 16 14 Blood Pressure 120/83 133/79 104/78 Pulse Oximetry 97 98 97 Oxygen Delivery Method Room Air Room Air 01/12/25 13:01 Temperature 97.4 F Pulse Rate 92 Respiratory Rate 16 Blood Pressure 141/101 H Pulse Oximetry 97 Oxygen Delivery Method Room Air BMI result Body Mass Index 53.8 Medications Medications Current Medications Acetaminophen (Acetaminophen 325 Mg Tablet) 650 mg PO Q6H PRN PRN Reason: Headache/Pain, Scale 1-10 Last Admin: 01/12/25 13:42 Dose: 650 mg Al Hydroxide/Mg Hydroxide (Magnesium Hydrox/Alum Hydrox 30 Ml Oral.Susp) 30 ml PO Q6H PRN PRN Reason: Heartburn/Nausea Bacitracin (Bacitracin Oint 14 Gm Tube) 1 appl TOPICAL DAILY VLADIMIR; Protocol Last Admin: 01/12/25 09:02 Dose: Not Given Hydroxyzine HCl (Hydroxyzine Hcl 25 Mg Tablet) 25 mg PO Q6H PRN PRN Reason: mild anxiety Last Admin: 01/11/25 20:56 Dose: 25 mg Lactated Ringer's (Lr) 1,000 mls @ 50 mls/hr IVCONT .Q20H VLADIMIR Last Admin: 01/12/25 13:12 Dose: 50 mls/hr Magnesium Hydroxide (Milk Of Magnesia 30 Ml Oral.Susp) 30 ml PO DAILY PRN PRN Reason: Constipation Naloxone HCl (Naloxone Hcl 0.4 Mg/Ml Vial) 0.04 mg IVPUSH Q5M PRN PRN Reason: Excessive sedation or RR < 8 Naloxone HCl (Naloxone Hcl 0.4 Mg/Ml Vial) 0.04 mg IVPUSH Q5M PRN PRN Reason: Excessive sedation or RR < 8 Nicotine Polacrilex (Nicotine Polacrilex 2 Mg Gum) 4 mg BUCCAL Q2H PRN PRN Reason: Nicotine Cravings Nystatin (Nystatin Powder 15 Gm Bottle) 1 appl TOPICAL BID VLADIMIR; Protocol Last Admin: 01/12/25 09:03 Dose: Not Given Olanzapine (Olanzapine 10 Mg Tablet) 10 mg PO BEDTIME VLADIMIR Last Admin: 01/11/25 20:56 Dose: 10 mg Triamcinolone Acetonide (Triamcinolone Acet 0.1 % Cream 15 Gm Tube) 1 appl TOPICAL BID VLADIMIR; Protocol Last Admin: 01/12/25 09:03 Dose: Not Given Allergies Allergies Allergy/AdvReac Type Severity Reaction Status Date / Time sertraline [From Zoloft] Allergy Unknown Verified 12/14/24 16:10 Assessment & Plan Assessment & Plan (1) Bipolar I disorder with catatonia: Status: Inactive Code(s): F31.9 - Bipolar disorder, unspecified; F06.1 - Catatonic disorder due to known physiological condition Plan 01/05: restart olanzapine at 5 mg QHS. continue ECT. plan to add an anti-depressant, as the present episode of catatonia appears to be related to a depressive episode. mood stabilizer later. 01/06: clearly psychotic today more than yesterday. increase HS olanzapine to 10 mg, continue ECT tomorrow, #9. 01/07: denies AH prior to ECT. much less HERNAN after ECT, notes his own hunger, observed zealously eating breakfast. continue current mgmt. ECT #10 sunday. 01/08: some AH today. poor sleep per pt, slept 8 hours per staff. ECT #10 tomorrow. DC CO, change to Q5 min checks. continue current mgmt otherwise. 01/09: ECT #10 completed. less HERNAN, more fluid, more affectively expressive. continue current mgmt. 01/10: continues to improve in terms of spontaneity, affective expression. memory continues impaired. continue current mgmt. 01/11: improvement continues. ECT #11 tomorrow. medical consult for wrist lesion. presumed fungal at the moment, will try nystatin powder rather than bacitracin, which has not been helpful. 01/12 ECT was canceled by Dr. Emmanuel given patient's memory issues. Staff reported patient doing better this past weekend, interacting with peers, but patient has only vague memory of it. Patient however agrees that he is eating better. Patient wants medication for bipolar depression; does not remember if he has ever been on lithium before, says his would know. Started on prazosin 1 mg since complaining of nightmare Patient educated on: diagnosis and medication risk/benefits Informed Consent: understands and further education needed Reason for continued inpatient stay Substantial Risk for: inability to function Time Spent With Patient Time: Total time managing care of this patient today ____ minutes.
--- NOTE | 2025-01-12 16:07 | MHC.SHP ---
Pre-Procedural Eval Section A - 24 Hr Update-Section A only Date of Service: 01/12/25 Section B - Complete if H&P > 30 days Chief Complaint: Catatonia Allergies: Allergies Allergy/AdvReac Type Severity Reaction Status Date / Time sertraline [From Zoloft] Allergy Unknown Verified 12/14/24 16:10 Plan I have reviewed the history and physical and performed a pertinent physical examination on my patient. No changes have occurred unless specified. Time Spent With Patient Time: Total time managing care of this patient today ____ minutes.
--- NOTE | 2025-01-12 17:01 | PC.NURSE ---
Dr. Ordaz aware AM dressing was not changed due to pending ECT treatment.
[2025-01-12 21:02] VITALS: BP 119/70; PULSE 103; RESP 16; TEMP 37.3; O2SAT 99
[2025-01-12] MEDS: Prazosin HCL 1 MG CAPSULE PO (21:06)
[2025-01-12] MEDS: Triamcinolone Acet 0.1 % Cream 15 GM TUBE 1 APPL TOPICAL (21:07)
[2025-01-12] MEDS: OLANZapine 10 MG TABLET PO (21:07)
[2025-01-12] MEDS: Nystatin Powder 15 GM BOTTLE 1 APPL TOPICAL (21:07)
--- NOTE | 2025-01-13 03:28 | PC.NURSE ---
seen by hospitalist
[2025-01-13 07:29] VITALS: BP 116/68; PULSE 118; RESP 16; TEMP 36.4; O2SAT 97
[2025-01-13] MEDS: Bacitracin Oint 14 GM TUBE 1 APPL TOPICAL (09:52)
[2025-01-13] MEDS: Triamcinolone Acet 0.1 % Cream 15 GM TUBE 1 APPL TOPICAL (09:52)
[2025-01-13] MEDS: Nystatin Powder 15 GM BOTTLE 1 APPL TOPICAL ×2 (09:54→21:39)
--- NOTE | 2025-01-13 13:39 | P.PNPSI_ITS ---
Subjective Subjective Date of Service: 01/13/25 Reason For Visit: Catatonia Interim History: calm, cooperative. memory remains impaired. c/o nightmares asking for something to help. agreeable to increase prazosin to 2 mg QHS. also c/o poor sleep, agreeable to increase HS zyprexa to 20 mg. per staff, ECT held yesterday due to memory dysfxn. dep 7 on eves, 5 during days. c/o anxiety. my head is full of thoughts i feel like i can't slow down. slept 8 hours. Mental Status Exam Mental Status Exam Narrative: adequately dressed and groomed. PMR much improved. cooperative. speech nml rate, nml amount. nml loudness. latency improved. thoughts linear and logical, less sparse. affect full range. mood improving. +AH last NOC. no SI/HI/VH expressed. Diagnostics Vital Signs (24Hr): Vital Signs - 24 hr 01/12/25 21:02 01/13/25 07:29 Temperature 99.1 F 97.5 F Pulse Rate 103 H 118 H Respiratory Rate 16 16 Blood Pressure 119/70 116/68 Pulse Oximetry 99 97 Oxygen Delivery Method Room Air Room Air BMI result Body Mass Index 53.8 Medications Medications Current Medications Acetaminophen (Acetaminophen 325 Mg Tablet) 650 mg PO Q6H PRN PRN Reason: Headache/Pain, Scale 1-10 Last Admin: 01/12/25 13:42 Dose: 650 mg Al Hydroxide/Mg Hydroxide (Magnesium Hydrox/Alum Hydrox 30 Ml Oral.Susp) 30 ml PO Q6H PRN PRN Reason: Heartburn/Nausea Bacitracin (Bacitracin Oint 14 Gm Tube) 1 appl TOPICAL DAILY VLADIMIR; Protocol Last Admin: 01/13/25 09:52 Dose: 1 appl Hydroxyzine HCl (Hydroxyzine Hcl 25 Mg Tablet) 25 mg PO Q6H PRN PRN Reason: mild anxiety Last Admin: 01/11/25 20:56 Dose: 25 mg Magnesium Hydroxide (Milk Of Magnesia 30 Ml Oral.Susp) 30 ml PO DAILY PRN PRN Reason: Constipation Nicotine Polacrilex (Nicotine Polacrilex 2 Mg Gum) 4 mg BUCCAL Q2H PRN PRN Reason: Nicotine Cravings Nystatin (Nystatin Powder 15 Gm Bottle) 1 appl TOPICAL BID VLADIMIR; Protocol Last Admin: 01/13/25 09:54 Dose: 1 appl Olanzapine (Olanzapine 10 Mg Tablet) 20 mg PO BEDTIME VLADIMIR Prazosin HCl (Prazosin Hcl 1 Mg Capsule) 2 mg PO BEDTIME VLADIMIR; Protocol Triamcinolone Acetonide (Triamcinolone Acet 0.1 % Cream 15 Gm Tube) 1 appl TOPICAL BID VLADIMIR; Protocol Last Admin: 01/13/25 09:52 Dose: 1 appl Allergies Allergies Allergy/AdvReac Type Severity Reaction Status Date / Time sertraline [From Zoloft] Allergy Unknown Verified 12/14/24 16:10 Assessment & Plan Assessment & Plan (1) Bipolar I disorder with catatonia: Status: Inactive Code(s): F31.9 - Bipolar disorder, unspecified; F06.1 - Catatonic disorder due to known physiological condition Plan 01/05: restart olanzapine at 5 mg QHS. continue ECT. plan to add an anti- depressant, as the present episode of catatonia appears to be related to a depressive episode. mood stabilizer later. 01/06: clearly psychotic today more than yesterday. increase HS olanzapine to 10 mg, continue ECT tomorrow, #9. 01/07: denies AH prior to ECT. much less HERNAN after ECT, notes his own hunger, observed zealously eating breakfast. continue current mgmt. ECT #10 sunday. 01/08: some AH today. poor sleep per pt, slept 8 hours per staff. ECT #10 tomorrow. DC CO, change to Q5 min checks. continue current mgmt otherwise. 01/09: ECT #10 completed. less HERNAN, more fluid, more affectively expressive. continue current mgmt. 01/10: continues to improve in terms of spontaneity, affective expression. memory continues impaired. continue current mgmt. 01/11: improvement continues. ECT #11 tomorrow. medical consult for wrist lesion. presumed fungal at the moment, will try nystatin powder rather than bacitracin, which has not been helpful. 01/12 ECT was canceled by Dr. Emmanuel given patient's memory issues. Staff reported patient doing better this past weekend, interacting with peers, but patient has only vague memory of it. Patient however agrees that he is eating better. Patient wants medication for bipolar depression; does not remember if he has ever been on lithium before, says his would know. Started on prazosin 1 mg since complaining of nightmare 01/13: ECT yesterday held due to memory issues. increase prazosin to 2 mg QHS for nightmares and olanzapine to 20 mg QHS for AH/insomnia. per lewis, continue ECT tomorrow with bifrontal placement. Reason for continued inpatient stay Substantial Risk for: inability to function, rapid decompensation and med/psych decompensation Time Spent With Patient Time: Total time managing care of this patient today __25__ minutes.
--- NOTE | 2025-01-13 17:25 | PM.EVENT ---
Event Note Date of Service: 01/13/25 Event Note: Rash on the left wrist appears to have improved slightly. However, now appears more fungal in nature with beefy red moist appearance and scattered erythematous satellite lesions. Will discontinue Kenalog at this time. Initiate clotrimazole twice daily x7 days. DC abx ointment Time Spent With Patient Time: Total time managing care of this patient today ____ minutes.
[2025-01-13 21:33] VITALS: BP 117/88; PULSE 99; RESP 18; TEMP 37.2; O2SAT 97
[2025-01-13 21:34] VITALS: BP 117/88
[2025-01-13] MEDS: OLANZapine 10 MG TABLET 20 MG PO (21:34)
[2025-01-13] MEDS: Prazosin HCL 1 MG CAPSULE 2 MG PO (21:34)
[2025-01-13] MEDS: Clotrimazole 1 % Cream 15 GM TUBE 1 APPL TOPICAL (21:39)
[2025-01-14] VITALS (9 sets, daily range): BP systolic 109–168; BP diastolic 75–97; PULSE 89–117; RESP 16–22; TEMP 36.1–36.9; O2SAT 95–99
--- NOTE | 2025-01-14 06:24 | MHC.SHP ---
Pre-Procedural Eval Section A - 24 Hr Update-Section A only Date of Service: 01/14/25 The patient is an INPATIENT: Yes Changes since office visit: Yes Changes in Medication and Yes Patient answered all questions; No Cold of Flu in the past 2 weeks and No New Medical Problems The patient has been examined within 24 hours of the surgical procedure. The History & Physical has been completed within 30 days and I have reviewed it.: Yes Section B - Complete if H&P > 30 days Chief Complaint: Catatonia Allergies: Allergies Allergy/AdvReac Type Severity Reaction Status Date / Time sertraline [From Zoloft] Allergy Unknown Verified 12/14/24 16:10 Plan I have reviewed the history and physical and performed a pertinent physical examination on my patient. No changes have occurred unless specified. Time Spent With Patient Time: Total time managing care of this patient today ____ minutes.
[2025-01-14] MEDS: Lactated Ringers 1,000 ML 50 ML IVCONT (07:01)
--- NOTE | 2025-01-14 07:48 | HO.ECTPROC ---
ECT Procedure Note Diagnosis/Treatment Date of Service: 01/14/25 Diagnosis: Bipolar disorder and Catatonia Previous ECT Date: 01/09/25 Current Treatment Number: 11 Treatment: Series Interval Clinical Notes: The patient is last scheduled ECT on 01/12 was held by this administrative underwriter because of retrograde amnesia unclear if related to ECT versus catatonia times weeks. Patient has shown a clear good response he is not delirious he is alert mood improved. ECT done today bifrontal 0.25 program tolerated well did not get labetalol pretreatment anesthesia suggest giving 5 mg pretreatment next treatment. He had a seizure 41 seconds Time: Total time managing care of this patient today _30___ minutes. ECT Settings Device: THYMATRON DGx Electrode Placement: Bifrontal Program/Pulse Width: 0.25 Energy Percent: 100 Seizure Duration By EEG (in seconds): 41 Medications Administration General Anesthetic: Etomidate (14) Muscle Relaxant: Succinylcholine (140) Airway Management Airway Management: Bag Mask Ventilation Treatment Recommendations No Changes Recommended: No change Pt Tolerated Procedure w/o Issue: Yes
[2025-01-14] MEDS: Clotrimazole 1 % Cream 15 GM TUBE 1 APPL TOPICAL (09:19)
[2025-01-14] MEDS: Nystatin Powder 15 GM BOTTLE 1 APPL TOPICAL ×2 (09:22→21:11)
--- NOTE | 2025-01-14 10:58 | P.PNPSI_ITS ---
Subjective Subjective Date of Service: 01/14/25 Reason For Visit: Catatonia Interim History: continues to improve. able to recall having gone to ECT this morning as well as visit from yesterday. c/o poor sleep, agreeable to increase prazosin tonight. discuss vraylar, agree to not start yet due to poor sleep and need for zyprexa at HS. per staff, affect improving. taking meds. poor recall. slept well. ECT this morning. Mental Status Exam Mental Status Exam Narrative: adequately dressed and groomed. PMR much improved. cooperative. speech nml rate, nml amount. nml loudness. latency improved. thoughts linear and logical, less sparse. affect full range. mood improving. +AH last NOC. no SI/HI/VH expressed. Diagnostics Vital Signs (24Hr): Vital Signs - 24 hr 01/13/25 21:33 01/13/25 21:34 01/14/25 06:07 Temperature 98.9 F 98.5 F Pulse Rate 99 107 H Respiratory Rate 18 16 Blood Pressure 117/88 117/88 124/78 Pulse Oximetry 97 97 Oxygen Delivery Method Oxygen Flow Rate 01/14/25 06:35 01/14/25 07:48 01/14/25 07:50 Temperature 98.4 F 97.1 F Pulse Rate 113 H 117 H 96 Respiratory Rate 17 16 20 Blood Pressure 125/84 168/97 H 123/97 H Pulse Oximetry 97 95 95 Oxygen Delivery Method Room Air Nasal Cannula with ETCO2 Nasal Cannula with ETCO2 Oxygen Flow Rate 3 3 01/14/25 07:55 01/14/25 08:00 01/14/25 08:00 Temperature 98.4 F Pulse Rate 96 105 H 117 H Respiratory Rate 22 H 18 16 Blood Pressure 123/97 H 109/81 127/81 Pulse Oximetry 96 96 98 Oxygen Delivery Method Nasal Cannula with ETCO2 Nasal Cannula with ETCO2 Room Air Oxygen Flow Rate 3 3 01/14/25 08:15 Temperature 97.0 F Pulse Rate 105 H Respiratory Rate 18 Blood Pressure 115/75 Pulse Oximetry 97 Oxygen Delivery Method Room Air Oxygen Flow Rate 3 BMI result Body Mass Index 53.8 Medications Medications Current Medications Acetaminophen (Acetaminophen 325 Mg Tablet) 650 mg PO Q6H PRN PRN Reason: Headache/Pain, Scale 1-10 Last Admin: 01/12/25 13:42 Dose: 650 mg Al Hydroxide/Mg Hydroxide (Magnesium Hydrox/Alum Hydrox 30 Ml Oral.Susp) 30 ml PO Q6H PRN PRN Reason: Heartburn/Nausea Clotrimazole (Clotrimazole 1 % Cream 15 Gm Tube) 1 appl TOPICAL BID VLADIMIR; Protocol Stop: 01/20/25 09:01 Last Admin: 01/14/25 09:19 Dose: 1 appl Hydroxyzine HCl (Hydroxyzine Hcl 25 Mg Tablet) 25 mg PO Q6H PRN PRN Reason: mild anxiety Last Admin: 01/11/25 20:56 Dose: 25 mg Magnesium Hydroxide (Milk Of Magnesia 30 Ml Oral.Susp) 30 ml PO DAILY PRN PRN Reason: Constipation Naloxone HCl (Naloxone Hcl 0.4 Mg/Ml Vial) 0.04 mg IVPUSH Q5M PRN PRN Reason: Excessive sedation or RR < 8 Nicotine Polacrilex (Nicotine Polacrilex 2 Mg Gum) 4 mg BUCCAL Q2H PRN PRN Reason: Nicotine Cravings Nystatin (Nystatin Powder 15 Gm Bottle) 1 appl TOPICAL BID VLADIMIR; Protocol Last Admin: 01/14/25 09:22 Dose: 1 appl Olanzapine (Olanzapine 10 Mg Tablet) 20 mg PO BEDTIME VLADIMIR Last Admin: 01/13/25 21:34 Dose: 20 mg Olanzapine (Olanzapine 10 Mg Tablet) 10 mg PO BEDTIME PRN PRN Reason: insomnia Prazosin HCl (Prazosin Hcl 1 Mg Capsule) 3 mg PO BEDTIME VLADIMIR; Protocol Allergies Allergies Allergy/AdvReac Type Severity Reaction Status Date / Time sertraline [From Zoloft] Allergy Unknown Verified 12/14/24 16:10 Assessment & Plan Assessment & Plan (1) Bipolar I disorder with catatonia: Status: Inactive Code(s): F31.9 - Bipolar disorder, unspecified; F06.1 - Catatonic disorder due to known physiological condition Plan 01/05: restart olanzapine at 5 mg QHS. continue ECT. plan to add an anti- depressant, as the present episode of catatonia appears to be related to a depressive episode. mood stabilizer later. 01/06: clearly psychotic today more than yesterday. increase HS olanzapine to 10 mg, continue ECT tomorrow, #9. 01/07: denies AH prior to ECT. much less HERNAN after ECT, notes his own hunger, observed zealously eating breakfast. continue current mgmt. ECT #10 sunday. 01/08: some AH today. poor sleep per pt, slept 8 hours per staff. ECT #10 tomorrow. DC CO, change to Q5 min checks. continue current mgmt otherwise. 01/09: ECT #10 completed. less HERNAN, more fluid, more affectively expressive. continue current mgmt. 01/10: continues to improve in terms of spontaneity, affective expression. memory continues impaired. continue current mgmt. 01/11: improvement continues. ECT #11 tomorrow. medical consult for wrist lesion. presumed fungal at the moment, will try nystatin powder rather than bacitracin, which has not been helpful. 01/12 ECT was canceled by Dr. Emmanuel given patient's memory issues. Staff reported patient doing better this past weekend, interacting with peers, but patient has only vague memory of it. Patient however agrees that he is eating better. Patient wants medication for bipolar depression; does not remember if he has ever been on lithium before, says his would know. Started on prazosin 1 mg since complaining of nightmare 01/13: ECT yesterday held due to memory issues. increase prazosin to 2 mg QHS for nightmares and olanzapine to 20 mg QHS for AH/insomnia. per lewis, continue ECT tomorrow with bifrontal placement. 01/14: ECT #11 today, changed to bifrontal and 0.25 program for less cognitive s/e. increase prazosin to 3 mg QHS for sleep, continue zyprexa 20 mg QHS as well. continues to have AH at night as well as insomnia. an additional 10 mg zyprexa PRN was added. Reason for continued inpatient stay Substantial Risk for: inability to function and rapid decompensation Time Spent With Patient Time: Total time managing care of this patient today __25__ minutes.
[2025-01-14] MEDS: OLANZapine 10 MG TABLET 20 MG PO (21:07)
[2025-01-14] MEDS: Prazosin HCL 1 MG CAPSULE 3 MG PO (21:07)
[2025-01-15 07:00] VITALS: BMI 25.4
[2025-01-15 07:52] VITALS: BP 127/82; PULSE 103; RESP 16; TEMP 36.5; O2SAT 96
[2025-01-15] MEDS: Clotrimazole 1 % Cream 15 GM TUBE 1 APPL TOPICAL ×2 (08:41→20:43)
[2025-01-15] MEDS: Nystatin Powder 15 GM BOTTLE 1 APPL TOPICAL (08:43)
--- NOTE | 2025-01-15 11:36 | PC.NURSE ---
Pt completed a MOCA assessment with engineering writer. Pt scored 19 out of 30 indicating a mild cognitive impairment.
--- NOTE | 2025-01-15 14:29 | P.PNPSI_ITS ---
Subjective Subjective Date of Service: 01/15/25 Reason For Visit: Catatonia Interim History: faster, more spontaneous. reports AH throughout the night and difficulty sleeping despite staff report. per staff, taking meds, no s/e from ECT yesterday. slept 8 hours. Mental Status Exam Mental Status Exam Narrative: adequately dressed and groomed. PMR much improved. cooperative. speech nml rate, nml amount. nml loudness. latency improved. thoughts linear and logical, less sparse. affect full range. mood improving. +AH last NOC. no SI/HI/VH expressed. Diagnostics Vital Signs (24Hr): Vital Signs - 24 hr 01/14/25 20:56 01/15/25 07:52 Temperature 98.5 F 97.7 F Pulse Rate 89 103 H Respiratory Rate 16 16 Blood Pressure 125/82 127/82 Pulse Oximetry 99 96 Oxygen Delivery Method Room Air Room Air BMI result Body Mass Index 53.8 Medications Medications Current Medications Acetaminophen (Acetaminophen 325 Mg Tablet) 650 mg PO Q6H PRN PRN Reason: Headache/Pain, Scale 1-10 Last Admin: 01/12/25 13:42 Dose: 650 mg Al Hydroxide/Mg Hydroxide (Magnesium Hydrox/Alum Hydrox 30 Ml Oral.Susp) 30 ml PO Q6H PRN PRN Reason: Heartburn/Nausea Clotrimazole (Clotrimazole 1 % Cream 15 Gm Tube) 1 appl TOPICAL BID [facility]; Protocol Stop: 01/20/25 09:01 Last Admin: 01/15/25 08:41 Dose: 1 appl Hydroxyzine HCl (Hydroxyzine Hcl 25 Mg Tablet) 25 mg PO Q6H PRN PRN Reason: mild anxiety Last Admin: 01/11/25 20:56 Dose: 25 mg Magnesium Hydroxide (Milk Of Magnesia 30 Ml Oral.Susp) 30 ml PO DAILY PRN PRN Reason: Constipation Naloxone HCl (Naloxone Hcl 0.4 Mg/Ml Vial) 0.04 mg IVPUSH Q5M PRN PRN Reason: Excessive sedation or RR < 8 Nicotine Polacrilex (Nicotine Polacrilex 2 Mg Gum) 4 mg BUCCAL Q2H PRN PRN Reason: Nicotine Cravings Nystatin (Nystatin Powder 15 Gm Bottle) 1 appl TOPICAL BID [facility]; Protocol Last Admin: 01/15/25 08:43 Dose: 1 appl Olanzapine (Olanzapine 10 Mg Tablet) 10 mg PO BEDTIME PRN PRN Reason: insomnia Olanzapine (Olanzapine 10 Mg Tablet) 30 mg PO BEDTIME [facility] Prazosin HCl (Prazosin Hcl 1 Mg Capsule) 3 mg PO BEDTIME [facility]; Protocol Last Admin: 01/14/25 21:07 Dose: 3 mg Allergies Allergies Allergy/AdvReac Type Severity Reaction Status Date / Time sertraline [From Zoloft] Allergy Unknown Verified 12/14/24 16:10 Assessment & Plan Assessment & Plan (1) Bipolar I disorder with catatonia: Status: Inactive Code(s): F31.9 - Bipolar disorder, unspecified; F06.1 - Catatonic disorder due to known physiological condition Plan 01/05: restart olanzapine at 5 mg QHS. continue ECT. plan to add an anti- depressant, as the present episode of catatonia appears to be related to a depressive episode. mood stabilizer later. 01/06: clearly psychotic today more than yesterday. increase HS olanzapine to 10 mg, continue ECT tomorrow, #9. 01/07: denies AH prior to ECT. much less HERNAN after ECT, notes his own hunger, observed zealously eating breakfast. continue current mgmt. ECT #10 sunday. 01/08: some AH today. poor sleep per pt, slept 8 hours per staff. ECT #10 tomorrow. DC CO, change to Q5 min checks. continue current mgmt otherwise. 01/09: ECT #10 completed. less HERNAN, more fluid, more affectively expressive. continue current mgmt. 01/10: continues to improve in terms of spontaneity, affective expression. memory continues impaired. continue current mgmt. 01/11: improvement continues. ECT #11 tomorrow. medical consult for wrist lesion. presumed fungal at the moment, will try nystatin powder rather than bacitracin, which has not been helpful. 01/12 ECT was canceled by Dr. Emmanuel given patient's memory issues. Staff reported patient doing better this past weekend, interacting with peers, but patient has only vague memory of it. Patient however agrees that he is eating better. Patient wants medication for bipolar depression; does not remember if he has ever been on lithium before, says his would know. Started on prazosin 1 mg since complaining of nightmare 01/13: ECT yesterday held due to memory issues. increase prazosin to 2 mg QHS for nightmares and olanzapine to 20 mg QHS for AH/insomnia. per lewis, continue ECT tomorrow with bifrontal placement. 01/14: ECT #11 today, changed to bifrontal and 0.25 program for less cognitive s/e. increase prazosin to 3 mg QHS for sleep, continue zyprexa 20 mg QHS as well. continues to have AH at night as well as insomnia. an additional 10 mg zyprexa PRN was added. 01/15: insomnia and AH throughout the night. increase HS zyprexa to 30. ECT tomorrow. otherwise continue current mgmt. Reason for continued inpatient stay Substantial Risk for: inability to function and rapid decompensation Time Spent With Patient Time: Total time managing care of this patient today __25__ minutes.
--- NOTE | 2025-01-15 16:23 | P.CONAN_ITS ---
HPI - Anesthesia Eval Consult details Narrative: 34 yo male patient for ECT PMFSH Active Problems Active Problems: All Active Problems Acute hypokalemia (Acute) Past Medical History Medical History Acute hypokalemia Sepsis Acute hypoxemic respiratory failure Pneumonia Toxic metabolic encephalopathy Bipolar I disorder with catatonia Family History Family history of problems with anesthesia: No Surgical History History of Problems with Anesthesia: No Social History Social History Household Members: Spouse and Children Household Members Other:: and 2 daughters Housing: House Do you presently have visiting nurse or other home services: No Unable to assess alcohol history related to: Unable to respond and Refusing to respond Patient Tobacco Use Status: Former Tobacco user Tobacco use type: Cigarette Cigarette Packs Per Day: 1 Cigarettes Per Day: 20.0 Smoked in Last 30 Days: Yes e-Cigarette/Vaping Use: Former Use Patient Interested in Nicotine Replacement: No Patient Given Instructions on How to Stop Smoking: No (declined) Second Hand Smoke Exposure: Yes (people smoking around him) Use of substances other than those prescribed or required for medical reasons: No Currently Displaying Signs/Symptoms of Drug Intoxication Withdrawal: No Any prior treatment program specific to substance use: No Have you been hit, kicked, punched, or otherwise hurt by someone within the past year? If so, by whom?: No Do you feel safe in your current relationship?: No Is there a partner from a previous relationship who is making you feel unsafe no w?: No Are you made to feel afraid or neglected: No Advance Directives: No Advance Directives Information Provided: No Do you have thoughts of harming others: None Do you have a plan to hurt others: No Plan Recently lost weight without trying: Unsure Eating poorly because of decreased appetite: No Nutrition Risks: No Nutritional Risk Poor oral hygiene: No service: No Sexual orientation: Straight/Heterosexual Meds Allergies Allergy/AdvReac Type Severity Reaction Status Date / Time sertraline [From Zoloft] Allergy Unknown Verified 12/14/24 16:10 Active Medications: Current Medications Acetaminophen (Acetaminophen 325 Mg Tablet) 650 mg PO Q6H PRN PRN Reason: Headache/Pain, Scale 1-10 Last Admin: 01/12/25 13:42 Dose: 650 mg Al Hydroxide/Mg Hydroxide (Magnesium Hydrox/Alum Hydrox 30 Ml Oral.Susp) 30 ml PO Q6H PRN PRN Reason: Heartburn/Nausea Clotrimazole (Clotrimazole 1 % Cream 15 Gm Tube) 1 appl TOPICAL BID [facility]; Protocol Stop: 01/20/25 09:01 Last Admin: 01/15/25 08:41 Dose: 1 appl Hydroxyzine HCl (Hydroxyzine Hcl 25 Mg Tablet) 25 mg PO Q6H PRN PRN Reason: mild anxiety Last Admin: 01/11/25 20:56 Dose: 25 mg Magnesium Hydroxide (Milk Of Magnesia 30 Ml Oral.Susp) 30 ml PO DAILY PRN PRN Reason: Constipation Naloxone HCl (Naloxone Hcl 0.4 Mg/Ml Vial) 0.04 mg IVPUSH Q5M PRN PRN Reason: Excessive sedation or RR < 8 Nicotine Polacrilex (Nicotine Polacrilex 2 Mg Gum) 4 mg BUCCAL Q2H PRN PRN Reason: Nicotine Cravings Nystatin (Nystatin Powder 15 Gm Bottle) 1 appl TOPICAL BID [facility]; Protocol Last Admin: 01/15/25 08:43 Dose: 1 appl Olanzapine (Olanzapine 10 Mg Tablet) 10 mg PO BEDTIME PRN PRN Reason: insomnia Olanzapine (Olanzapine 10 Mg Tablet) 30 mg PO BEDTIME [facility] Prazosin HCl (Prazosin Hcl 1 Mg Capsule) 3 mg PO BEDTIME [facility]; Protocol Last Admin: 01/14/25 21:07 Dose: 3 mg Exam Height,Weight and Vital Signs: Height 6 ft 1 in Weight 87.18kg Vital Signs Temp Pulse Resp BP Pulse Ox O2 Del Method O2 Flow Rate 01/16/25 08:10 94 21 H 123/82 98 Nasal Cannula with ETCO2 2 01/16/25 07:55 98 17 118/84 98 Nasal Cannula with ETCO2 2 01/16/25 07:50 101 H 17 126/84 98 Nasal Cannula with ETCO2 2 01/16/25 07:45 100 17 125/83 98 Nasal Cannula with ETCO2 2 01/16/25 07:40 98.4 F 113 H 17 152/100 H 98 Nasal Cannula with ETCO2 2 01/16/25 06:32 98 F 86 19 122/84 97 Room Air 01/16/25 05:51 97.9 F 106 H 16 117/81 100 01/15/25 20:38 98.3 F 98 16 119/74 97 Room Air Last Vital Signs Temp 97.7 F 01/15/25 07:52 Pulse 103 H 01/15/25 07:52 Resp 16 01/15/25 07:52 BP 127/82 01/15/25 07:52 Pulse Ox 96 01/15/25 07:52 O2 Del Method Room Air 01/15/25 07:52 O2 Flow Rate 3 01/14/25 08:15 Narrative Narrative: Awake. Reactive. Answering most questions appropriately but a little forgetful with some answers Airway Mallampati Class: III TM Dist: >3cm Neck ROM: Full Loose/Missing/Broken Teeth: Yes (Missing some teeth. Denies broken or loose teet h) Heart: RRR Lungs: CTAB Assessment and Plan Assessment Anesthesia Assessment: Anesthesia Plan Discussed and Chart Reviewed Final Anesthetic Review Family History of Problems with Anesthesia: No History of Problems with Anesthesia: No NPO: Yes ASA Class: III Final Preanesthetic Review: No Changes in Pt Med Stat, Meds/Allgs Chart Reviewed, Consent Obtained/Reviewed and Anes Risks/Benef Reviewed Patient Risk: Intermediate Procedure Risk: Intermediate Anesthetic Plan Anesthetic Plan: GA Disposition: Standard PACU and Inp. Admit - Standard Bed
[2025-01-15 20:38] VITALS: BP 119/74; PULSE 98; RESP 16; TEMP 36.8; O2SAT 97
[2025-01-15] MEDS: OLANZapine 10 MG TABLET 30 MG PO (20:42)
[2025-01-15] MEDS: Prazosin HCL 1 MG CAPSULE 3 MG PO (20:42)
[2025-01-16] VITALS (11 sets, daily range): BP systolic 117–152; BP diastolic 71–100; PULSE 86–113; RESP 16–21; TEMP 36.4–37.2; O2SAT 97–100
[2025-01-16] MEDS: OLANZapine 10 MG TABLET PO (03:15)
[2025-01-16] MEDS: Lactated Ringers 1,000 ML 50 ML IVCONT (06:41)
--- NOTE | 2025-01-16 07:51 | MHC.SHP ---
Pre-Procedural Eval Section A - 24 Hr Update-Section A only Date of Service: 01/16/25 The patient is an INPATIENT: Yes Changes since office visit: Yes Changes in Medication and Yes Patient answered all questions; No Cold of Flu in the past 2 weeks and No New Medical Problems The patient has been examined within 24 hours of the surgical procedure. The History & Physical has been completed within 30 days and I have reviewed it.: Yes Section B - Complete if H&P > 30 days Chief Complaint: Catatonia Allergies: Allergies Allergy/AdvReac Type Severity Reaction Status Date / Time sertraline [From Zoloft] Allergy Unknown Verified 12/14/24 16:10 Plan I have reviewed the history and physical and performed a pertinent physical examination on my patient. No changes have occurred unless specified. Time Spent With Patient Time: Total time managing care of this patient today ____ minutes.
--- NOTE | 2025-01-16 13:08 | P.PNPSI_ITS ---
Subjective Subjective Date of Service: 01/16/25 Reason For Visit: Catatonia Interim History: reports he slept OK until 0300, then he was up, +AH. no nightmares. improvements in affective expression, HERNAN, and cognitive performance continue. ECT this morning, no issues. able to recall his kids' names. discuss possibility of concluding ECT for the near-term next week and then focusing on psychopharm for the week or two after, then discharge. per staff, broad affect. c/o poor sleep. less HERNAN. c/o nightmares. slept 4 hours overnight. roommate keeping him up. Mental Status Exam Mental Status Exam Narrative: adequately dressed and groomed. PMR much improved. cooperative. speech nml rate, nml amount. nml loudness. latency improved. thoughts linear and logical, less sparse. affect full range. mood improving. +AH last NOC. no SI/HI/VH expressed. Diagnostics Vital Signs (24Hr): Vital Signs - 24 hr 01/15/25 20:38 01/16/25 05:51 01/16/25 06:32 Temperature 98.3 F 97.9 F 98 F Pulse Rate 98 106 H 86 Respiratory Rate 16 16 19 Blood Pressure 119/74 117/81 122/84 Pulse Oximetry 97 100 97 Oxygen Delivery Method Room Air Room Air Oxygen Flow Rate 01/16/25 07:40 01/16/25 07:45 01/16/25 07:50 Temperature 98.4 F Pulse Rate 113 H 100 101 H Respiratory Rate 17 17 17 Blood Pressure 152/100 H 125/83 126/84 Pulse Oximetry 98 98 98 Oxygen Delivery Method Nasal Cannula with ETCO2 Nasal Cannula with ETCO2 Nasal Cannula with ETCO2 Oxygen Flow Rate 2 2 2 01/16/25 07:55 01/16/25 08:00 01/16/25 08:10 Temperature 98.9 F Pulse Rate 98 88 94 Respiratory Rate 17 18 21 H Blood Pressure 118/84 133/76 123/82 Pulse Oximetry 98 99 98 Oxygen Delivery Method Nasal Cannula with ETCO2 Room Air Nasal Cannula with ETCO2 Oxygen Flow Rate 2 2 01/16/25 08:25 Temperature 98 F Pulse Rate 95 Respiratory Rate 18 Blood Pressure 117/78 Pulse Oximetry 98 Oxygen Delivery Method Room Air Oxygen Flow Rate BMI result Body Mass Index 25.4 Medications Medications Current Medications Acetaminophen (Acetaminophen 325 Mg Tablet) 650 mg PO Q6H PRN PRN Reason: Headache/Pain, Scale 1-10 Last Admin: 01/12/25 13:42 Dose: 650 mg Al Hydroxide/Mg Hydroxide (Magnesium Hydrox/Alum Hydrox 30 Ml Oral.Susp) 30 ml PO Q6H PRN PRN Reason: Heartburn/Nausea Clotrimazole (Clotrimazole 1 % Cream 15 Gm Tube) 1 appl TOPICAL BID [facility]; Protocol Stop: 01/20/25 09:01 Last Admin: 01/15/25 20:43 Dose: 1 appl Hydroxyzine HCl (Hydroxyzine Hcl 25 Mg Tablet) 25 mg PO Q6H PRN PRN Reason: mild anxiety Last Admin: 01/11/25 20:56 Dose: 25 mg Magnesium Hydroxide (Milk Of Magnesia 30 Ml Oral.Susp) 30 ml PO DAILY PRN PRN Reason: Constipation Naloxone HCl (Naloxone Hcl 0.4 Mg/Ml Vial) 0.04 mg IVPUSH Q5M PRN PRN Reason: Excessive sedation or RR < 8 Nicotine Polacrilex (Nicotine Polacrilex 2 Mg Gum) 4 mg BUCCAL Q2H PRN PRN Reason: Nicotine Cravings Nystatin (Nystatin Powder 15 Gm Bottle) 1 appl TOPICAL BID [facility]; Protocol Last Admin: 01/15/25 21:50 Dose: Not Given Olanzapine (Olanzapine 10 Mg Tablet) 10 mg PO BEDTIME PRN PRN Reason: insomnia Last Admin: 01/16/25 03:15 Dose: 10 mg Olanzapine (Olanzapine 10 Mg Tablet) 30 mg PO BEDTIME [facility]ADIMIR Last Admin: 01/15/25 20:42 Dose: 30 mg Prazosin HCl (Prazosin Hcl 1 Mg Capsule) 3 mg PO BEDTIME [facility]; Protocol Last Admin: 01/15/25 20:42 Dose: 3 mg Allergies Allergies Allergy/AdvReac Type Severity Reaction Status Date / Time sertraline [From Zoloft] Allergy Unknown Verified 12/14/24 16:10 Assessment & Plan Assessment & Plan (1) Bipolar I disorder with catatonia: Status: Inactive Code(s): F31.9 - Bipolar disorder, unspecified; F06.1 - Catatonic disorder due to known physiological condition Plan 01/05: restart olanzapine at 5 mg QHS. continue ECT. plan to add an anti- depressant, as the present episode of catatonia appears to be related to a depressive episode. mood stabilizer later. 4/8: clearly psychotic today more than yesterday. increase HS olanzapine to 10 mg, continue ECT tomorrow, #9. 01/07: denies AH prior to ECT. much less HERNAN after ECT, notes his own hunger, observed zealously eating breakfast. continue current mgmt. ECT #10 sunday. 01/08: some AH today. poor sleep per pt, slept 8 hours per staff. ECT #10 tomorrow. DC CO, change to Q5 min checks. continue current mgmt otherwise. 01/09: ECT #10 completed. less HERNAN, more fluid, more affectively expressive. continue current mgmt. 01/10: continues to improve in terms of spontaneity, affective expression. memory continues impaired. continue current mgmt. 01/11: improvement continues. ECT #11 tomorrow. medical consult for wrist lesion. presumed fungal at the moment, will try nystatin powder rather than bacitracin, which has not been helpful. 01/12 ECT was canceled by Dr. Emmanuel given patient's memory issues. Staff reported patient doing better this past weekend, interacting with peers, but patient has only vague memory of it. Patient however agrees that he is eating better. Patient wants medication for bipolar depression; does not remember if he has ever been on lithium before, says his would know. Started on prazosin 1 mg since complaining of nightmare 01/13: ECT yesterday held due to memory issues. increase prazosin to 2 mg QHS for nightmares and olanzapine to 20 mg QHS for AH/insomnia. per lewis, continue ECT tomorrow with bifrontal placement. 01/14: ECT #11 today, changed to bifrontal and 0.25 program for less cognitive s/e. increase prazosin to 3 mg QHS for sleep, continue zyprexa 20 mg QHS as well. continues to have AH at night as well as insomnia. an additional 10 mg zyprexa PRN was added. 01/15: insomnia and AH throughout the night. increase HS zyprexa to 30. ECT tomorrow. otherwise continue current mgmt. 01/16: gains continue. memory improved. slept better last night. still AH once awake overnight, however. no nightmares. ECT #12 completed today. perhaps one more ECT next , then to focus on psychopharm prior to discharge. Reason for continued inpatient stay Substantial Risk for: rapid decompensation Time Spent With Patient Time: Total time managing care of this patient today __25__ minutes.
[2025-01-16] MEDS: Clotrimazole 1 % Cream 15 GM TUBE 1 APPL TOPICAL ×2 (17:19→20:46)
[2025-01-16] MEDS: Nystatin Powder 15 GM BOTTLE 1 APPL TOPICAL ×2 (17:19→20:46)
[2025-01-16] MEDS: OLANZapine 10 MG TABLET 30 MG PO (20:40)
[2025-01-16] MEDS: Prazosin HCL 1 MG CAPSULE 3 MG PO (20:40)
[2025-01-17 08:00] VITALS: BP 131/66; PULSE 105; RESP 18; TEMP 36.6; O2SAT 96
[2025-01-17] MEDS: Nystatin Powder 15 GM BOTTLE 1 APPL TOPICAL ×2 (09:10→21:26)
[2025-01-17] MEDS: Clotrimazole 1 % Cream 15 GM TUBE 1 APPL TOPICAL ×2 (09:14→21:26)
--- NOTE | 2025-01-17 10:46 | HO.PSYCHPN ---
Subjective Subjective Date of Service: 01/17/25 Reason For Visit: Catatonia Subjective Notes: Conditional Voluntary Interim History: Pt sleeping through the night. He reports feeling well, eating too much. He denies SI/HI. He hopes to be discharge soon. No overt psychosis or delusions. Plan to do one more ECT on Sunday, add mood stabilizer. pt reports sharp pain on lower back, he did have LP. may order hospitalist consult. Mental Status Exam Mental Status Exam Narrative: Appearance: casually groomed, good hygiene, in NAD behavior: cooperative Psychomotor: no agitation or retardation noted Speech: clear, normal rate/rhythm/volume, spontaneous TP: linear TC:hoping to go home soon Mood: okay Affect: congruent SI: denies HI: none VH/AH: no overt signs Delusions: no overt delusional content reported or noted Insight/judgment: improving Memory/cog: alert, oriented x 4. Diagnostics Vital Signs (24Hr): Vital Signs - 24 hr 01/16/25 16:53 01/16/25 19:30 Temperature 97.8 F 97.5 F Pulse Rate 99 97 Respiratory Rate 16 16 Blood Pressure 124/71 118/79 Pulse Oximetry 99 98 Oxygen Delivery Method Room Air BMI result Body Mass Index 25.4 Labs 01/19/25 11:31 Medications Medications Current Medications Acetaminophen (Acetaminophen 325 Mg Tablet) 650 mg PO Q6H PRN PRN Reason: Headache/Pain, Scale 1-10 Last Admin: 01/12/25 13:42 Dose: 650 mg Al Hydroxide/Mg Hydroxide (Magnesium Hydrox/Alum Hydrox 30 Ml Oral.Susp) 30 ml PO Q6H PRN PRN Reason: Heartburn/Nausea Clotrimazole (Clotrimazole 1 % Cream 15 Gm Tube) 1 appl TOPICAL BID [facility]; Protocol Stop: 01/20/25 09:01 Last Admin: 01/17/25 09:14 Dose: 1 appl Hydroxyzine HCl (Hydroxyzine Hcl 25 Mg Tablet) 25 mg PO Q6H PRN PRN Reason: mild anxiety Last Admin: 01/11/25 20:56 Dose: 25 mg Magnesium Hydroxide (Milk Of Magnesia 30 Ml Oral.Susp) 30 ml PO DAILY PRN PRN Reason: Constipation Naloxone HCl (Naloxone Hcl 0.4 Mg/Ml Vial) 0.04 mg IVPUSH Q5M PRN PRN Reason: Excessive sedation or RR < 8 Nicotine Polacrilex (Nicotine Polacrilex 2 Mg Gum) 4 mg BUCCAL Q2H PRN PRN Reason: Nicotine Cravings Nystatin (Nystatin Powder 15 Gm Bottle) 1 appl TOPICAL BID VLADIMIR; Protocol Last Admin: 01/17/25 09:10 Dose: 1 appl Olanzapine (Olanzapine 10 Mg Tablet) 10 mg PO BEDTIME PRN PRN Reason: insomnia Last Admin: 01/16/25 03:15 Dose: 10 mg Olanzapine (Olanzapine 10 Mg Tablet) 30 mg PO BEDTIME VLADIMIR Last Admin: 01/16/25 20:40 Dose: 30 mg Prazosin HCl (Prazosin Hcl 1 Mg Capsule) 3 mg PO BEDTIME [facility]ADIMIR; Protocol Last Admin: 01/16/25 20:40 Dose: 3 mg Allergies Allergies Allergy/AdvReac Type Severity Reaction Status Date / Time sertraline [From Zoloft] Allergy Unknown Verified 12/14/24 16:10 Assessment & Plan Assessment & Plan (1) Bipolar I disorder with catatonia: Status: Inactive Code(s): F31.9 - Bipolar disorder, unspecified; F06.1 - Catatonic disorder due to known physiological condition Plan 01/05: restart olanzapine at 5 mg QHS. continue ECT. plan to add an anti-depressant, as the present episode of catatonia appears to be related to a depressive episode. mood stabilizer later. 01/06: clearly psychotic today more than yesterday. increase HS olanzapine to 10 mg, continue ECT tomorrow, #9. 01/07: denies AH prior to ECT. much less HERNAN after ECT, notes his own hunger, observed zealously eating breakfast. continue current mgmt. ECT #10 sunday. 01/08: some AH today. poor sleep per pt, slept 8 hours per staff. ECT #10 tomorrow. DC CO, change to Q5 min checks. continue current mgmt otherwise. 01/09: ECT #10 completed. less HERNAN, more fluid, more affectively expressive. continue current mgmt. 01/10: continues to improve in terms of spontaneity, affective expression. memory continues impaired. continue current mgmt. 01/11: improvement continues. ECT #11 tomorrow. medical consult for wrist lesion. presumed fungal at the moment, will try nystatin powder rather than bacitracin, which has not been helpful. 01/12 ECT was canceled by Dr. Emmanuel given patient's memory issues. Staff reported patient doing better this past weekend, interacting with peers, but patient has only vague memory of it. Patient however agrees that he is eating better. Patient wants medication for bipolar depression; does not remember if he has ever been on lithium before, says his would know. Started on prazosin 1 mg since complaining of nightmare 01/13: ECT yesterday held due to memory issues. increase prazosin to 2 mg QHS for nightmares and olanzapine to 20 mg QHS for AH/insomnia. per lewis, continue ECT tomorrow with bifrontal placement. 01/14: ECT #11 today, changed to bifrontal and 0.25 program for less cognitive s/e. increase prazosin to 3 mg QHS for sleep, continue zyprexa 20 mg QHS as well. continues to have AH at night as well as insomnia. an additional 10 mg zyprexa PRN was added. 01/15: insomnia and AH throughout the night. increase HS zyprexa to 30. ECT tomorrow. otherwise continue current mgmt. 01/16: gains continue. memory improved. slept better last night. still AH once awake overnight, however. no nightmares. ECT #12 completed today. perhaps one more ECT next , then to focus on psychopharm prior to discharge. 01/17 continue current meds. will check cmp prior to starting lithium. hospitalist consult for sharp lower back pain. Reason for continued inpatient stay Substantial Risk for: inability to function Time Spent With Patient Time: Total time managing care of this patient today ____ minutes.
[2025-01-17] MEDS: Acetaminophen 325 MG TABLET 650 MG PO ×2 (13:22→21:34)
[2025-01-17 21:10] VITALS: BP 108/71; PULSE 103; RESP 16; TEMP 36.4; O2SAT 97
[2025-01-17] MEDS: Prazosin HCL 1 MG CAPSULE 3 MG PO (21:25)
[2025-01-17] MEDS: OLANZapine 10 MG TABLET 30 MG PO (21:25)
[2025-01-18 07:40] VITALS: BP 118/73; PULSE 87; RESP 16; TEMP 36.9; O2SAT 93
[2025-01-18] MEDS: Acetaminophen 325 MG TABLET 650 MG PO ×2 (09:28→20:49)
[2025-01-18] MEDS: Nystatin Powder 15 GM BOTTLE 1 APPL TOPICAL ×2 (09:55→20:31)
[2025-01-18] MEDS: Clotrimazole 1 % Cream 15 GM TUBE 1 APPL TOPICAL ×2 (09:56→20:34)
[2025-01-18 20:30] VITALS: BP 151/74; PULSE 99; RESP 18; TEMP 37.1; O2SAT 98
[2025-01-18 20:35] VITALS: BP 151/74
[2025-01-18] MEDS: Prazosin HCL 1 MG CAPSULE 3 MG PO (20:35)
[2025-01-18] MEDS: OLANZapine 10 MG TABLET 30 MG PO (20:37)
--- NOTE | 2025-01-18 22:30 | P.PNPSI_ITS ---
Subjective Subjective Date of Service: 01/18/25 Reason For Visit: Catatonia Subjective Notes: Conditional Voluntary Interim History: Pt sleeping through the night. He reports doing well. He reports eating a lot He denies SI/HI. No overt psychosis or delusions. will order cmp. Mental Status Exam Mental Status Exam Narrative: Appearance: casually groomed, good hygiene, in NAD behavior: cooperative Psychomotor: no agitation or retardation noted Speech: clear, normal rate/rhythm/volume, spontaneous TP: linear TC:hoping to go home soon Mood: okay Affect: congruent SI: denies HI: none VH/AH: no overt signs Delusions: no overt delusional content reported or noted Insight/judgment: improving Memory/cog: alert, oriented x 4. Diagnostics Vital Signs (24Hr): Vital Signs - 24 hr 01/18/25 07:40 01/18/25 20:30 01/18/25 20:35 Temperature 98.4 F 98.7 F Pulse Rate 87 99 Respiratory Rate 16 18 Blood Pressure 118/73 151/74 H 151/74 H Pulse Oximetry 93 98 Oxygen Delivery Method Room Air Room Air BMI result Body Mass Index 25.4 Labs 01/19/25 11:31 Medications Medications Current Medications Acetaminophen (Acetaminophen 325 Mg Tablet) 650 mg PO Q6H PRN PRN Reason: Headache/Pain, Scale 1-10 Last Admin: 01/18/25 20:49 Dose: 650 mg Al Hydroxide/Mg Hydroxide (Magnesium Hydrox/Alum Hydrox 30 Ml Oral.Susp) 30 ml PO Q6H PRN PRN Reason: Heartburn/Nausea Clotrimazole (Clotrimazole 1 % Cream 15 Gm Tube) 1 appl TOPICAL BID [facility]; Protocol Stop: 01/20/25 09:01 Last Admin: 01/18/25 20:34 Dose: 1 appl Hydroxyzine HCl (Hydroxyzine Hcl 25 Mg Tablet) 25 mg PO Q6H PRN PRN Reason: mild anxiety Last Admin: 01/11/25 20:56 Dose: 25 mg Magnesium Hydroxide (Milk Of Magnesia 30 Ml Oral.Susp) 30 ml PO DAILY PRN PRN Reason: Constipation Naloxone HCl (Naloxone Hcl 0.4 Mg/Ml Vial) 0.04 mg IVPUSH Q5M PRN PRN Reason: Excessive sedation or RR < 8 Nicotine Polacrilex (Nicotine Polacrilex 2 Mg Gum) 4 mg BUCCAL Q2H PRN PRN Reason: Nicotine Cravings Nystatin (Nystatin Powder 15 Gm Bottle) 1 appl TOPICAL BID [facility]AD[facility]; Protocol Last Admin: 01/18/25 20:31 Dose: 1 appl Olanzapine (Olanzapine 10 Mg Tablet) 10 mg PO BEDTIME PRN PRN Reason: insomnia Last Admin: 01/16/25 03:15 Dose: 10 mg Olanzapine (Olanzapine 10 Mg Tablet) 30 mg PO BEDTIME VLADIMIR Last Admin: 01/18/25 20:37 Dose: 30 mg Prazosin HCl (Prazosin Hcl 1 Mg Capsule) 3 mg PO BEDTIME [facility]; Protocol Last Admin: 01/18/25 20:35 Dose: 3 mg Allergies Allergies Allergy/AdvReac Type Severity Reaction Status Date / Time sertraline [From Zoloft] Allergy Unknown Verified 12/14/24 16:10 Assessment & Plan Assessment & Plan (1) Bipolar I disorder with catatonia: Status: Inactive Code(s): F31.9 - Bipolar disorder, unspecified; F06.1 - Catatonic disorder due to known physiological condition Plan 01/05: restart olanzapine at 5 mg QHS. continue ECT. plan to add an anti- depressant, as the present episode of catatonia appears to be related to a depressive episode. mood stabilizer later. 01/06: clearly psychotic today more than yesterday. increase HS olanzapine to 10 mg, continue ECT tomorrow, #9. 01/07: denies AH prior to ECT. much less HERNAN after ECT, notes his own hunger, observed zealously eating breakfast. continue current mgmt. ECT #10 sunday. 01/08: some AH today. poor sleep per pt, slept 8 hours per staff. ECT #10 tomorrow. DC CO, change to Q5 min checks. continue current mgmt otherwise. 01/09: ECT #10 completed. less HERNAN, more fluid, more affectively expressive. continue current mgmt. 01/10: continues to improve in terms of spontaneity, affective expression. memory continues impaired. continue current mgmt. 01/11: improvement continues. ECT #11 tomorrow. medical consult for wrist lesion. presumed fungal at the moment, will try nystatin powder rather than bacitracin, which has not been helpful. 01/12 ECT was canceled by Dr. Emmanuel given patient's memory issues. Staff reported patient doing better this past weekend, interacting with peers, but patient has only vague memory of it. Patient however agrees that he is eating better. Patient wants medication for bipolar depression; does not remember if he has ever been on lithium before, says his would know. Started on prazosin 1 mg since complaining of nightmare 01/13: ECT yesterday held due to memory issues. increase prazosin to 2 mg QHS for nightmares and olanzapine to 20 mg QHS for AH/insomnia. per lewis, continue ECT tomorrow with bifrontal placement. 01/14: ECT #11 today, changed to bifrontal and 0.25 program for less cognitive s/e. increase prazosin to 3 mg QHS for sleep, continue zyprexa 20 mg QHS as well. continues to have AH at night as well as insomnia. an additional 10 mg zyprexa PRN was added. 01/15: insomnia and AH throughout the night. increase HS zyprexa to 30. ECT tomorrow. otherwise continue current mgmt. 01/16: gains continue. memory improved. slept better last night. still AH once awake overnight, however. no nightmares. ECT #12 completed today. perhaps one more ECT next , then to focus on psychopharm prior to discharge. 01/17 continue current meds. will check cmp prior to starting lithium. hospitalist consult for sharp lower back pain. 01/18 continue tx. Reason for continued inpatient stay Substantial Risk for: inability to function Time Spent With Patient Time: Total time managing care of this patient today ____ minutes.
[2025-01-19 08:00] VITALS: BP 120/74; PULSE 117; RESP 18; TEMP 36.5; O2SAT 96
--- NOTE | 2025-01-19 09:29 | P.EN_ITS ---
Event Note Date of Service: 01/19/25 Event Note: Consult placed to hospitalist service for evaluation of intermittent low back pain. The patient did undergo LP 12/16 which was ultimately negative for infectious etiology/encephalitis. For the last few days has been experiencing vague low back pain which he has difficulty describing since it is not currently present. He points to the level of the sacrum and bilateral paraspinal areas. No weakness or paresthesias in the bilateral lower extremities. No saddle an esthesia. No bowel/bladder dysfunction. Full flexion and extension. Denies any pain of the lumbar spine. No alarm symptoms. This is likely musculoskeletal in nature. Recommend anti-inflammatories, ice packs. Can also use Robaxin as needed. Recommend out of bed. If symptoms worsen, please contact hospitalist office. There is also request to evaluate the right wrist. There is a scattered macular erythematous rash of the dorsum and ventral surface of the right wrist consistent with a contact dermatitis likely secondary to wrist bands as he also had similar rash on the left wrist with superimposed fungal infection. There is no evidence of fungal infection of the right wrist at this time. Recommend hydrocortisone cream twice daily as needed for rash of the RIGHT wrist. Continue clotrimazole on LEFT wrist as this is greatly improved. Time Spent With Patient Time: Total time managing care of this patient today ____ minutes.
[2025-01-19] MEDS: Nystatin Powder 15 GM BOTTLE 1 APPL TOPICAL (09:32)
[2025-01-19] MEDS: Clotrimazole 1 % Cream 15 GM TUBE 1 APPL TOPICAL ×2 (09:35→20:40)
[2025-01-19] MEDS: Acetaminophen 325 MG TABLET 650 MG PO (11:15)
[2025-01-19] MEDS: methocarbamoL 750 MG TABLET PO (11:15)
[2025-01-19 12:05] LABS: Alanine Aminotransferase 189 U/L (0-40); Albumin Level 4.3 g/dL (3.5-5.0); Alkaline Phosphatase 127 U/L (39-117); Anion Gap 18 (12-20); Aspartate Amino Transferase 66 U/L (5-37); Bilirubin Total 0.3 mg/dL (0.0-1.0); Blood Urea Nitrogen 17 mg/dL (9-16); Calcium 9.5 mg/dL (8.4-10.2); Carbon Dioxide 22 mmol/L (22-29); Chloride 99 mmol/L (96-108); Creatinine Clr Calc Pharmacy 87.4; Estimated Glomerular Filt Rate > 60; Glucose Random 497 mg/dL (60-115); Potassium 4.2 mmol/L (3.3-5.1); Sodium 135 mmol/L (135-145); Total Protein 7.4 g/dL (6.5-8.0)
[2025-01-19] MEDS: Insulin Lispro 100 UNIT/ML 3 ML VIAL SUBCUT ×3 (12:48→20:40)
[2025-01-19 13:00] LABS: Estimated Average Glucose 160 mg/dL; Hemoglobin A1C 214.1051 umol/L; Hemoglobin A1c % 7.2 % (<6.0); Total Hemoglobin (HGBA1C) 3891.6543 umol/L
[2025-01-19 13:09] LABS: Cholesterol 287 mg/dL (<200); HDL Cholesterol 42 mg/dL (>40); Triglycerides 1218 mg/dL (<150)
--- NOTE | 2025-01-19 14:01 | PM.EVENT ---
Event Note Date of Service: 01/19/25 Event Note: Patient with new onset type 2 diabetes. Hemoglobin A1c 7.2%. Random glucose this afternoon 470. Recommend POC glucose, sliding scale insulin. Agree with metformin 1000 mg daily. Encouraged diabetic diet. Random lipid profile also revealed a triglyceride level of 1200. The patient has no nausea, vomiting, abdominal pain. He is tolerating diet. No history of pancreatitis. Recommend low-fat diet for now and recheck lipid profile in the morning fasting. Consider therapy adjustment, olanzepine, given trig elevation and elevated LFTs. Previous trig level 205 earlier this month. Will follow Time Spent With Patient Time: Total time managing care of this patient today ____ minutes.
[2025-01-19] MEDS: Lurasidone HCl 20 MG TABLET PO (17:02)
[2025-01-19] MEDS: metFORMIN HCl ER 500 MG TAB.ER.24H 1000 MG PO (17:02)
[2025-01-19 17:05] LABS: Glucose, Whole Blood 320 mg/dL (60-115)
[2025-01-19 19:35] VITALS: BP 139/91; PULSE 101; RESP 18; TEMP 36.6; O2SAT 97
[2025-01-19 20:20] LABS: Glucose, Whole Blood 333 mg/dL (60-115)
[2025-01-19] MEDS: Prazosin HCL 1 MG CAPSULE 3 MG PO (20:30)
[2025-01-19] MEDS: OLANZapine 10 MG TABLET 20 MG PO (20:31)
[2025-01-19] MEDS: Lithium Carbonate 300 MG TABLET PO (20:31)
--- NOTE | 2025-01-19 20:36 | HO.PSYCHPN ---
Subjective Subjective Date of Service: 01/19/25 Reason For Visit: Catatonia Subjective Notes: Conditional Voluntary Interim History: Pt sleeping through the night. He reports doing well. He reports eating a lot He denies SI/HI. No overt psychosis or delusions. CMP showed critical BS of 497. A1c 7.2% LFT elevation AST 66, Alt 189, Tricia phos 127. Triglycerides 1218 (non fasting but will repeat in AM) Cholesterol 287 Mental Status Exam Mental Status Exam Narrative: Appearance: casually groomed, good hygiene, in NAD behavior: cooperative Psychomotor: no agitation or retardation noted Speech: clear, normal rate/rhythm/volume, spontaneous TP: linear TC:hoping to go home soon Mood: okay Affect: congruent SI: denies HI: none VH/AH: no overt signs Delusions: no overt delusional content reported or noted Insight/judgment: improving Memory/cog: alert, oriented x 4. Diagnostics Vital Signs (24Hr): Vital Signs - 24 hr 01/19/25 08:00 01/19/25 19:35 Temperature 97.7 F 97.9 F Pulse Rate 117 H 101 H Respiratory Rate 18 18 Blood Pressure 120/74 139/91 H Pulse Oximetry 96 97 Oxygen Delivery Method Room Air Room Air BMI result Body Mass Index 25.4 Labs 01/19/25 11:31 Labs: Laboratory Results - last 48 hr 01/19/25 01/19/25 01/19/25 11:31 12:43 16:55 Sodium 135 Potassium 4.2 Chloride 99 Carbon Dioxide 22 Anion Gap 18 BUN 17 H Creatinine 1.32 Estim Creat Clear Calc 87.4 Estimated GFR > 60 POC Glucose 320 H Random Glucose 497 H* Estimat Average Glucose 160 Hemoglobin A1c % 7.2 H Calcium 9.5 Total Bilirubin 0.3 AST 66 H ALT 189 H Alkaline Phosphatase 127 H Ammonia TNP Total Protein 7.4 Albumin 4.3 Triglycerides 1218 H Cholesterol 287 H LDL Cholesterol, Calc TNP HDL Cholesterol 42 TSH 0.90 01/19/25 20:14 Sodium Potassium Chloride Carbon Dioxide Anion Gap BUN Creatinine Estim Creat Clear Calc Estimated GFR POC Glucose 333 H Random Glucose Estimat Average Glucose Hemoglobin A1c % Calcium Total Bilirubin AST ALT Alkaline Phosphatase Ammonia Total Protein Albumin Triglycerides Cholesterol LDL Cholesterol, Calc HDL Cholesterol TSH Medications Medications Current Medications Acetaminophen (Acetaminophen 325 Mg Tablet) 650 mg PO Q6H PRN PRN Reason: Headache/Pain, Scale 1-10 Last Admin: 01/19/25 11:15 Dose: 650 mg Al Hydroxide/Mg Hydroxide (Magnesium Hydrox/Alum Hydrox 30 Ml Oral.Susp) 30 ml PO Q6H PRN PRN Reason: Heartburn/Nausea Clotrimazole (Clotrimazole 1 % Cream 15 Gm Tube) 1 appl TOPICAL BID [facility]; Protocol Stop: 01/20/25 09:01 Last Admin: 01/19/25 09:35 Dose: 1 appl Hydrocortisone (Hydrocortisone 1 % Cream 28.35 Gm Tube) 1 appl TOPICAL BID PRN; Protocol PRN Reason: Rash Hydroxyzine HCl (Hydroxyzine Hcl 25 Mg Tablet) 25 mg PO Q6H PRN PRN Reason: mild anxiety Last Admin: 01/11/25 20:56 Dose: 25 mg Insulin Human Lispro (Insulin Lispro 100 Unit/Ml 3 Ml Vial) 0 unit SUBCUT QIDACHS [facility]; Protocol Last Admin: 01/19/25 17:03 Dose: 8 unit [place] Carbonate ([place] Carbonate 300 Mg Tablet) 300 mg PO BID [facility] Lurasidone HCl (Lurasidone Hcl 20 Mg Tablet) 20 mg PO DAILY@1700 [facility] Last Admin: 01/19/25 17:02 Dose: 20 mg Magnesium Hydroxide (Milk Of Magnesia 30 Ml Oral.Susp) 30 ml PO DAILY PRN PRN Reason: Constipation Metformin HCl (Metformin Hcl Er 500 Mg Tab.Er.24h) 1,000 mg PO DAILY [facility] Last Admin: 01/19/25 17:02 Dose: 1,000 mg Methocarbamol (Methocarbamol 750 Mg Tablet) 750 mg PO TID PRN PRN Reason: LOW BAXK PAIN Last Admin: 01/19/25 11:15 Dose: 750 mg Naloxone HCl (Naloxone Hcl 0.4 Mg/Ml Vial) 0.04 mg IVPUSH Q5M PRN PRN Reason: Excessive sedation or RR < 8 Nicotine Polacrilex (Nicotine Polacrilex 2 Mg Gum) 4 mg BUCCAL Q2H PRN PRN Reason: Nicotine Cravings Nystatin (Nystatin Powder 15 Gm Bottle) 1 appl TOPICAL BID [facility]; Protocol Last Admin: 01/19/25 09:32 Dose: 1 appl Olanzapine (Olanzapine 10 Mg Tablet) 20 mg PO BEDTIME [facility]ADIMIR Prazosin HCl (Prazosin Hcl 1 Mg Capsule) 3 mg PO BEDTIME [facility]; Protocol Last Admin: 01/18/25 20:35 Dose: 3 mg Allergies Allergies Allergy/AdvReac Type Severity Reaction Status Date / Time sertraline [From Zoloft] Allergy Unknown Verified 12/14/24 16:10 Assessment & Plan Assessment & Plan (1) Bipolar I disorder with catatonia: Status: Inactive Code(s): F31.9 - Bipolar disorder, unspecified; F06.1 - Catatonic disorder due to known physiological condition Plan 01/05: restart olanzapine at 5 mg QHS. continue ECT. plan to add an anti-depressant, as the present episode of catatonia appears to be related to a depressive episode. mood stabilizer later. 01/06: clearly psychotic today more than yesterday. increase HS olanzapine to 10 mg, continue ECT tomorrow, #9. 01/07: denies AH prior to ECT. much less HERNAN after ECT, notes his own hunger, observed zealously eating breakfast. continue current mgmt. ECT #10 sunday. 01/08: some AH today. poor sleep per pt, slept 8 hours per staff. ECT #10 tomorrow. DC CO, change to Q5 min checks. continue current mgmt otherwise. 01/09: ECT #10 completed. less HERNAN, more fluid, more affectively expressive. continue current mgmt. 01/10: continues to improve in terms of spontaneity, affective expression. memory continues impaired. continue current mgmt. 01/11: improvement continues. ECT #11 tomorrow. medical consult for wrist lesion. presumed fungal at the moment, will try nystatin powder rather than bacitracin, which has not been helpful. 01/12 ECT was canceled by Dr. Emmanuel given patient's memory issues. Staff reported patient doing better this past weekend, interacting with peers, but patient has only vague memory of it. Patient however agrees that he is eating better. Patient wants medication for bipolar depression; does not remember if he has ever been on lithium before, says his would know. Started on prazosin 1 mg since complaining of nightmare 01/13: ECT yesterday held due to memory issues. increase prazosin to 2 mg QHS for nightmares and olanzapine to 20 mg QHS for AH/insomnia. per lewis, continue ECT tomorrow with bifrontal placement. 01/14: ECT #11 today, changed to bifrontal and 0.25 program for less cognitive s/e. increase prazosin to 3 mg QHS for sleep, continue zyprexa 20 mg QHS as well. continues to have AH at night as well as insomnia. an additional 10 mg zyprexa PRN was added. 01/15: insomnia and AH throughout the night. increase HS zyprexa to 30. ECT tomorrow. otherwise continue current mgmt. 01/16: gains continue. memory improved. slept better last night. still AH once awake overnight, however. no nightmares. ECT #12 completed today. perhaps one more ECT next , then to focus on psychopharm prior to discharge. 01/17 continue current meds. will check cmp prior to starting lithium. hospitalist consult for sharp lower back pain. 01/18 continue tx. 01/19 CMP showed critical BS level of 497, no known DM, ordered A1c- 7.2%, elevation in LFTs AST 66, ALT 189, Alk phos 127. triglycerides very elevated at 1218 (not fasting and will repeat tomorrow morning, but still suspect will be very high), no signs of acute pancreatitis at this point, Cholesterol 287. given this metabolic findings, switching to different antipsychotic other than olanzapine makes most sense. lower olanzapine to 20mg po qhs, can start latuda 20mg po with dinner. Added lispro, POC QIDACH, metformin ER 1000mg po daily, consult to hospitalist. Reason for continued inpatient stay Substantial Risk for: inability to function Time Spent With Patient Time: Total time managing care of this patient today ____ minutes.
[2025-01-20] MEDS: hydrOXYzine HCL 25 MG TABLET PO ×2 (03:40→21:14)
[2025-01-20] MEDS: methocarbamoL 750 MG TABLET PO ×2 (03:40→21:14)
[2025-01-20] MEDS: Acetaminophen 325 MG TABLET 650 MG PO (06:39)
[2025-01-20 07:46] LABS: Glucose, Whole Blood 275 mg/dL (60-115)
[2025-01-20 07:49] VITALS: BP 122/78; PULSE 117; RESP 18; TEMP 36.5; O2SAT 98
[2025-01-20] MEDS: Insulin Lispro 100 UNIT/ML 3 ML VIAL SUBCUT ×4 (08:30→21:06)
[2025-01-20] MEDS: Lithium Carbonate 300 MG TABLET PO ×2 (08:31→21:04)
[2025-01-20] MEDS: metFORMIN HCl ER 500 MG TAB.ER.24H 1000 MG PO ×2 (08:31→21:04)
[2025-01-20 10:22] LABS: Cholesterol 277 mg/dL (<200); HDL Cholesterol 44 mg/dL (>40); Triglycerides 792 mg/dL (<150)
--- NOTE | 2025-01-20 11:16 | P.PNPSI_ITS ---
Subjective Subjective Date of Service: 01/20/25 Reason For Visit: Catatonia Interim History: Met with patient; discussed with team Patient reports he is overall better but not sure if his medications are adequate so that he can remain stable; discussed with patient Dr. Kan's plan for medications and patient agrees to remain on the unit for continued ECT and further medication management. Patient reports trouble sleeping. Mental Status Exam Mental Status Exam Narrative: Appearance: casually groomed, good hygiene, in NAD behavior: cooperative Psychomotor: no agitation or retardation noted Speech: Mild latency; clear, normal rate/rhythm/volume, spontaneous TP: linear TC:hoping to go home soon Mood: okay Affect: congruent SI: denies HI: none VH/AH: no overt signs Delusions: no overt delusional content reported or noted Insight/judgment: improving Memory/cog: alert, oriented x 4. Diagnostics Vital Signs (24Hr): Vital Signs - 24 hr 01/19/25 19:35 01/20/25 07:49 Temperature 97.9 F 97.7 F Pulse Rate 101 H 117 H Respiratory Rate 18 18 Blood Pressure 139/91 H 122/78 Pulse Oximetry 97 98 Oxygen Delivery Method Room Air Room Air BMI result Body Mass Index 25.4 Labs 01/19/25 11:31 Labs: Laboratory Results - last 48 hr 01/19/25 01/19/25 01/19/25 11:31 12:43 16:55 Sodium 135 Potassium 4.2 Chloride 99 Carbon Dioxide 22 Anion Gap 18 BUN 17 H Creatinine 1.32 Estim Creat Clear Calc 87.4 Estimated GFR > 60 POC Glucose 320 H Random Glucose 497 H* Estimat Average Glucose 160 Hemoglobin A1c % 7.2 H Calcium 9.5 Total Bilirubin 0.3 AST 66 H ALT 189 H Alkaline Phosphatase 127 H Ammonia TNP Total Protein 7.4 Albumin 4.3 Triglycerides 1218 H Cholesterol 287 H LDL Cholesterol, Calc TNP HDL Cholesterol 42 TSH 0.90 01/19/25 01/20/25 01/20/25 20:14 07:37 09:52 Sodium Potassium Chloride Carbon Dioxide Anion Gap BUN Creatinine Estim Creat Clear Calc Estimated GFR POC Glucose 333 H 275 H Random Glucose Estimat Average Glucose Hemoglobin A1c % Calcium Total Bilirubin AST ALT Alkaline Phosphatase Ammonia Total Protein Albumin Triglycerides 792 H Cholesterol 277 H LDL Cholesterol, Calc TNP HDL Cholesterol 44 TSH Medications Medications Current Medications Acetaminophen (Acetaminophen 325 Mg Tablet) 650 mg PO Q6H PRN PRN Reason: Headache/Pain, Scale 1-10 Last Admin: 01/20/25 06:39 Dose: 650 mg Al Hydroxide/Mg Hydroxide (Magnesium Hydrox/Alum Hydrox 30 Ml Oral.Susp) 30 ml PO Q6H PRN PRN Reason: Heartburn/Nausea Hydrocortisone (Hydrocortisone 1 % Cream 28.35 Gm Tube) 1 appl TOPICAL BID PRN; Protocol PRN Reason: Rash Hydroxyzine HCl (Hydroxyzine Hcl 25 Mg Tablet) 25 mg PO Q6H PRN PRN Reason: mild anxiety Last Admin: 01/20/25 03:40 Dose: 25 mg Insulin Human Lispro (Insulin Lispro 100 Unit/Ml 3 Ml Vial) 0 unit SUBCUT QIDACHS [facility]; Protocol Last Admin: 01/20/25 08:30 Dose: 6 unit Gum[place] Carbonate (Gumlog Carbonate 300 Mg Tablet) 300 mg PO BID [facility] Last Admin: 01/20/25 08:31 Dose: 300 mg Lurasidone HCl (Lurasidone Hcl 20 Mg Tablet) 20 mg PO DAILY@1700 [facility] Last Admin: 01/19/25 17:02 Dose: 20 mg Magnesium Hydroxide (Milk Of Magnesia 30 Ml Oral.Susp) 30 ml PO DAILY PRN PRN Reason: Constipation Metformin HCl (Metformin Hcl Er 500 Mg Tab.Er.24h) 1,000 mg PO DAILY [facility] Last Admin: 01/20/25 08:31 Dose: 1,000 mg Methocarbamol (Methocarbamol 750 Mg Tablet) 750 mg PO TID PRN PRN Reason: LOW BAXK PAIN Last Admin: 01/20/25 03:40 Dose: 750 mg Naloxone HCl (Naloxone Hcl 0.4 Mg/Ml Vial) 0.04 mg IVPUSH Q5M PRN PRN Reason: Excessive sedation or RR < 8 Nicotine Polacrilex (Nicotine Polacrilex 2 Mg Gum) 4 mg BUCCAL Q2H PRN PRN Reason: Nicotine Cravings Nystatin (Nystatin Powder 15 Gm Bottle) 1 appl TOPICAL BID [facility]; Protocol Last Admin: 01/19/25 20:31 Dose: Not Given Olanzapine (Olanzapine 10 Mg Tablet) 20 mg PO BEDTIME [facility] Last Admin: 01/19/25 20:31 Dose: 20 mg Prazosin HCl (Prazosin Hcl 1 Mg Capsule) 3 mg PO BEDTIME [facility]; Protocol Last Admin: 01/19/25 20:30 Dose: 3 mg Allergies Allergies Allergy/AdvReac Type Severity Reaction Status Date / Time sertraline [From Zoloft] Allergy Unknown Verified 12/14/24 16:10 Assessment & Plan Assessment & Plan (1) Bipolar I disorder with catatonia: Status: Inactive Code(s): F31.9 - Bipolar disorder, unspecified; F06.1 - Catatonic disorder due to known physiological condition Plan 01/05: restart olanzapine at 5 mg QHS. continue ECT. plan to add an anti- depressant, as the present episode of catatonia appears to be related to a depressive episode. mood stabilizer later. 01/06: clearly psychotic today more than yesterday. increase HS olanzapine to 10 mg, continue ECT tomorrow, #9. 01/07: denies AH prior to ECT. much less HERNAN after ECT, notes his own hunger, observed zealously eating breakfast. continue current mgmt. ECT #10 sunday. 01/08: some AH today. poor sleep per pt, slept 8 hours per staff. ECT #10 tomorrow. DC CO, change to Q5 min checks. continue current mgmt otherwise. 01/09: ECT #10 completed. less HERNAN, more fluid, more affectively expressive. continue current mgmt. 01/10: continues to improve in terms of spontaneity, affective expression. memory continues impaired. continue current mgmt. 01/11: improvement continues. ECT #11 tomorrow. medical consult for wrist lesion. presumed fungal at the moment, will try nystatin powder rather than bacitracin, which has not been helpful. 01/12 ECT was canceled by Dr. Emmanuel given patient's memory issues. Staff reported patient doing better this past weekend, interacting with peers, but patient has only vague memory of it. Patient however agrees that he is eating better. Patient wants medication for bipolar depression; does not remember if he has ever been on lithium before, says his would know. Started on prazosin 1 mg since complaining of nightmare 01/13: ECT yesterday held due to memory issues. increase prazosin to 2 mg QHS for nightmares and olanzapine to 20 mg QHS for AH/insomnia. per lewis, continue ECT tomorrow with bifrontal placement. 01/14: ECT #11 today, changed to bifrontal and 0.25 program for less cognitive s/e. increase prazosin to 3 mg QHS for sleep, continue zyprexa 20 mg QHS as well. continues to have AH at night as well as insomnia. an additional 10 mg zyprexa PRN was added. 01/15: insomnia and AH throughout the night. increase HS zyprexa to 30. ECT tomorrow. otherwise continue current mgmt. 01/16: gains continue. memory improved. slept better last night. still AH once awake overnight, however. no nightmares. ECT #12 completed today. perhaps one more ECT next , then to focus on psychopharm prior to discharge. 01/17 continue current meds. will check cmp prior to starting lithium. hospitalist consult for sharp lower back pain. 01/18 continue tx. 01/19 CMP showed critical BS level of 497, no known DM, ordered A1c- 7.2%, elevation in LFTs AST 66, ALT 189, Alk phos 127. triglycerides very elevated at 1218 (not fasting and will repeat tomorrow morning, but still suspect will be very high), no signs of acute pancreatitis at this point, Cholesterol 287. given this metabolic findings, switching to different antipsychotic other than olanzapine makes most sense. lower olanzapine to 20mg po qhs, can start latuda 20mg po with dinner. Added lispro, POC QIDACH, metformin ER 1000mg po daily, consult to hospitalist. 01/20 Patient reports he is overall better but not sure if his medications are adequate so that he can remain stable; discussed with patient Dr. Kan's plan for medications and patient agrees to remain on the unit for continued ECT and further medication management (other considerations include Vraylar, Vraylar instead of Zyprexa, Wellbutrin, Lamictal...). Patient reports trouble sleeping. -regarding sign out, patient has been responding well to ECT and agrees he is doing better. -Patient currently on: Latuda 20 mg at dinnertime Zyprexa 20 mg q.h.s. And was started on lithium 300 mg b.i.d. Patient educated on: diagnosis, medication risk/benefits and medical condition Informed Consent: understands and further education needed Reason for continued inpatient stay Substantial Risk for: rapid decompensation Time Spent With Patient Time: Total time managing care of this patient today ____ minutes.
[2025-01-20 11:56] LABS: Glucose, Whole Blood 336 mg/dL (60-115)
--- NOTE | 2025-01-20 12:43 | PM.EVENT ---
Event Note Date of Service: 01/20/25 Event Note: Follow up from event note 01/19. Fasting lipid profile was ordered but unfortunately was collected nonfasting. However, there was improvement in trig to 792, total cholesterol 277. LDL unable to be calculated d/t trig >400. Pt would benefit from omega 3 fatty acids however not on formulary. Will initiate fenofirbrate 54mg daily. Lifestyle modifications will be the cornerstone of management including better management of glucose levels/insulin resistance and low fat diet. Avoidance of alcohol should also be pursued. Recommend increasing metformin to 1000mg ER BID. Continue ssi. Monitor glucose levels. Recommend diabetic diet. Thank you for allowing me to participate in this consult. Signing off at this time. Please do not hesitate to call for further questions. Time Spent With Patient Time: Total time managing care of this patient today ____ minutes.
[2025-01-20] MEDS: Clotrimazole 1 % Cream 15 GM TUBE 1 APPL TOPICAL (15:42)
[2025-01-20] MEDS: Nystatin Powder 15 GM BOTTLE 1 APPL TOPICAL (15:42)
[2025-01-20 16:53] LABS: Glucose, Whole Blood 239 mg/dL (60-115)
[2025-01-20] MEDS: Lurasidone HCl 20 MG TABLET PO (17:02)
[2025-01-20] MEDS: Fenofibrate 54 MG TABLET PO (17:02)
[2025-01-20 20:10] VITALS: BP 108/74; PULSE 88; RESP 16; TEMP 37.2; O2SAT 97
[2025-01-20 20:20] LABS: Glucose, Whole Blood 211 mg/dL (60-115)
[2025-01-20] MEDS: OLANZapine 10 MG TABLET 20 MG PO (21:03)
[2025-01-20] MEDS: Prazosin HCL 1 MG CAPSULE 3 MG PO (21:04)
--- NOTE | 2025-01-20 23:09 | HO.ECTPROC ---
ECT Procedure Note Diagnosis/Treatment Date of Service: 01/16/25 Diagnosis: Bipolar disorder and Catatonia Previous ECT Date: 01/09/25 Current Treatment Number: 12 Treatment: Series Interval Clinical Notes: Patient seems significantly improved continues to complain of vague auditory hallucination at night and insomnia. Much ballesteros affect was able to talk about his daughter's some slowed mentation and some degree of retrograde amnesia markedly improved mood and alertness no gross delusional thinking Time: Total time managing care of this patient today ____ minutes. ECT Settings Device: THYMATRON DGx Electrode Placement: Bifrontal Program/Pulse Width: 0.25 Energy Percent: 100 Seizure Duration By EEG (in seconds): 29 Medications Administration General Anesthetic: Etomidate (14) Muscle Relaxant: Succinylcholine (140) Ancillary Medications Cardiovascular Medications: Labetolol (5 plus 5) Airway Management Airway Management: Bag Mask Ventilation Treatment Recommendations No Changes Recommended: No change Pt Tolerated Procedure w/o Issue: Yes
[2025-01-21] MEDS: methocarbamoL 750 MG TABLET PO (04:28)
[2025-01-21] MEDS: hydrOXYzine HCL 25 MG TABLET PO (04:28)
[2025-01-21] MEDS: Acetaminophen 325 MG TABLET 650 MG PO (04:33)
[2025-01-21 07:45] LABS: Glucose, Whole Blood 311 mg/dL (60-115)
[2025-01-21 07:48] VITALS: BP 144/84; PULSE 111; RESP 16; TEMP 36.9; O2SAT 96
[2025-01-21] MEDS: metFORMIN HCl ER 500 MG TAB.ER.24H 1000 MG PO ×2 (08:07→20:57)
[2025-01-21] MEDS: Fenofibrate 54 MG TABLET PO (08:08)
[2025-01-21] MEDS: Insulin Lispro 100 UNIT/ML 3 ML VIAL SUBCUT ×4 (08:08→21:11)
[2025-01-21] MEDS: Lithium Carbonate 300 MG TABLET PO (08:08)
--- NOTE | 2025-01-21 08:48 | P.PNPSI_ITS ---
Subjective Subjective Date of Service: 01/21/25 Reason For Visit: Catatonia Interim History: Met with patient; discussed with team; reviewed labs Patient reports he is doing the same, overall better. Still trouble sleeping. And agrees for medication adjustment. Patient had significantly elevated TAG, was started on fenofibrate; however lab was taken later in the day and on inquiry patient said he did eat breakfast right before lab; will repeat lipid panel and make sure it is fasting before concluding he needs to be on special diet/fenofibrate -review of past lipid panels show consistently only mildly elevated accept for few times when they were taken later in the day Mental Status Exam Mental Status Exam Narrative: Appearance: casually groomed, good hygiene, in NAD behavior: cooperative Psychomotor: no agitation or retardation noted Speech: Mild latency; clear, normal rate/rhythm/volume, spontaneous TP: linear TC:hoping to go home soon Mood: okay Affect: congruent SI: denies HI: none VH/AH: no overt signs Delusions: no overt delusional content reported or noted Insight/judgment: improving Memory/cog: alert, oriented x 4. Diagnostics Vital Signs (24Hr): Vital Signs - 24 hr 01/20/25 20:10 01/21/25 07:48 Temperature 98.9 F 98.4 F Pulse Rate 88 111 H Respiratory Rate 16 16 Blood Pressure 108/74 144/84 H Pulse Oximetry 97 96 Oxygen Delivery Method Room Air Room Air BMI result Body Mass Index 25.4 Labs 01/19/25 11:31 Labs: Laboratory Results - last 48 hr 01/19/25 01/19/25 01/19/25 11:31 12:43 16:55 Sodium 135 Potassium 4.2 Chloride 99 Carbon Dioxide 22 Anion Gap 18 BUN 17 H Creatinine 1.32 Estim Creat Clear Calc 87.4 Estimated GFR > 60 POC Glucose 320 H Random Glucose 497 H* Estimat Average Glucose 160 Hemoglobin A1c % 7.2 H Calcium 9.5 Total Bilirubin 0.3 AST 66 H ALT 189 H Alkaline Phosphatase 127 H Ammonia TNP Total Creatine Kinase Total Protein 7.4 Albumin 4.3 Triglycerides 1218 H Cholesterol 287 H LDL Cholesterol, Calc TNP HDL Cholesterol 42 TSH 0.90 01/19/25 01/20/25 01/20/25 20:14 07:37 09:52 Sodium Potassium Chloride Carbon Dioxide Anion Gap BUN Creatinine Estim Creat Clear Calc Estimated GFR POC Glucose 333 H 275 H Random Glucose Estimat Average Glucose Hemoglobin A1c % Calcium Total Bilirubin AST ALT Alkaline Phosphatase Ammonia Total Creatine Kinase 21 L Total Protein Albumin Triglycerides 792 H Cholesterol 277 H LDL Cholesterol, Calc TNP HDL Cholesterol 44 TSH 01/20/25 01/20/25 01/20/25 11:52 16:49 20:15 Sodium Potassium Chloride Carbon Dioxide Anion Gap BUN Creatinine Estim Creat Clear Calc Estimated GFR POC Glucose 336 H 239 H 211 H Random Glucose Estimat Average Glucose Hemoglobin A1c % Calcium Total Bilirubin AST ALT Alkaline Phosphatase Ammonia Total Creatine Kinase Total Protein Albumin Triglycerides Cholesterol LDL Cholesterol, Calc HDL Cholesterol TSH 01/21/25 07:40 Sodium Potassium Chloride Carbon Dioxide Anion Gap BUN Creatinine Estim Creat Clear Calc Estimated GFR POC Glucose 311 H Random Glucose Estimat Average Glucose Hemoglobin A1c % Calcium Total Bilirubin AST ALT Alkaline Phosphatase Ammonia Total Creatine Kinase Total Protein Albumin Triglycerides Cholesterol LDL Cholesterol, Calc HDL Cholesterol TSH Medications Medications Current Medications Acetaminophen (Acetaminophen 325 Mg Tablet) 650 mg PO Q6H PRN PRN Reason: Headache/Pain, Scale 1-10 Last Admin: 01/21/25 04:33 Dose: 650 mg Al Hydroxide/Mg Hydroxide (Magnesium Hydrox/Alum Hydrox 30 Ml Oral.Susp) 30 ml PO Q6H PRN PRN Reason: Heartburn/Nausea Fenofibrate (Fenofibrate 54 Mg Tablet) 54 mg PO DAILY [facility] Last Admin: 01/21/25 08:08 Dose: 54 mg Hydrocortisone (Hydrocortisone 1 % Cream 28.35 Gm Tube) 1 appl TOPICAL BID PRN; Protocol PRN Reason: Rash Hydroxyzine HCl (Hydroxyzine Hcl 25 Mg Tablet) 25 mg PO Q6H PRN PRN Reason: mild anxiety Last Admin: 01/21/25 04:28 Dose: 25 mg Insulin Human Lispro (Insulin Lispro 100 Unit/Ml 3 Ml Vial) 0 unit SUBCUT QIDACHS [facility]; Protocol Last Admin: 01/21/25 08:08 Dose: 8 unit [place] Carbonate ([place] Carbonate 300 Mg Tablet) 300 mg PO BID [facility] Last Admin: 01/21/25 08:08 Dose: 300 mg Lurasidone HCl (Lurasidone Hcl 20 Mg Tablet) 20 mg PO DAILY@1700 [facility] Last Admin: 01/20/25 17:02 Dose: 20 mg Magnesium Hydroxide (Milk Of Magnesia 30 Ml Oral.Susp) 30 ml PO DAILY PRN PRN Reason: Constipation Metformin HCl (Metformin Hcl Er 500 Mg Tab.Er.24h) 1,000 mg PO BID [facility] Last Admin: 01/21/25 08:07 Dose: 1,000 mg Methocarbamol (Methocarbamol 750 Mg Tablet) 750 mg PO TID PRN PRN Reason: LOW BAXK PAIN Last Admin: 01/21/25 04:28 Dose: 750 mg Naloxone HCl (Naloxone Hcl 0.4 Mg/Ml Vial) 0.04 mg IVPUSH Q5M PRN PRN Reason: Excessive sedation or RR < 8 Nicotine Polacrilex (Nicotine Polacrilex 2 Mg Gum) 4 mg BUCCAL Q2H PRN PRN Reason: Nicotine Cravings Nystatin (Nystatin Powder 15 Gm Bottle) 1 appl TOPICAL BID [facility]; Protocol Last Admin: 01/21/25 08:10 Dose: Not Given Olanzapine (Olanzapine 10 Mg Tablet) 20 mg PO BEDTIME [facility] Last Admin: 01/20/25 21:03 Dose: 20 mg Prazosin HCl (Prazosin Hcl 1 Mg Capsule) 3 mg PO BEDTIME [facility]; Protocol Last Admin: 01/20/25 21:04 Dose: 3 mg Allergies Allergies Allergy/AdvReac Type Severity Reaction Status Date / Time sertraline [From Zoloft] Allergy Unknown Verified 12/14/24 16:10 Assessment & Plan Assessment & Plan (1) Bipolar I disorder with catatonia: Status: Acute Code(s): F31.9 - Bipolar disorder, unspecified; F06.1 - Catatonic disorder due to known physiological condition (2) New onset type 2 diabetes mellitus: Status: Acute Code(s): E11.9 - Type 2 diabetes mellitus without complications Plan 01/05: restart olanzapine at 5 mg QHS. continue ECT. plan to add an anti- depressant, as the present episode of catatonia appears to be related to a depressive episode. mood stabilizer later. 01/06: clearly psychotic today more than yesterday. increase HS olanzapine to 10 mg, continue ECT tomorrow, #9. 01/07: denies AH prior to ECT. much less HERNAN after ECT, notes his own hunger, observed zealously eating breakfast. continue current mgmt. ECT #10 sunday. 01/08: some AH today. poor sleep per pt, slept 8 hours per staff. ECT #10 tomorrow. DC CO, change to Q5 min checks. continue current mgmt otherwise. 01/09: ECT #10 completed. less HERNAN, more fluid, more affectively expressive. continue current mgmt. 01/10: continues to improve in terms of spontaneity, affective expression. memory continues impaired. continue current mgmt. 01/11: improvement continues. ECT #11 tomorrow. medical consult for wrist lesion. presumed fungal at the moment, will try nystatin powder rather than bacitracin, which has not been helpful. 01/12 ECT was canceled by Dr. Emmanuel given patient's memory issues. Staff reported patient doing better this past weekend, interacting with peers, but patient has only vague memory of it. Patient however agrees that he is eating better. Patient wants medication for bipolar depression; does not remember if he has ever been on lithium before, says his would know. Started on prazosin 1 mg since complaining of nightmare 01/13: ECT yesterday held due to memory issues. increase prazosin to 2 mg QHS for nightmares and olanzapine to 20 mg QHS for AH/insomnia. per lewis, continue ECT tomorrow with bifrontal placement. 01/14: ECT #11 today, changed to bifrontal and 0.25 program for less cognitive s/e. increase prazosin to 3 mg QHS for sleep, continue zyprexa 20 mg QHS as well. continues to have AH at night as well as insomnia. an additional 10 mg zyprexa PRN was added. 01/15: insomnia and AH throughout the night. increase HS zyprexa to 30. ECT tomorrow. otherwise continue current mgmt. 01/16: gains continue. memory improved. slept better last night. still AH once awake overnight, however. no nightmares. ECT #12 completed today. perhaps one more ECT next , then to focus on psychopharm prior to discharge. 01/17 continue current meds. will check cmp prior to starting lithium. hospitalist consult for sharp lower back pain. 01/18 continue tx. 01/19 CMP showed critical BS level of 497, no known DM, ordered A1c- 7.2%, elevation in LFTs AST 66, ALT 189, Alk phos 127. triglycerides very elevated at 1218 (not fasting and will repeat tomorrow morning, but still suspect will be very high), no signs of acute pancreatitis at this point, Cholesterol 287. given this metabolic findings, switching to different antipsychotic other than olanzapine makes most sense. lower olanzapine to 20mg po qhs, can start latuda 20mg po with dinner. Added lispro, POC QIDACH, metformin ER 1000mg po daily, consult to hospitalist. 01/20 Patient reports he is overall better but not sure if his medications are adequate so that he can remain stable; discussed with patient Dr. Kan's plan for medications and patient agrees to remain on the unit for continued ECT and further medication management (other considerations include Vraylar, Vraylar instead of Zyprexa, Wellbutrin, Lamictal...). Patient reports trouble sleeping. -regarding sign out, patient has been responding well to ECT and agrees he is doing better. -Patient currently on: Latuda 20 mg at dinnertime Zyprexa 20 mg q.h.s. And was started on lithium 300 mg b.i.d. 01/21 Patient reports he is doing the same, overall better. Still trouble sleeping. And agrees for medication adjustment. Patient had significantly elevated TAG, was started on fenofibrate; however lab was taken later in the day and on inquiry patient said he did eat breakfast right before lab; will repeat lipid panel and make sure it is fasting before concluding he needs to be on special diet/fenofibrate -review of past lipid panels show consistently only mildly elevated accept for few times when they were taken later in the day Continue Latuda 20 mg at dinnertime Continue Zyprexa 20 mg q.h.s. Switch to lithium ER 600 mg q.h.s. for 1 time dosing and possibly to help asleep Start clonidine 0.1 mg q.h.s. for insomnia Repeat lipid panel Patient educated on: diagnosis, medication risk/benefits, ECT and medical condition Informed Consent: understands Reason for continued inpatient stay Substantial Risk for: rapid decompensation Time Spent With Patient Time: Total time managing care of this patient today ____ minutes.
[2025-01-21 11:45] LABS: Glucose, Whole Blood 220 mg/dL (60-115)
--- NOTE | 2025-01-21 13:51 | MHC.CLN ---
NUTRITION ALERTED BY NURSING THAT PATIENT HAVING DIFFICULTY WITH FOOD CHOICES ON CURRENT DIET. VISITED WITH PATIENT AND NURSE IN THE COMMON AREA. SEEN BY HOSPITALIST WITH RECOMMENDATION FOR LOW FAT DIET DUE TO RECENT HIGH TRIGLYCERIDES. PATIENT ALSO WITH DIABETES. HX OF CATATONIA WITH ICU ADM AND REQUIRED TPN FOR NUTRITION/HYDRATION. CHANGING DIET TO REGULAR TO PROMOTE PO INTAKE/ALLOW FOR MORE FOOD CHOICES. MENU REVIEWED WITH PATIENT. CONTINUE TO PROVIDE FOOD PREFERENCES ABLE. ENCOURAGE LOWER SUGAR DESSERTS/BEVERAGES AND LIMIT HIGHER FAT FOODS.
[2025-01-21 16:52] LABS: Glucose, Whole Blood 236 mg/dL (60-115)
[2025-01-21] MEDS: Lurasidone HCl 20 MG TABLET PO (17:13)
[2025-01-21 20:00] VITALS: BP 147/97; PULSE 92; RESP 16; TEMP 36.9; O2SAT 100
[2025-01-21 20:55] VITALS: BP 132/94
[2025-01-21] MEDS: Prazosin HCL 1 MG CAPSULE 3 MG PO (20:55)
[2025-01-21] MEDS: OLANZapine 10 MG TABLET 20 MG PO (20:56)
[2025-01-21 20:57] VITALS: BP 132/94
[2025-01-21] MEDS: Lithium Carbonate ER 300 MG TABLET.ER 600 MG PO (20:57)
[2025-01-21] MEDS: cloNIDine HCL 0.1 MG TABLET PO (20:57)
[2025-01-21 21:00] VITALS: BP 132/94; PULSE 94; RESP 18; TEMP 36.4; O2SAT 99
[2025-01-21 21:08] LABS: Glucose, Whole Blood 174 mg/dL (60-115)
[2025-01-22 07:00] VITALS: BMI 25.7
[2025-01-22 07:30] VITALS: BP 110/69; PULSE 112; RESP 16; TEMP 36.9; O2SAT 98
[2025-01-22 07:41] LABS: Glucose, Whole Blood 212 mg/dL (60-115)
[2025-01-22 08:27] LABS: Cholesterol 262 mg/dL (<200); HDL Cholesterol 43 mg/dL (>40); Triglycerides 487 mg/dL (<150)
[2025-01-22] MEDS: Insulin Lispro 100 UNIT/ML 3 ML VIAL SUBCUT ×2 (08:39→20:13)
[2025-01-22] MEDS: Fenofibrate 54 MG TABLET PO (08:41)
[2025-01-22] MEDS: metFORMIN HCl ER 500 MG TAB.ER.24H 1000 MG PO ×2 (08:41→20:14)
[2025-01-22 09:20] LABS: Reflex LDLD? Yes
--- NOTE | 2025-01-22 10:34 | HO.PSYCHPN ---
Subjective Subjective Date of Service: 01/22/25 Reason For Visit: Catatonia Interim History: met with pt; discussed with team having nightmares and agrees to increased prazosin Mental Status Exam Mental Status Exam Narrative: Appearance: casually groomed, good hygiene, in NAD behavior: cooperative Psychomotor: no agitation or retardation noted Speech: Mild latency; clear, normal rate/rhythm/volume, spontaneous TP: linear TC:hoping to go home soon Mood: okay Affect: congruent SI: denies HI: none VH/AH: no overt signs Delusions: no overt delusional content reported or noted Insight/judgment: improving Memory/cog: alert, oriented x 4. Diagnostics Vital Signs (24Hr): Vital Signs - 24 hr 01/21/25 20:00 01/21/25 20:55 01/21/25 20:57 Temperature 98.5 F Pulse Rate 92 Respiratory Rate 16 Blood Pressure 147/97 H 132/94 H 132/94 H Pulse Oximetry 100 Oxygen Delivery Method Room Air 01/21/25 21:00 01/22/25 07:30 Temperature 97.5 F 98.4 F Pulse Rate 94 112 H Respiratory Rate 18 16 Blood Pressure 132/94 H 110/69 Pulse Oximetry 99 98 Oxygen Delivery Method Room Air Room Air BMI result Body Mass Index 25.4 Labs 01/19/25 11:31 Labs: Laboratory Results - last 48 hr 01/20/25 01/20/25 01/20/25 09:52 11:52 16:49 POC Glucose 336 H 239 H Total Creatine Kinase 21 L Triglycerides Cholesterol LDL Cholesterol, Calc HDL Cholesterol 01/20/25 01/21/25 01/21/25 20:15 07:40 11:41 POC Glucose 211 H 311 H 220 H Total Creatine Kinase Triglycerides Cholesterol LDL Cholesterol, Calc HDL Cholesterol 01/21/25 01/21/25 01/22/25 16:47 21:01 07:32 POC Glucose 236 H 174 H 212 H Total Creatine Kinase Triglycerides Cholesterol LDL Cholesterol, Calc HDL Cholesterol 01/22/25 07:41 POC Glucose Total Creatine Kinase Triglycerides 487 H Cholesterol 262 H LDL Cholesterol, Calc TNP HDL Cholesterol 43 Medications Medications Current Medications Acetaminophen (Acetaminophen 325 Mg Tablet) 650 mg PO Q6H PRN PRN Reason: Headache/Pain, Scale 1-10 Last Admin: 01/21/25 04:33 Dose: 650 mg Al Hydroxide/Mg Hydroxide (Magnesium Hydrox/Alum Hydrox 30 Ml Oral.Susp) 30 ml PO Q6H PRN PRN Reason: Heartburn/Nausea Clonidine HCl (Clonidine Hcl 0.1 Mg Tablet) 0.1 mg PO BEDTIME [facility]; Protocol Last Admin: 01/21/25 20:57 Dose: 0.1 mg Fenofibrate (Fenofibrate 54 Mg Tablet) 54 mg PO DAILY [facility] Last Admin: 01/22/25 08:41 Dose: 54 mg Hydrocortisone (Hydrocortisone 1 % Cream 28.35 Gm Tube) 1 appl TOPICAL BID PRN; Protocol PRN Reason: Rash Hydroxyzine HCl (Hydroxyzine Hcl 25 Mg Tablet) 25 mg PO Q6H PRN PRN Reason: mild anxiety Last Admin: 01/21/25 04:28 Dose: 25 mg Insulin Human Lispro (Insulin Lispro 100 Unit/Ml 3 Ml Vial) 0 unit SUBCUT QIDACHS [facility]; Protocol Last Admin: 01/22/25 08:39 Dose: 4 unit [place] Carbonate ([place] Carbonate Er 300 Mg Tablet.Er) 600 mg PO BEDTIME [facility] Last Admin: 01/21/25 20:57 Dose: 600 mg Lurasidone HCl (Lurasidone Hcl 20 Mg Tablet) 20 mg PO DAILY@1700 [facility] Last Admin: 01/21/25 17:13 Dose: 20 mg Magnesium Hydroxide (Milk Of Magnesia 30 Ml Oral.Susp) 30 ml PO DAILY PRN PRN Reason: Constipation Metformin HCl (Metformin Hcl Er 500 Mg Tab.Er.24h) 1,000 mg PO BID [facility] Last Admin: 01/22/25 08:41 Dose: 1,000 mg Methocarbamol (Methocarbamol 750 Mg Tablet) 750 mg PO TID PRN PRN Reason: LOW BAXK PAIN Last Admin: 01/21/25 04:28 Dose: 750 mg Nicotine Polacrilex (Nicotine Polacrilex 2 Mg Gum) 4 mg BUCCAL Q2H PRN PRN Reason: Nicotine Cravings Nystatin (Nystatin Powder 15 Gm Bottle) 1 appl TOPICAL BID [facility]; Protocol Last Admin: 01/21/25 21:50 Dose: Not Given Olanzapine (Olanzapine 10 Mg Tablet) 20 mg PO BEDTIME [facility] Last Admin: 01/21/25 20:56 Dose: 20 mg Prazosin HCl (Prazosin Hcl 1 Mg Capsule) 3 mg PO BEDTIME [facility]; Protocol Last Admin: 01/21/25 20:55 Dose: 3 mg Allergies Allergies Allergy/AdvReac Type Severity Reaction Status Date / Time sertraline [From Zoloft] Allergy Unknown Verified 12/14/24 16:10 Assessment & Plan Assessment & Plan (1) Bipolar I disorder with catatonia: Status: Acute Code(s): F31.9 - Bipolar disorder, unspecified; F06.1 - Catatonic disorder due to known physiological condition (2) New onset type 2 diabetes mellitus: Status: Acute Code(s): E11.9 - Type 2 diabetes mellitus without complications Plan 01/05: restart olanzapine at 5 mg QHS. continue ECT. plan to add an anti-depressant, as the present episode of catatonia appears to be related to a depressive episode. mood stabilizer later. 01/06: clearly psychotic today more than yesterday. increase HS olanzapine to 10 mg, continue ECT tomorrow, #9. 01/07: denies AH prior to ECT. much less HERNAN after ECT, notes his own hunger, observed zealously eating breakfast. continue current mgmt. ECT #10 sunday. 01/08: some AH today. poor sleep per pt, slept 8 hours per staff. ECT #10 tomorrow. DC CO, change to Q5 min checks. continue current mgmt otherwise. 01/09: ECT #10 completed. less HERNAN, more fluid, more affectively expressive. continue current mgmt. 01/10: continues to improve in terms of spontaneity, affective expression. memory continues impaired. continue current mgmt. 01/11: improvement continues. ECT #11 tomorrow. medical consult for wrist lesion. presumed fungal at the moment, will try nystatin powder rather than bacitracin, which has not been helpful. 01/12 ECT was canceled by Dr. Emmanuel given patient's memory issues. Staff reported patient doing better this past weekend, interacting with peers, but patient has only vague memory of it. Patient however agrees that he is eating better. Patient wants medication for bipolar depression; does not remember if he has ever been on lithium before, says his would know. Started on prazosin 1 mg since complaining of nightmare 01/13: ECT yesterday held due to memory issues. increase prazosin to 2 mg QHS for nightmares and olanzapine to 20 mg QHS for AH/insomnia. per lewis, continue ECT tomorrow with bifrontal placement. 01/14: ECT #11 today, changed to bifrontal and 0.25 program for less cognitive s/e. increase prazosin to 3 mg QHS for sleep, continue zyprexa 20 mg QHS as well. continues to have AH at night as well as insomnia. an additional 10 mg zyprexa PRN was added. 01/15: insomnia and AH throughout the night. increase HS zyprexa to 30. ECT tomorrow. otherwise continue current mgmt. 01/16: gains continue. memory improved. slept better last night. still AH once awake overnight, however. no nightmares. ECT #12 completed today. perhaps one more ECT next , then to focus on psychopharm prior to discharge. 01/17 continue current meds. will check cmp prior to starting lithium. hospitalist consult for sharp lower back pain. 01/18 continue tx. 01/19 CMP showed critical BS level of 497, no known DM, ordered A1c- 7.2%, elevation in LFTs AST 66, ALT 189, Alk phos 127. triglycerides very elevated at 1218 (not fasting and will repeat tomorrow morning, but still suspect will be very high), no signs of acute pancreatitis at this point, Cholesterol 287. given this metabolic findings, switching to different antipsychotic other than olanzapine makes most sense. lower olanzapine to 20mg po qhs, can start latuda 20mg po with dinner. Added lispro, POC QIDACH, metformin ER 1000mg po daily, consult to hospitalist. 01/20 Patient reports he is overall better but not sure if his medications are adequate so that he can remain stable; discussed with patient Dr. Kan's plan for medications and patient agrees to remain on the unit for continued ECT and further medication management (other considerations include Vraylar, Vraylar instead of Zyprexa, Wellbutrin, Lamictal...). Patient reports trouble sleeping. -regarding sign out, patient has been responding well to ECT and agrees he is doing better. -Patient currently on: Latuda 20 mg at dinnertime Zyprexa 20 mg q.h.s. And was started on lithium 300 mg b.i.d. 01/21 Patient reports he is doing the same, overall better. Still trouble sleeping. And agrees for medication adjustment. Patient had significantly elevated TAG, was started on fenofibrate; however lab was taken later in the day and on inquiry patient said he did eat breakfast right before lab; will repeat lipid panel and make sure it is fasting before concluding he needs to be on special diet/fenofibrate -review of past lipid panels show consistently only mildly elevated accept for few times when they were taken later in the day Continue Latuda 20 mg at dinnertime Continue Zyprexa 20 mg q.h.s. Switch to lithium ER 600 mg q.h.s. for 1 time dosing and possibly to help asleep Start clonidine 0.1 mg q.h.s. for insomnia Repeat lipid panel 01/22 same presentation TAG lower on fasting lab but still elevated increasing prazosin for nightmares Patient educated on: diagnosis, medication risk/benefits and ECT Informed Consent: understands Reason for continued inpatient stay Substantial Risk for: stable for discharge and rapid decompensation Time Spent With Patient Time: Total time managing care of this patient today ____ minutes.
[2025-01-22 12:05] LABS: Glucose, Whole Blood 115 mg/dL (60-115)
[2025-01-22 16:50] LABS: Glucose, Whole Blood 101 mg/dL (60-115)
[2025-01-22] MEDS: Acetaminophen 325 MG TABLET 650 MG PO (17:58)
[2025-01-22] MEDS: Lurasidone HCl 20 MG TABLET PO (17:58)
[2025-01-22] MEDS: methocarbamoL 750 MG TABLET PO (17:58)
[2025-01-22 20:00] VITALS: BP 106/75; PULSE 95; RESP 16; TEMP 37.1; O2SAT 98
[2025-01-22 20:14] VITALS: BP 106/75
[2025-01-22] MEDS: Prazosin HCL 1 MG CAPSULE 4 MG PO (20:14)
[2025-01-22] MEDS: OLANZapine 10 MG TABLET 20 MG PO (20:14)
[2025-01-22] MEDS: Lithium Carbonate ER 300 MG TABLET.ER 600 MG PO (20:14)
[2025-01-22 20:22] LABS: Glucose, Whole Blood 230 mg/dL (60-115)
[2025-01-23] VITALS (9 sets, daily range): BP systolic 104–137; BP diastolic 63–88; PULSE 93–104; RESP 14–18; TEMP 36.3–37.2; O2SAT 2–98
[2025-01-23] MEDS: Lactated Ringers 1,000 ML 100 ML IVCONT (07:12)
--- NOTE | 2025-01-23 07:32 | MHC.SHP ---
Pre-Procedural Eval Section A - 24 Hr Update-Section A only Date of Service: 01/23/25 The patient is an INPATIENT: Yes Changes since office visit: Yes Cold of Flu in the past 2 weeks, Yes New Medical Problems, Yes Changes in Medication and Yes Patient answered all questions The patient has been examined within 24 hours of the surgical procedure. The History & Physical has been completed within 30 days and I have reviewed it.: Yes Section B - Complete if H&P > 30 days Chief Complaint: Catatonia Allergies: Allergies Allergy/AdvReac Type Severity Reaction Status Date / Time sertraline [From Zoloft] Allergy Unknown Verified 12/14/24 16:10 Plan I have reviewed the history and physical and performed a pertinent physical examination on my patient. No changes have occurred unless specified. Time Spent With Patient Time: Total time managing care of this patient today ____ minutes.
[2025-01-23 08:32] LABS: LDL Cholesterol Direct 163 mg/dL (<100)
[2025-01-23 09:00] LABS: Glucose, Whole Blood 187 mg/dL (60-115)
[2025-01-23] MEDS: Insulin Lispro 100 UNIT/ML 3 ML VIAL SUBCUT ×3 (09:09→21:02)
--- NOTE | 2025-01-23 09:09 | P.CONAN_ITS ---
[facility] Active Problems Active Problems: All Active Problems Bipolar I disorder with catatonia (Acute) New onset type 2 diabetes mellitus (Acute) Acute hypokalemia (Acute) Past Medical History Medical History (Updated 01/21/25 @ 18:09 by Alex Ordaz MD) Bipolar I disorder with catatonia Acute hypokalemia Sepsis Acute hypoxemic respiratory failure Pneumonia Toxic metabolic encephalopathy Family History Family history of problems with anesthesia: No Surgical History History of Problems with Anesthesia: No Social History Social History Household Members: Spouse and Children Household Members Other:: and 2 daughters Housing: House Do you presently have visiting nurse or other home services: No Unable to assess alcohol history related to: Unable to respond and Refusing to respond Patient Tobacco Use Status: Current everyday Tobacco user Tobacco use type: Cigarette Cigarette Packs Per Day: 1 Cigarettes Per Day: 20.0 Smoked in Last 30 Days: Yes e-Cigarette/Vaping Use: Former Use Patient Interested in Nicotine Replacement: No Patient Given Instructions on How to Stop Smoking: No (declined) Second Hand Smoke Exposure: Yes (people smoking around him) Use of substances other than those prescribed or required for medical reasons: Yes Substance Use Frequency: Occasionally Currently Displaying Signs/Symptoms of Drug Intoxication Withdrawal: No Any prior treatment program specific to substance use: No Have you been hit, kicked, punched, or otherwise hurt by someone within the past year? If so, by whom?: No Do you feel safe in your current relationship?: No Is there a partner from a previous relationship who is making you feel unsafe now?: No Are you made to feel afraid or neglected: No Are you DNR?: No Advance Directives: No Advance Directives Information Provided: No Do you have thoughts of harming others: None Do you have a plan to hurt others: No Plan Recently lost weight without trying: Unsure Eating poorly because of decreased appetite: No Nutrition Risks: No Nutritional Risk Poor oral hygiene: No service: No Sexual orientation: Straight/Heterosexual Meds Allergies Allergy/AdvReac Type Severity Reaction Status Date / Time sertraline [From Zoloft] Allergy Unknown Verified 12/14/24 16:10 Active Medications: Current Medications Acetaminophen (Acetaminophen 325 Mg Tablet) 650 mg PO Q6H PRN PRN Reason: Headache/Pain, Scale 1-10 Last Admin: 04/24/25 17:58 Dose: 650 mg Al Hydroxide/Mg Hydroxide (Magnesium Hydrox/Alum Hydrox 30 Ml Oral.Susp) 30 ml PO Q6H PRN PRN Reason: Heartburn/Nausea Fenofibrate (Fenofibrate 54 Mg Tablet) 54 mg PO DAILY [facility] Last Admin: 01/22/25 08:41 Dose: 54 mg Hydrocortisone (Hydrocortisone 1 % Cream 28.35 Gm Tube) 1 appl TOPICAL BID PRN; Protocol PRN Reason: Rash Hydroxyzine HCl (Hydroxyzine Hcl 25 Mg Tablet) 25 mg PO Q6H PRN PRN Reason: mild anxiety Last Admin: 01/21/25 04:28 Dose: 25 mg Insulin Human Lispro (Insulin Lispro 100 Unit/Ml 3 Ml Vial) 0 unit SUBCUT QIDACHS [facility]; Protocol Last Admin: 01/22/25 20:13 Dose: 4 unit [place] Carbonate ([place] Carbonate Er 300 Mg Tablet.Er) 600 mg PO BEDTIME [facility] Last Admin: 01/22/25 20:14 Dose: 600 mg Lurasidone HCl (Lurasidone Hcl 20 Mg Tablet) 20 mg PO DAILY@1700 [facility] Last Admin: 01/22/25 17:58 Dose: 20 mg Magnesium Hydroxide (Milk Of Magnesia 30 Ml Oral.Susp) 30 ml PO DAILY PRN PRN Reason: Constipation Metformin HCl (Metformin Hcl Er 500 Mg Tab.Er.24h) 1,000 mg PO BID [facility] Last Admin: 01/22/25 20:14 Dose: 1,000 mg Methocarbamol (Methocarbamol 750 Mg Tablet) 750 mg PO TID PRN PRN Reason: LOW BAXK PAIN Last Admin: 01/22/25 17:58 Dose: 750 mg Nicotine Polacrilex (Nicotine Polacrilex 2 Mg Gum) 4 mg BUCCAL Q2H PRN PRN Reason: Nicotine Cravings Nystatin (Nystatin Powder 15 Gm Bottle) 1 appl TOPICAL BID [facility]; Protocol Last Admin: 01/22/25 20:15 Dose: Not Given Olanzapine (Olanzapine 10 Mg Tablet) 20 mg PO BEDTIME [facility] Last Admin: 01/22/25 20:14 Dose: 20 mg Prazosin HCl (Prazosin Hcl 1 Mg Capsule) 4 mg PO BEDTIME [facility]; Protocol Last Admin: 01/22/25 20:14 Dose: 4 mg Exam Height,Weight and Vital Signs: Height 6 ft 1 in Weight 88.313 kg Last Vital Signs Temp 98.9 F 01/23/25 08:57 Pulse 93 01/23/25 08:57 Resp 16 01/23/25 08:57 BP 119/72 01/23/25 08:57 Pulse Ox 98 01/23/25 08:57 O2 Del Method Room Air 01/23/25 08:56 O2 Flow Rate 2 01/23/25 08:09 Pertinent Lab Results Pertinent Lab Results: Laboratory Tests 01/19/25 01/19/25 01/19/25 11:31 12:43 16:55 Sodium 135 Potassium 4.2 Chloride 99 Carbon Dioxide 22 Anion Gap 18 BUN 17 H Creatinine 1.32 Estim Creat Clear Calc 87.4 Estimated GFR > 60 POC Glucose 320 H Random Glucose 497 H* Estimat Average Glucose 160 Hemoglobin A1c % 7.2 H Calcium 9.5 Total Bilirubin 0.3 AST 66 H ALT 189 H Alkaline Phosphatase 127 H Ammonia TNP Total Creatine Kinase Total Protein 7.4 Albumin 4.3 Triglycerides 1218 H Cholesterol 287 H LDL Cholesterol Direct LDL Cholesterol, Calc TNP HDL Cholesterol 42 TSH 0.90 01/19/25 01/20/25 01/20/25 20:14 07:37 09:52 Sodium Potassium Chloride Carbon Dioxide Anion Gap BUN Creatinine Estim Creat Clear Calc Estimated GFR POC Glucose 333 H 275 H Random Glucose Estimat Average Glucose Hemoglobin A1c % Calcium Total Bilirubin AST ALT Alkaline Phosphatase Ammonia Total Creatine Kinase 21 L Total Protein Albumin Triglycerides 792 H Cholesterol 277 H LDL Cholesterol Direct LDL Cholesterol, Calc TNP HDL Cholesterol 44 TSH 01/20/25 01/20/25 01/20/25 11:52 16:49 20:15 Sodium Potassium Chloride Carbon Dioxide Anion Gap BUN Creatinine Estim Creat Clear Calc Estimated GFR POC Glucose 336 H 239 H 211 H Random Glucose Estimat Average Glucose Hemoglobin A1c % Calcium Total Bilirubin AST ALT Alkaline Phosphatase Ammonia Total Creatine Kinase Total Protein Albumin Triglycerides Cholesterol LDL Cholesterol Direct LDL Cholesterol, Calc HDL Cholesterol TSH 01/21/25 01/21/25 01/21/25 07:40 11:41 16:47 Sodium Potassium Chloride Carbon Dioxide Anion Gap BUN Creatinine Estim Creat Clear Calc Estimated GFR POC Glucose 311 H 220 H 236 H Random Glucose Estimat Average Glucose Hemoglobin A1c % Calcium Total Bilirubin AST ALT Alkaline Phosphatase Ammonia Total Creatine Kinase Total Protein Albumin Triglycerides Cholesterol LDL Cholesterol Direct LDL Cholesterol, Calc HDL Cholesterol TSH 01/21/25 01/22/25 01/22/25 21:01 07:32 07:41 Sodium Potassium Chloride Carbon Dioxide Anion Gap BUN Creatinine Estim Creat Clear Calc Estimated GFR POC Glucose 174 H 212 H Random Glucose Estimat Average Glucose Hemoglobin A1c % Calcium Total Bilirubin AST ALT Alkaline Phosphatase Ammonia Total Creatine Kinase Total Protein Albumin Triglycerides 487 H Cholesterol 262 H LDL Cholesterol Direct LDL Cholesterol, Calc TNP HDL Cholesterol 43 TSH 01/22/25 01/22/25 01/22/25 09:20 12:01 16:46 Sodium Potassium Chloride Carbon Dioxide Anion Gap BUN Creatinine Estim Creat Clear Calc Estimated GFR POC Glucose 115 101 Random Glucose Estimat Average Glucose Hemoglobin A1c % Calcium Total Bilirubin AST ALT Alkaline Phosphatase Ammonia Total Creatine Kinase Total Protein Albumin Triglycerides Cholesterol LDL Cholesterol Direct 163 H LDL Cholesterol, Calc HDL Cholesterol TSH 01/22/25 01/23/25 20:05 08:54 Sodium Potassium Chloride Carbon Dioxide Anion Gap BUN Creatinine Estim Creat Clear Calc Estimated GFR POC Glucose 230 H 187 H Random Glucose Estimat Average Glucose Hemoglobin A1c % Calcium Total Bilirubin AST ALT Alkaline Phosphatase Ammonia Total Creatine Kinase Total Protein Albumin Triglycerides Cholesterol LDL Cholesterol Direct LDL Cholesterol, Calc HDL Cholesterol TSH Airway Mallampati Class: II TM Dist: >3cm Neck ROM: Full Assessment and Plan Assessment Anesthesia Assessment: Anesthesia Plan Discussed and Chart Reviewed Final Anesthetic Review Family History of Problems with Anesthesia: No History of Problems with Anesthesia: No NPO: Yes ASA Class: III Final Preanesthetic Review: No Changes in Pt Med Stat, Meds/Allgs Chart Reviewed, Consent Obtained/Reviewed and Anes Risks/Benef Reviewed Patient Risk: Intermediate Procedure Risk: Intermediate Anesthetic Plan Anesthetic Plan: GA Disposition: Standard PACU
[2025-01-23] MEDS: Fenofibrate 54 MG TABLET PO (09:10)
[2025-01-23] MEDS: metFORMIN HCl ER 500 MG TAB.ER.24H 1000 MG PO ×2 (09:10→20:57)
[2025-01-23 11:59] LABS: Glucose, Whole Blood 194 mg/dL (60-115)
[2025-01-23] MEDS: Nystatin Powder 15 GM BOTTLE 1 APPL TOPICAL (16:34)
[2025-01-23] MEDS: Hydrocortisone 1 % Cream 28.35 GM TUBE 1 APPL TOPICAL ×2 (16:35→21:01)
[2025-01-23 16:46] LABS: Glucose, Whole Blood 107 mg/dL (60-115)
[2025-01-23] MEDS: Lurasidone HCl 20 MG TABLET PO (17:00)
[2025-01-23 20:45] LABS: Glucose, Whole Blood 201 mg/dL (60-115)
[2025-01-23] MEDS: Prazosin HCL 1 MG CAPSULE 4 MG PO (20:57)
[2025-01-23] MEDS: OLANZapine 10 MG TABLET 20 MG PO (20:57)
[2025-01-23] MEDS: Lithium Carbonate ER 300 MG TABLET.ER 600 MG PO (20:57)
--- NOTE | 2025-01-23 23:39 | P.PNPSI_ITS ---
Subjective Subjective Date of Service: 01/23/25 Reason For Visit: Catatonia Interim History: met with pt; discussed with team had ect today; no complaints; feels better Mental Status Exam Mental Status Exam Narrative: Appearance: casually groomed, good hygiene, in NAD behavior: cooperative Psychomotor: no agitation or retardation noted Speech: no latency; clear, normal rate/rhythm/volume, spontaneous TP: linear TC:hoping to go home soon Mood: okay Affect: congruent SI: denies HI: none VH/AH: no overt signs Delusions: no overt delusional content reported or noted Insight/judgment: improving Memory/cog: alert, oriented x 4. Diagnostics Vital Signs (24Hr): Vital Signs - 24 hr 01/23/25 06:17 01/23/25 06:30 01/23/25 08:04 Temperature 98.4 F 98 F 97.4 F Pulse Rate 104 H 96 101 H Respiratory Rate 16 18 14 Blood Pressure 113/76 136/88 137/85 Pulse Oximetry 98 97 2 L Oxygen Delivery Method Room Air Nasal Cannula Oxygen Flow Rate 98 01/23/25 08:09 01/23/25 08:14 01/23/25 08:29 Temperature 98.7 F Pulse Rate 102 H 102 H 97 Respiratory Rate 18 18 17 Blood Pressure 104/71 107/68 110/64 Pulse Oximetry 96 96 97 Oxygen Delivery Method Nasal Cannula Room Air Room Air Oxygen Flow Rate 2 01/23/25 08:56 01/23/25 08:56 01/23/25 08:57 Temperature 98.9 F 98.9 F 98.9 F Pulse Rate 93 93 93 Respiratory Rate 16 16 16 Blood Pressure 119/72 119/72 119/72 Pulse Oximetry 98 98 98 Oxygen Delivery Method Room Air Room Air Oxygen Flow Rate 01/23/25 20:27 Temperature 98.9 F Pulse Rate 98 Respiratory Rate 16 Blood Pressure 132/63 Pulse Oximetry 98 Oxygen Delivery Method Room Air Oxygen Flow Rate BMI result Body Mass Index 25.7 Labs 01/19/25 11:31 Labs: Laboratory Results - last 48 hr 01/22/25 01/22/25 01/22/25 07:32 07:41 09:20 POC Glucose 212 H Triglycerides 487 H Cholesterol 262 H LDL Cholesterol Direct 163 H LDL Cholesterol, Calc TNP HDL Cholesterol 43 01/22/25 01/22/25 01/22/25 12:01 16:46 20:05 POC Glucose 115 101 230 H Triglycerides Cholesterol LDL Cholesterol Direct LDL Cholesterol, Calc HDL Cholesterol 01/23/25 01/23/25 01/23/25 08:54 11:54 16:41 POC Glucose 187 H 194 H 107 Triglycerides Cholesterol LDL Cholesterol Direct LDL Cholesterol, Calc HDL Cholesterol 01/23/25 20:41 POC Glucose 201 H Triglycerides Cholesterol LDL Cholesterol Direct LDL Cholesterol, Calc HDL Cholesterol Medications Medications Current Medications Acetaminophen (Acetaminophen 325 Mg Tablet) 650 mg PO Q6H PRN PRN Reason: Headache/Pain, Scale 1-10 Last Admin: 01/22/25 17:58 Dose: 650 mg Al Hydroxide/Mg Hydroxide (Magnesium Hydrox/Alum Hydrox 30 Ml Oral.Susp) 30 ml PO Q6H PRN PRN Reason: Heartburn/Nausea Fenofibrate (Fenofibrate 54 Mg Tablet) 54 mg PO DAILY [facility] Last Admin: 01/23/25 09:10 Dose: 54 mg Hydrocortisone (Hydrocortisone 1 % Cream 28.35 Gm Tube) 1 appl TOPICAL BID PRN; Protocol PRN Reason: Rash Last Admin: 01/23/25 21:01 Dose: 1 appl Hydroxyzine HCl (Hydroxyzine Hcl 25 Mg Tablet) 25 mg PO Q6H PRN PRN Reason: mild anxiety Last Admin: 01/21/25 04:28 Dose: 25 mg Insulin Human Lispro (Insulin Lispro 100 Unit/Ml 3 Ml Vial) 0 unit SUBCUT QIDACHS [facility]; Protocol Last Admin: 01/23/25 21:02 Dose: 4 unit [place] Carbonate ([place] Carbonate Er 300 Mg Tablet.Er) 600 mg PO BEDTIME [facility] Last Admin: 01/23/25 20:57 Dose: 600 mg Lurasidone HCl (Lurasidone Hcl 20 Mg Tablet) 20 mg PO DAILY@1700 [facility] Last Admin: 01/23/25 17:00 Dose: 20 mg Magnesium Hydroxide (Milk Of Magnesia 30 Ml Oral.Susp) 30 ml PO DAILY PRN PRN Reason: Constipation Metformin HCl (Metformin Hcl Er 500 Mg Tab.Er.24h) 1,000 mg PO BID [facility] Last Admin: 01/23/25 20:57 Dose: 1,000 mg Methocarbamol (Methocarbamol 750 Mg Tablet) 750 mg PO TID PRN PRN Reason: LOW BAXK PAIN Last Admin: 01/22/25 17:58 Dose: 750 mg Naloxone HCl (Naloxone Hcl 0.4 Mg/Ml Vial) 0.04 mg IVPUSH Q5M PRN PRN Reason: Excessive sedation or RR < 8 Nicotine Polacrilex (Nicotine Polacrilex 2 Mg Gum) 4 mg BUCCAL Q2H PRN PRN Reason: Nicotine Cravings Nystatin (Nystatin Powder 15 Gm Bottle) 1 appl TOPICAL BID [facility]; Protocol Last Admin: 01/23/25 21:02 Dose: Not Given Olanzapine (Olanzapine 10 Mg Tablet) 20 mg PO BEDTIME [facility] Last Admin: 01/23/25 20:57 Dose: 20 mg Prazosin HCl (Prazosin Hcl 1 Mg Capsule) 4 mg PO BEDTIME [facility]; Protocol Last Admin: 01/23/25 20:57 Dose: 4 mg Allergies Allergies Allergy/AdvReac Type Severity Reaction Status Date / Time sertraline [From Zoloft] Allergy Unknown Verified 12/14/24 16:10 Assessment & Plan Assessment & Plan (1) Bipolar I disorder with catatonia: Status: Acute Code(s): F31.9 - Bipolar disorder, unspecified; F06.1 - Catatonic disorder due to known physiological condition (2) New onset type 2 diabetes mellitus: Status: Acute Code(s): E11.9 - Type 2 diabetes mellitus without complications Plan 01/05: restart olanzapine at 5 mg QHS. continue ECT. plan to add an anti- depressant, as the present episode of catatonia appears to be related to a depressive episode. mood stabilizer later. 01/06: clearly psychotic today more than yesterday. increase HS olanzapine to 10 mg, continue ECT tomorrow, #9. 01/07: denies AH prior to ECT. much less HERNAN after ECT, notes his own hunger, observed zealously eating breakfast. continue current mgmt. ECT #10 sunday. 01/08: some AH today. poor sleep per pt, slept 8 hours per staff. ECT #10 tomorrow. DC CO, change to Q5 min checks. continue current mgmt otherwise. 01/09: ECT #10 completed. less HERNAN, more fluid, more affectively expressive. continue current mgmt. 01/10: continues to improve in terms of spontaneity, affective expression. memory continues impaired. continue current mgmt. 01/11: improvement continues. ECT #11 tomorrow. medical consult for wrist lesion. presumed fungal at the moment, will try nystatin powder rather than bacitracin, which has not been helpful. 01/12 ECT was canceled by Dr. Emmanuel given patient's memory issues. Staff reported patient doing better this past weekend, interacting with peers, but patient has only vague memory of it. Patient however agrees that he is eating better. Patient wants medication for bipolar depression; does not remember if he has ever been on lithium before, says his would know. Started on prazosin 1 mg since complaining of nightmare 01/13: ECT yesterday held due to memory issues. increase prazosin to 2 mg QHS for nightmares and olanzapine to 20 mg QHS for AH/insomnia. per lewis, continue ECT tomorrow with bifrontal placement. 01/14: ECT #11 today, changed to bifrontal and 0.25 program for less cognitive s/e. increase prazosin to 3 mg QHS for sleep, continue zyprexa 20 mg QHS as well. continues to have AH at night as well as insomnia. an additional 10 mg zyprexa PRN was added. 01/15: insomnia and AH throughout the night. increase HS zyprexa to 30. ECT tomorrow. otherwise continue current mgmt. 01/16: gains continue. memory improved. slept better last night. still AH once awake overnight, however. no nightmares. ECT #12 completed today. perhaps one more ECT next , then to focus on psychopharm prior to discharge. 01/17 continue current meds. will check cmp prior to starting lithium. hospitalist consult for sharp lower back pain. 01/18 continue tx. 01/19 CMP showed critical BS level of 497, no known DM, ordered A1c- 7.2%, elevation in LFTs AST 66, ALT 189, Alk phos 127. triglycerides very elevated at 1218 (not fasting and will repeat tomorrow morning, but still suspect will be very high), no signs of acute pancreatitis at this point, Cholesterol 287. given this metabolic findings, switching to different antipsychotic other than olanzapine makes most sense. lower olanzapine to 20mg po qhs, can start latuda 20mg po with dinner. Added lispro, POC QIDACH, metformin ER 1000mg po daily, consult to hospitalist. 01/20 Patient reports he is overall better but not sure if his medications are adequate so that he can remain stable; discussed with patient Dr. Kan's plan for medications and patient agrees to remain on the unit for continued ECT and further medication management (other considerations include Vraylar, Vraylar instead of Zyprexa, Wellbutrin, Lamictal...). Patient reports trouble sleeping. -regarding sign out, patient has been responding well to ECT and agrees he is doing better. -Patient currently on: Latuda 20 mg at dinnertime Zyprexa 20 mg q.h.s. And was started on lithium 300 mg b.i.d. 01/21 Patient reports he is doing the same, overall better. Still trouble sleeping. And agrees for medication adjustment. Patient had significantly elevated TAG, was started on fenofibrate; however lab was taken later in the day and on inquiry patient said he did eat breakfast right before lab; will repeat lipid panel and make sure it is fasting before concluding he needs to be on special diet/fenofibrate -review of past lipid panels show consistently only mildly elevated accept for few times when they were taken later in the day Continue Latuda 20 mg at dinnertime Continue Zyprexa 20 mg q.h.s. Switch to lithium ER 600 mg q.h.s. for 1 time dosing and possibly to help asleep Start clonidine 0.1 mg q.h.s. for insomnia Repeat lipid panel 01/22 same presentation TAG lower on fasting lab but still elevated increasing prazosin for nightmares 01/23 no nightmares; feels he's doing better Patient educated on: diagnosis, medication risk/benefits and ECT Informed Consent: understands Reason for continued inpatient stay Substantial Risk for: stable for discharge, rapid decompensation and med/psych decompensation Time Spent With Patient Time: Total time managing care of this patient today ____ minutes.
[2025-01-24 07:43] LABS: Glucose, Whole Blood 202 mg/dL (60-115)
[2025-01-24 08:00] VITALS: BP 122/79; PULSE 99; RESP 16; TEMP 36.4; O2SAT 100
[2025-01-24] MEDS: Insulin Lispro 100 UNIT/ML 3 ML VIAL SUBCUT ×3 (08:46→16:58)
[2025-01-24] MEDS: metFORMIN HCl ER 500 MG TAB.ER.24H 1000 MG PO ×2 (08:47→21:37)
[2025-01-24] MEDS: Fenofibrate 54 MG TABLET PO (08:47)
[2025-01-24] MEDS: Nystatin Powder 15 GM BOTTLE 1 APPL TOPICAL (09:17)
[2025-01-24 11:41] LABS: Glucose, Whole Blood 213 mg/dL (60-115)
--- NOTE | 2025-01-24 13:46 | HO.PSYCHPN ---
Subjective Subjective Date of Service: 01/24/25 Reason For Visit: Catatonia Interim History: met with pt; discussed with team Feeling better post ECT. Wondering if he will be getting more treatments. Denies SI/AVH. Mental Status Exam Mental Status Exam Narrative: Appearance: casually groomed, good hygiene, in NAD behavior: cooperative Psychomotor: no agitation or retardation noted Speech: no latency; clear, normal rate/rhythm/volume, spontaneous TP: linear TC:hoping to go home soon Mood: okay Affect: congruent SI: denies HI: none VH/AH: no overt signs Delusions: no overt delusional content reported or noted Insight/judgment: improving Memory/cog: alert, oriented x 4. Diagnostics Vital Signs (24Hr): Vital Signs - 24 hr 01/23/25 20:27 01/24/25 08:00 Temperature 98.9 F 97.5 F Pulse Rate 98 99 Respiratory Rate 16 16 Blood Pressure 132/63 122/79 Pulse Oximetry 98 100 Oxygen Delivery Method Room Air Room Air BMI result Body Mass Index 25.7 Labs 01/19/25 11:31 Labs: Laboratory Results - last 48 hr 01/22/25 01/22/25 01/22/25 09:20 16:46 20:05 POC Glucose 101 230 H LDL Cholesterol Direct 163 H 01/23/25 01/23/25 01/23/25 08:54 11:54 16:41 POC Glucose 187 H 194 H 107 LDL Cholesterol Direct 01/23/25 01/24/25 01/24/25 20:41 07:33 11:34 POC Glucose 201 H 202 H 213 H LDL Cholesterol Direct Medications Medications Current Medications Acetaminophen (Acetaminophen 325 Mg Tablet) 650 mg PO Q6H PRN PRN Reason: Headache/Pain, Scale 1-10 Last Admin: 01/22/25 17:58 Dose: 650 mg Al Hydroxide/Mg Hydroxide (Magnesium Hydrox/Alum Hydrox 30 Ml Oral.Susp) 30 ml PO Q6H PRN PRN Reason: Heartburn/Nausea Fenofibrate (Fenofibrate 54 Mg Tablet) 54 mg PO DAILY VLADIMIR Last Admin: 01/24/25 08:47 Dose: 54 mg Hydrocortisone (Hydrocortisone 1 % Cream 28.35 Gm Tube) 1 appl TOPICAL BID PRN; Protocol PRN Reason: Rash Last Admin: 01/23/25 21:01 Dose: 1 appl Hydroxyzine HCl (Hydroxyzine Hcl 25 Mg Tablet) 25 mg PO Q6H PRN PRN Reason: mild anxiety Last Admin: 01/21/25 04:28 Dose: 25 mg Insulin Human Lispro (Insulin Lispro 100 Unit/Ml 3 Ml Vial) 0 unit SUBCUT QIDACHS [facility]; Protocol Last Admin: 01/24/25 12:06 Dose: 4 unit [place] Carbonate ([place] Carbonate Er 300 Mg Tablet.Er) 600 mg PO BEDTIME [facility] Last Admin: 01/23/25 20:57 Dose: 600 mg Lurasidone HCl (Lurasidone Hcl 20 Mg Tablet) 20 mg PO DAILY@1700 [facility] Last Admin: 01/23/25 17:00 Dose: 20 mg Magnesium Hydroxide (Milk Of Magnesia 30 Ml Oral.Susp) 30 ml PO DAILY PRN PRN Reason: Constipation Metformin HCl (Metformin Hcl Er 500 Mg Tab.Er.24h) 1,000 mg PO BID [facility] Last Admin: 01/24/25 08:47 Dose: 1,000 mg Methocarbamol (Methocarbamol 750 Mg Tablet) 750 mg PO TID PRN PRN Reason: LOW BAXK PAIN Last Admin: 01/22/25 17:58 Dose: 750 mg Naloxone HCl (Naloxone Hcl 0.4 Mg/Ml Vial) 0.04 mg IVPUSH Q5M PRN PRN Reason: Excessive sedation or RR < 8 Nicotine Polacrilex (Nicotine Polacrilex 2 Mg Gum) 4 mg BUCCAL Q2H PRN PRN Reason: Nicotine Cravings Nystatin (Nystatin Powder 15 Gm Bottle) 1 appl TOPICAL BID [facility]; Protocol Last Admin: 01/24/25 09:17 Dose: 1 appl Olanzapine (Olanzapine 10 Mg Tablet) 20 mg PO BEDTIME [facility] Last Admin: 01/23/25 20:57 Dose: 20 mg Prazosin HCl (Prazosin Hcl 1 Mg Capsule) 4 mg PO BEDTIME [facility]; Protocol Last Admin: 01/23/25 20:57 Dose: 4 mg Allergies Allergies Allergy/AdvReac Type Severity Reaction Status Date / Time sertraline [From Zoloft] Allergy Unknown Verified 12/14/24 16:10 Assessment & Plan Assessment & Plan (1) Bipolar I disorder with catatonia: Status: Acute Code(s): F31.9 - Bipolar disorder, unspecified; F06.1 - Catatonic disorder due to known physiological condition (2) New onset type 2 diabetes mellitus: Status: Acute Code(s): E11.9 - Type 2 diabetes mellitus without complications Plan 01/05: restart olanzapine at 5 mg QHS. continue ECT. plan to add an anti-depressant, as the present episode of catatonia appears to be related to a depressive episode. mood stabilizer later. 01/06: clearly psychotic today more than yesterday. increase HS olanzapine to 10 mg, continue ECT tomorrow, #9. 01/07: denies AH prior to ECT. much less HERNAN after ECT, notes his own hunger, observed zealously eating breakfast. continue current mgmt. ECT #10 sunday. 01/08: some AH today. poor sleep per pt, slept 8 hours per staff. ECT #10 tomorrow. DC CO, change to Q5 min checks. continue current mgmt otherwise. 01/09: ECT #10 completed. less HERNAN, more fluid, more affectively expressive. continue current mgmt. 01/10: continues to improve in terms of spontaneity, affective expression. memory continues impaired. continue current mgmt. 01/11: improvement continues. ECT #11 tomorrow. medical consult for wrist lesion. presumed fungal at the moment, will try nystatin powder rather than bacitracin, which has not been helpful. 01/12 ECT was canceled by Dr. Emmanuel given patient's memory issues. Staff reported patient doing better this past weekend, interacting with peers, but patient has only vague memory of it. Patient however agrees that he is eating better. Patient wants medication for bipolar depression; does not remember if he has ever been on lithium before, says his would know. Started on prazosin 1 mg since complaining of nightmare 01/13: ECT yesterday held due to memory issues. increase prazosin to 2 mg QHS for nightmares and olanzapine to 20 mg QHS for AH/insomnia. per lewis, continue ECT tomorrow with bifrontal placement. 01/14: ECT #11 today, changed to bifrontal and 0.25 program for less cognitive s/e. increase prazosin to 3 mg QHS for sleep, continue zyprexa 20 mg QHS as well. continues to have AH at night as well as insomnia. an additional 10 mg zyprexa PRN was added. 01/15: insomnia and AH throughout the night. increase HS zyprexa to 30. ECT tomorrow. otherwise continue current mgmt. 01/16: gains continue. memory improved. slept better last night. still AH once awake overnight, however. no nightmares. ECT #12 completed today. perhaps one more ECT next , then to focus on psychopharm prior to discharge. 01/17 continue current meds. will check cmp prior to starting lithium. hospitalist consult for sharp lower back pain. 01/18 continue tx. 01/19 CMP showed critical BS level of 497, no known DM, ordered A1c- 7.2%, elevation in LFTs AST 66, ALT 189, Alk phos 127. triglycerides very elevated at 1218 (not fasting and will repeat tomorrow morning, but still suspect will be very high), no signs of acute pancreatitis at this point, Cholesterol 287. given this metabolic findings, switching to different antipsychotic other than olanzapine makes most sense. lower olanzapine to 20mg po qhs, can start latuda 20mg po with dinner. Added lispro, POC QIDACH, metformin ER 1000mg po daily, consult to hospitalist. 01/20 Patient reports he is overall better but not sure if his medications are adequate so that he can remain stable; discussed with patient Dr. Kan's plan for medications and patient agrees to remain on the unit for continued ECT and further medication management (other considerations include Vraylar, Vraylar instead of Zyprexa, Wellbutrin, Lamictal...). Patient reports trouble sleeping. -regarding sign out, patient has been responding well to ECT and agrees he is doing better. -Patient currently on: Latuda 20 mg at dinnertime Zyprexa 20 mg q.h.s. And was started on lithium 300 mg b.i.d. 01/21 Patient reports he is doing the same, overall better. Still trouble sleeping. And agrees for medication adjustment. Patient had significantly elevated TAG, was started on fenofibrate; however lab was taken later in the day and on inquiry patient said he did eat breakfast right before lab; will repeat lipid panel and make sure it is fasting before concluding he needs to be on special diet/fenofibrate -review of past lipid panels show consistently only mildly elevated accept for few times when they were taken later in the day Continue Latuda 20 mg at dinnertime Continue Zyprexa 20 mg q.h.s. Switch to lithium ER 600 mg q.h.s. for 1 time dosing and possibly to help asleep Start clonidine 0.1 mg q.h.s. for insomnia Repeat lipid panel 01/22 same presentation TAG lower on fasting lab but still elevated increasing prazosin for nightmares 01/23 no nightmares; feels he's doing better 01/24: continue current management and treatment plan. Reason for continued inpatient stay Substantial Risk for: inability to function and rapid decompensation Time Spent With Patient Time: Total time managing care of this patient today ____ minutes.
[2025-01-24 16:54] LABS: Glucose, Whole Blood 191 mg/dL (60-115)
[2025-01-24] MEDS: Lurasidone HCl 20 MG TABLET PO (17:11)
[2025-01-24 19:18] VITALS: BP 126/82; PULSE 95; RESP 16; TEMP 37.1; O2SAT 97
[2025-01-24] MEDS: OLANZapine 10 MG TABLET 20 MG PO (21:37)
[2025-01-24] MEDS: Lithium Carbonate ER 300 MG TABLET.ER 600 MG PO (21:37)
[2025-01-24 21:38] VITALS: BP 130/92
[2025-01-24] MEDS: Prazosin HCL 1 MG CAPSULE 4 MG PO (21:38)
[2025-01-24 21:44] LABS: Glucose, Whole Blood 147 mg/dL (60-115)
[2025-01-25 07:32] VITALS: BP 121/70; PULSE 88; RESP 16; TEMP 37.1; O2SAT 94
[2025-01-25 08:11] LABS: Glucose, Whole Blood 142 mg/dL (60-115)
[2025-01-25] MEDS: metFORMIN HCl ER 500 MG TAB.ER.24H 1000 MG PO ×2 (08:20→21:13)
[2025-01-25] MEDS: Fenofibrate 54 MG TABLET PO (08:21)
[2025-01-25] MEDS: Nystatin Powder 15 GM BOTTLE 1 APPL TOPICAL (08:22)
[2025-01-25] MEDS: Hydrocortisone 1 % Cream 28.35 GM TUBE 1 APPL TOPICAL (08:22)
[2025-01-25 12:01] LABS: Glucose, Whole Blood 130 mg/dL (60-115)
--- NOTE | 2025-01-25 14:36 | HO.PSYCHPN ---
Subjective Subjective Date of Service: 01/25/25 Reason For Visit: Catatonia Interim History: met with pt; discussed with team Feeling better. Pleasant. Communicative. Engaged in the milieu. Visible. Eating and drinking well. Denies SI/AVH. Mental Status Exam Mental Status Exam Narrative: Appearance: casually groomed, good hygiene, in NAD behavior: cooperative Psychomotor: no agitation or retardation noted Speech: no latency; clear, normal rate/rhythm/volume, spontaneous TP: linear TC:hoping to go home soon Mood: okay Affect: congruent SI: denies HI: none VH/AH: no overt signs Delusions: no overt delusional content reported or noted Insight/judgment: improving Memory/cog: alert, oriented x 4. Diagnostics Vital Signs (24Hr): Vital Signs - 24 hr 01/24/25 19:18 01/24/25 21:38 01/25/25 07:32 Temperature 98.7 F 98.7 F Pulse Rate 95 88 Respiratory Rate 16 16 Blood Pressure 126/82 130/92 H 121/70 Pulse Oximetry 97 94 Oxygen Delivery Method Room Air Room Air BMI result Body Mass Index 25.7 Labs 01/19/25 11:31 Labs: Laboratory Results - last 48 hr 01/23/25 01/23/25 01/24/25 16:41 20:41 07:33 POC Glucose 107 201 H 202 H 01/24/25 01/24/25 01/24/25 11:34 16:49 21:35 POC Glucose 213 H 191 H 147 H 01/25/25 01/25/25 07:46 11:55 POC Glucose 142 H 130 H Medications Medications Current Medications Acetaminophen (Acetaminophen 325 Mg Tablet) 650 mg PO Q6H PRN PRN Reason: Headache/Pain, Scale 1-10 Last Admin: 01/22/25 17:58 Dose: 650 mg Al Hydroxide/Mg Hydroxide (Magnesium Hydrox/Alum Hydrox 30 Ml Oral.Susp) 30 ml PO Q6H PRN PRN Reason: Heartburn/Nausea Fenofibrate (Fenofibrate 54 Mg Tablet) 54 mg PO DAILY VLADIMIR Last Admin: 01/25/25 08:21 Dose: 54 mg Hydrocortisone (Hydrocortisone 1 % Cream 28.35 Gm Tube) 1 appl TOPICAL BID PRN; Protocol PRN Reason: Rash Last Admin: 01/25/25 08:22 Dose: 1 appl Hydroxyzine HCl (Hydroxyzine Hcl 25 Mg Tablet) 25 mg PO Q6H PRN PRN Reason: mild anxiety Last Admin: 01/21/25 04:28 Dose: 25 mg Insulin Human Lispro (Insulin Lispro 100 Unit/Ml 3 Ml Vial) 0 unit SUBCUT QIDACHS [facility]; Protocol Last Admin: 01/25/25 11:59 Dose: Not Given [place] Carbonate ([place] Carbonate Er 300 Mg Tablet.Er) 600 mg PO BEDTIME [facility] Last Admin: 01/24/25 21:37 Dose: 600 mg Lurasidone HCl (Lurasidone Hcl 20 Mg Tablet) 20 mg PO DAILY@1700 [facility] Last Admin: 01/24/25 17:11 Dose: 20 mg Magnesium Hydroxide (Milk Of Magnesia 30 Ml Oral.Susp) 30 ml PO DAILY PRN PRN Reason: Constipation Metformin HCl (Metformin Hcl Er 500 Mg Tab.Er.24h) 1,000 mg PO BID [facility] Last Admin: 01/25/25 08:20 Dose: 1,000 mg Methocarbamol (Methocarbamol 750 Mg Tablet) 750 mg PO TID PRN PRN Reason: LOW BAXK PAIN Last Admin: 01/22/25 17:58 Dose: 750 mg Naloxone HCl (Naloxone Hcl 0.4 Mg/Ml Vial) 0.04 mg IVPUSH Q5M PRN PRN Reason: Excessive sedation or RR < 8 Nicotine Polacrilex (Nicotine Polacrilex 2 Mg Gum) 4 mg BUCCAL Q2H PRN PRN Reason: Nicotine Cravings Nystatin (Nystatin Powder 15 Gm Bottle) 1 appl TOPICAL BID [facility]; Protocol Last Admin: 01/25/25 08:22 Dose: 1 appl Olanzapine (Olanzapine 10 Mg Tablet) 20 mg PO BEDTIME [facility] Last Admin: 01/24/25 21:37 Dose: 20 mg Prazosin HCl (Prazosin Hcl 1 Mg Capsule) 4 mg PO BEDTIME [facility]; Protocol Last Admin: 01/24/25 21:38 Dose: 4 mg Allergies Allergies Allergy/AdvReac Type Severity Reaction Status Date / Time sertraline [From Zoloft] Allergy Unknown Verified 12/14/24 16:10 Assessment & Plan Assessment & Plan (1) Bipolar I disorder with catatonia: Status: Acute Code(s): F31.9 - Bipolar disorder, unspecified; F06.1 - Catatonic disorder due to known physiological condition (2) New onset type 2 diabetes mellitus: Status: Acute Code(s): E11.9 - Type 2 diabetes mellitus without complications Plan 01/05: restart olanzapine at 5 mg QHS. continue ECT. plan to add an anti-depressant, as the present episode of catatonia appears to be related to a depressive episode. mood stabilizer later. 01/06: clearly psychotic today more than yesterday. increase HS olanzapine to 10 mg, continue ECT tomorrow, #9. 01/07: denies AH prior to ECT. much less HERNAN after ECT, notes his own hunger, observed zealously eating breakfast. continue current mgmt. ECT #10 sunday. 01/08: some AH today. poor sleep per pt, slept 8 hours per staff. ECT #10 tomorrow. DC CO, change to Q5 min checks. continue current mgmt otherwise. 01/09: ECT #10 completed. less HERNAN, more fluid, more affectively expressive. continue current mgmt. 01/10: continues to improve in terms of spontaneity, affective expression. memory continues impaired. continue current mgmt. 01/11: improvement continues. ECT #11 tomorrow. medical consult for wrist lesion. presumed fungal at the moment, will try nystatin powder rather than bacitracin, which has not been helpful. 01/12 ECT was canceled by Dr. Emmanuel given patient's memory issues. Staff reported patient doing better this past weekend, interacting with peers, but patient has only vague memory of it. Patient however agrees that he is eating better. Patient wants medication for bipolar depression; does not remember if he has ever been on lithium before, says his would know. Started on prazosin 1 mg since complaining of nightmare 01/13: ECT yesterday held due to memory issues. increase prazosin to 2 mg QHS for nightmares and olanzapine to 20 mg QHS for AH/insomnia. per lewis, continue ECT tomorrow with bifrontal placement. 01/14: ECT #11 today, changed to bifrontal and 0.25 program for less cognitive s/e. increase prazosin to 3 mg QHS for sleep, continue zyprexa 20 mg QHS as well. continues to have AH at night as well as insomnia. an additional 10 mg zyprexa PRN was added. 01/15: insomnia and AH throughout the night. increase HS zyprexa to 30. ECT tomorrow. otherwise continue current mgmt. 01/16: gains continue. memory improved. slept better last night. still AH once awake overnight, however. no nightmares. ECT #12 completed today. perhaps one more ECT next , then to focus on psychopharm prior to discharge. 01/17 continue current meds. will check cmp prior to starting lithium. hospitalist consult for sharp lower back pain. 01/18 continue tx. 01/19 CMP showed critical BS level of 497, no known DM, ordered A1c- 7.2%, elevation in LFTs AST 66, ALT 189, Alk phos 127. triglycerides very elevated at 1218 (not fasting and will repeat tomorrow morning, but still suspect will be very high), no signs of acute pancreatitis at this point, Cholesterol 287. given this metabolic findings, switching to different antipsychotic other than olanzapine makes most sense. lower olanzapine to 20mg po qhs, can start latuda 20mg po with dinner. Added lispro, POC QIDACH, metformin ER 1000mg po daily, consult to hospitalist. 01/20 Patient reports he is overall better but not sure if his medications are adequate so that he can remain stable; discussed with patient Dr. Kan's plan for medications and patient agrees to remain on the unit for continued ECT and further medication management (other considerations include Vraylar, Vraylar instead of Zyprexa, Wellbutrin, Lamictal...). Patient reports trouble sleeping. -regarding sign out, patient has been responding well to ECT and agrees he is doing better. -Patient currently on: Latuda 20 mg at dinnertime Zyprexa 20 mg q.h.s. And was started on lithium 300 mg b.i.d. 01/21 Patient reports he is doing the same, overall better. Still trouble sleeping. And agrees for medication adjustment. Patient had significantly elevated TAG, was started on fenofibrate; however lab was taken later in the day and on inquiry patient said he did eat breakfast right before lab; will repeat lipid panel and make sure it is fasting before concluding he needs to be on special diet/fenofibrate -review of past lipid panels show consistently only mildly elevated accept for few times when they were taken later in the day Continue Latuda 20 mg at dinnertime Continue Zyprexa 20 mg q.h.s. Switch to lithium ER 600 mg q.h.s. for 1 time dosing and possibly to help asleep Start clonidine 0.1 mg q.h.s. for insomnia Repeat lipid panel 01/22 same presentation TAG lower on fasting lab but still elevated increasing prazosin for nightmares 01/23 no nightmares; feels he's doing better 01/24: continue current management and treatment plan. 01/25: Continue current management and treatment plan. Reason for continued inpatient stay Substantial Risk for: inability to function and rapid decompensation Time Spent With Patient Time: Total time managing care of this patient today ____ minutes.
[2025-01-25 16:53] LABS: Glucose, Whole Blood 142 mg/dL (60-115)
[2025-01-25] MEDS: Lurasidone HCl 20 MG TABLET PO (17:14)
[2025-01-25 20:00] VITALS: BP 124/67; PULSE 100; RESP 16; TEMP 36.6; O2SAT 98
[2025-01-25 21:10] LABS: Glucose, Whole Blood 180 mg/dL (60-115)
[2025-01-25] MEDS: OLANZapine 10 MG TABLET 20 MG PO (21:10)
[2025-01-25] MEDS: Insulin Lispro 100 UNIT/ML 3 ML VIAL SUBCUT (21:11)
[2025-01-25] MEDS: Lithium Carbonate ER 300 MG TABLET.ER 600 MG PO (21:12)
[2025-01-25 21:13] VITALS: BP 124/67
[2025-01-25] MEDS: Prazosin HCL 1 MG CAPSULE 4 MG PO (21:13)
[2025-01-26 07:45] VITALS: BP 124/75; PULSE 89; RESP 16; TEMP 36.7; O2SAT 97
[2025-01-26 07:47] LABS: Glucose, Whole Blood 144 mg/dL (60-115)
[2025-01-26 08:01] LABS: Creatinine Clr Calc Pharmacy 131.1; Estimated Glomerular Filt Rate > 60
[2025-01-26 08:09] LABS: Anion Gap 17 (12-20); Blood Urea Nitrogen 11 mg/dL (9-16); Carbon Dioxide 24 mmol/L (22-29); Chloride 104 mmol/L (96-108); Creatinine Clr Calc Pharmacy 131.1; Estimated Glomerular Filt Rate > 60; Glucose Random 131 mg/dL (60-115); Potassium 4.3 mmol/L (3.3-5.1); Sodium 141 mmol/L (135-145)
[2025-01-26] MEDS: metFORMIN HCl ER 500 MG TAB.ER.24H 1000 MG PO ×2 (08:24→21:11)
[2025-01-26 08:25] LABS: TSH reflex Free T4 1.49 uIU/mL (0.32-4.0)
[2025-01-26] MEDS: Fenofibrate 54 MG TABLET PO (08:25)
[2025-01-26] MEDS: Acetaminophen 325 MG TABLET 650 MG PO ×2 (08:49→21:11)
[2025-01-26 12:06] LABS: Glucose, Whole Blood 91 mg/dL (60-115)
--- NOTE | 2025-01-26 15:03 | HO.PSYCHPN ---
Subjective Subjective Date of Service: 01/26/25 Reason For Visit: Catatonia Interim History: well-related, personable. agreeable to increase latuda, decrease zyprexa, check labs. hoping for discharge sometime next week. per staff, taking meds. dep 6 anx 7. sleeping well, no nightmares. slept 7 hours. Mental Status Exam Mental Status Exam Narrative: Appearance: casually groomed, good hygiene, in NAD behavior: cooperative Psychomotor: no agitation or retardation noted Speech: no latency; clear, normal rate/rhythm/volume, spontaneous TP: linear TC:hoping to go home soon Mood: okay Affect: congruent SI: denies HI: none VH/AH: no overt signs Delusions: no overt delusional content reported or noted Insight/judgment: improving Memory/cog: alert, oriented x 4. Diagnostics Vital Signs (24Hr): Vital Signs - 24 hr 01/25/25 20:00 01/25/25 21:13 01/26/25 07:45 Temperature 97.8 F 98.0 F Pulse Rate 100 89 Respiratory Rate 16 16 Blood Pressure 124/67 124/67 124/75 Pulse Oximetry 98 97 Oxygen Delivery Method Room Air Room Air BMI result Body Mass Index 25.7 Labs 01/26/25 07:28 Labs: Laboratory Results - last 48 hr 01/24/25 01/24/25 01/25/25 16:49 21:35 07:46 Sodium Potassium Chloride Carbon Dioxide Anion Gap BUN Creatinine Estim Creat Clear Calc Estimated GFR POC Glucose 191 H 147 H 142 H Random Glucose Calcium TSH [place] 01/25/25 01/25/25 01/25/25 11:55 16:48 21:06 Sodium Potassium Chloride Carbon Dioxide Anion Gap BUN Creatinine Estim Creat Clear Calc Estimated GFR POC Glucose 130 H 142 H 180 H Random Glucose Calcium TSH [place] 01/26/25 01/26/25 01/26/25 07:28 07:28 07:28 Sodium 141 Potassium 4.3 Chloride 104 Carbon Dioxide 24 Anion Gap 17 BUN 11 Creatinine 0.88 0.88 Estim Creat Clear Calc 131.1 131.1 Estimated GFR > 60 POC Glucose Random Glucose Calcium TSH [place] 01/26/25 01/26/25 01/26/25 07:28 07:32 11:57 Sodium Potassium Chloride Carbon Dioxide Anion Gap BUN Creatinine Estim Creat Clear Calc Estimated GFR > 60 POC Glucose 144 H 91 Random Glucose 131 H Calcium 10.0 TSH 1.49 [place] 0.50 L Medications Medications Current Medications Acetaminophen (Acetaminophen 325 Mg Tablet) 650 mg PO Q6H PRN PRN Reason: Headache/Pain, Scale 1-10 Last Admin: 01/26/25 08:49 Dose: 650 mg Al Hydroxide/Mg Hydroxide (Magnesium Hydrox/Alum Hydrox 30 Ml Oral.Susp) 30 ml PO Q6H PRN PRN Reason: Heartburn/Nausea Fenofibrate (Fenofibrate 54 Mg Tablet) 54 mg PO DAILY [facility] Last Admin: 01/26/25 08:25 Dose: 54 mg Hydrocortisone (Hydrocortisone 1 % Cream 28.35 Gm Tube) 1 appl TOPICAL BID PRN; Protocol PRN Reason: Rash Last Admin: 01/25/25 08:22 Dose: 1 appl Hydroxyzine HCl (Hydroxyzine Hcl 25 Mg Tablet) 25 mg PO Q6H PRN PRN Reason: mild anxiety Last Admin: 01/21/25 04:28 Dose: 25 mg Insulin Human Lispro (Insulin Lispro 100 Unit/Ml 3 Ml Vial) 0 unit SUBCUT QIDACHS [facility]; Protocol Last Admin: 01/26/25 08:27 Dose: Not Given [place] Carbonate ([place] Carbonate Er 300 Mg Tablet.Er) 600 mg PO BEDTIME [facility]ADIMIR Last Admin: 01/25/25 21:12 Dose: 600 mg Lurasidone HCl (Lurasidone Hcl 40 Mg Tablet) 40 mg PO DAILY@1700 [facility] Magnesium Hydroxide (Milk Of Magnesia 30 Ml Oral.Susp) 30 ml PO DAILY PRN PRN Reason: Constipation Metformin HCl (Metformin Hcl Er 500 Mg Tab.Er.24h) 1,000 mg PO BID [facility] Last Admin: 01/26/25 08:24 Dose: 1,000 mg Methocarbamol (Methocarbamol 750 Mg Tablet) 750 mg PO TID PRN PRN Reason: LOW BAXK PAIN Last Admin: 01/22/25 17:58 Dose: 750 mg Nicotine Polacrilex (Nicotine Polacrilex 2 Mg Gum) 4 mg BUCCAL Q2H PRN PRN Reason: Nicotine Cravings Nystatin (Nystatin Powder 15 Gm Bottle) 1 appl TOPICAL BID [facility]; Protocol Last Admin: 01/26/25 08:26 Dose: Not Given Olanzapine (Olanzapine 10 Mg Tablet) 10 mg PO BEDTIME [facility] Prazosin HCl (Prazosin Hcl 1 Mg Capsule) 4 mg PO BEDTIME [facility]; Protocol Last Admin: 01/25/25 21:13 Dose: 4 mg Allergies Allergies Allergy/AdvReac Type Severity Reaction Status Date / Time sertraline [From Zoloft] Allergy Unknown Verified 12/14/24 16:10 Assessment & Plan Assessment & Plan (1) Bipolar I disorder with catatonia: Status: Acute Code(s): F31.9 - Bipolar disorder, unspecified; F06.1 - Catatonic disorder due to known physiological condition (2) New onset type 2 diabetes mellitus: Status: Acute Code(s): E11.9 - Type 2 diabetes mellitus without complications Plan 01/05: restart olanzapine at 5 mg QHS. continue ECT. plan to add an anti-depressant, as the present episode of catatonia appears to be related to a depressive episode. mood stabilizer later. 01/06: clearly psychotic today more than yesterday. increase HS olanzapine to 10 mg, continue ECT tomorrow, #9. 01/07: denies AH prior to ECT. much less HERNAN after ECT, notes his own hunger, observed zealously eating breakfast. continue current mgmt. ECT #10 sunday. 01/08: some AH today. poor sleep per pt, slept 8 hours per staff. ECT #10 tomorrow. DC CO, change to Q5 min checks. continue current mgmt otherwise. 01/09: ECT #10 completed. less HERNAN, more fluid, more affectively expressive. continue current mgmt. 01/10: continues to improve in terms of spontaneity, affective expression. memory continues impaired. continue current mgmt. 01/11: improvement continues. ECT #11 tomorrow. medical consult for wrist lesion. presumed fungal at the moment, will try nystatin powder rather than bacitracin, which has not been helpful. 01/12 ECT was canceled by Dr. Emmanuel given patient's memory issues. Staff reported patient doing better this past weekend, interacting with peers, but patient has only vague memory of it. Patient however agrees that he is eating better. Patient wants medication for bipolar depression; does not remember if he has ever been on lithium before, says his would know. Started on prazosin 1 mg since complaining of nightmare 01/13: ECT yesterday held due to memory issues. increase prazosin to 2 mg QHS for nightmares and olanzapine to 20 mg QHS for AH/insomnia. per lewis, continue ECT tomorrow with bifrontal placement. 01/14: ECT #11 today, changed to bifrontal and 0.25 program for less cognitive s/e. increase prazosin to 3 mg QHS for sleep, continue zyprexa 20 mg QHS as well. continues to have AH at night as well as insomnia. an additional 10 mg zyprexa PRN was added. 01/15: insomnia and AH throughout the night. increase HS zyprexa to 30. ECT tomorrow. otherwise continue current mgmt. 01/16: gains continue. memory improved. slept better last night. still AH once awake overnight, however. no nightmares. ECT #12 completed today. perhaps one more ECT next , then to focus on psychopharm prior to discharge. 01/17 continue current meds. will check cmp prior to starting lithium. hospitalist consult for sharp lower back pain. 01/18 continue tx. 01/19 CMP showed critical BS level of 497, no known DM, ordered A1c- 7.2%, elevation in LFTs AST 66, ALT 189, Alk phos 127. triglycerides very elevated at 1218 (not fasting and will repeat tomorrow morning, but still suspect will be very high), no signs of acute pancreatitis at this point, Cholesterol 287. given this metabolic findings, switching to different antipsychotic other than olanzapine makes most sense. lower olanzapine to 20mg po qhs, can start latuda 20mg po with dinner. Added lispro, POC QIDACH, metformin ER 1000mg po daily, consult to hospitalist. 01/20 Patient reports he is overall better but not sure if his medications are adequate so that he can remain stable; discussed with patient Dr. Kan's plan for medications and patient agrees to remain on the unit for continued ECT and further medication management (other considerations include Vraylar, Vraylar instead of Zyprexa, Wellbutrin, Lamictal...). Patient reports trouble sleeping. -regarding sign out, patient has been responding well to ECT and agrees he is doing better. -Patient currently on: Latuda 20 mg at dinnertime Zyprexa 20 mg q.h.s. And was started on lithium 300 mg b.i.d. 01/21 Patient reports he is doing the same, overall better. Still trouble sleeping. And agrees for medication adjustment. Patient had significantly elevated TAG, was started on fenofibrate; however lab was taken later in the day and on inquiry patient said he did eat breakfast right before lab; will repeat lipid panel and make sure it is fasting before concluding he needs to be on special diet/fenofibrate -review of past lipid panels show consistently only mildly elevated accept for few times when they were taken later in the day Continue Latuda 20 mg at dinnertime Continue Zyprexa 20 mg q.h.s. Switch to lithium ER 600 mg q.h.s. for 1 time dosing and possibly to help asleep Start clonidine 0.1 mg q.h.s. for insomnia Repeat lipid panel 01/22 same presentation TAG lower on fasting lab but still elevated increasing prazosin for nightmares 01/23 no nightmares; feels he's doing better 01/24: continue current management and treatment plan. 01/25: Continue current management and treatment plan. 01/26: sleeping well, no nightmares. mood OK. increase latuda to 40 mg daily and drop HS zyprexa to 10 mg QHS. check lithium level tonight. clarify outpt ECT plan. discharge next week likely. Reason for continued inpatient stay Substantial Risk for: inability to function and rapid decompensation Time Spent With Patient Time: Total time managing care of this patient today __25__ minutes.
[2025-01-26 16:50] LABS: Glucose, Whole Blood 135 mg/dL (60-115)
[2025-01-26] MEDS: Lurasidone HCl 40 MG TABLET PO (17:26)
[2025-01-26 20:00] VITALS: BP 112/82; PULSE 90; RESP 16; TEMP 37.1; O2SAT 97
[2025-01-26 21:10] VITALS: BP 112/82
[2025-01-26] MEDS: Lithium Carbonate ER 300 MG TABLET.ER 600 MG PO (21:10)
[2025-01-26] MEDS: Prazosin HCL 1 MG CAPSULE 4 MG PO (21:10)
[2025-01-26] MEDS: hydrOXYzine HCL 25 MG TABLET PO (21:11)
[2025-01-26] MEDS: OLANZapine 10 MG TABLET PO (21:11)
[2025-01-26 21:24] LABS: Glucose, Whole Blood 127 mg/dL (60-115)
[2025-01-26 21:27] LABS: Lithium 0.26 mmol/L (0.60-1.20)
[2025-01-26 21:34] LABS: Anion Gap 16 (12-20); Blood Urea Nitrogen 12 mg/dL (9-16); Calcium 9.8 mg/dL (8.4-10.2); Carbon Dioxide 23 mmol/L (22-29); Chloride 104 mmol/L (96-108); Creatinine Clr Calc Pharmacy 132.6; Estimated Glomerular Filt Rate > 60; Glucose Random 132 mg/dL (60-115); Potassium 3.9 mmol/L (3.3-5.1); Sodium 139 mmol/L (135-145)
[2025-01-27 07:42] LABS: Glucose, Whole Blood 182 mg/dL (60-115)
[2025-01-27 07:43] VITALS: BP 125/86; PULSE 97; RESP 16; TEMP 36.4; O2SAT 97
[2025-01-27] MEDS: metFORMIN HCl ER 500 MG TAB.ER.24H 1000 MG PO ×2 (08:36→20:19)
[2025-01-27] MEDS: Fenofibrate 54 MG TABLET PO (08:36)
[2025-01-27] MEDS: Insulin Lispro 100 UNIT/ML 3 ML VIAL SUBCUT ×4 (08:37→20:15)
[2025-01-27] MEDS: Lithium Carbonate ER 300 MG TABLET.ER 600 MG PO ×2 (12:10→20:20)
--- NOTE | 2025-01-27 15:32 | HO.PSYCHPN ---
Subjective Subjective Date of Service: 01/27/25 Reason For Visit: Catatonia Interim History: lithium level low. amenable to double lithium to 600 BID. also c/o poor sleep with zyprexa dose reduction last night, agreeable to increase prazosin to 5 mg at HS. per staff, taking meds, visible. tylenol for back pain. c/o poor sleep, bad dream last night. Mental Status Exam Mental Status Exam Narrative: Appearance: casually groomed, good hygiene, in NAD behavior: cooperative Psychomotor: no agitation or retardation noted Speech: no latency; clear, normal rate/rhythm/volume, spontaneous TP: linear TC:hoping to go home soon Mood: okay Affect: congruent SI: denies HI: none VH/AH: no overt signs Delusions: no overt delusional content reported or noted Insight/judgment: improving Memory/cog: alert, oriented x 4. Diagnostics Vital Signs (24Hr): Vital Signs - 24 hr 01/26/25 20:00 01/26/25 21:10 01/27/25 07:43 Temperature 98.8 F 97.6 F Pulse Rate 90 97 Respiratory Rate 16 16 Blood Pressure 112/82 112/82 125/86 Pulse Oximetry 97 97 Oxygen Delivery Method Room Air Room Air BMI result Body Mass Index 25.7 Labs 01/26/25 20:59 Labs: Laboratory Results - last 48 hr 01/25/25 01/25/25 01/26/25 16:48 21:06 07:28 Sodium 141 Potassium 4.3 Chloride 104 Carbon Dioxide 24 Anion Gap 17 BUN 11 Creatinine 0.88 Estim Creat Clear Calc Estimated GFR POC Glucose 142 H 180 H Random Glucose Calcium TSH [place] 01/26/25 01/26/25 01/26/25 07:28 07:28 07:28 Sodium Potassium Chloride Carbon Dioxide Anion Gap BUN Creatinine 0.88 Estim Creat Clear Calc 131.1 131.1 Estimated GFR > 60 > 60 POC Glucose Random Glucose 131 H Calcium 10.0 TSH 1.49 [place] 0.50 L 01/26/25 01/26/25 01/26/25 07:32 11:57 16:46 Sodium Potassium Chloride Carbon Dioxide Anion Gap BUN Creatinine Estim Creat Clear Calc Estimated GFR POC Glucose 144 H 91 135 H Random Glucose Calcium TSH [place] 01/26/25 01/26/25 01/27/25 20:59 21:09 07:37 Sodium 139 Potassium 3.9 Chloride 104 Carbon Dioxide 23 Anion Gap 16 BUN 12 Creatinine 0.87 Estim Creat Clear Calc 132.6 Estimated GFR > 60 POC Glucose 127 H 182 H Random Glucose 132 H Calcium 9.8 TSH [place] 0.26 L Medications Medications Current Medications Acetaminophen (Acetaminophen 325 Mg Tablet) 650 mg PO Q6H PRN PRN Reason: Headache/Pain, Scale 1-10 Last Admin: 01/26/25 21:11 Dose: 650 mg Al Hydroxide/Mg Hydroxide (Magnesium Hydrox/Alum Hydrox 30 Ml Oral.Susp) 30 ml PO Q6H PRN PRN Reason: Heartburn/Nausea Fenofibrate (Fenofibrate 54 Mg Tablet) 54 mg PO DAILY [facility] Last Admin: 01/27/25 08:36 Dose: 54 mg Hydrocortisone (Hydrocortisone 1 % Cream 28.35 Gm Tube) 1 appl TOPICAL BID PRN; Protocol PRN Reason: Rash Last Admin: 01/25/25 08:22 Dose: 1 appl Hydroxyzine HCl (Hydroxyzine Hcl 25 Mg Tablet) 25 mg PO Q6H PRN PRN Reason: mild anxiety Last Admin: 01/26/25 21:11 Dose: 25 mg Insulin Human Lispro (Insulin Lispro 100 Unit/Ml 3 Ml Vial) 0 unit SUBCUT QIDACHS [facility]; Protocol Last Admin: 01/27/25 12:51 Dose: Not Given [place] Carbonate ([place] Carbonate Er 300 Mg Tablet.Er) 600 mg PO BID [facility] Last Admin: 01/27/25 12:10 Dose: 600 mg Lurasidone HCl (Lurasidone Hcl 40 Mg Tablet) 40 mg PO DAILY@1700 [facility] Last Admin: 01/26/25 17:26 Dose: 40 mg Magnesium Hydroxide (Milk Of Magnesia 30 Ml Oral.Susp) 30 ml PO DAILY PRN PRN Reason: Constipation Metformin HCl (Metformin Hcl Er 500 Mg Tab.Er.24h) 1,000 mg PO BID [facility] Last Admin: 01/27/25 08:36 Dose: 1,000 mg Methocarbamol (Methocarbamol 750 Mg Tablet) 750 mg PO TID PRN PRN Reason: LOW BAXK PAIN Last Admin: 01/22/25 17:58 Dose: 750 mg Nicotine Polacrilex (Nicotine Polacrilex 2 Mg Gum) 4 mg BUCCAL Q2H PRN PRN Reason: Nicotine Cravings Nystatin (Nystatin Powder 15 Gm Bottle) 1 appl TOPICAL BID [facility]; Protocol Last Admin: 01/27/25 08:40 Dose: Not Given Olanzapine (Olanzapine 10 Mg Tablet) 10 mg PO BEDTIME [facility] Last Admin: 01/26/25 21:11 Dose: 10 mg Prazosin HCl (Prazosin Hcl 5 Mg Capsule) 5 mg PO BEDTIME [facility]; Protocol Allergies Allergies Allergy/AdvReac Type Severity Reaction Status Date / Time sertraline [From Zoloft] Allergy Unknown Verified 12/14/24 16:10 Assessment & Plan Assessment & Plan (1) Bipolar I disorder with catatonia: Status: Acute Code(s): F31.9 - Bipolar disorder, unspecified; F06.1 - Catatonic disorder due to known physiological condition (2) New onset type 2 diabetes mellitus: Status: Acute Code(s): E11.9 - Type 2 diabetes mellitus without complications Plan 01/05: restart olanzapine at 5 mg QHS. continue ECT. plan to add an anti-depressant, as the present episode of catatonia appears to be related to a depressive episode. mood stabilizer later. 01/06: clearly psychotic today more than yesterday. increase HS olanzapine to 10 mg, continue ECT tomorrow, #9. 01/07: denies AH prior to ECT. much less HERNAN after ECT, notes his own hunger, observed zealously eating breakfast. continue current mgmt. ECT #10 sunday. 01/08: some AH today. poor sleep per pt, slept 8 hours per staff. ECT #10 tomorrow. DC CO, change to Q5 min checks. continue current mgmt otherwise. 01/09: ECT #10 completed. less HERNAN, more fluid, more affectively expressive. continue current mgmt. 01/10: continues to improve in terms of spontaneity, affective expression. memory continues impaired. continue current mgmt. 01/11: improvement continues. ECT #11 tomorrow. medical consult for wrist lesion. presumed fungal at the moment, will try nystatin powder rather than bacitracin, which has not been helpful. 01/12 ECT was canceled by Dr. Emmanuel given patient's memory issues. Staff reported patient doing better this past weekend, interacting with peers, but patient has only vague memory of it. Patient however agrees that he is eating better. Patient wants medication for bipolar depression; does not remember if he has ever been on lithium before, says his would know. Started on prazosin 1 mg since complaining of nightmare 01/13: ECT yesterday held due to memory issues. increase prazosin to 2 mg QHS for nightmares and olanzapine to 20 mg QHS for AH/insomnia. per lewis, continue ECT tomorrow with bifrontal placement. 01/14: ECT #11 today, changed to bifrontal and 0.25 program for less cognitive s/e. increase prazosin to 3 mg QHS for sleep, continue zyprexa 20 mg QHS as well. continues to have AH at night as well as insomnia. an additional 10 mg zyprexa PRN was added. 01/15: insomnia and AH throughout the night. increase HS zyprexa to 30. ECT tomorrow. otherwise continue current mgmt. 01/16: gains continue. memory improved. slept better last night. still AH once awake overnight, however. no nightmares. ECT #12 completed today. perhaps one more ECT next , then to focus on psychopharm prior to discharge. 01/17 continue current meds. will check cmp prior to starting lithium. hospitalist consult for sharp lower back pain. 01/18 continue tx. 01/19 CMP showed critical BS level of 497, no known DM, ordered A1c- 7.2%, elevation in LFTs AST 66, ALT 189, Alk phos 127. triglycerides very elevated at 1218 (not fasting and will repeat tomorrow morning, but still suspect will be very high), no signs of acute pancreatitis at this point, Cholesterol 287. given this metabolic findings, switching to different antipsychotic other than olanzapine makes most sense. lower olanzapine to 20mg po qhs, can start latuda 20mg po with dinner. Added lispro, POC QIDACH, metformin ER 1000mg po daily, consult to hospitalist. 01/20 Patient reports he is overall better but not sure if his medications are adequate so that he can remain stable; discussed with patient Dr. Kan's plan for medications and patient agrees to remain on the unit for continued ECT and further medication management (other considerations include Vraylar, Vraylar instead of Zyprexa, Wellbutrin, Lamictal...). Patient reports trouble sleeping. -regarding sign out, patient has been responding well to ECT and agrees he is doing better. -Patient currently on: Latuda 20 mg at dinnertime Zyprexa 20 mg q.h.s. And was started on lithium 300 mg b.i.d. 01/21 Patient reports he is doing the same, overall better. Still trouble sleeping. And agrees for medication adjustment. Patient had significantly elevated TAG, was started on fenofibrate; however lab was taken later in the day and on inquiry patient said he did eat breakfast right before lab; will repeat lipid panel and make sure it is fasting before concluding he needs to be on special diet/fenofibrate -review of past lipid panels show consistently only mildly elevated accept for few times when they were taken later in the day Continue Latuda 20 mg at dinnertime Continue Zyprexa 20 mg q.h.s. Switch to lithium ER 600 mg q.h.s. for 1 time dosing and possibly to help asleep Start clonidine 0.1 mg q.h.s. for insomnia Repeat lipid panel 01/22 same presentation TAG lower on fasting lab but still elevated increasing prazosin for nightmares 01/23 no nightmares; feels he's doing better 01/24: continue current management and treatment plan. 01/25: Continue current management and treatment plan. 01/26: sleeping well, no nightmares. mood OK. increase latuda to 40 mg daily and drop HS zyprexa to 10 mg QHS. check lithium level tonight. clarify outpt ECT plan. discharge next week likely. 01/27: MNA and nightmare last night after zyprexa decrease. increase lithium to 600 BID and prazosin to 5 mg QHS. Reason for continued inpatient stay Substantial Risk for: rapid decompensation Time Spent With Patient Time: Total time managing care of this patient today __25__ minutes.
[2025-01-27] MEDS: Lurasidone HCl 40 MG TABLET PO (17:12)
[2025-01-27 20:00] VITALS: BP 114/77; PULSE 97; RESP 18; TEMP 36.8; O2SAT 98
[2025-01-27 20:03] LABS: Glucose, Whole Blood 159 mg/dL (60-115)
[2025-01-27 20:03] LABS: Glucose, Whole Blood 104 mg/dL (60-115)
[2025-01-27 20:11] LABS: Glucose, Whole Blood 183 mg/dL (60-115)
[2025-01-27] MEDS: Acetaminophen 325 MG TABLET 650 MG PO (20:15)
[2025-01-27 20:19] VITALS: BP 114/77
[2025-01-27] MEDS: Prazosin HCL 5 MG CAPSULE PO (20:19)
[2025-01-27] MEDS: OLANZapine 10 MG TABLET PO (20:19)
[2025-01-28 07:25] LABS: Glucose, Whole Blood 140 mg/dL (60-115)
[2025-01-28 07:39] VITALS: BP 130/76; PULSE 91; RESP 16; TEMP 36.4; O2SAT 100
[2025-01-28] MEDS: Fenofibrate 54 MG TABLET PO (08:32)
[2025-01-28] MEDS: Lithium Carbonate ER 300 MG TABLET.ER 600 MG PO ×2 (08:32→20:42)
[2025-01-28] MEDS: metFORMIN HCl ER 500 MG TAB.ER.24H 1000 MG PO ×2 (08:32→20:42)
[2025-01-28 11:54] LABS: Glucose, Whole Blood 105 mg/dL (60-115)
--- NOTE | 2025-01-28 13:38 | P.PNPSI_ITS ---
Subjective Subjective Date of Service: 01/28/25 Reason For Visit: Catatonia Interim History: continues much improved. amenable to check lithium in 5 days, taper zyprexa and titrate latuda, have one more ECT on sunday, then DC home shortly after. some parts professional awakening today, no nightmares. per staff, dep 5 anx 4. visible, social, taking meds. attending groups, sleeping well. Mental Status Exam Mental Status Exam Narrative: Appearance: casually groomed, good hygiene, in NAD behavior: cooperative Psychomotor: no agitation or retardation noted Speech: no latency; clear, normal rate/rhythm/volume, spontaneous TP: linear TC:hoping to go home soon Mood: okay Affect: congruent SI: none expressed HI: none expressed VH/AH: no overt signs Delusions: no overt delusional content reported or noted Insight/judgment: improving Memory/cog: alert, oriented x 4. Diagnostics Vital Signs (24Hr): Vital Signs - 24 hr 01/27/25 20:00 01/27/25 20:19 01/28/25 07:39 Temperature 98.2 F 97.6 F Pulse Rate 97 91 Respiratory Rate 18 16 Blood Pressure 114/77 114/77 130/76 Pulse Oximetry 98 100 Oxygen Delivery Method Room Air Room Air BMI result Body Mass Index 25.7 Labs 01/26/25 20:59 Labs: Laboratory Results - last 48 hr 01/26/25 01/26/25 01/26/25 16:46 20:59 21:09 Sodium 139 Potassium 3.9 Chloride 104 Carbon Dioxide 23 Anion Gap 16 BUN 12 Creatinine 0.87 Estim Creat Clear Calc 132.6 Estimated GFR > 60 POC Glucose 135 H 127 H Random Glucose 132 H Calcium 9.8 [place] 0.26 L 01/27/25 01/27/25 01/27/25 07:37 12:18 16:47 Sodium Potassium Chloride Carbon Dioxide Anion Gap BUN Creatinine Estim Creat Clear Calc Estimated GFR POC Glucose 182 H 159 H 104 Random Glucose Calcium [place] 01/27/25 01/28/25 01/28/25 20:07 07:22 11:49 Sodium Potassium Chloride Carbon Dioxide Anion Gap BUN Creatinine Estim Creat Clear Calc Estimated GFR POC Glucose 183 H 140 H 105 Random Glucose Calcium [place] Medications Medications Current Medications Acetaminophen (Acetaminophen 325 Mg Tablet) 650 mg PO Q6H PRN PRN Reason: Headache/Pain, Scale 1-10 Last Admin: 04/29/25 20:15 Dose: 650 mg Al Hydroxide/Mg Hydroxide (Magnesium Hydrox/Alum Hydrox 30 Ml Oral.Susp) 30 ml PO Q6H PRN PRN Reason: Heartburn/Nausea Fenofibrate (Fenofibrate 54 Mg Tablet) 54 mg PO DAILY [facility]AD[facility]IR Last Admin: 01/28/25 08:32 Dose: 54 mg Hydrocortisone (Hydrocortisone 1 % Cream 28.35 Gm Tube) 1 appl TOPICAL BID PRN; Protocol PRN Reason: Rash Last Admin: 01/25/25 08:22 Dose: 1 appl Hydroxyzine HCl (Hydroxyzine Hcl 25 Mg Tablet) 25 mg PO Q6H PRN PRN Reason: mild anxiety Last Admin: 01/26/25 21:11 Dose: 25 mg Insulin Human Lispro (Insulin Lispro 100 Unit/Ml 3 Ml Vial) 0 unit SUBCUT QIDACHS [facility]; Protocol Last Admin: 01/28/25 08:33 Dose: Not Given [place] Carbonate ([place] Carbonate Er 300 Mg Tablet.Er) 600 mg PO BID [facility] Last Admin: 01/28/25 08:32 Dose: 600 mg Lurasidone HCl (Lurasidone Hcl 20 Mg Tablet) 60 mg PO DAILY@1700 [facility] Magnesium Hydroxide (Milk Of Magnesia 30 Ml Oral.Susp) 30 ml PO DAILY PRN PRN Reason: Constipation Metformin HCl (Metformin Hcl Er 500 Mg Tab.Er.24h) 1,000 mg PO BID [facility] Last Admin: 01/28/25 08:32 Dose: 1,000 mg Methocarbamol (Methocarbamol 750 Mg Tablet) 750 mg PO TID PRN PRN Reason: LOW BAXK PAIN Last Admin: 01/22/25 17:58 Dose: 750 mg Nicotine Polacrilex (Nicotine Polacrilex 2 Mg Gum) 4 mg BUCCAL Q2H PRN PRN Reason: Nicotine Cravings Nystatin (Nystatin Powder 15 Gm Bottle) 1 appl TOPICAL BID [facility]; Protocol Last Admin: 01/27/25 20:20 Dose: Not Given Olanzapine (Olanzapine 10 Mg Tablet) 10 mg PO BEDTIME [facility] Last Admin: 01/27/25 20:19 Dose: 10 mg Prazosin HCl (Prazosin Hcl 5 Mg Capsule) 5 mg PO BEDTIME [facility]; Protocol Last Admin: 01/27/25 20:19 Dose: 5 mg Allergies Allergies Allergy/AdvReac Type Severity Reaction Status Date / Time sertraline [From Zoloft] Allergy Unknown Verified 12/14/24 16:10 Assessment & Plan Assessment & Plan (1) Bipolar I disorder with catatonia: Status: Acute Code(s): F31.9 - Bipolar disorder, unspecified; F06.1 - Catatonic disorder due to known physiological condition (2) New onset type 2 diabetes mellitus: Status: Acute Code(s): E11.9 - Type 2 diabetes mellitus without complications Plan 01/05: restart olanzapine at 5 mg QHS. continue ECT. plan to add an anti- depressant, as the present episode of catatonia appears to be related to a depressive episode. mood stabilizer later. 01/06: clearly psychotic today more than yesterday. increase HS olanzapine to 10 mg, continue ECT tomorrow, #9. 01/07: denies AH prior to ECT. much less HERNAN after ECT, notes his own hunger, observed zealously eating breakfast. continue current mgmt. ECT #10 sunday. 01/08: some AH today. poor sleep per pt, slept 8 hours per staff. ECT #10 tomorrow. DC CO, change to Q5 min checks. continue current mgmt otherwise. 01/09: ECT #10 completed. less HERNAN, more fluid, more affectively expressive. continue current mgmt. 01/10: continues to improve in terms of spontaneity, affective expression. memory continues impaired. continue current mgmt. 01/11: improvement continues. ECT #11 tomorrow. medical consult for wrist lesion. presumed fungal at the moment, will try nystatin powder rather than bacitracin, which has not been helpful. 01/12 ECT was canceled by Dr. Emmanuel given patient's memory issues. Staff reported patient doing better this past weekend, interacting with peers, but patient has only vague memory of it. Patient however agrees that he is eating better. Patient wants medication for bipolar depression; does not remember if he has ever been on lithium before, says his would know. Started on prazosin 1 mg since complaining of nightmare 01/13: ECT yesterday held due to memory issues. increase prazosin to 2 mg QHS for nightmares and olanzapine to 20 mg QHS for AH/insomnia. per lewis, continue ECT tomorrow with bifrontal placement. 01/14: ECT #11 today, changed to bifrontal and 0.25 program for less cognitive s/e. increase prazosin to 3 mg QHS for sleep, continue zyprexa 20 mg QHS as well. continues to have AH at night as well as insomnia. an additional 10 mg zyprexa PRN was added. 01/15: insomnia and AH throughout the night. increase HS zyprexa to 30. ECT tomorrow. otherwise continue current mgmt. 01/16: gains continue. memory improved. slept better last night. still AH once awake overnight, however. no nightmares. ECT #12 completed today. perhaps one more ECT next , then to focus on psychopharm prior to discharge. 01/17 continue current meds. will check cmp prior to starting lithium. hospitalist consult for sharp lower back pain. 01/18 continue tx. 01/19 CMP showed critical BS level of 497, no known DM, ordered A1c- 7.2%, elevation in LFTs AST 66, ALT 189, Alk phos 127. triglycerides very elevated at 1218 (not fasting and will repeat tomorrow morning, but still suspect will be very high), no signs of acute pancreatitis at this point, Cholesterol 287. given this metabolic findings, switching to different antipsychotic other than olanzapine makes most sense. lower olanzapine to 20mg po qhs, can start latuda 20mg po with dinner. Added lispro, POC QIDACH, metformin ER 1000mg po daily, consult to hospitalist. 01/20 Patient reports he is overall better but not sure if his medications are adequate so that he can remain stable; discussed with patient Dr. Kan's plan for medications and patient agrees to remain on the unit for continued ECT and further medication management (other considerations include Vraylar, Vraylar instead of Zyprexa, Wellbutrin, Lamictal...). Patient reports trouble sleeping. -regarding sign out, patient has been responding well to ECT and agrees he is doing better. -Patient currently on: Latuda 20 mg at dinnertime Zyprexa 20 mg q.h.s. And was started on lithium 300 mg b.i.d. 01/21 Patient reports he is doing the same, overall better. Still trouble sleeping. And agrees for medication adjustment. Patient had significantly elevated TAG, was started on fenofibrate; however lab was taken later in the day and on inquiry patient said he did eat breakfast right before lab; will repeat lipid panel and make sure it is fasting before concluding he needs to be on special diet/fenofibrate -review of past lipid panels show consistently only mildly elevated accept for few times when they were taken later in the day Continue Latuda 20 mg at dinnertime Continue Zyprexa 20 mg q.h.s. Switch to lithium ER 600 mg q.h.s. for 1 time dosing and possibly to help asleep Start clonidine 0.1 mg q.h.s. for insomnia Repeat lipid panel 01/22 same presentation TAG lower on fasting lab but still elevated increasing prazosin for nightmares 01/23 no nightmares; feels he's doing better 01/24: continue current management and treatment plan. 01/25: Continue current management and treatment plan. 01/26: sleeping well, no nightmares. mood OK. increase latuda to 40 mg daily and drop HS zyprexa to 10 mg QHS. check lithium level tonight. clarify outpt ECT plan. discharge next week likely. 01/27: MNA and nightmare last night after zyprexa decrease. increase lithium to 600 BID and prazosin to 5 mg QHS. 01/28: JEANNA and no nightmares last night. increase altaf latuda to 60 mg, continue other meds as they are. check lithium and labs sunday altaf, hold lithium sunday altaf for ECT sunday. Reason for continued inpatient stay Substantial Risk for: rapid decompensation Time Spent With Patient Time: Total time managing care of this patient today __25__ minutes.
[2025-01-28] MEDS: Acetaminophen 325 MG TABLET 650 MG PO (13:50)
[2025-01-28 16:40] LABS: Glucose, Whole Blood 116 mg/dL (60-115)
[2025-01-28] MEDS: Lurasidone HCl 20 MG TABLET 60 MG PO (17:01)
[2025-01-28 19:21] VITALS: BP 129/81; PULSE 94; RESP 16; TEMP 36.8; O2SAT 97
[2025-01-28 20:29] LABS: Glucose, Whole Blood 156 mg/dL (60-115)
[2025-01-28] MEDS: Prazosin HCL 5 MG CAPSULE PO (20:43)
[2025-01-28] MEDS: OLANZapine 10 MG TABLET PO (20:43)
[2025-01-28] MEDS: Insulin Lispro 100 UNIT/ML 3 ML VIAL SUBCUT (20:47)
[2025-01-29 07:00] VITALS: BMI 26.5
[2025-01-29 07:39] LABS: Glucose, Whole Blood 129 mg/dL (60-115)
[2025-01-29 07:41] VITALS: BP 116/74; PULSE 102; RESP 16; TEMP 36.4; O2SAT 99
[2025-01-29] MEDS: Lithium Carbonate ER 300 MG TABLET.ER 600 MG PO ×2 (08:01→20:36)
[2025-01-29] MEDS: metFORMIN HCl ER 500 MG TAB.ER.24H 1000 MG PO ×2 (08:02→20:37)
[2025-01-29] MEDS: Fenofibrate 54 MG TABLET PO (08:02)
[2025-01-29 11:40] LABS: Glucose, Whole Blood 95 mg/dL (60-115)
[2025-01-29] MEDS: Hydrocortisone 1 % Cream 28.35 GM TUBE 1 APPL TOPICAL ×2 (15:05→19:55)
--- NOTE | 2025-01-29 15:26 | HO.PSYCHPN ---
Subjective Subjective Date of Service: 01/29/25 Reason For Visit: Catatonia Interim History: slept about 5 hours, which he feels is poor. reporting weird dreams, but not nightmares. agreeable to start trazodone 100 QHS MR x 1, as that has been helpful for him in the past. planning to get one more ECT sunday then discharge home sunday. per staff, social, visible. attending groups. poor sleep. has outpt appointment next . Mental Status Exam Mental Status Exam Narrative: Appearance: casually groomed, good hygiene, in NAD behavior: cooperative Psychomotor: no agitation or retardation noted Speech: no latency; clear, normal rate/rhythm/volume, spontaneous TP: linear TC:hoping to go home soon Mood: okay Affect: congruent SI: none expressed HI: none expressed VH/AH: no overt signs Delusions: no overt delusional content reported or noted Insight/judgment: improving Memory/cog: alert, oriented x 4. Diagnostics Vital Signs (24Hr): Vital Signs - 24 hr 01/28/25 19:21 01/29/25 07:41 Temperature 98.2 F 97.6 F Pulse Rate 94 102 H Respiratory Rate 16 16 Blood Pressure 129/81 116/74 Pulse Oximetry 97 99 Oxygen Delivery Method Room Air Room Air BMI result Body Mass Index 26.5 Labs 01/26/25 20:59 Labs: Laboratory Results - last 48 hr 01/27/25 01/27/25 01/27/25 12:18 16:47 20:07 POC Glucose 159 H 104 183 H 01/28/25 01/28/25 01/28/25 07:22 11:49 16:36 POC Glucose 140 H 105 116 H 01/28/25 01/29/25 01/29/25 20:25 07:35 11:36 POC Glucose 156 H 129 H 95 Medications Medications Current Medications Acetaminophen (Acetaminophen 325 Mg Tablet) 650 mg PO Q6H PRN PRN Reason: Headache/Pain, Scale 1-10 Last Admin: 01/28/25 13:50 Dose: 650 mg Al Hydroxide/Mg Hydroxide (Magnesium Hydrox/Alum Hydrox 30 Ml Oral.Susp) 30 ml PO Q6H PRN PRN Reason: Heartburn/Nausea Fenofibrate (Fenofibrate 54 Mg Tablet) 54 mg PO DAILY VLADIMIR Last Admin: 01/29/25 08:02 Dose: 54 mg Hydrocortisone (Hydrocortisone 1 % Cream 28.35 Gm Tube) 1 appl TOPICAL BID PRN; Protocol PRN Reason: Rash Last Admin: 01/29/25 15:05 Dose: 1 appl Hydroxyzine HCl (Hydroxyzine Hcl 25 Mg Tablet) 25 mg PO Q6H PRN PRN Reason: mild anxiety Last Admin: 01/26/25 21:11 Dose: 25 mg Insulin Human Lispro (Insulin Lispro 100 Unit/Ml 3 Ml Vial) 0 unit SUBCUT QIDACHS [facility]; Protocol Last Admin: 01/29/25 07:45 Dose: Not Given [place] Carbonate ([place] Carbonate Er 300 Mg Tablet.Er) 600 mg PO BID [facility]AD[facility] Last Admin: 01/29/25 08:01 Dose: 600 mg Lurasidone HCl (Lurasidone Hcl 20 Mg Tablet) 60 mg PO DAILY@1700 [facility] Last Admin: 01/28/25 17:01 Dose: 60 mg Magnesium Hydroxide (Milk Of Magnesia 30 Ml Oral.Susp) 30 ml PO DAILY PRN PRN Reason: Constipation Metformin HCl (Metformin Hcl Er 500 Mg Tab.Er.24h) 1,000 mg PO BID [facility]ADIMIR Last Admin: 01/29/25 08:02 Dose: 1,000 mg Methocarbamol (Methocarbamol 750 Mg Tablet) 750 mg PO TID PRN PRN Reason: LOW BAXK PAIN Last Admin: 01/22/25 17:58 Dose: 750 mg Nicotine Polacrilex (Nicotine Polacrilex 2 Mg Gum) 4 mg BUCCAL Q2H PRN PRN Reason: Nicotine Cravings Nystatin (Nystatin Powder 15 Gm Bottle) 1 appl TOPICAL BID [facility]; Protocol Last Admin: 01/29/25 08:02 Dose: Not Given Olanzapine (Olanzapine 10 Mg Tablet) 10 mg PO BEDTIME [facility] Last Admin: 01/28/25 20:43 Dose: 10 mg Prazosin HCl (Prazosin Hcl 5 Mg Capsule) 5 mg PO BEDTIME [facility]; Protocol Last Admin: 01/28/25 20:43 Dose: 5 mg Trazodone HCl (Trazodone Hcl 100 Mg Tablet) 100 mg PO BEDTIME [facility] Trazodone HCl (Trazodone Hcl 100 Mg Tablet) 100 mg PO BEDTIME PRN PRN Reason: insomnia Allergies Allergies Allergy/AdvReac Type Severity Reaction Status Date / Time sertraline [From Zoloft] Allergy Unknown Verified 12/14/24 16:10 Assessment & Plan Assessment & Plan (1) Bipolar I disorder with catatonia: Status: Acute Code(s): F31.9 - Bipolar disorder, unspecified; F06.1 - Catatonic disorder due to known physiological condition (2) New onset type 2 diabetes mellitus: Status: Acute Code(s): E11.9 - Type 2 diabetes mellitus without complications Plan 01/05: restart olanzapine at 5 mg QHS. continue ECT. plan to add an anti-depressant, as the present episode of catatonia appears to be related to a depressive episode. mood stabilizer later. 01/06: clearly psychotic today more than yesterday. increase HS olanzapine to 10 mg, continue ECT tomorrow, #9. 01/07: denies AH prior to ECT. much less HERNAN after ECT, notes his own hunger, observed zealously eating breakfast. continue current mgmt. ECT #10 sunday. 01/08: some AH today. poor sleep per pt, slept 8 hours per staff. ECT #10 tomorrow. DC CO, change to Q5 min checks. continue current mgmt otherwise. 01/09: ECT #10 completed. less HERANN, more fluid, more affectively expressive. continue current mgmt. 01/10: continues to improve in terms of spontaneity, affective expression. memory continues impaired. continue current mgmt. 01/11: improvement continues. ECT #11 tomorrow. medical consult for wrist lesion. presumed fungal at the moment, will try nystatin powder rather than bacitracin, which has not been helpful. 01/12 ECT was canceled by Dr. Emmanuel given patient's memory issues. Staff reported patient doing better this past weekend, interacting with peers, but patient has only vague memory of it. Patient however agrees that he is eating better. Patient wants medication for bipolar depression; does not remember if he has ever been on lithium before, says his would know. Started on prazosin 1 mg since complaining of nightmare 01/13: ECT yesterday held due to memory issues. increase prazosin to 2 mg QHS for nightmares and olanzapine to 20 mg QHS for AH/insomnia. per lewis, continue ECT tomorrow with bifrontal placement. 01/14: ECT #11 today, changed to bifrontal and 0.25 program for less cognitive s/e. increase prazosin to 3 mg QHS for sleep, continue zyprexa 20 mg QHS as well. continues to have AH at night as well as insomnia. an additional 10 mg zyprexa PRN was added. 01/15: insomnia and AH throughout the night. increase HS zyprexa to 30. ECT tomorrow. otherwise continue current mgmt. 01/16: gains continue. memory improved. slept better last night. still AH once awake overnight, however. no nightmares. ECT #12 completed today. perhaps one more ECT next , then to focus on psychopharm prior to discharge. 01/17 continue current meds. will check cmp prior to starting lithium. hospitalist consult for sharp lower back pain. 01/18 continue tx. 01/19 CMP showed critical BS level of 497, no known DM, ordered A1c- 7.2%, elevation in LFTs AST 66, ALT 189, Alk phos 127. triglycerides very elevated at 1218 (not fasting and will repeat tomorrow morning, but still suspect will be very high), no signs of acute pancreatitis at this point, Cholesterol 287. given this metabolic findings, switching to different antipsychotic other than olanzapine makes most sense. lower olanzapine to 20mg po qhs, can start latuda 20mg po with dinner. Added lispro, POC QIDACH, metformin ER 1000mg po daily, consult to hospitalist. 01/20 Patient reports he is overall better but not sure if his medications are adequate so that he can remain stable; discussed with patient Dr. Kan's plan for medications and patient agrees to remain on the unit for continued ECT and further medication management (other considerations include Vraylar, Vraylar instead of Zyprexa, Wellbutrin, Lamictal...). Patient reports trouble sleeping. -regarding sign out, patient has been responding well to ECT and agrees he is doing better. -Patient currently on: Latuda 20 mg at dinnertime Zyprexa 20 mg q.h.s. And was started on lithium 300 mg b.i.d. 01/21 Patient reports he is doing the same, overall better. Still trouble sleeping. And agrees for medication adjustment. Patient had significantly elevated TAG, was started on fenofibrate; however lab was taken later in the day and on inquiry patient said he did eat breakfast right before lab; will repeat lipid panel and make sure it is fasting before concluding he needs to be on special diet/fenofibrate -review of past lipid panels show consistently only mildly elevated accept for few times when they were taken later in the day Continue Latuda 20 mg at dinnertime Continue Zyprexa 20 mg q.h.s. Switch to lithium ER 600 mg q.h.s. for 1 time dosing and possibly to help asleep Start clonidine 0.1 mg q.h.s. for insomnia Repeat lipid panel 01/22 same presentation TAG lower on fasting lab but still elevated increasing prazosin for nightmares 01/23 no nightmares; feels he's doing better 01/24: continue current management and treatment plan. 01/25: Continue current management and treatment plan. 01/26: sleeping well, no nightmares. mood OK. increase latuda to 40 mg daily and drop HS zyprexa to 10 mg QHS. check lithium level tonight. clarify outpt ECT plan. discharge next week likely. 01/27: MNA and nightmare last night after zyprexa decrease. increase lithium to 600 BID and prazosin to 5 mg QHS. 01/28: JEANNA and no nightmares last night. increase altaf latuda to 60 mg, continue other meds as they are. check lithium and labs sunday, hold lithium sunday altaf for ECT sunday. 01/29: poor sleep again last night. start trazodone 100 QHS MR x 1. otherwise continue current mgmt. Reason for continued inpatient stay Substantial Risk for: rapid decompensation Time Spent With Patient Time: Total time managing care of this patient today _25___ minutes.
[2025-01-29 16:46] LABS: Glucose, Whole Blood 113 mg/dL (60-115)
[2025-01-29] MEDS: Lurasidone HCl 20 MG TABLET 60 MG PO (16:59)
[2025-01-29 19:42] VITALS: BP 117/67; PULSE 104; RESP 16; TEMP 36.9; O2SAT 98
[2025-01-29 20:32] LABS: Glucose, Whole Blood 174 mg/dL (60-115)
[2025-01-29] MEDS: Prazosin HCL 5 MG CAPSULE PO (20:36)
[2025-01-29] MEDS: traZODone HCL 100 MG TABLET PO (20:36)
[2025-01-29] MEDS: OLANZapine 10 MG TABLET PO (20:37)
[2025-01-29] MEDS: Insulin Lispro 100 UNIT/ML 3 ML VIAL SUBCUT (20:38)
[2025-01-30 07:20] VITALS: BP 104/61; PULSE 90; RESP 16; TEMP 36.8; O2SAT 94
[2025-01-30 07:52] LABS: Glucose, Whole Blood 115 mg/dL (60-115)
[2025-01-30] MEDS: Lithium Carbonate ER 300 MG TABLET.ER 600 MG PO ×2 (08:32→20:59)
[2025-01-30] MEDS: metFORMIN HCl ER 500 MG TAB.ER.24H 1000 MG PO ×2 (08:32→21:00)
[2025-01-30] MEDS: Fenofibrate 54 MG TABLET PO (08:32)
[2025-01-30 12:00] LABS: Glucose, Whole Blood 89 mg/dL (60-115)
--- NOTE | 2025-01-30 14:12 | P.PNPSI_ITS ---
Subjective Subjective Date of Service: 01/30/25 Reason For Visit: Catatonia Interim History: calm, cooperative. appears well. no PMA/PMR. no latency. c/o poor sleep. restless. agreeable to increase trazodone to 200 mg QHS. per staff, slept 7 hours, broken. Mental Status Exam Mental Status Exam Narrative: Appearance: casually groomed, good hygiene, in NAD behavior: cooperative Psychomotor: no agitation or retardation noted Speech: no latency; clear, normal rate/rhythm/volume, spontaneous TP: linear TC:hoping to go home soon Mood: okay Affect: congruent SI: none expressed HI: none expressed VH/AH: no overt signs Delusions: no overt delusional content reported or noted Insight/judgment: improving Memory/cog: alert, oriented x 4. Diagnostics Vital Signs (24Hr): Vital Signs - 24 hr 01/29/25 19:42 01/30/25 07:20 Temperature 98.4 F 98.2 F Pulse Rate 104 H 90 Respiratory Rate 16 16 Blood Pressure 117/67 104/61 Pulse Oximetry 98 94 Oxygen Delivery Method Room Air Room Air BMI result Body Mass Index 26.5 Labs 01/26/25 20:59 Labs: Laboratory Results - last 48 hr 01/28/25 01/28/25 01/29/25 16:36 20:25 07:35 POC Glucose 116 H 156 H 129 H 01/29/25 01/29/25 01/29/25 11:36 16:41 20:27 POC Glucose 95 113 174 H 01/30/25 01/30/25 07:47 11:56 POC Glucose 115 89 Medications Medications Current Medications Acetaminophen (Acetaminophen 325 Mg Tablet) 650 mg PO Q6H PRN PRN Reason: Headache/Pain, Scale 1-10 Last Admin: 01/28/25 13:50 Dose: 650 mg Al Hydroxide/Mg Hydroxide (Magnesium Hydrox/Alum Hydrox 30 Ml Oral.Susp) 30 ml PO Q6H PRN PRN Reason: Heartburn/Nausea Fenofibrate (Fenofibrate 54 Mg Tablet) 54 mg PO DAILY VLADIMIR Last Admin: 01/30/25 08:32 Dose: 54 mg Hydrocortisone (Hydrocortisone 1 % Cream 28.35 Gm Tube) 1 appl TOPICAL BID PRN; Protocol PRN Reason: Rash Last Admin: 01/29/25 19:55 Dose: 1 appl Hydroxyzine HCl (Hydroxyzine Hcl 25 Mg Tablet) 25 mg PO Q6H PRN PRN Reason: mild anxiety Last Admin: 01/26/25 21:11 Dose: 25 mg Insulin Human Lispro (Insulin Lispro 100 Unit/Ml 3 Ml Vial) 0 unit SUBCUT QIDACHS [facility]; Protocol Last Admin: 01/30/25 07:53 Dose: Not Given [place] Carbonate ([place] Carbonate Er 300 Mg Tablet.Er) 600 mg PO BID [facility] Last Admin: 01/30/25 08:32 Dose: 600 mg Lurasidone HCl (Lurasidone Hcl 20 Mg Tablet) 60 mg PO DAILY@1700 [facility] Last Admin: 01/29/25 16:59 Dose: 60 mg Magnesium Hydroxide (Milk Of Magnesia 30 Ml Oral.Susp) 30 ml PO DAILY PRN PRN Reason: Constipation Metformin HCl (Metformin Hcl Er 500 Mg Tab.Er.24h) 1,000 mg PO BID [facility] Last Admin: 01/30/25 08:32 Dose: 1,000 mg Methocarbamol (Methocarbamol 750 Mg Tablet) 750 mg PO TID PRN PRN Reason: LOW BAXK PAIN Last Admin: 01/22/25 17:58 Dose: 750 mg Nicotine Polacrilex (Nicotine Polacrilex 2 Mg Gum) 4 mg BUCCAL Q2H PRN PRN Reason: Nicotine Cravings Nystatin (Nystatin Powder 15 Gm Bottle) 1 appl TOPICAL BID [facility]; Protocol Last Admin: 01/29/25 20:41 Dose: Not Given Olanzapine (Olanzapine 10 Mg Tablet) 10 mg PO BEDTIME [facility] Last Admin: 01/29/25 20:37 Dose: 10 mg Prazosin HCl (Prazosin Hcl 5 Mg Capsule) 5 mg PO BEDTIME [facility]; Protocol Last Admin: 01/29/25 20:36 Dose: 5 mg Trazodone HCl (Trazodone Hcl 100 Mg Tablet) 100 mg PO BEDTIME PRN PRN Reason: insomnia Trazodone HCl (Trazodone Hcl 100 Mg Tablet) 200 mg PO BEDTIME [facility] Allergies Allergies Allergy/AdvReac Type Severity Reaction Status Date / Time sertraline [From Zoloft] Allergy Unknown Verified 12/14/24 16:10 Assessment & Plan Assessment & Plan (1) Bipolar I disorder with catatonia: Status: Acute Code(s): F31.9 - Bipolar disorder, unspecified; F06.1 - Catatonic disorder due to known physiological condition (2) New onset type 2 diabetes mellitus: Status: Acute Code(s): E11.9 - Type 2 diabetes mellitus without complications Plan 01/05: restart olanzapine at 5 mg QHS. continue ECT. plan to add an anti- depressant, as the present episode of catatonia appears to be related to a depressive episode. mood stabilizer later. 01/06: clearly psychotic today more than yesterday. increase HS olanzapine to 10 mg, continue ECT tomorrow, #9. 01/07: denies AH prior to ECT. much less HERNAN after ECT, notes his own hunger, observed zealously eating breakfast. continue current mgmt. ECT #10 sunday. 01/08: some AH today. poor sleep per pt, slept 8 hours per staff. ECT #10 tomorrow. DC CO, change to Q5 min checks. continue current mgmt otherwise. 01/09: ECT #10 completed. less HERNAN, more fluid, more affectively expressive. continue current mgmt. 01/10: continues to improve in terms of spontaneity, affective expression. memory continues impaired. continue current mgmt. 01/11: improvement continues. ECT #11 tomorrow. medical consult for wrist lesion. presumed fungal at the moment, will try nystatin powder rather than bacitracin, which has not been helpful. 01/12 ECT was canceled by Dr. Emmanuel given patient's memory issues. Staff reported patient doing better this past weekend, interacting with peers, but patient has only vague memory of it. Patient however agrees that he is eating better. Patient wants medication for bipolar depression; does not remember if he has ever been on lithium before, says his would know. Started on prazosin 1 mg since complaining of nightmare 01/13: ECT yesterday held due to memory issues. increase prazosin to 2 mg QHS for nightmares and olanzapine to 20 mg QHS for AH/insomnia. per lewis, continue ECT tomorrow with bifrontal placement. 01/14: ECT #11 today, changed to bifrontal and 0.25 program for less cognitive s/e. increase prazosin to 3 mg QHS for sleep, continue zyprexa 20 mg QHS as well. continues to have AH at night as well as insomnia. an additional 10 mg zyprexa PRN was added. 01/15: insomnia and AH throughout the night. increase HS zyprexa to 30. ECT tomorrow. otherwise continue current mgmt. 01/16: gains continue. memory improved. slept better last night. still AH once awake overnight, however. no nightmares. ECT #12 completed today. perhaps one more ECT next , then to focus on psychopharm prior to discharge. 01/17 continue current meds. will check cmp prior to starting lithium. hospitalist consult for sharp lower back pain. 01/18 continue tx. 01/19 CMP showed critical BS level of 497, no known DM, ordered A1c- 7.2%, elevation in LFTs AST 66, ALT 189, Alk phos 127. triglycerides very elevated at 1218 (not fasting and will repeat tomorrow morning, but still suspect will be very high), no signs of acute pancreatitis at this point, Cholesterol 287. given this metabolic findings, switching to different antipsychotic other than olanzapine makes most sense. lower olanzapine to 20mg po qhs, can start latuda 20mg po with dinner. Added lispro, POC QIDACH, metformin ER 1000mg po daily, consult to hospitalist. 01/20 Patient reports he is overall better but not sure if his medications are adequate so that he can remain stable; discussed with patient Dr. Kan's plan for medications and patient agrees to remain on the unit for continued ECT and further medication management (other considerations include Vraylar, Vraylar instead of Zyprexa, Wellbutrin, Lamictal...). Patient reports trouble sleeping. -regarding sign out, patient has been responding well to ECT and agrees he is doing better. -Patient currently on: Latuda 20 mg at dinnertime Zyprexa 20 mg q.h.s. And was started on lithium 300 mg b.i.d. 01/21 Patient reports he is doing the same, overall better. Still trouble sleeping. And agrees for medication adjustment. Patient had significantly elevated TAG, was started on fenofibrate; however lab was taken later in the day and on inquiry patient said he did eat breakfast right before lab; will repeat lipid panel and make sure it is fasting before concluding he needs to be on special diet/fenofibrate -review of past lipid panels show consistently only mildly elevated accept for few times when they were taken later in the day Continue Latuda 20 mg at dinnertime Continue Zyprexa 20 mg q.h.s. Switch to lithium ER 600 mg q.h.s. for 1 time dosing and possibly to help asleep Start clonidine 0.1 mg q.h.s. for insomnia Repeat lipid panel 01/22 same presentation TAG lower on fasting lab but still elevated increasing prazosin for nightmares 01/23 no nightmares; feels he's doing better 01/24: continue current management and treatment plan. 01/25: Continue current management and treatment plan. 01/26: sleeping well, no nightmares. mood OK. increase latuda to 40 mg daily and drop HS zyprexa to 10 mg QHS. check lithium level tonight. clarify outpt ECT plan. discharge next week likely. 01/27: MNA and nightmare last night after zyprexa decrease. increase lithium to 600 BID and prazosin to 5 mg QHS. 01/28: JEANNA and no nightmares last night. increase altaf latuda to 60 mg, continue other meds as they are. check lithium and labs sunday altaf, hold lithium sunday altaf for ECT sunday. 01/29: poor sleep again last night. start trazodone 100 QHS MR x 1. otherwise continue current mgmt. 01/30: poor sleep continues. increase trazodone to 200 mg QHS. otherwise continue current mgmt. case d/w pt's at pt's request. Reason for continued inpatient stay Substantial Risk for: inability to function and rapid decompensation Time Spent With Patient Time: Total time managing care of this patient today __35__ minutes.
[2025-01-30 16:52] LABS: Glucose, Whole Blood 125 mg/dL (60-115)
[2025-01-30] MEDS: Lurasidone HCl 20 MG TABLET 60 MG PO (17:22)
[2025-01-30] MEDS: Hydrocortisone 1 % Cream 28.35 GM TUBE 1 APPL TOPICAL (17:24)
[2025-01-30 20:46] LABS: Glucose, Whole Blood 166 mg/dL (60-115)
[2025-01-30 20:50] VITALS: BP 120/74; PULSE 95; RESP 16; TEMP 37.4; O2SAT 97
[2025-01-30] MEDS: traZODone HCL 100 MG TABLET 200 MG PO (20:59)
[2025-01-30] MEDS: Prazosin HCL 5 MG CAPSULE PO (21:00)
[2025-01-30] MEDS: OLANZapine 10 MG TABLET PO (21:00)
[2025-01-30] MEDS: Insulin Lispro 100 UNIT/ML 3 ML VIAL SUBCUT (21:01)
[2025-01-31 07:55] LABS: Glucose, Whole Blood 103 mg/dL (60-115)
[2025-01-31 08:00] VITALS: BP 96/63; PULSE 86; RESP 14; TEMP 36.8; O2SAT 99
[2025-01-31] MEDS: Lithium Carbonate ER 300 MG TABLET.ER 600 MG PO ×2 (08:21→20:02)
[2025-01-31] MEDS: metFORMIN HCl ER 500 MG TAB.ER.24H 1000 MG PO ×2 (08:22→20:01)
[2025-01-31] MEDS: Fenofibrate 54 MG TABLET PO (08:22)
[2025-01-31] MEDS: Hydrocortisone 1 % Cream 28.35 GM TUBE 1 APPL TOPICAL (10:41)
[2025-01-31 11:45] LABS: Glucose, Whole Blood 95 mg/dL (60-115)
[2025-01-31 16:44] LABS: Glucose, Whole Blood 119 mg/dL (60-115)
[2025-01-31] MEDS: Lurasidone HCl 80 MG TABLET PO (16:58)
[2025-01-31 19:37] LABS: Glucose, Whole Blood 198 mg/dL (60-115)
--- NOTE | 2025-01-31 19:58 | HO.PSYCHPN ---
Subjective Subjective Date of Service: 01/31/25 Reason For Visit: Catatonia Interim History: calm, cooperative, pleasant. reports ongoing poor sleep. agreeable to increase evening latuda to 80 mg. per staff, social, appropriate. mild anx/dep. no nightmares. still MNA. slept 4-5 hours. Mental Status Exam Mental Status Exam Narrative: Appearance: casually groomed, good hygiene, in NAD behavior: cooperative Psychomotor: no agitation or retardation noted Speech: no latency; clear, normal rate/rhythm/volume, spontaneous TP: linear TC:hoping to go home soon Mood: okay Affect: congruent SI: none expressed HI: none expressed VH/AH: no overt signs Delusions: no overt delusional content reported or noted Insight/judgment: improving Memory/cog: alert, oriented x 4. Diagnostics Vital Signs (24Hr): Vital Signs - 24 hr 01/30/25 20:50 01/31/25 08:00 Temperature 99.4 F 98.2 F Pulse Rate 95 86 Respiratory Rate 16 14 Blood Pressure 120/74 96/63 Pulse Oximetry 97 99 Oxygen Delivery Method Room Air Room Air BMI result Body Mass Index 26.5 Labs 01/26/25 20:59 Labs: Laboratory Results - last 48 hr 01/29/25 01/30/25 01/30/25 20:27 07:47 11:56 POC Glucose 174 H 115 89 01/30/25 01/30/25 01/31/25 16:46 20:42 07:51 POC Glucose 125 H 166 H 103 01/31/25 01/31/25 01/31/25 11:40 16:40 19:29 POC Glucose 95 119 H 198 H Medications Medications Current Medications Acetaminophen (Acetaminophen 325 Mg Tablet) 650 mg PO Q6H PRN PRN Reason: Headache/Pain, Scale 1-10 Last Admin: 01/28/25 13:50 Dose: 650 mg Al Hydroxide/Mg Hydroxide (Magnesium Hydrox/Alum Hydrox 30 Ml Oral.Susp) 30 ml PO Q6H PRN PRN Reason: Heartburn/Nausea Fenofibrate (Fenofibrate 54 Mg Tablet) 54 mg PO DAILY VLADIMIR Last Admin: 01/31/25 08:22 Dose: 54 mg Hydrocortisone (Hydrocortisone 1 % Cream 28.35 Gm Tube) 1 appl TOPICAL BID PRN; Protocol PRN Reason: Rash Last Admin: 01/31/25 10:41 Dose: 1 appl Hydroxyzine HCl (Hydroxyzine Hcl 25 Mg Tablet) 25 mg PO Q6H PRN PRN Reason: mild anxiety Last Admin: 01/26/25 21:11 Dose: 25 mg Insulin Human Lispro (Insulin Lispro 100 Unit/Ml 3 Ml Vial) 0 unit SUBCUT QIDACHS [facility]; Protocol Last Admin: 01/31/25 16:43 Dose: Not Given [place] Carbonate ([place] Carbonate Er 300 Mg Tablet.Er) 600 mg PO BID [facility] Last Admin: 01/31/25 08:21 Dose: 600 mg Lurasidone HCl (Lurasidone Hcl 80 Mg Tablet) 80 mg PO DAILY@1700 [facility] Last Admin: 01/31/25 16:58 Dose: 80 mg Magnesium Hydroxide (Milk Of Magnesia 30 Ml Oral.Susp) 30 ml PO DAILY PRN PRN Reason: Constipation Metformin HCl (Metformin Hcl Er 500 Mg Tab.Er.24h) 1,000 mg PO BID [facility] Last Admin: 01/31/25 08:22 Dose: 1,000 mg Methocarbamol (Methocarbamol 750 Mg Tablet) 750 mg PO TID PRN PRN Reason: LOW BAXK PAIN Last Admin: 01/22/25 17:58 Dose: 750 mg Nicotine Polacrilex (Nicotine Polacrilex 2 Mg Gum) 4 mg BUCCAL Q2H PRN PRN Reason: Nicotine Cravings Nystatin (Nystatin Powder 15 Gm Bottle) 1 appl TOPICAL BID [facility]; Protocol Last Admin: 01/31/25 08:23 Dose: Not Given Olanzapine (Olanzapine 10 Mg Tablet) 10 mg PO BEDTIME [facility] Last Admin: 01/30/25 21:00 Dose: 10 mg Prazosin HCl (Prazosin Hcl 5 Mg Capsule) 5 mg PO BEDTIME [facility]; Protocol Last Admin: 01/30/25 21:00 Dose: 5 mg Trazodone HCl (Trazodone Hcl 100 Mg Tablet) 100 mg PO BEDTIME PRN PRN Reason: insomnia Trazodone HCl (Trazodone Hcl 100 Mg Tablet) 200 mg PO BEDTIME [facility] Last Admin: 01/30/25 20:59 Dose: 200 mg Allergies Allergies Allergy/AdvReac Type Severity Reaction Status Date / Time sertraline [From Zoloft] Allergy Unknown Verified 12/14/24 16:10 Assessment & Plan Assessment & Plan (1) Bipolar I disorder with catatonia: Status: Acute Code(s): F31.9 - Bipolar disorder, unspecified; F06.1 - Catatonic disorder due to known physiological condition (2) New onset type 2 diabetes mellitus: Status: Acute Code(s): E11.9 - Type 2 diabetes mellitus without complications Plan 01/05: restart olanzapine at 5 mg QHS. continue ECT. plan to add an anti-depressant, as the present episode of catatonia appears to be related to a depressive episode. mood stabilizer later. 01/06: clearly psychotic today more than yesterday. increase HS olanzapine to 10 mg, continue ECT tomorrow, #9. 01/07: denies AH prior to ECT. much less HERNAN after ECT, notes his own hunger, observed zealously eating breakfast. continue current mgmt. ECT #10 sunday. 01/08: some AH today. poor sleep per pt, slept 8 hours per staff. ECT #10 tomorrow. DC CO, change to Q5 min checks. continue current mgmt otherwise. 01/09: ECT #10 completed. less HERNAN, more fluid, more affectively expressive. continue current mgmt. 01/10: continues to improve in terms of spontaneity, affective expression. memory continues impaired. continue current mgmt. 01/11: improvement continues. ECT #11 tomorrow. medical consult for wrist lesion. presumed fungal at the moment, will try nystatin powder rather than bacitracin, which has not been helpful. 01/12 ECT was canceled by Dr. Emmanuel given patient's memory issues. Staff reported patient doing better this past weekend, interacting with peers, but patient has only vague memory of it. Patient however agrees that he is eating better. Patient wants medication for bipolar depression; does not remember if he has ever been on lithium before, says his would know. Started on prazosin 1 mg since complaining of nightmare 01/13: ECT yesterday held due to memory issues. increase prazosin to 2 mg QHS for nightmares and olanzapine to 20 mg QHS for AH/insomnia. per lewis, continue ECT tomorrow with bifrontal placement. 01/14: ECT #11 today, changed to bifrontal and 0.25 program for less cognitive s/e. increase prazosin to 3 mg QHS for sleep, continue zyprexa 20 mg QHS as well. continues to have AH at night as well as insomnia. an additional 10 mg zyprexa PRN was added. 01/15: insomnia and AH throughout the night. increase HS zyprexa to 30. ECT tomorrow. otherwise continue current mgmt. 01/16: gains continue. memory improved. slept better last night. still AH once awake overnight, however. no nightmares. ECT #12 completed today. perhaps one more ECT next , then to focus on psychopharm prior to discharge. 01/17 continue current meds. will check cmp prior to starting lithium. hospitalist consult for sharp lower back pain. 01/18 continue tx. 01/19 CMP showed critical BS level of 497, no known DM, ordered A1c- 7.2%, elevation in LFTs AST 66, ALT 189, Alk phos 127. triglycerides very elevated at 1218 (not fasting and will repeat tomorrow morning, but still suspect will be very high), no signs of acute pancreatitis at this point, Cholesterol 287. given this metabolic findings, switching to different antipsychotic other than olanzapine makes most sense. lower olanzapine to 20mg po qhs, can start latuda 20mg po with dinner. Added lispro, POC QIDACH, metformin ER 1000mg po daily, consult to hospitalist. 01/20 Patient reports he is overall better but not sure if his medications are adequate so that he can remain stable; discussed with patient Dr. Kan's plan for medications and patient agrees to remain on the unit for continued ECT and further medication management (other considerations include Vraylar, Vraylar instead of Zyprexa, Wellbutrin, Lamictal...). Patient reports trouble sleeping. -regarding sign out, patient has been responding well to ECT and agrees he is doing better. -Patient currently on: Latuda 20 mg at dinnertime Zyprexa 20 mg q.h.s. And was started on lithium 300 mg b.i.d. 01/21 Patient reports he is doing the same, overall better. Still trouble sleeping. And agrees for medication adjustment. Patient had significantly elevated TAG, was started on fenofibrate; however lab was taken later in the day and on inquiry patient said he did eat breakfast right before lab; will repeat lipid panel and make sure it is fasting before concluding he needs to be on special diet/fenofibrate -review of past lipid panels show consistently only mildly elevated accept for few times when they were taken later in the day Continue Latuda 20 mg at dinnertime Continue Zyprexa 20 mg q.h.s. Switch to lithium ER 600 mg q.h.s. for 1 time dosing and possibly to help asleep Start clonidine 0.1 mg q.h.s. for insomnia Repeat lipid panel 01/22 same presentation TAG lower on fasting lab but still elevated increasing prazosin for nightmares 01/23 no nightmares; feels he's doing better 01/24: continue current management and treatment plan. 01/25: Continue current management and treatment plan. 01/26: sleeping well, no nightmares. mood OK. increase latuda to 40 mg daily and drop HS zyprexa to 10 mg QHS. check lithium level tonight. clarify outpt ECT plan. discharge next week likely. 01/27: MNA and nightmare last night after zyprexa decrease. increase lithium to 600 BID and prazosin to 5 mg QHS. 01/28: JEANNA and no nightmares last night. increase altaf latuda to 60 mg, continue other meds as they are. check lithium and labs sunday altaf, hold lithium sunday altaf for ECT sunday. 01/29: poor sleep again last night. start trazodone 100 QHS MR x 1. otherwise continue current mgmt. 01/30: poor sleep continues. increase trazodone to 200 mg QHS. otherwise continue current mgmt. case d/w pt's at pt's request. 01/31: poor sleep continues. increase evening latuda to 80 mg. check lithium level tomorrow night. sunday ECT, sunday discharge. Reason for continued inpatient stay Substantial Risk for: rapid decompensation Time Spent With Patient Time: Total time managing care of this patient today ____ minutes.
[2025-01-31 20:00] VITALS: BP 111/65; PULSE 96; RESP 16; TEMP 36.4; O2SAT 96
[2025-01-31] MEDS: Prazosin HCL 5 MG CAPSULE PO (20:01)
[2025-01-31] MEDS: traZODone HCL 100 MG TABLET 200 MG PO (20:01)
[2025-01-31] MEDS: Insulin Lispro 100 UNIT/ML 3 ML VIAL SUBCUT (20:02)
[2025-01-31] MEDS: OLANZapine 10 MG TABLET PO (20:02)
[2025-01-31] MEDS: traZODone HCL 100 MG TABLET PO (22:30)
[2025-02-01 07:54] VITALS: BP 127/67; PULSE 93; RESP 16; TEMP 36.5; O2SAT 96
[2025-02-01 08:03] LABS: Glucose, Whole Blood 201 mg/dL (60-115)
[2025-02-01] MEDS: Lithium Carbonate ER 300 MG TABLET.ER 600 MG PO (08:17)
[2025-02-01] MEDS: Insulin Lispro 100 UNIT/ML 3 ML VIAL SUBCUT ×2 (08:17→20:46)
[2025-02-01] MEDS: Fenofibrate 54 MG TABLET PO (08:18)
[2025-02-01] MEDS: metFORMIN HCl ER 500 MG TAB.ER.24H 1000 MG PO ×2 (08:18→20:43)
[2025-02-01 11:42] LABS: Glucose, Whole Blood 94 mg/dL (60-115)
[2025-02-01] MEDS: Loperamide HCl 2 MG CAPSULE PO (15:39)
[2025-02-01] MEDS: Acetaminophen 325 MG TABLET 650 MG PO (16:34)
[2025-02-01 16:51] LABS: Glucose, Whole Blood 93 mg/dL (60-115)
--- NOTE | 2025-02-01 16:51 | HO.PSYCHPN ---
Subjective Subjective Date of Service: 02/01/25 Reason For Visit: Catatonia Interim History: slept a bit better last night, reports the increase in latuda to 80 made a difference. ageeable to decrease zyprexa to 5 tonight. ECT tomorrow, planning for discharge on sunday. per staff, poor sleep 2 nights ago. slept 6 hours last night. asking for room change due to loud roommate. ECT tomorrow. Mental Status Exam Mental Status Exam Narrative: Appearance: casually groomed, good hygiene, in NAD behavior: cooperative Psychomotor: no agitation or retardation noted Speech: no latency; clear, normal rate/rhythm/volume, spontaneous TP: linear TC:hoping to go home soon Mood: okay Affect: congruent SI: none expressed HI: none expressed VH/AH: no overt signs Delusions: no overt delusional content reported or noted Insight/judgment: improving Memory/cog: alert, oriented x 4. Diagnostics Vital Signs (24Hr): Vital Signs - 24 hr 01/31/25 20:00 02/01/25 07:54 Temperature 97.5 F 97.7 F Pulse Rate 96 93 Respiratory Rate 16 16 Blood Pressure 111/65 127/67 Pulse Oximetry 96 96 Oxygen Delivery Method Room Air Room Air BMI result Body Mass Index 26.5 Labs 01/26/25 20:59 Labs: Laboratory Results - last 48 hr 01/30/25 01/30/25 01/31/25 16:46 20:42 07:51 POC Glucose 125 H 166 H 103 01/31/25 01/31/25 01/31/25 11:40 16:40 19:29 POC Glucose 95 119 H 198 H 02/01/25 02/01/25 07:56 11:34 POC Glucose 201 H 94 Medications Medications Current Medications Acetaminophen (Acetaminophen 325 Mg Tablet) 650 mg PO Q6H PRN PRN Reason: Headache/Pain, Scale 1-10 Last Admin: 02/01/25 16:34 Dose: 650 mg Al Hydroxide/Mg Hydroxide (Magnesium Hydrox/Alum Hydrox 30 Ml Oral.Susp) 30 ml PO Q6H PRN PRN Reason: Heartburn/Nausea Fenofibrate (Fenofibrate 54 Mg Tablet) 54 mg PO DAILY VLADIMIR Last Admin: 02/01/25 08:18 Dose: 54 mg Hydrocortisone (Hydrocortisone 1 % Cream 28.35 Gm Tube) 1 appl TOPICAL BID PRN; Protocol PRN Reason: Rash Last Admin: 01/31/25 10:41 Dose: 1 appl Hydroxyzine HCl (Hydroxyzine Hcl 25 Mg Tablet) 25 mg PO Q6H PRN PRN Reason: mild anxiety Last Admin: 01/26/25 21:11 Dose: 25 mg Insulin Human Lispro (Insulin Lispro 100 Unit/Ml 3 Ml Vial) 0 unit SUBCUT QIDACHS VLADIMIR; Protocol Last Admin: 02/01/25 11:48 Dose: Not Given [place] Carbonate ([place] Carbonate Er 300 Mg Tablet.Er) 600 mg PO BID VLADIMIR Last Admin: 02/01/25 08:17 Dose: 600 mg Loperamide HCl (Loperamide Hcl 2 Mg Capsule) 2 mg PO Q4H PRN PRN Reason: Diarrhea Last Admin: 02/01/25 15:39 Dose: 2 mg Lurasidone HCl (Lurasidone Hcl 80 Mg Tablet) 80 mg PO DAILY@1700 VLADIMIR Last Admin: 01/31/25 16:58 Dose: 80 mg Magnesium Hydroxide (Milk Of Magnesia 30 Ml Oral.Susp) 30 ml PO DAILY PRN PRN Reason: Constipation Metformin HCl (Metformin Hcl Er 500 Mg Tab.Er.24h) 1,000 mg PO BID VLADIMIR Last Admin: 02/01/25 08:18 Dose: 1,000 mg Methocarbamol (Methocarbamol 750 Mg Tablet) 750 mg PO TID PRN PRN Reason: LOW BAXK PAIN Last Admin: 01/22/25 17:58 Dose: 750 mg Nicotine Polacrilex (Nicotine Polacrilex 2 Mg Gum) 4 mg BUCCAL Q2H PRN PRN Reason: Nicotine Cravings Nystatin (Nystatin Powder 15 Gm Bottle) 1 appl TOPICAL BID VLADIMIR; Protocol Last Admin: 02/01/25 08:59 Dose: Not Given Olanzapine (Olanzapine 5 Mg Tablet) 5 mg PO BEDTIME VLADIMIR Prazosin HCl (Prazosin Hcl 5 Mg Capsule) 5 mg PO BEDTIME VLADIMIR; Protocol Last Admin: 01/31/25 20:01 Dose: 5 mg Trazodone HCl (Trazodone Hcl 100 Mg Tablet) 100 mg PO BEDTIME PRN PRN Reason: insomnia Last Admin: 01/31/25 22:30 Dose: 100 mg Trazodone HCl (Trazodone Hcl 100 Mg Tablet) 200 mg PO BEDTIME VLADIMIR Last Admin: 01/31/25 20:01 Dose: 200 mg Allergies Allergies Allergy/AdvReac Type Severity Reaction Status Date / Time sertraline [From Zoloft] Allergy Unknown Verified 12/14/24 16:10 Assessment & Plan Assessment & Plan (1) Bipolar I disorder with catatonia: Status: Acute Code(s): F31.9 - Bipolar disorder, unspecified; F06.1 - Catatonic disorder due to known physiological condition (2) New onset type 2 diabetes mellitus: Status: Acute Code(s): E11.9 - Type 2 diabetes mellitus without complications Plan 01/05: restart olanzapine at 5 mg QHS. continue ECT. plan to add an anti-depressant, as the present episode of catatonia appears to be related to a depressive episode. mood stabilizer later. 01/06: clearly psychotic today more than yesterday. increase HS olanzapine to 10 mg, continue ECT tomorrow, #9. 01/07: denies AH prior to ECT. much less HERNAN after ECT, notes his own hunger, observed zealously eating breakfast. continue current mgmt. ECT #10 sunday. 01/08: some AH today. poor sleep per pt, slept 8 hours per staff. ECT #10 tomorrow. DC CO, change to Q5 min checks. continue current mgmt otherwise. 01/09: ECT #10 completed. less HERNAN, more fluid, more affectively expressive. continue current mgmt. 01/10: continues to improve in terms of spontaneity, affective expression. memory continues impaired. continue current mgmt. 01/11: improvement continues. ECT #11 tomorrow. medical consult for wrist lesion. presumed fungal at the moment, will try nystatin powder rather than bacitracin, which has not been helpful. 01/12 ECT was canceled by Dr. Emmanuel given patient's memory issues. Staff reported patient doing better this past weekend, interacting with peers, but patient has only vague memory of it. Patient however agrees that he is eating better. Patient wants medication for bipolar depression; does not remember if he has ever been on lithium before, says his would know. Started on prazosin 1 mg since complaining of nightmare 01/13: ECT yesterday held due to memory issues. increase prazosin to 2 mg QHS for nightmares and olanzapine to 20 mg QHS for AH/insomnia. per lewis, continue ECT tomorrow with bifrontal placement. 01/14: ECT #11 today, changed to bifrontal and 0.25 program for less cognitive s/e. increase prazosin to 3 mg QHS for sleep, continue zyprexa 20 mg QHS as well. continues to have AH at night as well as insomnia. an additional 10 mg zyprexa PRN was added. 01/15: insomnia and AH throughout the night. increase HS zyprexa to 30. ECT tomorrow. otherwise continue current mgmt. 01/16: gains continue. memory improved. slept better last night. still AH once awake overnight, however. no nightmares. ECT #12 completed today. perhaps one more ECT next , then to focus on psychopharm prior to discharge. 01/17 continue current meds. will check cmp prior to starting lithium. hospitalist consult for sharp lower back pain. 01/18 continue tx. 01/19 CMP showed critical BS level of 497, no known DM, ordered A1c- 7.2%, elevation in LFTs AST 66, ALT 189, Alk phos 127. triglycerides very elevated at 1218 (not fasting and will repeat tomorrow morning, but still suspect will be very high), no signs of acute pancreatitis at this point, Cholesterol 287. given this metabolic findings, switching to different antipsychotic other than olanzapine makes most sense. lower olanzapine to 20mg po qhs, can start latuda 20mg po with dinner. Added lispro, POC QIDACH, metformin ER 1000mg po daily, consult to hospitalist. 01/20 Patient reports he is overall better but not sure if his medications are adequate so that he can remain stable; discussed with patient Dr. Kan's plan for medications and patient agrees to remain on the unit for continued ECT and further medication management (other considerations include Vraylar, Vraylar instead of Zyprexa, Wellbutrin, Lamictal...). Patient reports trouble sleeping. -regarding sign out, patient has been responding well to ECT and agrees he is doing better. -Patient currently on: Latuda 20 mg at dinnertime Zyprexa 20 mg q.h.s. And was started on lithium 300 mg b.i.d. 01/21 Patient reports he is doing the same, overall better. Still trouble sleeping. And agrees for medication adjustment. Patient had significantly elevated TAG, was started on fenofibrate; however lab was taken later in the day and on inquiry patient said he did eat breakfast right before lab; will repeat lipid panel and make sure it is fasting before concluding he needs to be on special diet/fenofibrate -review of past lipid panels show consistently only mildly elevated accept for few times when they were taken later in the day Continue Latuda 20 mg at dinnertime Continue Zyprexa 20 mg q.h.s. Switch to lithium ER 600 mg q.h.s. for 1 time dosing and possibly to help asleep Start clonidine 0.1 mg q.h.s. for insomnia Repeat lipid panel 01/22 same presentation TAG lower on fasting lab but still elevated increasing prazosin for nightmares 01/23 no nightmares; feels he's doing better 01/24: continue current management and treatment plan. 01/25: Continue current management and treatment plan. 01/26: sleeping well, no nightmares. mood OK. increase latuda to 40 mg daily and drop HS zyprexa to 10 mg QHS. check lithium level tonight. clarify outpt ECT plan. discharge next week likely. 01/27: MNA and nightmare last night after zyprexa decrease. increase lithium to 600 BID and prazosin to 5 mg QHS. 01/28: JEANNA and no nightmares last night. increase altaf latuda to 60 mg, continue other meds as they are. check lithium and labs sunday altaf, hold lithium sunday altaf for ECT sunday. 01/29: poor sleep again last night. start trazodone 100 QHS MR x 1. otherwise continue current mgmt. 01/30: poor sleep continues. increase trazodone to 200 mg QHS. otherwise continue current mgmt. case d/w pt's at pt's request. 01/31: poor sleep continues. increase evening latuda to 80 mg. check lithium level tomorrow night. sunday ECT, sunday discharge. 02/01: slept a bit better last night. decrease HS olanzapine to 5 mg. hold HS lithium, NPO p MN. ECT in the morning. labs tonight. Reason for continued inpatient stay Substantial Risk for: rapid decompensation Time Spent With Patient Time: Total time managing care of this patient today ____ minutes.
[2025-02-01] MEDS: Lurasidone HCl 80 MG TABLET PO (17:00)
[2025-02-01] MEDS: hydrOXYzine HCL 25 MG TABLET PO (17:30)
[2025-02-01 19:51] VITALS: BP 109/63; PULSE 95; RESP 16; TEMP 37.2; O2SAT 96
[2025-02-01 20:39] LABS: Glucose, Whole Blood 170 mg/dL (60-115)
[2025-02-01] MEDS: traZODone HCL 100 MG TABLET 200 MG PO (20:43)
[2025-02-01] MEDS: Prazosin HCL 5 MG CAPSULE PO (20:43)
[2025-02-01] MEDS: OLANZapine 5 MG TABLET PO (20:43)
[2025-02-01 20:47] LABS: Anion Gap 15 (12-20); Blood Urea Nitrogen 11 mg/dL (9-16); Calcium 9.5 mg/dL (8.4-10.2); Carbon Dioxide 21 mmol/L (22-29); Chloride 105 mmol/L (96-108); Creatinine Clr Calc Pharmacy 125.4; Estimated Glomerular Filt Rate > 60; Glucose Random 169 mg/dL (60-115); Potassium 3.8 mmol/L (3.3-5.1); Sodium 137 mmol/L (135-145)
[2025-02-02] VITALS (9 sets, daily range): BP systolic 109–136; BP diastolic 71–85; PULSE 83–919; RESP 16–20; TEMP 36.4–37.3; O2SAT 93–98
[2025-02-02] MEDS: hydrOXYzine HCL 25 MG TABLET PO ×2 (03:55→12:32)
[2025-02-02] MEDS: Lactated Ringers 1,000 ML 50 ML IVCONT (06:34)
--- NOTE | 2025-02-02 06:49 | HO.ANESPROP2 ---
[facility] Active Problems Active Problems: All Active Problems New onset type 2 diabetes mellitus (Acute) Acute hypokalemia (Acute) Bipolar I disorder with catatonia (Acute) Past Medical History Medical History Acute hypokalemia Sepsis Acute hypoxemic respiratory failure Pneumonia Toxic metabolic encephalopathy Bipolar I disorder with catatonia Family History Family history of problems with anesthesia: No Surgical History Surgical History (Updated 02/02/25 @ 06:15 by Brianne Salmeron, RN) History of appendectomy History of Problems with Anesthesia: No Social History Social History Household Members: Spouse and Children Household Members Other:: and 2 daughters Housing: House Do you presently have visiting nurse or other home services: No Unable to assess alcohol history related to: Unable to respond and Refusing to respond Patient Tobacco Use Status: Current everyday Tobacco user Tobacco use type: Cigarette Cigarette Packs Per Day: 1 Cigarettes Per Day: 20.0 e-Cigarette/Vaping Use: Former Use Second Hand Smoke Exposure: Yes (people smoking around him) service: No Sexual orientation: Straight/Heterosexual Meds Allergies Allergy/AdvReac Type Severity Reaction Status Date / Time sertraline [From Zoloft] Allergy Unknown Verified 02/02/25 06:16 Active Medications: Current Medications Acetaminophen (Acetaminophen 325 Mg Tablet) 650 mg PO Q6H PRN PRN Reason: Headache/Pain, Scale 1-10 Last Admin: 02/01/25 16:34 Dose: 650 mg Al Hydroxide/Mg Hydroxide (Magnesium Hydrox/Alum Hydrox 30 Ml Oral.Susp) 30 ml PO Q6H PRN PRN Reason: Heartburn/Nausea Fenofibrate (Fenofibrate 54 Mg Tablet) 54 mg PO DAILY VLADIMIR Last Admin: 02/01/25 08:18 Dose: 54 mg Hydrocortisone (Hydrocortisone 1 % Cream 28.35 Gm Tube) 1 appl TOPICAL BID PRN; Protocol PRN Reason: Rash Last Admin: 01/31/25 10:41 Dose: 1 appl Hydroxyzine HCl (Hydroxyzine Hcl 25 Mg Tablet) 25 mg PO Q6H PRN PRN Reason: mild anxiety Last Admin: 02/02/25 03:55 Dose: 25 mg Lactated Ringer's (Lr) 1,000 mls @ 50 mls/hr IVCONT .Q20H VLADIMIR Last Admin: 02/02/25 06:34 Dose: 50 mls/hr Insulin Human Lispro (Insulin Lispro 100 Unit/Ml 3 Ml Vial) 0 unit SUBCUT QIDACHS [facility]; Protocol Last Admin: 02/01/25 20:46 Dose: 2 unit [place] Carbonate ([place] Carbonate Er 300 Mg Tablet.Er) 600 mg PO BID [facility] Last Admin: 02/01/25 08:17 Dose: 600 mg Loperamide HCl (Loperamide Hcl 2 Mg Capsule) 2 mg PO Q4H PRN PRN Reason: Diarrhea Last Admin: 02/01/25 15:39 Dose: 2 mg Lurasidone HCl (Lurasidone Hcl 80 Mg Tablet) 80 mg PO DAILY@1700 [facility] Last Admin: 02/01/25 17:00 Dose: 80 mg Magnesium Hydroxide (Milk Of Magnesia 30 Ml Oral.Susp) 30 ml PO DAILY PRN PRN Reason: Constipation Metformin HCl (Metformin Hcl Er 500 Mg Tab.Er.24h) 1,000 mg PO BID [facility] Last Admin: 02/01/25 20:43 Dose: 1,000 mg Methocarbamol (Methocarbamol 750 Mg Tablet) 750 mg PO TID PRN PRN Reason: LOW BAXK PAIN Last Admin: 01/22/25 17:58 Dose: 750 mg Naloxone HCl (Naloxone Hcl 0.4 Mg/Ml Vial) 0.04 mg IVPUSH Q5M PRN PRN Reason: Excessive sedation or RR < 8 Naloxone HCl (Naloxone Hcl 0.4 Mg/Ml Vial) 0.04 mg IVPUSH Q5M PRN PRN Reason: Excessive sedation or RR < 8 Nicotine Polacrilex (Nicotine Polacrilex 2 Mg Gum) 4 mg BUCCAL Q2H PRN PRN Reason: Nicotine Cravings Nystatin (Nystatin Powder 15 Gm Bottle) 1 appl TOPICAL BID [facility]; Protocol Last Admin: 02/01/25 20:47 Dose: Not Given Olanzapine (Olanzapine 5 Mg Tablet) 5 mg PO BEDTIME [facility] Last Admin: 02/01/25 20:43 Dose: 5 mg Prazosin HCl (Prazosin Hcl 5 Mg Capsule) 5 mg PO BEDTIME [facility]; Protocol Last Admin: 02/01/25 20:43 Dose: 5 mg Trazodone HCl (Trazodone Hcl 100 Mg Tablet) 100 mg PO BEDTIME PRN PRN Reason: insomnia Last Admin: 01/31/25 22:30 Dose: 100 mg Trazodone HCl (Trazodone Hcl 100 Mg Tablet) 200 mg PO BEDTIME VLADIMIR Last Admin: 02/01/25 20:43 Dose: 200 mg Exam Height,Weight and Vital Signs: Height 6 ft 1 in Weight 91.172 kg Last Vital Signs Temp 97.7 F 02/02/25 06:19 Pulse 83 02/02/25 06:19 Resp 20 02/02/25 06:19 BP 119/84 02/02/25 06:19 Pulse Ox 96 02/02/25 06:19 O2 Del Method Room Air 02/02/25 06:19 O2 Flow Rate 2 01/23/25 08:09 Pertinent Lab Results Pertinent Lab Results: Laboratory Tests 01/19/25 01/19/25 01/19/25 11:31 12:43 16:55 Sodium 135 Potassium 4.2 Chloride 99 Carbon Dioxide 22 Anion Gap 18 BUN 17 H Creatinine 1.32 Estim Creat Clear Calc 87.4 Estimated GFR > 60 POC Glucose 320 H Random Glucose 497 H* Estimat Average Glucose 160 Hemoglobin A1c % 7.2 H Calcium 9.5 Total Bilirubin 0.3 AST 66 H ALT 189 H Alkaline Phosphatase 127 H Ammonia TNP Total Creatine Kinase Total Protein 7.4 Albumin 4.3 Triglycerides 1218 H Cholesterol 287 H LDL Cholesterol Direct LDL Cholesterol, Calc TNP HDL Cholesterol 42 TSH 0.90 [place] 01/19/25 01/20/25 01/20/25 20:14 07:37 09:52 Sodium Potassium Chloride Carbon Dioxide Anion Gap BUN Creatinine Estim Creat Clear Calc Estimated GFR POC Glucose 333 H 275 H Random Glucose Estimat Average Glucose Hemoglobin A1c % Calcium Total Bilirubin AST ALT Alkaline Phosphatase Ammonia Total Creatine Kinase 21 L Total Protein Albumin Triglycerides 792 H Cholesterol 277 H LDL Cholesterol Direct LDL Cholesterol, Calc TNP HDL Cholesterol 44 TSH [place] 01/20/25 01/20/25 01/20/25 11:52 16:49 20:15 Sodium Potassium Chloride Carbon Dioxide Anion Gap BUN Creatinine Estim Creat Clear Calc Estimated GFR POC Glucose 336 H 239 H 211 H Random Glucose Estimat Average Glucose Hemoglobin A1c % Calcium Total Bilirubin AST ALT Alkaline Phosphatase Ammonia Total Creatine Kinase Total Protein Albumin Triglycerides Cholesterol LDL Cholesterol Direct LDL Cholesterol, Calc HDL Cholesterol TSH [place] 01/21/25 01/21/25 01/21/25 07:40 11:41 16:47 Sodium Potassium Chloride Carbon Dioxide Anion Gap BUN Creatinine Estim Creat Clear Calc Estimated GFR POC Glucose 311 H 220 H 236 H Random Glucose Estimat Average Glucose Hemoglobin A1c % Calcium Total Bilirubin AST ALT Alkaline Phosphatase Ammonia Total Creatine Kinase Total Protein Albumin Triglycerides Cholesterol LDL Cholesterol Direct LDL Cholesterol, Calc HDL Cholesterol TSH [place] 01/21/25 01/22/25 01/22/25 21:01 07:32 07:41 Sodium Potassium Chloride Carbon Dioxide Anion Gap BUN Creatinine Estim Creat Clear Calc Estimated GFR POC Glucose 174 H 212 H Random Glucose Estimat Average Glucose Hemoglobin A1c % Calcium Total Bilirubin AST ALT Alkaline Phosphatase Ammonia Total Creatine Kinase Total Protein Albumin Triglycerides 487 H Cholesterol 262 H LDL Cholesterol Direct LDL Cholesterol, Calc TNP HDL Cholesterol 43 TSH [place] 01/22/25 01/22/25 01/22/25 09:20 12:01 16:46 Sodium Potassium Chloride Carbon Dioxide Anion Gap BUN Creatinine Estim Creat Clear Calc Estimated GFR POC Glucose 115 101 Random Glucose Estimat Average Glucose Hemoglobin A1c % Calcium Total Bilirubin AST ALT Alkaline Phosphatase Ammonia Total Creatine Kinase Total Protein Albumin Triglycerides Cholesterol LDL Cholesterol Direct 163 H LDL Cholesterol, Calc HDL Cholesterol TSH [place] 01/22/25 01/23/25 01/23/25 20:05 08:54 11:54 Sodium Potassium Chloride Carbon Dioxide Anion Gap BUN Creatinine Estim Creat Clear Calc Estimated GFR POC Glucose 230 H 187 H 194 H Random Glucose Estimat Average Glucose Hemoglobin A1c % Calcium Total Bilirubin AST ALT Alkaline Phosphatase Ammonia Total Creatine Kinase Total Protein Albumin Triglycerides Cholesterol LDL Cholesterol Direct LDL Cholesterol, Calc HDL Cholesterol TSH [place] 01/23/25 01/23/25 01/24/25 16:41 20:41 07:33 Sodium Potassium Chloride Carbon Dioxide Anion Gap BUN Creatinine Estim Creat Clear Calc Estimated GFR POC Glucose 107 201 H 202 H Random Glucose Estimat Average Glucose Hemoglobin A1c % Calcium Total Bilirubin AST ALT Alkaline Phosphatase Ammonia Total Creatine Kinase Total Protein Albumin Triglycerides Cholesterol LDL Cholesterol Direct LDL Cholesterol, Calc HDL Cholesterol TSH [place] 01/24/25 01/24/25 01/24/25 11:34 16:49 21:35 Sodium Potassium Chloride Carbon Dioxide Anion Gap BUN Creatinine Estim Creat Clear Calc Estimated GFR POC Glucose 213 H 191 H 147 H Random Glucose Estimat Average Glucose Hemoglobin A1c % Calcium Total Bilirubin AST ALT Alkaline Phosphatase Ammonia Total Creatine Kinase Total Protein Albumin Triglycerides Cholesterol LDL Cholesterol Direct LDL Cholesterol, Calc HDL Cholesterol TSH [place] 01/25/25 01/25/25 01/25/25 07:46 11:55 16:48 Sodium Potassium Chloride Carbon Dioxide Anion Gap BUN Creatinine Estim Creat Clear Calc Estimated GFR POC Glucose 142 H 130 H 142 H Random Glucose Estimat Average Glucose Hemoglobin A1c % Calcium Total Bilirubin AST ALT Alkaline Phosphatase Ammonia Total Creatine Kinase Total Protein Albumin Triglycerides Cholesterol LDL Cholesterol Direct LDL Cholesterol, Calc HDL Cholesterol TSH [place] 01/25/25 01/26/25 01/26/25 21:06 07:28 07:28 Sodium 141 Potassium 4.3 Chloride 104 Carbon Dioxide 24 Anion Gap 17 BUN 11 Creatinine 0.88 0.88 Estim Creat Clear Calc 131.1 Estimated GFR POC Glucose 180 H Random Glucose Estimat Average Glucose Hemoglobin A1c % Calcium Total Bilirubin AST ALT Alkaline Phosphatase Ammonia Total Creatine Kinase Total Protein Albumin Triglycerides Cholesterol LDL Cholesterol Direct LDL Cholesterol, Calc HDL Cholesterol TSH [place] 01/26/25 01/26/25 01/26/25 07:28 07:28 07:32 Sodium Potassium Chloride Carbon Dioxide Anion Gap BUN Creatinine Estim Creat Clear Calc 131.1 Estimated GFR > 60 > 60 POC Glucose 144 H Random Glucose 131 H Estimat Average Glucose Hemoglobin A1c % Calcium 10.0 Total Bilirubin AST ALT Alkaline Phosphatase Ammonia Total Creatine Kinase Total Protein Albumin Triglycerides Cholesterol LDL Cholesterol Direct LDL Cholesterol, Calc HDL Cholesterol TSH 1.49 [place] 0.50 L 01/26/25 01/26/25 01/26/25 11:57 16:46 20:59 Sodium 139 Potassium 3.9 Chloride 104 Carbon Dioxide 23 Anion Gap 16 BUN 12 Creatinine 0.87 Estim Creat Clear Calc 132.6 Estimated GFR > 60 POC Glucose 91 135 H Random Glucose 132 H Estimat Average Glucose Hemoglobin A1c % Calcium 9.8 Total Bilirubin AST ALT Alkaline Phosphatase Ammonia Total Creatine Kinase Total Protein Albumin Triglycerides Cholesterol LDL Cholesterol Direct LDL Cholesterol, Calc HDL Cholesterol TSH [place] 0.26 L 01/26/25 01/27/25 01/27/25 21:09 07:37 12:18 Sodium Potassium Chloride Carbon Dioxide Anion Gap BUN Creatinine Estim Creat Clear Calc Estimated GFR POC Glucose 127 H 182 H 159 H Random Glucose Estimat Average Glucose Hemoglobin A1c % Calcium Total Bilirubin AST ALT Alkaline Phosphatase Ammonia Total Creatine Kinase Total Protein Albumin Triglycerides Cholesterol LDL Cholesterol Direct LDL Cholesterol, Calc HDL Cholesterol TSH [place] 01/27/25 01/27/25 01/28/25 16:47 20:07 07:22 Sodium Potassium Chloride Carbon Dioxide Anion Gap BUN Creatinine Estim Creat Clear Calc Estimated GFR POC Glucose 104 183 H 140 H Random Glucose Estimat Average Glucose Hemoglobin A1c % Calcium Total Bilirubin AST ALT Alkaline Phosphatase Ammonia Total Creatine Kinase Total Protein Albumin Triglycerides Cholesterol LDL Cholesterol Direct LDL Cholesterol, Calc HDL Cholesterol TSH [place] 01/28/25 01/28/25 01/28/25 11:49 16:36 20:25 Sodium Potassium Chloride Carbon Dioxide Anion Gap BUN Creatinine Estim Creat Clear Calc Estimated GFR POC Glucose 105 116 H 156 H Random Glucose Estimat Average Glucose Hemoglobin A1c % Calcium Total Bilirubin AST ALT Alkaline Phosphatase Ammonia Total Creatine Kinase Total Protein Albumin Triglycerides Cholesterol LDL Cholesterol Direct LDL Cholesterol, Calc HDL Cholesterol TSH [place] 01/29/25 01/29/25 01/29/25 07:35 11:36 16:41 Sodium Potassium Chloride Carbon Dioxide Anion Gap BUN Creatinine Estim Creat Clear Calc Estimated GFR POC Glucose 129 H 95 113 Random Glucose Estimat Average Glucose Hemoglobin A1c % Calcium Total Bilirubin AST ALT Alkaline Phosphatase Ammonia Total Creatine Kinase Total Protein Albumin Triglycerides Cholesterol LDL Cholesterol Direct LDL Cholesterol, Calc HDL Cholesterol TSH [place] 01/29/25 01/30/25 01/30/25 20:27 07:47 11:56 Sodium Potassium Chloride Carbon Dioxide Anion Gap BUN Creatinine Estim Creat Clear Calc Estimated GFR POC Glucose 174 H 115 89 Random Glucose Estimat Average Glucose Hemoglobin A1c % Calcium Total Bilirubin AST ALT Alkaline Phosphatase Ammonia Total Creatine Kinase Total Protein Albumin Triglycerides Cholesterol LDL Cholesterol Direct LDL Cholesterol, Calc HDL Cholesterol TSH [place] 01/30/25 01/30/25 01/31/25 16:46 20:42 07:51 Sodium Potassium Chloride Carbon Dioxide Anion Gap BUN Creatinine Estim Creat Clear Calc Estimated GFR POC Glucose 125 H 166 H 103 Random Glucose Estimat Average Glucose Hemoglobin A1c % Calcium Total Bilirubin AST ALT Alkaline Phosphatase Ammonia Total Creatine Kinase Total Protein Albumin Triglycerides Cholesterol LDL Cholesterol Direct LDL Cholesterol, Calc HDL Cholesterol TSH [place] 01/31/25 01/31/25 01/31/25 11:40 16:40 19:29 Sodium Potassium Chloride Carbon Dioxide Anion Gap BUN Creatinine Estim Creat Clear Calc Estimated GFR POC Glucose 95 119 H 198 H Random Glucose Estimat Average Glucose Hemoglobin A1c % Calcium Total Bilirubin AST ALT Alkaline Phosphatase Ammonia Total Creatine Kinase Total Protein Albumin Triglycerides Cholesterol LDL Cholesterol Direct LDL Cholesterol, Calc HDL Cholesterol TSH [place] 02/01/25 02/01/25 02/01/25 07:56 11:34 16:46 Sodium Potassium Chloride Carbon Dioxide Anion Gap BUN Creatinine Estim Creat Clear Calc Estimated GFR POC Glucose 201 H 94 93 Random Glucose Estimat Average Glucose Hemoglobin A1c % Calcium Total Bilirubin AST ALT Alkaline Phosphatase Ammonia Total Creatine Kinase Total Protein Albumin Triglycerides Cholesterol LDL Cholesterol Direct LDL Cholesterol, Calc HDL Cholesterol TSH [place] 02/01/25 02/01/25 20:24 20:35 Sodium 137 Potassium 3.8 Chloride 105 Carbon Dioxide 21 L Anion Gap 15 BUN 11 Creatinine 0.92 Estim Creat Clear Calc 125.4 Estimated GFR > 60 POC Glucose 170 H Random Glucose 169 H Estimat Average Glucose Hemoglobin A1c % Calcium 9.5 Total Bilirubin AST ALT Alkaline Phosphatase Ammonia Total Creatine Kinase Total Protein Albumin Triglycerides Cholesterol LDL Cholesterol Direct LDL Cholesterol, Calc HDL Cholesterol TSH [place] 0.70 Assessment and Plan Assessment Anesthesia Assessment: Anesthesia Plan Discussed and Chart Reviewed Final Anesthetic Review Family History of Problems with Anesthesia: No History of Problems with Anesthesia: No NPO: Yes ASA Class: III Final Preanesthetic Review: No Changes in Pt Med Stat, Meds/Allgs Chart Reviewed and Consent Obtained/Reviewed Patient Risk: Intermediate Procedure Risk: Intermediate Anesthetic Plan Anesthetic Plan: GA Disposition: Standard PACU
--- NOTE | 2025-02-02 06:56 | MHC.SHP ---
Pre-Procedural Eval Section A - 24 Hr Update-Section A only Date of Service: 02/02/25 The patient is an INPATIENT: Yes Changes since office visit: Yes Patient answered all questions; No Cold of Flu in the past 2 weeks, No New Medical Problems and No Changes in Medication The patient has been examined within 24 hours of the surgical procedure. The History & Physical has been completed within 30 days and I have reviewed it.: Yes Section B - Complete if H&P > 30 days Chief Complaint: Catatonia Allergies: Allergies Allergy/AdvReac Type Severity Reaction Status Date / Time sertraline [From Zoloft] Allergy Unknown Verified 02/02/25 06:16 Plan I have reviewed the history and physical and performed a pertinent physical examination on my patient. No changes have occurred unless specified. Time Spent With Patient Time: Total time managing care of this patient today __30__ minutes.
--- NOTE | 2025-02-02 07:59 | HO.ECTPROC ---
ECT Procedure Note Diagnosis/Treatment Date of Service: 02/02/25 Interval Clinical Notes: reports no interval changes in clinical status Time: Total time managing care of this patient today __30__ minutes. ECT Settings Device: THYMATRON DGx Electrode Placement: Bifrontal Program/Pulse Width: 0.25 Energy Percent: 100 Seizure Duration By EEG (in seconds): 34 Medications Administration General Anesthetic: Etomidate (14) Muscle Relaxant: Succinylcholine (140) Ancillary Medications Cardiovascular Medications: Labetolol (10) Airway Management Airway Management: Bag Mask Ventilation Treatment Recommendations No Changes Recommended: No change (RTC 02/25 for ECT) Notes: RTC 02/25 for next maintenance ECT
[2025-02-02 08:10] LABS: Glucose, Whole Blood 131 mg/dL (60-115)
[2025-02-02] MEDS: Lithium Carbonate ER 300 MG TABLET.ER 600 MG PO ×2 (08:26→20:15)
[2025-02-02] MEDS: metFORMIN HCl ER 500 MG TAB.ER.24H 1000 MG PO ×2 (08:26→20:16)
[2025-02-02] MEDS: Fenofibrate 54 MG TABLET PO (08:26)
[2025-02-02] MEDS: Acetaminophen 325 MG TABLET 650 MG PO ×2 (08:28→20:16)
[2025-02-02] MEDS: methocarbamoL 750 MG TABLET PO ×3 (11:18→17:46)
--- NOTE | 2025-02-02 11:29 | P.DS_ITS ---
DS: Providers Provider Date of Service: 02/02/25 Date of admission: 01/05/25 12:46 Date of discharge: 02/03/25 Primary care physician: Unknown Physician DS: Diagnosis Discharge Diagnosis (1) Bipolar I disorder with catatonia: Status: Acute (2) New onset type 2 diabetes mellitus: Status: Acute DS: Medications Discharge Medications Home Medications: Previous Rx's ?Medication ?Instructions ?Recorded fenofibrate 54 mg tablet 54 mg PO DAILY 30 days #30 tabs 02/02/25 hydroxyzine HCl 25 mg tablet 25 mg PO TID PRN mild anxiety 30 02/02/25 days #90 tabs lithium carbonate 300 mg 600 mg (2 x 300 mg) PO BID 30 days 02/02/25 tablet,extended release #120 tabs lurasidone 80 mg tablet (Latuda) 80 mg PO DAILY@1700 30 days #30 02/02/25 tabs metformin 500 mg tablet,extended 1,000 mg (2 x 500 mg) PO BID 30 02/02/25 release 24 hr days #120 tabs prazosin 5 mg capsule 5 mg PO BEDTIME 30 days #30 caps 02/02/25 trazodone 100 mg tablet See Rx Instructions .Route 02/02/25 .COMPLEX 30 days #90 tabs Mental Status Exam Mental Status Exam Narrative: Appearance: casually groomed, good hygiene, in NAD behavior: cooperative Psychomotor: no agitation or retardation noted Speech: no latency; clear, normal rate/rhythm/volume, spontaneous TP: linear TC:hoping to go home soon Mood: i'm pretty well relaxed. Affect: congruent SI: none HI: none VH/AH: denies Delusions: no delusional content reported or noted Insight/judgment: fair Memory/cog: alert, oriented x 4. Data Data Completed and Pending Completed studies during hospitalization [Text1]: 01/26/25 01/26/25 01/26/25 11:57 16:46 20:59 Sodium 139 Potassium 3.9 Chloride 104 Carbon Dioxide 23 Anion Gap 16 BUN 12 Creatinine 0.87 Estim Creat Clear Calc 132.6 Estimated GFR > 60 POC Glucose 91 135 H Random Glucose 132 H Calcium 9.8 [place] 0.26 L 01/26/25 01/27/25 01/27/25 21:09 07:37 12:18 Sodium Potassium Chloride Carbon Dioxide Anion Gap BUN Creatinine Estim Creat Clear Calc Estimated GFR POC Glucose 127 H 182 H 159 H Random Glucose Calcium [place] 01/27/25 01/27/25 01/28/25 16:47 20:07 07:22 Sodium Potassium Chloride Carbon Dioxide Anion Gap BUN Creatinine Estim Creat Clear Calc Estimated GFR POC Glucose 104 183 H 140 H Random Glucose Calcium [place] 01/28/25 01/28/25 01/28/25 11:49 16:36 20:25 Sodium Potassium Chloride Carbon Dioxide Anion Gap BUN Creatinine Estim Creat Clear Calc Estimated GFR POC Glucose 105 116 H 156 H Random Glucose Calcium [place] 01/29/25 01/29/25 01/29/25 07:35 11:36 16:41 Sodium Potassium Chloride Carbon Dioxide Anion Gap BUN Creatinine Estim Creat Clear Calc Estimated GFR POC Glucose 129 H 95 113 Random Glucose Calcium [place] 01/29/25 01/30/25 01/30/25 20:27 07:47 11:56 Sodium Potassium Chloride Carbon Dioxide Anion Gap BUN Creatinine Estim Creat Clear Calc Estimated GFR POC Glucose 174 H 115 89 Random Glucose Calcium [place] 01/30/25 01/30/25 01/31/25 16:46 20:42 07:51 Sodium Potassium Chloride Carbon Dioxide Anion Gap BUN Creatinine Estim Creat Clear Calc Estimated GFR POC Glucose 125 H 166 H 103 Random Glucose Calcium [place] 01/31/25 01/31/25 01/31/25 11:40 16:40 19:29 Sodium Potassium Chloride Carbon Dioxide Anion Gap BUN Creatinine Estim Creat Clear Calc Estimated GFR POC Glucose 95 119 H 198 H Random Glucose Calcium [place] 02/01/25 02/01/25 02/01/25 07:56 11:34 16:46 Sodium Potassium Chloride Carbon Dioxide Anion Gap BUN Creatinine Estim Creat Clear Calc Estimated GFR POC Glucose 201 H 94 93 Random Glucose Calcium [place] 02/01/25 02/01/25 02/02/25 20:24 20:35 08:05 Sodium 137 Potassium 3.8 Chloride 105 Carbon Dioxide 21 L Anion Gap 15 BUN 11 Creatinine 0.92 Estim Creat Clear Calc 125.4 Estimated GFR > 60 POC Glucose 170 H 131 H Random Glucose 169 H Calcium 9.5 [place] 0.70 DS: Summary Hospital Course Hospital Course: per 01/05 admission note: HPI Narrative: pt initially referred from [facility] due to catatonia, which they were unable to address. pt arrived essentially non-verbal, tracking with his eyes. he was admitted to the medical floor as he was not taking PO food, fluid, or medication, ultimately. he began ECT treatments from the medical floor. after 8 treatments, he began to speak again and was able to tolerate PO nutrition. parenteral nutrition was removed and pt was referred to psych floor for continued mgmt. per collateral from pt's , pt's PCP, who had been prescribing psych regimen, some weeks ago and pt was unable to continue his medications. once off medication, his already very tenuous position deteriorated rapidly. reported pt has recently appeared inordinately sleepy and difficult to rouse once asleep. he would barely have the energy to get up, go to work, and come home. he would then go to sleep nearly immediately. she reports his being withdrawn most of the past year, with little interest in mery out to see family and friends. she reported historical medications regimen as: propranolol 20 mg TID seroquel 200 mg TID lamictal 100 mg BID olanzapine 30 mg QHS ativan 1 mg BID on interview with MD on psych unit, pt was experiencing PMR and verbal HERNAN, but he was able to talk and follow commands. he denied SI/HI/VH, but he did endorse AH of get that, and you don't need that being given as examples. he reported he has also seen VH since being admitted to the hospital, but none very recently. he endorsed depression leading into the present hospitalization. he was open to restarting a low dose of anti-psychotic and adding anti-depressant and mood stabilizer down the road. he agreed to continue ECT as well. Past Psychiatric History: hosps: [facility] for 3 days prior to transfer to [facility] for catatonia[facility] for manic episode. Past medication trials: olanzapine, ativan 2mg/daily Medical Evaluation Reviewed: Yes [facility] Medical History Bipolar I disorder with catatonia Family History: unknown Social History: with two children, daughters 8 and 10, lives in [place], [place] with his family. was working a job for 10 years until having a manic episode about 6 years ago. since then he has been able to work jobs for only about a year at a time, with significant depressive morbidity. recently quit a job at [employer] at the end of november after having worked there for about a year. Substance History: per , pt does not use substances Trauma History: unknown Precis: 01/05: restart olanzapine at 5 mg QHS. continue ECT. plan to add an anti- depressant, as the present episode of catatonia appears to be related to a depressive episode. mood stabilizer later. 01/06: clearly psychotic today more than yesterday. increase HS olanzapine to 10 mg, continue ECT tomorrow, #9. 01/07: denies AH prior to ECT. much less HERNAN after ECT, notes his own hunger, observed zealously eating breakfast. continue current mgmt. ECT #10 sunday. 01/08: some AH today. poor sleep per pt, slept 8 hours per staff. ECT #10 tomorrow. DC CO, change to Q5 min checks. continue current mgmt otherwise. 01/09: ECT #10 completed. less HERNAN, more fluid, more affectively expressive. continue current mgmt. 01/10: continues to improve in terms of spontaneity, affective expression. memory continues impaired. continue current mgmt. 01/11: improvement continues. ECT #11 tomorrow. medical consult for wrist lesion. presumed fungal at the moment, will try nystatin powder rather than bacitracin, which has not been helpful. 01/12 ECT was canceled by Dr. Emmanuel given patient's memory issues. Staff reported patient doing better this past weekend, interacting with peers, but patient has only vague memory of it. Patient however agrees that he is eating better. Patient wants medication for bipolar depression; does not remember if he has ever been on lithium before, says his would know. Started on prazosin 1 mg since complaining of nightmare 01/13: ECT yesterday held due to memory issues. increase prazosin to 2 mg QHS for nightmares and olanzapine to 20 mg QHS for AH/insomnia. per lewis, continue ECT tomorrow with bifrontal placement. 01/14: ECT #11 today, changed to bifrontal and 0.25 program for less cognitive s/e. increase prazosin to 3 mg QHS for sleep, continue zyprexa 20 mg QHS as well. continues to have AH at night as well as insomnia. an additional 10 mg zyprexa PRN was added. 01/15: insomnia and AH throughout the night. increase HS zyprexa to 30. ECT tomorrow. otherwise continue current mgmt. 01/16: gains continue. memory improved. slept better last night. still AH once awake overnight, however. no nightmares. ECT #12 completed today. perhaps one more ECT next , then to focus on psychopharm prior to discharge. 01/17 continue current meds. will check cmp prior to starting lithium. hospitalist consult for sharp lower back pain. 01/18 continue tx. 01/19 CMP showed critical BS level of 497, no known DM, ordered A1c- 7.2%, elevation in LFTs AST 66, ALT 189, Alk phos 127. triglycerides very elevated at 1218 (not fasting and will repeat tomorrow morning, but still suspect will be very high), no signs of acute pancreatitis at this point, Cholesterol 287. given this metabolic findings, switching to different antipsychotic other than olanzapine makes most sense. lower olanzapine to 20mg po qhs, can start latuda 20mg po with dinner. Added lispro, POC QIDACH, metformin ER 1000mg po daily, consult to hospitalist. 01/20 Patient reports he is overall better but not sure if his medications are adequate so that he can remain stable; discussed with patient Dr. Kan's plan for medications and patient agrees to remain on the unit for continued ECT and further medication management (other considerations include Vraylar, Vraylar instead of Zyprexa, Wellbutrin, Lamictal...). Patient reports trouble sleeping. -regarding sign out, patient has been responding well to ECT and agrees he is doing better. -Patient currently on: Latuda 20 mg at dinnertime Zyprexa 20 mg q.h.s. And was started on lithium 300 mg b.i.d. 01/21 Patient reports he is doing the same, overall better. Still trouble sleeping. And agrees for medication adjustment. Patient had significantly elevated TG, was started on fenofibrate; however lab was taken later in the day and on inquiry patient said he did eat breakfast right before lab; will repeat lipid panel and make sure it is fasting before concluding he needs to be on special diet/fenofibrate -review of past lipid panels show consistently only mildly elevated accept for few times when they were taken later in the day Continue Latuda 20 mg at dinnertime Continue Zyprexa 20 mg q.h.s. Switch to lithium ER 600 mg q.h.s. for 1 time dosing and possibly to help asleep Start clonidine 0.1 mg q.h.s. for insomnia Repeat lipid panel 01/22 same presentation TG lower on fasting lab but still elevated increasing prazosin for nightmares 01/23 no nightmares; feels he's doing better 01/24: continue current management and treatment plan. 01/25: Continue current management and treatment plan. 01/26: sleeping well, no nightmares. mood OK. increase latuda to 40 mg daily and drop HS zyprexa to 10 mg QHS. check lithium level tonight. clarify outpt ECT plan. discharge next week likely. 01/27: MNA and nightmare last night after zyprexa decrease. increase lithium to 600 BID and prazosin to 5 mg QHS. 01/28: JEANNA and no nightmares last night. increase altaf latuda to 60 mg, continue other meds as they are. check lithium and labs sunday altaf, hold lithium sunday altaf for ECT sunday. 01/29: poor sleep again last night. start trazodone 100 QHS MR x 1. otherwise continue current mgmt. 01/30: poor sleep continues. increase trazodone to 200 mg QHS. otherwise continue current mgmt. case d/w pt's at pt's request. 01/31: poor sleep continues. increase evening latuda to 80 mg. check lithium level tomorrow night. sunday ECT, sunday discharge. 02/01: slept a bit better last night. decrease HS olanzapine to 5 mg. hold HS lithium, NPO p MN. ECT in the morning. labs tonight. 02/02: continues well. labs reviewed. meds reviewed, reconciled, prescribed. ECT #13 completed without complication. return 02/25 for another ECT. lithium 0.70, renal fxn good. continue current mgmt. 02/03: stable overnight. discharged to outpt F/U as per plan. Time Spent with Patient Time attestation: Total time managing care of this patient today __35__ minutes. Discharge Plan Discharge Anticipated Discharge Date/Time: 02/03/25 11:00 Patient Disposition: Home, Self-Care Discharge Diagnosis: Bipolar I Disorder with Catatonia Diabetes Mellitus Referrals: Ellen Duval ([employer] SUPERVISOR) [Other] - 02/05/25 10:00 am (Intake appointment You will be given a psychiatry appointment during this appointment. ) Stefanie Education Program Specialist for [facility] [Other] - 1 Week (Please follow up with Stefanie from [facility] following discharge. ) [facility] [Provider Group] - 1 Week (Walk in hours Sunday through Sunday 8-430. This is an alternative if you have trouble getting your new pcp.) Discharge Medications: New lithium carbonate 300 mg Tablet Extended Release 600 mg PO BID 30 Days Qty: 120 0RF prazosin 5 mg Capsule 5 mg PO BEDTIME 30 Days Qty: 30 0RF Protocol: Hold for SBP< HOLD for SBP < : 90 trazodone 100 mg Tablet See Rx Instructions .ROUTE .COMPLEX 30 Days Qty: 90 0RF Rx Instructions: take 2 tabs (200 mg) at bedtime. take an additional 1 tab (100 mg) at bedtime as needed for insomnia. hydroxyzine HCl 25 mg Tablet 25 mg PO TID PRN (Reason: mild anxiety) 30 Days Qty: 90 0RF fenofibrate 54 mg Tablet 54 mg PO DAILY 30 Days Qty: 30 0RF lurasidone [Latuda] 80 mg Tablet 80 mg PO DAILY@1700 30 Days Qty: 30 0RF metformin 500 mg Tablet Extended Release 24 Hr 1,000 mg PO BID 30 Days Qty: 120 0RF (DME) FreeStyle Lite Strips Strip Qty: 100 0RF Rx Instructions: Test 3 times a day or as directed. (DME) blood-glucose meter [FreeStyle Lite Meter] Kit Qty: 1 0RF Rx Instructions: As Directed 3 times a day alcohol swabs Pads, Medicated 1 pad TOPICAL QD-TID Qty: 100 0RF Rx Instructions: Use four times a day or as directed. (DME) lancets [FreeStyle Lancets] 28 gauge misc Qty: 100 0RF Rx Instructions: Test 3 times a day or as directed. Discharge Orders: Discharge Order (Routine); Ordered 02/03/25 Ordered By: Luis Kan Diet: Diabetic diet Activity on Discharge: As tolerated Stand Alone Forms: Patient Portal Discharge page, Community Support Print Language: Unable To Collect Care Plan Goals: remain safe and stable in the outpatient treatment setting Health Concerns: Diabetes Mellitus Hyperlipidemia Plan of Treatment: take medications as prescribed, attend appointments as scheduled Assessment: not at imminent risk of harm to self or others Discharge Date/Time: 02/03/25 10:48
[2025-02-02 12:04] LABS: Glucose, Whole Blood 108 mg/dL (60-115)
[2025-02-02 16:52] LABS: Glucose, Whole Blood 94 mg/dL (60-115)
[2025-02-02] MEDS: Lurasidone HCl 80 MG TABLET PO (17:26)
[2025-02-02 20:11] LABS: Glucose, Whole Blood 181 mg/dL (60-115)
[2025-02-02] MEDS: Prazosin HCL 5 MG CAPSULE PO (20:16)
[2025-02-02] MEDS: traZODone HCL 100 MG TABLET 200 MG PO (20:16)
[2025-02-02] MEDS: Insulin Lispro 100 UNIT/ML 3 ML VIAL SUBCUT (20:17)
[2025-02-03 07:20] VITALS: BP 115/66; PULSE 87; RESP 16; TEMP 36.8; O2SAT 95
[2025-02-03 07:38] LABS: Glucose, Whole Blood 118 mg/dL (60-115)
[2025-02-03] MEDS: Lithium Carbonate ER 300 MG TABLET.ER 600 MG PO (08:29)
[2025-02-03] MEDS: metFORMIN HCl ER 500 MG TAB.ER.24H 1000 MG PO (08:29)
[2025-02-03] MEDS: Fenofibrate 54 MG TABLET PO (08:30)
[2025-02-03] MEDS: Hydrocortisone 1 % Cream 28.35 GM TUBE 1 APPL TOPICAL (09:32)
== END 2025-02-03 10:48 | disposition home or self-care (01) | DRG 753 ==
PROVIDERS: Physician Assistant; Psychiatry & Neurology Psychiatry; Social Worker; Admitting Provider Psychiatry & Neurology Psychiatry; Visit Provider Psychiatry & Neurology Psychiatry
PROC: GZB4ZZZ Other Electroconvulsive Therapy (ICD-10-PCS; CPT 90870; principal; 2025-01-07 08:00)
PROC: (CPT 90870; principal; 2025-02-02 08:00)
DX: F31.9 Bipolar disorder, unspecified (principal); F06.1 Catatonic disorder due to known physiological condition; L25.9 Unspecified contact dermatitis, unspecified cause; B36.9 Superficial mycosis, unspecified; E11.9 Type 2 diabetes mellitus without complications; F17.210 Nicotine dependence, cigarettes, uncomplicated; Z71.6 Tobacco abuse counseling; Z79.899 Other long term (current) drug therapy
CPT/HCPCS: 36415; 80048; 80053; 80061; 80178; 82140; 82550; 82565; 82947; 83036; 83721; 84443; 90870; 97161; J0330; J1596; J1805; J1920; J2060; J2704; J3360; J7120

== ENCOUNTER → 2025-01-05 12:46 | Outpatient (BNV) | payer OTHER, SELFPAY | PROVIDERS: Admitting Provider Psychiatry & Neurology Psychiatry; Visit Provider Psychiatry & Neurology Psychiatry | DX: F31.9 Bipolar disorder, unspecified (principal); F06.1 Catatonic disorder due to known physiological condition | CPT/HCPCS: 90870 ==

== ENCOUNTER → 2025-01-05 12:46 | Outpatient (BNV) | payer OTHER, SELFPAY | PROVIDERS: Admitting Provider Psychiatry & Neurology Psychiatry; Visit Provider Psychiatry & Neurology Psychiatry | DX: F31.9 Bipolar disorder, unspecified (principal); F06.1 Catatonic disorder due to known physiological condition | CPT/HCPCS: 90792; 90870; 99231; 99232; 99233 ==

== ENCOUNTER 2025-02-25 05:58 | Day surgery (SDC) | payer OTHER, SELFPAY ==
--- OUTSIDE RECORDS SUMMARY | 2025-02-10 14:42 | XMS_ITS | Referral Summary ---
Author Organization [facility] Address [address] [place] [address] Care Team Providers Care Bevel Mill Operator Name Role Phone CadenFred DO Primary Care Provider [phone] Encounters * This document contains information received from the source organization and may not represent a complete record from that organization. Date Type Department Care Team Description 12/03/2024 Telephone [facility] [address] [facility] [address] [place] [id number] No, Pcp [facility] Other 11/26/2024 Patient Outreach [facility] [address] [place] [address] Ayana Plunkett from Last 3 Months Medications [...] Plan of Treatment Not on file Insurance [facility] MEDICAID Care Teams Bevel Mill Operator Relationship Specialty Start Date End Date Fred Negrete DO [address] [place] [id number] PCP - General 11/20/24
--- OUTSIDE RECORDS SUMMARY | 2025-02-10 14:42 | XMS_ITS | Continuity of Care Document ---
Author Organization [facility] Address [address] [place] [address] [address] [place], [place] Phone [phone] Care Team Providers Care Supervisor [place] Name Role Phone Latha Mahajan NP Care Team Information Concrete Handler U navailable BALJEET MOTLEY M.D. Care Team Information Rec eiver Unavailable Latha Mahajan NP Primary Care Physician Unavailab le Social History Type Date Description Comments Sex Unknown
--- OUTSIDE RECORDS SUMMARY | 2025-02-10 14:42 | XMS_ITS | Clinical Summary ---
Author Organization [facility] Address [address] [place] [address] Care Team Providers Care Refund Clerk Name Role Phone CadenFred Primary Care Provider [phone] Medications * This document contains information received [...] [facility] [address] [place] [address] No, Pcp [facility] Other 11/26/2024 Patient Outreach [facility] [address] [place] [address] Ayana Plunkett from Last 3 Months Family [...] series) 2063 Insurance [employer] MEDICAID Care Teams Refund Clerk Relationship Specialty Start Date End Date Fred Negrete DO [address] [place] [phone] PCP - General 11/20/24
[2025-02-25] VITALS (9 sets, daily range): BP systolic 99–137; BP diastolic 59–91; PULSE 85–110; RESP 16–30; TEMP 36.6–36.9; O2SAT 94–99; BMI 26.1
--- NOTE | 2025-02-25 07:01 | MHC.SHP ---
Pre-Procedural Eval Section A - 24 Hr Update-Section A only Date of Service: 02/25/25 Section B - Complete if H&P > 30 days Chief Complaint: Major depressive disorder, recurrent, severe with Allergies: Allergies Allergy/AdvReac Type Severity Reaction Status Date / Time sertraline [From Zoloft] Allergy Unknown Verified 02/02/25 06:16 Review of Systems Sugical H&P ROS: Negative: Constitution, Cardiovascular, Respiratory, Neurological and Psychiatric Exam Surgical H&P Exam: Normal: Heart, Normal: Lungs and Normal: Neurological Plan Diagnosis/Plan: Unchanged I have reviewed the history and physical and performed a pertinent physical examination on my patient. No changes have occurred unless specified. Time Spent With Patient Time: Total time managing care of this patient today ____ minutes.
--- NOTE | 2025-02-25 07:14 | HO.ECTPROC ---
ECT Procedure Note Diagnosis/Treatment Date of Service: 02/25/25 Diagnosis: Bipolar disorder Previous ECT Date: 02/02/25 Interval Clinical Notes: reports no interval changes in clinical status Time: Total time managing care of this patient today ____ minutes. ECT Settings Device: THYMATRON DGx Electrode Placement: Bifrontal Program/Pulse Width: 0.25 Energy Percent: 100 Seizure Duration By EEG (in seconds): 34 Medications Administration General Anesthetic: Etomidate (14) Muscle Relaxant: Succinylcholine (140) Ancillary Medications Cardiovascular Medications: Labetolol (10) Airway Management Airway Management: Bag Mask Ventilation Treatment Recommendations No Changes Recommended: No change (RTC 02/25 for ECT) Notes: RTC 02/25 for next maintenance ECT
--- NOTE | 2025-02-25 07:15 | P.CONAN_ITS ---
[facility] Active Problems Active Problems: All Active Problems Diabetes (Acute) New onset type 2 diabetes mellitus (Acute) Acute hypokalemia (Acute) Bipolar I disorder with catatonia (Acute) Past Medical History Medical History (Updated 02/11/25 @ 00:01 by Tristian Blanca) Acute hypokalemia Sepsis Acute hypoxemic respiratory failure Pneumonia Toxic metabolic encephalopathy Bipolar I disorder with catatonia Family History Family history of problems with anesthesia: No Surgical History Surgical History (Updated 02/02/25 @ 06:15 by Brianne Salmeron RN) History of appendectomy History of Problems with Anesthesia: No Social History Social History Household Members: Spouse and Children Household Members Other:: and 2 daughters Housing: House Do you presently have visiting nurse or other home services: No Unable to assess alcohol history related to: Unable to respond and Refusing to respond Patient Tobacco Use Status: Current everyday Tobacco user Tobacco use type: Cigarette Cigarette Packs Per Day: 1 Cigarettes Per Day: 20.0 e-Cigarette/Vaping Use: Former Use Second Hand Smoke Exposure: Yes (people smoking around him) Advance Directives: No Advance Directives Information Provided: Yes service: No Sexual orientation: Straight/Heterosexual Meds Allergies Allergy/AdvReac Type Severity Reaction Status Date / Time sertraline [From Zoloft] Allergy Unknown Verified 02/02/25 06:16 Home Medications ?Medication ?Instructions ?Recorded ?Confirmed ?Last Taken ?Type Jardiance 10 mg PO DAILY 02/25/25 02/25/25 Unknown History Exam Height,Weight and Vital Signs: Height 6 ft 1 in Weight 89.811 kg Last Vital Signs Temp 98 F 02/25/25 06:52 Pulse 85 02/25/25 06:52 Resp 19 02/25/25 06:52 BP 137/91 H 02/25/25 06:52 Pulse Ox 99 02/25/25 06:52 O2 Del Method Room Air 02/25/25 06:52 Airway Mallampati Class: II TM Dist: >3cm Neck ROM: Full Heart: rrr Lungs: cta Assessment and Plan Assessment Anesthesia Assessment: Anesthesia Plan Discussed and Chart Reviewed Final Anesthetic Review Family History of Problems with Anesthesia: No History of Problems with Anesthesia: No NPO: Yes ASA Class: III Final Preanesthetic Review: No Changes in Pt Med Stat, Meds/Allgs Chart Reviewed and Consent Obtained/Reviewed Patient Risk: Intermediate Procedure Risk: Intermediate Anesthetic Plan Anesthetic Plan: GA Disposition: Standard PACU
== END 2025-02-25 09:05 | disposition home or self-care (01) ==
PROVIDERS: Visit Provider Psychiatry & Neurology Psychiatry
PROC: (CPT 90870; principal; 2025-02-25 07:00)
DX: F31.9 Bipolar disorder, unspecified (principal); F06.1 Catatonic disorder due to known physiological condition; G92.8 Other toxic encephalopathy; J18.9 Pneumonia, unspecified organism; I25.10 Atherosclerotic heart disease of native coronary artery without angina pectoris; Z86.73 Personal history of transient ischemic attack (TIA), and cerebral infarction without residual deficits
CPT/HCPCS: 90870; J0330; J1920; J2250

== ENCOUNTER → 2025-02-25 05:58 | Outpatient (BNV) | payer OTHER, SELFPAY | PROVIDERS: Visit Provider Psychiatry & Neurology Psychiatry | DX: F31.4 Bipolar disorder, current episode depressed, severe, without psychotic features (principal); F06.1 Catatonic disorder due to known physiological condition | CPT/HCPCS: 90870 ==

== ENCOUNTER 2025-03-27 05:59 | Day surgery (SDC) | payer OTHER, SELFPAY ==
--- OUTSIDE RECORDS SUMMARY | 2025-03-25 18:10 | XMS_ITS | Data Portability ---
Author Organization [place] - [facility] [place] Address [address] [place] [address] Care Team Providers Care Museum Educator Name Role Phone YO JUNG Primary Care Provider [phone] YO JUNG Referring Provider Assessment Encounter Date Assessment Date Assessment LastModified by Organization Details LastModified Time 02/05/2025 02/05/2025 My supervising provider is Dr Jackson for this visit and Dr Jackson was present in the office during this office visit. Pt unsure if it has been less or more than a year, will call to schedule Not available 02/05/2025 19:13:25 02/18/2025 02/18/2025 My supervising provider is Dr Jung for this visit and Dr Jung was present in the office during this office visit. 6 mo chronic visit I was present in the office and readily available for any questions or concerns. I have reviewed the history, physical and assessment of this encounter and agree with the treatment plan. -Dr. Jung [email or web address] Not available 02/18/2025 23:22:03 Plan of Treatment Reminders Order Date Submit Date Provider Last Modified By Organization Details Last Modified Time Details Appointments AMB NEW PATIENT 15MIN 2024 03:30P M Jagdish Zimmer MD Not available Not available Not available PCP-Offi ce Visit-30 Min 2024 09:00A M WILI LICEA Not available Not available Not available PCP-Offi ce Visit-15 Min 2024 11:30A WILI HERNANDEZ Not available Not available Not available Lab hepatiti s C virus Ab, serum 2024 025 [facility], [address] [place], [address], 02/18/2025 15:12:07 CMP, serum or plasma 2024 025 [facility], [address] , [place], [address], 02/18/2025 15:10:23 lipid panel, serum 2024 025 [facility], [address], [place], [address], 02/18/2025 15:10:24 CBC w/ auto diff 2024 025 [facility], [address] , [place], [address], 02/18/2025 15:26:29 TSH + free T4, serum 2024 025 [facility], [address] , [place], [address], 02/18/2025 15:10:26 hemoglob in A1C, fingerst ick 2024 025 [facility] In-Office Order, Internal Use Only DO Not Attach Compendium DO Not Attach Compendium, Do Not Delete/merge, [id number] 02/05/2025 16:38:59 glucose, fingerst ick, blood 2024 025 [facility] In-Office Order, Internal Use Only DO Not Attach Compendium DO Not Attach Compendium, Do Not Delete/merge, 02/05/2025 16:41:56 SARS CoV 2 RNA (COVID-1 9), QL, annual giving manager-PCR, respirat ory specimen 2024 025 [facility] (Outpatient Registration) , [address], [place], [address], 10/31/2024 10:01:38 Referral diabetic ophthalm ology referral 2024 [facility], [address] [place], [address], 03/09/2025 12:37:55 urologis t referral 2024 [facility], [address], [place], [address], 02/25/2025 12:30:21 Procedures None recorded . Surgeries None recorded . Imaging None recorded . Medication Orders metformi n ER 500 mg tablet,e xtended release 24 hr 2024 [facility], [address] [place], [address], 02/19/2025 13:53:15 triamcin olone acetonid e 0.1 % topical cream 2024 025 [facility], [address] [place], [address], 02/18/2025 11:20:20 Patient TargetsNo targets recorded. Patient Instructions Encounter Date Encounter Id Patient Instructions Last Modified By Organization Details Last Modified Time 10/30/2024 [id number] You have had an Urgent Care Visit which is designed to address acute issues. It does not represent an exhaustive evaluation of your symptom complex, but is an attempt to treat and manage the most likely cause of your most pressing physical issues. If you are not improved in the time frame that we have discussed, please seek the advice of your PCP who is in a position to order further diagnostic testing and possible specialist consultation. If you are rapidly deteriorating despite the treatment recommendations please do not wait to see your PCP and do proceed to the closest ER where a comprehensive evaluation including consideration to lab and other diagnostic testing as well as consultation is more expeditiously accessible. If you were prescribed medications they have been directly submitted to your pharmacy on file. Please make sure you finish all your medications and if you develop major side effects related to them please do stop taking them and check with your PCP to see if you need to get an alternative medication. If labs or xray were ordered, we will call you with the results if there is any change to your plan of care. You have had an Urgent Care Visit which is designed to address acute issues. It does not represent an exhaustive evaluation of your symptom complex, but is an attempt to treat and manage the most likely cause of your most pressing physical issues. [email or web address] Not available 10/30/2024 09:02:11 Reason for Referral Diabetic Ophthalmology Refer ral for Type 2 diabetes mellitus Referring Physician: Tim Godinez [facility], Encounter Date: 02/18/2025 Urologist Referral for Vasec chan Referring Physician: Tim Godinez [facility], Encounter Date: 02/18/2025 Results Created Date Observation Date Name Description Value Unit Range Abnormal Flag Note LastModifiedBy Organization Detail LastModifiedTime 10/30/1910/31/2024 SARS- COV-2 (NAAT ) sars-cov-2 NOT DETECT ED not detect . The Aptim a SARS- CoV-2 assay is a nucle ic acid ampli ficat ion in vitro diagn ostic test inten ded for the quali tativ e detec tion of RNA from SARS- CoV-2 using Trans cript ion Media eva Ampli ficat ion (TMA) isola eva and purif ied from nasop haryn geal (SESSIONS CLERK), nasal , mid-t urbin ate, and oroph aryng eal (OP) swab speci mens obtai nikki from indiv idual s meeti ng COVID -19 clini noel and/o r epide miolo gical crite lobito. The Aptim a TMA metho d is equiv alent in sensi tivit y and speci ficit y to metho ds utili zing PCR and RT-PC R. Resul ts are for the ident ifica tion of SARS- CoV-2 RNA which is gener ally detec table in upper respi rator y sampl es durin g the acute phase of infec tion. Posit nely resul ts are indic ative of the prese nce of SARS- CoV-2 RNA; clini noel corre latio n with patie nt histo ry and other diagn ostic infor matio n is neces kd to deter mine patie nt infec tion statu s. Posit nely resul ts do not rule out bacte rial infec tion or co-in fecti on with other virus es. Negat nely resul ts do not precl ude SARS- CoV-2 infec tion and shoul d not be used as the sole basis for patie nt manag ement decis ions. Negat nely resul ts must be combi nikki with clini noel obser vatio ns, patie nt histo ry, and epide miolo gical infor matio n. The Aptim a SARS- CoV-2 assay is only for use under the Food and Drug Admin istra tion' s Emerg ency Use Autho rizat ion (EUA) . Not Available [facility] Department [address] [place], [address] 10/31/2024 10:01:38 02/06/20 25 02/05/2025 gluco se, finge rstic k, blood Glucose Result- Ref Range (70 - 106 mg/dl) 101 Not Available In-Of fice Order Internal Use Only DO Not Attach Compendium DO Not Attach Compendium, Do Not Delete/merge, 02/05/2025 16:08:11 02/06/20 25 02/05/2025 gluco se, finge rstic k, blood Lot # [id number] Not Available In-Office Order Internal Use Only DO Not Attach Compendium DO Not Attach Compendium, Do Not Delete/merge, 02/05/2025 16:08:11 02/06/20 25 02/05/2025 gluco se, finge rstic k, blood Exp Date 025 Not Available In-Office Order Internal Use Only DO Not Attach Compendium DO Not Attach Compendium, Do Not Delete/merge, 02/05/2025 16:08:11 02/06/20 25 02/05/2025 hemog lobin A1C, finge rstic k Hemoglobin A1C Result- Ref Range (4.0 - 5.7) 7.2 Not Available In-O ffice Order Internal Use Only DO Not Attach Compendium DO Not Attach Compendium, Do Not Delete/merge, 02/05/2025 16:07:59 02/06/20 25 02/05/2025 hemog lobin A1C, finge rstic k Lot # [id number] Not Available In-Office Order Internal Use Only DO Not Attach Compendium DO Not Attach Compendium, Do Not Delete/merge, [id number] 02/05/2025 16:07:59 02/06/20 25 02/05/2025 hemog lobin A1C, finge rstic k Exp Date 027 Not Available In-Office Order Internal Use Only DO Not Attach Compendium DO Not Attach Compendium, Do Not Delete/merge, [id number] 02/05/2025 16:07:59 02/06/20 25 02/05/2025 hemog lobin A1C, finge rstic k Internal Control Valid Not Available In-Off ice Order Internal Use Only DO Not Attach Compendium DO Not Attach Compendium, Do Not Delete/merge, [id number] 02/05/2025 16:07:59 02/19/20 25 02/18/2025 COMPR EHENS NELY MET. PANEL sodium 136 mmol/ L 136-14 5 normal Not Available [facility] [address] [place] [address], [id number] 02/18/2025 15:10:23 02/19/20 25 02/18/2025 COMPR EHENS NELY MET. PANEL potassium 4.0 mmol/ L 3.5-5. 1 normal Not Available [facility] [address] [place] [address], [id number] 02/18/2025 15:10:23 02/19/20 25 02/18/2025 COMPR EHENS NELY MET. PANEL chloride 102 mmol/ L 98-107 normal Not Available [facility] Department [address] [place] [address], [address] 02/18/2025 15:10:23 02/19/20 25 02/18/2025 COMPR EHENS NELY MET. PANEL carbon dioxide 22 mmol/ L 22-29 normal Not Available [facility] [address] [place] [address], [address] 02/18/2025 15:10:23 02/19/20 25 02/18/2025 COMPR EHENS NELY MET. PANEL anion gap 17 mmol/ L 10-20 normal Not Available [facility] [address] [place] [address], [address] 02/18/2025 15:10:23 02/19/20 25 02/18/2025 COMPR EHENS NELY MET. PANEL blood urea nitrogen 7 mg/dL 6-20 normal Not Available [facility] Department [address] [place], [address] 02/18/2025 15:10:23 02/19/20 25 02/18/2025 COMPR EHENS NELY MET. PANEL creatinine 0.93 mg/dL 0.67-1 .17 normal Not Available [facility] Department [address] [place], [address] 02/18/2025 15:10:23 02/19/20 25 02/18/2025 COMPR EHENS NELY MET. PANEL estimated glomerular filt rate 109 GFR Value : mL/mi n/1.7 3 squar e meter s Calcu latio n: CKD-E PI Creat inine Equat ion (2020 ) Chron ic Kidne y Disea se is defin ed as eithe r of the follo wing prese nt for >= 3 month s: - GFR less than 60 mL/mi n/1.7 3 squar e meter s. - Micro album in:Ur . Creat inine Ratio >= 30 mg/g or other marke rs of kidne y damag e Kidne y failu re is less than 15 mL/mi n/1.7 3 squar e meter s This test is not perfo rmed in patie nts under the age of 18. Not Available [facility] Department [address] [place], [address] 02/18/2025 15:10:23 02/19/20 25 02/18/2025 COMPR EHENS NELY MET. PANEL glucose 85 mg/dL 70-106 normal Not Available [facility] Department [address] [place], [address] 02/18/2025 15:10:23 02/19/20 25 02/18/2025 COMPR EHENS NELY MET. PANEL calcium 10.2 mg/dL 8.6-10 .3 normal Not Available [facility] Department [address] [place], [address] 02/18/2025 15:10:23 02/19/20 25 02/18/2025 COMPR EHENS NELY MET. PANEL bilirubin total 0.3 mg/dL 0.2-1. 2 normal Not Available [facility] Department [address] [place], [address] 02/18/2025 15:10:23 02/19/20 25 02/18/2025 COMPR EHENS NELY MET. PANEL aspartate amino transferase 29 U/L 5-40 normal Not Available [facility] Department [address] [place], [address] 02/18/2025 15:10:23 02/19/20 25 02/18/2025 COMPR EHENS NELY MET. PANEL alanine aminotransfe rase 47 U/L 5-41 high Not Available [facility] Department [address] [place], [address] 02/18/2025 15:10:23 02/19/20 25 02/18/2025 COMPR EHENS NELY MET. PANEL total protein 7.2 g/dL 6.4-8. 3 normal Not Available [facility] Department [address] [place], [address] 02/18/2025 15:10:23 02/19/20 25 02/18/2025 COMPR EHENS NELY MET. PANEL albumin level 5.0 g/dL 3.5-5. 2 normal Not Available [facility] Department [address] [place], [address] 02/18/2025 15:10:23 02/19/20 25 02/18/2025 COMPR EHENS NELY MET. PANEL globulin 2.3 gm/dL 2.0-3. 5 normal Not Available [facility] Department [address] [place], [address] 02/18/2025 15:10:23 02/19/20 25 02/18/2025 COMPR EHENS NELY MET. PANEL albumin globulin ratio 2.2 % 1.1-2. 5 normal Not Available [facility] Department [address] [place], [address] 02/18/2025 15:10:23 02/19/20 25 02/18/2025 COMPR EHENS NELY MET. PANEL alkaline phosphatase 61 U/L 40-129 normal Not Available [facility] Department [address] [place], [address] 02/18/2025 15:10:23 02/19/20 25 02/18/2025 LIPID PANEL WITH REFLE X triglyceride s 293 mg/dL 30-150 high Refer ence Range s: <150 mg/dl Maxine l 150-1 99 mg/dl Borde rline High 200-4 99 mg/dl High >500 mg/dl Very High Not Available [facility] Department [address] [place], [address] 02/18/2025 15:10:24 02/19/20 25 02/18/2025 LIPID PANEL WITH REFLE X cholesterol 178 mg/dL 100-20 0 normal Not Available [facility] Department [address] [place], [address] 02/18/2025 15:10:24 02/19/20 25 02/18/2025 LIPID PANEL WITH REFLE X LDL cholesterol direct TNP mg/dL 0-100 Not Available [facility] Department [address] [place], [address] 02/18/2025 15:10:24 02/19/20 25 02/18/2025 LIPID PANEL WITH REFLE X LDL cholesterol calculated 80.0 mg/dL 0-100 normal Natio nal Lucero stero l Educa tion Progr am sugge sts the follo wing refer ence range : Optim al <100 mg/dL Near optim al/ab ove optim al 100-1 29 mg/dL Borde rline high 130-1 59 mg/dL High 160-1 89 mg/dL Very high >190 mg/dL Not Available [facility] Department [address] [place], [address] 02/18/2025 15:10:24 02/19/20 25 02/18/2025 LIPID PANEL WITH REFLE X HDL cholesterol 39.9 mg/dL 40-60 low Major risk facto r for CHD: <40 mg/dL Negat nely risk facto r for CHD: >=60 mg/dL Not Available [facility] Department [address] [place], [address] 02/18/2025 15:10:24 02/19/20 25 02/18/2025 LIPID PANEL WITH REFLE X chol HDL ratio 4.46 Risk CHOL/ HDL CHOL/ HDL Ratio Male Femal e 1/2 AVERA GE 3.43 3.27 AVERA GE 4.97 4.44 2 X AVERA GE 9.55 7.05 3 X AVERA GE 23.39 11.04 Not Available [facility] [address] [place] [address], [address] 02/18/2025 15:10:24 02/19/20 25 02/18/2025 TSH REFLE X FREE T4 free T4 (free thyroxine) TNP NG/dL 0.9-1. 7 Not Available [facility] [address] [place] [address], [address] 02/18/2025 15:10:26 02/19/20 25 02/18/2025 TSH REFLE X FREE T4 TSH reflex free T4 1.32 uIU/m L 0.27-4 .20 normal Not Available [facility] [address] [place] [address], [address] 02/18/2025 15:10:26 02/19/20 25 02/18/2025 HEPAT ITIS C ANTIB MARC hepatitis C virus antibody NONREA CTIVE nonrea ctive Nonre activ e/Ant ibodi es to HCV not detec eva; does not exclu de early acute HCV infec tion Not Available [facility] Department [address] [place] [address], [address] 02/18/2025 15:12:07 02/19/20 25 02/18/2025 COMPL ETE BLOOD COUNT AUTO DIFF white blood count 10.37 K/uL 3.5-11 .0 normal Not Available [facility] Department [address] [place] [address], [address] 02/18/2025 15:26:29 02/19/20 25 02/18/2025 COMPL ETE BLOOD COUNT AUTO DIFF red blood count 4.66 M/uL 3.90-5 .50 normal Not Available [facility] Department [address] [place] [address], [address] 02/18/2025 15:26:29 02/19/20 25 02/18/2025 COMPL ETE BLOOD COUNT AUTO DIFF hemoglobin 15.5 g/dL 14.0-1 8.0 normal Not Available [facility] Department [address] [place] [address], [address] 02/18/2025 15:26:29 02/19/20 25 02/18/2025 COMPL ETE BLOOD COUNT AUTO DIFF hematocrit 44.1 % 42.0-5 4.0 normal Not Available [facility] Department [address] [place], [address] 02/18/2025 15:26:29 02/19/20 25 02/18/2025 COMPL ETE BLOOD COUNT AUTO DIFF mean corpuscular volume 94.6 fL 80.0-1 00.0 normal Not Available [facility] [address] [place] [address], [address] 02/18/2025 15:26:29 02/19/20 25 02/18/2025 COMPL ETE BLOOD COUNT AUTO DIFF mean corpuscular hemoglobin 33.3 pg 25.4-3 4.6 normal Not Available [facility] [address] [place] [address], [address] 02/18/2025 15:26:29 02/19/2002/18/2025 COMPL ETE BLOOD COUNT AUTO DIFF mean corpuscular HGB conc 35.1 g/dL 31.0-3 7.0 normal Not Available [facility] Department [address] [place] [address], [address] 02/18/2025 15:26:29 02/19/20 25 02/18/2025 COMPL ETE BLOOD COUNT AUTO DIFF red cell distribution width 14.1 % 11.5-1 4.5 normal Not Available [facility] Department [address] [place] [address], [address] 02/18/2025 15:26:29 02/19/20 25 02/18/2025 COMPL ETE BLOOD COUNT AUTO DIFF platelet count 252 K/uL 150-40 0 normal Not Available [facility] Department [address] [place] [address], [address] 02/18/2025 15:26:29 02/19/20 25 02/18/2025 COMPL ETE BLOOD COUNT AUTO DIFF neutrophils percent auto 66.6 % 35.0-6 6.0 high Not Available [facility] [address] [place] [address], [address] 02/18/2025 15:26:29 02/19/20 25 02/18/2025 COMPL ETE BLOOD COUNT AUTO DIFF imm gran pct auto 0.3 % 0.0-0. 6 normal Not Available [facility] [address] [place] [address], [address] 02/18/2025 15:26:29 02/19/20 25 02/18/2025 COMPL ETE BLOOD COUNT AUTO DIFF lymphocytes percent auto 26.1 % 25.0-4 5.0 normal Not Available [facility] [address] [place] [address], [address] 02/18/2025 15:26:29 02/19/20 25 02/18/2025 COMPL ETE BLOOD COUNT AUTO DIFF monocytes percent auto 4.2 % 0.0-13 .0 normal Not Available [facility] Department [address] [place] [address], [address]678 02/18/2025 15:26:29 02/19/20 25 02/18/2025 COMPL ETE BLOOD COUNT AUTO DIFF eosinophils percent auto 2.4 % 0.0-8. 0 normal Not Available [facility] Department [address] [place] [address], [address] 02/18/2025 15:26:29 02/19/20 25 02/18/2025 COMPL ETE BLOOD COUNT AUTO DIFF basophils percent auto 0.4 % 0.0-1. 0 normal Not Available [facility] Department [address] [place] [address], [address] 02/18/2025 15:26:29 02/19/20 25 02/18/2025 COMPL ETE BLOOD COUNT AUTO DIFF NRBC pct auto 0.0 /100_ WBC 0.0 normal Not Available [facility] [address] [place] [address], [address] 02/18/2025 15:26:29 02/19/20 25 02/18/2025 COMPL ETE BLOOD COUNT AUTO DIFF neutrophils absolute auto 6.90 K/uL 1.5-7. 5 normal Not Available [facility] [address] [place] [address], 329[address] 02/18/2025 15:26:29 02/19/20 25 02/18/2025 COMPL ETE BLOOD COUNT AUTO DIFF imm gran abs auto 0.03 K/uL 0.00-0 .09 normal Not Available [facility] Department [address] [place] [address], [address] 02/18/2025 15:26:29 02/19/20 25 02/18/2025 COMPL ETE BLOOD COUNT AUTO DIFF lymphocytes absolute auto 2.71 K/uL 0.8-4. 8 normal Not Available [facility] [address] [place] [address], 64765 02/18/2025 15:26:29 02/19/20 25 02/18/2025 COMPL ETE BLOOD COUNT AUTO DIFF monocytes absolute auto 0.44 K/uL 0.4-1. 3 normal Not Available [facility] [address] [place] [address], [address] 02/18/2025 15:26:29 02/19/20 25 02/18/2025 COMPL ETE BLOOD COUNT AUTO DIFF eosinophils absolute auto 0.25 K/uL 0.0-0. 8 normal Not Available [facility] [address] [place] [address], 29754 02/18/2025 15:26:29 02/19/20 25 02/18/2025 COMPL ETE BLOOD COUNT AUTO DIFF basophils absolute auto 0.04 K/uL 0.0-0. 6 normal Not Available [facility] [address] [place] [address], [address]163 02/18/2025 15:26:29 02/19/20 25 02/18/2025 COMPL ETE BLOOD COUNT AUTO DIFF NRBC abs auto 0.00 K/uL 0.00 normal Not Available [facility] Department [address] [place] [address], [address] 02/18/2025 15:26:29 02/20/20 25 02/19/2025 COMPL ETE BLOOD COUNT AUTO DIFF white blood count 12.56 K/uL 3.5-11 .0 high Not Available [facility] [address] [place] [address], [address] 02/19/2025 10:15:17 02/20/20 25 02/19/2025 COMPL ETE BLOOD COUNT AUTO DIFF red blood count 4.84 M/uL 3.90-5 .50 normal Not Available [facility] Department [address] [place] [address], 620[address] 02/19/2025 10:15:17 02/20/20 25 02/19/2025 COMPL ETE BLOOD COUNT AUTO DIFF hemoglobin 16.0 g/dL 14.0-1 8.0 normal Not Available [facility] [address] [place] [address], 165[address] 02/19/2025 10:15:17 02/20/20 25 02/19/2025 COMPL ETE BLOOD COUNT AUTO DIFF hematocrit 46.5 % 42.0-5 4.0 normal Not Available [facility] [address] [place] [address], 44267 02/19/2025 10:15:17 02/20/20 25 02/19/2025 COMPL ETE BLOOD COUNT AUTO DIFF mean corpuscular volume 96.1 fL 80.0-1 00.0 normal Not Available [facility] [address] [place] [address], 43023 02/19/2025 10:15:17 02/20/20 25 02/19/2025 COMPL ETE BLOOD COUNT AUTO DIFF mean corpuscular hemoglobin 33.1 pg 25.4-3 4.6 normal Not Available [facility] [address] [place] [address], 99830 02/19/2025 10:15:17 02/20/2002/19/2025 COMPL ETE BLOOD COUNT AUTO DIFF mean corpuscular HGB conc 34.4 g/dL 31.0-3 7.0 normal Not Available [facility] Department [address] [place] [address], [address]16 02/19/2025 10:15:17 02/20/20 25 02/19/2025 COMPL ETE BLOOD COUNT AUTO DIFF red cell distribution width 14.9 % 11.5-1 4.5 high Not Available [facility] Department [address] [place] [address], [id number] 02/19/2025 10:15:17 02/20/20 25 02/19/2025 COMPL ETE BLOOD COUNT AUTO DIFF platelet count 266 K/uL 150-40 0 normal Not Available [facility] Department [address] [place] [address], 90383 02/19/2025 10:15:17 02/20/20 25 02/19/2025 COMPL ETE BLOOD COUNT AUTO DIFF neutrophils percent auto 67.6 % 35.0-6 6.0 high Not Available [facility] Department [address] [place] [address], 27351 02/19/2025 10:15:17 02/20/20 25 02/19/2025 COMPL ETE BLOOD COUNT AUTO DIFF lymphocytes percent auto 25.0 % 25.0-4 5.0 normal Not Available [facility] Department [address] [place] [address], 85435 02/19/2025 10:15:17 02/20/20 25 02/19/2025 COMPL ETE BLOOD COUNT AUTO DIFF monocytes percent auto 5.1 % 0.0-13 .0 normal Not Available [facility] Department [address] [place] [address], 15802 02/19/2025 10:15:17 02/20/20 25 02/19/2025 COMPL ETE BLOOD COUNT AUTO DIFF eosinophils percent auto 2.1 % 0.0-8. 0 normal Not Available [facility] Department [address] [place] [address], 02428 02/19/2025 10:15:17 02/20/20 25 02/19/2025 COMPL ETE BLOOD COUNT AUTO DIFF basophils percent auto 0.2 % 0.0-1. 0 normal Not Available [facility] Department [address] [place] [address], 39051 02/19/2025 10:15:17 02/20/20 25 02/19/2025 COMPL ETE BLOOD COUNT AUTO DIFF neutrophils absolute auto 8.49 K/uL 1.5-7. 5 high Not Available [facility] Department [address] [place] [address], 17801 02/19/2025 10:15:17 02/20/20 25 02/19/2025 COMPL ETE BLOOD COUNT AUTO DIFF lymphocytes absolute auto 3.14 K/uL 0.8-4. 8 normal Not Available [facility] Department [address] [place] [address], 30090 02/19/2025 10:15:17 02/20/20 25 02/19/2025 COMPL ETE BLOOD COUNT AUTO DIFF monocytes absolute auto 0.64 K/uL 0.4-1. 3 normal Not Available [facility] Department [address] [place] [address], 6[address] 02/19/2025 10:15:17 02/20/20 25 02/19/2025 COMPL ETE BLOOD COUNT AUTO DIFF eosinophils absolute auto 0.27 K/uL 0.0-0. 8 normal Not Available [facility] Department [address] [place] [address], [id number] 02/19/2025 10:15:17 02/20/20 25 02/19/2025 COMPL ETE BLOOD COUNT AUTO DIFF basophils absolute auto 0.02 K/uL 0.0-0. 6 normal Not Available [facility] Department [address] [place], [address] 02/19/2025 10:15:17 02/20/20 25 02/19/2025 LITHI UM lithium 0.9 mmol/ L 0.6-1. 2 normal Not Available [facility] Department [address] [place] [address], [address] 02/19/2025 10:38:28 02/20/20 25 02/19/2025 COMPR EHENS NELY MET. PANEL sodium 139 mmol/ L 136-14 5 normal Not Available [facility] Department [address] [place] [address], [address] 02/19/2025 10:41:02 02/20/20 25 02/19/2025 COMPR EHENS NELY MET. PANEL potassium 3.6 mmol/ L 3.5-5. 1 normal Not Available [facility] Department [address] [place] [address], [address] 02/19/2025 10:41:02 02/20/20 25 02/19/2025 COMPR EHENS NELY MET. PANEL chloride 101 mmol/ L 98-107 normal Not Available [facility] Department [address] [place] [address], [address] 02/19/2025 10:41:02 02/20/20 25 02/19/2025 COMPR EHENS NELY MET. PANEL carbon dioxide 24 mmol/ L 22-29 normal Not Available [facility] Department [address] [place] [address], [id number] 02/19/2025 10:41:02 02/20/20 25 02/19/2025 COMPR EHENS NELY MET. PANEL anion gap 18 mmol/ L 10-20 normal Not Available [facility] Department [address] [place] [address], [address] 02/19/2025 10:41:02 02/20/20 25 02/19/2025 COMPR EHENS NELY MET. PANEL blood urea nitrogen 7 mg/dL 6-20 normal Not Available [facility] Laboratory Department [address] [place] [address], [id number] 02/19/2025 10:41:02 02/20/20 25 02/19/2025 COMPR EHENS NELY MET. PANEL creatinine 1.04 mg/dL 0.67-1 .17 normal Not Available [facility] Department [address] [place] [address], [address] 02/19/2025 10:41:02 02/20/20 25 02/19/2025 COMPR EHENS NELY MET. PANEL estimated glomerular filt rate 95 GFR Value : mL/mi n/1.7 3 squar e meter s Calcu latio n: CKD-E PI Creat inine Equat ion (2020 ) Chron ic Kidne y Disea se is defin ed as eithe r of the follo wing prese nt for >= 3 month s: - GFR less than 60 mL/mi n/1.7 3 squar e meter s. - Micro album in:Ur . Creat inine Ratio >= 30 mg/g or other marke rs of kidne y damag e Kidne y failu re is less than 15 mL/mi n/1.7 3 squar e meter s This test is not perfo rmed in patie nts under the age of 18. Not Available [facility] Department [address] [place], [address] 02/19/2025 10:41:02 02/20/20 25 02/19/2025 COMPR EHENS NELY MET. PANEL glucose 94 mg/dL 70-106 normal Not Available [facility] Department [address] [place], [address] 02/19/2025 10:41:02 02/20/20 25 02/19/2025 COMPR EHENS NELY MET. PANEL calcium 10.2 mg/dL 8.6-10 .3 normal Not Available [facility] Department [address] [place], [address] 02/19/2025 10:41:02 02/20/20 25 02/19/2025 COMPR EHENS NELY MET. PANEL bilirubin total 0.4 mg/dL 0.2-1. 2 normal Not Available [facility] Department [address] [place], [address] 02/19/2025 10:41:02 02/20/20 25 02/19/2025 COMPR EHENS NELY MET. PANEL aspartate amino transferase 25 U/L 5-40 normal Not Available [facility] Laboratory Department [address] [place], [address] 02/19/2025 10:41:02 02/20/20 25 02/19/2025 COMPR EHENS NELY MET. PANEL alanine aminotransfe rase 40 U/L 5-41 normal Not Available [facility] Laboratory Department [address] [place], [address] 02/19/2025 10:41:02 02/20/20 25 02/19/2025 COMPR EHENS NELY MET. PANEL total protein 7.8 g/dL 6.4-8. 3 normal Not Available [facility] Department [address] [place] [address], [address] 02/19/2025 10:41:02 02/20/20 25 02/19/2025 COMPR EHENS NELY MET. PANEL albumin level 5.2 g/dL 3.5-5. 2 normal Not Available [facility] Department [address] [place] [address], [address] 02/19/2025 10:41:02 02/20/20 25 02/19/2025 COMPR EHENS NELY MET. PANEL globulin 2.6 gm/dL 2.0-3. 5 normal Not Available [facility] Department [address] [place] [address], [address] 02/19/2025 10:41:02 02/20/20 25 02/19/2025 COMPR EHENS NELY MET. PANEL albumin globulin ratio 2.0 % 1.1-2. 5 normal Not Available [facility] Department [address] [place] [address], [address] 02/19/2025 10:41:02 02/20/20 25 02/19/2025 COMPR EHENS NELY MET. PANEL alkaline phosphatase 70 U/L 40-129 normal Not Available [facility] Laboratory Department [address] [place] [address], [address] 02/19/2025 10:41:02 Result Notes None recorded. Problems Name Problem SNOMED Code Status Onset Date Resolution Date Notes Provider Name and Address Organization Details Recorded Time Hypertriglycer idemia 425491737 Active 2024 WILI LICEA [address] [place] [address] [place], [phone], [facility] 21:44:49 Generalized anxiety disorder 20284045 Active 2024 WILI LICEA [address] [place] [address], [address], [facility] 21:45:23 Schizophrenic disorders 090480906 Active 2024 WILI LICEA [address] [place] [address] [place], [address], [facility] 21:45:54 Type 2 diabetes mellitus 97951018 Active 2024 WILI LICEA [address] [place] [address] [place], [address], [facility] 21:46:31 Essential hypertension 12588675 Active 2024 WILI LICEA [address] [place] [address] [place], [address], [facility] 21:47:09 Primary insomnia 0095459 Active 2024 WILI LICEA [address] [place], [place] [address], [place], [address], [facility] 21:47:30 Problem Notes None recorded. Procedures Surgical History Date Name Laterality Status Provider Name and Address Organization Details Recorded Time 07/28/20 Tobacco (smoking) Cessation completed COLTON DOAN NP [address] [place] [address], [phone], [facility] 07/28/2024 16:32:41 Imaging Results None recorded. Procedure Notes None recorded. Medical Equipment None Reported. Allergies Allergen ID Allergen Name Allergen Category Reaction Reaction Severity Criticality Documentation Date Start Date Code Code System Note Provider Name and Address Organization Details Recorded Time 787890 Zoloft medicatio n other severe Not available 08/08/2021 32026 [facility] Medications Name Sig Start Date Stop Date Status Note LastModified by Organization Details LastModified Time metformin 500 mg tablet Take 2 tablets twice a day by oral route. 02/18 completed Not Available Not Available Not Available sildenafi l 50 mg tablet TAKE 1 TABLET BY MOUTH ONCE DAILY NEEDED APPROXIM ATELY 1 HOUR BEFORE SEXUAL ACTIVITY active Not Available Not Available No t Available benzonata te 200 mg capsule Take 1 capsule 3 times a day by oral route. 03/06 /2024 completed Not Available Not Available Not Available prednison e 20 mg tablet take 2 tablets by mouth in the morning with meal 07/28 completed Not Available Not Available Not Available clonazepa m 0.5 mg tablet TAKE 2 TABLETS BY MOUTH EVERY MORNING NEEDED FOR ANXIETY 02/04 completed Not Available Not Available Not Available quetiapin e 200 mg tablet 02/04 completed Not Available Not Available Not Available clonazepa m 1 mg tablet Take 1 tablet 3 times a day by oral route. 02/04 completed Not Available Not Available Not Available olanzapin e 10 mg tablet TAKE 1 TABLET BY MOUTH EVERY DAY 02/04 completed Not Available Not Available Not Available Vitamins B Complex capsule 02/04 completed Not Available Not Available Not Available triamcino lone acetonide 0.1 % topical cream APPLY THIN LAYER EXTERNAL LY TO AFFECTED AREA TWICE DAILY active Not Available Not Available No t Available prazosin 5 mg capsule TAKE 1 CAPSULE BY MOUTH ONCE DAILY AT BEDTIME active Not Available Not Available No t Available trazodone 100 mg tablet TAKE 2 TABLETS BY MOUTH ONCE DAILY AT BEDTIME active Not Available Not Available No t Available lithium carbonate 300 mg capsule Take 2 capsules twice a day by oral route. active Not Available Not Available No t Available benzonata te 100 mg capsule 06/28 completed Not Available Not Available Not Available prednison e 50 mg tablet Take 1 tablet every day by oral route for 5 days. 12/04 completed Not Available Not Available Not Available hydroxyzi ne HCl 25 mg tablet TAKE 1 TABLET BY MOUTH THREE TIMES DAILY NEEDED FOR ANXIETY active Not Available Not Available No t Available lorazepam 1 mg tablet 02/04 completed Not Available Not Available Not Available ibuprofen 600 mg tablet 02/04 completed Not Available Not Available Not Available propranol ol 20 mg tablet 02/04 completed Not Available Not Available Not Available lithium carbonate 300 mg tablet TAKE 2 TABLETS BY MOUTH TWICE DAILY active Not Available Not Available No t Available fluticaso ne propionat e 50 mcg/actua tion nasal spray,uziel pension SPRAY 1 SPRAY BY INTRANAS AL ROUTE EVERY DAY 02/04 completed Not Available Not Available Not Available metformin ER 500 mg tablet,ex tended release 24 hr Take 4 tablets every day by oral route in the evening for 90 days. 02/19 completed INS requires 90 day Not Available Not Available Not Available doxycycli ne hyclate 100 mg tablet Take 1 tablet twice a day by oral route for 5 days. 12/04 completed Not Available Not Available Not Available olanzapin e 20 mg tablet 02/04 completed Not Available Not Available Not Available lamotrigi ne 100 mg tablet Take 1 tablet every day by oral route. 02/04 completed Not Available Not Available Not Available naproxen 500 mg tablet Take 1 tablet twice a day by oral route. 02/04 completed not taking- AH Not Available Not Available Not Available Inderal LA 60 mg capsule,e xtended release Take 1 capsule every day by oral route. 02/04 completed Not Available Not Available Not Available olanzapin e 07/28 completed Not Available Not Available Not Available vitamin B complex 02/04 completed Not Available Not Available Not Available ProAir HFA 90 mcg/actua tion aerosol inhaler 02/04 completed Not Available Not Available Not Available Seroquel 400 mg tablet Take 1 tablet twice a day by oral route. 02/04 completed Not Available Not Available Not Available fenofibra te 54 mg tablet TAKE 1 TABLET BY MOUTH ONCE DAILY active Not Available Not Available No t Available lurasidon e 80 mg tablet TAKE 1 TABLET BY MOUTH ONCE DAILY active Not Available Not Available No t Available Jardiance 10 mg tablet TAKE 1 TABLET BY MOUTH ONCE DAILY active Not Available Not Available No t Available Vitals Date Recorded Body height Body temperature Oxygen saturation Oxygen saturation in Arterial blood by Pulse oximetry Heart rate Systolic blood pressure Diastolic blood pressure Provider Name and Address Organization Details Last Updated DateTime 5 185.42 cm 98.7 [degF] 97 % 97 % 113 /min 118 mm[Hg] 70 mm[Hg] Mariaelena Turner [facility] 5 08:50:08 Date Recorded Body height Body mass index (BMI) Body weight Heart rate Oxygen saturation Oxygen saturation in Arterial blood by Pulse oximetry Systolic blood pressure Diastolic blood pressure Provider Name and Address Organization Details Last Updated DateTime 5 185.42 cm 27.1 kg/m2 83471.2 4 g 98 /min 97 % 97 % 118 mm[Hg] 80 mm[Hg] Khalida Kaplan ARTUR [facility] 16:00:44 Date Recorded Body height Body mass index (BMI) Body weight Heart rate Oxygen saturation Oxygen saturation in Arterial blood by Pulse oximetry Systolic blood pressure Diastolic blood pressure Provider Name and Address Organization Details Last Updated DateTime 181.86 cm 27.3 kg/m2 16502.5 8 g 93 /min 99 % 99 % 110 mm[Hg] 82 mm[Hg] Khalida ARTUR Kaplan [facility] 11:02:50 Social History Question Answer Notes LastModified by Organization Details LastModified Time Tobacco Smoking Status Current Every Day Smoker COLTON DOAN NP [address] [place] [address], [phone], [facility] 07/28/2024 16:32:10 Do You Have An Advance Directive? No Information not available 02/05/2025 Are You Blind Or Do You Have Difficulty Seeing? No Information not available 02/05/2025 Is Blood Transfusion Acceptable In An Emergency? Yes Information not available 02/05/2025 What Is Your Level Of Caffeine Consumption? Moderate Information not available 02/05/2025 Are You A Caregiver? Yes Information not available 02/05/2025 What Type Of Locator Specialist Do You Use? None Information not available 02/05/2025 Are You Deaf Or Do You Have Serious Difficulty Hearing? No Information not available 02/05/2025 What Type Of Diet Are You Following? REGULAR Stays Away From Cereal. Being Conscious Of What He Is Eating Information not available 02/05/2025 What Is The Highest Grade Or Level Of School You Have Completed Or The Highest Degree You Have Received? [id number] May Try For Disability Information not available 02/05/2025 Have There Been Any Changes To Your Family Or Social Situation? Yes Recent Admission For Psych For 30 Days Information not available 02/05/2025 Are There Any Guns Present In Your Home? No Information not available 02/05/2025 Which Of Your Hands Is Dominant? Bilateral Information not available 02/05/2025 Where Do You Live? [facility] Information not available 02/05/2025 Tobacco Use (smoking, Smokeless Tobacco) Yes Information not available 02/18/2025 Date Of Tobacco Screen 02/18/2025 Information not available 02/18/2025 How Long Have You Lived There? 10 Information not available 02/05/2025 What Was The Date Of Your Most Recent Tobacco Screening? 02/18/2025 Information not available 02/18/2025 How Many Children Do You Have? 2 Information not available 02/05/2025 Do You Have Any Pets? No Information not available 02/05/2025 What Is Your Relationship Status? Information not available 02/05/2025 Do You Use Your Seat Belt Or Car Seat Routinely? Yes Information not available 02/05/2025 Do You Have Smoke And Carbon Monoxide Detectors In Your Home? Yes Information not available 02/05/2025 At What Age Did You Start Smoking Tobacco? 14 Information not available 02/05/2025 Are There Any Smokers In Your House? Yes Information not available 02/05/2025 How Much Tobacco Do You Smoke? 1 PPD Information not available 02/05/2025 Do You Use Sunscreen Routinely? Yes Information not available 02/05/2025 Has Tobacco Cessation Counseling Been Provided? Yes Information not available 02/05/2025 On What Date Was Tobacco Cessation Counseling Provided? 02/05/2025 No Interest In Quitting Information not available 02/05/2025 How Many Years Have You Smoked Tobacco? 20 Information not available 02/05/2025 Do You Have Difficulty Walking Or Climbing Stairs? No Information not available 02/05/2025 Are You Currently In School? No Information not available 02/05/2025 Do You Have Any Dietary Restrictions? No Information not available 02/05/2025 Sex: Male Functional Status Question Answer Note LastModified by Organizat ion Details LastModified Time Do you use any illicit or recreational drugs? No Information not available 02/05/2025 Do you or have you ever used any other forms of tobacco or nicotine? No Information not available 02/05/2025 What is your level of alcohol consumption? None Information not available 02/05/2025 Are you able to walk? YESWOREST Information not available 02/05/2025 Do you have difficulty doing errands alone? No Information not available 02/05/2025 Do you have difficulty dressing or bathing? No Information not available 02/05/2025 What is your exercise level? None Information not available 02/05/2025 Mental Status Question Answer Note LastModified by Organizat ion Details LastModified Time Do you feel stressed (tense, restless, nervous, or anxious, or unable to sleep at night)? [id number] Trazodone just starting to work Information not available 02/05/2025 Do you have difficulty concentrating, remembering or making decisions? Yes Information not available 02/05/2025 Family History Relationship Description Onset Age of this Age Resolved Age Notes LastModified by Organization Details LastModified Time Mother Hypertensive disorder Not available 2024 16:08:43 Mother Heart disease Not available 2024 16:08:56 Father Chronic obstructive pulmonary disease smoker Not available 2024 16:09:11 Maternal Grandmother Malignant neoplasm of lung Smoker Not available 2024 16:09:40 Medical History No medical history recorded. Immunizations Vaccine Type Date Status Note Provider Nam e and Address Organization Details Recorded Time Tdap 10/22/2018 completed Not Available [facility] 02/18/2025 10:50:34 Influenza, split virus, trivalent, PF 06/15/2020 completed Not Available [facility] 2024 10:50:34 COVID-19, mRNA, LNP-S, bivalent, PF, 50 mcg/0.5 mL or 25mcg/0.25 mL dose 08/10/2022 completed Not Available [facility] 10:50:34 COVID-19, mRNA, LNP-S, PF, 100 mcg/0.5mL dose or 50 mcg/0.25mL dose 02/20/2021 completed Not Available [facility] 10:50:34 COVID-19, mRNA, LNP-S, PF, 100 mcg/0.5mL dose or 50 mcg/0.25mL dose 01/23/2021 completed Not Available [facility] 10:50:34 Past Encounters Encounter ID Performer Location Encounter Start Date Encounter Closed Date Diagnosis/Indication Diagnosis SNOMED-CT Code Diagnosis ICD10 Code Diagnosis Note [id number] [facility] [address] [place] [address] 11/30/2016 19:27:33 11/30/2016 20:11:44 Upper respiratory infection 75485768 J06.9 Pt with cough, body aches, sore throat with normal exam. Negative rapid flu and negative rapid strep. Advised likely viral self-resol ving illness. Advised rest, fluids, tylenol/ib uprofen PRN. Follow up in 5-7 days if not improving or sooner if worsening. Acute pharyngitis 277229 003 J02.9 Rapid strep negative, culture pending. Supportive care with rest, fluids, salt water gargles, Ibuprofen/ Tylenol PRN. Follow-up in 2-3 days if not improving or sooner if worsening. [id number] [facility] [address] [place] [address] 06/21/2017 10:19:23 06/21/2017 11:26:05 Lightheadedness 168299212 R42 Pt states last night felt like the room was spinni ng and had to sit. Resolved on it's own after about 5minutes. Since then no dizziness just ongoing lightheade dness. Previous normal workup through PCP with shelter monitor and labs due to ongoing lightheade dness x1 year but states it is now worse and did not feel safe being at work today. Normal exam including neurologic al exam today and pt is stable and ambulating normally. Work note given for today and tomorrow EKG, orthostati cs, blood glucose obtained today and are normal. Bloodwork obtained today for further eval. Advise to call PCP to make f/u tomorrow for re-eval and discuss labs and testing from today and further evaluation including possible referrals for further investigat ion into ongoing lightheade dness. Pt also states he has a family history of sleep apnea and does snore heavily, discussed possible evaluation for sleep apnea causing or contributi ng to ongoing symptoms. Any sudden worsening symptoms advised ED evaluation Dizziness 230550605 R42 [id number] WILI [facility] [address] [facility],[address] [place] [address] 06/10/2019 12:47:45 06/10/2019 14:37:21 [id number] FELICE DOAN NP [facility] [address] [address] 08/08/2021 12:56:12 08/08/2021 15:09:03 Cough 97534888 R05.9 Symptoms nearly nearly resolved per patient and had a negative Covid test already. [employer] employer requires him to have a note to return to work. Will provide with return to work note as below. [id number] WILI KAUFMAN [facility] [address] [address] 08/12/2021 16:40:20 08/12/2021 17:18:43 Postviral cough 444012898 R05.9 31 y/o afebrile, non toxic or hypoxic male here today for evaluation of coughVSS no adventitio us lung sounds on examCovid swab collected. Quarantine protocols reviewedRx prednisone and tessalon for cough.Ster oid medication to be taken with food, early in the day. Do not combine with other ocer the counter NSAID products (ibuprofen , advil, aleve). May use tylenol as needed for breakthrou gh pain. Can restart use of advil/ ibuprofen/ motrin/ aleve following completion of steroid prescripti on.Recomme nd OTC symptomati c care. Supportive care- salt water gargles, honey, humidified air, nasal saline irrigation . Consider OTC antihistam ine treatmentE mergent s/sx and appropriat e f/u reviewed Patient vocalizes understand ing and is in agreement with discussed plan of careYou have had an Urgent Care Visit which is designed to address acute issues. It does not represent an exhaustive evaluation of your symptom complex, but is an attempt to treat and manage the most likely cause of your most pressing physical issues. If you are not improved in the time frame that we have discussed, please seek the advice of your PCP who is in a position to order further diagnostic testing and possible specialist consultati on. If your condition is worsening despite the treatment recommenda tions please do not wait to see your PCP and do proceed to the closest ER where a comprehens nely evaluation including considerat ion to lab and other diagnostic testing as well as consultati on is more expeditiou sly accessible . If you were prescribed medication s they have been directly submitted to your pharmacy on file. Please make sure you finish all your medication s and if you develop major side effects related to them please do stop taking them and check with your PCP to see if you need to get an alternativ e medication . if you had any laboratory testing or XRAYs done at today's visit, please make sure you obtain your results from us tomorrow or the time frame discussed at your visit, you may also follow up with your PCP for test results. [id number] FELICE DOAN NP [address] [address] 02/19/2022 09:10:01 02/19/2022 10:03:35 Seasonal allergic rhinitis 599509255 J30.2 Just recovered from COVID less than 90 days ago. Advised unlikely to have contracted COVID again so soon. H&P today consistent with that of seasonal allergies. Advised Flonase and Marina pot to help with the symptoms. Follow-up with PCP if symptoms persist or worsening. Patient agrees with plan of care. [id number] THOMAS MCMAHON PA-C [address] [place] [address] 06/13/2022 15:22:55 06/13/2022 15:53:40 [id number] [facility] [address] [address] 06/28/2023 08:15:38 06/28/2023 08:52:44 Acute bronchitis 36059232 J20.9 Bronchitis bronchioli tis possible atypical pneumonia ongoing symptoms 3 weeks we will check COVID as he has had exposure. He will restart his albuterol twice a day for the next several days and a prescripti on as below. See additional instructio ns listedstop smoking [id number] WILI Kincaid [facility] [address] [address] 12/05/2023 14:54:27 12/05/2023 15:36:26 Diarrhea 52503092 R19.7 48 hours improving without point abdominal pain fever or vomiting. Patient is well-hydra eva tolerating p.o. He will take Imodium if needed see additional patient instructio ns below [id number] FELICE DOAN NP [facility] [address] [address] 07/28/2024 16:00:20 07/28/2024 17:05:59 Sprain of hand [id number] S63.91XA Already imaged in ER and was neg for fracture. Advised likely sprain. Patient is concerned that the physicalit y of his job will cause his sprain to worsen and states that he would be unable to perform his duties without full use of both his hands. Given note for work, out until cleared by PCP or ortho. Advised he already has a referral from the ED for his hand to [facility] ortho and may call their office for f/u evaluation . Patient agrees with plan as above. [id number] W[facility]I [facility]AC[facility] [address], [address] [place] [address] 07/30/2024 10:00:29 07/30/2024 10:56:25 Pain in right hand [id number] 86903 M79.641 34-year-ol d male presents today with right dorsal ulnar-side d wrist pain sustained when carrying boxes and falling on his right hand while at work on 07-24-2024 . He is not filing for Worker's Compensati on. He works at [employer]. X-rays were negative for fracture. He is tender along the fifth metacarpal shaft. Extensor and flexor mechanisms appear to be intact. There is no overt malrotatio n or finger deformity. No gross neurovascu lar deficits distally. Compartmen ts are soft. He likely has a contusion. He is requesting a splint. Orthotic splint was provided today. He will monitor symptoms and follow-up with me in 2 to 3 weeks. [id number] [facility] [address] [place] [address] 08/13/2024 14:43:16 08/13/2024 15:48:37 Pain in right hand [id number] M79.641 34-year-ol d male presents today with right dorsal ulnar-side d wrist pain sustained when carrying boxes and falling on his right hand while at work on 07-24-2024 . He is not filing for Worker's Compensati on. He works at [employer]. X-rays were negative for fracture. He is tender along the fifth metacarpal shaft. Extensor and flexor mechanisms appear to be intact. There is no overt malrotatio n or finger deformity. No gross neurovascu lar deficits distally. Compartmen ts are soft. He likely has a contusion. He is requesting a splint. Orthotic splint was provided today. He will monitor symptoms and follow-up with me in 2 to 3 weeks. 08-13-24Pa tana presents today to follow up on his right wrist. Overall he is doing well. His pain has improved. He has no appreciabl e tenderness or swelling. He is ranging his wrist and hand well. No gross neurovascu lar deficits distally. I have no acute concerns today. We agreed he can monitor symptoms and f/u with me on an as needed basis. [id number] Clotilde Moctezuma NP [facility] [address] [place] [address] 10/30/2024 08:21:30 10/30/2024 10:56:55 Acute upper respiratory infection [id number] J06.9 - exam WNl, vss- send out covid completed- flu deferred, no bodyaches or fevers- consistent with viral infection- increase fluids- otc cough/cold medication s- f/u if not improving/ worsening for further evaluation of symptoms [id number] WILI LICEA [facility] [address] [facility] [place] [address] 02/05/2025 15:39:46 02/05/2025 16:40:48 Essential hypertension [id number] I10 Pt denies chest pain, shortness of breath, headache, vision changes or edemaUsing med as prescribed BP is at goal todayWell controlled Generalize d anxiety disorder [id number] F41.1 Taking med as prescribed Current dose is effectiveN o anxiety affecting quality of lifeWell controlled Hypertriglyceridemia 302 176721 E78.1 No changes in diet or lifestyleP t taking fenofibrat e as prescribed Will draw lipid panel and f/u on results PRN Primary insomnia 4385036 F51.01 Patient states trazodone was not helpful in the beginning but states it has been effective recently Will maintain current prescripti on Will follow-up at CPE Schizophre tomas disorders [id number] F20.9 Patient reports symptoms are well-contr olled at this time [facility] in [place] and will be getting his medication s through themWell-c ontrolled at this time Type 2 cristhian betes mellitus 93826342 E11.9 Taking med as prescribed A1c 7.2 today, FSBS 101Well-co ntrolled at this time, no changes in medication s indicated at this timeWill follow-up at CPE [id number] WILI LICEA [facility] [address] [facility] [place] [address] 02/18/2025 10:49:56 02/18/2025 11:39:32 General examination of patient [id number] Z00.00 Patient should discuss medical decisions with Health Care Proxy. Recommende d screenings included colonoscop y screening age 50, earlier based on family history/ri sk factors; bone density age 65, unless risk factors for earlier screening; The USPSTF recommends one time screening for hepatitis C virus (HCV) infection in adults aged 18 to 79 years. Reviewed vaccines and current recommenda tions. Basic health topics include aerobic exercise, importance of healthy/ba lanced diet and minimizing caffeine and alcohol. Administra tion of diphtheria, pertussis, and tetanus vaccine [id number] Z23 Last Tdap booster 10/22/2018 Advance care planning 71 9181006 Z71.89 HCP completed Depression screening 171 743937 Z13.31 PHQ 9 Score: 1 Result: negative Follow up plan: Managed by psych Essential hypertension 78968865 I10 Pt denies chest pain, shortness of breath, headache, vision changes or edemaUsing med as prescribed BP is at goal todayWell controlled Generalize d anxiety disorder 36076294 F41.1 Taking med as prescribed Current dose is effectiveN o anxiety affecting quality of lifeWell controlled Hypertriglyceridemia 302 526060 E78.1 No changes in diet or lifestyleP t taking fenofibrat e as prescribed Will draw lipid panel and f/u on results PRN Primary insomnia 9578277 F51.01 Patient states trazodone was not helpful in the beginning but states it has been effective recentlySl eeping much better at this timeWill maintain current prescripti onWill follow-up at [facility] Schizophre tomas disorders [id number] F20.9 Patient reports symptoms are well-contr olled at this timeCurren tly getting medication s from [facility] transferre d to [facility] in [place] , currently scheduling therapy visitsWell -control d at this time Type 2 cristhian betes mellitus 86221792 E11.9 Taking med as prescribed , has a lot of GI symptomsWi ll stop immediate release metformin, change to XRA1c 7.2 on 02/05/2025 , FSBS 101Diabeti c eye exam - due for examWell-c ontrolled at this time, no changes in medication s indicated at this timeWill follow-up in 6 mos Adult heal th examination 395042980 Z00.00 Viral screening 68550310 4 Z11.59 One time screen age 18-65 and/or high risk for disease. Vasectomy 94626914 Z30.0 9 Pt would like to discuss vasectomyR eferred to urology Eruption [id number] R21 Left dorsal wrist rashPt reports he had a hospital band on this wrist for over 2 mosWas prescribed a topical but it isn't helping, unsure whatWill send triamcinol one, pt to f/u INI Health Concerns Section Related Observation LastModified by Organization Detai ls LastModified Time None Recorded Concern Status LastModified by Organization Details LastModified Time None Recorded Advance Directives Directive N: Payers Insurance Date Sequence Insurance Name Policy Number Policy Sow Covered Member ID Sow Member ID Guarantor Name 02/04/2025 2 [place] Tobias Ledesma [id number] Tobias D Ledesma 02/04/2025 1 [facility] (HMO) [id number] Tobias Poon Ledesma [id number] Tobias D Ledesma 02/04/2025 1 [facility] [facility] (PP[place] [id number] Tobias Ledesma [id number] Tobias Poon Ledesma 02/19/2025 2 [place] [facility] Tobias D Ledesma [id number] Tobias D Ledesma 02/04/2025 1 [facility] (HMO) Tobias D Ledesma [id number] Tobias D Ledesma 02/04/2025 [employer] Tobias D Ledesma [employer] Tobias D Ledesma 02/19/2025 1 [facility] (MEDICAID HMO) [id number] Tobias D Ledesma [id number] Tobias D Ledesma 02/04/2025 [employer] Tobias D Ledesma [employer] Tobias D Ledesma Notes Date Note Type Note Provider Name and Address Organization Details Recorded Time 10/30/2024 text/html 34YOM presents with sinus pain. Pt states that X3 days with productive cough- did not go to work /sun. Pt states now sinus pain with pressure and rhinorrhea. Low grade temp patient presents with URI symptoms x3 days - cough, nasal congestion/sinus pressure. Feels worse on left side. Runny nose. No headaches. Temp <100. No sore throat. No n/v/d. Tx attempted: dayquil. Vanessa Martinez MD [address] [place] [address], [phone], [facility] 10/30/2024 21:30:29 02/05/2025 text/html Aida presents to the clinic today to establish care with this practice and with a new diagnosis of insulin-dependen t diabetes. Stephany Jackson MD [address] [place] [address], [phone], [facility] 02/07/2025 12:04:33 02/18/2025 text/html Tobias comes into the clinic today for his annual CPE. Sanjeevani Deolapure, MD [address] [place] [address], [phone], [facility] 02/18/2025 23:22:33
[2025-03-27] VITALS (7 sets, daily range): BP systolic 106–132; BP diastolic 69–97; PULSE 87–104; RESP 15–24; TEMP 36.7–36.8; O2SAT 94–100; BMI 24.4
--- NOTE | 2025-03-27 06:48 | P.CONAN_ITS ---
[facility] Active Problems Active Problems: All Active Problems Diabetes (Acute) New onset type 2 diabetes mellitus (Acute) Acute hypokalemia (Acute) Bipolar I disorder with catatonia (Acute) Past Medical History Medical History (Updated 02/11/25 @ 00:01 by Tristian Blanca) Acute hypokalemia Sepsis Acute hypoxemic respiratory failure Pneumonia Toxic metabolic encephalopathy Bipolar I disorder with catatonia Family History Family history of problems with anesthesia: No Surgical History Surgical History (Updated 02/02/25 @ 06:15 by Brianne Salmeron RN) History of appendectomy History of Problems with Anesthesia: No Social History Social History Household Members: Spouse and Children Household Members Other:: and 2 daughters Housing: House Do you presently have visiting nurse or other home services: No Unable to assess alcohol history related to: Unable to respond and Refusing to respond Patient Tobacco Use Status: Current everyday Tobacco user Tobacco use type: Cigarette Cigarette Packs Per Day: 1 Cigarettes Per Day: 20.0 e-Cigarette/Vaping Use: Former Use Second Hand Smoke Exposure: Yes (people smoking around him) Advance Directives: No Advance Directives Information Provided: Yes service: No Sexual orientation: Straight/Heterosexual Meds Allergies Allergy/AdvReac Type Severity Reaction Status Date / Time sertraline (From Zoloft) Allergy Unknown Verified 02/02/25 06:16 Home Medications ?Medication ?Instructions ?Recorded ?Confirmed ?Last Taken ?Type Jardiance 10 mg PO DAILY 02/25/2501/30 Unknown History Exam Height,Weight and Vital Signs: Height 6 ft 1 in Weight 84 kg Last Vital Signs Temp 98.1 F 03/27/25 06:15 Pulse 91 03/27/25 06:15 Resp 16 03/27/25 06:15 BP 132/96 H 03/27/25 06:15 Pulse Ox 100 03/27/25 06:15 O2 Del Method Room Air 03/27/25 06:15 Airway Mallampati Class: II TM Dist: >3cm Neck ROM: Full Heart: rrr Lungs: cta Assessment and Plan Assessment Anesthesia Assessment: Anesthesia Plan Discussed and Chart Reviewed Final Anesthetic Review Family History of Problems with Anesthesia: No History of Problems with Anesthesia: No NPO: Yes ASA Class: III Final Preanesthetic Review: No Changes in Pt Med Stat, Meds/Allgs Chart Reviewed and Consent Obtained/Reviewed Patient Risk: Intermediate Procedure Risk: Intermediate Anesthetic Plan Anesthetic Plan: GA Disposition: Standard PACU
[2025-03-27] MEDS: Lactated Ringers 1,000 ML 50 ML IVCONT (07:13)
--- NOTE | 2025-03-27 07:32 | MHC.SHP ---
Pre-Procedural Eval Section A - 24 Hr Update-Section A only Date of Service: 03/27/25 The patient is an INPATIENT: No Section B - Complete if H&P > 30 days Chief Complaint: depression Details of Present Illness: pt stable doing well no medical changes Allergies: Allergies Allergy/AdvReac Type Severity Reaction Status Date / Time sertraline (From Zoloft) Allergy Unknown Verified 02/02/25 06:16 Review of Systems Sugical H&P ROS: Negative: Constitution, Cardiovascular, Respiratory, Neurological and Psychiatric Exam Surgical H&P Exam: Normal: Heart, Normal: Lungs and Normal: Neurological Plan Diagnosis/Plan: Unchanged I have reviewed the history and physical and performed a pertinent physical examination on my patient. No changes have occurred unless specified. Time Spent With Patient Time: Total time managing care of this patient today ____ minutes.
--- NOTE | 2025-03-27 07:33 | HO.ECTPROC ---
ECT Procedure Note Diagnosis/Treatment Date of Service: 03/27/25 Diagnosis: Bipolar disorder Previous ECT Date: 02/02/25 Treatment: Maintenance Interval Clinical Notes: Pt feeling quite stable no c/o side effects no mirza no manic or dep sx Time: Total time managing care of this patient today ____ minutes. ECT Settings Device: THYMATRON DGx Electrode Placement: Bifrontal Program/Pulse Width: 0.25 Energy Percent: 80 Seizure Duration By EEG (in seconds): 62 Medications Administration General Anesthetic: Etomidate (18) Muscle Relaxant: Succinylcholine (140) Ancillary Medications Miscillaneous Medications: Midazolam (2) Airway Management Airway Management: Bag Mask Ventilation Treatment Recommendations Energy Percent: 70 Notes: RTC 4nweeks for next maintenance ECT Pt Tolerated Procedure w/o Issue: Yes
== END 2025-03-27 08:45 | disposition home or self-care (01) ==
PROVIDERS: Visit Provider Psychiatry & Neurology Psychiatry
PROC: (CPT 90870; principal; 2025-03-27 07:30)
DX: F31.9 Bipolar disorder, unspecified (principal); E11.9 Type 2 diabetes mellitus without complications; E87.6 Hypokalemia; Z79.84 Long term (current) use of oral hypoglycemic drugs; Z88.8 Allergy status to other drugs, medicaments and biological substances; F17.210 Nicotine dependence, cigarettes, uncomplicated
CPT/HCPCS: 90870; J0330; J1596; J1805; J2250; J2704

== ENCOUNTER → 2025-03-27 05:59 | Outpatient (BNV) | payer OTHER, SELFPAY | PROVIDERS: Visit Provider Psychiatry & Neurology Psychiatry | DX: F31.4 Bipolar disorder, current episode depressed, severe, without psychotic features (principal) | CPT/HCPCS: 90870 ==

== ENCOUNTER 2025-04-24 05:56 | Day surgery (SDC) | payer OTHER, SELFPAY ==
--- OUTSIDE RECORDS SUMMARY | 2025-03-31 14:20 | XMS_ITS | Referral Summary ---
Author Organization [facility] Address [address] [place] [address] Care Team Providers Care Acrobatic Dancer Name Role Phone Fred Negrete Primary Care Provider Medications * This document [...] 77 01/13/2015 8:58 AM EDT Temperature 36.6 C (97.9 F) 01/13/2015 8:58 AM EDT Respiratory Rate - - Oxygen Saturation - - Inhaled Oxygen Concentration - - Weight 66.7 kg (147 lb) 01/13/2015 8:58 AM EDT Height 154.9 cm (5' 1 ) 01/13/2015 8:58 AM EDT Body Mass Index 27.78 01/13/2015 8:58 AM EDT Plan of Treatment Not on file Insurance [employer] Care Teams Acrobatic Dancer Relationship Specialty Start Date End Date Fred Negrete DO [address] [place] [id number] PCP - General 11/20/24
--- OUTSIDE RECORDS SUMMARY | 2025-03-31 14:20 | XMS_ITS | Continuity of Care Document ---
Author Organization [facility] Address [address] [place] [address] [address] [place], [place] Phone [phone] Care Team Providers Care Inside Sales Assistant Name Role Phone Latha Mahajan NP Care Team Information Analysis Intern U navailable BALJEET MOTLEY M.D. Care Team Information Rec eiver Unavailable Latha Mahajan NP Primary Care Physician Unavailab le Social History Type Date Description Comments Sex Male Sex Unknown
--- OUTSIDE RECORDS SUMMARY | 2025-03-31 14:20 | XMS_ITS | Data Portability ---
Author Organization [place] - [facility] - [place] Address [address] [place] [address] Care Team Providers Care Field Rep Name Role Phone YO JUNG Primary Care Provider YO JUNG Referring Provider Assessment Encounter Date [...] s C virus Ab, serum 2024 025 [facility] Patient Reg, [address] [place], [address], 02/18/2025 15:12:07 CMP, serum or plasma 2024 025 [facility] Patient Reg, [address] , [place], [address], 02/18/2025 15:10:23 lipid panel, serum 2024 025 [facility] Patient Reg, [address], [place], [address], 02/18/2025 15:10:24 CBC w/ auto diff 2024 025 [facility] Patient Reg, [address] , [place], [address], 02/18/2025 15:26:29 TSH + free T4, serum 2024 025 [facility] Patient Reg, [address] , [place], [address], 02/18/2025 15:10:26 hemoglob in A1C, fingerst ick 2024 025 [facility] In-Office Order, Internal Use Only DO Not Attach Compendium DO Not Attach Compendium, Do Not Delete/merge, [id number] 02/05/2025 16:38:59 glucose, fingerst ick, blood 2024 025 [facility] In-Office Order, Internal Use Only DO Not Attach Compendium DO Not Attach Compendium, Do Not Delete/merge, 02/05/2025 16:41:56 SARS CoV 2 RNA (COVID-1 9), QL, core worker-PCR, respirat ory specimen 2024 025 [facility] (Outpatient Registration) , [address], [place], [address], 10/31/2024 10:01:38 Referral diabetic ophthalm ology referral 2024 [facility], [address] [place], [address], 03/09/2025 12:37:55 urologis t referral 2024 [facility], [address] [facility] [address], [place], [address], 02/25/2025 12:30:21 Procedures None recorded . Surgeries None recorded . Imaging None recorded . Medication Orders metformi n ER 500 mg tablet,e xtended release 24 hr 2024 [facility], [address] [place], [address], 02/19/2025 13:53:15 triamcin olone acetonid e 0.1 % topical cream 2024 025 [facility], [address] [place], [address], 02/18/2025 11:20:20 Patient TargetsNo targets recorded. Patient Instructions Encounter Date Encounter Id Patient Instructions Last Modified By Organization Details Last Modified Time 10/30/2024 [id number] You have had an Urgent Care Visit [...] 2 diabetes mellitus Referring Physician: Tim Godinez [facility], Encounter Date: 02/18/2025 Urologist Referral for Vasec chan Referring Physician: Tim Godinez [facility], Encounter Date: 02/18/2025 Results Created Date [...] and purif ied from nasop haryn geal (WIREWORKER), nasal , mid-t urbin ate, and oroph [...] Autho rizat ion (EUA) . Not Available [facility] Department [address] [place], [address] 10/31/2024 10:01:38 02/06/20 25 02/05/2025 gluco se, finge rstic k, blood Glucose Result- Ref Range (70 - 106 mg/dl) 101 Not Available In-Of fice Order Internal Use Only DO Not Attach Compendium DO Not Attach Compendium, Do Not Delete/merge, 02/05/2025 16:08:11 02/06/20 25 02/05/2025 gluco se, finge rstic k, blood Lot # [id number] S Not Available In-Office Order Internal Use [...] lobin A1C, finge rstic k Lot # [id number] Not Available In-Office Order Internal Use Only DO Not Attach Compendium DO Not Attach Compendium, Do Not Delete/merge, [id number] 02/05/2025 16:07:59 02/06/20 25 02/05/2025 hemog lobin A1C, finge rstic k Exp Date 027 Not Available In-Office Order Internal Use Only DO Not Attach Compendium DO Not Attach Compendium, Do Not Delete/merge, [id number] 02/05/2025 16:07:59 02/06/20 25 02/05/2025 hemog lobin A1C, finge rstic k Internal Control Valid Not Available In-Off ice Order Internal Use Only DO Not Attach Compendium DO Not Attach Compendium, Do Not Delete/merge, [id number] 02/05/2025 16:07:59 02/19/20 25 02/18/2025 COMPR EHENS NELY MET. PANEL sodium 136 mmol/ L 136-14 5 normal Not Available [facility] Department [address] [place] [address], [id number] 02/18/2025 15:10:23 02/19/20 25 02/18/2025 COMPR EHENS NELY MET. PANEL potassium 4.0 mmol/ L 3.5-5. 1 normal Not Available [facility] Department [address] [place] [address], 886[address] 02/18/2025 15:10:23 02/19/20 25 02/18/2025 COMPR EHENS NELY MET. PANEL chloride 102 mmol/ L 98-107 normal Not Available [facility] Department [address] [place] [address], 905[address] 02/18/2025 15:10:23 02/19/20 25 02/18/2025 COMPR EHENS NELY MET. PANEL carbon dioxide 22 mmol/ L 22-29 normal Not Available [facility] Department [address] [place] [address], 71031 02/18/2025 15:10:23 02/19/20 25 02/18/2025 COMPR EHENS NELY MET. PANEL anion gap 17 mmol/ L 10-20 normal Not Available [facility] Department [address] [place] [address], 33500 02/18/2025 15:10:23 02/19/20 25 02/18/2025 COMPR EHENS NELY MET. PANEL blood urea nitrogen 7 mg/dL 6-20 normal Not Available [facility] Department [address] [place], [address] 02/18/2025 15:10:23 02/19/20 25 02/18/2025 COMPR EHENS NELY MET. PANEL creatinine 0.93 mg/dL 0.67-1 .17 normal Not Available [facility] Department [address] [place], [address] 02/18/2025 15:10:23 02/19/20 25 02/18/2025 COMPR EHENS [...] under the age of 18. Not Available [facility] Department [address] [place], [address] 02/18/2025 15:10:23 02/19/20 25 02/18/2025 COMPR EHENS NELY MET. PANEL glucose 85 mg/dL 70-106 normal Not Available [facility] Department [address] [place], [address] 02/18/2025 15:10:23 02/19/20 25 02/18/2025 COMPR EHENS NELY MET. PANEL calcium 10.2 mg/dL 8.6-10 .3 normal Not Available [facility] Department [address] [place], [address] 02/18/2025 15:10:23 02/19/20 25 02/18/2025 COMPR EHENS NELY MET. PANEL bilirubin total 0.3 mg/dL 0.2-1. 2 normal Not Available [facility] Department [address] [place], [address] 02/18/2025 15:10:23 02/19/20 25 02/18/2025 COMPR EHENS NELY MET. PANEL aspartate amino transferase 29 U/L 5-40 normal Not Available [facility] Department [address] [place], [address] 02/18/2025 15:10:23 02/19/20 25 02/18/2025 COMPR EHENS NELY MET. PANEL alanine aminotransfe rase 47 U/L 5-41 high Not Available [facility] Department [address] [place], [address] 02/18/2025 15:10:23 02/19/20 25 02/18/2025 COMPR EHENS NELY MET. PANEL total protein 7.2 g/dL 6.4-8. 3 normal Not Available [facility] Department [address] [place], [address] 02/18/2025 15:10:23 02/19/20 25 02/18/2025 COMPR EHENS NELY MET. PANEL albumin level 5.0 g/dL 3.5-5. 2 normal Not Available [facility] Department [address] [place], [address] 02/18/2025 15:10:23 02/19/20 25 02/18/2025 COMPR EHENS NELY MET. PANEL globulin 2.3 gm/dL 2.0-3. 5 normal Not Available [facility] Department [address] [place], [address] 02/18/2025 15:10:23 02/19/20 25 02/18/2025 COMPR EHENS NELY MET. PANEL albumin globulin ratio 2.2 % 1.1-2. 5 normal Not Available [facility] Department [address] [place], [address] 02/18/2025 15:10:23 02/19/20 25 02/18/2025 COMPR EHENS NELY MET. PANEL alkaline phosphatase 61 U/L 40-129 normal Not Available [facility] Department [address] [place], [address] 02/18/2025 15:10:23 02/19/20 25 02/18/2025 LIPID PANEL WITH REFLE X triglyceride s 293 mg/dL 30-150 high Refer ence Range s: <150 mg/dl Maxine l 150-1 99 mg/dl Borde rline High 200-4 99 mg/dl High >500 mg/dl Very High Not Available [facility] Department [address] [place], [address] 02/18/2025 15:10:24 02/19/20 25 02/18/2025 LIPID PANEL WITH REFLE X cholesterol 178 mg/dL 100-20 0 normal Not Available [facility] Department [address] [place], [address] 02/18/2025 15:10:24 02/19/20 25 02/18/2025 LIPID PANEL WITH REFLE X LDL cholesterol direct TNP mg/dL 0-100 Not Available [facility] Department [address] [place], [address] 02/18/2025 15:10:24 02/19/20 25 02/18/2025 LIPID PANEL [...] mg/dL Very high >190 mg/dL Not Available [facility] Department [address] [place], [address] 02/18/2025 15:10:24 02/19/20 25 02/18/2025 LIPID PANEL WITH REFLE X HDL cholesterol 39.9 mg/dL 40-60 low Major risk facto r for CHD: <40 mg/dL Negat nely risk facto r for CHD: >=60 mg/dL Not Available [facility] Department [address] [place], [address] 02/18/2025 15:10:24 02/19/20 25 02/18/2025 LIPID PANEL WITH REFLE X chol HDL ratio 4.46 Risk CHOL/ HDL CHOL/ HDL Ratio Male Femal e 1/2 AVERA GE 3.43 3.27 AVERA GE 4.97 4.44 2 X AVERA GE 9.55 7.05 3 X AVERA GE 23.39 11.04 Not Available [facility] Department [address] [place] [address], 98464 02/18/2025 15:10:24 02/19/20 25 02/18/2025 TSH REFLE X FREE T4 free T4 (free thyroxine) TNP NG/dL 0.9-1. 7 Not Available [facility] Department [address] [place] [address], 960[address] 02/18/2025 15:10:26 02/19/20 25 02/18/2025 TSH REFLE X FREE T4 TSH reflex free T4 1.32 uIU/m L 0.27-4 .20 normal Not Available [facility] Department [address] [place] [address], 30684 02/18/2025 15:10:26 02/19/20 25 02/18/2025 HEPAT ITIS C ANTIB MARC hepatitis C virus antibody NONREA CTIVE nonrea ctive Nonre activ e/Ant ibodi es to HCV not detec eva; does not exclu de early acute HCV infec tion Not Available [facility] Department [address] [place] [address], 18055 02/18/2025 15:12:07 02/19/20 25 02/18/2025 COMPL ETE BLOOD COUNT AUTO DIFF white blood count 10.37 K/uL 3.5-11 .0 normal Not Available [facility] Department [address] [place] [address], 87391 02/18/2025 15:26:29 02/19/20 25 02/18/2025 COMPL ETE BLOOD COUNT AUTO DIFF red blood count 4.66 M/uL 3.90-5 .50 normal Not Available [facility] Department [address] [place] [address], 45511 02/18/2025 15:26:29 02/19/20 25 02/18/2025 COMPL ETE BLOOD COUNT AUTO DIFF hemoglobin 15.5 g/dL 14.0-1 8.0 normal Not Available [facility] Department [address] [place] [address], 91632 02/18/2025 15:26:29 02/19/20 25 02/18/2025 COMPL ETE BLOOD COUNT AUTO DIFF hematocrit 44.1 % 42.0-5 4.0 normal Not Available [facility] Department [address] [place], [address] 02/18/2025 15:26:29 02/19/20 25 02/18/2025 COMPL ETE BLOOD COUNT AUTO DIFF mean corpuscular volume 94.6 fL 80.0-1 00.0 normal Not Available [facility] Department [address] [place] [address], 31428 02/18/2025 15:26:29 02/19/20 25 02/18/2025 COMPL ETE BLOOD COUNT AUTO DIFF mean corpuscular hemoglobin 33.3 pg 25.4-3 4.6 normal Not Available [facility] Department [address] [place] [address], 64076 02/18/2025 15:26:29 02/19/2002/18/2025 COMPL ETE BLOOD COUNT AUTO DIFF mean corpuscular HGB conc 35.1 g/dL 31.0-3 7.0 normal Not Available [facility] Department [address] [place] [address], 93650 02/18/2025 15:26:29 02/19/20 25 02/18/2025 COMPL ETE BLOOD COUNT AUTO DIFF red cell distribution width 14.1 % 11.5-1 4.5 normal Not Available [facility] Department [address] [place] [address], 86321 02/18/2025 15:26:29 02/19/20 25 02/18/2025 COMPL ETE BLOOD COUNT AUTO DIFF platelet count 252 K/uL 150-40 0 normal Not Available [facility] Department [address] [place] [address], 11041 02/18/2025 15:26:29 02/19/20 25 02/18/2025 COMPL ETE BLOOD COUNT AUTO DIFF neutrophils percent auto 66.6 % 35.0-6 6.0 high Not Available [facility] Department [address] [place] [address], 66964 02/18/2025 15:26:29 02/19/20 25 02/18/2025 COMPL ETE BLOOD COUNT AUTO DIFF imm gran pct auto 0.3 % 0.0-0. 6 normal Not Available [facility] Department [address] [place] [address], 78037 02/18/2025 15:26:29 02/19/20 25 02/18/2025 COMPL ETE BLOOD COUNT AUTO DIFF lymphocytes percent auto 26.1 % 25.0-4 5.0 normal Not Available [facility] Department [address] [place] [address], 18620 02/18/2025 15:26:29 02/19/20 25 02/18/2025 COMPL ETE BLOOD COUNT AUTO DIFF monocytes percent auto 4.2 % 0.0-13 .0 normal Not Available [facility] Department [address] [place] [address], 83629 02/18/2025 15:26:29 02/19/20 25 02/18/2025 COMPL ETE BLOOD COUNT AUTO DIFF eosinophils percent auto 2.4 % 0.0-8. 0 normal Not Available [facility] Department [address] [place] [address], 09841 02/18/2025 15:26:29 02/19/20 25 02/18/2025 COMPL ETE BLOOD COUNT AUTO DIFF basophils percent auto 0.4 % 0.0-1. 0 normal Not Available [facility] Department [address] [place] [address], 67920 02/18/2025 15:26:29 02/19/20 25 02/18/2025 COMPL ETE BLOOD COUNT AUTO DIFF NRBC pct auto 0.0 /100_ WBC 0.0 normal Not Available [facility] Department [address] [place] [address], 16861 02/18/2025 15:26:29 02/19/20 25 02/18/2025 COMPL ETE BLOOD COUNT AUTO DIFF neutrophils absolute auto 6.90 K/uL 1.5-7. 5 normal Not Available [facility] Department [address] [place] [address], 20652 02/18/2025 15:26:29 02/19/20 25 02/18/2025 COMPL ETE BLOOD COUNT AUTO DIFF imm gran abs auto 0.03 K/uL 0.00-0 .09 normal Not Available [facility] Department [address] [place] [address], 86012 02/18/2025 15:26:29 02/19/20 25 02/18/2025 COMPL ETE BLOOD COUNT AUTO DIFF lymphocytes absolute auto 2.71 K/uL 0.8-4. 8 normal Not Available [facility] Department [address] [place] [address], 71788 02/18/2025 15:26:29 02/19/20 25 02/18/2025 COMPL ETE BLOOD COUNT AUTO DIFF monocytes absolute auto 0.44 K/uL 0.4-1. 3 normal Not Available [facility] Department [address] [place] [address], 57009 02/18/2025 15:26:29 02/19/20 25 02/18/2025 COMPL ETE BLOOD COUNT AUTO DIFF eosinophils absolute auto 0.25 K/uL 0.0-0. 8 normal Not Available [facility] Department [address] [place] [address], 40515 02/18/2025 15:26:29 02/19/20 25 02/18/2025 COMPL ETE BLOOD COUNT AUTO DIFF basophils absolute auto 0.04 K/uL 0.0-0. 6 normal Not Available [facility] Department [address] [place] [address], 83441 02/18/2025 15:26:29 02/19/20 25 02/18/2025 COMPL ETE BLOOD COUNT AUTO DIFF NRBC abs auto 0.00 K/uL 0.00 normal Not Available [facility] Department [address] [place] [address], 60551 02/18/2025 15:26:29 02/20/20 25 02/19/2025 COMPL ETE BLOOD COUNT AUTO DIFF white blood count 12.56 K/uL 3.5-11 .0 high Not Available [facility] Department [address] [place] [address], 19316 02/19/2025 10:15:17 02/20/20 25 02/19/2025 COMPL ETE BLOOD COUNT AUTO DIFF red blood count 4.84 M/uL 3.90-5 .50 normal Not Available [facility] Department [address] [place] [address], 64355 02/19/2025 10:15:17 02/20/20 25 02/19/2025 COMPL ETE BLOOD COUNT AUTO DIFF hemoglobin 16.0 g/dL 14.0-1 8.0 normal Not Available [facility] Department [address] [place] [address], 39064 02/19/2025 10:15:17 02/20/20 25 02/19/2025 COMPL ETE BLOOD COUNT AUTO DIFF hematocrit 46.5 % 42.0-5 4.0 normal Not Available [facility] Department [address] [place] [address], 75955 02/19/2025 10:15:17 02/20/20 25 02/19/2025 COMPL ETE BLOOD COUNT AUTO DIFF mean corpuscular volume 96.1 fL 80.0-1 00.0 normal Not Available [facility] Department [address] [place] [address], 43691 02/19/2025 10:15:17 02/20/20 25 02/19/2025 COMPL ETE BLOOD COUNT AUTO DIFF mean corpuscular hemoglobin 33.1 pg 25.4-3 4.6 normal Not Available [facility] Department [address] [place] [address], 32798 02/19/2025 10:15:17 02/20/2002/19/2025 COMPL ETE BLOOD COUNT AUTO DIFF mean corpuscular HGB conc 34.4 g/dL 31.0-3 7.0 normal Not Available [facility] Department [address] [place] [address], 13310 02/19/2025 10:15:17 02/20/20 25 02/19/2025 COMPL ETE BLOOD COUNT AUTO DIFF red cell distribution width 14.9 % 11.5-1 4.5 high Not Available [facility] Department [address] [place] [address], 87862 02/19/2025 10:15:17 02/20/20 25 02/19/2025 COMPL ETE BLOOD COUNT AUTO DIFF platelet count 266 K/uL 150-40 0 normal Not Available [facility] Department [address] [place] [address], 24742 02/19/2025 10:15:17 02/20/20 25 02/19/2025 COMPL ETE BLOOD COUNT AUTO DIFF neutrophils percent auto 67.6 % 35.0-6 6.0 high Not Available [facility] Department [address] [place] [address], 77376 02/19/2025 10:15:17 02/20/20 25 02/19/2025 COMPL ETE BLOOD COUNT AUTO DIFF lymphocytes percent auto 25.0 % 25.0-4 5.0 normal Not Available [facility] Department [address] [place] [address], 93948 02/19/2025 10:15:17 02/20/20 25 02/19/2025 COMPL ETE BLOOD COUNT AUTO DIFF monocytes percent auto 5.1 % 0.0-13 .0 normal Not Available [facility] Department [address] [place] [address], 90646 02/19/2025 10:15:17 02/20/20 25 02/19/2025 COMPL ETE BLOOD COUNT AUTO DIFF eosinophils percent auto 2.1 % 0.0-8. 0 normal Not Available [facility] Department [address] [place] [address], 67554 02/19/2025 10:15:17 02/20/20 25 02/19/2025 COMPL ETE BLOOD COUNT AUTO DIFF basophils percent auto 0.2 % 0.0-1. 0 normal Not Available [facility] Department [address] [place] [address], 44076 02/19/2025 10:15:17 02/20/20 25 02/19/2025 COMPL ETE BLOOD COUNT AUTO DIFF neutrophils absolute auto 8.49 K/uL 1.5-7. 5 high Not Available [facility] Department [address] [place] [address], 76032 02/19/2025 10:15:17 02/20/20 25 02/19/2025 COMPL ETE BLOOD COUNT AUTO DIFF lymphocytes absolute auto 3.14 K/uL 0.8-4. 8 normal Not Available [facility] Department [address] [place] [address], 06816 02/19/2025 10:15:17 02/20/20 25 02/19/2025 COMPL ETE BLOOD COUNT AUTO DIFF monocytes absolute auto 0.64 K/uL 0.4-1. 3 normal Not Available [facility] Department [address] [place] [address], 12362 02/19/2025 10:15:17 02/20/20 25 02/19/2025 COMPL ETE BLOOD COUNT AUTO DIFF eosinophils absolute auto 0.27 K/uL 0.0-0. 8 normal Not Available [facility] Department [address] [place] [address], 88061 02/19/2025 10:15:17 02/20/20 25 02/19/2025 COMPL ETE BLOOD COUNT AUTO DIFF basophils absolute auto 0.02 K/uL 0.0-0. 6 normal Not Available [facility] Department [address] [place], [address] 02/19/2025 10:15:17 02/20/20 25 02/19/2025 LITHI UM lithium 0.9 mmol/ L 0.6-1. 2 normal Not Available [facility] Department [address] [place] [address], 89274 02/19/2025 10:38:28 02/20/20 25 02/19/2025 COMPR EHENS NELY MET. PANEL sodium 139 mmol/ L 136-14 5 normal Not Available [facility] Department [address] [place] [address], 44815 02/19/2025 10:41:02 02/20/20 25 02/19/2025 COMPR EHENS NELY MET. PANEL potassium 3.6 mmol/ L 3.5-5. 1 normal Not Available [facility] Department [address] [place] [address], 97297 02/19/2025 10:41:02 02/20/20 25 02/19/2025 COMPR EHENS NELY MET. PANEL chloride 101 mmol/ L 98-107 normal Not Available [facility] Department [address] [place] [address], 17971 02/19/2025 10:41:02 02/20/20 25 02/19/2025 COMPR EHENS NELY MET. PANEL carbon dioxide 24 mmol/ L 22-29 normal Not Available [facility] Department [address] [place] [address], 98813 02/19/2025 10:41:02 02/20/20 25 02/19/2025 COMPR EHENS NELY MET. PANEL anion gap 18 mmol/ L 10-20 normal Not Available [facility] Department [address] [place] [address], 74092 02/19/2025 10:41:02 02/20/20 25 02/19/2025 COMPR EHENS NELY MET. PANEL blood urea nitrogen 7 mg/dL 6-20 normal Not Available [facility] Department [address] [place] [address], 48060 02/19/2025 10:41:02 02/20/20 25 02/19/2025 COMPR EHENS NELY MET. PANEL creatinine 1.04 mg/dL 0.67-1 .17 normal Not Available [facility] Department [address] [place] [address], 72052 02/19/2025 10:41:02 02/20/20 25 02/19/2025 COMPR EHENS [...] under the age of 18. Not Available [facility] Department [address] [place], [address] 02/19/2025 10:41:02 02/20/20 25 02/19/2025 COMPR EHENS NELY MET. PANEL glucose 94 mg/dL 70-106 normal Not Available [facility] Department [address] [place], [address] 02/19/2025 10:41:02 02/20/20 25 02/19/2025 COMPR EHENS NELY MET. PANEL calcium 10.2 mg/dL 8.6-10 .3 normal Not Available [facility] Department [address] [place], [address] 02/19/2025 10:41:02 02/20/20 25 02/19/2025 COMPR EHENS NELY MET. PANEL bilirubin total 0.4 mg/dL 0.2-1. 2 normal Not Available [facility] Department [address] [place], [address] 02/19/2025 10:41:02 02/20/20 25 02/19/2025 COMPR EHENS NELY MET. PANEL aspartate amino transferase 25 U/L 5-40 normal Not Available [facility] Department [address] [place], [address] 02/19/2025 10:41:02 02/20/20 25 02/19/2025 COMPR EHENS NELY MET. PANEL alanine aminotransfe rase 40 U/L 5-41 normal Not Available [facility] Department [address] [place], [address] 02/19/2025 10:41:02 02/20/20 25 02/19/2025 COMPR EHENS NELY MET. PANEL total protein 7.8 g/dL 6.4-8. 3 normal Not Available [facility] Department [address] [place] [address], 64426 02/19/2025 10:41:02 02/20/20 25 02/19/2025 COMPR EHENS NELY MET. PANEL albumin level 5.2 g/dL 3.5-5. 2 normal Not Available [facility] Department [address] [place] [address], 47443 02/19/2025 10:41:02 02/20/20 25 02/19/2025 COMPR EHENS NELY MET. PANEL globulin 2.6 gm/dL 2.0-3. 5 normal Not Available [facility] Department [address] [place] [address], 31474 02/19/2025 10:41:02 02/20/20 25 02/19/2025 COMPR EHENS NELY MET. PANEL albumin globulin ratio 2.0 % 1.1-2. 5 normal Not Available [facility] Laboratory Department [address] [place] [address], [id number] 02/19/2025 10:41:02 02/20/20 25 02/19/2025 COMPR EHENS NELY MET. PANEL alkaline phosphatase 70 U/L 40-129 normal Not Available [facility] Laboratory Department [address] [place] [address], [address] 02/19/2025 10:41:02 Result Notes None recorded. Problems Name Problem SNOMED Code Status Onset Date Resolution Date Notes Provider Name and Address Organization Details Recorded Time Hypertriglycer idemia 142887882 Active 2024 WILI LICEA [address] [place] [address] [place], [address], [facility] 21:44:49 Generalized anxiety disorder 52921805 Active 2024 WILI LICEA [address] [place] [address], [address], [facility] 21:45:23 Schizophrenic disorders 196632695 Active 2024 WILI LICEA [address] [place] [address] [place], [address], [facility] 21:45:54 Type 2 diabetes mellitus 06623298 Active 2024 IWLI LICEA [address] [place] [address] [place], [address], [facility] 21:46:31 Essential hypertension 28786539 Active 2024 WILI LICEA [address] [place] [address] [place], [address], [facility] 21:47:09 Primary insomnia 1532876 Active 2024 WILI LICEA [address] [place] [address], [address], [facility] 21:47:30 Problem Notes None recorded. Procedures Surgical History Date Name Laterality Status Provider Name and Address Organization Details Recorded Time 07/28/20 Tobacco (smoking) Cessation completed COLTON DOAN NP [address] [place] [address], [phone], [facility] 07/28/2024 16:32:41 Imaging Results None recorded. Procedure Notes None recorded. Medical Equipment None Reported. Allergies Allergen ID Allergen Name Allergen Category Reaction Reaction Severity Criticality Documentation Date Start Date Code Code System Note Provider Name and Address Organization Details Recorded Time 681006 Zoloft medicatio n other severe Not available 08/08/2021 75478 [facility] 13:35:03 Medications Name Sig Start Date Stop [...] /min 118 mm[Hg] 70 mm[Hg] Mariaelena Turner [facility] 5 08:50:08 Date Recorded Body height Body mass index (BMI) Body weight Heart rate Oxygen saturation Oxygen saturation in Arterial blood by Pulse oximetry Systolic blood pressure Diastolic blood pressure Provider Name and Address Organization Details Last Updated DateTime 5 185.42 cm 27.1 kg/m2 28762.2 4 g 98 /min 97 % 97 % 118 mm[Hg] 80 mm[Hg] Khalida Kaplan ARTUR [facility] 16:00:44 Date Recorded Body height Body mass index (BMI) Body weight Heart rate Oxygen saturation Oxygen saturation in Arterial blood by Pulse oximetry Systolic blood pressure Diastolic blood pressure Provider Name and Address Organization Details Last Updated DateTime 181.86 cm 27.3 kg/m2 92715.5 8 g 93 /min 99 % 99 % 110 mm[Hg] 82 mm[Hg] Khalida ARTUR Kaplan [facility] 11:02:50 Social History Question Answer Notes LastModified by Organization Details LastModified Time Tobacco Smoking Status Current Every Day Smoker COLTON DOAN NP [address] [place] [address], [phone], [facility] 07/28/2024 16:32:10 Do You Have An Advance Directive? No Information not available 02/05/2025 Are You Blind Or Do You Have Difficulty Seeing? No Information not available 02/05/2025 Is Blood Transfusion Acceptable In An Emergency? Yes Information not available 02/05/2025 What Is Your Level Of Caffeine Consumption? Moderate Information not available 02/05/2025 Are You A Caregiver? Yes Information not available 02/05/2025 What Type Of Data Systems Analyst Do You Use? None Information not available [...] Or The Highest Degree You Have Received? [id number] May Try For Disability Information not available [...] anxious, or unable to sleep at night)? [id number] Trazodone just starting to work Information not [...] Recorded Time Tdap 10/22/2018 completed Not Available [facility] 02/18/2025 10:50:34 Influenza, split virus, trivalent, PF 06/15/2020 completed Not Available [facility] 2024 10:50:34 COVID-19, mRNA, LNP-S, bivalent, PF, 50 mcg/0.5 mL or 25mcg/0.25 mL dose 08/10/2022 completed Not Available [facility] 5 10:50:34 COVID-19, mRNA, LNP-S, PF, 100 mcg/0.5mL dose or 50 mcg/0.25mL dose 02/20/2021 completed Not Available [facility] 5 10:50:34 COVID-19, mRNA, LNP-S, PF, 100 mcg/0.5mL dose or 50 mcg/0.25mL dose 01/23/2021 completed Not Available [facility] 5 10:50:34 Past Encounters Encounter ID Performer Location Encounter Start Date Encounter Closed Date Diagnosis/Indication Diagnosis SNOMED-CT Code Diagnosis ICD10 Code Diagnosis Note [id number] [facility] [address] [place] [address] 11/30/2016 19:27:33 11/30/2016 20:11:44 Upper respiratory infection 95416875 J06.9 Pt with cough, body aches, sore throat with normal exam. Negative rapid flu and negative rapid strep. Advised likely viral self-resol ving illness. Advised rest, fluids, tylenol/ib uprofen PRN. Follow up in 5-7 days if not improving or sooner if worsening. Acute pharyngitis 634364 003 J02.9 Rapid strep negative, culture pending. Supportive care with rest, fluids, salt water gargles, Ibuprofen/ Tylenol PRN. Follow-up in 2-3 days if not improving or sooner if worsening. [id number] [facility] [address] [place] [phone] 06/21/2017 10:19:23 06/21/2017 11:26:05 Lightheadedness 358732185 R42 Pt states last night felt like the room was spinni ng and had to sit. Resolved on it's own after about 5minutes. Since then no dizziness just ongoing lightheade dness. Previous normal workup through PCP with chief information security officer and labs due to ongoing lightheade dness [...] sudden worsening symptoms advised ED evaluation Dizziness 318722322 R42 [id number] WILI [facility] [address] [place] [address] 06/10/2019 12:47:45 06/10/2019 14:37:21 [id number] FELICE DOAN NP [facility] [address] [address] 08/08/2021 12:56:12 08/08/2021 15:09:03 Cough 66874405 R05.9 Symptoms nearly nearly resolved per patient and had a negative Covid test already. [facility] employer requires him to have a note to return to work. Will provide with return to work note as below. [id number] WILI KAUFMAN [facility] [address] [address] 08/12/2021 16:40:20 08/12/2021 17:18:43 Postviral cough 953811075 R05.9 31 y/o afebrile, non toxic or [...] up with your PCP for test results. [id number] FELICE DOAN NP [address] [address] 02/19/2022 09:10:01 02/19/2022 10:03:35 Seasonal allergic rhinitis 209177708 J30.2 Just recovered from COVID less than 90 days ago. Advised unlikely to have contracted COVID again so soon. H&P today consistent with that of seasonal allergies. Advised Flonase and Marina pot to help with the symptoms. Follow-up with PCP if symptoms persist or worsening. Patient agrees with plan of care. [id number] THOMAS MCMAOHN PA-C [address] [place] [address] 06/13/2022 15:22:55 06/13/2022 15:53:40 [id number] [facility] [address] [address] 06/28/2023 08:15:38 06/28/2023 08:52:44 Acute bronchitis 93950256 J20.9 Bronchitis bronchioli tis possible atypical pneumonia ongoing symptoms 3 weeks we will check COVID as he has had exposure. He will restart his albuterol twice a day for the next several days and a prescripti on as below. See additional instructio ns listedstop smoking [id number] WILI Kincaid [facility] [address] [address] 12/05/2023 14:54:27 12/05/2023 15:36:26 Diarrhea 30383369 R19.7 48 hours improving without point abdominal pain fever or vomiting. Patient is well-hydra eva tolerating p.o. He will take Imodium if needed see additional patient instructio ns below [id number] FELICE DOAN NP [facility] [address] [address] 07/28/2024 16:00:20 07/28/2024 17:05:59 Sprain of hand 20192035 S63.91XA Already imaged in ER and was [...] from the ED for his hand to [facility] ortho and may call their office for f/u evaluation . Patient agrees with plan as above. [id number] WILI [facility]AC[facility] [address], [address] [place] [address] 07/30/2024 10:00:29 07/30/2024 10:56:25 Pain in right hand 8965531153 64693 M79.641 34-year-ol d male presents today with right dorsal ulnar-side d wrist pain sustained when carrying boxes and falling on his right hand while at work on 07-24-2024 . He is not filing for Worker's Compensati on. He works at [employer]. X-rays were negative for fracture. He is [...] with me in 2 to 3 weeks. [id number] WILI [facility]ACO [facility] [address] [place] [address] 08/13/2024 14:43:16 08/13/2024 15:48:37 Pain in right hand 0875155391 80941 M79.641 34-year-ol d male presents today with right dorsal ulnar-side d wrist pain sustained when carrying boxes and falling on his right hand while at work on 07-24-2024 . He is not filing for Worker's Compensati on. He works at [employer]. X-rays were negative for fracture. He is [...] with me on an as needed basis. [id number] Clotilde Moctezuma NP [facility] [place] [address] [place] [address] 10/30/2024 08:21:30 10/30/2024 10:56:55 Acute upper respiratory infection 86481842 J06.9 - exam WNl, vss- send out covid completed- flu deferred, no bodyaches or fevers- consistent with viral infection- increase fluids- otc cough/cold medication s- f/u if not improving/ worsening for further evaluation of symptoms [id number] WILI LICEA [facility] [address] [facility] [place] [address] 02/05/2025 15:39:46 02/05/2025 16:40:48 Essential hypertension 91462350 I10 Pt denies chest pain, shortness of breath, headache, vision changes or edemaUsing med as prescribed BP is at goal todayWell controlled Generalize d anxiety disorder 11366791 F41.1 Taking med as prescribed Current dose is effectiveN o anxiety affecting quality of lifeWell controlled Hypertriglyceridemia 302 707025 E78.1 No changes in diet or lifestyleP t taking fenofibrat e as prescribed Will draw lipid panel and f/u on results PRN Primary insomnia 9230639 F51.01 Patient states trazodone was not helpful in the beginning but states it has been effective recently Will maintain current prescripti on Will follow-up at CPE Schizophre tomas disorders 979459014 F20.9 Patient reports symptoms are well-contr olled at this time [facility] [employer] [facility] [place] and will be getting his medication s through themWell-c ontrolled at this time Type 2 cristhian betes mellitus 54529570 E11.9 Taking med as prescribed A1c 7.2 today, FSBS 101Well-co ntrolled at this time, no changes in medication s indicated at this timeWill follow-up at CPE [id number] WILI LICEA [facility] [address] [facility] [place] [address] 02/18/2025 10:49:56 02/18/2025 11:39:32 General examination of patient 424258299 Z00.00 Patient should discuss medical decisions with [...] tion of diphtheria, pertussis, and tetanus vaccine 934320592 Z23 Last Tdap booster 10/22/2018 Advance care planning 71 9932624 Z71.89 HCP completed Depression screening 171 034692 Z13.31 PHQ 9 Score: 1 Result: negative Follow up plan: Managed by psych Essential hypertension 32540961 I10 Pt denies chest pain, shortness of breath, headache, vision changes or edemaUsing med as prescribed BP is at goal todayWell controlled Generalize d anxiety disorder 24538886 F41.1 Taking med as prescribed Current dose is effectiveN o anxiety affecting quality of lifeWell controlled Hypertriglyceridemia 302 400606 E78.1 No changes in diet or lifestyleP t taking fenofibrat e as prescribed Will draw lipid panel and f/u on results PRN Primary insomnia 8364945 F51.01 Patient states trazodone was not helpful in the beginning but states it has been effective recentlySl eeping much better at this timeWill maintain current prescripti onWill follow-up at [facility] Schizophre tomas disorders 614799414 F20.9 Patient reports symptoms are well-contr olled at this timeCurren tly getting medication s from [employer] [facility] d to [facility] in [place] , currently scheduling therapy visitsWell -control d at this time Type 2 cristhian betes mellitus 76847989 E11.9 Taking med as prescribed , has a lot of GI symptomsWi ll stop immediate release metformin, change to XRA1c 7.2 on 02/05/2025 , FSBS 101Diabeti c eye exam - due for examWell-c ontrolled at this time, no changes in medication s indicated at this timeWill follow-up in 6 mos Adult heal th examination 490977029 Z00.00 Viral screening 88465190 4 Z11.59 One time screen age 18-65 and/or high risk for disease. Vasectomy 41504814 Z30.0 9 Pt would like to discuss vasectomyR eferred to urology Eruption 009257292 R21 Left dorsal wrist rashPt reports he [...] Name 02/04/2025 2 [place] Tobias Ledesma [id number] Tobias D Ledesma 02/04/2025 1 [facility] (HMO) [id number] Tobias Poon Ledesma [id number] Tobias D Ledesma 02/04/2025 1 [employer] [facility] (PPO) [id number] Tobias Ledesma [id number] Tobias Poon Ledesma 02/19/2025 2 [place] [facility] Tobias D Ledesma [id number] Tobias D Ledesma 02/04/2025 1 [facility] (HMO) Tobias D Ledesma [id number] Tobias D Ledesma 02/04/2025 [employer] Tobias D Ledesma LJetpac LJetpac Tobias D Ledesma 02/19/2025 1 [facility] (MEDICAID HMO) [id number] Tobias D Ledesma [id number] Tobias D Ledesma 02/04/2025 [employer] Tobias [...] n/v/d. Tx attempted: dayquil. Vanessa Martinez MD [address] [place] [address], [phone], [facility] 10/30/2024 21:30:29 02/05/2025 text/html Aida presents to the clinic today to establish care with this practice and with a new diagnosis of insulin-dependen t diabetes. Stephany [place] MD [address] [place] [address], [phone], [facility] 02/07/2025 12:04:33 02/18/2025 text/html Tobias comes into the clinic today for his annual CPE. Sanjeevani Deolapure, MD [address] [place] [address], [phone], [facility] 02/18/2025 23:22:33
[2025-04-24] VITALS (7 sets, daily range): BP systolic 102–137; BP diastolic 70–94; PULSE 81–102; RESP 13–25; TEMP 36.1–36.7; O2SAT 93–100; BMI 23.8
[2025-04-24] MEDS: Lactated Ringers 1,000 ML 100 ML IVCONT (06:45)
[2025-04-24 07:07] LABS: Glucose, Whole Blood 98 mg/dL (60-115)
--- NOTE | 2025-04-24 07:10 | HO.ANESPROP2 ---
HPI - Anesthesia Eval Consult details Narrative: for ECT PMFSH Active Problems Active Problems: All Active Problems Diabetes (Acute) New onset type 2 diabetes mellitus (Acute) Acute hypokalemia (Acute) Bipolar I disorder with catatonia (Acute) Past Medical History Medical History (Updated 02/11/25 @ 00:01 by Tristian Blanca) Acute hypokalemia Sepsis Acute hypoxemic respiratory failure Pneumonia Toxic metabolic encephalopathy Bipolar I disorder with catatonia Family History Family history of problems with anesthesia: No Surgical History Surgical History (Updated 02/02/25 @ 06:15 by Brianne Salmeron RN) History of appendectomy History of Problems with Anesthesia: No Social History Social History Household Members: Spouse and Children Household Members Other:: and 2 daughters Housing: House Do you presently have visiting nurse or other home services: No Unable to assess alcohol history related to: Unable to respond and Refusing to respond Patient Tobacco Use Status: Current everyday Tobacco user Tobacco use type: Cigarette Cigarette Packs Per Day: 1 Cigarettes Per Day: 20.0 Smoked in Last 30 Days: Yes e-Cigarette/Vaping Use: Former Use Second Hand Smoke Exposure: Yes (people smoking around him) Advance Directives: No Advance Directives Information Provided: Yes service: No Sexual orientation: Straight/Heterosexual Meds Allergies Allergy/AdvReac Type Severity Reaction Status Date / Time sertraline (From Zoloft) Allergy Unknown Verified 02/02/25 06:16 Home Medications ?Medication ?Instructions ?Recorded ?Confirmed ?Last Taken ?Type Jardiance 10 mg PO DAILY 02/25/25 02/25/25 Unknown History Exam Height,Weight and Vital Signs: Height 6 ft 1 in Weight 82 kg Last Vital Signs Temp 97 F 04/24/25 06:06 Pulse 81 04/24/25 06:06 Resp 20 04/24/25 06:06 BP 137/94 H 04/24/25 06:06 Pulse Ox 99 04/24/25 06:06 O2 Del Method Room Air 04/24/25 06:06 Pertinent Lab Results Pertinent Lab Results: Laboratory Tests 04/24/25 07:03 POC Glucose 98 Airway Mallampati Class: II TM Dist: >3cm Neck ROM: Full Loose/Missing/Broken Teeth: No Heart: ok Lungs: ok Assessment and Plan Assessment Anesthesia Assessment: Anesthesia Plan Discussed and Chart Reviewed Final Anesthetic Review Family History of Problems with Anesthesia: No History of Problems with Anesthesia: No NPO: Yes ASA Class: III Final Preanesthetic Review: No Changes in Pt Med Stat, Meds/Allgs Chart Reviewed, Consent Obtained/Reviewed and Anes Risks/Benef Reviewed Patient Risk: Intermediate Procedure Risk: Intermediate Anesthetic Plan Anesthetic Plan: GA and Agree w/ Assess. and Plan Disposition: Standard PACU
--- NOTE | 2025-04-24 07:30 | MHC.SHP ---
Pre-Procedural Eval Section A - 24 Hr Update-Section A only Date of Service: 04/24/25 The patient is an INPATIENT: No Section B - Complete if H&P > 30 days Chief Complaint: depression Details of Present Illness: pt stable doing well no medical changes no c/o side effects Allergies: Allergies Allergy/AdvReac Type Severity Reaction Status Date / Time sertraline (From Zoloft) Allergy Unknown Verified 02/02/25 06:16 Review of Systems Sugical H&P ROS: Negative: Constitution, Cardiovascular, Respiratory, Neurological and Psychiatric Exam Surgical H&P Exam: Normal: Heart, Normal: Lungs and Normal: Neurological Plan Diagnosis/Plan: Unchanged I have reviewed the history and physical and performed a pertinent physical examination on my patient. No changes have occurred unless specified. Time Spent With Patient Time: Total time managing care of this patient today ____ minutes.
--- NOTE | 2025-04-24 07:40 | HO.ECTPROC ---
ECT Procedure Note Diagnosis/Treatment Date of Service: 04/28/25 Diagnosis: Bipolar disorder Previous ECT Date: 02/02/25 Treatment: Maintenance Interval Clinical Notes: Pt feeling quite stable no c/o side effects no mirza no manic or dep sx . Feels very brief full about how he is feeling. No psychotic symptoms mood stable we did discuss possibility of seeing if we could extend some of his ECT treatment Time: Total time managing care of this patient today ____ minutes. ECT Settings Device: THYMATRON DGx Electrode Placement: Bifrontal Program/Pulse Width: 0.25 Energy Percent: 80 Seizure Duration By EEG (in seconds): 63 Medications Administration General Anesthetic: Etomidate (18) Muscle Relaxant: Succinylcholine (140) Ancillary Medications Miscillaneous Medications: Midazolam (2) Airway Management Airway Management: Bag Mask Ventilation Treatment Recommendations Energy Percent: 80 Notes: RTC 4nweeks for next maintenance ECT Pt Tolerated Procedure w/o Issue: Yes
== END 2025-04-24 09:10 | disposition home or self-care (01) ==
PROVIDERS: Visit Provider Psychiatry & Neurology Psychiatry
PROC: (CPT 90870; principal; 2025-04-24 07:00)
DX: F31.9 Bipolar disorder, unspecified (principal); E11.9 Type 2 diabetes mellitus without complications; E87.6 Hypokalemia; Z79.84 Long term (current) use of oral hypoglycemic drugs; Z88.8 Allergy status to other drugs, medicaments and biological substances; F17.210 Nicotine dependence, cigarettes, uncomplicated
CPT/HCPCS: 82947; 90870; J0330; J2250

== ENCOUNTER → 2025-04-24 05:56 | Outpatient (BNV) | payer OTHER, SELFPAY | PROVIDERS: Visit Provider Psychiatry & Neurology Psychiatry | DX: F33.2 Major depressive disorder, recurrent severe without psychotic features (principal) | CPT/HCPCS: 90870 ==

== ENCOUNTER 2025-05-29 06:01 | Day surgery (SDC) | payer OTHER, SELFPAY ==
--- OUTSIDE RECORDS SUMMARY | 2025-05-28 15:32 | XMS_ITS | Clinical Summary ---
Author Organization [facility] Address [address] [place] [address] Care Team Providers Care Geophysical Computer Name Role Phone CadenFred Primary Care Provider [phone] Medications * This document contains information received from the source organization and may not represent a complete record from that organization. No known medications Active Problems Problem Noted Date Diagnosed Date Outlet dysfunction constipation 08/21/2014 Anal pain 06/19/2014 Family History Medical History Relation Name Comments [...] Health Peggy ual Screening 10/01/2024 Influenza Vaccine (#1) 2025 06/15/2020 DTaP,Tdap,and Td Vaccines (2 - Td or Tdap) 10/22/2028 10/22/2018 RSV Vaccine (60+ years old a nd patients) (1 - 1-dose 75+ series) 2063 Insurance [facility] MEDICAID Care Teams Geophysical Computer Relationship Specialty Start Date End Date Fred Negrete DO [address] [place] [id number] PCP - General 11/20/24
--- OUTSIDE RECORDS SUMMARY | 2025-05-28 15:32 | XMS_ITS | Continuity of Care Document ---
Author Organization [facility] Address [address] [place] [address] [address] [place], [place] Phone [phone] Care Team Providers Care Councilman Name Role Phone Latha Mahajan NP Care Team Information Supervisor Fish Processing U navailable BALJEET MOTLEY M.D. Care Team Information Rec eiver Unavailable Latha Mahajan NP Primary Care Physician Unavailab le Social History Type Date Description Comments Sex Male Sex Unknown
[2025-05-29] VITALS (8 sets, daily range): BP systolic 94–124; BP diastolic 66–88; PULSE 75–108; RESP 14–18; TEMP 36.3–37.2; O2SAT 91–97; BMI 23.7
[2025-05-29 06:54] LABS: Glucose, Whole Blood 107 mg/dL (60-115)
--- NOTE | 2025-05-29 07:38 | HO.ANESPROP2 ---
HPI - Anesthesia Eval Consult details Narrative[facility] Problems Active Problems: All Active Problems Diabetes (Acute) New onset type 2 diabetes mellitus (Acute) Acute hypokalemia (Acute) Bipolar I disorder with catatonia (Acute) Past Medical History Medical History (Updated 02/11/25 @ 00:01 by Tristian Blanca) Acute hypokalemia Sepsis Acute hypoxemic respiratory failure Pneumonia Toxic metabolic encephalopathy Bipolar I disorder with catatonia Family History Family history of problems with anesthesia: No Surgical History Surgical History (Updated 02/02/25 @ 06:15 by Brianne Salmeron RN) History of appendectomy History of Problems with Anesthesia: No Social History Social History Household Members: Spouse and Children Household Members Other:: and 2 daughters Housing: House Do you presently have visiting nurse or other home services: No Unable to assess alcohol history related to: Unable to respond and Refusing to respond Patient Tobacco Use Status: Current everyday Tobacco user Tobacco use type: Cigarette Cigarette Packs Per Day: 1 Cigarettes Per Day: 20.0 e-Cigarette/Vaping Use: Former Use Second Hand Smoke Exposure: Yes (people smoking around him) Advance Directives: No Advance Directives Information Provided: Yes service: No Sexual orientation: Straight/Heterosexual Meds Allergies Allergy/AdvReac Type Severity Reaction Status Date / Time sertraline (From Zoloft) Allergy Unknown Verified 02/02/25 06:16 Home Medications ?Medication ?Instructions ?Recorded ?Confirmed ?Last Taken ?Type Jardiance 10 mg PO DAILY 02/25/25 02/25/25 Unknown History Exam Height,Weight and Vital Signs: Height 6 ft 1 in Weight 81.647 kg Last Vital Signs Temp 97.4 F 05/29/25 06:19 Pulse 99 05/29/25 06:19 Resp 18 05/29/25 06:19 BP 124/88 05/29/25 06:19 Pulse Ox 97 05/29/25 06:19 O2 Del Method Room Air 05/29/25 06:19 Pertinent Lab Results Pertinent Lab Results: Laboratory Tests 05/29/25 06:51 POC Glucose 107 Airway Mallampati Class: I TM Dist: >3cm Neck ROM: Full Loose/Missing/Broken Teeth: No Heart: ok Lungs: ok Assessment and Plan Assessment Anesthesia Assessment: Anesthesia Plan Discussed and Chart Reviewed Final Anesthetic Review Family History of Problems with Anesthesia: No History of Problems with Anesthesia: No NPO: Yes ASA Class: III Final Preanesthetic Review: No Changes in Pt Med Stat, Meds/Allgs Chart Reviewed, Consent Obtained/Reviewed and Anes Risks/Benef Reviewed Patient Risk: Intermediate Procedure Risk: Intermediate Anesthetic Plan Anesthetic Plan: GA and Agree w/ Assess. and Plan Disposition: Standard PACU
--- NOTE | 2025-05-29 07:45 | MHC.SHP ---
Pre-Procedural Eval Section A - 24 Hr Update-Section A only Date of Service: 05/29/25 The patient is an INPATIENT: No Section B - Complete if H&P > 30 days Chief Complaint: depression Details of Present Illness: pt stable doing well Allergies: Allergies Allergy/AdvReac Type Severity Reaction Status Date / Time sertraline (From Zoloft) Allergy Unknown Verified 02/02/25 06:16 Review of Systems Sugical H&P ROS: Negative: Constitution, Cardiovascular, Respiratory, Neurological and Psychiatric Exam Surgical H&P Exam: Normal: Heart, Normal: Lungs and Normal: Neurological Plan Diagnosis/Plan: Unchanged I have reviewed the history and physical and performed a pertinent physical examination on my patient. No changes have occurred unless specified. Time Spent With Patient Time: Total time managing care of this patient today ____ minutes.
--- NOTE | 2025-05-29 07:46 | HO.ECTPROC ---
ECT Procedure Note Diagnosis/Treatment Date of Service: 05/29/25 Diagnosis: Bipolar disorder Previous ECT Date: 02/02/25 Treatment: Maintenance Interval Clinical Notes: Pt feeling quite stable no c/o side effects no mirza no manic or dep sx . Feels very brief full about how he is feeling. No psychotic symptoms mood stable we did discuss possibility of seeing if we could extend some of his ECT treatment Time: Total time managing care of this patient today ____ minutes. ECT Settings Device: THYMATRON DGx Electrode Placement: Bifrontal Program/Pulse Width: 0.25 Energy Percent: 80 Seizure Duration By EEG (in seconds): 63 Medications Administration General Anesthetic: Etomidate (18) Muscle Relaxant: Succinylcholine (140) Ancillary Medications Miscillaneous Medications: Midazolam (2) Airway Management Airway Management: Bag Mask Ventilation Treatment Recommendations Energy Percent: 80 Notes: RTC 4nweeks for next maintenance ECT Pt Tolerated Procedure w/o Issue: Yes
== END 2025-05-29 09:13 | disposition home or self-care (01) ==
PROVIDERS: Visit Provider Psychiatry & Neurology Psychiatry
PROC: (CPT 90870; principal; 2025-05-29 08:30)
DX: F31.9 Bipolar disorder, unspecified (principal); F06.1 Catatonic disorder due to known physiological condition; F41.1 Generalized anxiety disorder; E87.6 Hypokalemia; I10 Essential (primary) hypertension; E78.1 Pure hyperglyceridemia; E11.9 Type 2 diabetes mellitus without complications; F51.01 Primary insomnia; Z79.84 Long term (current) use of oral hypoglycemic drugs; Z88.8 Allergy status to other drugs, medicaments and biological substances
CPT/HCPCS: 82947; 90870; J0330; J2250

== ENCOUNTER → 2025-05-29 06:01 | Outpatient (BNV) | payer OTHER, SELFPAY | PROVIDERS: Visit Provider Psychiatry & Neurology Psychiatry | DX: F33.2 Major depressive disorder, recurrent severe without psychotic features (principal) | CPT/HCPCS: 90870 ==

== ENCOUNTER 2025-07-10 05:57 | Day surgery (SDC) | payer OTHER, SELFPAY ==
--- OUTSIDE RECORDS SUMMARY | 2025-06-23 16:02 | XMS_ITS | Clinical Summary ---
Author Organization [facility] Address [address] [place] [address] Care Team Providers Care Fruit Harvester Machine Operator Name Role Phone CadenFred Primary Care Provider [phone] Medications * This document contains information received [...] Years) (1 of 2 - PCV) 2007 Alcohol/Substance Use Screening 10/01/2024 Depression Screening and Follow-Up 10/01/2024 Social Drivers of Health Peggy ual Screening 10/01/2024 COVID-19 Vaccine (2024- season) 2025 08/10/2022, 02/20/2021, 01/23/2021 Influenza Vaccine (#1) 2025 06/15/2020 DTaP,Tdap,and Td Vaccines (2 - Td or Tdap) 10/22/2028 10/22/2018 RSV Vaccine (60+ years old a nd patients) (1 - 1-dose 75+ series) 2063 Insurance [facility] MEDICAID Care Teams Fruit Harvester Machine Operator Relationship Specialty Start Date End Date Fred Negrete DO [address] [place] [id number] PCP - General 11/20/24
--- OUTSIDE RECORDS SUMMARY | 2025-06-23 16:02 | XMS_ITS | Continuity of Care Document ---
Author Organization [facility] Address [address] [place] [address] [address] [place], [place] Phone [phone] Care Team Providers Care Labor Relations Analyst Name Role Phone Latha Mahajan NP Care Team Information Practical Nursing Teacher U navailable BALJEET MOTLEY M.D. Care Team Information Rec eiver Unavailable Latha Mahajan NP Primary Care Physician Unavailab le Social History Type Date Description Comments Sex Male Sex Unknown
[2025-07-10] VITALS (8 sets, daily range): BP systolic 96–140; BP diastolic 57–94; PULSE 76–120; RESP 16; TEMP 36.1–37.3; O2SAT 96–98; BMI 23.7
--- NOTE | 2025-07-10 06:45 | P.CONAN_ITS ---
[facility] Active Problems Active Problems: All Active Problems Diabetes (Acute) New onset type 2 diabetes mellitus (Acute) Acute hypokalemia (Acute) Bipolar I disorder with catatonia (Acute) Past Medical History Medical History (Updated 02/11/25 @ 00:01 by Tristian Blanca) Acute hypokalemia Sepsis Acute hypoxemic respiratory failure Pneumonia Toxic metabolic encephalopathy Bipolar I disorder with catatonia Family History Family history of problems with anesthesia: No Surgical History Surgical History (Updated 02/02/25 @ 06:15 by Brianne Salmeron RN) History of appendectomy History of Problems with Anesthesia: No Social History Social History Household Members: Spouse and Children Household Members Other:: and 2 daughters Housing: House Do you presently have visiting nurse or other home services: No Unable to assess alcohol history related to: Unable to respond and Refusing to respond Patient Tobacco Use Status: Current everyday Tobacco user Tobacco use type: Cigarette Cigarette Packs Per Day: 1 Cigarettes Per Day: 20.0 e-Cigarette/Vaping Use: Former Use Second Hand Smoke Exposure: Yes (people smoking around him) Advance Directives: No Advance Directives Information Provided: Yes service: No Sexual orientation: Straight/Heterosexual Meds Allergies Allergy/AdvReac Type Severity Reaction Status Date / Time sertraline (From Zoloft) Allergy Unknown Verified 02/02/25 06:16 Active Medications: Current Medications Lactated Ringer's (Lr) 1,000 mls @ 50 mls/hr IVCONT .Q20H VLADIMIR Naloxone HCl (Naloxone Hcl 0.4 Mg/Ml Vial) 0.04 mg IVPUSH Q5M PRN PRN Reason: Excessive sedation or RR < 8 Home Medications ?Medication ?Instructions ?Recorded ?Confirmed ?Last Taken ?Type Jardiance 10 mg PO DAILY 02/25/2501/30 Unknown History Exam Height,Weight and Vital Signs: Height 6 ft 1 in Weight 81.647 kg Last Vital Signs Temp 97.0 F 07/10/25 06:28 Pulse 76 07/10/25 06:28 Resp 16 07/10/25 06:28 BP 126/80 07/10/25 06:28 Pulse Ox 98 07/10/25 06:28 O2 Del Method Room Air 07/10/25 06:28 Airway Mallampati Class: II TM Dist: >3cm Neck ROM: Full Heart: rrr Lungs: cta Assessment and Plan Assessment Anesthesia Assessment: Anesthesia Plan Discussed and Chart Reviewed Final Anesthetic Review Family History of Problems with Anesthesia: No History of Problems with Anesthesia: No NPO: Yes ASA Class: III Final Preanesthetic Review: No Changes in Pt Med Stat, Meds/Allgs Chart Reviewed and Consent Obtained/Reviewed Patient Risk: Intermediate Procedure Risk: Intermediate Anesthetic Plan Anesthetic Plan: GA Disposition: Standard PACU
[2025-07-10 06:53] LABS: Glucose, Whole Blood 93 mg/dL (60-115)
--- NOTE | 2025-07-10 07:38 | MHC.SHP ---
Pre-Procedural Eval Section A - 24 Hr Update-Section A only Date of Service: 07/10/25 The patient is an INPATIENT: No Changes since office visit: No Cold of Flu in the past 2 weeks, No New Medical Problems, No Changes in Medication and No Patient answered all questions The patient has been examined within 24 hours of the surgical procedure. The History & Physical has been completed within 30 days and I have reviewed it.: Yes Section B - Complete if H&P > 30 days Chief Complaint: depression Details of Present Illness: pt reports feeling good and is w/out depression Medical History: No relevant PMH Allergies: Allergies Allergy/AdvReac Type Severity Reaction Status Date / Time sertraline (From Zoloft) Allergy Unknown Verified 02/02/25 06:16 Review of Systems Sugical H&P ROS: Negative: Constitution and Psychiatric Exam Surgical H&P Exam: Normal: Heart (RRR; no murmurs), Normal: Lungs (CTA b/l throughout) and Normal: Neurological (CN2-12 grossly intact) Plan Diagnosis/Plan: Unchanged I have reviewed the history and physical and performed a pertinent physical examination on my patient. No changes have occurred unless specified. Time Spent With Patient Time: Total time managing care of this patient today ____ minutes.
--- NOTE | 2025-07-10 07:40 | HO.ECTPROC ---
ECT Procedure Note Diagnosis/Treatment Date of Service: 07/10/25 Diagnosis: Bipolar disorder Previous ECT Date: 05/29/25 Treatment: Maintenance Interval Clinical Notes: patient reports mood is good he feels great. Pt denies depression or manic symptoms and says sleeping well. He would like this ECT to be his last which he discussed as possibility with Dr. Emmanuel. Time: Total time managing care of this patient today ____ minutes. ECT Settings Device: THYMATRON DGx Electrode Placement: Bifrontal Program/Pulse Width: 0.25 Energy Percent: 75 Seizure Duration By EEG (in seconds): 74 By Motor Observation (in seconds): 30 Medications Administration General Anesthetic: Etomidate (18) Muscle Relaxant: Succinylcholine (180) Ancillary Medications Miscillaneous Medications: Midazolam (2) Airway Management Airway Management: Bag Mask Ventilation Treatment Recommendations No Changes Recommended: No change Electrode Placement: Bifrontal Program/Pulse Width: 0.25 Energy Percent: 75 Notes: pt reports good mood; no manic symptoms, sleeping well and feels he no longer need ECT. Pt had discussed this w/ Dr. Emmanuel. Pt agrees to have one more ECT scheduled for 6 weeks and will call to cancel if he finds he's remained stable Pt Tolerated Procedure w/o Issue: Yes
[2025-07-10] MEDS: Lactated Ringers 1,000 ML 50 ML IVCONT (08:51)
== END 2025-07-10 09:19 | disposition home or self-care (01) ==
PROVIDERS: Visit Provider Psychiatry & Neurology Psychiatry
PROC: (CPT 90870; principal; 2025-07-10 07:00)
DX: F31.9 Bipolar disorder, unspecified (principal); F41.1 Generalized anxiety disorder; F51.01 Primary insomnia; I10 Essential (primary) hypertension; E11.9 Type 2 diabetes mellitus without complications; E78.1 Pure hyperglyceridemia; Z79.84 Long term (current) use of oral hypoglycemic drugs; Z79.899 Other long term (current) drug therapy; Z88.8 Allergy status to other drugs, medicaments and biological substances
CPT/HCPCS: 82947; 90870; J0330; J2250

== ENCOUNTER → 2025-07-10 05:57 | Outpatient (BNV) | payer OTHER, SELFPAY | PROVIDERS: Visit Provider Psychiatry & Neurology Psychiatry | DX: F33.2 Major depressive disorder, recurrent severe without psychotic features (principal) | CPT/HCPCS: 90870 ==

== ENCOUNTER → 2025-08-26 14:00 | Outpatient (BNVA) | payer OTHER, SELFPAY | PROVIDERS: Visit Provider Psychiatry & Neurology Psychiatry | DX: F31.74 Bipolar disorder, in full remission, most recent episode manic (principal); Z81.8 Family history of other mental and behavioral disorders; Z79.899 Other long term (current) drug therapy | CPT/HCPCS: 99212 ==